=== PATIENT | male | born 1955 | race Caucasian/White ===

== ENCOUNTER 2022-11-01 13:18 | Outpatient (REF) | payer OTHER, SELFPAY ==
[2022-11-01 14:51] LABS: Hematocrit 40.1 % (42.0-52.0); Hemoglobin 13.8 g/dl (14.0-18.0); Mean Corpuscular HGB Conc 34.4 g/dl (31.0-36.0); Mean Corpuscular Hemoglobin 31.9 pg (27.0-33.0); Mean Corpuscular Volume 92.8 fL (80.0-98.0); Mean Platelet Volume 9.9 fL (9.4-12.4); Platelet Count 190 X10*3/uL (160-400); Red Blood Count 4.32 X10*6/uL (4.60-5.80); Red Cell Distribution Width 11.9 % (11.0-16.0); White Blood Count 9.4 X10*3/uL (4.8-10.8)
[2022-11-01 16:13] LABS: Ferritin 467 ng/mL (20-250); Folate 8.1 ng/mL (> or = 4.0); Vitamin B12 235 pg/mL (200-900)
[2022-11-01 16:51] LABS: Alanine Aminotransferase 11 U/L (0-40); Albumin Level 4.2 g/dL (3.5-5.0); Alkaline Phosphatase 76 U/L (39-117); Anion Gap 13 (12-20); Aspartate Amino Transferase 14 U/L (5-37); Bilirubin Total 0.8 mg/dL (0.0-1.0); Blood Urea Nitrogen 7 mg/dL (9-16); Calcium 9.4 mg/dL (8.4-10.2); Carbon Dioxide 25 mmol/L (22-29); Chloride 103 mmol/L (96-108); Estimated Glomerular Filt Rate > 60; Glucose Random 55 mg/dL (60-115); Iron 85 mcg/dL (45-160); Percent Iron Saturation 36 % (15-50); Potassium 4.1 mmol/L (3.3-5.1); Sodium 137 mmol/L (135-145); Total Iron Binding Capacity 236 mcg/dL (228-428); Total Protein 6.9 g/dL (6.5-8.0); Unsaturated Iron Binding 151 ug/dL
[2022-11-03 22:53] LABS: Immunoglobulin A 237 mg/dL (70-320)
[2022-11-04 07:13] LABS: Transglutaminase IgA <1.0 U/mL
== END 2022-11-01 13:19 | disposition home or self-care (01) ==
LOC: HO.LAB 13:18
PROVIDERS: PCP Internal Medicine; Visit Provider Internal Medicine
DX: K92.1 Melena (principal)
CPT/HCPCS: 36415; 80053; 82607; 82728; 82746; 82784; 83540; 85027; 86364; 99202

== ENCOUNTER 2022-12-21 11:02 | Day surgery (SDC) | payer OTHER, SELFPAY ==
--- NOTE | 2022-12-20 10:38 | HO.ANESPROP2 ---
HPI - Anesthesia Eval Consult details Narrative: 67yo M for Upper Endoscopy and Colonoscopy PMFSH Active Problems Active Problems: All Active Problems (Updated 11/01/22 @ 13:43 by Yana Mendoza MD) Melena (Acute) Past Medical History Medical History Hx of blood clots Talar dome fracture Family History Family History Mother Intestinal cancer Surgical History Surgical History History of esophagogastroduodenoscopy (EGD) History of surgery on wrist Hx of cataract surgery Hx of colonoscopy Hx of gastric bypass Hx of neck surgery Hx of shoulder surgery Hx of spinal surgery Hx of total knee replacement Social History Social History Household Members: Spouse Alcohol intake: current Alcohol intake frequency: a few times a week Patient Tobacco Use Status: Former Tobacco user Meds Allergies Allergy/AdvReac Type Severity Reaction Status Date / Time No Known Allergies Allergy Verified 12/21/22 11:51 Home Medications Medication Instructions Recorded Confirmed Last Taken Type alfuzosin 10 mg tablet,extended 10 mg PO DAILY 11/01/22 12/21/22 Unknown History release 24 hr amoxicillin 250 mg capsule 250 mg PO BID PRN 11/01/22 Unknown History diclofenac sodium 1 % topical gel g topical BID 11/01/22 Unknown History gabapentin 600 mg tablet 600 mg PO TID 11/01/22 12/21/22 Unknown History sulindac 150 mg tablet 150 mg PO BID 11/01/22 12/21/22 Unknown History tadalafil 5 mg tablet 5 mg PO DAILY 11/01/22 12/21/22 Unknown History tolterodine 4 mg capsule,extended 4 mg PO DAILY 11/01/22 12/21/22 Unknown History release 24 hr Exam Exam Date and Time: December 20, 2022 1038 Pertinent Lab Results Pertinent Lab Results: Laboratory Tests 11/01/22 11/01/22 14:03 14:03 WBC 9.4 Hgb 13.8 L Hct 40.1 L Plt Count 190 Sodium 137 Potassium 4.1 Chloride 103 Carbon Dioxide 25 BUN 7 L Creatinine 0.84 Assessment and Plan Assessment Anesthesia Assessment: Chart Reviewed
[2022-12-21 11:35] VITALS: BMI 37.2
--- NOTE | 2022-12-21 11:41 | MHC.SHP ---
Pre-Procedural Eval Section A Date of Service: 12/21/22 Section B Chief Complaint: Melena,anemia, Details of Present Illness: PMH: Hx of blood clots Talar dome fracture Surgical History: History of esophagogastroduodenoscopy (EGD) History of surgery on wrist Hx of cataract surgery Hx of colonoscopy Hx of gastric bypass Hx of neck surgery Hx of shoulder surgery Hx of spinal surgery Hx of total knee replacement Relevant Social History: None Present Medications: see Short Stay Collaborative assessment Allergies: Allergies Allergy/AdvReac Type Severity Reaction Status Date / Time No Known Allergies Allergy Verified 11/01/22 13:22 Review of Systems Review of Systems Comment: Ten point ROS negative Exam Exam Comment: Gen appear: No acute distress HEENT: no icterus Chest: No overt resp distress Abd: soft, nontender, nondistended Psych: Stable affect, answering questions appropriately Neuro: A/Ox3 noted to move all extremities spontaneously Ext: no peripheral edema Plan Diagnosis/Plan: Unchanged I have reviewed the history and physical and performed a pertinent physical examination on my patient. No changes have occurred unless specified. Time Spent With Patient Time: Total time managing care of this patient today ____ minutes.
--- NOTE | 2022-12-21 11:51 | P.OP_ITS ---
Operative Note Operative Note Date of Service: 12/21/22 Narrative: Procedure:?Esophagogastroduodenoscopy and colonoscopy Endoscopist:?Yana Mendoza MD Indication:?? Colitis, abd pain, N,V Anesthesia Provider:?Estela Farmer MD Anesthesia Type:?MAC Instrument:?Olympus GIF-H190, PCF-H190L EGD Procedure:?? The procedure, indications, preparation and potential complications were reviewed with the patient, who indicated understanding and gave written informed consent to proceed. A physical exam was performed. The endoscope was introduced through the mouth, and advanced to the jejunum. The mucosa was carefully examined on slow withdrawal of the endoscope.? There were no immediate complications.? Patient tolerated the procedure well. EGD Findings:? * Esophagus:? Normal mucosa noted in the entire esophagus.? The Z-line is at 35 cm. There was a large hiatal hernia with diaphragmatic pinch at 42 cm. * Stomach:? Erythema erosions with oozing were noted in the hiatal hernia. The gastrojejunal anastomosis is at 47 cm. Cold forceps biopsies were taken to r/o H pylori. * Jejunum:? Normal jejunal mucosa was noted in both the limbs. Cold forceps biopsies were taken for histology. Colonoscopy Procedure:? The patient was then turned for the colonoscopy. A digital rectal exam was performed which was abnormal for external hemorrhoids.? A distal attachment cap was affixed to the tip of the scope and the colonoscope was then inserted through the anus and advanced through the colon to the cecum at 75 cm and terminal ileum. Appendiceal orifice and ileocecal valve were identified. Mucosa was carefully examined under high definition white light as the instrument was slowly withdrawn in a retrograde panoramic fashion. Retroflexion was performed in rectum. The procedure was not difficult. There were no immediate obvious complications. The quality of the prep was BBPS: 2+2+2 = adequate Withdrawal time: 13 minutes Limitations: No limitation. Findings: Mucosa: Scant melena was noted in left side of the colon which was flushed and suctioned. Normal mucosa to cecum and terminal ileum.? Protruding lesions: * Medium internal hemorrhoids without stigmata of recent bleeding. Excavated lesions: * Diverticulosis throughout whole colon. Impression: 1. Normal esophageal mucosa 2. Oscar erosions 3. Hiatal hernia 4. Gastrojejunal bypass (biopsy) 5. Normal jejunal mucosa (biopsy) 6. Normal colon and terminal ileum mucosa 7. Diverticulosis 8. Internal and external hemorrhoids Recommendations:?? * Anemia and melena likely 2/2 spontaneously oozing Oscar erosions. * Continue PPI therapy * Avoid NSAIDs * Follow path results * Repeat colonoscopy in 5 years due to fam hx of CRC
--- NOTE | 2022-12-21 11:55 | HO.ANESPROP2 ---
[facility] Active Problems Active Problems: All Active Problems (Updated 11/01/22 @ 13:43 by Yana Mendoza MD) Melena (Acute) Past Medical History Medical History Hx of blood clots Talar dome fracture Functional capacity: independent ambulation Family History Family History Mother Intestinal cancer Surgical History Surgical History History of esophagogastroduodenoscopy (EGD) History of surgery on wrist Hx of cataract surgery Hx of colonoscopy Hx of gastric bypass Hx of neck surgery Hx of shoulder surgery Hx of spinal surgery Hx of total knee replacement Social History Social History Household Members: Spouse Alcohol intake: current Alcohol intake frequency: a few times a week Patient Tobacco Use Status: Former Tobacco user Are you DNR?: No Advance Directives: No Advance Directives Information Provided: Yes Nutrition Risks: No Nutritional Risk Meds Allergies Allergy/AdvReac Type Severity Reaction Status Date / Time No Known Allergies Allergy Verified 12/21/22 11:51 Active Medications: Current Medications Lactated Ringer's (Lr) 1,000 mls @ 100 mls/hr IVCONT .Q10H [facility] Home Medications Medication Instructions Recorded Confirmed Last Taken Type alfuzosin 10 mg tablet,extended 10 mg PO DAILY 11/01/22 Unknown History release 24 hr amoxicillin 250 mg capsule 250 mg PO BID PRN 11/01/22 Unknown History diclofenac sodium 1 % topical gel g topical BID 11/01/22 Unknown History gabapentin 600 mg tablet 600 mg PO TID 11/01/22 Unknown History meloxicam 7.5 mg tablet 7.5 mg PO BID 11/01/22 Unknown History omeprazole 20 mg capsule,delayed 20 mg PO DAILY 11/01/22 Unknown History release sulindac 150 mg tablet 150 mg PO BID 11/01/22 Unknown History tadalafil 5 mg tablet 5 mg PO DAILY 11/01/22 Unknown History tolterodine 4 mg capsule,extended 4 mg PO DAILY 11/01/22 Unknown History release 24 hr Exam Exam Date and Time: December 21, 2022 1155 Height,Weight and Vital Signs: Height 6 ft Weight 124.284 kg Airway Mallampati Class: III TM Dist: >3cm Neck ROM: Full Denture: Upper and Lower Heart: RRR Lungs: CTA Assessment and Plan Final Anesthetic Review ASA Class: III Final Preanesthetic Review: Meds/Allgs Chart Reviewed, Consent Obtained/Reviewed and Anes Risks/Benef Reviewed Patient Risk: Intermediate Procedure Risk: Low Anesthetic Plan Anesthetic Plan: MAC: Disposition: Standard PACU
[2022-12-21] MEDS: Lactated Ringers 1,000 ML 100 ML IVCONT (11:59)
[2022-12-21 12:10] VITALS: BP 124/80; PULSE 78; RESP 18; TEMP 36.6; O2SAT 95
--- NOTE | 2022-12-21 12:36 | PC.NURSE ---
dr. felix aware that patient recently completed a 14 days holter monitor at [facility] and patient stated no findings.
[2022-12-21 13:24] VITALS: BP 121/60; PULSE 96; RESP 16; TEMP 37.2; O2SAT 96
--- NOTE | 2022-12-21 13:33 | HO.POSTANES ---
Post Anesthesia Evaluation Post Anesthesia Evaluation Date of Service: 12/21/22 Vital Signs: Vital Signs Temp Pulse Resp BP Pulse Ox O2 Del Method 12/21/22 12:10 97.9 F 78 18 124/80 95 Room Air Anesthesia: Monitored Mental Status: Awake Pain Control: Satisfactory Nausea/Vomiting: None Hydration: Adequate Anesthesia-Related Issues: No Anes. Related Issues
[2022-12-21 13:39] VITALS: BP 120/67; PULSE 76; RESP 16; TEMP 37.2; O2SAT 97
== END 2022-12-21 14:23 | disposition home or self-care (01) ==
PROVIDERS: PCP Internal Medicine; Visit Provider Internal Medicine
PROC: (CPT 45378; principal; 2022-12-21 13:10)
DX: K92.1 Melena (principal); Z80.0 Family history of malignant neoplasm of digestive organs; K57.30 Diverticulosis of large intestine without perforation or abscess without bleeding; K64.8 Other hemorrhoids; K64.4 Residual hemorrhoidal skin tags; D64.9 Anemia, unspecified; K25.4 Chronic or unspecified gastric ulcer with hemorrhage; K44.9 Diaphragmatic hernia without obstruction or gangrene; Z79.899 Other long term (current) drug therapy; Z98.84 Bariatric surgery status; Z98.0 Intestinal bypass and anastomosis status; Z98.890 Other specified postprocedural states; Z87.891 Personal history of nicotine dependence
CPT/HCPCS: 45378; 43239; 88305; 88342

== ENCOUNTER → 2022-12-21 11:02 | Outpatient (BNV) | payer OTHER, SELFPAY | PROVIDERS: PCP Internal Medicine; Visit Provider Internal Medicine | DX: K25.9 Gastric ulcer, unspecified as acute or chronic, without hemorrhage or perforation (principal); K57.30 Diverticulosis of large intestine without perforation or abscess without bleeding; K64.8 Other hemorrhoids | CPT/HCPCS: 43239; 45378 ==

== ENCOUNTER 2023-01-12 13:22 | Outpatient (AMB) | payer OTHER, SELFPAY ==
--- NOTE | 2023-01-12 13:24 | A.OFFVIS_ITS ---
Intake Vital Signs 01/12/23 13:25 Height 6 ft Weight 250 lb BMI 33.9 BP 94/57 L Blood Pressure Location Rt brachial Position Sitting Pulse 71 Intake Visit Reasons: s/p egd/colon Intake Note: Aris presents in the office today in follow up of EGD/ Colonosocopy. CC: He reports he continues to have black stools and iron taste . Patient decreased Omeprazole from BID to QD due to hives and is now taking Pepcid AC at bedtime. 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 11/01/22: Pt reports he first noticed black stools 1.5y ago and now becoming more frequent. Last black BM was today. Stools are loose. Reports nausea and frequent burping with this. No change in appetite, has been gaining weight in fact. USed to take meloxicam BID but stopped it a few months ago due to black stools. Had blood work done just today at [place], but we do not records for these. Does not recall if he has anemia but likely did have iron deficiency at some point as reports being on iron supplements for 2-3 years now. Last colo was 3 years ago done at [facility], no polyps but was told to return in 5 years due to fam hx of CRC in mother. 12/21/22: Impression: 1. Normal esophageal mucosa 2. Oscar erosions 3. Hiatal hernia 4. Gastrojejunal bypass (biopsy) 5. Normal jejunal mucosa (biopsy) 6. Normal colon and terminal ileum mucosa 7. Diverticulosis 8. Internal and external hemorrhoids Recommendations:?? * Anemia and melena likely 2/2 spontaneously oozing Oscar erosions. * Continue PPI therapy * Avoid NSAIDs * Follow path results * Repeat colonoscopy in 5 years due to fam hx of CRC? Path: A.? Jejunum, biopsy:? Small intestinal mucosa with patchy hemosiderin deposition; otherwise within normal limits. B.? Blind limb, biopsy:? Small intestinal mucosa with patchy hemosiderin depo sition and reactive appearing lymphoid aggregates; otherwise within normal limits. C.? Stomach, biopsy:? Oxyntic mucosa with mild chronic inactive inflammation; no Helicobacter organisms seen. 01/12/23: Had ??hives after increasing omeprazole to BID so has now switched to taking omeprazole 20 in AM and pepcid 20 in PM. Continues to notice black stools occasionally but also remains on iron supplements. Otherwise no abd pain, N,V. PFSH Medical History (Updated 01/12/23 @ 14:05 by Yana Mendoza MD) Hx of blood clots Talar dome fracture Surgical History (Updated 01/12/23 @ 14:05 by Yana Mendoza MD) History of esophagogastroduodenoscopy (EGD) History of surgery on wrist Hx of cataract surgery Hx of colonoscopy Hx of gastric bypass Hx of neck surgery Hx of shoulder surgery Hx of spinal surgery Hx of total knee replacement Family History Mother Intestinal cancer Social History Household Members: Spouse Alcohol intake: current Alcohol intake frequency: a few times a week Patient Tobacco Use Status: Former Tobacco user Review of Systems Const All systems reviewed & are unremarkable except as noted in HPI and below Physical Exam Vital Signs: Last Vital Signs Pulse 71 01/12/23 13:25 BP 94/57 L 01/12/23 13:25 BMI result Body Mass Index 33.9 Gen appear: NAD HEENT: nonicteric, no cervical lymphadenopathy Chest: CTA CVS: Regular S1/S2 Abd: soft, nontender, nondistended, bowel sounds + Ext: no peripheral edema Neuro: A/Ox3, noted to move all extremities spontaneously Psych: interacting appropriately Assessment & Plan Assessment & Plan (1) Anemia: Code(s): D64.9 - Anemia, unspecified (2) Melena: Code(s): K92.1 - Melena (3) Hx of gastric bypass: Code(s): Z98.84 - Bariatric surgery status Plan Reviewed with the pt that LUIS likely a combination of poor absorption with RYGB and oozing from Oscar erosions. Plan: - Check CBC and ferritin - If improving, will discontinue night time pepcid and monitor - If not improving will trial IV iron and review response in 3 months - Surgery referral if has evidence of ongoing losses i.e iron stores drop again after adequate repletion Follow up in 3 months Orders: Orders Complete Blood Count no Diff Today K92.1 - Melena Ferritin Today K92.1 - Melena Medications: New omeprazole 40 mg PO DAILY 90 caps 0RF Discontinued omeprazole Discontinued Reason: Doctor's Order 20 mg PO DAILY Coding Level of Care Code Est Pt Level 4 (43323) Diagnoses Anemia D64.9 Melena K92.1 Hx of gastric bypass Z98.84
[2023-01-12 13:25] VITALS: BP 94/57; PULSE 71; BMI 33.9
== END 2023-01-12 14:01 | disposition home or self-care (01) ==
PROVIDERS: PCP Internal Medicine; Visit Provider Internal Medicine
DX: D64.9 Anemia, unspecified (principal); K92.1 Melena; Z98.84 Bariatric surgery status
CPT/HCPCS: 99214

== ENCOUNTER 2023-01-12 13:22 | Outpatient (REF) | payer OTHER, SELFPAY ==
[2023-01-12 15:24] LABS: Hematocrit 38.4 % (42.0-52.0); Hemoglobin 13.3 g/dl (14.0-18.0); Mean Corpuscular HGB Conc 34.6 g/dl (31.0-36.0); Mean Corpuscular Volume 92.5 fL (80.0-98.0); Mean Platelet Volume 9.7 fL (9.4-12.4); Platelet Count 173 X10*3/uL (160-400); Red Blood Count 4.15 X10*6/uL (4.60-5.80); Red Cell Distribution Width 11.8 % (11.0-16.0); White Blood Count 7.9 X10*3/uL (4.8-10.8)
[2023-01-12 16:47] LABS: Ferritin 493 ng/mL (20-250)
== END 2023-01-12 13:23 | disposition home or self-care (01) ==
LOC: HO.LAB 13:22
PROVIDERS: PCP Internal Medicine; Visit Provider Internal Medicine
DX: K92.1 Melena (principal); D64.9 Anemia, unspecified; Z98.84 Bariatric surgery status
CPT/HCPCS: 36415; 82728; 85027; 99212

== ENCOUNTER 2023-01-31 07:10 | Outpatient (REF) | payer OTHER, SELFPAY ==
--- NOTE | ~2023-01-31 | XR_ITS ---
EXAMINATION: XR SHOULDER, RIGHT CLINICAL INFORMATION: Pain in right shoulder COMPARISON: None available. TECHNIQUE: Two views of the right shoulder. FINDINGS: No evidence for acute fracture or dislocation. Scapula intact. There is slight narrowing in the right glenohumeral joint space. Small spurring of the inferior right glenoid fossa. There is a tiny calcification in the distribution of the rotator cuff above the greater tuberosity, cannot consistent with calcific tendinitis. Degenerative change of the right AC joint with a small cephalic ossicle observed as well. XR/XR shoulder RT min 2V IMPRESSION: 1. No acute process. Degenerative changes as described. 2. Findings suggestive of calcific tendinitis of the rotator cuff. 3. Other incidental findings as noted above.
== END 2023-01-31 07:11 | disposition home or self-care (01) ==
LOC: HO.HOSX 07:10
PROVIDERS: Visit Provider Orthopaedic Surgery
DX: M25.811 Other specified joint disorders, right shoulder (principal)
CPT/HCPCS: 20610; 73030; J3301

== ENCOUNTER 2023-01-31 13:22 | Outpatient (AMB) | payer OTHER, SELFPAY ==
--- NOTE | 2023-01-31 13:47 | MHC.OFFVIS ---
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 De La Cruz with complaints of right shoulder pain. Hx of right shoulder surgery to remove calcium deposit about 15 years ago. Patient reports pain presented about 3-4 weeks, states this morning throbbing pain. Limited ROM due to pain. He has pressure at the top of his shoulder and numbness that travels down his arm. Finds no relief with ibuprofen. He has done physical therapy exercises which aggravated his pain. He wishes to hold off on further surgery if at all possible. Allergies No Known Allergies Allergy (Verified 01/31/23 14:04) Medication List - Last Reconciled 01/31/23 by Victorino De La Cruz MD alfuzosin ER 10 mg PO DAILY amoxicillin 250 mg PO BID PRN diclofenac sodium 1% grams topical BID famotidine (Pepcid AC) 20 mg PO BEDTIME fluocinonide 0.05% 1 appl topical BID gabapentin 600 mg PO TID omeprazole 40 mg PO DAILY oxybutynin chloride ER 10 mg PO DAILY sulindac 150 mg PO BID tadalafil 5 mg PO DAILY tolterodine ER 4 mg PO DAILY PFSH Medical History (Updated 01/31/23 @ 14:21 by Victorino De La Cruz MD) Hx of blood clots Talar dome fracture Surgical History (Updated 01/31/23 @ 13:55 by JOCELYNE Raymundo) History of decompression of ulnar nerve History of esophagogastroduodenoscopy (EGD) History of surgery on wrist Hx of cataract surgery Hx of colonoscopy Hx of gastric bypass Hx of neck surgery Hx of shoulder surgery Hx of spinal surgery Hx of total knee replacement Family History Mother Intestinal cancer Social History (Updated 01/31/23 @ 13:55 by JOCELYNE Raymundo) Household Members: Spouse Alcohol intake: current Alcohol intake frequency: a few times a week Patient Tobacco Use Status: Former Tobacco user Current occupational status: employed 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, 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 Physical Exam Const Other: Well-nourished well-developed very friendly male awake alert and oriented x3 in no acute distress Extrem Other: Bilateral upper extremity examination shows good capillary refill, no skin lesions noted, normal sensation light touch Right shoulder examination shows decreased range of motion when compared to his left shoulder, 4+ out of 5 strength with supraspinatus testing, positive impingement signs, tenderness over his acromioclavicular joint, no instability Office Procedures Joint Injection/Drain Joint Injection/Drain Primary Site: right shoulder Prep: site was prepped using aseptic technique Injected: 40 mg of, Kenalog and 1% plain lidocaine Procedure: The patient tolerated the procedure well Coding - Large joint Procedure code (CPT) selection complete Results Reviewed Results Reviewed: X-rays of the patient's right shoulder show severe acromioclavicular joint narrowing, type 2 acromion, no acute Assessment & Plan Assessment & Plan (1) Impingement of right shoulder: Code(s): M25.811 - Other specified joint disorders, right shoulder Plan: Mr. Hernandez presents with right shoulder pain most likely due to impingement syndrome as well as possible rotator cuff tearing. I had a lengthy discussion with the patient regarding the treatment options. The risks and benefits of a right shoulder cortisone injection were discussed at length with the patient. The patient wished to proceed. He tolerated the injection well. He will continue with his home stretching program to prevent stiffness. The do's and don'ts of lifting were discussed at length with the patient. He will contact me prior to his follow-up appointment in 2-3 months should any questions or concerns arise. If he does not get lasting relief from the cortisone injection therapy I will order an MRI of his right shoulder to further evaluate the status of his rotator cuff tendons. Feel free to call me at any time should questions regarding his orthopedic management arise. I spent 22 minutes in reviewing the patient's records and imaging studies, seeing the patient and documenting in the medical record. Orders: Orders XR shoulder RT min 2V Today M25.511 - Pain in right shoulder AMB Joint Injection/Aspiration Today M25.811 - Other specified joint disorders, right shoulder Coding Level of Care Code Est Pt Level 2 (69037) Diagnoses Impingement of right shoulder M25.811 CPT Codes Coding - 56364 Large joint: 54260 - Large joint ([id number])
[2023-01-31 14:04] VITALS: BMI 33.9
== END 2023-01-31 14:24 | disposition home or self-care (01) ==
PROVIDERS: PCP Internal Medicine; Visit Provider Orthopaedic Surgery
DX: M25.811 Other specified joint disorders, right shoulder (principal)
CPT/HCPCS: 20610; 99204; 99214

== ENCOUNTER 2023-04-04 08:14 | Outpatient (AMB) | payer OTHER, SELFPAY ==
[2023-04-04 08:16] VITALS: BMI 33.9
--- NOTE | 2023-04-04 08:16 | A.OFFVIS_ITS ---
Intake Vital Signs 04/04/23 08:16 Height 6 ft Weight 250 lb BMI 33.9 Intake Visit Reasons: ov- right shoulder pain Intake Note: Mr. Hernandez presents with progressively worsening right shoulder pain and weakness. He describes his pain as sharp and severe in nature. He did undergo right shoulder arthroscopic surgery several years ago. He re-injured his shoulder approximately 2 years ago while lifting a heavy object. Since that time his pain and weakness have gotten worse in spite of continued non operative treatments. He has done physical therapy for 12 weeks over the last 6 months which aggravated his pain. He has also had multiple cortisone injections. The most recent injection gave him minimal relief. Patient has tried Tylenol and anti-inflammatory medicines which gave him only mild relief. The patient reports weakness when lifting his right hand above shoulder height. Allergies No Known Allergies Allergy (Verified 04/04/23 08:22) Medication List - Last Reconciled 04/04/23 by Victorino De La Cruz MD alfuzosin ER 10 mg PO DAILY amoxicillin 250 mg PO BID PRN diclofenac sodium 1% grams topical BID famotidine (Pepcid AC) 20 mg PO BEDTIME fluocinonide 0.05% 1 appl topical BID gabapentin 600 mg PO TID omeprazole 40 mg PO DAILY oxybutynin chloride ER 10 mg PO DAILY sulindac 150 mg PO BID tadalafil 5 mg PO DAILY tolterodine ER 4 mg PO DAILY [facility] Medical History (Updated 01/31/23 @ 14:21 by Victorino De La Cruz MD) Hx of blood clots Talar dome fracture Surgical History (Updated 01/31/23 @ 13:55 by Kathryn Soriano [facility]) History of decompression of ulnar nerve History of surgery on wrist Hx of total knee replacement Hx of spinal surgery Hx of gastric bypass Hx of shoulder surgery Hx of neck surgery Hx of cataract surgery Hx of colonoscopy History of esophagogastroduodenoscopy (EGD) Family History (Reviewed 01/12/23 @ 13:34 by Flora Rodriguez [facility] Mother Intestinal cancer Social History Household Members: Spouse Alcohol intake: current Alcohol intake frequency: a few times a week Patient Tobacco Use Status: Former Tobacco user Current occupational status: employed 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, 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 Physical Exam Vital Signs: BMI result Body Mass Index 33.9 Const Other: Well-nourished well-developed very friendly male awake alert and oriented x3 in no acute distress Extrem Other: Bilateral upper extremity examination shows good capillary refill, no skin lesions noted, normal sensation light touch Right shoulder examination shows decreased range of motion when compared to his left shoulder, 4/5 strength with supraspinatus testing, positive impingement signs, tenderness over his acromioclavicular joint, no instability Results Reviewed Results Reviewed: X-rays of the patient's right shoulder show severe acromioclavicular joint narrowing, a type 2 acromion, no acute bony abnormalities Assessment & Plan Assessment & Plan (1) Right shoulder pain: Code(s): M25.511 - Pain in right shoulder Plan: Mr. Hernandez presents with progressively worsening right shoulder pain and weakness due to impingement syndrome, acromioclavicular joint arthritis and possible rotator cuff tearing. Thus, I will send the patient for an MRI of his right shoulder for further evaluation of his rotator cuff tendons. If he does have a full-thickness tear I will recommend surgical repair to optimize his future functional level. I will see him back once the MRI is completed to discuss findings and treatment options. Feel free to call me at any time should questions regarding his orthopedic management arise. I spent 22 minutes in reviewing the patient's records and imaging studies, seeing the patient and documenting in the medical record. Orders: Orders MR shoulder RT wo con Today M25.511 - Pain in right shoulder Coding Level of Care Code Est Pt Level 2 (92491) Diagnoses Right shoulder pain M25.511
== END 2023-04-04 08:38 | disposition home or self-care (01) ==
PROVIDERS: PCP Internal Medicine; Visit Provider Orthopaedic Surgery
DX: M25.511 Pain in right shoulder (principal)
CPT/HCPCS: 99212

== ENCOUNTER → 2023-04-04 08:14 | Outpatient (BNVA) | payer OTHER, SELFPAY | PROVIDERS: PCP Internal Medicine; Visit Provider Orthopaedic Surgery | DX: M25.511 Pain in right shoulder (principal) | CPT/HCPCS: 99212 ==

== ENCOUNTER 2023-04-09 13:04 | Outpatient (AMB) | payer OTHER, SELFPAY ==
--- NOTE | 2023-04-09 13:11 | A.OFFVIS_ITS ---
Intake Vital Signs 04/09/23 13:13 Height 6 ft Weight 277 lb 12.519 oz BMI 37.7 BP 119/77 Blood Pressure Location Lt brachial Pulse 70 Intake Visit Reasons: 3 month fu anemia Intake Note: Aris presents in the office as a 3 month follow up. CC: He states that he is not having concerns since his last procedure. He is more concerned of his labs and that his pcp is saying he may be prediabetic. Box Blank Machine Feeder Required: No Allergies No Known Allergies Allergy (Verified 04/09/23 13:16) HPI HPI Comments History of Present Illness Details 67 y.o M with PMH of who is here for int ermittent black stools. 11/01/22: Pt reports he first noticed black stools 1.5y ago and now becoming more frequent. Last black BM was today. Stools are loose. Reports nausea and frequent burping with this. No change in appetite, has been gaining weight in fact. USed to take meloxicam BID but stopped it a few months ago due to black stools. Had blood work done just today at [facility], but we do not records for these. Does not recall if he has anemia but likely did have iron deficiency at some point as reports being on iron supplements for 2-3 years now. Last colo was 3 years ago done at [facility], no polyps but was told to return in 5 years due to fam hx of CRC in mother. 12/21/22: Impression: 1. Normal esophageal mucosa 2. Oscar erosions 3. Hiatal hernia 4. Gastrojejunal bypass (biopsy) 5. Normal jejunal mucosa (biopsy) 6. Normal colon and terminal ileum mucos a 7. Diverticulosis 8. Internal and external hemorrhoids Recommendations:?? * Anemia and melena likely 2/2 spontaneously oozing Oscar erosions. * Continue PPI therapy * Avoid NSAIDs * Follow path results * Repeat colonoscopy in 5 years due to fam hx of CRC? Path: A.? Jejunum, biopsy:? Small intestinal mucosa with patchy hemosiderin deposition; otherwise within normal limits. B.? Blind limb, biopsy:? Small intestinal mucosa with patchy hemosiderin deposition and reactive appearing lymphoid aggregates; otherwise within normal limits. C.? Stomach, biopsy:? Oxyntic mucosa with mild chronic inactive inflammation; no Helicobacter organisms seen. 01/12/23: Had ??hives after increasing omeprazole to BID so has now switched to taking omeprazole 20 in AM and pepcid 20 in PM. Continues to notice black stools occasionally but also remains on iron supplements. Otherwise no abd pain, N,V. 04/09/23: Here for follow up - had blood work done through his PCP in Feb which shows H/H stable. No iron studies available. Pt himself reports no abd pain, melena has resolved. Continues to take omeprazole 20mg in AM and famotidine 20mg in PM however did NOT go back on iron supplements as previously discussed. [facility] Medical History Hx of blood clots Talar dome fracture Surgical History History of decompression of ulnar nerve History of surgery on wrist Hx of total knee replacement Hx of spinal surgery Hx of gastric bypass Hx of shoulder surgery Hx of neck surgery Hx of cataract surgery Hx of colonoscopy History of esophagogastroduodenoscopy (EGD) Family History Mother Intestinal cancer Social History Household Members: Spouse Alcohol intake: current Alcohol intake frequency: a few times a week Patient Tobacco Use Status: Former Tobacco user Current occupational status: employed 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, 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 Physical Exam Vital Signs: Last Vital Signs Pulse 70 04/09/23 13:13 BP 119/77 04/09/23 13:13 BMI result Body Mass Index 37.7 Gen appear: NAD HEENT: nonicteric, no cervical lymphadenopathy Chest: CTA CVS: Regular S1/S2 Abd: soft, nontender, nondistended, bowel sounds + Ext: no peripheral edema Neuro: A/Ox3, noted to move all extremities spontaneously Psych: interacting appropriately Assessment & Plan Assessment & Plan (1) Anemia: Code(s): D64.9 - Anemia, unspecified (2) Melena: Code(s): K92.1 - Melena (3) Hx of gastric bypass: Code(s): Z98.84 - Bariatric surgery status Plan Anemia has stabilised and melena resolved with antisecretory therapy. Reviewed with the pt that LUIS likely a combination of poor absorption with RYGB and oozing from Oscar erosions. Pt did not go back on PO iron, so unable to comment if there is indication for IV iron on today's visit. Plan: - Check CBC and ferritin - To resume iron PO if ferritin low again - Otherwise, will discontinue night time pepcid and monitor in 3 months - If inadequate repletion with PO iron, may need IV iron Follow up in 3 months Coding Level of Care Code Est Pt Level 4 (37841) Diagnoses Anemia D64.9 Melena K92.1 Hx of gastric bypass Z98.84
[2023-04-09 13:13] VITALS: BP 119/77; PULSE 70; BMI 37.7
== END 2023-04-09 13:32 | disposition home or self-care (01) ==
PROVIDERS: PCP Internal Medicine; Visit Provider Internal Medicine
DX: D64.9 Anemia, unspecified (principal); K92.1 Melena; Z98.84 Bariatric surgery status
CPT/HCPCS: 99214

== ENCOUNTER 2023-04-09 13:04 | Outpatient (REF) | payer OTHER, SELFPAY ==
[2023-04-09 14:47] LABS: Hematocrit 40.5 % (42.0-52.0); Hemoglobin 13.8 g/dl (14.0-18.0); Mean Corpuscular HGB Conc 34.1 g/dl (31.0-36.0); Mean Corpuscular Hemoglobin 32.2 pg (27.0-33.0); Mean Corpuscular Volume 94.6 fL (80.0-98.0); Mean Platelet Volume 10.2 fL (9.4-12.4); Platelet Count 194 X10*3/uL (160-400); Red Blood Count 4.28 X10*6/uL (4.60-5.80); Red Cell Distribution Width 11.9 % (11.0-16.0)
[2023-04-09 15:21] LABS: Iron 95 mcg/dL (45-160); Percent Iron Saturation 41 % (15-50); Total Iron Binding Capacity 230 mcg/dL (228-428); Unsaturated Iron Binding 135 ug/dL
[2023-04-09 15:38] LABS: Ferritin 488 ng/mL (20-250)
[2023-04-09 15:47] LABS: Folate 4.2 ng/mL (> or = 4.0); Vitamin B12 248 pg/mL (200-900)
== END 2023-04-09 13:05 | disposition home or self-care (01) ==
LOC: HO.LAB 13:04
PROVIDERS: PCP Internal Medicine; Visit Provider Internal Medicine
DX: D64.9 Anemia, unspecified (principal); K92.1 Melena; Z98.84 Bariatric surgery status
CPT/HCPCS: 36415; 82607; 82728; 82746; 83540; 85027; 99212

== ENCOUNTER 2023-05-19 08:36 | Outpatient (REF) | payer OTHER, SELFPAY ==
--- NOTE | ~2023-05-19 | MR_ITS ---
EXAMINATION: MR SHOULDER WITHOUT CONTRAST, RIGHT CLINICAL INFORMATION: Shoulder pain. Patient reports prior surgery, calcium growth 15 years ago. COMPARISON: None available. TECHNIQUE: MRI of the shoulder without contrast was performed on a high-field scanner. FINDINGS: ROTATOR CUFF: Mild supraspinatus tendinosis, with possible small interstitial tearing in the distal anterior fibers. Mild infraspinatus tendinosis. Teres minor is intact. Mild-moderate subscapularis tendinosis, with deep surface fraying/partial tearing. No muscle atrophy or fatty infiltration. BICEPS: Biceps tendinosis and partial tearing. CORACOACROMIAL ARCH: Dysmorphic appearance of the acromion and the distal clavicle, could reflect postsurgical result. Mild acromioclavicular arthritis. Small-moderate fluid in the subacromial-subdeltoid space. LABRUM/CAPSULE: Small caliber posterior labrum. Degenerative signal in the labrum. No displaced labral tear is seen. GLENOHUMERAL JOINT/MARROW: Lesser tuberosity subcortical cysts. Minimal glenohumeral joint arthritis. No acute fracture. Small effusion. Low signal foci and effusion from synovitis/debris. MR/MR shoulder RT wo con IMPRESSION: 1. Mild supraspinatus tendinosis, with possible small interstitial tearing in the distal anterior fibers. 2. Mild infraspinatus tendinosis. Mild-moderate subscapularis tendinosis with deep surface fraying/partial tearing. 3. Biceps tendinosis and partial tearing. 4. Acromion and distal clavicle findings, could reflect postsurgical result. Correlate with surgical history. 5. Mild acromioclavicular arthritis. [id number] subacromial subdeltoid bursitis. 6. Minimal glenohumeral joint arthritis. Small effusion with synovitis/debris.
== END 2023-05-19 08:37 | disposition home or self-care (01) ==
LOC: HO.MRI 08:36
PROVIDERS: PCP Internal Medicine; Visit Provider Orthopaedic Surgery
DX: M25.511 Pain in right shoulder (principal)
CPT/HCPCS: 73221

== ENCOUNTER 2023-05-23 09:49 | Outpatient (AMB) | payer OTHER, SELFPAY ==
--- NOTE | 2023-05-23 09:53 | A.OFFVIS_ITS ---
Intake Intake Visit Reasons: OV-Right shoulder MRI review Intake Note: Aris is a 68 year old male who presents today for a MRI review of his right shoulder. The patient presents with complaints of progressively worsening right shoulder pain and weakness. He describes his pain as sharp and severe in nature. He did undergo right shoulder surgery several years ago. He got fairly good relief from that surgery initially. His symptoms have gotten worse over the last year in spite of continued non operative treatments. He has done physical therapy which aggravated his pain. He has also tried Tylenol and anti- inflammatory medicines which gave him minimal relief. He has had injections in the past which gave him no relief. The patient reports difficulty lifting his right hand above shoulder height. Allergies No Known Allergies Allergy (Verified 05/23/23 09:55) Medication List - Last Reconciled 05/23/23 by Victorino De La Cruz MD alfuzosin ER 10 mg PO DAILY amoxicillin 250 mg PO BID PRN diclofenac sodium 1% grams topical BID famotidine (Pepcid AC) 20 mg PO BEDTIME fluocinonide 0.05% 1 appl topical BID gabapentin 600 mg PO TID omeprazole 40 mg PO DAILY oxybutynin chloride ER 10 mg PO DAILY sulindac 150 mg PO BID tadalafil 5 mg PO DAILY tolterodine ER 4 mg PO DAILY PFSH Medical History Hx of blood clots Talar dome fracture Surgical History History of decompression of ulnar nerve History of surgery on wrist Hx of total knee replacement Hx of spinal surgery Hx of gastric bypass Hx of shoulder surgery Hx of neck surgery Hx of cataract surgery Hx of colonoscopy History of esophagogastroduodenoscopy (EGD) Family History Mother Intestinal cancer Social History Household Members: Spouse Alcohol intake: current Alcohol intake frequency: a few times a week Patient Tobacco Use Status: Former Tobacco user Current occupational status: employed 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, 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 Physical Exam Const Other: Well-nourished well-developed very friendly male awake alert and oriented x3 in no acute distress Extrem Other: Bilateral upper extremity examination shows good capillary refill, no skin lesions noted, normal sensation light touch Right shoulder examination shows decreased active and passive range of motion when compared to his left shoulder, 4+ out of 5 strength with supraspinatus testing, positive impingement signs, tenderness over his acromioclavicular joint, no instability Results Reviewed Results Reviewed: MRI of the patient's right shoulder show severe acromioclavicular joint narrowing, a type 2 acromion, signal change within the supraspinatus tendon due to a partial-thickness tear versus a small full-thickness rotator cuff tear Assessment & Plan Assessment & Plan (1) Impingement of right shoulder: Code(s): M25.811 - Other specified joint disorders, right shoulder Plan Mr. Hernandez presents with progressively worsening right shoulder pain and weakness due to impingement syndrome, acromioclavicular arthritis and partial- thickness rotator cuff tearing versus a small full-thickness tear. I had a lengthy discussion with the patient regarding the treatment options. At this point he has failed continued non operative treatments. The risks and benefits of right shoulder surgery were discussed at length with the patient. The patient wishes to proceed with surgery. Surgery will most likely involve right shoulder diagnostic arthroscopy with distal clavicle excision, acromioplasty and rotator cuff repair should a full-thickness tear be found at the time of his surgery. The patient will contact my office to pick a surgery date. He will follow-up as instructed. Feel free to call me at any time should questions regarding his orthopedic management arise. I spent 22 minutes in reviewing the patient's records and imaging studies, seeing the patient and documenting in the medical record. Coding Level of Care Code Est Pt Level 2 (54557) Diagnoses Impingement of right shoulder M25.811
== END 2023-05-23 10:09 | disposition home or self-care (01) ==
PROVIDERS: PCP Internal Medicine; Visit Provider Orthopaedic Surgery
DX: M75.41 Impingement syndrome of right shoulder (principal); M19.011 Primary osteoarthritis, right shoulder
CPT/HCPCS: 99213

== ENCOUNTER → 2023-05-23 09:49 | Outpatient (BNVA) | payer OTHER, SELFPAY | PROVIDERS: PCP Internal Medicine; Visit Provider Orthopaedic Surgery | DX: M25.811 Other specified joint disorders, right shoulder (principal) | CPT/HCPCS: 99212 ==

== ENCOUNTER 2023-07-13 10:43 | Day surgery (SDC) | payer OTHER, SELFPAY ==
[2023-07-04 14:03] VITALS: BMI 36.6
[2023-07-13] VITALS (7 sets, daily range): BP systolic 127–142; BP diastolic 7–92; PULSE 72–93; RESP 16; TEMP 36.4–36.6; O2SAT 93–98; BMI 37.0
[2023-07-13] MEDS: Lactated Ringers 1,000 ML 100 ML IVCONT (11:55)
--- NOTE | 2023-07-13 12:05 | P.CONAN_ITS ---
Documented by User: Pauline Crespo NP 07/06/23 13:35 HPI - Anesthesia Eval Consult details Narrative: 68yo M for Right Shoulder Arthroscopy, distal clavicle excision, acromioplasty,capsular release manipulation Medically optimized by PCP [facility] Active Problems Active Problems: All Active Problems (Updated 07/04/23 @ 14:06 by Pamela Tyler RN) Impingement of right shoulder (Acute) Right shoulder pain (Acute) Anemia (Acute) Melena (Acute) Hx of gastric bypass (Acute) Past Medical History Medical History (Updated 07/05/23 @ 13:06 by Pamela Tyler RN) Hematoma Pre-diabetes Hearing loss Diverticulosis Lumbar stenosis Syncope Osteoarthritis BPH (benign prostatic hyperplasia) Heart abnormality GERD (gastroesophageal reflux disease) Anemia Family History Family History Mother Intestinal cancer Surgical History Surgical History (Updated 07/04/23 @ 14:06 by Pamela Tyler RN) History of evacuation of hematoma History of ankle surgery Hx of excision of mass History of decompression of ulnar nerve History of surgery on wrist Hx of total knee replacement Hx of spinal surgery Hx of gastric bypass Hx of shoulder surgery Hx of neck surgery Hx of cataract surgery Hx of colonoscopy History of esophagogastroduodenoscopy (EGD) Social History Social History Household Members: Spouse Are you a primary manager medicare marketing to a significant other at home: No Do you presently have visiting nurse or other home services: No Alcohol intake: current Alcohol intake frequency: a few times a week Patient Tobacco Use Status: Former Tobacco user Quit Date: 1978 Years Smoked: 10 Use of substances other than those prescribed or required for medical reasons: No Have you been hit, kicked, punched, or otherwise hurt by someone within the past year? If so, by whom?: No Are you DNR?: Yes Advance Directives: No Advance Directives Information Provided: Yes Advance Directives on File: No Recently lost weight without trying: No Eating poorly because of decreased appetite: No Nutrition Risks: No Nutritional Risk Current occupational status: employed 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, 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 Meds Allergies Allergy/AdvReac Type Severity Reaction Status Date / Time No Known Allergies Allergy Verified 05/23/23 09:55 Home Medications Medication Instructions Recorded Confirmed Last Taken Type alfuzosin 10 mg tablet,extended 10 mg PO BEDTIME 11/01/22 07/05/23 Unknown History release 24 hr diclofenac sodium 1 % topical gel 1 ea topical BID 11/01/22 07/04/23 Unknown History gabapentin 600 mg tablet 600 mg PO TID 11/01/22 07/04/23 07/13/23 History tadalafil 5 mg tablet 5 mg PO QAM 11/01/22 07/04/23 Unknown History tolterodine 4 mg capsule,extended 4 mg PO QAM 11/01/22 07/04/23 Unknown History release 24 hr oxybutynin chloride 10 mg 20 mg PO QAM 01/12/23 07/04/23 07/13/23 History tablet,extended release 24 hr fluocinonide 0.05 % topical cream 1 appl topical BID 01/31/23 07/04/23 Unknown History acetaminophen 650 mg 1,300 mg PO Q8H 07/04/23 07/04/23 Unknown History tablet,extended release meloxicam submicronized 10 mg 10 mg PO QAM 07/04/23 07/04/23 Unknown History capsule omeprazole 40 mg capsule,delayed 40 mg PO QAM 07/05/23 07/05/23 07/13/23 History release amoxicillin 500 mg capsule 2,000 mg PO DAILY 07/13/23 07/13/23 07/13/23 History Exam Height,Weight and Vital Signs: Height 6 ft Weight 122.47 kg Pertinent Lab Results Pertinent Lab Results: CBC and BMP from outside facility 07/04/23 WNL Narrative Narrative: EKG 07/04/23 SR @ 96 LAFB No change from previous Echo 06/2022 Nml LV size and wall thickness. Nml RWM. Low-nml LV systolic function. LVEF 50- 55%. Indeterminate diastolic function. RV not well seen but appears mildly enlarged. Nml RV global sys function. PASP could not be obtained. Mildly dilated LA No hemodynamically significant valve disease. Aortic root dilation @ 4.3cm Assessment and Plan Assessment Anesthesia Assessment: Chart Reviewed Documented by User: Margi Osman DO 07/13/23 12:25 [facility] Past Medical History Medical History (Updated 07/05/23 @ 13:06 by Pamela Tyler, JITENDRA) Hematoma Pre-diabetes Hearing loss Diverticulosis Lumbar stenosis Syncope Osteoarthritis BPH (benign prostatic hyperplasia) Heart abnormality GERD (gastroesophageal reflux disease) Anemia Family History Family History Mother Intestinal cancer Family history of problems with anesthesia: No Surgical History Surgical History (Updated 07/04/23 @ 14:06 by Pamela Tyler, JITENDRA) History of evacuation of hematoma History of ankle surgery Hx of excision of mass History of decompression of ulnar nerve History of surgery on wrist Hx of total knee replacement Hx of spinal surgery Hx of gastric bypass Hx of shoulder surgery Hx of neck surgery Hx of cataract surgery Hx of colonoscopy History of esophagogastroduodenoscopy (EGD) History of Problems with Anesthesia: No Social History Social History Household Members: Spouse Are you a primary manager medicare marketing to a significant other at home: No Do you presently have visiting nurse or other home services: No Alcohol intake: current Alcohol intake frequency: a few times a week Patient Tobacco Use Status: Former Tobacco user Quit Date: 1978 Years Smoked: 10 Use of substances other than those prescribed or required for medical reasons: No Have you been hit, kicked, punched, or otherwise hurt by someone within the past year? If so, by whom?: No Are you DNR?: Yes Advance Directives: No Advance Directives Information Provided: Yes Advance Directives on File: No Recently lost weight without trying: No Eating poorly because of decreased appetite: No Nutrition Risks: No Nutritional Risk Current occupational status: employed 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, 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 Meds Allergies Allergy/AdvReac Type Severity Reaction Status Date / Time No Known Allergies Allergy Verified 05/23/23 09:55 Home Medications Medication Instructions Recorded Confirmed Last Taken Type alfuzosin 10 mg tablet,extended 10 mg PO BEDTIME 11/01/22 07/05/23 Unknown History release 24 hr diclofenac sodium 1 % topical gel 1 ea topical BID 11/01/22 07/04/23 Unknown History gabapentin 600 mg tablet 600 mg PO TID 11/01/22 07/04/23 07/13/23 History tadalafil 5 mg tablet 5 mg PO QAM 11/01/22 07/04/23 Unknown History tolterodine 4 mg capsule,extended 4 mg PO QAM 11/01/22 07/04/23 Unknown History release 24 hr oxybutynin chloride 10 mg 20 mg PO QAM 01/12/23 07/04/23 07/13/23 History tablet,extended release 24 hr fluocinonide 0.05 % topical cream 1 appl topical BID 01/31/23 07/04/23 Unknown History acetaminophen 650 mg 1,300 mg PO Q8H 07/04/23 07/04/23 Unknown History tablet,extended release meloxicam submicronized 10 mg 10 mg PO QAM 07/04/23 07/04/23 Unknown History capsule omeprazole 40 mg capsule,delayed 40 mg PO QAM 07/05/23 07/05/23 07/13/23 History release amoxicillin 500 mg capsule 2,000 mg PO DAILY 07/13/23 07/13/23 07/13/23 History Exam Exam Date and Time: July 13, 2023 1150 Height,Weight and Vital Signs: Height 6 ft Weight 122.47 kg Height 6 ft Weight 123.604 kg Vital Signs Temperature 97.9 F 07/13/23 11:32 Pulse Rate 72 07/13/23 11:32 Respiratory Rate 16 07/13/23 11:32 Blood Pressure 135/77 07/13/23 11:32 Pulse Oximetry 95 07/13/23 11:32 Oxygen Delivery Method Room Air 07/13/23 11:32 Temperature 97.9 F 07/13/23 11:32 Pulse Rate 72 07/13/23 11:32 Respiratory Rate 16 07/13/23 11:32 Blood Pressure 135/77 07/13/23 11:32 Pulse Oximetry 95 07/13/23 11:32 Oxygen Delivery Method Room Air 07/13/23 11:32 Airway Mallampati Class: I TM Dist: >3cm Neck ROM: Full Loose/Missing/Broken Teeth: Yes (edentulous) Heart: S1S2 Lungs: CTAB Assessment and Plan Assessment Anesthesia Assessment: Anesthesia Plan Discussed and Chart Reviewed Final Anesthetic Review Family History of Problems with Anesthesia: No History of Problems with Anesthesia: No NPO: Yes ASA Class: II Final Preanesthetic Review: No Changes in Pt Med Stat, Meds/Allgs Chart Reviewed, Consent Obtained/Reviewed, Anes Risks/Benef Reviewed and DNR Form (If Appl.) (DNR reversed for perioperative period. Will resume upon patient leaving PACU.) Patient Risk: Intermediate Procedure Risk: Intermediate Anesthetic Plan Anesthetic Plan: GA, Regional Block (right brachial plexus block) and Agree w/ Assess. and Plan Disposition: Standard PACU
--- NOTE | 2023-07-13 14:57 | P.BOP_ITS ---
Brief Operative Note Date of Service: 07/13/23 Pre-op diagnosis: Right shoulder impingement syndrome, right shoulder acromioclavicular joint arthritis, right shoulder adhesive capsulitis Post-op diagnosis: same Procedure: Right shoulder diagnostic arthroscopy with right shoulder arthroscopic distal clavicle excision, right shoulder arthroscopic acromioplasty, right shoulder arthroscopic anterior capsular release, right shoulder manipulation under anesthesia Implants: None Surgeon: Victorino De La Cruz MD Anesthesia: GETA and regional Was an Speed Belt Sander used for this Procedure?: No Estimated blood loss (mL): 15 Pathology: none sent Condition: stable Disposition: PACU
--- NOTE | 2023-07-13 14:58 | P.OP_ITS ---
Operative Note Operative Note Date of Service: 07/13/23 Narrative: After the patient was identified as Aris Hernandez and his right shoulder was initialed by myself the patient was brought to the holding area where a right shoulder interscalene regional block was performed by the anesthesiologist in routine fashion. The patient was then brought to the operating room where general anesthesia was induced by the anesthesiologist in routine fashion. The patient was given 2 g of IV Ancef preoperatively for infection prophylaxis. Examination under anesthesia of the patient's right shoulder showed decreased passive range of motion when compared to the left shoulder. The patient's right shoulder had passive forward flexion to 130 degrees compared to 170 degrees, external rotation to 30 degrees compared to 60 degrees, and internal rotation to 40 degrees compared to 50 degrees. The patient was gently positioned in the beach chair position with all bony prominences well padded. The patient's right shoulder region and upper extremity were prepped and draped in sterile fashion. A formal time-out was completed. A #11 scalpel blade was used to make a posterior portal 2 cm inferior and 1 cm medial to the posterolateral corner of the acromion. Blunt trocar technique was used to enter the glenohumeral joint in routine fashion. An anterior portal was made just lateral to the coracoid process after proper positioning was confirmed using a spinal needle. Diagnostic arthroscopy showed minimal degenerative changes of the glenoid and humeral head articular surfaces. There was no evidence of rotator cuff tearing. There was no evidence of injury to the biceps tendon or its insertion onto the glenoid. There was inflammation of the anterior joint capsule consistent with adhesive capsulitis. The ArthroCare Wand was then used to perform an anterior capsular release between the inferior border of the biceps tendon and the superior border of the subscapularis tendon. The arthroscope was then placed from the posterior portal into the subacromial space. A lateral portal was made 2 fingerbreadths lateral to the anterior lateral corner of the acromion. The ArthroCare Wand was used to ablate soft tissues along the undersurface of the acromion as well as to excise the coracoacromial ligament. There was a sharp spur along the undersurface of the acromion which was removed using the hooded bur. The arthroscope was then placed into the lateral portal and the acromi oplasty was completed with the bur in the posterior portal using the posterior aspect of the acromion as a cutting block. The ArthroCare Wand was then brought in through the anterior portal and was used to ablate soft tissues along the acromioclavicular joint and distal clavicle. The posterior and superior ligamentous structures were left intact. A distal clavicle excision of 4 mm was performed using the fluted bur. Any remaining bursal tissue was removed using the arthroscopic shaver. The subacromial space was irrigated and then drained. All arthroscopic instruments were removed. A gentle manipulation under anesthesia was then performed. Full passive range of motion was easily obtained. The 3 portals were closed with 3-0 nylon interrupted suture. The subacromial space was injected with Marcaine. Dry sterile dressing was placed over all incisions. The patient's right upper extremity was placed into a sling. The patient was awoken and extubated in the operating room. The patient was transferred to the recovery room in stable condition.
[2023-07-13] MEDS: cefTRIAXone sodium 1 GM in 0.9 % Sodium Chloride 50 ML IV (15:15)
== END 2023-07-13 15:48 | disposition home or self-care (01) ==
PROVIDERS: PCP Internal Medicine; Visit Provider Orthopaedic Surgery
PROC: (CPT 29805; principal; 2023-07-13 13:00)
DX: M75.41 Impingement syndrome of right shoulder (principal); M75.01 Adhesive capsulitis of right shoulder; M19.011 Primary osteoarthritis, right shoulder; R53.1 Weakness; D64.9 Anemia, unspecified; R73.03 Prediabetes; Z79.899 Other long term (current) drug therapy; Z98.890 Other specified postprocedural states; Z98.84 Bariatric surgery status; Z87.891 Personal history of nicotine dependence
CPT/HCPCS: 29825; 29822; 29826; J0171; J0690; J0696; J1100; J2250; J2405; J2704; J2795; J3010

== ENCOUNTER → 2023-07-13 10:43 | Outpatient (BNV) | payer OTHER, SELFPAY | PROVIDERS: PCP Internal Medicine; Visit Provider Orthopaedic Surgery | DX: M75.41 Impingement syndrome of right shoulder (principal); M19.011 Primary osteoarthritis, right shoulder; M75.01 Adhesive capsulitis of right shoulder | CPT/HCPCS: 29824; 29826 ==

== ENCOUNTER 2023-07-26 07:58 | Outpatient (AMB) | payer OTHER, SELFPAY ==
--- NOTE | 2023-07-26 08:00 | A.OFFVIS_ITS ---
Intake Intake Visit Reasons: PO-Rt Shld 07/13/23 DR Intake Note: Aris is a 68 year old Male who presents for a post operative appointment s/p Right shoulder on 07/13/2023. Patient reports he is having some pain but is getting better. He denies any fevers or chills. He continues his home stretching program. Allergies No Known Allergies Allergy (Verified 07/26/23 08:03) Medication List - Last Reconciled 07/26/23 by Victorino De La Cruz MD acetaminophen ER 1,300 mg PO Q8H alfuzosin ER 10 mg PO BEDTIME amoxicillin 2,000 mg PO DAILY amoxicillin 2,000 mg (4 x 500 mg) PO ONCE diclofenac sodium 1% 1 ea topical BID fluocinonide 0.05% 1 appl topical BID gabapentin 600 mg PO TID meloxicam submicronized 10 mg PO QAM omeprazole 40 mg PO QAM oxybutynin chloride ER 20 mg PO QAM oxycodone-acetaminophen 5-325 mg (Percocet) 2 tabs PO Q4H PRN tadalafil 5 mg PO QAM tolterodine ER 4 mg PO QAM PFSH Medical History Hematoma Pre-diabetes Hearing loss Diverticulosis Lumbar stenosis Syncope Osteoarthritis BPH (benign prostatic hyperplasia) Heart abnormality GERD (gastroesophageal reflux disease) Anemia Surgical History History of evacuation of hematoma History of ankle surgery Hx of excision of mass History of decompression of ulnar nerve History of surgery on wrist Hx of total knee replacement Hx of spinal surgery Hx of gastric bypass Hx of shoulder surgery Hx of neck surgery Hx of cataract surgery Hx of colonoscopy History of esophagogastroduodenoscopy (EGD) Family History Mother Intestinal cancer Social History Household Members: Spouse Are you a primary care coordination manager to a significant other at home: No Do you presently have visiting nurse or other home services: No Alcohol intake: current Alcohol intake frequency: a few times a week Patient Tobacco Use Status: Former Tobacco user Quit Date: 1978 Years Smoked: 10 Current occupational status: employed 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, 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 Physical Exam Extrem Other: Right shoulder examination shows that the surgical incisions are healing well, no erythema, mild discomfort with range of motion Assessment & Plan Assessment & Plan (1) Right shoulder pain: Code(s): M25.511 - Pain in right shoulder Plan: Mr. Hernandez is doing well after undergoing right shoulder arthroscopic surgery on 07/13/2023. His sutures were removed and Steri-Strips placed over his incisi ons. Will continue with his home stretching program. The do's and don'ts of lifting were discussed at length with the patient. I will clear him to return to work once his strength and discomfort have improved. He will contact me prior to his follow-up appointment in 6 weeks should any questions or concerns arise. Feel free to call me at any time should questions regarding his orthopedic management arise. Medications: Changed From oxycodone-acetaminophen 5-325 mg (Percocet) Partial Fill upon patient request. 2 tabs PO Q4H PRN 40 tabs 0RF pain To oxycodone-acetaminophen 5-325 mg (Percocet) Partial Fill upon patient request. 2 tabs PO Q6H PRN 40 tabs 0RF pain Coding Level of Care Code Global (85711) Diagnoses Right shoulder pain M25.511
== END 2023-07-26 08:15 | disposition home or self-care (01) ==
PROVIDERS: PCP Internal Medicine; Visit Provider Orthopaedic Surgery
DX: M25.511 Pain in right shoulder (principal)
CPT/HCPCS: 99024

== ENCOUNTER → 2023-07-26 07:58 | Outpatient (BNVA) | payer OTHER, SELFPAY | PROVIDERS: PCP Internal Medicine; Visit Provider Orthopaedic Surgery | DX: Z47.89 Encounter for other orthopedic aftercare (principal); M25.511 Pain in right shoulder; Z98.890 Other specified postprocedural states | CPT/HCPCS: 99212 ==

== ENCOUNTER 2023-08-13 14:34 | Outpatient (REF) | payer OTHER, SELFPAY ==
[2023-08-13 15:12] LABS: Hematocrit 39.6 % (42.0-52.0); Hemoglobin 13.7 g/dl (14.0-18.0); Mean Corpuscular HGB Conc 34.6 g/dl (31.0-36.0); Mean Corpuscular Hemoglobin 31.6 pg (27.0-33.0); Mean Corpuscular Volume 91.5 fL (80.0-98.0); Mean Platelet Volume 9.9 fL (9.4-12.4); Platelet Count 182 X10*3/uL (160-400); Red Blood Count 4.33 X10*6/uL (4.60-5.80); White Blood Count 10.2 X10*3/uL (4.8-10.8)
[2023-08-13 16:11] LABS: Ferritin 331 ng/mL (20-250)
== END 2023-08-13 14:35 | disposition home or self-care (01) ==
LOC: HO.LAB 14:34
PROVIDERS: PCP Internal Medicine; Visit Provider Internal Medicine
DX: D64.9 Anemia, unspecified (principal)
CPT/HCPCS: 36415; 82728; 85027

== ENCOUNTER 2023-08-15 14:03 | Outpatient (AMB) | payer OTHER, SELFPAY ==
--- NOTE | 2023-08-15 14:16 | MHC.OFFVIS ---
Intake Vital Signs 08/15/23 14:17 Height 6 ft Weight 341 lb 11.464 oz BMI 46.3 BP 127/71 Blood Pressure Location Lt brachial Position Sitting Pulse 85 Intake Visit Reasons: Follow Up Anemia Intake Note: Aris presents in the office as a follow up for anemia. CC: He has been dealing with some purging and he hopes it did not effect his esophagus. 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 11/01/22: Pt reports he first noticed black stools 1.5y ago and now becoming more frequent. Last black BM was today. Stools are loose. Reports nausea and frequent burping with this. No change in appetite, has been gaining weight in fact. USed to take meloxicam BID but stopped it a few months ago due to black stools. Had blood work done just today at [place], but we do not records for these. Does not recall if he has anemia but likely did have iron deficiency at some point as reports being on iron supplements for 2-3 years now. Last colo was 3 years ago done at [facility], no polyps but was told to return in 5 years due to fam hx of CRC in mother. 12/21/22: Impression: 1. Normal esophageal mucosa 2. Oscar erosions 3. Hiatal hernia 4. Gastrojejunal bypass (biopsy) 5. Normal jejunal mucosa (biopsy) 6. Normal colon and terminal ileum mucosa 7. Diverticulosis 8. Internal and external hemorrhoids Recommendations:?? Anemia and melena likely 2/2 spontaneously oozing Oscar erosions. Continue PPI therapy Avoid NSAIDs Follow path results Repeat colonoscopy in 5 years due to fam hx of CRC? Path: A.? Jejunum, biopsy:? Small intestinal mucosa with patchy hemosiderin deposition; otherwise within normal limits. B.? Blind limb, biopsy:? Small intestinal mucosa with patchy hemosiderin deposition and reactive appearing lymphoid aggregates; otherwise within normal limits. C.? Stomach, biopsy:? Oxyntic mucosa with mild chronic inactive inflammation; no Helicobacter organisms seen. 01/12/23: Had ??hives after increasing omeprazole to BID so has now switched to taking omeprazole 20 in AM and pepcid 20 in PM. Continues to notice black stools occasionally but also remains on iron supplements. Otherwise no abd pain, N,V. 04/09/23: Here for follow up - had blood work done through his PCP in Feb which shows H/H stable. No iron studies available. Pt himself reports no abd pain, melena has resolved. Continues to take omeprazole 20mg in AM and famotidine 20mg in PM however did NOT go back on iron supplements as previously discussed. 08/15/23: Here for follow-up. Reports no acute gastrointestinal issues. Pepcid was discontinued after the last visit. Anemia and iron studies were stable last time, and patient did not need to resume p.o. iron supplements. Currently, does not report any abdominal pain, nausea, vomiting, change in appetite or melena. On PPI once daily. [facility] Medical History Hematoma Pre-diabetes Hearing loss Diverticulosis Lumbar stenosis Syncope Osteoarthritis BPH (benign prostatic hyperplasia) Heart abnormality GERD (gastroesophageal reflux disease) Anemia Surgical History History of evacuation of hematoma History of ankle surgery Hx of excision of mass History of decompression of ulnar nerve History of surgery on wrist Hx of total knee replacement Hx of spinal surgery Hx of gastric bypass Hx of shoulder surgery Hx of neck surgery Hx of cataract surgery Hx of colonoscopy History of esophagogastroduodenoscopy (EGD) Family History Mother Intestinal cancer Social History Household Members: Spouse Are you a primary post acute care nurse to a significant other at home: No Do you presently have visiting nurse or other home services: No Alcohol intake: current Alcohol intake frequency: a few times a week Patient Tobacco Use Status: Former Tobacco user Quit Date: 1978 Years Smoked: 10 Current occupational status: employed 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, 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 Review of Systems Const All systems reviewed & are unremarkable except as noted in HPI and below Physical Exam Vital Signs: Last Vital Signs Pulse 85 08/15/23 14:17 BP 127/71 08/15/23 14:17 BMI result Body Mass Index 46.3 NAD Nonicteric No overt respiratory distress Abdomen soft, nontender No peripheral edema Assessment & Plan Assessment & Plan (1) Anemia: Code(s): D64.9 - Anemia, unspecified (2) Melena: Code(s): K92.1 - Melena (3) Hx of gastric bypass: Code(s): Z98.84 - Bariatric surgery status Plan Anemia has stabilised and melena resolved with antisecretory therapy. Reviewed with the pt that hemoglobin is mildly below normal limit but not due to iron deficiency, and can consider hematology referral for further evaluation at time. However, patient would like to hold off at this time, and revisit at next visit after getting another set of labs. Plan: - check CBC, iron studies and B12 and folate in 6 months - if remains with normocytic anemia without any nutritional deficiencies, we will consider hematology referral Follow-up in 6 months Orders: Orders Complete Blood Count no Diff 6 Months D64.9 - Anemia, unspecified Ferritin 6 Months D64.9 - Anemia, unspecified IRON PROFILE 6 Months D64.9 - Anemia, unspecified Vitamin B12 and Folate 6 Months D64.9 - Anemia, unspecified Coding Level of Care Code Est Pt Level 3 (42529) Diagnoses Anemia D64.9 Melena K92.1 Hx of gastric bypass Z98.84
[2023-08-15 14:17] VITALS: BP 127/71; PULSE 85; BMI 46.3
== END 2023-08-15 15:47 | disposition home or self-care (01) ==
PROVIDERS: PCP Internal Medicine; Visit Provider Internal Medicine
DX: D64.9 Anemia, unspecified (principal); K92.1 Melena; Z98.84 Bariatric surgery status
CPT/HCPCS: 99213

== ENCOUNTER → 2023-08-15 14:03 | Outpatient (BNVA) | payer OTHER, SELFPAY | PROVIDERS: PCP Internal Medicine; Visit Provider Internal Medicine | DX: D64.9 Anemia, unspecified (principal); K92.1 Melena; Z98.84 Bariatric surgery status | CPT/HCPCS: 99212 ==

== ENCOUNTER 2023-08-23 10:35 | Outpatient (AMB) | payer OTHER, SELFPAY ==
[2023-08-23 10:37] VITALS: BMI 46.3
--- NOTE | 2023-08-23 10:37 | MHC.OFFVIS ---
Intake Vital Signs 08/23/23 10:37 Height 6 ft Weight 341 lb 11 oz BMI 46.3 Intake Visit Reasons: PO-Rt Shld 07/13/23 DR Intake Note: Aris is a 68 year old Right hand dominate male who presents with complaints of mild discomfort in his right shoulder after undergoing right shoulder arthroscopic surgery on 07/13/2023. Continues with his home stretching program. He does not take any medicines for his discomfort. He would like to return to work. Allergies No Known Allergies Allergy (Verified 08/23/23 10:40) Medication List - Last Reconciled 08/23/23 by Victorino De La Cruz MD acetaminophen ER 1,300 mg PO Q8H alfuzosin ER 10 mg PO BEDTIME amoxicillin 2,000 mg PO DAILY amoxicillin 2,000 mg (4 x 500 mg) PO ONCE aspirin mg PO diclofenac sodium 1% 1 ea topical BID fluocinonide 0.05% 1 appl topical BID gabapentin 600 mg PO TID meloxicam submicronized 10 mg PO QAM omeprazole 40 mg PO QAM oxybutynin chloride ER 20 mg PO QAM oxycodone-acetaminophen 5-325 mg (Percocet) 2 tabs PO Q6H PRN tadalafil 5 mg PO QAM tolterodine ER 4 mg PO QAM PFSH Medical History Hematoma Pre-diabetes Hearing loss Diverticulosis Lumbar stenosis Syncope Osteoarthritis BPH (benign prostatic hyperplasia) Heart abnormality GERD (gastroesophageal reflux disease) Anemia Surgical History History of evacuation of hematoma History of ankle surgery Hx of excision of mass History of decompression of ulnar nerve History of surgery on wrist Hx of total knee replacement Hx of spinal surgery Hx of gastric bypass Hx of shoulder surgery Hx of neck surgery Hx of cataract surgery Hx of colonoscopy History of esophagogastroduodenoscopy (EGD) Family History Mother Intestinal cancer Social History Household Members: Spouse Are you a primary residential care officer to a significant other at home: No Do you presently have visiting nurse or other home services: No Alcohol intake: current Alcohol intake frequency: a few times a week Patient Tobacco Use Status: Former Tobacco user Quit Date: 1978 Years Smoked: 10 Current occupational status: employed 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, 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 Physical Exam Vital Signs: BMI result Body Mass Index 46.3 Extrem Other: Right shoulder examination shows that the surgical incisions are well healed, no erythema, full range of motion when compared to his left shoulder, 4+ out of 5 strength with supraspinatus testing, minimal discomfort with resisted forward flexion, no discomfort with resisted internal or external rotation Assessment & Plan Assessment & Plan (1) Right shoulder pain: Code(s): M25.511 - Pain in right shoulder Plan Mr. Hernandez continues to do well after undergoing right shoulder arthroscopic surgery on 07/13/2023. He will continue with his range of motion exercises to prevent stiffness. The do's and don'ts of lifting were discussed at length with the patient. I did clear him to return to work. He will contact me prior to his follow-up appointment in 2-3 months should any questions or concerns arise. Feel free to call me at any time should questions regarding his orthopedic management arise. Coding Level of Care Code Global (17788) Diagnoses Right shoulder pain M25.511
== END 2023-08-23 10:58 | disposition home or self-care (01) ==
PROVIDERS: PCP Internal Medicine; Visit Provider Orthopaedic Surgery
DX: M25.511 Pain in right shoulder (principal)
CPT/HCPCS: 99024

== ENCOUNTER → 2023-08-23 10:35 | Outpatient (BNVA) | payer OTHER, SELFPAY | PROVIDERS: PCP Internal Medicine; Visit Provider Orthopaedic Surgery | DX: M25.511 Pain in right shoulder (principal) | CPT/HCPCS: 99212 ==

== ENCOUNTER 2023-10-16 10:17 | Outpatient (AMB) | payer OTHER, SELFPAY ==
[2023-10-16 10:19] VITALS: BP 110/70; PULSE 66; TEMP 36.5; O2SAT 95; BMI 37.2
--- NOTE | 2023-10-16 10:19 | MHC.OFFWIV ---
Intake Vital Signs 10/16/23 10:19 Height 6 ft Weight 274 lb BMI 37.2 BP 110/70 Blood Pressure Location Lt brachial Position Sitting Pulse 66 Pulse Source Pulse Oximeter Temp 97.7 F Temp Source Temporal Artery Scan Pulse Oximetry (%) 95 Oxygen Delivery Method Room Air Intake Visit Reasons: EST/fell/ lacerations to face, arms(lobby) Intake Note: pt is her today for fell lacerations to face started sunday Patient Tobacco Use Status: Former Tobacco user Quit Date: 1978 Allergies No Known Allergies Allergy (Verified 10/16/23 10:56) Medication List - Last Reconciled 10/16/23 by Stefan Barber, DEVIN acetaminophen ER 1,300 mg PO Q8H alfuzosin ER 10 mg PO BEDTIME aspirin mg PO diclofenac sodium 1% 1 ea topical BID doxycycline hyclate 100 mg PO BID fluocinonide 0.05% 1 appl topical BID gabapentin 600 mg PO TID meloxicam submicronized 10 mg PO QAM omeprazole 40 mg PO QAM oxybutynin chloride ER 20 mg PO QAM oxycodone-acetaminophen 5-325 mg (Percocet) 2 tabs PO Q6H PRN tadalafil 5 mg PO QAM tolterodine ER 4 mg PO QAM Do you need a note to return to daycare/school/sports/work: Yes HPI HPI Comments History of Present Illness Details Patient is a 68-year-old male in today for sick visit. Patient had fall 5 days prior to the appointment after slipping and falling on the cement. Patient was taken to [facility] emergency room where he was evaluated and discharged. Patient has bilateral broken pinky fingers, and lacerations to the forehead and nose. Patient has already been offered referral from [place] emergency room to plastic surgery for small laceration on forehead he has declined. Today he reports that when he was switching his bandage he noticed that the wound had drainage that was mostly clear however some of it was tented yellow. He denies any fevers or chills. Denies increase in pain. Patient's tetanus status is up-to-date. Patient utilize acetaminophen with [id number] relief. On physical exam patient has abrasion to forehead and nose. Patient has bandage over both the areas. When removed there is scant drainage mostly clear. Scant erythema around abrasion borders. Good granulation tissue. No scabbing. [facility]LY [facility] Medical History Hematoma Pre-diabetes Hearing loss Diverticulosis Lumbar stenosis Syncope Osteoarthritis BPH (benign prostatic hyperplasia) Heart abnormality GERD (gastroesophageal reflux disease) Anemia Surgical History History of evacuation of hematoma History of ankle surgery Hx of excision of mass History of decompression of ulnar nerve History of surgery on wrist Hx of total knee replacement Hx of spinal surgery Hx of gastric bypass Hx of shoulder surgery Hx of neck surgery Hx of cataract surgery Hx of colonoscopy History of esophagogastroduodenoscopy (EGD) Family History Mother Intestinal cancer Social History Household Members: Spouse Are you a primary director long term care to a significant other at home: No Do you presently have visiting nurse or other home services: No Alcohol intake: current Alcohol intake frequency: a few times a week Patient Tobacco Use Status: Former Tobacco user Quit Date: 1978 Smoked: 10 Current occupational status: employed 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, 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 Review of Systems Const All systems reviewed & are unremarkable except as noted in HPI and below Physical Exam Vital Signs: Last Vital Signs Temp 97.7 F 10/16/23 10:19 Pulse 66 10/16/23 10:19 BP 110/70 10/16/23 10:19 Pulse Ox 95 10/16/23 10:19 Oxygen Delivery Method Room Air 10/16/23 10:19 BMI result Body Mass Index 37.2 Const General: cooperative Orientation/consciousness: patient oriented x3 Limitations: no limitations HEENT Head: Yes normal to inspection Eyes General: appearance normal, both eyes and all related structures Pupils: Equal, round and reactive pupils present Resp Effort & Inspection: normal respiratory effort Skin Trauma: abrasion (Forehead and tip of nose. Scant erythema around borders. Clear drainage.) Neuro General: patient oriented x3 and CN's II-XI intact bilaterally Cranial nerves: Yes Equal, round and reactive pupils present Cognition (Neuro): normal cognition Gait exam (Neuro): Normal gait present Comatose Patient: corneal reflex present Assessment & Plan Assessment & Plan (1) Skin infection: Comment: Will give patient doxycycline. Patient has been educated the side effects of these medications. Patient has been educated on signs of worsening symptoms when to report back to the office or when to present to the ED Code(s): L08.9 - Local infection of the skin and subcutaneous tissue, unspecified Plan: Take your medications as prescribed. If you were prescribed antibiotics today, it is important that you take your medication to their entirety, do not skip any doses, do not finish them early. Follow-up with your primary care provider this week. Return to the emergency department with new or worsening symptoms. Such as fevers, chills, chest pain, shortness of breath, nausea, vomiting, dizziness, headache, vision changes, lethargy In case of emergency call 911 Plan follow up with PCP. Medications: New doxycycline hyclate 100 mg PO BID 14 tabs 0RF Coding Level of Care Code Est Pt Level 3 (20038) Diagnoses Skin infection L08.9 Time Spent (min) 28
== END 2023-10-16 11:04 | disposition home or self-care (01) ==
PROVIDERS: PCP Internal Medicine; Visit Provider Nurse Practitioner Primary Care
DX: L08.9 Local infection of the skin and subcutaneous tissue, unspecified (principal)
CPT/HCPCS: 99213

== ENCOUNTER 2023-11-13 11:13 | Outpatient (AMB) | payer OTHER, SELFPAY ==
[2023-11-13 11:16] VITALS: BMI 37.2
--- NOTE | 2023-11-13 11:16 | MHC.OFFVIS ---
Vital Signs 11/13/23 11:16 Height 6 ft Weight 274 lb BMI 37.2 Intake Visit Reasons: ov-Rt Shld 07/13/23 DR Intake Note: Aris is a 68 year old Right hand dominate male who presents with complaints of progressively worsening right shoulder pain and weakness after falling onto his bilateral upper extremities on 10/12/2023. The patient did undergo right shoulder arthroscopic surgery on 07/13/2023. States that he was doing well up until his fall. States that he fell while walking at work when a curb ?crumbled? below him. He subsequently underwent surgery for a left hand fracture. States that he also suffered a fracture to his right wrist which is being treated non operatively. The patient reports weakness when lifting his right hand above shoulder height. He did not have this weakness prior to his fall. He has tried Tylenol and anti-inflammatory medicines which gave him only mild relief. Allergies No Known Allergies Allergy (Verified 11/13/23 11:17) [facility] Medical History Hematoma Pre-diabetes Hearing loss Diverticulosis Lumbar stenosis Syncope Osteoarthritis BPH (benign prostatic hyperplasia) Heart abnormality GERD (gastroesophageal reflux disease) Anemia Surgical History History of evacuation of hematoma History of ankle surgery Hx of excision of mass History of decompression of ulnar nerve History of surgery on wrist Hx of total knee replacement Hx of spinal surgery Hx of gastric bypass Hx of shoulder surgery Hx of neck surgery Hx of cataract surgery Hx of colonoscopy History of esophagogastroduodenoscopy (EGD) Family History Mother Intestinal cancer Social History Household Members: Spouse Are you a primary occasional caregiver to a significant other at home: No Do you presently have visiting nurse or other home services: No Alcohol intake: current Alcohol intake frequency: a few times a week Patient Tobacco Use Status: Former Tobacco user Years Smoked: 10 Current occupational status: employed 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[employer], 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 Physical Exam Vital Signs: BMI result Body Mass Index 37.2 Const Other: Well-nourished well-developed very friendly male awake alert and oriented x3 in no acute distress Extrem Other: Bilateral upper extremity examination shows good capillary refill, no skin lesions noted, normal sensation light touch Right shoulder examination shows that the surgical incisions are well healed, no erythema, decreased active range of motion when compared to his left shoulder, 4/5 strength with supraspinatus testing, positive impingement signs, no instability Assessment & Plan Assessment & Plan (1) Right shoulder pain: Code(s): M25.511 - Pain in right shoulder Category: Medical Plan Mr. Hernandez presents with right shoulder pain and weakness possibly due to a full-thickness rotator cuff tear after falling onto his arms on 10/12/2023. Thus, I will arrange for the patient to have an MRI of his right shoulder for further evaluation once the surgical pins have been removed from his left hand. I will see him back once the MRI is completed to discuss the findings and treatment options. Feel free to call me at any time should questions regarding his orthopedic management arise. I spent 21 minutes in reviewing the patient's records and imaging studies, seeing the patient and documenting in the medical record. Coding Level of Care Code Est Pt Level 3 (75917) Diagnoses Right shoulder pain M25.511
== END 2023-11-13 11:30 | disposition home or self-care (01) ==
PROVIDERS: PCP Internal Medicine; Visit Provider Orthopaedic Surgery
DX: M25.511 Pain in right shoulder (principal)
CPT/HCPCS: 99213

== ENCOUNTER → 2023-11-13 11:13 | Outpatient (BNVA) | payer OTHER, SELFPAY | PROVIDERS: PCP Internal Medicine; Visit Provider Orthopaedic Surgery | DX: M25.511 Pain in right shoulder (principal) | CPT/HCPCS: 99212 ==

== ENCOUNTER 2024-01-16 13:17 | Outpatient (AMB) | payer OTHER, SELFPAY ==
--- NOTE | 2024-01-16 13:33 | MHC.PC.OV ---
Vital Signs 01/16/24 13:52 Height 6 ft Weight 276 lb BMI 37.4 BP 108/66 Blood Pressure Location Rt brachial Position Sitting Pulse 70 Pulse Source Pulse Oximeter Pulse Oximetry (%) 97 Oxygen Delivery Method Room Air Intake Visit Reasons: New pt PE Intake Note: Pt kis here today for New patient visit PE. Allergies No Known Allergies Allergy (Verified 01/16/24 13:56) Medication List - Last Reconciled 01/16/24 by Sandy Lemos MD acetaminophen ER 1,300 mg PO Q8H alfuzosin ER 10 mg PO BEDTIME amoxicillin 2,000 mg (4 x 500 mg) PO ONCE aspirin mg PO buprenorphine 10 mcg/hour 1 patch transdermal QWEEK diclofenac sodium 1% 1 ea topical BID fluocinonide 0.05% 1 appl topical BID meloxicam submicronized 10 mg PO QAM omeprazole 40 mg PO QAM oxybutynin chloride ER 20 mg PO QAM pregabalin 300 mg PO BID tadalafil 5 mg PO QAM tolterodine ER 4 mg PO QAM Tobacco use date assessed: 01/16/24 Fall risk assessment: 1 Fall in past year Last assessed Fall Risk: 01/16/24 Dental Screening Dental Screen Date: 01/16/24 Did you have a dental visit in the last 12 months?: Yes Did you have a dental problem in the last 6 months where you did not have access to dental care?: No Was dental information given to patient?: Patient has dentist HPI New pt PE HPI Details Pt presents for PE. Past medical history includes chronic BPH follows up with urologist, chronic lower back pain due to spinal stenosis being treated by pain management at [facility]. Patient fell at work in September and sustained left hand fracture and underwent surgery in [place] as a workman's comp case. Patient also injured his right shoulder during the fall will have R shoulder MRI and will follow-up with Dr. De La Cruz. [facility] Medical History Hematoma Pre-diabetes Hearing loss Diverticulosis Lumbar stenosis Syncope Osteoarthritis BPH (benign prostatic hyperplasia) Heart abnormality GERD (gastroesophageal reflux disease) Anemia Surgical History History of evacuation of hematoma History of ankle surgery Hx of excision of mass History of decompression of ulnar nerve History of surgery on wrist Hx of total knee replacement Hx of spinal surgery Hx of gastric bypass Hx of shoulder surgery Hx of neck surgery Hx of cataract surgery Hx of colonoscopy History of esophagogastroduodenoscopy (EGD) Family History (Updated 01/16/24 @ 14:02 by JOCELYNE Lora) Mother Intestinal cancer Sister Substance use disorder Social History (Updated 01/16/24 @ 15:11 by Sandy Lemos MD) Household Members: Spouse 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:: , 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 1. Little interest or pleasure in doing things: not at all 2. Feeling down, depressed, or hopeless: not at all 3. Trouble falling or staying asleep, or sleeping too much: not at all 4. Feeling tired or having little energy: not at all 5. Poor appetite or overeating: not at all 6. Feeling bad about yourself - or that you are a failure or have let yourself or your family down: not at all 7. Trouble concentrating on things, such as reading the newspaper or watching television: not at all 8. Moving or speaking so slowly that other people could have noticed. Or the opposite - being so fidgety or restless that you have been moving around a lot more than usual: not at all 9. Thoughts that you would be better off or of hurting yourself in some way: not at all Total score: 0 Depression Screening Interpretation: Negative Depression Screening Done: Yes 29221 - PHQ-9 Billing: Yes Source: Developed by Drs. Andrea Doherty, Opal Jaimes, Edgardo Szymanski and colleagues, with an educational savannah from [employer]. Thrive Questionnaire Date Thrive assessed: 01/16/24 I am a: Patient What is your living situation today?: I have a steady place to live Within the past 12 months, did the food you bought not last and you didn't have the money to get more?: Never true Within the past 12 months, did you worry whether your food would run out before you got money to buy more?: Never true Do you have trouble paying for medicines?: No Do you have trouble getting transportation to medical appointments?: No Do you have trouble paying your heating and electricity bill?: No Do you have trouble taking care of your child, family member or friend?: No Do you have trouble with day-to-day activities such as bathing, preparing meals, shopping, managing finances, etc.?: No Are you currently unemployed and looking for a job?: No Are you interested in more education?: No Please select the resources that you would like help with: None Currently or been in a relationship where the following occur: No concerns reported THRIVE Score: 0 AUDIT C Alcohol Use Questionnaire (AUDIT-C) 1. How often do you have a drink containing alcohol?: 2-3 times a week 2. How many drinks containing alcohol do you have on a typical day when you are drinking?: 3 or 4 3. How often do you have six or more drinks on one occasion?: Less than monthly Total Score: 5 AMINAH-7 AMB Questionnaire AMINAH-7 Date AMINAH - 7 assessed: 01/16/24 Feeling nervous, anxious, or on edge: 0 = Not at all Not being able to stop or control worryin = Not at all Worrying too much about different things: 0 = Not at all Trouble relaxin = Not at all Being so restless that it is hard to sit still: 0 = Not at all Becoming easily annoyed or irritable: 0 = Not at all Feeling afraid as if something awful might happen: 0 = Not at all Total AMINAH-7 score (0-4 normal; 5-9 mild; 10-14 moderate; 15-21 severe): 0 Source: Developed by Drs. Andrea Doherty, Opal Jaimes, Edgardo Szymanski and colleagues, with an educational savannah from [employer] AMINAH-7 Assessment Billing AMINAH-7 Assessment Tool: AMINAH-7 Assessment 15716 Review of Systems Const All systems reviewed & are unremarkable except as noted in HPI and below Reports no additional complaints Eyes Reports no additional complaints ENT Reports no additional complaints Card Reports no additional complaints Resp Reports no additional complaints GI Reports no additional complaints Reports no additional complaints Musc Reports no additional complaints Physical exam (Primary Care) Vital Signs: Last Vital Signs Pulse 70 01/16/24 13:52 BP 108/66 01/16/24 13:52 Pulse Ox 97 01/16/24 13:52 Oxygen Delivery Method Room Air 01/16/24 13:52 BMI result Body Mass Index 37.4 Tobacco/Smoking Status: Tobacco use Status Tobacco use date assessed 01/16/24 01/16/24 14:03 Patient Tobacco Use Status Former Tobacco user 01/16/24 13:36 e-Cigarette/Vaping Use Never Used 01/16/24 14:03 PHQ-9: PHQ-9 Score PHQ-9: Total score 0 01/16/24 13:36 Depression Screening Interpretation: Negative Thrive Assessment: Date of Thrive Assessment Date Thrive assessed 01/16/24 01/16/24 13:36 Currently or been in a relationship where the following occur: No concerns reported Const General: no acute distress HENMT Ears: hearing grossly normal bilaterally Eyes General: appearance normal, both eyes and all related structures Resp Effort & Inspection: normal respiratory effort Auscultation: clear to auscultation bilaterally Cardio Rhythm: abnormal rhythm with ectopic beats Heart sounds: S1 normal heart sound present and S2 normal heart sound present GI Inspection: Yes normal to inspection Palpation (GI): Soft to palpation Percussion: Yes normal to percussion Auscultation: normal bowel sounds Extrem Other: 2+ pitting edema bilaterally Assessment and Plan Assessment & Plan (1) Lumbar stenosis: Comment: s/p 2 surgeries, 2017, Dr. Patel[facility] B[facility] Code(s): M48.061 - Spinal stenosis, lumbar region without neurogenic claudication Plan: [facility] (2) Anemia: Code(s): D64.9 - Anemia, unspecified Plan: Check CBC and iron studies (3) Dysplastic nevi: Code(s): D23.9 - Other benign neoplasm of skin, unspecified Plan: Follow-up with dermatology (4) BPH (benign prostatic hyperplasia): Comment: f/u urology PVU Code(s): N40.0 - Benign prostatic hyperplasia without lower urinary tract symptoms Plan: Follow-up with urology (5) Obesity: Code(s): E66.9 - Obesity, unspecified Plan: Increase physical activity decrease caloric intake and weight loss discussed with the patient. (6) Annual physical exam: Code(s): Z00.00 - Encounter for general adult medical examination without abnormal findings Plan: Patient is up-to-date with colonoscopy. EKG showed sinus rhythm with frequent PACs no ST-T changes. Patient had a Holter and echocardiogram at [facility] about a year ago and results will be obtained Orders: Orders Complete Blood Count Auto Diff Today D64.9 - Anemia, unspecified, Z00.00 - Encounter for general adult medical examination without abnormal findings Lipid Panel Today D64.9 - Anemia, unspecified, Z00.00 - Encounter for general adult medical examination without abnormal findings Comprehensive [place]. Panel Fast Today D64.9 - Anemia, unspecified, Z00.00 - Encounter for general adult medical examination without abnormal findings Hemoglobin A1c Today D64.9 - Anemia, unspecified, Z00.00 - Encounter for general adult medical examination without abnormal findings IRON PROFILE Today D64.9 - Anemia, unspecified, Z00.00 - Encounter for general adult medical examination without abnormal findings UA CC w/rflx Micro + Cult Today D64.9 - Anemia, unspecified, Z00.00 - Encounter for general adult medical examination without abnormal findings Referrals Dermatology Referral D23.9 - Other benign neoplasm of skin, unspecified Urology Referral N40.0 - Benign prostatic hyperplasia without lower urinary tract symptoms Coding Level of Care Code New Pt Prev Care >65yr (94516) Diagnoses Lumbar stenosis M48.061 Anemia D64.9 Dysplastic nevi D23.9 BPH (benign prostatic hyperplasia) N40.0 Obesity E66.9 Annual physical exam Z00.00 Additional Codes AMINAH-7 Assessment Billing - AMINAH-7 Assessment Tool: AMINAH-7 Assessment 20862 ([id number])
[2024-01-16 13:52] VITALS: BP 108/66; PULSE 70; O2SAT 97; BMI 37.4
== END 2024-01-16 15:22 | disposition home or self-care (01) ==
PROVIDERS: PCP Internal Medicine; Visit Provider Internal Medicine
DX: Z00.00 Encounter for general adult medical examination without abnormal findings (principal); M48.061 Spinal stenosis, lumbar region without neurogenic claudication; E66.9 Obesity, unspecified; Z68.37 Body mass index [BMI] 37.0-37.9, adult; D64.9 Anemia, unspecified; D23.9 Other benign neoplasm of skin, unspecified; N40.0 Benign prostatic hyperplasia without lower urinary tract symptoms
CPT/HCPCS: 99397

== ENCOUNTER 2024-02-06 07:02 | Outpatient (REF) | payer OTHER, SELFPAY ==
[2024-02-06 10:00] LABS: Basophils Percent Auto 0.3 % (0-2); Eosinophils Absolute Auto 0.2 X10*3/uL (0.0-0.4); Eosinophils Percent Auto 2.4 % (0-4); Hematocrit 40.5 % (42.0-52.0); Hemoglobin 13.9 g/dl (14.0-18.0); Imm Gran Abs Auto 0.03 X10*3/uL (0.00-0.03); Imm Gran Pct Auto 0.5 % (0.0-0.4); Lymphocytes Absolute Auto 1.1 X10*3/uL (1.2-4.9); Lymphocytes Percent Auto 16.5 % (20-40); MANUAL DIFF FLAG NO; Mean Corpuscular HGB Conc 34.3 g/dl (31.0-36.0); Mean Corpuscular Hemoglobin 30.8 pg (27.0-33.0); Mean Corpuscular Volume 89.6 fL (80.0-98.0); Mean Platelet Volume 10.8 fL (9.4-12.4); Monocytes Absolute Auto 0.6 X10*3/uL (0.1-1.2); Monocytes Percent Auto 9.1 % (2-11); Neutrophils Absolute Auto 4.7 x10*3/uL (2.0-8.3); Neutrophils Percent Auto 71.2 % (45-73); Platelet Count 150 X10*3/uL (160-400); Red Blood Count 4.52 X10*6/uL (4.60-5.80); Red Cell Distribution Width 12.7 % (11.0-16.0); White Blood Count 6.6 X10*3/uL (4.8-10.8)
[2024-02-06 10:25] LABS: Alanine Aminotransferase 13 U/L (0-40); Albumin Level 4.1 g/dL (3.5-5.0); Alkaline Phosphatase 71 U/L (39-117); Aspartate Amino Transferase 16 U/L (5-37); Bilirubin Total 0.7 mg/dL (0.0-1.0); Blood Urea Nitrogen 10 mg/dL (9-16); Calcium 9.4 mg/dL (8.4-10.2); Carbon Dioxide 29 mmol/L (22-29); Chloride 105 mmol/L (96-108); Cholesterol 177 mg/dL (<200); Estimated Glomerular Filt Rate > 60; Glucose Fasting 107 mg/dL (60-99); HDL Cholesterol 59 mg/dL (>40); Iron 101 mcg/dL (45-160); LDL Cholesterol Calculated 100 mg/dL (<100); Percent Iron Saturation 43 % (15-50); Potassium 4.1 mmol/L (3.3-5.1); Sodium 141 mmol/L (135-145); Total Iron Binding Capacity 234 mcg/dL (228-428); Triglycerides 91 mg/dL (<150); Unsaturated Iron Binding 133 ug/dL
[2024-02-06 10:40] LABS: Appearance Urine Clear; Color Urine Yellow; Glucose Urine UA Negative (Negative); Leukocyte Esterase Urine Negative (Negative); Nitrite Urine Negative (Negative); PH 6.5 (5.0-9.0); Urine Blood Negative (Negative); Urine Ketones Negative (Negative); Urine Protein Negative (Neg-Trace)
[2024-02-06 10:42] LABS: Ferritin 343 ng/mL (20-250)
[2024-02-06 10:53] LABS: Folate 7.2 ng/mL (> or = 4.0); Vitamin B12 215 pg/mL (200-900)
[2024-02-06 10:59] LABS: Estimated Average Glucose 117 mg/dL; Hemoglobin A1c % 5.7 % (<6.0)
[2024-02-06 13:07] LABS: Anion Gap 13 (12-20)
== END 2024-02-06 07:03 | disposition home or self-care (01) ==
LOC: HO.HMGCLDS 07:02
PROVIDERS: PCP Internal Medicine; Referring Provider Internal Medicine; Visit Provider Internal Medicine
DX: Z00.00 Encounter for general adult medical examination without abnormal findings (principal); D64.9 Anemia, unspecified; Z13.1 Encounter for screening for diabetes mellitus
CPT/HCPCS: 36415; 80053; 80061; 81003; 82607; 82728; 82746; 83036; 83540; 85025

== ENCOUNTER 2024-02-15 10:25 | Outpatient (REF) | payer OTHER, SELFPAY ==
--- NOTE | ~2024-02-15 | MR_ITS ---
EXAMINATION: MR SHOULDER WITHOUT CONTRAST, RIGHT CLINICAL INFORMATION: Right shoulder pain and stiffness. Multiple prior surgeries. COMPARISON: Right shoulder MRI dated 05/19/2023. TECHNIQUE: MRI of the shoulder without contrast was performed on a high-field scanner. FINDINGS: Evaluation is somewhat limited secondary to patient motion. ROTATOR CUFF: Moderate supraspinatus tendinosis with irregular focal full-thickness partial tearing measuring approximately 0.8 x 1.5 cm (AP x ML), new/increased when compared to the prior examination. Mild infraspinatus tendinosis has slightly increased. Subscapularis tendinosis with distal articular surface fraying/partial tearing measuring up to 2.3 cm, similar when compared to the prior examination. No muscle atrophy or fatty infiltration. BICEPS: Interval absence/attenuation of the proximal long head biceps tendon which could represent increased tearing versus tenodesis. Correlate with surgical history. CORACOACROMIAL ARCH: The undersurface of the acromion is attenuated, consistent with acromioplasty. Distal clavicular resection. LABRUM/CAPSULE: Somewhat linear, intermediate T2 signal within the undersurface of the superior and posterosuperior labrum, new when compared to the prior examination and consistent with a nondisplaced undersurface tear. Intact inferior joint capsule. GLENOHUMERAL JOINT/MARROW: Mild articular cartilage signal heterogeneity with tiny marginal osteophytes. Mild glenohumeral joint fluid with extension into the subacromial-subdeltoid bursa. MR/MR shoulder RT wo con IMPRESSION: 1. Moderate supraspinatus tendinosis with irregular focal full-thickness partial tearing measuring 0.8 x 1.5 cm (AP x ML), new/increased when compared to the prior examination. Mild infraspinatus tendinosis, slightly increased. Subscapularis tendinosis with distal articular surface fraying/partial tearing, similar when compared to the prior examination. 2. Interval absence/attenuation of the proximal long head biceps tendon which could represent increased tearing versus interval tenodesis. Correlate with surgical history. 3. Interval acromioplasty and distal clavicular resection. 4. Nondisplaced undersurface tear of the superior and posterosuperior labrum, new when compared to the prior examination. 5. Mild glenohumeral osteoarthritis. Mild joint fluid extending into the subacromial-subdeltoid bursa. Electronically signed by: Rolando Mckeon MD 02/17/2024 12:11 PM EDT RP
== END 2024-02-15 10:26 | disposition home or self-care (01) ==
LOC: HO.MRI 10:25
PROVIDERS: PCP Internal Medicine; Visit Provider Orthopaedic Surgery
DX: M25.511 Pain in right shoulder (principal); D64.9 Anemia, unspecified; K92.1 Melena; Z98.84 Bariatric surgery status
CPT/HCPCS: 73221; 99212

== ENCOUNTER 2024-02-15 14:10 | Outpatient (AMB) | payer OTHER, SELFPAY ==
[2024-02-15 14:17] VITALS: BP 108/51; PULSE 72; BMI 36.8
--- NOTE | 2024-02-15 14:17 | A.OFFVIS_ITS ---
Vital Signs 02/15/24 14:17 Height 6 ft Weight 271 lb 2.697 oz BMI 36.8 BP 108/51 L Blood Pressure Location Lt brachial Position Sitting Pulse 72 Intake Visit Reasons: 6 months follow up Intake Note: Aris presents in the office as as 6 month follow up. CC: He states that certain things will give him certain symptoms. Other than that he is feeling good. [employer] Worker Required: No Allergies No Known Allergies Allergy (Verified 02/15/24 14:23) HPI Comments Details: 67 y.o M with PMH of who is here for intermittent black stools. 11/01/22: Pt reports he first noticed black stools 1.5y ago and now becoming more frequent. Last black BM was today. Stools are loose. Reports nausea and frequent burping with this. No change in appetite, has been gaining weight in fact. USed to take meloxicam BID but stopped it a few months ago due to black stools. Had blood work done just today at OR, but we do not records for these. Does not recall if he has anemia but likely did have iron deficiency at some point as reports being on iron supplements for 2-3 years now. Last colo was 3 years ago done at [facility], no polyps but was told to return in 5 years due to fam hx of CRC in mother. 12/21/22: Impression: 1. Normal esophageal mucosa 2. Oscar erosions 3. Hiatal hernia 4. Gastrojejunal bypass (biopsy) 5. Normal jejunal mucosa (biopsy) 6. Normal colon and terminal ileum mucosa 7. Diverticulosis 8. Internal and external hemorrhoids Recommendations:?? * Anemia and melena likely 2/2 spontaneously oozing Oscar erosions. * Continue PPI therapy * Avoid NSAIDs * Follow path results * Repeat colonoscopy in 5 years due to fam hx of CRC? Path: A.? Jejunum, biopsy:? Small intestinal mucosa with patchy hemosiderin deposition; otherwise within normal limits. B.? Blind limb, biopsy:? Small intestinal mucosa with patchy hemosiderin deposition and reactive appearing lymphoid aggregates; otherwise within normal limits. C.? Stomach, biopsy:? Oxyntic mucosa with mild chronic inactive inflammation; no Helicobacter organisms seen. 01/12/23: Had ??hives after increasing omeprazole to BID so has now switched to taking omeprazole 20 in AM and pepcid 20 in PM. Continues to notice black stools occasionally but also remains on iron supplements. Otherwise no abd pain, N,V. 04/09/23: Here for follow up - had blood work done through his PCP in Feb which shows H/H stable. No iron studies available. Pt himself reports no abd pain, melena has resolved. Continues to take omeprazole 20mg in AM and famotidine 20mg in PM however did NOT go back on iron supplements as previously discussed. 08/15/23: Here for follow-up. Reports no acute gastrointestinal issues. Pepcid was discontinued after the last visit. Anemia and iron studies were stable last time, and patient did not need to resume p.o. iron supplements. Currently, does not report any abdominal pain, nausea, vomiting, change in appetite or melena. On PPI once daily. 02/15/24: Here for routine 6m follow up. Labs reveiwed. Borderline non-iron deficiency anemia with low RBC count. Also noted to have mildly low lymphocyte count. Irons studies normal despite not taking any iron supplementation x 6 months. [facility] Medical History Hematoma Pre-diabetes Hearing loss Diverticulosis Lumbar stenosis Syncope Osteoarthritis BPH (benign prostatic hyperplasia) Heart abnormality GERD (gastroesophageal reflux disease) Anemia Surgical History History of evacuation of hematoma History of ankle surgery Hx of excision of mass History of decompression of ulnar nerve History of surgery on wrist Hx of total knee replacement Hx of spinal surgery Hx of gastric bypass Hx of shoulder surgery Hx of neck surgery Hx of cataract surgery Hx of colonoscopy History of esophagogastroduodenoscopy (EGD) Family History Mother Intestinal cancer Sister Substance use disorder Social History Household Members: Spouse 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:: , 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 Are you a primary healthcare administrative assistant to a significant other at home: No Do you presently have visiting nurse or other home services: No Alcohol intake: current Alcohol intake frequency: a few times a week Patient Tobacco Use Status: Former Tobacco user Years Smoked: 10 e-Cigarette/Vaping Use: Never Used service: Yes Current occupational status: employed 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, 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 Cognitive needs: No Hearing needs: No Vision needs: Yes Review of Systems Const All systems reviewed & are unremarkable except as noted in HPI and below Physical Exam Vital Signs: Last Vital Signs Pulse 72 02/15/24 14:17 BP 108/51 L 02/15/24 14:17 BMI result Body Mass Index 36.8 No apparent distress Nonicteric Abdomen soft, nondistended Alert and oriented x3, normal gait Assessment & Plan Assessment & Plan (1) Anemia: Code(s): D64.9 - Anemia, unspecified Category: Medical (2) Melena: Code(s): K92.1 - Melena Category: Medical (3) Hx of gastric bypass: Comment: [facility] Code(s): Z98.84 - Bariatric surgery status Category: Surgical Plan Pt now with very MILD non-iron deficiency for which he will be seeing hematology. From GI standpoint, recommend cont'd use of PPI indefinitely given hx of bypass and charli while pt on NSAIDs (takes meloxicam). Plan: - Heme appt for Mar 20 - Next colo in 2027 due to fam hx Follow up with GI PRN in the meantime. Medications: Changed From omeprazole 40 mg PO QAM To omeprazole 20 mg PO QAM 90 days 90 caps 1RF Discontinued amoxicillin Take four caps (2,000 mg) one hour prior to any dental work. Discontinued Reason: Doctor's Order 2,000 mg (4 x 500 mg) PO ONCE 20 caps 0RF Coding Level of Care Code Est Pt Level 3 (67229) Diagnoses Anemia D64.9 Melena K92.1 Hx of gastric bypass Z98.84
== END 2024-02-15 15:26 | disposition home or self-care (01) ==
PROVIDERS: PCP Internal Medicine; Visit Provider Internal Medicine
DX: D64.9 Anemia, unspecified (principal); K92.1 Melena; Z98.84 Bariatric surgery status
CPT/HCPCS: 99213

== ENCOUNTER 2024-03-05 11:20 | Outpatient (AMB) | payer OTHER, SELFPAY ==
--- NOTE | 2024-03-05 11:09 | A.OFFVIS_ITS ---
Intake Visit Reasons: TH-Right Shoulder MRI Review [phone] Intake Note: Aris is a 68 year old Right hand dominate male who presents with complaints of progressively worsening right shoulder pain and weakness after falling onto his bilateral upper extremities on 10/12/2023. The patient did undergo right sh oulder arthroscopic surgery on 07/13/2023. States that he was doing well up until his fall. States that he fell while walking at work when a curb ?crumbled? below him. He subsequently underwent surgery for a left hand fracture caused by the fall. He states that he also suffered a fracture to his right wrist which is being treated non operatively. The patient reports weakness when lifting his right hand above shoulder height. He did not have this weakness prior to his fall. He has tried Tylenol and anti-inflammatory medicines which gave him only mild relief. The patient is currently going to occupational therapy. This visit was via a phone conversation. Allergies No Known Allergies Allergy (Verified 03/05/24 11:09) Medication List - Last Reconciled 03/05/24 by Victorino De La Cruz MD acetaminophen ER 1,300 mg PO Q8H alfuzosin ER 10 mg PO BEDTIME aspirin mg PO buprenorphine HCl 75 mcg buccal Q12H diclofenac sodium 1% 1 ea topical BID fluocinonide 0.05% 1 appl topical BID meloxicam submicronized 10 mg PO QAM omeprazole 20 mg PO QAM 90 days oxybutynin chloride ER 20 mg PO QAM tadalafil 5 mg PO QAM tolterodine ER 4 mg PO QAM PFSH Medical History Hematoma Pre-diabetes Hearing loss Diverticulosis Lumbar stenosis Syncope Osteoarthritis BPH (benign prostatic hyperplasia) Heart abnormality GERD (gastroesophageal reflux disease) Anemia Surgical History History of evacuation of hematoma History of ankle surgery Hx of excision of mass History of decompression of ulnar nerve History of surgery on wrist Hx of total knee replacement Hx of spinal surgery Hx of gastric bypass Hx of shoulder surgery Hx of neck surgery Hx of cataract surgery Hx of colonoscopy History of esophagogastroduodenoscopy (EGD) Family History Mother Intestinal cancer Sister Substance use disorder Social History Household Members: Spouse 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:: , 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 Are you a primary medical care administrator to a significant other at home: No Do you presently have visiting nurse or other home services: No Alcohol intake: current Alcohol intake frequency: a few times a week Patient Tobacco Use Status: Former Tobacco user Years Smoked: 10 e-Cigarette/Vaping Use: Never Used service: Yes Current occupational status: employed 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, 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 Cognitive needs: No Hearing needs: No Vision needs: Yes Physical Exam Const Other: telehealth with no physical examination Telehealth Telehealth Telehealth Platform: Telephone Location of provider rendering services: practice address Location of patient: address on file Patient Identification confirmed using: Name, : Yes Telehealth method: voice only Patient verbally consented to treatment: Yes Patient verbally consented to billing insurance company: Yes Patient informed of any privacy concerns related to visit: Yes Results Reviewed Results Reviewed: MRI of the patient's right shoulder show signal change within the supraspinatus tendon due to partial-thickness tearing versus a small full-thickness rotator cuff tear Assessment & Plan Assessment & Plan (1) Right shoulder pain: Code(s): M25.511 - Pain in right shoulder Category: Medical Plan Mr. Hernandez presents with recurrent right shoulder pain and weakness due to partial-thickness tearing of his rotator cuff tendons versus a small full- thickness tear. The patient states that his symptoms have gotten worse since his visit in October. He continues with his range of motion exercises. The pat ient states that his weakness did not exist prior to his work-related injury in October. The patient has worsening symptoms which are most likely due to that injury although the patient has had two right shoulder surgeries in the past, most recently on 07/13/2023. The treatment options were discussed at length with the patient. The patient is interested in proceeding with a right shoulder cortisone injection. Thus, he will be scheduled for next available opening. He will continue with his range of motion exercises in the meantime. Feel free to call me at any time should questions regarding his orthopedic management arise. I spent 21 minutes in reviewing the patient's records and imaging studies as well as documenting in the medical record. Coding Level of Care Code Tele Est Pt Level 3 (23163) Complex EM visit Add On G2211 Diagnoses Right shoulder pain M25.568
== END 2024-03-05 11:49 | disposition home or self-care (01) ==
LOC: HO.HOS 11:20
PROVIDERS: PCP Internal Medicine; Visit Provider Orthopaedic Surgery
DX: M25.511 Pain in right shoulder (principal); W19.XXXA Unspecified fall, initial encounter; Z04.2 Encounter for examination and observation following work accident
CPT/HCPCS: 99213

== ENCOUNTER → 2024-03-05 11:20 | Outpatient (BNVA) | payer OTHER, SELFPAY | PROVIDERS: PCP Internal Medicine; Visit Provider Orthopaedic Surgery ==

== ENCOUNTER 2024-03-13 13:54 | Outpatient (AMB) | payer OTHER, SELFPAY ==
[2024-03-13 13:57] VITALS: BMI 36.8
--- NOTE | 2024-03-13 13:57 | MHC.OFFVIS ---
Vital Signs 03/13/24 13:57 Height 6 ft Weight 271 lb BMI 36.8 Intake Visit Reasons: Right shoulder pain Intake Note: Aris is a 68 year old Right hand dominate male who presents with complaints of progressively worsening right shoulder pain and weakness after falling onto his bilateral upper extremities on 10/12/2023. The patient did undergo right shoulder arthroscopic surgery on 07/13/2023. States that he was doing well up until his fall. States that he fell while walking at work when a curb ?crumbled? below him. He subsequently underwent surgery for a left hand fracture caused by the fall. He states that he also suffered a fracture to his right wrist which is being treated non operatively. The patient reports weakness when lifting his right hand above shoulder height. He did not have this weakness prior to his fall. He has tried Tylenol and anti-inflammatory medicines which gave him only mild relief. The patient is currently going to occupational therapy. Allergies No Known Allergies Allergy (Verified 03/13/24 14:01) Medication List - Last Reconciled 03/13/24 by Victorino De La Cruz MD acetaminophen ER 1,300 mg PO Q8H alfuzosin ER 10 mg PO BEDTIME aspirin mg PO buprenorphine HCl 75 mcg buccal Q12H diclofenac sodium 1% 1 ea topical BID fluocinonide 0.05% 1 appl topical BID meloxicam submicronized 10 mg PO QAM omeprazole 20 mg PO QAM 90 days oxybutynin chloride ER 20 mg PO QAM tadalafil 5 mg PO QAM tolterodine ER 4 mg PO QAM PFSH Medical History Hematoma Pre-diabetes Hearing loss Diverticulosis Lumbar stenosis Syncope Osteoarthritis BPH (benign prostatic hyperplasia) Heart abnormality GERD (gastroesophageal reflux disease) Anemia Surgical History History of evacuation of hematoma History of ankle surgery Hx of excision of mass History of decompression of ulnar nerve History of surgery on wrist Hx of total knee replacement Hx of spinal surgery Hx of gastric bypass Hx of shoulder surgery Hx of neck surgery Hx of cataract surgery Hx of colonoscopy History of esophagogastroduodenoscopy (EGD) Family History Mother Intestinal cancer Sister Substance use disorder Social History Household Members: Spouse 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8 Const Other: Well-nourished well-developed very friendly male awake alert and oriented x3 in no acute distress Extrem Other: Bilateral upper extremity examination shows good capillary refill, no skin lesions noted, normal sensation light touch Right shoulder examination shows slightly decreased range of motion when compared to his left shoulder, 4/5 strength with supraspinatus testing, positive impingement signs, no instability Office Procedures Joint Injection/Aspiration Joint Injection/Aspiration Primary Site: right shoulder Prep: site was prepped using aseptic technique Injected: 40 mg of, DepoMedrol and 1% plain lidocaine Procedure: The patient tolerated the procedure well Coding 78721 - Large joint Procedure code (CPT) selection complete Results Reviewed Results Reviewed: MRI of the patient's right shoulder shows signal change within the supraspinatus tendon most likely due to partial-thickness rotator cuff tearing versus a small full-thickness tear Assessment & Plan Assessment & Plan (1) Right shoulder pain: Code(s): M25.511 - Pain in right shoulder Category: Medical Plan Mr. Hernandez presents with recurrent right shoulder pain and weakness due to impingement syndrome and partial-thickness rotator cuff tearing versus a possible small full-thickness tear. I had a lengthy discussion with the patient regarding the treatment options. The risks and benefits of a right shoulder cortisone injection were discussed at length with the patient. The patient wished to proceed. He tolerated the injection well. He will continue with his home stretching program to prevent stiffness. He will contact me prior to his follow-up appointment in 3 months should any questions or concerns arise. Feel free to call me at any time should questions regarding his orthopedic management arise. I spent 22 minutes in reviewing the patient's records and imaging studies, seeing the patient and documenting in the medical record. Orders: Orders AMB Joint Injection/Aspiration Today M25.511 - Pain in right shoulder Coding Level of Care Code Est Pt Level 3 (18505) Complex EM visit Add On G2211 Diagnoses Right shoulder pain M25.511 CPT Codes Coding - 34960 Large joint: 97291 - Large joint ([id number])
== END 2024-03-13 14:19 | disposition home or self-care (01) ==
PROVIDERS: PCP Internal Medicine; Visit Provider Orthopaedic Surgery
DX: M75.41 Impingement syndrome of right shoulder (principal); M75.111 Incomplete rotator cuff tear or rupture of right shoulder, not specified as traumatic; W19.XXXA Unspecified fall, initial encounter; Z04.2 Encounter for examination and observation following work accident
CPT/HCPCS: 20610; 99213

== ENCOUNTER → 2024-03-13 13:54 | Outpatient (BNVA) | payer OTHER, SELFPAY | PROVIDERS: PCP Internal Medicine; Visit Provider Orthopaedic Surgery | DX: M25.511 Pain in right shoulder (principal); Z91.81 History of falling | CPT/HCPCS: 20610; 99212; J1010; J2003 ==

== ENCOUNTER 2024-03-18 15:30 | Outpatient (RCR) | payer OTHER, SELFPAY | END 2024-03-19 11:30 | disposition home or self-care (01) | LOC: HO.OT 15:30 | PROVIDERS: PCP Internal Medicine; Visit Provider Orthopaedic Surgery Hand Surgery | DX: S62.617D Displaced fracture of proximal phalanx of left little finger, subsequent encounter for fracture with routine healing (principal) | CPT/HCPCS: 97110; 97140; 97166; 97530; 97760 ==

== ENCOUNTER → 2024-05-01 14:54 | Outpatient (BNV) | payer OTHER, SELFPAY | PROVIDERS: PCP Internal Medicine; Visit Provider Internal Medicine Medical Oncology | DX: D64.9 Anemia, unspecified (principal) | CPT/HCPCS: 99204 ==

== ENCOUNTER 2024-05-20 08:35 | Outpatient (AMB) | payer OTHER, SELFPAY ==
--- OUTSIDE RECORDS SUMMARY | 2024-05-20 08:38 | XMS_ITS ---
Author Name [facility] [place] [facility] [place] Address [address] [place] [address] Care Team Providers Care Receiving Weigher Name Role Phone KRISTOPHER MAXWELL Primary Care Provider [facility] Insurance Providers: All historical and current Section Date Range: From patient's date of to the date document was created. This section includes the names of all active insurance providers for the patient. Insurance Provider Type of Coverage Plan Name Start of Policy Coverage End of Policy Coverage Group Number Member ID Insurance Provider's Telephone Number Policy Lee's Name Patient's Relationship to Policy Lee CAREMARK PRESCRIPT ION [id number] 1 May 28, 2017 [id number] [phone] OBDULIO,Weston ILLIAM PATIENT [employer] PRESCRIPT ION [id number] 1 May 28, 2017 [id number] Weston MAK ILLIAM PATIENT [employer] RX PRESCRIPT ION RX May 28, 2022 [id number] [phone] OBDULIOWeston ILLIAM PATIENT [facility] PLAN ALLEGRA Rincon May 28, 2017 [id number] OBDULIO,W ILLIAM PATIENT [facility] USP May 28, 2017 [facility] [id number] [phone] OBDULIO,W ILLIAM PATIENT [facility] (WNR) TRICA RE(WN R) May 28, 2017 (WNR) [id number] OBDULIO,W ILLIAM [facility]IENT [facility] May 28, 2014 [id number] OBDULIO,W ILLIAM PATIENT Selected Encounter This section includes the information on record at [place] for the Encounter. Date/Time Encounter Type Encounter Description Reason Provider Source Jul 06, 2023 08:00 AM [facility]FORMITY EVALUATION AUDIOLOGY ICD-10-CM Z46.1 Encounter for fitting and adjustment of hearing aid CHRIS ROBERTSON [facility] Encounter Template Text not used by [place] Assessments - Encounter Diagnoses This section includes the primary and secondary diagnoses documented for the Encounter. Date/Time Primary/Secondary Diagnosis Diagnosis Name Provider Source Jul 06, 2023 09:00 AM PRIMARY Encounter for fitting and adjustment of hearing aid [facility] Jul 06, 2023 09:00 AM SECONDARY Sensorineural hearing loss, bilateral [facility] ROBERT[place] [facility] [place] [facility] Plan of Treatment: Future Appointments (+ 6 months) and Future Tests (+/- 45 days) The Plan of Treatment section includes future care activities for the patient from all [place] treatmentfacilities. This section includes future appointments and future orders which are active, pending or scheduled. Future Appointments This section includes appointments that were scheduled to occur 6 months from the date of the Encounter, up to a maximum of 20 appointments. The data comes from all [place] treatment facilities. Appointment Date/Time Appointment Type Appointme nt Facility Name Aug 15, 2023 08:00 AM [facility] [place] [facility] [place] [facility] Aug 17, 2023 01:30 PM [facility] Aug 24, 2023 11:00 AM [facility] [place] [facility] [facility] [place] [facility] Aug 28, 2023 10:00 AM [facility] [place] [facility] [facility] [place] [facility] Aug 31, 2023 09:00 AM [facility] [place] [facility] Aug 31, 2023 10:00 AM AMBULATORY [facility]HAB MEDICIN [facility] [place] [facility] Sep 07, 2023 10:00 AM [facility] [place] [facility] Sep 14, 2023 10:00 AM [facility] [place] [facility] Sep 21, 2023 10:30 AM [facility] [place] [facility] September 28, 2023 08:30 AM AM[facility]ULATORY [facility] [place] [facility] October 01, 2023 09:00 AM AMBULATORY - REHAB MEDICIN [facility] [place] [facility] October 11, 2023 02:30 PM [facility]ATORY [facility]ICINE [facility] October 19, 2023 08:30 AM [facility] [place] [facility] Nov 13, 2023 01:30 PM AM[facility]ULATORY [facility] MEDICINE [facility] [place] [facility] Dec 14, 2023 11:30 AM AM[facility]ORY [facility] [place] [facility] Dec 28, 2023 10:00 AM AM[facility]ULATORY [facility] [place] [facility] Advance Directives: All historical and current Section Date Range: From patient's date of to the date document was created. This section includes ALL of a patient's completed or amended [place] Advance and Rescinded Directives. The entries below indicate that a directive exists for the patient, but an actual copy is not included with this document. The data comes from all [place] facilities. Date Advance Directives Provider Source Dec 02, 2020 ADVANCE DIRECTIVE SOULEYMANEZAIRE RENUKA [facility] Encounter Notes: All associated encounter notes This section contains the clinical notes associated to the Encounter. Date/Time Encounter Note(s) Provider Source Jul 06, 2023 08:54 AM AUDIOLOGY E & M NO TE: [facility] TITLE: AUDIOLOGY CLINIC STANDARD TITLE: AUDIOLOGY E & M NOTE DATE OF NOTE: JUL 06, 2023@08:54 ENTRY DATE: JUL 06, 2023@08:55 AUTHOR: CHRIS ROBERTSON COSIGNER: URGENCY: STATUS: COMPLETED Dx CODE: Z46.1- Encounter for Fitting/Programming Hearing Aid(s); H90.3- Sensorineural Hearing Loss, Bilateral APPOINTMENT TYPE: Hearing Aid Fitting SUBJECTIVE (S): The patient was seen today for hearing aid fitting and issuance, unaccompanied. He had previously been evaluated and found to exhibit significant hearing loss for which amplification was recommended. He is a previous user of hearing aids, and was fit on 03/23/20 with TERRY MENDEZ EDGE AI BTE 13s. How does the patient best learn? Verbal instruction, demonstration Does the patient have any cultural and caodaism beliefs, emotional barriers, physical or cognitive limitations, and communication barriers which may impact his ability to learn? No Desire and motivation to learn? Good OBJECTIVE (O): Physical fit of hearing aids was good. Patient verified comfort. Verification of an appropriate acoustic response was obtained using Real Ear measurements (speech mapping) and NAL-NL2 targets. The patient reported good subjective benefit as well. Feedback ecommerce project manager was run. Hearing aids were found to be meeting targets adequately and MPO was not exceeding estimated UCL. Settings stored in JOSE L. ASSESSMENT (A): The following devices were issued: Make: TERRY Model: EVOLV AI BTE 13 Right Serial Number: [id number] Left Serial Number: [id number] Battery size: 13 Warranty ends: 07/10/26 Trial Period ends: 12/08/23 Earmold Information: Canal lock molds TubinT Program(s): Automatic Button(s): Short press= Synced VC via rocker switches Long press= Accessory start/stop Extra-long press= Power on/off Fitting Formula: NAL-NL2 Remote Programming: HAs are capable Bluetooth: Canova will pair on own Accessories: TERRY STARLINK REMOTE [facility], SN: [id number] Counseling was completed throughout todays appointment using a standardized curriculum that includes but is not limited to; realistic expectations with amplification in adverse listening environments, acclimatization to own voice and environmental sounds (following real-ear measurements), the importance of consistent use of amplification, proper insertion/removal, care and maintenance (including wax guards/domes if applicable), signal and alerts of devices, and charging/batteries. The was provided the opportunity to practice in office and reports confidence/understanding in all items reviewed. Time Spent= 20 minutes The patient was informed of and signed/agreed to [place] policy on hearing aid issuance: Yes Users are responsible for the maintenance and security of their devices. Determination of need to replace a hearing aid is made by the [place] supplier relationship director. Hearing aids will not be replaced in cases of neglect, abuse, or excessive loss. Items issued are for personal use only. Prognosis for successful hearing aid use is good. PLAN (P): 1. Follow-up for programming/adjustments as needed. 2. The International Outcome Inventory-Hearing Aids (IOI-VILLALOBOS) will be mailed to the in four weeks. He was asked to complete and mail back to clinic after completion. Patient Education Education provided on the following topics: Hearing aid use, care, maintenance Education provided to: P Response to Education: GISELA GORE, PI Ramirez Patient P Family F Significant Other SO Verbalizes Understanding VU Returns Demonstration RD Performs Independently PI Lacks Comprehension LC Refused Education RE Not Applicable NA /jac/ ALISA GREGORIO, CCC-A STAFF ENTEROSTOMAL NURSE Signed: 07/06/2023 09:01 [facility]
--- OUTSIDE RECORDS SUMMARY | 2024-05-20 08:38 | XMS_ITS | Encounter Summary ---
Author Name [facility] [place] [facility] [place] Address [address] [place] [address] Care Team Providers Care Ux Developer Designer Name Role Phone KRISTOPHER MAXWELL Primary Care Provider Unavailabl e Insurance Providers: All historical and current [...] PRESCRIPT ION [id number] 1 May 28, 2017 [id number] OBDULIO,W ILLIAM PATIENT CAREMARK PRESCRIPT ION [id number] 1 May 28, 2017 [id number] [phone] OBDULIO,W ILLIAM PATIENT OPTUM RX PRESCRIPT ION RX May 28, 2022 [id number] [phone] OBDULIO,W ILLIAM [facility]IENT [facility] May 28, 2017 [facility] [id number] [phone] OBDULIO,W ILLIAM PATIENT [facility] PL[facility] PATRICIA Rincon May 28, 2017 [id number] [phone] OBDULIO,W ILLIAM PATIENT [facility] (R) TRICA RE(WN R) May 28, 2017 (WNR) [id number] OBDULIO,W ILLIAM PATIENT [facility] (WNR) HMO May 28, 2014 [id number] [phone] OBDULIOWeston GUY PATIENT Selected Encounter This section includes the information on record at [place] for the Encounter. Date/Time Encounter Type Encounter Description Reason Provider Source Aug 15, 2023 08:00 AM Outpatient Encounter AUDIOLOGY ICD-10-CM Z02.89 Encounter for other administrative examinations BUTCH ERAZO Sergey Encounter Template Text not used by [place] Assessments - Encounter Diagnoses This section includes the primary and secondary diagnoses documented for the Encounter. Date/Time Primary/Secondary Diagnosis Diagnosis Name Provider Source Aug 15, 2023 09:08 AM PRIMARY Encounter for other administrative examinations BUTCH ERAZO [place] [facility] [place] [facility] Aug 15, 2023 09:08 AM SECONDARY Sensorineural hearing loss, bilateral BUTCH ERAZO [facility] [place] [facility] Aug 15, 2023 09:08 AM SECONDARY Tinnitus, bilateral BUTCH ERAZO [facility] [place] [facility] Plan of Treatment: Future Appointments (+ 6 months) and Future Tests (+/- 45 days) The Plan of Treatment section includes future care activities for the patient from all [place] treatmentfacilities. This section includes future appointments and future orders which are active, pending or scheduled. Future Appointments This section includes appointments that were scheduled to occur 6 months from the date of the Encounter, up to a maximum of 20 appointments. The data comes from all [place] treatment facilities. Appointment Date/Time Appointment Type Appointme nt Facility Name Aug 17, 2023 01:30 PM AMBULATORY [facility] Aug 24, 2023 11:00 AM AMBULATORY - MEDICINE [place] [facility] [place] [facility] Aug 28, 2023 10:00 AM AMBULATORY - MEDICINE [place] [facility] [place] [facility] Aug 31, 2023 09:00 AM AMBULATORY - MEDICINE [facility] [place] [facility] Aug 31, 2023 10:00 AM AMBULATORY - REHAB MEDICIN E [facility] [place] [facility] Sep 07, 2023 10:00 AM AMBULATORY - MEDICINE [facility] [facility] Sep 14, 2023 10:00 AM AMBULATORY - MEDICINE [facility] [facility] Sep 21, 2023 10:30 AM AMBULATORY - MEDICINE [facility] [place] [facility] September 28, 2023 08:30 AM AMBULATORY - MEDICINE [facility] [place] [facility] October 01, 2023 09:00 AM AMBULATORY - REHAB MEDICIN E [facility] [place] [facility] October 11, 2023 02:30 PM AMBULATORY - MEDICINE [facility] October 19, 2023 08:30 AM AMBULATORY - MEDICINE [facility] [place] [place] [facility] Nov 13, 2023 01:30 PM AMBULATORY - MEDICINE [facility] [place] [facility] Dec 14, 2023 11:30 AM AMBULATORY - MEDICINE [facility] [place] [facility] Dec 28, 2023 10:00 AM AMBULATORY - MEDICINE [facility] [place] [facility] Jan 11, 2024 09:00 AM AMBULATORY - MEDICINE [facility] [facility] Jan 14, 2024 11:00 AM AMBULATORY - REHAB MEDICIN E [facility] [place] [facility] Feb 08, 2024 08:30 AM AMBULATORY - MEDICINE [facility] [place] [facility] Advance Directives: All historical and current Section Date Range: From patient's date of to the date document was created. This section includes ALL of a patient's completed or amended VA Advance and Rescinded Directives. The entries below indicate that a directive exists for the patient, but an actual copy is not included with this document. The data comes from all [place] facilities. Date Advance Directives Provider Source Dec 02, 2020 ADVANCE DIRECTIVE ZAIRE COMER [facility] [place] Encounter Notes: All associated encounter notes This section contains the clinical notes associated to the Encounter. Date/Time Encounter Note(s) Provider Source Aug 15, 2023 09:16 AM ADDENDUM: LOCAL TITLE: Addendum STANDARD TITLE: ADDENDUM DATE OF NOTE: AUG 15, 2023@09:16:03 ENTRY DATE: AUG 15, 2023@09:16:04 AUTHOR: JUNAID ERAZO COSIGNER: URGENCY: STATUS: COMPLETED [place] is currently wearing bilateral Melanie Evolv AI BTE-13 hearing aids he was issued on 07/06/23. [place] requested scheduling a maintenance appointment 3 months from date of issue. He is scheduled for a [employer] appointment on 10/01/23 at 9am. [facility] placed. /es/ Rose Doyle [facility]A Take Off Man Signed: 08/15/2023 09:17 Receipt Acknowledged By: 08/15/2023 11:42 /es/ JACOBO CRUZ ADVANCED TECHNICAL ARCHITECT === --- Original Document --- 08/15/23 COMPENSATION AND PENSION EXAM : Hearing Loss and Tinnitus Disability Benefits Questionnaire Name of patient/: TEODORA MAK Is this DBQ being completed in conjunction with a VA [id number], C&P Examination Request? [X] Yes [ ] No How was the examination completed? (check all that apply) [X] In-person examination [X] Records reviewed [ ] Examination via approved video telehealth [ ] Other, please specify in comments box Comments: JACKSON and Evidence Review Indicate method used to obtain medical information to complete this document: [ ] Review of available records (without in-person or video telehealth examination) using the Acceptable Clinical Evidence (JACKSON) process because the existing medical evidence provided sufficient information on which to prepare the questionnaire and such an examination will likely provide no additional relevant evidence. [ ] Review of available records in conjunction with an interview with the [place] (without in-person or telehealth examination) using the JACKSON process because the existing medical evidence supplemented with an interview provided sufficient information on which to prepare the questionnaire and such an examination would likely provide no additional relevant evidence. Evidence Review Evidence reviewed (check all that apply): [X] [place] electronic health record [X] [place] e-folder This exam is for: Tinnitus only (instrument room technician or non-instrument room technician clinician) SECTION 2: TINNITUS 1. 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 2. Etiology of tinnitus At least as likely as not (likelihood is at least approximately balanced or nearly equal, if not higher) caused by or a result of noise exposure. 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 Enlistment audiogram dated 06/13/74 shows normal hearing in both ears from 500-2000 Hz and at 4000 Hz (3000 and 6000 Hz were not tested). Shelter audiogram dated 03/20/94 shows normal hearing in both ears from 500-6000 Hz. Given that 3000 and 6000 Hz were not tested at time of enlistment, significant threshold shifts cannot be ruled out at those test frequencies at time of separation. Given 's reports of exposure to hazardous noise while he was in the service, and unknown hearing levels at 3000 and 6000 Hz at time of enlistment, 's tinnitus is at least as likely as not a result of noise exposure. 3. Functional impact of tinnitus ------- Does the 's tinnitus impact ordinary conditions of daily life, including ability to work: No 4. Remarks, if any, pertaining to tinnitus:: No response provided NOTE: [place] may request additional medical information, including additional examinations if necessary to complete VA's review of the 's application. /jac/ Rose Doyle CCC-A Take Off Man Signed: 08/15/2023 09:15 JUNAID ERAZO [facility] [place] [facility] Aug 15, 2023 08:00 AM C & P EXAMINATION NOTE: LOCAL TITLE: COMPENSATION AND PENSION EXAM STANDARD TITLE: C & P EXAMINATION NOTE DATE OF NOTE: AUG 15, 2023@08:00 ENTRY DATE: AUG 15, 2023@09:15:37 AUTHOR: JUNAID ERAZO EXP COSIGNER: URGENCY: STATUS: COMPLETED COMPENSATION AND PENSION EXAM Has ADDENDA Hearing Loss and Tinnitus Disability Benefits Questionnaire Name of patient/: TEODORA MAK Is this DBQ being completed in conjunction with a [place] [id number], C&P Examination Request? [X] Yes [ ] No How was the examination completed? (check all that apply) [X] In-person examination [X] Records reviewed [ ] Examination via approved video telehealth [ ] Other, please specify in comments box Comments: JACKSON and Evidence Review Indicate method used to obtain medical information to complete this document: [ ] Review of available records (without in-person or video telehealth examination) using the Acceptable Clinical Evidence (JACKSON) process because the existing medical evidence provided sufficient information on which to prepare the questionnaire and such an examination will likely provide no additional relevant evidence. [ ] Review of available records in conjunction with an interview with the [place] (without in-person or telehealth examination) using the JACKSON process because the existing medical evidence supplemented with an interview provided sufficient information on which to prepare the questionnaire and such an examination would likely provide no additional relevant evidence. Evidence Review Evidence reviewed (check all that apply): [X] [place] electronic health record [X] [place] e-folder This exam is for: Tinnitus only (instrument room technician or non-instrument room technician clinician) SECTION 2: TINNITUS 1. 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 2. Etiology of tinnitus At least as likely as not (likelihood is at least approximately balanced or nearly equal, if not higher) caused by or a result of noise exposure. 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 Enlistment audiogram dated 06/13/74 shows normal hearing in both ears from 500-2000 Hz and at 4000 Hz (3000 and 6000 Hz were not tested). Shelter audiogram dated 03/20/94 shows normal hearing in both ears from 500-6000 Hz. Given that 3000 and 6000 Hz were not tested at time of enlistment, significant threshold shifts cannot be ruled out at those test frequencies at time of separation. Given 's reports of exposure to hazardous noise while he was in the service, and unknown hearing levels at 3000 and 6000 Hz at time of enlistment, 's tinnitus is at least as likely as not a result of noise exposure. 3. Functional impact of tinnitus ------- Does the 's tinnitus impact ordinary conditions of daily life, including ability to work: No 4. Remarks, if any, pertaining to tinnitus:: No response provided NOTE: VA may request additional medical information, including additional examinations if necessary to complete VA's review of the 's application. /jac/ Rose Doyle, [facility]A Take Off Man Signed: 08/15/2023 09:15 08/15/2023 ADDENDUM STATUS: COMPLETED is currently wearing bilateral Melanie Evolv AI BTE-13 hearing aids he was issued on 07/06/23. requested scheduling a maintenance appointment 3 months from date of issue. He is scheduled for a [facility] appointment on 10/01/23 at 9am. RTC placed. /jac/ Rose Doyle, [facility])-A Take Off Man Signed: 08/15/2023 09:17 Receipt Acknowledged By: * AWAITING SIGNATURE * JACOBO CRUZ [facility]
--- OUTSIDE RECORDS SUMMARY | 2024-05-20 08:38 | XMS_ITS ---
Author Name [facility] [place] Organization [place] Address [address] [place] [address] Care Team Providers Care Wire Straightener Name Role Phone KRISTOPHER MAXWELL Primary Care Provider Unavailroberth lamar Insurance Providers: All historical and current Section [...] PRESCRIPT ION RX730 1 May 28, 2017 [id number] [phone] [place] MAK MANSOORKaren PATIENT CAREMARK PRESCRIPT ION [id number] 1 May 28, 2017 [id number] [place] MAK PATIENT OPTUM RX PRESCRIPT ION RX May 28, 2022 [id number] [phone] [place] MAK PATIENT [facility] ALLEGRA Lamar May 28, 2017 [id number] OBDULIO,W ILLIAM PATIENT [facility] USP May 28, 2017 [facility] [id number] OBDULIO,W ILLIAM PATIENT [facility] TRICA RE(WN R) May 28, 2017 (WN) [id number] OBDULIO,W ILLIAM PATIENT [facility] (WNR[facility] HMO May 28, 2014 [id number] OBDULIO,W ILLIAM PATIENT Selected Encounter This section includes the information on record at [place] for the Encounter. Date/Time Encounter Type Encounter Description Reason Provider Source Jun 07, 2023 08:00 AM HEARING AID REPAIR/MODIFYIN G AUDIOLOGY ICD-10-CM H90.3 Sensorineural hearing loss, bilateral FRANKY BRUCE Sergey Encounter Template Text not used by [place] Assessments - Encounter Diagnoses This section includes the primary and secondary diagnoses documented for the Encounter. Date/Time Primary/Secondary Diagnosis Diagnosis Name Provider Source Jun 07, 2023 10:52 AM PRIMARY Sensorineural hearing loss, bilateral [facility] [place] [facility] Jun 07, 2023 10:52 AM SECONDARY Encounter for fitting and adjustment of hearing aid FRANKY BRUCE [facility] [place] [facility] Plan of Treatment: Future Appointments (+ 6 months) and Future Tests (+/- 45 days) The Plan of Treatment section includes future care activities for the patient from all [place] treatmentfacilities. This section includes future appointments and future orders which are active, pending or scheduled. Future Appointments This section includes appointments that were scheduled to occur 6 months from the date of the Encounter, up to a maximum of 20 appointments. The data comes from all [place] treatment facilities. Appointment Date/Time Appointment Type Appointme nt Facility Name Jul 06, 2023 08:00 AM AMBULATORY - REHAB MEDICIN E [facility] [place] [facility] Aug 15, 2023 08:00 AM AMBULATORY - MEDICINE [place] [facility] [place] [facility] Aug 17, 2023 01:30 PM [facility] Aug 24, 2023 11:00 AM AMBULATORY - MEDICINE [place] [facility] [place] [facility] Aug 28, 2023 10:00 AM AMBULATORY - MEDICINE [place] [facility] [place] [facility] Aug 31, 2023 09:00 AM AMBULATORY - MEDICINE [place] [facility] [place] [facility] Aug 31, 2023 10:00 AM AMBULATORY - REHAB MEDICIN E [facility] [place] [facility] Sep 07, 2023 10:00 AM AMBULATORY - MEDICINE [facility] [place] [facility] Sep 14, 2023 10:00 AM AMBULATORY - MEDICINE [place] [facility] [place] [facility] Sep 21, 2023 10:30 AM AMBULATORY - MEDICINE [facility] [place] [facility] September 28, 2023 08:30 AM AMBULATORY - MEDICINE [facility] [place] [facility] October 01, 2023 09:00 AM AMBULATORY - REHAB MEDICIN E [facility] [place] [facility] October 11, 2023 02:30 PM AMBULATORY - MEDICINE [facility] October 19, 2023 08:30 AM AMBULATORY - MEDICINE [place] [facility] [place] [facility] Nov 13, 2023 01:30 PM AMBULATORY - MEDICINE [facility] [place] [facility] Advance Directives: All historical and current Section Date Range: From patient's date of to the date document was created. This section includes ALL of a patient's completed or amended VA Advance and Rescinded Directives. The entries below indicate that a directive exists for the patient, but an actual copy is not included with this document. The data comes from all [place] facilities. Date Advance Directives Provider Source Dec 02, 2020 ADVANCE DIRECTIVE ZAIRE COMER [facility] Encounter Notes: All associated encounter notes This section contains the clinical notes associated to the Encounter. Date/Time Encounter Note(s) Provider Source Jun 07, 2023 07:26 AM AUDIOLOGY E & M NOTE: LOCAL TITLE: AUDIOLOGY CLINIC STANDARD TITLE: AUDIOLOGY E & M NOTE DATE OF NOTE: JUN 07, 2023@07:26 ENTRY DATE: JUN 07, 2023@07:26:52 AUTHOR: FRANKY BRUCE COSIGNER: URGENCY: STATUS: COMPLETED AUDIOLOGY CLINIC Has ADDENDA Dx CODE: H90.3-Sensorineural Hearing Loss, Bilateral APPOINTMENT TYPE: Hearing Re-Evaluation and Hearing Aid Selection BACKGROUND/HISTORY: was seen 06/07/23 for a hearing re-evaluation and hearing aid selection appointment, unaccompanied. He was fit with Melanie Rosado Edge AI BTEs on 03/23/2020. He reports his SHT remote madison plus stopped working with one of his hearing aids and he would like a user manual to try to fix it. One was printed out for him. He is eligible for new hearing aids through the [facility] due to the age of the current devices. His last hearing evaluation was on 07/26/21 and he believes his hearing has declined somewhat since then. He also has noticed a worsening in his bilateral tinnitus. [place] has a longstanding history of vertigo, PCP aware. ASSESMENT: Results of today's testing are as follows: Otoscopy was WNL bilaterally. Normal tympanograms obtained bilaterally. Pure tone audiometric testing under headphones in the right ear revealed hearing WNL through 2 kHz sloping to a severe SNHL. Testing in the left ear revealed a mild sloping to profound SNHL. Stable asymmetry, left ear poorer. SRT WORD RECOGNITION (Recorded [place] CNC 1/2 Word List) Right 15dBHL 92% @ 75dBHL/40dBm Left 55dBHL 56% @ 90dBHL/55dBm No significant changes were found when compared to the 07/26/21 audiological evaluation. HEARING AID CHECK: Both hearing aids were cleaned and checked, and found to be in good working order. Microphone covers, tone hooks, and tubes were replaced. HEARING AID SELECTION: Different hearing aid options were discussed. He is interested in technology similar to his previous hearing aids. Melanie Evolv AI BTEs were selected and ordered in [facility]. Recent impressions on file were used for canal lock earmolds. Additionally, per request a starlink remote madison plus was ordered. EDUCATION/COUNSELING: The patient was counseled re: today's hearing test results. He demonstrated satisfactory understanding of the education and plan, and was given the opportunity to ask questions throughout today's visit. PLAN: 1. RTC on 07/06/23 at 8AM for 60 minute hearing aid fitting appointment. 2. Hearing re-evaluation in 3-5 years, or sooner if change in hearing occurs. * Patient Education Education provided on the following topics: Hearing test results Education provided to: P Response to Education: VU Ramirez Patient P Family F Significant Other SO Verbalizes Understanding VU Returns Demonstration RD Performs Independently PI Lacks Comprehension LC Refused Education RE Not Applicable NA * /jac/ ALISA C[place] STAFF ADMINISTRATIVE ASST Signed: 06/07/2023 10:52 Receipt Acknowledged By: 06/08/2023 09:18 /jac/ ROCHELLE KERR Advanced Able Seaman 06/18/2023 ADDENDUM STATUS: COMPLETED Hearing aids received and certified, upcoming appointment scheduled on 07/06/2023. /jac/ JOSÉ CASTELLANO [facility]iology [facility] Washroom Cleaner Signed: 06/18/2023 08:03 [facility]
--- OUTSIDE RECORDS SUMMARY | 2024-05-20 08:38 | XMS_ITS ---
Author Name [facility] [place] [facility] [place] Address [address] [place] [address] Care Team Providers Care Sales Representative Supervisor Name Role Phone KRISTOPHER MAXWELL Primary Care [...] PRESCRIPT ION [id number] May 28, 2017 [id number] PATIENT [place] PRESCRIPT ION [id number] May 28, 2017 [id number] [phone] [facility] PATIENT [facility] RX PRESCRIPT ION RX May 28, 2022 [id number] [facility]IENT [facility] May 28, 2017 [facility] [id number] OBDULIO,W ILLIAM PATIENT [facility] PLAN ALLEGRA [place] May 28, 2017 [id number] OBDULIO,W ILLIAM PATIENT [facility] TRICA RE(WN R) May 28, 2017 (WN) [id number] OBDULIOW ILLIAM PATIENT [facility] (W[facility]) HMO May 28, 2014 [id number] [phone] OBDULIO,W ILLIAM PATIENT Selected Encounter This section includes the information on record at [place] for the Encounter. Date/Time Encounter Type Encounter Description Reason Provider Source May 24, 2023 09:30 AM HEARING AID REPAIR/MODIFYIN G AUDIOLOGY ICD-10-CM Z46.1 Encounter for fitting and adjustment of hearing aid FRANKY BRUCE Sergey Encounter Template Text not used by [place] Assessments - Encounter Diagnoses This section includes the primary and secondary diagnoses documented for the Encounter. Date/Time Primary/Secondary Diagnosis Diagnosis Name Provider Source May 24, 2023 09:52 AM PRIMARY Encounter for fitting and adjustment of hearing aid [facility] May 24, 2023 09:52 AM SECONDARY Sensorineural hearing loss, bilateral [facility] Plan of Treatment: Future Appointments (+ 6 months) and Future Tests (+/- 45 days) The Plan of Treatment section includes future care activities for the patient from all [place] treatmentfacilities. This section includes future appointments and future orders which are active, pending or scheduled. Future Appointments This section includes appointments that were scheduled to occur 6 months from the date of the Encounter, up to a maximum of 20 appointments. The data comes from all [place] treatment facilities. Appointment Date/Time Appointment Type Appointme nt Facility Name Jun 07, 2023 08:00 AM [facility] [place] [facility] Jul 06, 2023 08:00 AM AMBULAT[facility] [place] [facility] Aug 15, 2023 08:00 AM [facility] [place] [facility] Aug 17, 2023 01:30 PM [facility] [place] [place] Aug 24, 2023 11:00 AM [facility] [place] [facility] Aug 28, 2023 10:00 AM [facility] [place] [facility] Aug 31, 2023 09:00 AM [facility] [place] [facility] Aug 31, 2023 10:00 AM AMBULATORY [facility] [place] [facility] Sep 07, 2023 10:00 AM [facility]AT[facility] [place] [facility] Sep 14, 2023 10:00 AM [facility] [place] [facility] Sep 21, 2023 10:30 AM [facility] [place] [facility] September 28, 2023 08:30 AM [facility] [place] [facility] October 01, 2023 09:00 AM AMBULATORY [facility] [place] [facility] October 11, 2023 02:30 PM AM[facility]ULATORY - MEDICINE [facility] October 19, 2023 08:30 AM [facility] [place] [facility] Nov 13, 2023 01:30 PM [facility] [place] [facility] Advance Directives: All historical and current Section Date Range: From patient's date of to the date document was created. This section includes ALL of a patient's completed or amended [place] Advance and Rescinded Directives. The entries below indicate that a directive exists for the patient, but an actual copy is not included with this document. The data comes from all [place] facilities. Date Advance Directives Provider Source Dec 02, 2020 ADVANCE DIRECTIVE SOULEYMANEZAIRE RENUKA [facility] Encounter Notes: All associated encounter notes This section contains the clinical notes associated to the Encounter. Date/Time Encounter Note(s) Provider Source May 24, 2023 07:26 AM AUDIOLOGY E & M NOTE: LOCAL TITLE: AUDIOLOGY CLINIC STANDARD TITLE: AUDIOLOGY E & M NOTE DATE OF NOTE: MAY 24, 2023@07:26 ENTRY DATE: MAY 24, 2023@07:26:49 AUTHOR: FRANKY BRUCE EXP COSIGNER: URGENCY: STATUS: COMPLETED Dx CODE: Z46.1-Encounter for Fitting/Adjusting Hearing Aid(s); H90.3- Sensorineural Hearing Loss, Bilateral APPOINTMENT TYPE: Hearing Aid Maintenance Check HISTORY/BACKGROUND: The patient was seen for a hearing aid maintenance check appointment, unaccompanied. He was fit with Melanie Ayala AI BTEs on 03/23/2020. He was scheduled today to picker/puller his one-time L&D right replacement aid. He provides two spare earmolds to be retubed. HEARING AID CHECK: Right hearing aid measured to size on 's ear. Left hearing aid cleaned and checked. 2 spare earmolds retubed. Listening inspection revealed both devices were working well. User settings restored. PLAN/RECOMMENDATION(S): 1. RTC on 06/07/23 at 8AM for an updated hearing test. * Patient Education Education provided on the following topics: Hearing aids Education provided to: P Response to Education: VU Ramirez Patient P Family F Significant Other SO Verbalizes Understanding VU Returns Demonstration RD Performs Independently PI Lacks Comprehension LC Refused Education RE Not Applicable NA * /jac/ ALISA [place] STAFF CHILD CARE DEVELOPMENT SPECIALIST Signed: 05/24/2023 09:52 Receipt Acknowledged By: 05/24/2023 11:02 /jac/ ROCHELLE KERR Advanced Breakfast Hostess FRANKY BRUCE [facility]
--- OUTSIDE RECORDS SUMMARY | 2024-05-20 08:38 | XMS_ITS | Encounter Summary ---
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 Helper Name Role Phone KRISTOPHER MAXWELL Primary Care [...] PRESCRIPT ION [id number] 1 May 28, 2017 [id number] Weston MAK PATIENT [place] PRESCRIPT ION [id number] 1 May 28, 2017 [id number] Weston MAK PATIENT OPTUM RX PRESCRIPT ION RX May 28, 2022 THPRX [id number] [phone] Weston MAKM PATIENT [facility] May 28, 2017 [facility] [id number] 07 Weston MAKM PATIENT [facility] PL[facility] ALLEGRA [place] May 28, 2017 [facility] [id number] Weston MAK PATIENT [facility] VERÓNICA RE(WN R) May 28, 2017 (WNR) [id number] Weston MAK PATIENT [facility] (WNR) HMO May 28, 2014 [id number] Weston MAK PATIENT Selected Encounter This section includes the information on record at NH for the Encounter. Date/Time Encounter Type Encounter Description Reason Provider Source Aug 17, 2023 01:30 PM OFFICE O/P EST HI 40 MIN PRIMARY CARE/MEDICINE ICD-10-CM E78.5 Hyperlipidemia, unspecified SMALL,LOKESH Bailon Sergey Encounter Template Text not used by NH Assessments - Encounter Diagnoses This section includes the primary and secondary diagnoses documented for the Encounter. Date/Time Primary/Secondary Diagnosis Diagnosis Name Provider Source Aug 17, 2023 04:36 PM PRIMARY Hyperlipidemia, unspecified SMALLLOKESH [place] Aug 17, 2023 04:36 PM SECONDARY Benign prostatic hyperplasia with lower urinary tract symp SMALLLOKESH [place] Aug 17, 2023 04:36 PM SECONDARY Impaired fasting glucose LOKESH SMALL [place] Aug 17, 2023 04:36 PM SECONDARY Low back pain, unspecified SMALLLOKESH [place] Aug 17, 2023 04:36 PM SECONDARY Male erectile dysfunction, unspecified SMALLLOKESH [place] Aug 17, 2023 04:36 PM SECONDARY Morbid (severe) obesity due to excess calories LOKESH SMALL [place] Aug 17, 2023 04:36 PM SECONDARY Tinnitus, unspecified ear SMALLLOKESH [place] Aug 17, 2023 04:36 PM SECONDARY Unspecified hearing loss, left ear SMALL,LOKESH Bailon [place] Aug 17, 2023 04:36 PM SECONDARY Unspecified hearing loss, unspecified ear SMALL,LOKESH Bailon [place] Plan of Treatment: Future Appointments (+ 6 months) and Future Tests (+/- 45 days) The Plan of Treatment section includes future care activities for the patient from all VA treatmentfacilities. This section includes future appointments and future orders which are active, pending or scheduled. Future Appointments This section includes appointments that were scheduled to occur 6 months from the date of the Encounter, up to a maximum of 20 appointments. The data comes from all [place] treatment facilities. Appointment Date/Time Appointment Type Appointme nt Facility Name Aug 24, 2023 11:00 AM [facility]ULATORY [facility] Aug 28, 2023 10:00 AM [facility]ULATORY [facility] Aug 31, 2023 09:00 AM AMBULATORY - MEDIC[facility] Aug 31, 2023 10:00 AM AMBULATORY - REHAB MEDICIN E [facility] Sep 07, 2023 10:00 AM AMBULATORY - MEDIC[facility] Sep 14, 2023 10:00 AM AMBULATORY [facility] MEDIC[facility] Sep 21, 2023 10:30 AM AMBULATORY [facility] MEDIC[facility] [place] September 28, 2023 08:30 AM AMBULATORY - MEDIC[facility] [place] October 01, 2023 09:00 AM AMBULATORY - REHAB MEDICIN E [facility] [place] October 11, 2023 02:30 PM [facility] October 19, 2023 08:30 AM AMBULATORY - MEDICINE [facility] [place] Nov 13, 2023 01:30 PM AMBULATORY - MEDICINE [facility] [place] Dec 14, 2023 11:30 AM AMBULATORY - MEDIC[facility] Dec 28, 2023 10:00 AM AMBULATORY [facility] MEDIC[facility] Jan 11, 2024 09:00 AM AMBULATORY - MEDICINE [facility] Jan 14, 2024 11:00 AM AMBULATORY - REHAB MEDICIN E [facility] [place] Feb 08, 2024 08:30 AM AMBULATORY - MEDICINE [facility] Social History: Smoking Status (Most current) and Tobacco Use (All prior to encounter date) This section includes the most current, and the historical, smoking and tobacco- related health factors from the VA facility where the Encounter took place. Current Smoking Status This section includes the most current smoking, or tobacco-related health factor, from the NH facility where the Encounter took place. Date/Time Current Smoking Status Comment Kaycee ity Nov 01, 2022 09:00 AM VA-TOBACCO FORMER USER [place] Tobacco Use History This section includes a history of the smoking, or tobacco-related health factors, that were collected on or before the date of the Encounter. The data comes from the NH facility where the Encounter took place. Date/Time Smoking Status/Tobacco Use Comment F acility Nov 01, 2022 09:00 AM VA-TOBACCO QUIT 15 YRS OR MORE [facility] Nov 03, 2021 02:00 PM VA-TOBACCO NEVER USED [place] October 19, 2020 09:00 AM VA-TOBACCO FORMER USER [place] October 19, 2020 09:00 AM VA-TOBACCO QUIT 15 YRS OR MORE [place] Aug 16, 2018 12:32 PM VA-TOBACCO NEVER USED [place] Aug 16, 2017 02:32 PM QUIT TOBACCO USE > 7 YEARS AGO stopped smoking over 25 years ago [place] Aug 15, 2016 09:59 AM QUIT TOBACCO USE > 7 YEARS AGO quit 25 years ago [place] Aug 13, 2015 02:47 PM QUIT TOBACCO USE > 7 YEARS AGO smoked cig, ~20/day, quit 20 yrs ago [place] Aug 10, 2014 01:28 PM QUIT TOBACCO USE > 7 YEARS AGO quit 20+ yrs ago [facility] Advance Directives: All historical and current Section Date Range: From patient's date of to the date document was created. This section includes ALL of a patient's completed or amended NH Advance and Rescinded Directives. The entries below indicate that a directive exists for the patient, but an actual copy is not included with this document. The data comes from all [facility]. Date Advance Directives Provider Source Dec 02, 2020 ADVANCE DIRECTIVE ZAIRE COMER [facility] [place] Encounter Notes: All associated encounter notes This section contains the clinical notes associated to the Encounter. Date/Time Encounter Note(s) Provider Source Aug 21, 2023 03:13 PM ACCOUNTING OF DISC LOSURES NOTE: LOCAL TITLE: STATE PRESCRIPTION DRUG MONITORING PROGRAM STANDARD TITLE: ACCOUNTING OF DISCLOSURES NOTE DATE OF NOTE: AUG 21, 2023@15:13:41 ENTRY DATE: AUG 21, 2023@15:13:41 AUTHOR: IHSAN MOSES EXP COSIGNER: URGENCY: STATUS: COMPLETED STATE PRESCRIPTION DRUG MONITORING PROGRAM Has ADDENDA This PDMP query was submitted by Ihsan Moses MD. The clinical justification for this PDMP query is to review controlled substances prescribed outside of the VA, and any additional information that may become available, as an important component of standard clinical care, and in accordance with [facility] policy. Patient information was shared with the PDMP Appriss Weed. Prescription(s) filled outside the VA in the last 90 days are noted. However, they do not raise significant safety concerns and do not influence the treatment plan at this time. 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 07/26/2023 2 07/26/2023 Oxycodone-Acetaminophen 5-325 40.00 5 Da Kaylen [id number] [facility] ([id number]) 0/0 60.00 [place] 07/13/2023 2 07/13/2023 Oxycodone-Acetaminophen 5-325 40.00 3 Da Kaylen [id number] [facility] ([id number]) 0/0 100.00 [place] 06/13/2023 2 06/12/2023 Gabapentin 600 Mg Tablet 270.00 [address] [place] [id number] [facility] (8260) 0/0 [place] 03/08/2023 1 03/06/2023 Gabapentin 600 Mg Tablet 270.00 [place] [id number] [facility] (8260) 0/0 [place] 11/01/2022 1 07/12/2022 Gabapentin 600 Mg Tablet 270.00 90 [facility] [id number] Bishnu ([id number]) / [place] 07/25/2022 2 07/12/2022 Gabapentin 600 Mg Tablet 270.00 90 [facility] [id number] Bishnu (8272) 0/1 [place] 05/04/2022 2 05/01/2022 Gabapentin 600 Mg Tablet 270.00 [address] [place] [id number] [facility] (8272) 0/0 [place] 02/06/2022 1 02/02/2022 Gabapentin 600 Mg Tablet 270.00 [address] [place] [id number] [facility] ([id number]) 0/0 [place] /jac/ IHSAN MOSES MD PHYSICIAN Signed: 08/21/2023 15:13 IHSAN MOSES [place] Aug 17, 2023 02:19 PM PHYSICIAN NOTE: LOCAL TITLE: MD NOTE STANDARD TITLE: PHYSICIAN NOTE DATE OF NOTE: AUG 17, 2023@14:19 ENTRY DATE: AUG 17, 2023@14:19:04 AUTHOR: LOKESH SMALL EXP COSIGNER: URGENCY: STATUS: COMPLETED PRIMARY CARE VISIT TEODORA MAK, is a 68 yo WHITE MALE who [facility] the [facility]. TYPE OF VISIT: Face to face CHART REVIEWED, PATIENT EXAMINED. HPI: LBP s/p surgery x 2, last done 5-6 years ago s/p right shoulder surgery x 1 month right rotator repair wants to have his back pain treated here at the [facility] reviewed labs has elev choles 10 year risk is approx 10% patient wants to work on diet and exercise prostate is stable denies cardiopulm symptoms Most Recent labs reviewed and all medications were reconciled during this visit. Service Connection/Rated Disabilities: Service Connected Disabilities with % Eligibility: SERVICE CONNECTED 50% to 100% VERIFIED Total S/C %: 70 PARALYSIS OF MEDIAN NERVE 10% S/C NEUROSIS, DYSTHYMIC DISORD 10% S/C NEURALGIA OF SCIATIC NERVE 20% S/C LIMITED MOTION OF ANKLE 10% S/C PARALYSIS OF MEDIAN NERVE 10% S/C DIVERTICULITIS, A BOWEL CONDITION 0% S/C BACK STRAIN 0% S/C 2ND DEGREE SCHROEDER 0% S/C PARALYSIS OF SCIATIC NERVE 20% S/C SPINAL STENOSIS 20% S/C HEALTHCARE PROVIDERS: Switch PCP to [facility] Urology: Dr Ruiz Cardiology: Dr. David GI: Dr. Mendoza Ortho: Dr. De La Cruz SOCIAL HISTORY: MARITAL STATUS - Tobacco use/history -nonsmoker Alcohol use/history -moderate - 2 beers 2x per week Drug use/history - none HISTORY: PERIOD OF SERVICE - [facility] [employer] FROM Jun TO Jun COMBAT SERVICE INDICATED: No VITAL SIGNS: Temperature 97.7 F [36.5 C] (11/01/2022 09:14) Blood Pressure 109/64 (11/01/2022 09:14) Pulse 87 (11/01/2022 09:14) Respiration 18 (11/01/2022 09:14) Pain 7 (11/01/2022 09:14) BMI BMI: 37.2 Weight 274 lb [124.28 kg] (11/01/2022 09:14) Pulse Oximetry 98% (11/01/2022 09:14) ASSISTIVE DEVICES: REVIEW OF SYSTEMS: All systems are reviewed and are otherwise negative, unless specified in the HPI. PHYSICAL EXAMINATION: General: Well-appearing, in no obvious distress. Mental Status: Alert and oriented x 3. Head: Normocephalic, atraumatic. Eyes: PERRL. EOMI. Anicteric sclerae. ENT: Moist oral mucosa. dentition Neck: Supple. FROM. No JVD. No LAD. No bruit. Thyroid unremarkable. Lungs: CTAB. Normal chest excursion. Eupneic respirations. CV: Heart tones S1, S2. RRR. No M/G/R. No peripheral edema GI: Abdomen is soft and nontender. No palpable mass or organomegaly. Ext: No cyanosis or clubbing. No gross deformities. Neuro: CN II through XII grossly intact. Normal speech. Normal gait. Integument: Skin warm and dry. No rashes or lesions on visible areas. Psych: Normal mood and affect. Normal judgment. Cooperative with exam, follows commands. ALLERGIES: DIPHENHYDRAMINE HEALTH MAINTENANCE PREVENTIVE MEDICINE GOALS Follow Up Colonoscopy Nov 16 Medication Reconciliation DUE NOW COVID-19 Immunization DUE NOW Eye Care At-Risk Eval (Provider) DUE NOW ASSESSMENT/PLAN: Active problems - Computerized Problem List is the source for the followin. Hyperlipidemia ([facility] [id number])- mildly increased risk 10 year CVD risk is approx 10% start baby asa EC in am 2. Impaired Fasting Glucose ([facility] [id number])- mild encouraged to decrease carbs in diet 3. Erectile Dysfunction ([facility] [id number])- stable, followed by Urology 4. Low back pain-chronic long discussion regarding options at NH He's requesting ref to Pain Managment 7. TINNITUS AND HEARING LOSS- daily issue hearing aids don't help with the tinnitus 17. BPH-f/u Urology 18. Morbid obesity- hard to exercise due to back pain focus on healthy diet Total time I spent on this visit was 40 minutes and included a review of chart, labs, notes, physical exam and discussion/education of patient. LAB ORDERS FOR NEXT VISIT: NURSING: PLEASE ORDER APPROPRIATE CHRONIC DISEASE LAB ORDERS FOLLOW UP: Return to clinic as noted below and/or sooner PRN UPCOMING APPOINTMENTS: 10/01/2023 09:00 CWM NO AUDIO MAINT All medications were reconciled during this visit. No barriers noted; patient understands and agrees to current treatment plan. If patient has any questions, concerns or changes in current health status he/she will call or come in to the VA. PACT TEAM INSTRUCTIONS: Follow Up Colonoscopy: Colonoscopy is due based on information available to this reminder. Patient has arranged or is choosing to arrange a Colonoscopy independent of and w/out assistance from this VA. done last November 2022 A colonoscopy has been completed elsewhere and we are waiting for results. Dr. Mendoza at [facility], done November 2022 Medication Reconciliation: Outpatient: Has the patient been taking medications as documented in the EMLR? No: Discrepencies were identified. See below. Essential Medication List for Review used to complete this medication reconciliation. INCLUDED IN THIS LIST: Alphabetical list of active outpatient prescriptions dispensed from this VA (local) and dispensed from another VA or [facility] facility (remote) as well as inpatient orders (local, pending and active), local clinic medications, locally documented non-VA medications, and local prescriptions that have or been discontinued in the past 90 days. - Discrepancies were identified, addressed, and discussed with the patient/caregiver at this encounter. Discrepancies: I'll have to call you with the new meds per patient - All changes in medications, including all non-VA/Herbal/OTC medications were entered into CPRS. - If there were any medications the patient should no longer take, they were discontinued. - The patient/caregiver was instructed to update this list, discard old lists, and take this list to the next appointment, whether with a VA or non-VA provider. Eye Care At-Risk Eval (Provider) : Patient identified to be at risk for the following eye condition(s): MACULAR DEGENERATION: Macular Degeneration Risk Factors Information: Reminder Term: VA-AMD RISK FACTORS Encounter Diagnosis: 11/03/2021@14:00 E66.01 (ICD-10-CM) Morbid (Severe) Obesity due to Excess Calories rank: SECONDARY Prov. Narr. - Morbid obesity ([facility] [id number]) Provider educated patient on potential risk of permanent vision loss and recommendation to obtain eye care assessment. Patient verbalized understanding and No Referral Ordered: Eye exam completed elsewhere by an Clay Dry Press Helper or Joinery Setter Out Exam Information: Date: May 29, 2023 Findings/Comment Shayne Wise Clay Dry Press Helper Location: Outside Healthcare Provider // LOKESH SMALL MD PHYSICIAN Signed: 08/17/2023 16:36 LOKESH SMALL Aug 17, 2023 01:51 PM PREVENTIVE MEDICIN E NURSING NOTE: LOCAL TITLE: CLINICAL REMINDERS/NURSING STANDARD TITLE: PREVENTIVE MEDICINE NURSING NOTE DATE OF NOTE: AUG 17, 2023@13:51 ENTRY DATE: AUG 17, 2023@13:51:28 AUTHOR: SALVATORE GILMORE EXP COSIGNER: URGENCY: STATUS: COMPLETED BMI>30/>24.99 High Risk: At this visit, the health risks of obesity were reviewed and discussed with the , and the benefits of a weight management treatment program, such as MOVE! was discussed and offered to the . After discussing the health risks of being overweight or obese and providing information about available weight management treatment, and offering a referral to [facility]OVE or another weight management treatment program outside the NH, the patient DECLINES REFERRAL to MOVE or any other weight management treatment program at this time. Homelessness/Food Insecurity Screen: In the past 2 months, have you been living in stable housing that you own, rent, or stay in as part of a household? Yes - Living in stable housing. Are you worried or concerned that in the next 2 months you may NOT have stable housing that you own, rent, or stay in as part of a household? No - Not worried about housing near future The reports the following: Within the past 12 months, you worried whether your food would run out before you got money to buy more. Never true Within the past 12 months, the food you bought just didn't last and you didn't have money to get more. Never true Follow Up Colonoscopy: Colonoscopy is due based on information available to this reminder. A colonoscopy has been completed elsewhere and we are waiting for results. Depression Screening: Perform PHQ-2 A PHQ-2 screen was performed. The score was 0 which is a negative screen for depression. Over the past two weeks, how often have you been bothered by the following problems? 1. Little interest or pleasure in doing things Not at all 2. Feeling down, depressed, or hopeless Not at all PTSD Screening: PC-PTSD-5 A PTSD screening test (PC-PTSD-5) was negative (score=0). IN THE PAST MONTH, have you ever had any experience that was so frightening, horrible or traumatic. For example: A serious accident or fire a physical or sexual assault or abuse An earthquake or flood A war Seeing someone be killed or seriously injured Having a loved one through homicide or suicide 1. Have you ever experienced this kind of event? NO 2. Had nightmares about the event(s) or thought about the event(s) when you did not want to? Response not required due to responses to other questions. 3. Tried hard not to think about the event(s) or went out of your way to avoid situations that reminded you of the event(s)? Response not required due to responses to other questions. 4. Been constantly on guard, watchful, or easily startled? Response not required due to responses to other questions. 5. [place] numb or detached from people, activities, or your surroundings? Response not required due to responses to other questions. 6. [place] guilty or unable to stop blaming yourself or others for the event(s) or any problems the event(s) may have caused? Response not required due to responses to other questions. The Med Rec will be completed by the PCP. Eye Care At-Risk Screen : Patient identified to be at risk for the following eye condition(s): MACULAR DEGENERATION: Macular Degeneration Risk Factors Information: Reminder Term: VA-AMD RISK FACTORS Encounter Diagnosis: 11/03/2021@14:00 E66.01 (ICD-10-CM) Morbid (Severe) Obesity due to Excess Calories rank: SECONDARY Prov. Narr. - Morbid obesity ([facility] [id number]) Action: No Referral Ordered: The patient declined/refused referral for Tele-Eye screening and Eye Clinic appointment. Comment: He is looking for a provider. RHS Screen: RHS Screen Environmental Check Upon inquiry, the individual reports that the environment is safe to proceed. Informed Consent to Screen and Document The individual consents to proceed with screening. The individual consents to documentation of responses. PRIMARY SCREEN: In the past 12 months, how often did a current or former intimate partner (e.g., boyfriend, girlfriend, , , sexual partner): 1. Scream or curse at you Never 2. Insult or talk down to you Never 3. Threaten you with harm Never 4. Physically hurt you Never 5. Force or pressure you to have sexual contact against your will, or when you were unable to say no Never ?? The HITS tool (items 1-4 above) is US copyright protected by Clarence Daly MD, and the user has full rights to use it throughout the VA system. PRIMARY SCREEN RESULT: The Primary Screen is NEGATIVE. The individual answered never to all forms of IPV above (i.e., answered never to all 5 items) The individual accepts education and/or resources: Yes - Offered verbal universal education about IPV EDUCATION: The individual indicated readiness to learn. Education offered during this session as noted above. The individual indicated understanding by asking relevant questions and making appropriate comments. No barriers to learning were observed or identified. /jac/ SALVATORE GILMORE LPN LICENSED PRACTICAL NURSE Signed: 08/17/2023 13:59 SALVATORE GILMORE [facility] Aug 10, 2023 09:42 AM ADMINISTRATIVE NOT E: LOCAL TITLE: ADMINISTRATIVE NOTE STANDARD TITLE: ADMINISTRATIVE NOTE DATE OF NOTE: AUG 10, 2023@09:42 ENTRY DATE: AUG 10, 2023@09:42:15 AUTHOR: DEAN ARBOLEDA EXP COSIGNER: URGENCY: STATUS: COMPLETED ADMINISTRATIVE NOTE Has ADDENDA [facility] [address] [place] [id number] [phone] * TEODORA MAK [address] [place] [id number] Date: AUG 10, 2023 re: This is a reminder of your upcoming PCP appt with LOKESH SMALL. Appointment Date: Jul@13:30 Appointment Type: In-person visit Fasting blood work NON fasting blood work LEFT MESSAGE ON VOICEMAIL TO CONFIRM. NEED OUTSIDE PROVIDERS IF ANY HE HAS SEEN FOR PAIN Sincerely, Office Staff for: LOKESH SMALL Primary Care Provider [facility] [address] [place] [id number] T [phone] F [phone] Upcoming Appointments: 08/17/2023 13:30 CWM/SO/PACT 2 APPOINTMENT ABBREVIATION ALMEIDA (SPOPC OR SO = [facility], [facility]) (GOPC OR GO = [place], [facility]) (NHM or NO = [facility]) (VVC - Video Call) (Tel-X Telephone Visit) (TH - Telehealth) /jac/ DEAN TRACY Signed: 08/10/2023 09:43 08/13/2023 ADDENDUM STATUS: COMPLETED left message that he see's Jeff Otero MD for pain Records requested from Provider SAUL /jac/ DEAN TRACY Signed: 08/13/2023 13:28 DEAN ARBOLEDA
--- OUTSIDE RECORDS SUMMARY | 2024-05-20 08:38 | XMS_ITS | Continuity of Care Document ---
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 and 20 is very dilute. Urine with SG of 1.001 or less is diluted or substituted . SG of 1.003 or less is very dilute. Urine with a pH <3 or >11 has been adulterated and is unsuitable for testing by our current method. Urine with pH between 3 and 4 OR 10 and 11 may have been adulterated . Ordering Provider: RACH MCNAMARA S Report Released Date/Time: Dec 14, 2023 11:59 AM Reporting Lab: [facility]PITALRMARY [facility] CENTERTRN [facility]PITALUSETS [address] [address] Performing Lab: [facility] [address] [facility] [address] [facility] BUPRENORP ZULEYMA SCREEN PANEL CREATININE [MASS/VOLUM E] IN URINE 84.74 mg/dL 12/13 Specimen Type: URINE Comment: Urine with Cr <5 is diluted or substituted . Cr between 5 and 20 is very dilute. Urine with SG of 1.001 or less is diluted or substituted . SG of 1.003 or less is very dilute. Urine with a pH <3 or >11 has been adulterated and is unsuitable for testing by our current method. Urine with pH between 3 and 4 OR 10 and 11 may have been adulterated . Ordering Provider: RACH MCNAMARA Report Released Date/Time: Dec 14, 2023 11:59 AM Reporting Lab: [address] [address] Performing Lab: [address] [address] [facility] BUPRENORP ZULEYMA SCREEN PANEL SPECIFIC GRAVITY OF URINE 1.011 1.003 - 1.020 12/13 Specimen Type: URINE Comment: Urine with Cr <5 is diluted or substituted . Cr between 5 and 20 is very dilute. Urine with SG of 1.001 or less is diluted or substituted . SG of 1.003 or less is very dilute. Urine with a pH <3 or >11 has been adulterated and is unsuitable for testing by our current method. Urine with pH between 3 and 4 OR 10 and 11 may have been adulterated . Ordering Provider: RACH MCNAMARA Report Released Date/Time: Dec 14, 2023 11:59 AM Reporting Lab: [address] [address] Performing Lab: [address] [address] [facility] CANNABINO IDS SCREEN PANEL CANNABINOID S [PRESENCE] IN URINE BY SCREEN METHOD NONE-D ETECTE D - 50 12/13 Specimen Type: URINE Comment: Urine with Cr <5 is diluted or substituted . Cr between 5 and 20 is very dilute. Urine with SG of 1.001 or less is diluted or substituted . SG of 1.003 or less is very dilute. Urine with a pH <3 or >11 has been adulterated and is unsuitable for testing by our current method. Urine with pH between 3 and 4 OR 10 and 11 may have been adulterated . Ordering Provider: RACH MCNAMARA Report Released Date/Time: Dec 14, 2023 11:59 AM Reporting Lab: [facility]OSPITALRMARY [facility] CENTERTRN [place] [address] [address] Performing Lab: [facility]ITALN [address] [address] [facility] CANNABINO IDS SCREEN PANEL PH OF URINE 5.8 [pH] 4 - 10 12/13 Specimen Type: URINE Comment: Urine with Cr <5 is diluted or substituted . Cr between 5 and 20 is very dilute. Urine with SG of 1.001 or less is diluted or substituted . SG of 1.003 or less is very dilute. Urine with a pH <3 or >11 has been adulterated and is unsuitable for testing by our current method. Urine with pH between 3 and 4 OR 10 and 11 may have been adulterated . Ordering Provider: RACH MCNAMARA Report Released Date/Time: Dec 14, 2023 11:59 AM Reporting Lab: [facility]OSPITALRMARY [facility] CENTERTRN [facility]PITALUSE[address] [address] Performing Lab: [facility]ITALN [address] [address] [facility] CANNABINO IDS SCREEN PANEL CREATININE [MASS/VOLUM E] IN URINE 84.74 mg/dL 12/13 Specimen Type: URINE Comment: Urine with Cr <5 is diluted or substituted . Cr between 5 and 20 is very dilute. Urine with SG of 1.001 or less is diluted or substituted . SG of 1.003 or less is very dilute. Urine with a pH <3 or >11 has been adulterated and is unsuitable for testing by our current method. Urine with pH between 3 and 4 OR 10 and 11 may have been adulterated . Ordering Provider: RACH MCNAMARA Report Released Date/Time: Dec 14, 2023 11:59 AM Reporting Lab: [place] [facility] [place] [facility] [address] [facility] [address] Performing Lab: [place] [facility] [place] [facility] [address] [facility] [address] [facility] HOSPITALRL WSTRN [place] [facility] CANNABINO IDS SCREEN PANEL SPECIFIC GRAVITY OF URINE 1.011 1.003 - 1.020 12/13 Specimen Type: URINE Comment: Urine with Cr <5 is diluted or substituted . Cr between 5 and 20 is very dilute. Urine with SG of 1.001 or less is diluted or substituted . SG of 1.003 or less is very dilute. Urine with a pH <3 or >11 has been adulterated and is unsuitable for testing by our current method. Urine with pH between 3 and 4 OR 10 and 11 may have been adulterated . Ordering Provider: RACH MCNAMARA Report Released Date/Time: Dec 14, 2023 11:59 AM Reporting Lab: [place] [facility] [place] [address] [address] Performing Lab: [place] [facility] [place] [address] [address] [facility]OSPITALRLAMAR REGIONAL HOSPITALN [facility]OSPITALUSE [facility] COCAINE SCREEN PANEL COCAINE [PRESENCE] IN URINE BY SCREEN METHOD NONE-D ETECTE D - 300 12/13 Specimen Type: URINE Comment: Urine with Cr <5 is diluted or substituted . Cr between 5 and 20 is very dilute. Urine with SG of 1.001 or less is diluted or substituted . SG of 1.003 or less is very dilute. Urine with a pH <3 or >11 has been adulterated and is unsuitable for testing by our current method. Urine with pH between 3 and 4 OR 10 and 11 may have been adulterated . Ordering Provider: RACH MCNAMARA Report Released Date/Time: Dec 14, 2023 11:59 AM Reporting Lab: [facility] [place] [facility] [address] [facility] [address] Performing Lab: [place] [facility]ITALCH[facility] [address] [address] [facility]OSPITALRL TRN [facility] COCAINE SCREEN PANEL PH OF URINE 5.8 [pH] 4 - 10 12/13 Specimen Type: URINE Comment: Urine with Cr <5 is diluted or substituted . Cr between 5 and 20 is very dilute. Urine with SG of 1.001 or less is diluted or substituted . SG of 1.003 or less is very dilute. Urine with a pH <3 or >11 has been adulterated and is unsuitable for testing by our current method. Urine with pH between 3 and 4 OR 10 and 11 may have been adulterated . Ordering Provider: RACH MCNAMARA S Report Released Date/Time: Dec 14, 2023 11:59 AM Reporting Lab: [facility] [employer] [address] Performing Lab: [facility] [employer] [address] [facility] COCAINE SCREEN PANEL CREATININE [MASS/VOLUM E] IN URINE 84.74 mg/dL 12/13 Specimen Type: URINE Comment: Urine with Cr <5 is diluted or substituted . Cr between 5 and 20 is very dilute. Urine with SG of 1.001 or less is diluted or substituted . SG of 1.003 or less is very dilute. Urine with a pH <3 or >11 has been adulterated and is unsuitable for testing by our current method. Urine with pH between 3 and 4 OR 10 and 11 may have been adulterated . Ordering Provider: RACH MCNAMARA Report Released Date/Time: Dec 14, 2023 11:59 AM Reporting Lab: [facility] [employer]-Mutuel ServicesUSE[address] [address] Performing Lab: [facility] [employer] [address] [facility] COCAINE SCREEN PANEL SPECIFIC GRAVITY OF URINE 1.011 1.003 - 1.020 12/13 Specimen Type: URINE Comment: Urine with Cr <5 is diluted or substituted . Cr between 5 and 20 is very dilute. Urine with SG of 1.001 or less is diluted or substituted . SG of 1.003 or less is very dilute. Urine with a pH <3 or >11 has been adulterated and is unsuitable for testing by our current method. Urine with pH between 3 and 4 OR 10 and 11 may have been adulterated . Ordering Provider: RACH MCNAMARA Report Released Date/Time: Dec 14, 2023 11:59 AM Reporting Lab: [place] [facility] [place] [facility] [address] [facility] [address] Performing Lab: [facility] HOSPITALRL TRN [facility]OSPITALUSETS [address] [address] [facility]N [facility] OPIATES SCREEN PANEL OPIATES [PRESENCE] IN URINE BY SCREEN METHOD NONE-D ETECTE D - 300 12/13 Specimen Type: URINE Comment: Urine with Cr <5 is diluted or substituted . Cr between 5 and 20 is very dilute. Urine with SG of 1.001 or less is diluted or substituted . SG of 1.003 or less is very dilute. Urine with a pH <3 or >11 has been adulterated and is unsuitable for testing by our current method. Urine with pH between 3 and 4 OR 10 and 11 may have been adulterated . Ordering Provider: RACH MCNAMARA Report Released Date/Time: Dec 14, 2023 11:59 AM Reporting Lab: [facility]ITALRL TRN [place] [address] [address] Performing Lab: [facility]OSPITALRMARY [facility] CENTERTRN [facility]PITALUSETS [address] [address] [facility] OPIATES SCREEN PANEL PH OF URINE 5.8 [pH] 4 - 10 12/13 Specimen Type: URINE Comment: Urine with Cr <5 is diluted or substituted . Cr between 5 and 20 is very dilute. Urine with SG of 1.001 or less is diluted or substituted . SG of 1.003 or less is very dilute. Urine with a pH <3 or >11 has been adulterated and is unsuitable for testing by our current method. Urine with pH between 3 and 4 OR 10 and 11 may have been adulterated . Ordering Provider: RACH MCNAMARA Report Released Date/Time: Dec 14, 2023 11:59 AM Reporting Lab: [facility]ITALRL TRN [place] [facility] [address] [facility] [address] Performing Lab: [facility] HOSPITALRL TRN [address] [address] [facility] OPIATES SCREEN PANEL CREATININE [MASS/VOLUM E] IN URINE 84.74 mg/dL 12/13 Specimen Type: URINE Comment: Urine with Cr <5 is diluted or substituted . Cr between 5 and 20 is very dilute. Urine with SG of 1.001 or less is diluted or substituted . SG of 1.003 or less is very dilute. Urine with a pH <3 or >11 has been adulterated and is unsuitable for testing by our current method. Urine with pH between 3 and 4 OR 10 and 11 may have been adulterated . Ordering Provider: RACH MCNAMARA Report Released Date/Time: Dec 14, 2023 11:59 AM Reporting Lab: [address] [address] Performing Lab: [address] [address] [facility] OPIATES SCREEN PANEL SPECIFIC GRAVITY OF URINE 1.011 1.003 - 1.020 12/13 Specimen Type: URINE Comment: Urine with Cr <5 is diluted or substituted . Cr between 5 and 20 is very dilute. Urine with SG of 1.001 or less is diluted or substituted . SG of 1.003 or less is very dilute. Urine with a pH <3 or >11 has been adulterated and is unsuitable for testing by our current method. Urine with pH between 3 and 4 OR 10 and 11 may have been adulterated . Ordering Provider: RACH MCNAMARA Report Released Date/Time: Dec 14, 2023 11:59 AM Reporting Lab: [address] [address] Performing Lab: [address] [address] [facility] OXYCODONE SCREEN PANEL OXYCODONE [PRESENCE] IN URINE BY SCREEN METHOD NONE-D ETECTE D - 100 12/13 Specimen Type: URINE Comment: Urine with Cr <5 is diluted or substituted . Cr between 5 and 20 is very dilute. Urine with SG of 1.001 or less is diluted or substituted . SG of 1.003 or less is very dilute. Urine with a pH <3 or >11 has been adulterated and is unsuitable for testing by our current method. Urine with pH between 3 and 4 OR 10 and 11 may have been adulterated . Ordering Provider: RACH MCNAMARA Report Released Date/Time: Dec 14, 2023 11:59 AM Reporting Lab: [facility]ITALRMARY [facility] CENTERTRN [place] [address] [address] Performing Lab: [facility]ITALRMARY [facility] CENTERTRN [facility]ITALUSE[address] [address] [facility]PITALUSE [facility] OXYCODONE SCREEN PANEL PH OF URINE 5.8 [pH] 4 - 10 12/13 Specimen Type: URINE Comment: Urine with Cr <5 is diluted or substituted . Cr between 5 and 20 is very dilute. Urine with SG of 1.001 or less is diluted or substituted . SG of 1.003 or less is very dilute. Urine with a pH <3 or >11 has been adulterated and is unsuitable for testing by our current method. Urine with pH between 3 and 4 OR 10 and 11 may have been adulterated . Ordering Provider: RACH MCNAMARA Report Released Date/Time: Dec 14, 2023 11:59 AM Reporting Lab: [facility]ITALRMARY [facility] CENTERTRN [facility]ITALUSE[address] [address] Performing Lab: [facility]ITALRMARY [facility] PS[facility]IATRY CENTERTRN [address] [address] [facility] OXYCODONE SCREEN PANEL CREATININE [MASS/VOLUM E] IN URINE 84.74 mg/dL 12/13 Specimen Type: URINE Comment: Urine with Cr <5 is diluted or substituted . Cr between 5 and 20 is very dilute. Urine with SG of 1.001 or less is diluted or substituted . SG of 1.003 or less is very dilute. Urine with a pH <3 or >11 has been adulterated and is unsuitable for testing by our current method. Urine with pH between 3 and 4 OR 10 and 11 may have been adulterated . Ordering Provider: RACH MCNAMARA Report Released Date/Time: Dec 14, 2023 11:59 AM Reporting Lab: [facility]ITALRL [facility]N [place] [facility] [address] [facility] [address] Performing Lab: [facility]ITALRMARY [facility] PS[facility] CENTERTRN [facility]OSPITALCHUSETS [facility] [address] [facility] [address] [facility]ITALRMARY [facility] PS[facility]CHIATRY CENTERTRN [place] [facility] OXYCODONE SCREEN PANEL SPECIFIC GRAVITY OF URINE 1.011 1.003 - 1.020 12/13 Specimen Type: URINE Comment: Urine with Cr <5 is diluted or substituted . Cr between 5 and 20 is very dilute. Urine with SG of 1.001 or less is diluted or substituted . SG of 1.003 or less is very dilute. Urine with a pH <3 or >11 has been adulterated and is unsuitable for testing by our current method. Urine with pH between 3 and 4 OR 10 and 11 may have been adulterated . Ordering Provider: RACH MCNAMARA Report Released Date/Time: Dec 14, 2023 11:59 AM Reporting Lab: [facility]OSPITALRLAMAR REGIONAL HOSPITALN [facility]ITALUSE[address] [address] Performing Lab: [facility]OSPITALRLAMAR REGIONAL HOSPITALN [facility]ITALUSE[address] [address] [facility]ITALRLAMAR REGIONAL HOSPITALN [facility]PITALUSE [facility] Encounters Combined list of: 1) Encounters from Department of Veterans Affairs facilities going back up to thelast 18 months. 2) Encounters from the Department of Defense facilities going back up to 280 months. Location Location Details Encounter Type Encounter Number Reason For Visit Attending Provider ADM Date DC Date Status Disposition Source [facility] [place] [facility] HEARING AID REPAIR/MOD IFYING [id number] Diagnos is: ICD-10- CM Z46.1 Encount er for fitting and adjustm ent of hearing aid<br/ > MICALEA ERAZO 11[facility]27 [facility] [place] [facility] [place] [facility] [place] AD[place] [id number] MICKY NEFF 02/09 [facility] [place] [facility] [place] [facility] BATTERY FOR HEARING DEVICE [id number] Diagnos is: ICD-10- CM Z46.1 Encount er for fitting and adjustm ent of hearing aid<br/ > Cinda GRANADOS 02[facility]13 [facility] En[facility] [id number] LEV SAMUEL DARRIAN 02/13 [facility] [place] [place] En[facility] [id number] 04/03 [facility] [place] [facility] [place] En[facility] [id number] 05/16 [facility] [place] [facility] [place] Encounter [id number] 05/17 [facility] [place] [place] HEARING AID REPAIR/MOD IFYING [id number] Diagnos is: ICD-10- CM Z46.1 Encount er for fitting and adjustm ent of hearing aid<br/ > ERIC BRUCE 05/24 [facility] [place] En[facility] [id number] 05/29 [facility] [place] [facility] [place] HEARING AID REPAIR/MOD IFYING [id number] Diagnos is: ICD-10- CM H90.3 Sensori neural hearing loss, bilater al
ERIC BRUCE 06/07 [facility] [place] CONFORMITY EVALUATION [id number] Diagnos is: ICD-10- CM Z46.1 Encount er for fitting and adjustm ent of hearing aid<br/ > ALBERT ROBERTSON L 07/06 [facility] [place] Out[facility] Encounter [id number] Diagnos is: ICD-10- CM Z02.89 Encount er for other adminis trative examina tions<b r/> AMANDABOBBYMICAELA HEBERT L 08/14 [facility] Encounter [id number] 08/16 [facility] [place] Encounter [id number] 08/16 [facility] [place] [place] OFFICE O/P EST HI 40 MIN [id number] Diagnos is: ICD-10- CM E78.5 Hyperli pidemia , unspeci fied
TAYLOR SMALL J 08/16 [place] [facility] En[facility] [id number] 08/21 [facility] [place] Encounter [id number] 08/22 [facility] [place] [place] MTMS BY PHARM ADDL 15 MIN [id number] Diagnos is: ICD-10- CM M54.50 Low back pain, unspeci fied
RICKY MCNAMARA 08/23 [facility] En[facility] [id number] 08/26 [facility] [place] [place] OFF[place]/P EST HI 40 MIN [id number] Diagnos is: ICD-10- CM G89.29 Other chronic pain
KUPFERSCHM ID,HUNG B 08/27 [facility] En[facility] [id number] 08/29 [facility] [place] MTMS BY PHARM ADDL 15 MIN [id number] Diagnos is: ICD-10- CM M54.50 Low back pain, unspeci fied
RICKY MCNAMARA 08/30 [facility] HEARING AID FITTING/CH ECKING [id number] Diagnos is: ICD-10- CM Z46.1 Encount er for fitting and adjustm ent of hearing aid<br/ > Cinda GRANADOS 08/30 [facility] [place] En[facility] [id number] 09/05 [facility] [place] MTMS BY PHARM ADDL 15 MIN [id number] Diagnos is: ICD-10- CM M54.50 Low back pain, unspeci fied
RICKY MCNAMARA S 09/06 [facility] En[facility] [id number] 09/06 [facility] [place] Encounter [id number] 09/12 [facility] [place] [place] MTMS BY PHARM ADDL 15 MIN [id number] Diagnos is: ICD-10- CM M54.50 Low back pain, unspeci fied
RICKY MCNAMARA S 09/13 [facility] En[facility] [id number] 09/19 [facility] [place] [place] MTMS BY PHARM ADDL 15 [place] [id number] Diagnos is: ICD-10- CM M54.50 Low back pain, unspeci fied
RICKY MCNAMARA S 09/20 [facility] En[facility] [id number] 09/24 [facility] Out[facility] Encounter [id number] 09/26 [facility] MTMS BY PHARM ADDL 15 MIN [id number] Diagnos is: ICD-10- CM M54.50 Low back pain, unspeci fied
RICKY MCNAMARA ROBEL S 09/27 [facility] Out[facility] Encounter [id number] 09/27 [facility] HEARING AID REPAIR/MOD IFYING [id number] Diagnos is: ICD-10- CM Z46.1 Encount er for fitting and adjustm ent of hearing aid<br/ > SENIOR,ALBERT OLE L 09/30 [facility] LD OFFICE O/P EST LOW 20 MIN [id number] Diagnos is: ICD-10- CM L84 Corns and callosi ties
DAWSON LEBRON F 10/10 [facility] Outpatient Encounter [id number] 10/17 [facility] MTMS BY PHARM ADDL 15 MIN [id number] Diagnos is: ICD-10- CM M54.50 Low back pain, unspeci fied
RICKY MCNAMARA S 10/18 [facility] OL DIG ASSMT&MGMT 5-10 [id number] Diagnos is: ICD-10- CM M54.50 Low back pain, unspeci fied
PRANAV VIRAMONTES 10/18 [facility] Out[facility] Encounter [id number] 11/11 [facility] MTMS BY PHARM ADDL 15 MIN [id number] Diagnos is: ICD-10- CM M54.50 Low back pain, unspeci fied
RICKY MCNAMARA S 11/12 [facility] Out[facility] Encounter [id number] 11/27 [facility] Out[facility] Encounter [id number] 12/03 [facility] Q[facility] OL DIG ASSMT&MGMT 5-10 [id number] Diagnos is: ICD-10- CM M54.50 Low back pain, unspeci fied
RICKY MCNAMARA S 12/03 [facility] Out[facility] Encounter [id number] 12/12 [facility] MTMS BY PHARM ADDL 15 MIN [id number] Diagnos is: ICD-10- CM M54.50 Low back pain, unspeci fied
RICKY MCNAMARA S 12/13 [facility] Out[facility] Encounter [id number] 12/13 [facility] Out[facility] Encounter [id number] 12/13 [facility] Out[facility] Encounter [id number] 12/25 [facility] MTMS BY PHARM ADDL 15 MIN [id number] Diagnos is: ICD-10- CM M54.50 Low back pain, unspeci fied
RICKY MCNAMARA S 12/27 [facility] Out[facility] Encounter [id number] 01/09 [facility] MTMS BY PHARM ADDL 15 MIN [id number] Diagnos is: ICD-10- CM M54.50 Low back pain, unspeci fied
RICKY MCNAMARA S 01/10 [facility] HEARING AID REPAIR/MOD IFYING [id number] 1. Diagnos is: ICD-10- CM Z46.1 Encount er for fitting and adjustm ent of hearing aid<br/ > ALBERT ROBERTSON 01/13 [facility] Out[facility] Encounter [id number] [facility] MTMS BY PHARM ADDL 15 MIN [id number] 1. Diagnos is: ICD-10- CM M54.50 Low back pain, unspeci fied
ANDERSRICKY MAHONEY S 02/07 [facility] [place] ADMIN [id number] Diagnos is: ICD-10- CM Z23 Encount er for immuniz ation<b r/> ASHU RIGGS 02/07 [facility] Outpatient Encounter [id number] 02/07 [facility] HC PRO PHONE CALL 5-10 MIN [id number] Diagnos is: ICD-10- CM G89.29 Other chronic pain
EMET,URSULA EEN 02/17 [facility] Outpatient Encounter [id number] [facility] MTMS BY PHARM ADDL 15 MIN [id number] Diagnos is: ICD-10- CM M54.50 Low back pain, unspeci fied
RICKY MCNAMARA S 02/25 [facility] Outpatient Encounter [id number] 03/20 [facility] MTMS BY PHARM ADDL 15 MIN [id number] 1. Diagnos is: ICD-10- CM M54.50 Low back pain, unspeci fied
RICKY MCNAMARA S 03/21 [facility] Outpatient Encounter [id number] 04/18 [facility] Outpatient Encounter [id number] 04/21 [facility] MTMS BY PHARM ADDL 15 MIN [id number] Diagnos is: ICD-10- CM M54.50 Low back pain, unspeci fied
RICKY MCNAMARA S 04/22 [facility] Outpatient Encounter [id number] 04/22 [facility] Social History Combined list of available smoking, tobacco, and other social history from Department of Defense and Veterans Affairs facilities. Social History Type Response Date Comment [facility] e Tobacco smoking status [facility] VA-TOBACCO QUIT 15 YRS OR MORE 11/01/2022 [place] History of tobacco use VA-TOBACCO FORMER USER 11/01/2022 [place] History of tobacco use [place] NEVER USED 11/[facility] History of tobacco use VA-TOBACCO FORMER USER 10/19/2020 [place] History of tobacco use [place]-TOBACCO NEVER USED 08/16/2018 [facility] History of tobacco use QUIT TOBACCO USE > 7 YEARS AGO 08/16/2017 stopped smoking over 25 years ago [place] History of tobacco use QUIT TOBACCO USE > 7 YEARS AGO 08/15/2016 quit 25 years ago [place] History of tobacco use QUIT TOBACCO USE > 7 YEARS AGO 08/13/2015 smoked cig, ~20/day, quit 20 yrs ago [place] History of tobacco use QUIT TOBACCO USE > 7 YEARS AGO 08/10/2014 quit 20+ yrs ago [place] This section is an empty social history section. [facility] Plan of Care List of future care activities from Department [facility] facilities. Additional future care activities may be listed in the Assessment and Plan section. Date/Time Care Activity Care Activity Detail Facili ty 05/23/2024 AMBULATORY - MEDICINE AM[facility]ULATORY - MEDICI [facility] 06/05/2024 AMBULATORY - MEDICINE AM[facility]ULATORY - MEDICI [facility] 06/05/2024 AMBULATORY - REHAB MEDICINE AMB[facility]ATORY - REH[facility] MEDICINE [facility] 08/21/2024 AMBULATORY - MEDICINE AMBULATORY - MEDICI [facility] Advance Directives List of completed, amended, or rescinded Advance Directives on record at [facility] facilities. An actual copy of the Directive is not included. Date Advance Directive Provider Source 12/02/2020 ADVANCE DIRECTIVE ZAIRE COMER
--- OUTSIDE RECORDS SUMMARY | 2024-05-20 08:39 | XMS_ITS | Encounter Summary ---
Author Name [facility] [place] [facility] [facility] [place] Address [address] [place] [address] Care Team Providers Care Mathematics Instructor Name Role Phone KRISTOPHER MAXWELL Primary Care Provider [facility] Insurance Providers: All historical and current Section [...] PRESCRIPT ION [id number] 1 May 28, 2017 [id number] [place] SNOWIAM PATIENT [place] PRESCRIPT ION RX730 1 May 28, 2017 [id number] [place] MAK ILLTAINAM PATIENT [employer] RX PRESCRIPT ION RX May 28, 2022 [id number] [phone] OBDULIO,[place] ILLIAM PATIENT [facility] PLAN ALLEGRA [place]in[place] May 28, 2017 [id number] [place] MAK ILLBIJAL PATIENT [facility] USP May 28, 2017 [facility] [id number] [phone] OBDULIO,W ILLIAM PATIENT [facility] (WNR) TRICA RE(WN R) May 28, 2017 (WNR) [id number] [phone] OBDULIO,W ILLIAKaren PATIENT [facility] (WNR) HMO May 28, 2014 [id number] [place] MAK PATIENT Selected Encounter This section includes the information on record at [place] for the Encounter. Date/Time Encounter Type Encounter Description Reason Pro vider Source Aug 17, 2023 12:00 AM Outpatient Encounter EVENT (HISTORICAL) IHE Encounter Template Text not used by [place] Plan of Treatment: Future Appointments (+ 6 months) and Future Tests (+/- 45 days) The Plan of Treatment section includes future care activities for the patient from all [place] treatmentfacilities. This section includes future appointments and future orders which are active, pending or scheduled. Future Appointments This section includes appointments that were scheduled to occur 6 months from the date of the Encounter, up to a maximum of 20 appointments. The data comes from all [place] treatment facilities. Appointment Date/Time Appointment Type Appointme nt Facility Name Aug 24, 2023 11:00 AM [facility] Aug 28, 2023 10:00 AM [facility] Aug 31, 2023 09:00 AM [facility] Aug 31, 2023 10:00 AM AMBULATORY - REHAB MEDICIN E [facility] Sep 07, 2023 10:00 AM [facility] Sep 14, 2023 10[facility]00 AM [facility] Sep 21, 2023 10:30 AM [facility] September 28, 2023 08:30 AM [facility] October 01, 2023 09:00 AM AMBULATORY - REHAB MEDICIN E [facility] October 11, 2023 02:30 PM [facility] October 19, 2023 08:30 AM [facility] [place] [facility] [facility] Nov 13, 2023 01:30 PM AM[facility]ULATORY [facility]IC[facility] Dec 14, 2023 11:30 AM [facility] Dec 28, 2023 10[facility]00 AM [facility] Jan 11[facility] 2024 09:00 AM [facility] [place] [facility] [facility] [place] [facility] Jan 14[facility] 2024 11:00 AM AMBULATORY - [facility]AB MEDICIN E [facility] Feb 08, 2024 08:30 AM [facility] [place] [facility] [place] Advance Directives: All historical and current Section Date Range: From patient's date of to the date document was created. This section includes ALL of a patient's completed or amended [place] Advance and Rescinded Directives. The entries below indicate that a directive exists for the patient, but an actual copy is not included with this document. The data comes from all [place] facilities. Date Advance Directives Provider Source Dec 02, 2020 ADVANCE DIRECTIVE ZAIRE COMER
--- OUTSIDE RECORDS SUMMARY | 2024-05-20 08:39 | XMS_ITS | Encounter Summary ---
Author Name [facility] [place] [facility] [place] Address [address] [place] [address] Care Team Providers Care Field Services Director Name Role Phone KRISTOPHER MAXWELL [facility] Insurance Providers: All historical and current [...] PRESCRIPT ION [id number] 1 May 28, 2017 [id number] [phone] Weston MAK PATIENT CAREMARK PRESCRIPT ION [id number] 1 May 28, 2017 [id number] OBDULIO,Weston MANSOORM PATIENT OPTUM RX PRESCRIPT ION RX May 28, 2022 THPRX [id number] OBDULIO,W ILLIAM PATIENT [facility] PLAN ALLEGRA Rincon May 28, 2017 [id number] OBDULIO,W ILLIAM PATIENT [facility] USP May 28, 2017 [facility] [id number] OBDULIO,W ILLIAM PATIENT [facility] (WNR) TRICA RE(WN R) May 28, 2017 (WNR) [id number] OBDULIO,W ILLIAM [facility]) HMO May 28, 2014 [id number] OBDULIO,W ILLIAM PATIENT Selected Encounter This section includes the information on record at [place] for the Encounter. Date/Time Encounter Type Encounter Description Reason Provider Source Aug 24, 2023 11:00 AM MTMS BY [facility] 15 MIN PAIN CLINIC ICD-10-CM M54.50 Low back pain, unspecified HEMAL MCNAMARA E Encounter Template Text not used by [place] Assessments - Encounter Diagnoses This section includes the primary and secondary diagnoses documented for the Encounter. Date/Time Primary/Secondary Diagnosis Diagnosis Name Provider Source Aug 24, 2023 11:51 AM PRIMARY Low back pain, unspecified HEMAL MCNAMARA [place] [facility] [place] [facility] Plan of Treatment: Future Appointments (+ 6 months) and Future Tests (+/- 45 days) The Plan of Treatment section includes future care activities for the patient from all [place] treatmentfacilities. This section includes future appointments and future orders which are active, pending or scheduled. Future Appointments This section includes appointments that were scheduled to occur 6 months from the date of the Encounter, up to a maximum of 20 appointments. The data comes from all [place] treatment facilities. Appointment Date/Time Appointment Type Appointme nt Facility Name Aug 28, 2023 10:00 AM AMBULATORY - MEDICINE [place] [facility] [place] [facility] Aug 31, 2023 09:00 AM AM[place]ULATORY [place]IC[place] [facility] [place] [facility] Aug 31, 2023 10:00 AM AMBULATORY - [place]ICIN [place] [facility] [place] [facility] Sep 07, 2023 10:00 AM AMBULATORY - [place]ICINE [place] [facility] [place] [facility] Sep 14, 2023 10:00 AM AMBULATORY - [place]ICINE [place] [facility] [place] [facility] Sep 21, 2023 10:30 AM AMBULATORY - MEDICINE [place] [facility] [place] [facility] September 28, 2023 08:30 AM AMBULATORY - MEDICINE [facility] [place] [facility] October 01, 2023 09:00 AM AMBULATORY - REHAB MEDICIN E [facility] [place] [facility] October 11, 2023 02:30 PM [facility] October 19, 2023 08:30 AM AMBULATORY - MEDICINE [facility] [place] [facility] Nov 13, 2023 01:30 PM AMBULATORY - MEDICINE [facility] [place] [facility] Dec 14, 2023 11:30 AM AMBULATORY - MEDICINE [facility] [place] [facility] Dec 28, 2023 10:00 AM AMBULATORY - MEDICINE [facility] [place] [facility] Jan 11, 2024 09:00 AM AMBULATORY - MEDICINE [facility] [place] [facility] Jan 14, 2024 11:00 AM AMBULATORY - REHAB MEDICIN E [facility] [place] [facility] Feb 08, 2024 08:30 AM AMBULATORY - MEDICINE [facility] [place] [facility] Advance Directives: All historical and current Section Date Range: From patient's date of to the date document was created. This section includes ALL of a patient's completed or amended VA Advance and Rescinded Directives. The entries below indicate that a directive exists for the patient, but an actual copy is not included with this document. The data comes from all [place] facilities. Date Advance Directives Provider Source Dec 02, 2020 ADVANCE DIRECTIVE ZAIRE COMER [facility] Encounter Notes: All associated encounter notes This section contains the clinical notes associated to the Encounter. Date/Time Encounter Note(s) Provider Source Aug 24, 2023 11:51 AM ACCOUNTING OF DISCLOSURES NOTE: LOCAL TITLE: STATE PRESCRIPTION DRUG MONITORING PROGRAM STANDARD TITLE: ACCOUNTING OF DISCLOSURES NOTE DATE OF NOTE: AUG 24, 2023@11:51:48 ENTRY DATE: AUG 24, 2023@11:51:48 AUTHOR: HEMAL MCNAMARA EXP COSIGNER: URGENCY: STATUS: COMPLETED This PDMP query was submitted by Hemal Mcnamara The clinical justification for this PDMP query is to review controlled substances prescribed outside of the [facility], and any additional information that may become available, as an important component of standard clinical care, and in accordance with [facility] policy. Patient information was shared with the [facility] [facility]iss [place]. Prescription(s) filled outside the VA in the last 90 days are noted. However, they do not raise significant safety concerns and do not influence the treatment plan at this time. 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 07/26/2023 2 07/26/2023 Oxycodone-Acetaminophen 5-325 40.00 5 Da Kaylen [facility] ([id number]) 0/0 60.00 M[place] 07/13/2023 2 07/13/2023 Oxycodone-Acetaminophen 5-325 40.00 3 Da Kaylen [id number] [facility] (9935) 0/0 100.00 [place]ME [place] Ins [place] 06/13/2023 2 06/12/2023 Gabapentin 600 Mg Tablet 270.00 [place] [id number] (8260) 0/0 [place] 03/08/2023 1 03/06/2023 Gabapentin 600 Mg Tablet 270.00 [place] [id number] B[place]nu (8260) 0/0 [place] 11/01/2022 1 07/12/2022 Gabapentin 600 Mg Tablet 270.00 90 An [facility] [id number] Bishnu (8272) 05/28 [place] 07/25/2022 2 07/12/2022 Gabapentin 600 Mg Tablet 270.00 90 An [facility] [id number] Bishnu (8272) / [place] Ins [place] 05/04/2022 2 05/01/2022 Gabapentin 600 Mg Tablet 270.00 90 [place] [id number] Bishnu (8272) 0/0 [place] 02/06/2022 1 02/02/2022 Gabapentin 600 Mg Tablet 270.00 [place] [id number] Bishnu ([id number]) 0/0 [place] Ins [place] /jac/ HEMAL MCNAMARA CLINICAL PHARMACIST PRACTITIONER, PAIN Signed: 08/24/2023 11:52 HMEAL MCNAMARA [place] [facility] [place] [facility] Aug 24, 2023 08:26 AM PAIN MEDICINE CONSULT: LOCAL TITLE: CONSULT REPORT/PAIN CLINIC STANDARD TITLE: PAIN MEDICINE CONSULT DATE OF NOTE: AUG 24, 2023@08:26 ENTRY DATE: AUG 24, 2023@08:26:50 AUTHOR: HEMAL MCNAMARA COSIGNER: URGENCY: STATUS: COMPLETED TEODORA Da Silva is 68 year old WHITE MALE with a history of chronic low back pain, who presents to pharmacy pain management clinic today for initial appointment based on referral from PCP, Dr. Tolbert. SUBJECTIVE/OBJECTIVE: TEODORA Da Silva presents to clinic in no apparent distress. Berta reports history of chronic low back with radiating symptoms down b/l lower extremities. Berta has seen a number of providers in the community including ortho providers Dr. De La Cruz ([place]) and Dr. Barros ([place]). Berta reports extensive pain history starting from his time in the [employer]. Berta has had numerous interventional and surgerical procedures previously including lumbar fusion x 2, cervical disc repair, aron and cage placement, and most recently right rotator cuff repair (~1 month ago). Berta reports he was undergoing evaluation for spinal cord stimulator at [facility] but approval for the wires for trial stimulator were denied. [place] reports Dr. De La Cruz has suggested Berta be seen by Neurosurgery, but [facility] PCP, Dr. Tolbert, suggested Berta speak with pain clinic to explore additional options that may be available to him. Berta reports a high level of pain, ~9 out of 10, with 10 being the most severe. But reports he has trained himself to work around it. Currently, Berta lives in a house with one of his step-daughters and 2 grandaughters (23 and 19). 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 Has second step- daughter and four additional grandchildren living in [place]. Recently drove down for a visit after his rotator cuff repair. 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 PAIN SCREENING: PEG PAIN SCREENING TOOL Q1. What number best describes your pain ON AVERAGE in the past week? NOTE: 0 is no pain; 10 is pain as bad as you can imagine Q2. What number best describes how, during the past week, pain has interfered with your enjoyment of life? NOTE: 0 means it does not interfere; 10 means it completely interferes Q3. What number best describes how, during the past week, pain has interfered with your general activity? NOTE: 0 means it does not interfere; 10 means it completely interferes PEG Scores: Date Q1 Q2 Q3 Score (Average of Q1-Q3) 08/24/23 9 4 4 5.6 EVALUATION OF PAIN RELATED MEDICATIONS: ---- A focused pain related medication reconciliation was performed. 1. Non-VA Acetaminophen 325mg - [place] reports he takes 2 tabs TID and has 2 PRN doses 2. Non-VA Gabapentin 600mg TID - [place] takes as prescribed - Uses medication organizer and reminder to help keep track of dosing - [place] endorses some beneft stating the pain is still there but that the gabapentin dulls the severity Previous Pain Related Medications: Opioids: Oxycodone/Acetaminophen (last filled for 5-day supply on 07/26/23 per PDMP post-surgical; used sparingly and plans on disposing of the rest) Topicals: Lidocaine Patches (did not work on back but did for shoulder post- surgery) EVALUATION OF NON-PHARM (COMPLIMENTARY AND INTEGRATIIVE MEDICINE) MOADLITIES: HEAT: Yes; Helps while applied TENS: Has one available but has not found it benefical PAIN INTERVENTIONS/INJECTIONS: See above. PHYSICAL THERAPY: Post-surgical PT previously ACUPUNCTURE: Denied. States he never thought about it before CHIROPRACTOR: Limited abiltiy to perform manipulations d/t hardware placement EVALUATION OF SOCIAL HISTORY: -- MOOD: Good - has a good support system. [place] shares previous MH struggles while he in the service and lost important figures in his life (mother, stepfather, in-law). [place] herrera to have someone looking out for him. SLEEP: Not assessed today. LEVEL OF ACTIVITY: No purposeful exercise but remains moderately active through work and social events TOBACCO USE: Quit smoking ~30 yrs ago. ALCOHOL USE: Socially at [employer]; 1-2 beers, 1-2x/week CANNABIS USE: Denied. Scent makes me him sick OTHER ILLICIT SUBSTANCES: Denied. RISK MITIGATION: PDMP: Completed 08/19/23 as part of consult disposition; see separate note C-SSRS: Completed today; [place] screened negative DIPHENHYDRAMINE Active and Recently Outpatient Medications (excluding Supplies): Active Outpatient Medications Status 1) ASPIRIN 81MG EC TAB TAKE ONE TABLET BY MOUTH ONCE ACTIVE DAILY TO PREVENT STROKE/HEART ATTACK Active Non-VA Medications Status 1) Non-VA ACETAMINOPHEN 325MG TAB 1300MG BY MOUTH THREE ACTIVE TIMES DAILY NEEDED 2) Non-VA ALFUZOSIN HCL 10MG SA TAB 10MG BY MOUTH DAILY ACTIVE 3) Non-VA GABAPENTIN 300MG CAP 600MG BY MOUTH THREE ACTIVE TIMES A DAY 4) Non-VA TADALAFIL 5MG TAB 5MG BY MOUTH DAILY ACTIVE 5 Total Medications Active problems - Computerized Problem List is the source for the followin. Hyperlipidemia ([facility] [id number]) 2. Impaired Fasting Glucose ([facility] [id number]) 3. Erectile Dysfunction ([facility] [id number]) 4. Tinnitus 5. Hearing loss 6. Exposure to Potentially Hazardous Substance ([facility] [id number]) 7. Syncope and collapse 8. Low back pain 9. Tinea 10. Retinitis pigmentosa 11. Ulnar neuritis 12. Hx of abnormal EKG w left axis deviation 03/10/11 13. Deep venous thrombosis of lower extremity 14. 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 History of bypass of stomach 17. arthritis bilateral shoulders 18. multiple surgeries 19. BPH 20. Morbid obesity 21. History of tobacco use Renal Function: Scr: 0.75 mg/dL (based on labs drawn 11/01/22) eGFR: >90 mL/min (based on labs drawn 11/01/22) Calculated CrCl: 130.2 mL/min (based on Scr: 0.75mg/dL; HT: 182.88cm; WT: 124.3kg ASSESSMENT: Mr. Mak is a 68-year-old male with a history of chronic low back pain s/p multiple surgeries to cervical and lumbar spine. Berta has been followed by providers in the community for his chronic pain issues for a number of years. [facility] after failed attempt to receive a spinal cord stimulator trial. As this was initial appointment with much time was spent introducing Berta to interdiscplinary pain services and building rapport. Additionally, initial risk assessment including PDMP query (results as expected) and completion of C-SSRS (negative screen) were performed today. Despite reported pain level, Berta remains relatively active between work, family, and socializing events with [employer]. Pain education provided during today's appointment included reviewing stepped-care model for pain management and the need to utilize a multi-modal treatment approach. Berta appears to practicing his own form of mind over matter for coping with his chronic pain but may benefit from referral to [facility] to allow him to explore gain additional skills for pain relief. Provided Berta with education flyer for [facility]. Berta was interested in attending and consult was entered. In regard, to medication therapy discussed with [place] alternative to current gabapentin. From review of medication profile and intake with , it does not appear pregabalin was ever trialed. Unlike gabapentin, pregabalin exhibits linear pharmacokinetics and tighter binding to the [id number] receptors voltage gated calcium channels which can provide improved efficacy for dose reponse and potentially improved pain control. stated he was willing to trial use. Recommended to a conservative intitial dose (with respect to current dose of gabapentin) of pregabalin 100mg BID to allow for assessment of tolerability. [place] counseled on potential side effects including increase in sedation, fatigue, and in rare cases changes in mood. is aware to contact clinic with any questions or concerns prior to next encounter. was instructed to take last dose of gabapentin this evening and start pregabalin tomorrow morning. Berta demonstrates a good understanding of education provided. In the future, may benefit from referral to PM&R for additional evaluation by Dr. Champion given extensive surgical history, however, will first better establish 's goals of care. A shared decision-making approach was used in the development of this plan, involving the [place] and clinician present. The [place] was provided the opportunity express questions or concerns, and the plan was adjusted as needed to address these concerns. [place] verbalized understanding of the plan, including possible known risks and benefits, and had no additional questions. PLAN: 1. Start Pregabalin 100mg BID - counseled on potential side effects associated with use - PDMP queried; results returned as expected - Prescription entered for outpatient pharmacy window pick-up 2. Stop Gabapentin 600mg TID 3. Consult to [facility] entered 4. [place] counseled to be mindful of pain presentation 5. C-SSRS completed today; screened negative F/U via F2F in 1 weeks to assess transition to pregabalin; Pt instructed to contact clinic with any questions or concerns prior to next encounter. Encounter Time: 60 minutes Suicide Screen: C-SSRS Screening [place]-Suicide Severity Rating Scale (C-SSRS Screener) 1. Over the past month, have you wished you were or wished you could go to sleep and not wake up? No 2. Over the past month, have you had any actual thoughts of killing yourself? No 3. Over the past month, have you been thinking about how you might do this? Response not required due to responses to other questions. 4. Over the past month, have you had these thoughts and had some intention of acting on them? Response not required due to responses to other questions. 5. Over the past month, have you started to work out or worked out the details of how to kill yourself? Response not required due to responses to other questions. 6. If yes, at any time in the past month did you intend to carry out this plan? Response not required due to responses to other questions. 7. In your lifetime, have you ever done anything, started to do anything, or prepared to do anything to end your life (for example, collected pills, obtained a gun, gave away valuables, went to the roof but didn't jump)? No 8. If YES, was this within the past 3 months? Response not required due to responses to other questions. /es/ HEMAL S ANDERS CLINICAL PHARMACIST PRACTITIONER, PAIN Signed: 08/24/2023 16:11 HEMAL MCNAMARA [place] [facility]
--- OUTSIDE RECORDS SUMMARY | 2024-05-20 08:39 | XMS_ITS | Encounter Summary ---
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 Name Role Phone KRISTOPHER MAXWELL Primary [facility] Provider [facility] Insurance Providers: All historical and current [...] PRESCRIPT ION RX730 1 May 28, 2017 [id number] Weston MAK PATIENT CAREMARK PRESCRIPT ION RX730 1 May 28, 2017 [id number] [phone] Weston MAKM PATIENT OPTUM RX PRESCRIPT ION RX May 28, 2022 [id number] [phone] Weston MAKIAM PATIENT [facility] PLAN ALLEGRA Rincon May 28, 2017 [id number] Weston MAK PATIENT [facility] PLAN USP May 28, 2017 [facility] [id number] Weston MAK PATIENT [facility] (R) TRICA RE(WN R) May 28, 2017 (WNR) [id number] Weston MAK PATIENT [facility] (WNR) HMO May 28, 2014 [id number] Weston MAK PATIENT Selected Encounter This section includes the information on record at [place] for the Encounter. Date/Time Encounter Type Encounter Description Reason Pro vider Source Aug 27, 2023 01:49 PM Outpatient Encounter PAIN CLINIC IHE Encounter Template Text not used by [place] Plan of Treatment: Future Appointments (+ 6 months) and Future Tests (+/- 45 days) The Plan of Treatment section includes future care activities for the patient from all [place] treatmentfacilities. This section includes future appointments and future orders which are active, pending or scheduled. Future Appointments This section includes appointments that were scheduled to occur 6 months from the date of the Encounter, up to a maximum of 20 appointments. The data comes from all [place] treatment facilities. Appointment Date/Time Appointment Type Appointme nt Facility Name Aug 28, 2023 10:00 AM AMBULATORY - MEDICINE [facility] [place] [facility] Aug 31, 2023 09:00 AM AMBULATORY - MEDICINE [facility] [place] [facility] Aug 31, 2023 10:00 AM AMBULATORY - REHAB MEDICIN E [facility] [place] [facility] Sep 07, 2023 10:00 AM AMBULATORY - MEDICINE [facility] [place] [facility] Sep 14, 2023 10:00 AM AMBULATORY - MEDICINE [facility] [place] [facility] Sep 21, 2023 10:30 AM AMBULATORY - MEDICINE [place] [facility] [place] [facility] September 28, 2023 08:30 AM AMBULATORY - MEDICINE [facility] [place] [facility] October 01, 2023 09:00 AM AMBULATORY - REHAB MEDICIN E [facility] [place] [facility] October 11, 2023 02:30 PM AMBULATORY - MEDICINE [facility] October 19, 2023 08:30 AM AMBULATORY - MEDICINE [facility] [place] [facility] Nov 13, 2023 01:30 PM AMBULATORY - MEDICINE [facility] [place] [facility] Dec 14, 2023 11:30 AM AMBULATORY - MEDICINE [facility] [place] [facility] Dec 28, 2023 10:00 AM AMBULATORY - MEDICINE [facility] [place] [facility] Jan 11, 2024 09:00 AM AMBULATORY - MEDICINE [facility] [place] [facility] Jan 14, 2024 11:00 AM AMBULATORY - REHAB MEDICIN E [facility] [place] [facility] Feb 08, 2024 08:30 AM AMBULATORY - MEDICINE [facility] [place] [facility] Feb 26, 2024 08:30 AM AMBULATORY - MEDICINE [facility] [place] [facility] Advance Directives: All historical and current Section Date Range: From patient's date of to the date document was created. This section includes ALL of a patient's completed or amended VA Advance and Rescinded Directives. The entries below indicate that a directive exists for the patient, but an actual copy is not included with this document. The data comes from all [place] facilities. Date Advance Directives Provider Source Dec 02, 2020 ADVANCE DIRECTIVE ZAIRE COMER [facility] Encounter Notes: All associated encounter notes This section contains the clinical notes associated to the Encounter. Date/Time Encounter Note(s) Provider Source Aug 27, 2023 01:49 PM TELEPHONE ENCOUNTE R NOTE: LOCAL TITLE: TELEPHONE NOTE/SPECIALTY CLINIC STANDARD TITLE: TELEPHONE ENCOUNTER NOTE DATE OF NOTE: AUG 27, 2023@13:49 ENTRY DATE: AUG 27, 2023@13:49:41 AUTHOR: YESSI STONE COSIGNER: URGENCY: STATUS: COMPLETED Called and spoke with pt to reminded them that they have a FTF appt with the Pain clinic on 08/28/2023 at 1000. Location was confirmed. /jac/ YESSI STONE Signed: 08/27/2023 13:49 YESSI STONE [place] [facility] [place] [facility]
--- OUTSIDE RECORDS SUMMARY | 2024-05-20 08:39 | XMS_ITS | Encounter Summary ---
Author Name Department of Veter[facility] ([place]) Organization [facility] [place] Address [address] [place] [address] Care Team Providers Care All Around Presser Name Role Phone KRISTOPHER MAXWELL Primary Care Provider [facility] Insurance Providers: All historical and [...] PRESCRIPT ION RX730 1 May 28, 2017 [id number] [phone] OBDULIOWeston SNOWIAM PATIENT CAREMARK PRESCRIPT ION RX730 1 May 28, 2017 [id number] Weston MAK ILLTAINAM PATIENT OPTUM RX PRESCRIPT ION RX May 28, 2022 THPRX [id number] OBDULIO,Weston ILLIAM PATIENT [facility] PLAN ALLEGRA Rincon May 28, 2017 [id number] Weston MAK PATIENT [facility] HEALTH PLAN USP May 28, 2017 [facility] [id number] OBDULIO,W ILLIAM PATIENT [facility] (WNR) TRICA RE(WN R) May 28, 2017 (WNR) [id number] [phone] Weston MAK PATIENT [facility] (WNR) HMO May 28, 2014 [id number] [phone] Weston MAK PATIENT Selected Encounter This section includes the information on record at [place] for the Encounter. Date/Time Encounter Type Encounter Description Reason Pro vider Source May 29, 2023 12:00 AM Outpatient Encounter EVENT (HISTORICAL) IHE Encounter Template Text not used by [place] Plan of Treatment: Future Appointments (+ 6 months) and Future Tests (+/- 45 days) The Plan of Treatment section includes future care activities for the patient from all [place] treatmentfacilities. This section includes future appointments and future orders which are active, pending or scheduled. Future Appointments This section includes appointments that were scheduled to occur 6 months from the date of the Encounter, up to a maximum of 20 appointments. The data comes from all [place] treatment facilities. Appointment Date/Time Appointment Type Appointme nt Facility Name Jun 07, 2023 08:00 AM AMBULATORY - [facility]IC[facility] [place] [facility] Jul 06, 2023 08:00 AM AMBULATORY - [facility] MEDICIN [facility] [place] [facility] Aug 15, 2023 08:00 AM AMBULATORY - MEDICINE [facility] [place] [facility] Aug 17, 2023 01:30 PM AMBULATORY [facility] Aug 24, 2023 11:00 AM AMBULATORY - MEDICINE [facility] [place] [facility] Aug 28, 2023 10:00 AM AMBULATORY - MEDICINE [facility] [place] [facility] Aug 31, 2023 09:00 AM AMBULATORY - MEDICINE [facility] [place] [facility] Aug 31, 2023 10:00 AM AMBULATORY - REHAB MEDICIN E [facility] [place] [facility] Sep 07, 2023 10:00 AM AMBULATORY - MEDICINE [facility] [place] [facility] Sep 14, 2023 10:00 AM AMBULATORY - MEDICINE [facility] [place] [facility] Sep 21, 2023 10:30 AM AMBULATORY - MEDICINE [facility] [place] [facility] September 28, 2023 08:30 AM AMBULATORY - MEDICINE [facility] [place] [facility] October 01, 2023 09:00 AM AMBULATORY - REHAB MEDICIN E [facility] [place] [facility] October 11, 2023 02:30 PM AMBULATORY - MEDICINE [place] [place] October 19, 2023 08:30 AM AMBULATORY - MEDICINE [facility] [place] [facility] Nov 13, 2023 01:30 PM AMBULATORY - MEDICINE [place] [facility] [place] [facility] Advance Directives: All historical and current Section Date Range: From patient's date of to the date document was created. This section includes ALL of a patient's completed or amended VA Advance and Rescinded Directives. The entries below indicate that a directive exists for the patient, but an actual copy is not included with this document. The data comes from all [place] facilities. Date Advance Directives Provider Source Dec 02, 2020 ADVANCE DIRECTIVE ZAIRE COMER
--- OUTSIDE RECORDS SUMMARY | 2024-05-20 08:39 | XMS_ITS | Encounter Summary ---
Author Name Department of Veter[facility] [place] [facility] [place] Address [address] [place] [address] Care Team Providers Care Destination Sign Repairer Name Role Phone KRISTOPHER MAXWELL Primary Care Provider [facility] Insurance Providers: All historical and [...] PRESCRIPT ION RX730 1 May 28, 2017 [id number] [phone] Weston MAK PATIENT [facility] PRESCRIPT ION RX730 1 May 28, 2017 [id number] Weston MAK PATIENT OPTUM RX PRESCRIPT ION RX May 28, 2022 THPRX [id number] Weston MAKM PATIENT [facility] PLAN CHRISTINA Rincon May 28, 2017 [id number] [phone] Weston MAK PATIENT [facility] PLAN USFHP May 28, 2017 [facility] [id number] OBDULIO,W ILLIAM PATIENT [facility] (WNR) TRICA RE(WN R) May 28, 2017 (WNR) [id number] OBDULIO,W ILLIAM PATIENT [facility] HEALTH[facility] (WNR) HMO May 28, 2014 [id number] OBDULIO,W ILLIAM PATIENT Selected Encounter This section includes the information on record at [place] for the Encounter. Date/Time Encounter Type Encounter Description Reason Pro vider Source IHE Encounter Template Text not used by [place] Advance Directives: All historical and current Section Date Range: From patient's date of to the date document was created. This section includes ALL of a patient's completed or amended VA Advance and Rescinded Directives. The entries below indicate that a directive exists for the patient, but an actual copy is not included with this document. The data comes from all [place] facilities. Date Advance Directives Provider Source Dec 02, 2020 ADVANCE DIRECTIVE [facility]
--- OUTSIDE RECORDS SUMMARY | 2024-05-20 08:39 | XMS_ITS ---
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 [id number] Weston MAK PATIENT [facility] (R) TRICA RE(WN R) May 28, 2017 (WNR) [id number] [phone] Weston MAK PATIENT [facility] (WNR) HMO May 28, 2014 [id number] [phone] Weston MAK PATIENT Selected Encounter This section includes the information on record at [place] for the Encounter. Date/Time Encounter Type Encounter Description Reason Pro vider Source Aug 22, 2023 09:10 AM Outpatient Encounter PAIN CLINIC IHE Encounter Template Text not used by [place] Plan of Treatment: Future Appointments (+ 6 months) and Future Tests (+/- 45 days) The Plan of Treatment section includes future care activities for the patient from all [place] treatmentfacilities. This section includes future appointments and [...] - MEDICINE [facility] [place] [facility] Aug 28, 2023 10:00 AM AMBULATORY - MEDICINE [facility] [place] [facility] Aug 31, 2023 09:00 AM AMBULATORY - MEDICINE [facility] [place] [facility] Aug 31, 2023 10:00 AM AMBULATORY - REHAB MEDICIN [facility] [place] [facility] Sep 07, 2023 10:00 AM AMBULATORY - MEDICINE [facility] [place] [facility] Sep 14, 2023 10:00 AM AMBULATORY - MEDICINE [facility] [place] [facility] Sep 21, 2023 10:30 AM AMBULATORY - MEDICINE [facility] [place] [facility] September 28, 2023 08:30 AM AMBULATORY - MEDICINE [facility] [place] [facility] October 01, 2023 09:00 AM AMBULATORY - REHAB MEDICIN E [facility] [place] [facility] October 11, 2023 02:30 PM AMBULATORY - [place]ICINE [place] October 19, 2023 08:30 AM AMBULATORY - MEDICINE [facility] [place] [facility] Nov 13, 2023 01:30 PM AMBULATORY - MEDICINE [facility] [place] [facility] Dec 14, 2023 11:30 AM AMBULATORY - MEDICINE [facility] [place] [facility] Dec 28, 2023 10:00 AM AMBULATORY - MEDICINE [facility] [place] [facility] Jan 11, 2024 09:00 AM AMBULATORY - MEDICINE [facility] [place] [facility] Jan 14, 2024 11:00 AM AMBULATORY - REHAB MEDICIN E [facility] [place] [facility] Feb 08, 2024 08:30 AM AMBULATORY - MEDICINE [facility] [place] [facility] Advance Directives: All historical and current Section Date Range: From patient's date of to the date document was created. This section includes ALL of a patient's completed or amended [place] Advance and Rescinded Directives. The entries below indicate that a directive exists for the patient, but an actual copy is not included with this document. The data comes from all [place] facilities. Date Advance Directives Provider Source Dec 02, 2020 ADVANCE DIRECTIVE ZAIRE COMER [place] Encounter Notes: All associated encounter notes This section contains the clinical notes associated to the Encounter. Date/Time Encounter Note(s) Provider Source Aug 22, 2023 09:10 AM LETTERS: LOCAL TITLE: PATIENT LETTER (B) STANDARD TITLE: LETTERS DATE OF NOTE: AUG 22, 2023@09:10 ENTRY DATE: AUG 22, 2023@09:11:01 AUTHOR: LAURA BOOKER EXP COSIGNER: URGENCY: STATUS: COMPLETED [facility] Toll Free Number ext [phone] [facility] scheduling can be reached at ext. [phone] [facility]- ext. [phone] [facility]- ext. [phone] [facility]- ext. [phone] AUG 22, 2023 TEODORA MAK [address] [place] [address] [id number] Dear TEODORA MAK Thank you for choosing the [facility] of [facility] as your primary choice for health care. As a partner in your health care, we are contacting you in writing since we have been unsuccessful in our attempts to reach you to date. We want to assure you we are doing everything possible to schedule Veterans for their VA medical care appointments. Our records indicate you are due for an appointment in pain clinic. If you would like to be seen, please contact [place] Call Center at ext. [phone] to schedule an appointment. Thank you for your service to our nation, and we look forward to hearing from you soon. Sincerely, [facility] [address] [facility] [address] [place] [address] [place] [address] ext [phone] [facility] [address] [facility] [address] [place] [address] [place] [address] ext. [phone] [facility] [address] [address] [place] [address] ext. [phone] LAURA BOOKER [place] [facility] [place] [facility]
--- OUTSIDE RECORDS SUMMARY | 2024-05-20 08:39 | XMS_ITS | Encounter Summary ---
Author Name [place] Address [address] [place] [address] Care Team Providers Care Tetryl Dissolver Operator Name Role Phone KRISTOPHER MAXWELL Primary Care Provider [facility] Insurance Providers: All historical and [...] PRESCRIPT ION RX730 1 May 28, 2017 [id number] [phone] OBDULIOWeston SNOWM PATIENT CAREMARK PRESCRIPT ION RX730 1 May 28, 2017 [id number] Weston MAKM PATIENT OPTUM RX PRESCRIPT ION RX May 28, 2022 THPRX [id number] [phone] OBDULIO,W ILLIAM PATIENT [facility] PLAN ALLEGRA Rincon May 28, 2017 [id number] [phone] Weston MAK PATIENT [facility] HEALTH PLAN USP May 28, 2017 [facility] [id number] Weston MAK PATIENT [facility] (R) TRICA RE(WN R) May 28, 2017 (WNR) [id number] Weston MAK PATIENT [facility] (WNR) HMO May 28, 2014 [id number] Weston MAK PATIENT Selected Encounter This section includes the information on record at [place] for the Encounter. Date/Time Encounter Type Encounter Description Reason Pro vider Source Aug 23, 2023 08:54 AM Outpatient Encounter PAIN CLINIC IHE Encounter Template Text not used by [place] Plan of Treatment: Future Appointments (+ 6 months) and Future Tests (+/- 45 days) The Plan of Treatment section includes future care activities for the patient from all [place] treatmentfacilities. This section includes future appointments and future orders which are active, pending or scheduled. Future Appointments This section includes appointments that were scheduled to occur 6 months from the date of the Encounter, up to a maximum of 20 appointments. The data comes from all [place] treatment facilities. Appointment Date/Time Appointment Type Appointme nt Facility Name Aug 24, 2023 11:00 AM AMBULATORY [facility]IC[facility] [place] [facility] Aug 28, 2023 10:00 AM AMBULATORY - MEDICINE [facility] [place] [facility] Aug 31, 2023 09:00 AM AMBULATORY - MEDICINE [facility] [place] [facility] Aug 31, 2023 10:00 AM AMBULATORY - REHAB MEDICIN E [facility] [place] [facility] Sep 07, 2023 10:00 AM AMBULATORY - MEDICINE [facility] [place] [facility] Sep 14, 2023 10:00 AM AMBULATORY - MEDICINE [facility] [place] [facility] Sep 21, 2023 10:30 AM AMBULATORY - MEDICINE [facility] [place] [facility] September 28, 2023 08:30 AM AMBULATORY - MEDICINE [facility] [place] [facility] October 01, 2023 09:00 AM AMBULATORY - REHAB MEDICIN E [facility] [place] [facility] October 11, 2023 02:30 PM AM[facility]ORY - [place]ICINE [place] October 19, 2023 08:30 AM AMBULATORY - MEDICINE [facility] [place] [facility] Nov 13, 2023 01:30 PM AMBULATORY - MEDICINE [facility] [place] [facility] Dec 14, 2023 11:30 AM AMBULATORY - MEDICINE [facility] [place] [facility] Dec 28, 2023 10:00 AM AMBULATORY - MEDICINE [facility] [place] [facility] Jan 11, 2024 09:00 AM AMBULATORY - MEDICINE [facility] [place] [facility] Jan 14, 2024 11:00 AM AMBULATORY - REHAB MEDICIN E [facility] [place] [facility] Feb 08, 2024 08:30 AM AMBULATORY - [place]ICINE [place] [facility] [place] [facility] Advance Directives: All historical and current Section Date Range: From patient's date of to the date document was created. This section includes ALL of a patient's completed or amended [place] Advance and Rescinded Directives. The entries below indicate that a directive exists for the patient, but an actual copy is not included with this document. The data comes from all [place] facilities. Date Advance Directives Provider Source Dec 02, 2020 ADVANCE DIRECTIVE ZAIRE COMER [facility] Encounter Notes: All associated encounter notes This section contains the clinical notes associated to the Encounter. Date/Time Encounter Note(s) Provider Source Aug 23, 2023 08:54 AM TELEPHONE ENCOUNTE R NOTE: LOCAL TITLE: TELEPHONE NOTE/SPECIALTY CLINIC STANDARD TITLE: TELEPHONE ENCOUNTER NOTE DATE OF NOTE: AUG 23, 2023@08:54 ENTRY DATE: AUG 23, 2023@08:54:32 AUTHOR: YESSI STONE COSIGNER: URGENCY: STATUS: COMPLETED Call attempt was made to remind vet that they have a FTF appt with the Pain clinic on 08/24/2023 at 1100. No answer, lvm. Location was confirmed. /jac/ YESSI STONE Signed: 08/23/2023 08:54 YESSI STONE [place] [facility]
--- OUTSIDE RECORDS SUMMARY | 2024-05-20 08:40 | XMS_ITS ---
Author Name [facility] [place] Address [address] [place] [address] Care Team Providers Care Underwriting Consultant Name Role Phone KRISTOPHER MAXWELL Primary Care Provider [facility] Insurance Providers: All historical and current [...] PRESCRIPT ION [id number] 1 May 28, 2017 [id number] [place] MAK PATIENT CAREMARK PRESCRIPT ION RX730 1 May 28, 2017 [id number] [phone] OBDULIO,Weston MANSOORM PATIENT [facility] RX PRESCRIPT ION RX May 28, 2022 THPRX [id number] OBDULIO,W ILLIAM PATIENT [facility] ALLEGRA Rincon May 28, 2017 [id number] OBDULIO,W ILLIAM PATIENT [facility] May 28, 2017 [facility] [id number] [phone] OBDULIO,W ILLIAM PATIENT [facility] (WNR) TRICA RE(WN R) May 28, 2017 (WNR) [id number] OBDULIO,W ILLIAM PATIENT [facility] (WNR) HMO May 28, 2014 [id number] OBDULIO,W ILLIAM PATIENT Selected Encounter This section includes the information on record at [place] for the Encounter. Date/Time Encounter Type Encounter Description Reason Provider Source Sep 14, 2023 10:00 AM MTMS BY TRAY MONET 15 MIN TELEPHONE/STEPHY MICHAEL ICD-10-CM M54.50 Low back pain, unspecified HEMAL MCNAMARA E Encounter Template Text not used by [place] Assessments - Encounter Diagnoses This section includes the primary and secondary diagnoses documented for the Encounter. Date/Time Primary/Secondary Diagnosis Diagnosis Name Provider Source Sep 14, 2023 10:00 AM PRIMARY Low back pain, unspecified HEMAL [facility]NAM[facility] [place] [facility] Plan of Treatment: Future Appointments (+ 6 months) and Future Tests (+/- 45 days) The Plan of Treatment section includes future care activities for the patient from all [place] treatmentfacilities. This section includes future appointments and future orders which are active, pending or scheduled. Future Appointments This section includes appointments that were scheduled to occur 6 months from the date of the Encounter, up to a maximum of 20 appointments. The data comes from all [place] treatment facilities. Appointment Date/Time Appointment Type Appointme nt Facility Name Sep 21, 2023 10:30 AM AMBULATORY - MEDICINE [place] [facility] [facility] September 28, 2023 08:30 AM AMBULATORY - MEDICINE [place] [facility] [place] [facility] October 01, 2023 09:00 AM AMBULATORY - REHAB MEDICIN E [place] [facility] [place] [facility] October 11, 2023 02:30 PM AMBULATORY - MEDICINE [facility] October 19, 2023 08:30 AM AMBULATORY - MEDICINE [place] [facility] [place] [facility] Nov 13, 2023 01:30 PM AMBULATORY - MEDICINE [place] [facility] [place] [facility] Dec 14, 2023 11:30 AM AMBULATORY - MEDICINE [place] [facility] [place] [facility] Dec 28, 2023 10:00 AM AMBULATORY - MEDICINE [place] [facility] [place] [facility] Jan 11, 2024 09:00 AM AMBULATORY - MEDICINE [place] [facility] [place] [facility] Jan 14, 2024 11:00 AM AMBULATORY - REHAB MEDICIN E [facility] [place] [place] [facility] Feb 08, 2024 08:30 AM AMBULATORY - MEDICINE [place] [facility] [place] [facility] Feb 26, 2024 08:30 AM [facility] Advance Directives: All historical and current Section Date Range: From patient's date of to the date document was created. This section includes ALL of a patient's completed or amended VA Advance and Rescinded Directives. The entries below indicate that a directive exists for the patient, but an actual copy is not included with this document. The data comes from all [place] facilities. Date Advance Directives Provider Source Dec 02, 2020 ADVANCE DIRECTIVE ZAIRE COMER RENUKA [facility] Encounter Notes: All associated encounter notes This section contains the clinical notes associated to the Encounter. Date/Time Encounter Note(s) Provider Source Sep 14, 2023 10:16 AM ACCOUNTING OF DISC LOSURES NOTE: LOCAL TITLE: STATE PRESCRIPTION DRUG MONITORING PROGRAM STANDARD TITLE: ACCOUNTING OF DISCLOSURES NOTE DATE OF NOTE: SEP 14, 2023@10:16:56 ENTRY DATE: SEP 14, 2023@10:16:56 AUTHOR: HEMAL MCNAMARA EXP COSIGNER: URGENCY: STATUS: COMPLETED This PDMP query was submitted by Hemal Mcnamara. The clinical justification for this PDMP query is to review controlled substances prescribed outside of the VA, and any additional information that may become available, as an important component of standard clinical care, and in accordance with [facility] policy. Patient information was shared with the PDMP [place]. No prescription(s) for controlled substances outside the VA were found in the last 90 days. /jac/ HEMAL MCNAMARA CLINICAL PHARMACIST PRACTITIONER, PAIN Signed: 09/14/2023 10:18 HEMAL MCNAMARA [place] [facility] [place] [facility] Sep 14, 2023 08:32 AM PAIN [facility]IC[facility] NOTE: LOCAL TITLE: PAIN CLINIC NOTE STANDARD TITLE: PAIN MEDICINE OUTPATIENT NOTE DATE OF NOTE: SEP 14, 2023@08:32 ENTRY DATE: SEP 14, 2023@08:32:06 AUTHOR: HEMAL MCNAMARA EXP COSIGNER: URGENCY: STATUS: COMPLETED TEODORA Da Silva is 68 year old WHITE MALE with a history of chronic low back pain, who presents to pharmacy pain management clinic today for focused follow-up appointment regarding pregabalin titration. [place] was last seen in clinic on 09/07/23. Prior to initiating encounter 's identity and location were confirmed. SUBJECTIVE/OBJECTIVE: TEODORA Da Silva reports today he feels pain level has increased over the last week since returning to work on Sunday. Although a numerical pain score was not obtained today described the pain as 65% improved last week and 45% this week . Although, Berta is only allowed to life a maximum of 6lbs d/t restrictions from shoulder surgery, he has been walking ~16,000 steps per day. He describes the pain quality as being unchanged from previous and is constant throughout the day. He does have heated chair seat that he uses at work along with continuing meditative practices. ----- PAIN SCREENING: PEG PAIN SCREENING TOOL Q1. [...] of Q1-Q3) 08/24/23 9 4 4 5.6 ----- EVALUATION OF PAIN RELATED MEDICATIONS: ------ A focused pain related medication reconciliation was performed. #1. Non-VA Acetaminophen 325mg - Use not assessed today #2. Pregabalin 100mg TID (titrated 09/07/23) - [place] denies side effects related to use; does indicate some fatigue this week but attribute that to returning to work - Denies missed doses EVALUATION OF SOCIAL HISTORY: ---- TOBACCO USE: Denied. Quit ~ 30 ys ago ALCOHOL USE: Socially when at [employer]; 1-2 beers, 1-2x per week CANNABIS USE: Denied. OTHER ILLICIT SUBSTANCES: Denied. RISK MITIGATION: PDMP: Completed 09/07/23; results returned as expected C-SSRS: Completed 08/24/23; screened negative * DIPHENHYDRAMINE Active and Recently Outpatient Medications (excluding Supplies): Active Outpatient Medications Status 1) ASPIRIN 81MG EC TAB TAKE ONE TABLET BY MOUTH ONCE ACTIVE DAILY TO PREVENT STROKE/HEART ATTACK 2) PREGABALIN 100MG ORAL CAP TAKE ONE CAPSULE BY MOUTH ACTIVE THREE TIMES A DAY FOR PAIN ; THIS REPLACES GABAPENTIN Active Non-VA Medications Status 1) Non-VA ACETAMINOPHEN 325MG TAB 1300MG BY MOUTH THREE ACTIVE TIMES DAILY NEEDED 2) Non-VA ALFUZOSIN HCL 10MG SA TAB 10MG BY MOUTH DAILY ACTIVE 3) Non-VA TADALAFIL 5MG TAB 5MG BY MOUTH DAILY ACTIVE 5 Total Medications * Active problems - Computerized Problem List is the source for the followin. Hyperlipidemia ([facility] [id number]) 2. Impaired Fasting Glucose ([facility] [id number]) 3. Erectile Dysfunction ([facility] [id number]) 4. Tinnitus 5. Hearing loss 6. Exposure to Potentially Hazardous Substance ([facility] [id number]) 7. Syncope and collapse 8. Low back [...] Morbid obesity 21. History of tobacco use ASSESSMENT: Mr. Mak is a 68-year-old male with a history of chronic low back pain s/p multiple surgeries to cervical and lumbar spine. also followed by Non-VA providers for chronic pain related interventions. likely experiencing an increase in pain level related to increased activity level now that he has returned to work. [place] continues to tolerate use of pregabalin and tolerate use. Discussed with [place] titrating dose further for potential additional benefit. agreed to plan. Will increase pregabalin to 200mg BID (total daily dose 400mg). can start this change using supply of 100mg capsules (2 caps in the AM and 2 in PM) from previous prescription until new prescription arrives. Reviewed potential side effects related to use. [place] demonstrates a good understanding from previous education. PDMP queried; result returned as expected. Prescription entered for mail delivery per 's request. A shared decision-making approach was used in the development of this plan, involving the [place] and clinician present. The [place] was provided the opportunity express questions or concerns, and the plan was adjusted as needed to address these concerns. [place] verbalized understanding of the plan, including possible known risks and benefits, and had no additional questions. PLAN: 1. Increase to Pregabalin 200mg BID - PDMP queried; results returned as expected 2. Continue to monitor for changes in pain presentation F/U via telephone in 1 week; Pt instructed to contact clinic with any questions or concerns prior to next encounter. - Encounter Time: 30 minutes /jac/ HEMAL MCNAMARA CLINICAL PHARMACIST PRACTITIONER, PAIN Signed: 09/14/2023 16:08 HEMAL MCNAMARA [facility]
--- OUTSIDE RECORDS SUMMARY | 2024-05-20 08:40 | XMS_ITS ---
Author Name [facility] [place] Organization [place] Address [address] [place] [address] Care Team Providers Care Air Value Tester Name Role Phone KRISTOPHER MAXWELL Primary Care [...] PRESCRIPT ION RX730 1 May 28, 2017 [id number] OBDULIO,Weston DARION PATIENT CAREMARK PRESCRIPT ION [id number] 1 May 28, 2017 [id number] [phone] [place] MAK DANIELLETAINAKaren PATIENT [facility] RX PRESCRIPT ION RX May 28, 2022 THPRX [id number] [phone] OBDULIO,Weston MANSOORM PATIENT [facility] May 28, 2017 [facility] [id number] OBDULIOW ILLIAM PATIENT [facility] ALLEGRA Rincon May 28, 2017 [id number] OBDULIO,W ILLIAM PATIENT [facility] (R) TRICA RE(WN R) May 28, 2017 (WNR) [id number] OBDULIO,W ILLIAM PATIENT [facility] (W[facility]) HMO May 28, 2014 [id number] OBDULIO,W ILLIAM PATIENT Selected Encounter This section includes the information on record at [place] for the Encounter. Date/Time Encounter Type Encounter Description Reason Provider Source Sep 21, 2023 10:30 AM MTMS BY TRAY MONET 15 MIN TELEPHONE/STEPHY MICHAEL ICD-10-CM M54.50 Low back pain, unspecified HEMAL MCNAMARA E Encounter Template Text not used by [place] Assessments - Encounter Diagnoses This section includes the primary and secondary diagnoses documented for the Encounter. Date/Time Primary/Secondary Diagnosis Diagnosis Name Provider Source Sep 21, 2023 10:30 AM PRIMARY Low back pain, unspecified HEMAL MCNAMARA [facility] [place] [facility] Plan of Treatment: Future Appointments (+ 6 [...] Date/Time Appointment Type Appointme nt Facility Name September 28, 2023 08:30 AM AMBULATORY - MEDICINE [place] [facility] [place] [facility] October 01, 2023 09:00 AM AMBULATORY - REHAB MEDICIN E [place] [facility] [place] [facility] October 11, 2023 02:30 PM AMBULATORY - MEDICINE [facility] October 19, 2023 08:30 AM AMBULATORY - MEDICINE DE [facility] [place] [facility] Nov 13, 2023 01:30 PM AMBULATORY - MEDICINE DE [facility] [place] [facility] Dec 14, 2023 11:30 AM AMBULATORY - MEDICINE [place] [facility] [place] [facility] Dec 28, 2023 10:00 AM AMBULATORY - MEDICINE [place] [facility] [place] [facility] Jan 11, 2024 09:00 AM AMBULATORY - MEDICINE [place] C [facility] [place] [facility] Jan 14, 2024 11:00 AM AMBULATORY - REHAB MEDICIN E [place] [facility] [place] [facility] Feb 08, 2024 08:30 AM AMBULATORY - MEDICINE [place] C [facility] [place] [facility] Feb 26, 2024 08:30 AM AMBULATORY - MEDICINE [place] C [facility] [place] [facility] Mar 21, 2024 08:30 AM [facility] Advance Directives: All historical and current Section [...] 02, 2020 ADVANCE DIRECTIVE ZAIRE COMER RENUKA [facility] Encounter Notes: All associated encounter notes This section contains the clinical notes associated to the Encounter. Date/Time Encounter Note(s) Provider Source Sep 21, 2023 08:22 AM [facility]: LOCAL TITLE: PAIN CLINIC NOTE STANDARD TITLE: PAIN MEDICINE OUTPATIENT NOTE DATE OF NOTE: SEP 21, 2023@08:22 ENTRY DATE: SEP 21, 2023@08:22:04 AUTHOR: HEMAL MCNAMARA COSIGNER: URGENCY: STATUS: COMPLETED TEODORA Da Silva is 68 year old WHITE MALE with a history of chronic low back pain, who presents to pharmacy pain management clinic today for focused follow-up appointment regard pregabalin titration. Prior to initiating encounter Renfrew's identity and location were confirmed. SUBJECTIVE/OBJECTIVE: TEODORA Da Silva reports today no significant change in pain presentation since last encounter on 09/14/23. Again describes pain level as 45% improved . Reports more throbbing in back by the end of the work day. Much more active now that he has returned to work. 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 He describes this as the real test of the new dose . -- PAIN SCREENING: PEG PAIN SCREENING TOOL Q1. [...] of Q1-Q3) 08/24/23 9 4 4 5.6 -- EVALUATION OF PAIN RELATED MEDICATIONS: ------ A focused pain related medication reconciliation was performed. #1. Non-VA Acetaminophen 335mg - Use not assessed today #2. Pregabalin 200mg BID (titrated 09/21/23) - Renfrew reports he made initial titration using supply of 100mg caps. D/t mailing issues he was not able to citrus picker- prescription for several days. Has only taken 3 caps from new rx. - No side effects reported from use EVALUATION OF SOCIAL HISTORY: ---- TOBACCO USE: Denied. Quit ~ 30 ys ago ALCOHOL USE: Socially when at [employer]; 1-2 beers, 1-2x per week CANNABIS USE: Denied. OTHER ILLICIT SUBSTANCES: Denied. RISK MITIGATION: PDMP: Completed 09/14/23; results returned as expected C-SSRS: Completed 08/24/23; [place] screened negative * DIPHENHYDRAMINE Active and Recently Outpatient Medications (excluding Supplies): Active Outpatient Medications Status 1) ASPIRIN 81MG EC TAB TAKE ONE TABLET BY MOUTH ONCE ACTIVE DAILY TO PREVENT STROKE/HEART ATTACK 2) PREGABALIN 200MG ORAL CAP TAKE ONE CAPSULE BY MOUTH ACTIVE TWICE DAILY ; THIS REPLACES GABAPENTIN Active Non-VA Medications Status 1) Non-VA ACETAMINOPHEN 325MG TAB 1300MG BY MOUTH THREE ACTIVE TIMES DAILY NEEDED 2) Non-VA ALFUZOSIN HCL 10MG SA TAB 10MG BY MOUTH DAILY ACTIVE 3) Non-VA TADALAFIL 5MG TAB 5MG BY MOUTH DAILY ACTIVE 5 Total Medications * Active problems - Computerized Problem List is the source for the followin. Hyperlipidemia ([facility] [id number]) 2. Impaired Fasting Glucose ([facility] [id number]) 3. Erectile Dysfunction ([facility] [id number]) 4. Tinnitus 5. Hearing loss 6. Exposure to Potentially Hazardous Substance ([facility] [id number]) 7. Syncope and collapse 8. Low back [...] Morbid obesity 21. History of tobacco use Scr: 0.75 mg/dL (based on labs drawn 11/01/22) eGFR: >90 mL/min (based on labs drawn 11/01/22) Calculated CrCl: 130.2 mL/min (based on Scr: 0.75mg/dL; HT: 182.88cm; WT: 124.3kg ASSESSMENT: Mr. Mak is a 68-year-old male [place] with a history of chronic low back pain s/p multiple surgeries to cervical and lumbar spine. [place] also followed by Non-VA providers for chronic pain related interventions. 's pain presentation remains stable compared to prior encounter. This is likely new baseline now that he is more active after returning work. [place] continues to tolerate use of pregabalin. Used shared decision making with [place] to continue for another week at current dose to further assess benefit. reports having enough pregabalin on hand to last until next encounter. At follow-up Renfrew may benefit from return to TID dosing or use of adjuvant therapy such as diclofenac gel for inflammatory related pain. A shared decision-making approach was used in the development of this plan, involving the [place] and clinician present. The [place] was provided the opportunity express questions or concerns, and the plan was adjusted as needed to address these concerns. verbalized understanding of the plan, including possible known risks and benefits, and had no additional questions. PLAN: 1. No changes made today - Continue pregabalin 200mg BID 2. Continue to monitor for changes in pain presentation F/U via telephone in 1 week; Pt instructed to contact clinic with any questions or concerns prior to next encounter. - Encounter Time: 30 minutes /jac/ HEMAL MCNAMARA CLINICAL PHARMACIST PRACTITIONER, PAIN Signed: 09/21/2023 14:30 HEMAL MCNAMARA [facility]
--- OUTSIDE RECORDS SUMMARY | 2024-05-20 08:40 | XMS_ITS | Encounter Summary ---
Author Name [facility] [place] [facility] [place] Address [address] [place] [address] Care Team Providers Care Steel Layout Worker Name Role Phone KRISTOPHER MAXWELL Primary Care [...] PRESCRIPT ION RX730 1 May 28, 2017 [id number] Weston MAK ILLIAM PATIENT CAREMARK PRESCRIPT ION RX730 1 May 28, 2017 [id number] [phone] Weston MAK ILLIAM PATIENT OPTUM RX PRESCRIPT ION RX May 28, 2022 THPRX [id number] [phone] Weston MAK ILLIAM PATIENT [facility] May 28, 2017 [facility] [id number] Weston MAK PATIENT [facility] PATRICIA Rincon May 28, 2017 [id number] Weston MAK PATIENT [facility] (WNR) TRICA RE(WN R) May 28, 2017 (WNR) [id number] [facility] (WNR) HMO May 28, 2014 [id number] Weston MAK PATIENT Selected Encounter This section includes the information on record at [place] for the Encounter. Date/Time Encounter Type Encounter Description Reason Pro vider Source Sep 07, 2023 11:52 AM Outpatient Encounter TELEPHONE/ANCILLARY IHE Encounter Template Text not used by [place] Plan of Treatment: Future Appointments (+ 6 months) and Future Tests (+/- 45 days) The Plan of Treatment section includes future care activities for the patient from all [place] treatmentfacilities. This section includes future appointments and future orders which are active, pending or scheduled. Future Appointments This section includes appointments that were scheduled to occur 6 months from the date of the Encounter, up to a maximum of 20 appointments. The data comes from all [place] treatment facilities. Appointment Date/Time Appointment Type Appointme nt Facility Name Sep 14, 2023 10:00 AM AMBULATORY [facility] MEDICINE [facility] [place] [facility] Sep 21, 2023 10:30 AM AMBULATORY - MEDICINE [facility] [place] [facility] September 28, 2023 08:30 AM AMBULATORY - MEDICINE [facility] [place] [facility] October 01, 2023 09:00 AM AMBULATORY - REHAB MEDICIN E [facility] [place] [facility] October 11, 2023 02:30 PM [facility] October 19, 2023 08:30 AM AMBULATORY - MEDICINE [facility] [place] [facility] Nov 13, 2023 01:30 PM AMBULATORY - MEDICINE [facility] [place] [facility] Dec 14, 2023 11:30 AM AMBULATORY - MEDICINE [facility] [place] [facility] Dec 28, 2023 10:00 AM AMBULATORY - MEDICINE [facility] [place] [facility] Jan 11, 2024 09:00 AM AMBULATORY - MEDICINE [facility] [place] [facility] Jan 14, 2024 11:00 AM AMBULATORY - REHAB MEDICIN E [facility] [place] [facility] Feb 08, 2024 08:30 AM AMBULATORY - MEDICINE [facility] [place] [facility] Feb 26, 2024 08:30 AM AMBULATORY - MEDICINE [place] [facility] [place] [facility] Advance Directives: All historical and current Section Date Range: From patient's date of to the date document was created. This section includes ALL of a patient's completed or amended VA Advance and Rescinded Directives. The entries below indicate that a directive exists for the patient, but an actual copy is not included with this document. The data comes from all [place] facilities. Date Advance Directives Provider Source Dec 02, 2020 ADVANCE DIRECTIVE ZAIRE COMER IE Encounter Notes: All associated encounter notes This section contains the clinical notes associated to the Encounter. Date/Time Encounter Note(s) Provider Source Sep 07, 2023 11:53 AM ADMINISTRATIVE NOTE: LOCAL TITLE: ADMINISTRATIVE RECALL NOTE STANDARD TITLE: ADMINISTRATIVE NOTE DATE OF NOTE: SEP 07, 2023@11:53 ENTRY DATE: SEP 07, 2023@11:53:27 AUTHOR: YESSI STONE EXP COSIGNER: URGENCY: STATUS: COMPLETED RTC orders: Unable to contact patient: Attempts to contact: 1st attempt: Left voicemail 2nd attempt: Letter mailed Disposition on Aug 3rd attempt: 4th attempt: PID 09/14/2023 DUE TO CONFLICT ON PROVIDER'S SCHEDULE LVM REQUESTING TO RENEGOTIATE TIME OF CALL TO 10AM- OK TO OB PER PROVIDER'S TEAMS MESSAGE. /jac/ YESSI STONE Signed: 09/07/2023 11:54 YESSI STONE [place] [facility] [place] [facility] Sep 07, 2023 11:52 AM LETTERS: LOCAL TITLE: PATIENT LETTER (B) STANDARD TITLE: LETTERS DATE OF NOTE: SEP 07, 2023@11:52 ENTRY DATE: SEP 07, 2023@11:53:02 AUTHOR: YESSI STONE COSIGNER: URGENCY: STATUS: COMPLETED [facility] Toll Free Number [facility] scheduling can be reached at ext. [phone] OR [phone] [facility]- ext. [phone] [facility]- ext. [phone] [facility]- ext. [phone] SEP 07, 2023 TEODORA MAK [address] [place] [address] [id number] Dear TEODORA MAK Thank you for choosing the Department of [facility] ([place]) [facility] as your primary choice for health care. As a partner in your health care, we are contacting you in writing since we have been unsuccessful in our attempts to reach you to date. We want to assure you we are doing everything possible to schedule Veterans for their VA medical care appointments. Our records indicate you are due for an appointment in PAIN CLINIC. If you would like to be seen, please contact [facility] at ext. [phone] to schedule an appointment. Thank you for your service to our nation, and we look forward to hearing from you soon. Sincerely, [facility] [address] [facility] [address] [place] [address] [place] [address] [facility] 25 [facility] [address] [place] [address] [place] [address] ext. [phone] [facility] 403 [facility] [address] [place] [address] [place] [address] ext. [phone] [facility] [address] [place] [address] ext. [phone] YESSI STONE [place] [facility] [place] [facility]
--- OUTSIDE RECORDS SUMMARY | 2024-05-20 08:40 | XMS_ITS | Encounter Summary ---
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 Role Phone KRISTOPHER MAXWELL Primary [...] PRESCRIPT ION RX730 1 May 28, 2017 [id number] OBDULIO,Weston DARION PATIENT [facility]EMARK PRESCRIPT ION RX730 1 May 28, 2017 [id number] Weston MAK DANIELLETAINAKaren PATIENT OPTUM RX PRESCRIPT ION RX May 28, 2022 [id number] OBDULIO,Weston MANSOORM PATIENT [facility] May 28, 2017 [facility] [id number] OBDULIOW ILLIAM PATIENT [facility] PLAN ALLEGRA Rincon May 28, 2017 [id number] OBDULIO,W ILLIAM PATIENT [facility] (R) TRICA RE(WN R) May 28, 2017 (WNR) [id number] [phone] OBDULIOW ILLIAM PATIENT [facility] (WNR) HMO May 28, 2014 [id number] OBDULIO,W ILLIAM PATIENT Selected Encounter This section includes the information on record at [place] for the Encounter. Date/Time Encounter Type Encounter Description Reason Provider Source Aug 31, 2023 09:00 AM MTMS BY [facility] 15 MIN PAIN CLINIC ICD-10-CM M54.50 Low back pain, unspecified HEMAL MCNAMARA [facility] Encounter Template Text not used by [place] Assessments - Encounter Diagnoses This section includes the primary and secondary diagnoses documented for the Encounter. Date/Time Primary/Secondary Diagnosis Diagnosis Name Provider Source Aug 31, 2023 09:10 AM PRIMARY Low back pain, unspecified HEMAL MCNAMARA [place] [facility] [place] [facility] Plan of Treatment: Future Appointments (+ [...] Appointment Type Appointme nt Facility Name Sep 07, 2023 10:00 AM AMBULATORY - MEDICINE [place] [facility] [place] [facility] Sep 14, 2023 10:00 AM AMBULATORY - MEDICINE [place] [facility] [place] [facility] Sep 21, 2023 10:30 AM AMBULATORY - MEDICINE [place] [facility] [place] [facility] September 28, 2023 08:30 AM AMBULATORY - MEDICINE [place] [facility] [facility] October 01, 2023 09:00 AM AMBULATORY - REHAB MEDICIN E [facility] [place] [facility] October 11, 2023 02:30 PM AMBULATORY - MEDICINE [place] [place] October 19, 2023 08:30 AM AMBULATORY - MEDICINE [facility] [place] [facility] Nov 13, 2023 01:30 PM AMBULATORY - MEDICINE [facility] [place] [facility] Dec 14, 2023 11:30 AM AMBULATORY - MEDICINE [facility] [facility] Dec 28, 2023 10:00 AM AMBULATORY - MEDICINE [facility] [facility] Jan 11, 2024 09:00 AM AMBULATORY - MEDICINE [facility] [place] [facility] Jan 14, 2024 11:00 AM AMBULATORY - REHAB MEDICIN E [facility] [place] [facility] Feb 08, 2024 08:30 AM AMBULATORY - MEDICINE [facility] [place] [facility] Feb 26, 2024 08:30 AM AMBULATORY - MEDICINE [facility] [place] [facility] Advance Directives: All historical and current [...] Dec 02, 2020 ADVANCE DIRECTIVE ZAIRE COMER [facility] Encounter Notes: All associated encounter notes This section contains the clinical notes associated to the Encounter. Date/Time Encounter Note(s) Provider Source Aug 31, 2023 09:11 AM ACCOUNTING OF DISC LOSURES NOTE: LOCAL TITLE: STATE PRESCRIPTION DRUG MONITORING PROGRAM STANDARD TITLE: ACCOUNTING OF DISCLOSURES NOTE DATE OF NOTE: AUG 31, 2023@09:11:02 ENTRY DATE: AUG 31, 2023@09:11:02 AUTHOR: HEMAL MCNAMARA EXP COSIGNER: URGENCY: STATUS: COMPLETED This PDMP query was submitted by Hemal Mcnamara. The clinical justification for this PDMP query is to review controlled substances prescribed outside of the [facility], and any additional information that may become available, as an important component of standard clinical care, and in accordance with [facility] policy. Patient information was shared with the PDMP [place]. No prescription(s) for controlled substances outside the [place] were found in the last 90 days. 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 08/24/2023 3 08/24/2023 Pregabalin 100 Mg Capsule 28.00 14 Be [facility] [id number] Fl (4904) 0/0 /[place] 07/26/2023 2 07/26/2023 Oxycodone-Acetaminophen 5-325 40.00 5 Da Kay[place] [id number] [facility] (9935) 0/0 60.00 [place] 07/13/2023 2 07/13/2023 Oxycodone-Acetaminophen 5-325 40.00 3 Da Kaylen [id number] [facility] (9935) 0/0 100.00 [place] 06/13/2023 2 06/12/2023 Gabapentin 600 Mg Tablet 270.00 [address] [place] [id number] [place] (8260) 0/0 [place] 03/08/2023 1 03/06/2023 Gabapentin 600 Mg Tablet 270.00 90 [place] [id number] B[place] (8260) 0/0 [place] 11/01/2022 1 07/12/2022 Gabapentin 600 Mg Tablet 270.00 90 An [facility] [id number] Bishnu (8272) 1/ [place] 07/25/2022 2 07/12/2022 Gabapentin 600 Mg Tablet 270.00 90 An [facility] [id number] Bishnu (8272) 0/1 [place] 05/04/2022 2 05/01/2022 Gabapentin 600 Mg Tablet 270.00 90 [place] [id number] Bishnu (8272) 0/0 [place] 02/06/2022 1 02/02/2022 Gabapentin 600 Mg Tablet 270.00 90 [place] [id number] [place] (8272) 0/0 [place] // HEMAL MCNAMARA CLINICAL PHARMACIST PRACTITIONER, PAIN Signed: 08/31/2023 09:34 HEMAL MCNAMARA [place] [facility] [place] [facility] Aug 31, 2023 08:06 AM [facility]: LOCAL TITLE: PAIN CLINIC NOTE STANDARD TITLE: PAIN MEDICINE OUTPATIENT NOTE DATE OF NOTE: AUG 31, 2023@08:06 ENTRY DATE: AUG 31, 2023@08:06:52 AUTHOR: HEMAL MCNAMARA COSIGNER: URGENCY: STATUS: COMPLETED TEODORA Da Sivla is 68 year old WHITE MALE with a history of chronic low back pain, who presents to pharmacy pain management clinic today for routine follow-up appointment. Berta was seen for initial consult on 08/24/23 at which time gabapentin was converted to pregabalin. Today's encounter represents a focused follow-up of this transition. Please see consult note dated 08/24/23 for further details including pain history. SUBJECTIVE/OBJECTIVE: TEODORA Da Silva presents to clinic today in no apparent distress. [place] states he took last dose of gabapentin on Sunday night and started pregabalin on Sunday morning. He has been taking BID as prescribed. No issues with missed doses; uses a medication organizer. He states on the first day of use he felt a little dizzy around lunch time but that subsided with food. He is unsure if the related to the medication. No side effects noticed since then. In regards to pain, the pain quality remains unchanged but feels it a bit more present. This particularly noticeable first thing in the morning as it takes him a little longer to get going. Berta also completed [facility] [employer] since last encounter. He reports he found it to be similar to what he previously did with his Non-VA therapist. He enjoyed the course overall and has dug-out the meditation recordings from his therapist to continue mindfulness practices. Berta reports an interest in the Active Management of Pain program but cannot commit to it at this time d/t returning to work on 09/09. ----- PAIN SCREENING: PEG PAIN SCREENING TOOL [...] was performed. 1. Non-VA Acetaminophen 325mg - Use not assessed today 2. Pregabalin 100mg BID - Last filled 08/24/23 for 14-day supply - See above regarding use EVALUATION OF SOCIAL HISTORY: ---- TOBACCO USE: Denied. Quit ~30 yrs ago. ALCOHOL USE: Socially when at [employer]; 1-2 beers, 1-2x per week CANNABIS USE: Denied. OTHER ILLICIT SUBSTANCES: Denied. RISK MITIGATION: PDMP: Completed 08/24/23 with issuance of pregabalin C-SSRS: Completed 08/24/23 at initial consult; [place] screened negative * DIPHENHYDRAMINE Active and Recently [...] is the source for the followin. Hyperlipidemia ([facility] [id number]) 2. Impaired Fasting Glucose ([facility] [id number]) 3. Erectile Dysfunction ([facility] [id number]) 4. Tinnitus 5. Hearing loss 6. Exposure to Potentially Hazardous Substance ([facility] [id number]) 7. Syncope and collapse 8. Low back [...] (based on Scr: 0.75mg/dL; HT: 182.88cm; WT: 124.3kg) ASSESSMENT: Mr. Mak is a 68-year-old male with a history of chronic low back pain s/p multiple surgeries to cervical and lumbar spine. [place] also followed by Non-VA providers for chronic pain related interventions. Based on report and assessment today, appears to be tolerating use of pregabalin. No side effects reported. At this time [place] could benefit from titration of dose, will increase to pregabalin 75mg BID as part of cautious titration with respect to age and concern for potential development of ROSALVA. Reviewed previous education with regarding monitoring for changes in pain presentation and side effects. will contact clinic with any concerns. [place] is agreeable to plan. PDMP queried; results returned as expected. Prescription entered for window pick-up. Will issues short 14-day supply with anticipation of continued need to titrate dose. Encouraged to continue his mindfulness exercises at home. Referral to Active Management of Pain (AMP) remains an available in the future if [place] requests. A shared decision-making approach was used in the development of this plan, involving the [place] and clinician present. The [place] was provided the opportunity express questions or concerns, and the plan was adjusted as needed to address these concerns. [place] verbalized understanding of the plan, including possible known risks and benefits, and had no additional questions. PLAN: 1. Increase to Pregabalin 75mg TID (Total Daily Dose 225mg) - PDMP queried; results as returned as expected - Prescription ordered for window pick-up 2. encouraged to continue his mindfulness exercises F/U via F2F in 1 week per [place] preference; Pt instructed to contact clinic with any questions or concerns prior to next encounter. - Encounter Time: 30 minutes /jac/ HEMAL MCNAMARA CLINICAL PHARMACIST PRACTITIONER, PAIN Signed: 08/31/2023 09:55 HEMAL MCNAMARA [place] [facility]
--- OUTSIDE RECORDS SUMMARY | 2024-05-20 08:40 | XMS_ITS | Encounter Summary ---
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 Role Phone KRISTOPHER MAXWELL Primary Care [...] PRESCRIPT ION RX730 1 May 28, 2017 [id number] OBDULIOWeston DANIELLETAINAM PATIENT [facility] PRESCRIPT ION RX730 1 May 28, 2017 [id number] [phone] Weston MAKM PATIENT OPTUM RX PRESCRIPT ION RX May 28, 2022 [id number] Weston MAK ILLIAM PATIENT [facility] PLAN ALLEGRA Rincon May 28, 2017 [id number] Weston MAK PATIENT [facility] May 28, 2017 [facility] [id number] Weston MAK PATIENT [facility] (WNR) TRICA RE(WN R) May 28, 2017 (WNR) [id number] Weston MAK PATIENT [facility] (WNR) HMO May 28, 2014 [id number] Weston MAK PATIENT Selected Encounter This section includes the information on record at [place] for the Encounter. Date/Time Encounter Type Encounter Description Reason Pro vider Source Sep 25, 2023 11:54 AM Outpatient Encounter TELEPHONE/ANCILLARY IHE Encounter Template Text not used by [place] Plan of Treatment: Future Appointments (+ 6 months) and Future Tests (+/- 45 days) The Plan of Treatment section includes future care activities for the patient from all [place] treatmentfacilities. This section includes future appointments and future orders which are active, pending or scheduled. Future Appointments This section includes appointments that were scheduled to occur 6 months from the date of the Encounter, up to a maximum of 20 appointments. The data comes from all [place] treatment facilities. Appointment Date/Time Appointment Type Appointme nt Facility Name September 28, 2023 08:30 AM AMBULATORY - MEDICINE [facility] [place] [facility] October 01, 2023 09:00 AM AMBULATORY - REHAB MEDICIN E [facility] [place] [facility] October 11, 2023 02:30 PM AMBULATORY - MEDICINE [facility] October 19, 2023 08:30 AM AMBULATORY - MEDICINE [facility] [place] [facility] Nov 13, 2023 01:30 PM AMBULATORY - MEDICINE [facility] [place] [facility] Dec 14, 2023 11:30 AM AMBULATORY - MEDICINE [facility] [place] [facility] Dec 28, 2023 10:00 AM AMBULATORY - MEDICINE [facility] [place] [facility] Jan 11, 2024 09:00 AM AMBULATORY - MEDICINE [facility] [place] [facility] Jan 14, 2024 11:00 AM AMBULATORY - REHAB MEDICIN E [facility] [place] [facility] Feb 08, 2024 08:30 AM AMBULATORY - MEDICINE [place] [facility] [place] [facility] Feb 26, 2024 08:30 AM AMBULATORY - MEDICINE [facility] [facility] Mar 21, 2024 08:30 AM AMBULATORY - [facility] Advance Directives: All historical and current Section Date Range: From patient's date of to the date document was created. This section includes ALL of a patient's completed or amended [place] Advance and Rescinded Directives. The entries below indicate that a directive exists for the patient, but an actual copy is not included with this document. The data comes from all [place] facilities. Date Advance Directives Provider Source Dec 02, 2020 ADVANCE DIRECTIVE ANANDA COMERCY RENUKA REDDING IE Encounter Notes: All associated encounter notes This section contains the clinical notes associated to the Encounter. Date/Time Encounter Note(s) Provider Source Sep 25, 2023 11:55 AM ADMINISTRATIVE NOTE: LOCAL TITLE: ADMINISTRATIVE RECALL NOTE STANDARD TITLE: ADMINISTRATIVE NOTE DATE OF NOTE: SEP 25, 2023@11:55 ENTRY DATE: SEP 25, 2023@11:55:14 AUTHOR: YESSI STONE EXP COSIGNER: URGENCY: STATUS: COMPLETED RTC orders: Unable to contact patient: Attempts to contact: 1st attempt: Left voicemail 2nd attempt: Letter mailed Disposition on September 3rd attempt: 4th attempt: PID 09/28/2023 /jac/ YESSI STONE Signed: 09/25/2023 11:55 YESSI STONE [place] [facility] [place] [facility] Sep 25, 2023 11:54 AM LETTERS: LOCAL TITLE: PATIENT LETTER (B) STANDARD TITLE: LETTERS DATE OF NOTE: SEP 25, 2023@11:54 ENTRY DATE: SEP 25, 2023@11:54:50 AUTHOR: YESSI STONE EXP COSIGNER: URGENCY: STATUS: COMPLETED [facility] Toll Free Number [facility] scheduling can be reached at ext. [phone] [facility]- ext. [phone] [facility]- ext. [phone] [facility]- ext. [phone] SEP 25, 2023 TEODORA MAK [address] [place] [address] [phone] Dear TEODORA MAK Thank you for choosing the Department of [facility] ([place]) Medical [place] as your primary choice for health care. [...] would like to be seen, please contact [facility] at ext. [phone] to schedule an appointment. Thank you for your service to our nation, and we look forward to hearing from you soon. Sincerely, [facility] [address] [facility] [address] [place] [address] [place] [address] [facility] [address] [facility] [address] [place] [address] [place] [address] ext. [phone] [facility] [address] [address] [place] [address] ext. [phone] [facility] [address] [place] [address] ext. [phone] YESSI STONE [facility]
--- OUTSIDE RECORDS SUMMARY | 2024-05-20 08:40 | XMS_ITS ---
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 Name Role Phone KRISTOPHER MAXWELL Primary Care Provider [facility] brianda Insurance Providers: All historical and current [...] PRESCRIPT ION RX730 1 May 28, 2017 [id number] O[place] GUYM PATIENT CAREMARK PRESCRIPT ION [id number] 1 May 28, 2017 [id number] Weston MAK MANSOORM PATIENT OPTUM RX PRESCRIPT ION RX May 28, 2022 THPRX [id number] [phone] OBDULI[place] ILLIAM PATIENT [facility] PLAN ALLEGRA Rincon May 28, 2017 [id number] OBDULIOW ILLIAM PATIENT [facility] HEALTH PLAN USP May 28, 2017 [facility] [id number] OBDULIO,W ILLIAM PATIENT [facility] (WNR) TRICA RE(WN R) May 28, 2017 (WNR) [id number] OBDULIO,W [facility]LLIAM [facility]) H[facility] May 28, 2014 [id number] OBDULIO,W ILLIAM PATIENT Selected Encounter This section includes the information on record at [place] for the Encounter. Date/Time Encounter Type Encounter Description Reason Provider Source Aug 28, 2023 10:00 AM OFFICE O/P EST HI 40 MIN PAIN CLINIC ICD-10-CM G89.29 Other chronic pain Anupama PEÑALOZA IHE Encounter Template Text not used by [place] Assessments - Encounter Diagnoses This section includes the primary and secondary diagnoses documented for the Encounter. Date/Time Primary/Secondary Diagnosis Diagnosis Name Provider Source Aug 28, 2023 08:35 PM PRIMARY Other chronic pain JACQUI SCOTT [place] [facility] [place] [facility] Plan of Treatment: Future Appointments (+ 6 months) and Future Tests (+/- 45 days) The Plan of Treatment section includes future care activities for the patient from all [place] treatmentfacilities. This section includes future appointments and future orders which are active, pending or scheduled. Future Appointments This section includes appointments that were scheduled to occur 6 months from the date of the Encounter, up to a maximum of 20 appointments. The data comes from all [place] treatment facilities. Appointment Date/Time Appointment Type Appointme nt Facility Name Aug 31, 2023 09:00 AM AMBULATORY - MEDICINE [place] [facility] [place] [facility] Aug 31, 2023 10:00 AM AMBULATORY - REHAB MEDICIN E [place] [facility] [place] [facility] Sep 07, 2023 10:00 AM AMBULATORY - MEDICINE [place] [facility] [facility] Sep 14, 2023 10:00 AM AMBULATORY - MEDICINE [facility] [place] [facility] Sep 21, 2023 10:30 AM AMBULATORY - MEDICINE [place] [facility] [facility] September 28, 2023 08:30 AM AMBULATORY - MEDICINE [place] [facility] [place] [place] [facility] October 01, 2023 09:00 AM AMBULATORY - REHAB MEDICIN E [place] [facility] [place] [facility] October 11, 2023 02:30 PM AMBULATORY - MEDICINE [facility] October 19, 2023 08:30 AM AMBULATORY - MEDICINE [place] [facility] [place] [facility] Nov 13, 2023 01:30 PM AMBULATORY - MEDICINE [place] [facility] [place] [place] [facility] Dec 14, 2023 11:30 AM AMBULATORY - MEDICINE [place] [facility] [place] [place] [facility] Dec 28, 2023 10:00 AM AMBULATORY - MEDICINE [place] [facility] [place] [facility] Jan 11, 2024 09:00 AM AMBULATORY - MEDICINE [place] [facility] [place] [place] [facility] Jan 14, 2024 11:00 AM AMBULATORY - REHAB MEDICIN E [place] [facility] [place] [facility] Feb 08, 2024 08:30 AM AMBULATORY - MEDICINE [place] [facility] [place] [facility] Feb 26, 2024 08:30 AM AMBULATORY - MEDICINE [place] [facility] [place] [facility] Advance Directives: All historical and current Section Date Range: From patient's date of to the date document was created. This section includes ALL of a patient's completed or amended VA Advance and Rescinded Directives. The entries below indicate that a directive exists for the patient, but an actual copy is not included with this document. The data comes from all [place] facilities. Date Advance Directives Provider Source Dec 02, 2020 ADVANCE DIRECTIVE ZAIRE COMER [facility] Encounter Notes: All associated encounter notes This section contains the clinical notes associated to the Encounter. Date/Time Encounter Note(s) Provider Source Aug 28, 2023 08:38 PM PAIN CONSULT: LOCAL TITLE: CONSULT REPORT/EMPOWERED RELIEF NOTE STANDARD TITLE: PAIN CONSULT DATE OF NOTE: AUG 28, 2023@20:38 ENTRY DATE: AUG 28, 2023@20:39:08 AUTHOR: JACQUI SCOTT EXP COSIGNER: URGENCY: STATUS: COMPLETED [place] attended class this date, please see Empowered Relief Session Note for full details. /jac/ JACQUI SCOTT DPT PHYSICAL THERAPIST Signed: 08/28/2023 20:39 JACQUI SCOTT [place] [facility] [place] [facility] Aug 28, 2023 07:58 PM PAIN NOTE: LOCAL TITLE: EMPOWERED RELIEF SESSION NOTE STANDARD TITLE: PAIN NOTE DATE OF NOTE: AUG 28, 2023@19:58 ENTRY DATE: AUG 28, 2023@19:58:44 AUTHOR: JACQUI SCOTT EXP COSIGNER: URGENCY: STATUS: COMPLETED EMPOWERED RELIEF SESSION NOTE Has ADDENDA Empowered Relief Pain Education Class Provider/s facilitating todays session: MD Jacqui Etienne, PT, DPT Number of Veterans in attendance for todays session: 7 Length of session: 120 minutes = [place] participated in Empowered Relief Pain Education Class via [facility]. The [place] was provided with information on [facility] and has given verbal consent to use group [facility] services for their healthcare. The copy of the Group Telehealth Agreement was mailed to the . The 's location/emergency contact number were confirmed. The Emergency Call Relay Center (E911) was available. The visit was locked for security and privacy. identified with 2 identifiers: [x] Full Name [x] Address = [place] confirmed their willingness and interest in attending this Empowered Relief group class. [place] has acknowledged awareness and acceptance of: 1. The privacy restraints regarding participation in group sessions. 2. The need for respectful behavior toward other participants and providers. 3. The need to focus discussion to specific topics discussed during the session. = Summary of Empowered Relief: [place] attended Empowered Relief - Train Your Brain Away From Pain - a single session evidence- and skill-based class. During the class, learned the following skills: 1. How pain is processed in the brain and how to best manage it. 2. How to use a guided relaxation exercise to reduce the pain and stress response. [place] provided with a binaural audiofile with a guided relaxation exercise. was encouraged to practice this relaxation exercise daily for at least 2 months (can taper to less frequently afterwards). 3. How to counteract their unhelpful pain thoughts, which can worsen pain, by practicing positive or neutral thought reframing. 4. How to develop and utilize a list of self-soothing actions which can be used to interrupt negative pain thoughts and the pain response. At the end of the class, created their own Personalized Plan for pain relief which included the following items: 1) how often they will use the guided relaxation exercise, 2) a list of their most significant unhelpful pain thoughts and then a reframe of these unhelpful pain thoughts using the best friend talk technique and 3) a list of positive self-soothing actions which are used to interrupt the pain response. Additional comments: Mr. Mak actively engaged throughout today' class. 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 He offered comments throughout class and was observed completing his personalized plan for pain relief. /jac/ JACQUI SCOTT DPT PHYSICAL THERAPIST Signed: 08/28/2023 20:36 08/28/2023 ADDENDUM STATUS: COMPLETED Assessments were sent to the via text/email. These assessments were completed by TEODORA MAK on their own device on 08/28/2023 12:52:55 PM. PAIN, ENJOYMENT OF LIFE AND GENERAL ACTIVITY (PEG) Patient rated the following on a scale from 0 to 10, over the past week: 1. Average pain (0=No pain - 10=Pain as bad as you can imagine): 6 2. Pain interference with enjoyment of life (0=Does not interfere - 10=Completely Interferes): 3 3. Pain interference with general activity (0=Does not interfere - 10=Completely Interferes): 3 PEG Average Score: 4 Scores are an average of the 3 items and range from 0 to 10. Higher scores represent worse pain. /tisha SCOTT DPT PHYSICAL THERAPIST Signed: 08/28/2023 20:38 08/29/2023 ADDENDUM STATUS: COMPLETED Correction: attended class in-person. /tisha SCOTT DPT PHYSICAL THERAPIST Signed: 08/29/2023 17:01 09/30/2023 ADDENDUM STATUS: COMPLETED Assessments were sent to the [place] via text/email. These assessments were completed by TEODORA MAK on their own device on 09/27/2023 12:43:07 PM. PAIN, ENJOYMENT OF LIFE AND GENERAL ACTIVITY (PEG) Patient rated the following on a scale from 0 to 10, over the past week: 1. Average pain (0=No pain - 10=Pain as bad as you can imagine): 7 2. Pain interference with enjoyment of life (0=Does not interfere - 10=Completely Interferes): 4 3. Pain interference with general activity (0=Does not interfere - 10=Completely Interferes): 4 PEG Average Score: 5 Scores are an average of the 3 items and range from 0 to 10. Higher scores represent worse pain. PEG Avg. Pain Score (past 180 days): 09/27/2023 5 08/28/2023 4 /tisha SCOTT DPT PHYSICAL THERAPIST Signed: 09/30/2023 13:21 11/27/2023 ADDENDUM STATUS: COMPLETED Assessments were sent to the [place] via text/email. These assessments were completed by TEODORA MAK on their own device on 11/27/2023 1:14:46 PM. PAIN, ENJOYMENT OF LIFE AND GENERAL ACTIVITY (PEG) Patient rated the following on a scale from 0 to 10, over the past week: 1. Average pain (0=No pain - 10=Pain as bad as you can imagine): 8 2. Pain interference with enjoyment of life (0=Does not interfere - 10=Completely Interferes): 5 3. Pain interference with general activity (0=Does not interfere - 10=Completely Interferes): 7 PEG Average Score: 7 Scores are an average of the 3 items and range from 0 to 10. Higher scores represent worse pain. PEG Avg. Pain Score (past 180 days): 11/27/2023 7 09/27/2023 5 08/28/2023 4 /tisha SCOTT DPT PHYSICAL THERAPIST Signed: 11/27/2023 17:06 JACQIU SCOTT [place] [facility] [place] [facility]
--- OUTSIDE RECORDS SUMMARY | 2024-05-20 08:40 | XMS_ITS ---
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 Name Role Phone KRISTOPHER MAXWELL Primary Care [...] PRESCRIPT ION RX730 1 May 28, 2017 [id number] Weston MAK PATIENT CAREMARK PRESCRIPT ION RX730 1 May 28, 2017 [id number] OBDULIO,Weston MANSOORM PATIENT OPTUM RX PRESCRIPT ION RX May 28, 2022 [id number] [phone] OBDULIO,W ILLIAM PATIENT [facility] PLAN ALLEGRA Rincon May 28, 2017 [id number] [phone] OBDULIO,W ILLIAM PATIENT [facility] HEALTH PLAN USP May 28, 2017 [facility] [id number] [phone] OBDULIO,W ILLIAM PATIENT [facility] (WNR) TRICA RE(WN R) May 28, 2017 (WNR) [id number] OBDULIO,W ILLIAM [facility] HMO May 28, 2014 [id number] OBDULIO,W ILLIAM PATIENT Selected Encounter This section includes the information on record at [place] for the Encounter. Date/Time Encounter Type Encounter Description Reason Provider Source Sep 07, 2023 10:00 AM MTMS BY [place] 15 MIN PAIN CLINIC ICD-10-CM M54.50 Low back pain, unspecified HEMAL MCNAMARA E Encounter Template Text not used by MD Assessments - Encounter Diagnoses This section includes the primary and secondary diagnoses documented for the Encounter. Date/Time Primary/Secondary Diagnosis Diagnosis Name Provider Source Sep 07, 2023 10:08 AM PRIMARY Low back pain, unspecified HEMAL MCNAMARA [place] [facility] [place] [facility] Plan of Treatment: Future Appointments (+ 6 months) and Future Tests (+/- 45 days) The Plan of Treatment section includes future care activities for the patient from all [place] treatmentfacilities. This section includes future appointments and future orders which are active, pending or scheduled. Future Appointments This section includes appointments that were scheduled to occur 6 months from the date of the Encounter, up to a maximum of 20 appointments. The data comes from all [place] treatment facilities. Appointment Date/Time Appointment Type Appointme nt Facility Name Sep 14, 2023 10:00 AM AMBULATORY - MEDICINE [place] C [facility] [place] [facility] Sep 21, 2023 10:30 AM AMBULATORY - MEDICINE [place] C [facility] [place] [facility] September 28, 2023 08:30 AM AMBULATORY - MEDICINE [place] C [facility] [place] [facility] October 01, 2023 09:00 AM AMBULATORY - REHAB MEDICIN E [facility] [place] [facility] October 11, 2023 02:30 PM [facility] October 19, 2023 08:30 AM [...] 26, 2024 08:30 AM AMBULATORY - MEDICINE [place] C [facility] [place] [facility] Advance Directives: All historical and current Section Date Range: From patient's date of to the date document was created. This section includes ALL of a patient's completed or amended VA Advance and Rescinded Directives. The entries below indicate that a directive exists for the patient, but an actual copy is not included with this document. The data comes from all [place] facilities. Date Advance Directives Provider Source Dec 02, 2020 ADVANCE DIRECTIVE ZAIRE COMER [facility] Encounter Notes: All associated encounter notes This section contains the clinical notes associated to the Encounter. Date/Time Encounter Note(s) Provider Source Sep 07, 2023 10:08 AM ACCOUNTING OF DISC LOSURES NOTE: LOCAL TITLE: STATE PRESCRIPTION DRUG MONITORING PROGRAM STANDARD TITLE: ACCOUNTING OF DISCLOSURES NOTE DATE OF NOTE: SEP 07, 2023@10:08:53 ENTRY DATE: SEP 07, 2023@10:08:53 AUTHOR: HEMAL MCNAMARA EXP COSIGNER: URGENCY: STATUS: COMPLETED This PDMP query was submitted by Hemal Mcnamara. The clinical justification for this PDMP query is to review controlled substances prescribed outside of the [facility], and any additional information that may become available, as an important component of standard clinical care, and in accordance with [facility] policy. Patient information was shared with the PDMP Appriss [place]. Prescription(s) filled outside the [facility] in the last 90 days are noted. However, they do not raise significant safety concerns and do not influence the treatment plan at this time. Fill Date ID Written Drug Qty Days Prescriber Rx # Pharmacy Refill Daily Dose * Pymt Type DOG BEAUTICIAN 08/31/2023 3 08/31/2023 Pregabalin 75 Mg Capsule 42.00 14 Be Zana [id number] Md ([id number]) 0/0 /[facility] 08/24/2023 3 08/24/2023 Pregabalin 100 Mg Capsule 28.00 14 Be Zana [id number] Md ([id number]) 0/0 /[facility] 07/26/2023 2 07/26/2023 Oxycodone-Acetaminophen 5-325 40.[id number] [facility] ([id number]) 0/0 60.00 [facility] [place] 07/13/2023 2 07/13/2023 Oxycodone-Acetaminophen 5-325 40.[id number] [facility] (9935) 0/0 100.00 [facility] [place] 06/13/2023 2 06/12/2023 Gabapentin 600 Mg Tablet 270.00 90 [place] [id number] Bishnu (8260) 0/0 [facility] [place] 03/08/2023 1 03/06/2023 Gabapentin 600 Mg Tablet 270.00 90 [place] [id number] Bishnu (8260) 0/0 [facility] [place] 11/01/2022 1 07/12/2022 Gabapentin 600 Mg Tablet 270.00 90 An [facility] [id number] Ibshnu (8272) / [facility] [place] 07/25/2022 2 07/12/2022 Gabapentin 600 Mg Tablet 270.00 90 An [facility] [id number] Bsihnu (8272) 0/ [facility] [place] 05/04/2022 2 05/01/2022 Gabapentin 600 Mg Tablet 270.00 90 [place] [id number] Bishnu (8272) 0/0 [facility] [place] 02/06/2022 1 02/02/2022 Gabapentin 600 Mg Tablet 270.00 90 [place] [id number] Bishnu (8272) 0/0 [place] [facility] [place] /jac/ HEMAL MCNAMARA CLINICAL PHARMACIST PRACTITIONER, PAIN Signed: 09/07/2023 16:02 HEMAL MCNAMARA MD [facility] [place] [facility] Sep 07, 2023 08:22 AM PAIN MEDICINE OUTP ATIENT NOTE: LOCAL TITLE: PAIN CLINIC NOTE STANDARD TITLE: PAIN MEDICINE OUTPATIENT NOTE DATE OF NOTE: SEP 07, 2023@08:22 ENTRY DATE: SEP 07, 2023@08:22:24 AUTHOR: HEMAL MCNAMARA COSIGNER: URGENCY: STATUS: COMPLETED TEODORA Da Silva is 68 year old WHITE MALE with a history of chronic low back pain, who presents to pharmacy pain management clinic today for routine follow-up appointment. was last seen in clinic on 08/24/23 at which time pregabalin was titrated to 75mg TID. Please see previous pain clinic notes for further details. SUBJECTIVE/OBJECTIVE: TEODORA Da Silva presents to clinic today in no apparent distress. He is excited to start bringing supplies [place] to [place] where is spends most of the summer months. He is also returning to work this Sunday (09/09) after leave for shoulder surgery. Mcbee reports he has been taking pregabalin 75mg TID as instructed. He reports right now he has some difficulty with mid-day dose as he is out of the house often during this time. He denies missed dose but reports he may take it later in the afternoon. He expects this to improve once he returns to work as he keeps a medication organizer on his desk as a reminder. denies side effects from use. He report some improved benefit from last appointment; states he thinks it is on the level of gabapentin now . He describes the pain being deadened but present. He provides a pain score today of 7 out of 10, with 10 being the most severe. Damp weather increases the pain level. Over the last week, he feels average has been around 5-7/10. Mcbee reports he continues to use his mind mantras after being reminded of them at [facility]. -- PAIN SCREENING: PEG PAIN SCREENING TOOL [...] reconciliation was performed. #1. Non-VA Acetaminophen 325mg #2. Pregabalin 75mg TID - Last filled 08/31/23 for 14-day supply - See above regarding use EVALUATION OF SOCIAL HISTORY: ---- TOBACCO USE: Denied. Quit ~ 30 ys ago ALCOHOL USE: Socially when at [employer]; 1-2 beers, 1-2x per week CANNABIS USE: Denied. OTHER ILLICIT SUBSTANCES: Denied. RISK MITIGATION: PDMP: Completed 08/31/23 with issuance of pregabalin C-SSRS: Completed 08/24/23 at initial consult; Mcbee screened negative * DIPHENHYDRAMINE Active and Recently Outpatient Medications (excluding Supplies): Active Outpatient Medications Status 1) ASPIRIN 81MG EC TAB TAKE ONE TABLET BY MOUTH ONCE ACTIVE DAILY TO PREVENT STROKE/HEART ATTACK 2) PREGABALIN 75MG ORAL CAP TAKE ONE CAPSULE BY MOUTH ACTIVE THREE TIMES A DAY ; THIS REPLACES GABAPENTIN Active Non-VA Medications Status 1) Non-VA ACETAMINOPHEN 325MG TAB 1300MG BY MOUTH THREE ACTIVE TIMES DAILY NEEDED 2) Non-VA ALFUZOSIN HCL 10MG SA TAB 10MG BY MOUTH DAILY ACTIVE 3) Non-VA TADALAFIL 5MG TAB 5MG BY MOUTH DAILY ACTIVE 5 Total Medications * Active problems - Computerized Problem List is the source for the followin. Hyperlipidemia ([facility] [id number]) 2. Impaired Fasting Glucose ([facility] [id number]) 3. Erectile Dysfunction ([facility] [id number]) 4. Tinnitus 5. Hearing loss 6. Exposure to Potentially Hazardous Substance ([facility] [id number]) 7. Syncope and collapse 8. Low back [...] ASSESSMENT: Mr. Mak is a 68-year-old male Mcbee with a history of chronic low back pain s/p multiple surgeries to cervical and lumbar spine. also followed by Non-VA providers for chronic pain related interventions. Based on report and assessment today, Mcbee appears to finding benefit from increase in pregabalin dose performed 08/31/23. denies side effects related to use. At this time reasonable to consider further titration of dose. agreed with this recommendation. Discussed options for titration (150mg BID vs. 100mg TID). Mcbee reports he would prefer to keep TID dosing as this is what he has been used to. PDMP queried; results returned as expected. Prescription was electronically for outpatient pharmacy window pick-up. will continue to monitor for ROSALVA and changes in pain presentation. A shared decision-making approach was used in the development of this plan, involving the Mcbee and clinician present. The was provided the opportunity express questions or concerns, and the plan was adjusted as needed to address these concerns. verbalized understanding of the plan, including possible known risks and benefits, and had no additional questions. PLAN: 1. Increase to pregabalin 100mg TID (total daily dose 300mg) - PDMP queried; results returned as expected 2. Mcbee will continue to monitor for changes in pain presentation F/U via telephone in 1 week; Pt instructed to contact clinic with any questions or concerns prior to next encounter. - Encounter Time: 30 minutes /jac/ HEMAL MCNAMARA CLINICAL PHARMACIST PRACTITIONER, PAIN Signed: 09/07/2023 16:02 HEMAL MCNAMARA [place] [facility] [place] [facility]
--- OUTSIDE RECORDS SUMMARY | 2024-05-20 08:40 | XMS_ITS | Encounter Summary ---
Author Name [place] Address [address] [place] [address] Care Team Providers Care Quenching Machine Operator Name Role Phone KRISTOPHER MAXWELL Primary Care Provider [facility] Insurance Providers: All historical and current [...] PRESCRIPT ION [id number] 1 May 28, 2017 [id number] OBDULIOWeston DANIELLETAINAM PATIENT CAREMARK PRESCRIPT ION [id number] 1 May 28, 2017 [id number] Weston MAKM PATIENT OPTUM RX PRESCRIPT ION RX May 28, 2022 THPRX [id number] Weston MAK ILLIAM PATIENT [facility] PLAN ALLEGRA Rincon May 28, 2017 [id number] Weston MAK PATIENT [facility] HEALTH PLAN USP May 28, 2017 [facility] [id number] [phone] Weston MAK PATIENT [facility] (WNR) TRICA RE(WN R) May 28, 2017 (WNR) [id number] Weston MAK PATIENT [facility] (WNR) HMO May 28, 2014 [id number] Weston MAK PATIENT Selected Encounter This section includes the information on record at [place] for the Encounter. Date/Time Encounter Type Encounter Description Reason Pro vider Source Sep 20, 2023 10:36 AM Outpatient Encounter TELEPHONE/ANCILLARY IHE Encounter Template Text not used by CT Plan of Treatment: Future Appointments (+ 6 months) and Future Tests (+/- 45 days) The Plan of Treatment section includes future care activities for the patient from all CT treatmentfacilities. This section includes future appointments and future orders which are active, pending or scheduled. Future Appointments This section includes appointments that were scheduled to occur 6 months from the date of the Encounter, up to a maximum of 20 appointments. The data comes from all [place] treatment facilities. Appointment Date/Time Appointment Type Appointme nt Facility Name Sep 21, 2023 10:30 AM AMBULATORY - MEDICINE [place] [facility] [facility] September 28, 2023 08:30 AM AMBULATORY - MEDICINE [place] [facility] [place] [facility] October 01, 2023 09:00 AM AMBULATORY - REHAB MEDICIN E [place] [facility] [place] [facility] October 11, 2023 02:30 PM AMBULATORY - MEDICINE [facility] October 19, 2023 08:30 AM AMBULATORY - MEDICINE [place] [facility] [place] [facility] Nov 13, 2023 01:30 PM AMBULATORY - MEDICINE [place] [facility] [place] [facility] Dec 14, 2023 11:30 AM AMBULATORY - MEDICINE [place] [facility] [place] [facility] Dec 28, 2023 10:00 AM AMBULATORY - MEDICINE [place] [facility] [place] [facility] Jan 11, 2024 09:00 AM AMBULATORY - MEDICINE [place] [facility] [place] [facility] Jan 14, 2024 11:00 AM AMBULATORY - REHAB MEDICIN E [place] [facility] [place] [facility] Feb 08, 2024 08:30 AM AMBULATORY - MEDICINE [facility] C [facility] [place] [facility] Feb 26, 2024 08:30 AM AMBULATORY - MEDICINE [facility] C [facility]L [place] [facility] Mar 21, 2024 08:30 AM AMBULATORY - MEDICINE [facility] Advance Directives: All historical and current Section Date Range: From patient's date of to the date document was created. This section includes ALL of a patient's completed or amended CT Advance and Rescinded Directives. The entries below indicate that a directive exists for the patient, but an actual copy is not included with this document. The data comes from all CT facilities. Date Advance Directives Provider Source Dec 02, 2020 ADVANCE DIRECTIVE SOULEYMANEZAIRE RENUKA MÉNDEZ IE Encounter Notes: All associated encounter notes This section contains the clinical notes associated to the Encounter. Date/Time Encounter Note(s) Provider Source Sep 20, 2023 10:36 AM TELEPHONE ENCOUNTE R NOTE: LOCAL TITLE: TELEPHONE NOTE/SPECIALTY CLINIC STANDARD TITLE: TELEPHONE ENCOUNTER NOTE DATE OF NOTE: SEP 20, 2023@10:36 ENTRY DATE: SEP 20, 2023@10:36:47 AUTHOR: LAURA BOOKER EXP COSIGNER: URGENCY: STATUS: COMPLETED Called and spoke with pt to remind them that they have a telephone appt with the Pain clinic on 09/21/2023 at 1030am. /jac/ LAURA BOOKER ADVANCED HAND DRY CLEANER Signed: 09/20/2023 10:[address] [facility]
--- OUTSIDE RECORDS SUMMARY | 2024-05-20 08:40 | XMS_ITS ---
Author Name Department [place] Address [address] [place] [address] Care Team Providers Care Director Business Integration Name Role Phone KRISTOPHER MAXWELL Primary Care [...] PRESCRIPT ION RX730 1 May 28, 2017 [id number] Weston MAK MANSOORKaren PATIENT [facility] PRESCRIPT ION RX730 1 May 28, 2017 [id number] Weston MAK PATIENT OPTUM RX PRESCRIPT ION RX May 28, 2022 THPRX [id number] [phone] Weston MAK PATIENT [facility] HEALTH PLAN ALLEGRA Lamar May 28, 2017 [id number] OBDULIO,W ILLIAM PATIENT [facility] HEALTH PLAN USP May 28, 2017 [facility] [id number] OBDULIO,W ILLIAM PATIENT [facility] (WNR) TRICA RE(WN R) May 28, 2017 (WNR) [id number] OBDULIO,W ILLIAM PATIENT [facility] (WNR) HMO May 28, 2014 [id number] OBDULIO,W ILLIAM PATIENT Selected Encounter This section includes the information on record at [place] for the Encounter. Date/Time Encounter Type Encounter Description Reason Provider Source Aug 31, 2023 10:00 AM HEARING AID FITTING/CHECKIN G AUDIOLOGY ICD-10-CM Z46.1 Encounter for fitting and adjustment of hearing aid GRETCHEN GRANADOS IHE Encounter Template Text not used by [place] Assessments - Encounter Diagnoses This section includes the primary and secondary diagnoses documented for the Encounter. Date/Time Primary/Secondary Diagnosis Diagnosis Name Provider Source Aug 31, 2023 10:11 AM PRIMARY Encounter for fitting and adjustment of hearing aid GRETCHEN GRANADOS [place] [facility] [facility] Aug 31, 2023 10:11 AM SECONDARY Sensorineural hearing loss, bilateral ROBERTAGRETCHEN E [place] [facility] [facility] Plan of Treatment: Future Appointments (+ [...] 07, 2023 10:00 AM AMBULATORY - MEDICINE [place] [facility] Sep 14, 2023 10:00 AM AMBULATORY - MEDICINE [place] [facility] Sep 21, 2023 10:30 AM AMBULATORY - MEDICINE [place] [facility] September 28, 2023 08:30 AM AMBULATORY - MEDICINE [place] [facility] [place] [facility] October 01, 2023 09:00 AM AMBULATORY - REHAB MEDICIN E [place] [facility] [place] [facility] October 11, 2023 02:30 PM AMBULATORY - MEDICINE [facility] October 19, 2023 08:30 AM AMBULATORY - MEDICINE [place] [facility] [place] [facility] Nov 13, 2023 01:30 PM AMBULATORY - MEDICINE [place] [facility] [place] [facility] Dec 14, 2023 11:30 AM AMBULATORY - MEDICINE [place] [facility] [place] [facility] Dec 28, 2023 10:00 AM AMBULATORY - MEDICINE [place] [facility] [place] [facility] Jan 11, 2024 09:00 AM AMBULATORY - MEDICINE [place] [facility] [place] [facility] Jan 14, 2024 11:00 AM AMBULATORY - REHAB MEDICIN E [place] [facility] [place] [facility] Feb 08, 2024 08:30 AM AMBULATORY - MEDICINE [place] [facility] [place] [facility] Feb 26, 2024 08:30 AM AMBULATORY - MEDICINE [place] [facility] [place] [facility] Advance Directives: All historical and current [...] Dec 02, 2020 ADVANCE DIRECTIVE ZAIRE COMER [facility] Encounter Notes: All associated encounter notes This section contains the clinical notes associated to the Encounter. Date/Time Encounter Note(s) Provider Source Aug 31, 2023 09:54 AM AUDIOLOGY E & M NO TE: LOCAL TITLE: AUDIOLOGY CLINIC STANDARD TITLE: AUDIOLOGY E & M NOTE DATE OF NOTE: AUG 31, 2023@09:54 ENTRY DATE: AUG 31, 2023@09:54:06 AUTHOR: GRETCHEN GRANADOS COSIGNER: URGENCY: STATUS: COMPLETED AUDIOLOGY CLINIC Has ADDENDA has a history of bilateral sensorineural hearing loss. He was seen on 4-5-24 for hearing aid follow up regarding his Melanie BTEs. He requests no adjustments and states he has no problems. He requests a duplicate set of earmolds today so he can be seen for hearing aid maintenance every three months instead of every month. Aids were connected to [facility] and no updates were needed. Data log was read out, he uses the aids an estimated 5 hours per day. A duplicate set of earmolds were ordered today with impressions on file. will pick these up at his hearing aid maintenance appointment scheduled for September. /jac/ Eun DA SILVA, [facility]-A STAFF LADDER OPERATOR Signed: 08/31/2023 10:15 09/10/2023 ADDENDUM STATUS: COMPLETED L&R earmolds received and certified, placed in black cabinet for upcoming HT appoinment in September. /tisha CASTELLANO Audiology Health Social Worker Masters Signed: 09/10/2023 15:16 GRETCHEN GRANADOS CNTRL [facility]
--- OUTSIDE RECORDS SUMMARY | 2024-05-20 08:40 | XMS_ITS | Encounter Summary ---
Author Name [place] Address [address] [place] [address] Care Team Providers Care Street Superintendent Name Role Phone KRISTOPHER MAXWELL Primary Care Provider [facility] Insurance Providers: All historical [...] PRESCRIPT ION RX730 1 May 28, 2017 [id number] OBDULIOWeston SNOWM PATIENT CAREMARK PRESCRIPT ION RX730 1 May 28, 2017 [id number] Weston MAKM PATIENT OPTUM RX PRESCRIPT ION RX May 28, 2022 THPRX [id number] OBDULIO,W ILLIAM PATIENT [facility] PLAN ALLEGRA Rincon May 28, 2017 [id number] [phone] Weston MAK PATIENT [facility] HEALTH PLAN USP May 28, 2017 [facility] [id number] [phone] Weston MAK PATIENT [facility] (R) TRICA RE(WN R) May 28, 2017 (WNR) [id number] Weston MAK PATIENT [facility] (WNR) HMO May 28, 2014 [id number] Weston MAK PATIENT Selected Encounter This section includes the information on record at [place] for the Encounter. Date/Time Encounter Type Encounter Description Reason Pro vider Source Sep 06, 2023 09:13 AM Outpatient Encounter PAIN CLINIC IHE Encounter Template Text not used by [place] Plan of Treatment: Future Appointments (+ 6 [...] - MEDICINE [place] [facility] [place] [facility] Sep 14, 2023 10:00 AM AMBULATORY - MEDICINE [place] [facility] [place] [facility] Sep 21, 2023 10:30 AM AMBULATORY - MEDICINE [place] [facility] [facility] September 28, 2023 08:30 AM AMBULATORY - MEDICINE [place] [facility] [facility] October 01, 2023 09:00 AM AMBULATORY - REHAB MEDICIN E [place] [facility] [place] [facility] October 11, 2023 02:30 PM AMBULATORY - MEDICINE [facility] October 19, 2023 08:30 AM AMBULATORY - MEDICINE [place] [facility] [place] [facility] Nov 13, 2023 01:30 PM AMBULATORY - MEDICINE [place] [facility] [facility] Dec 14, 2023 11:30 AM AMBULATORY - MEDICINE [place] [facility] [place] [facility] Dec 28, 2023 10:00 AM AMBULATORY - MEDICINE [place] [facility] [place] [facility] Jan 11, 2024 09:00 AM AMBULATORY - MEDICINE [place] [facility] [place] [facility] Jan 14, 2024 11:00 AM AMBULATORY - REHAB MEDICIN E [place] [facility] [place] [facility] Feb 08, 2024 08:30 AM AMBULATORY - MEDICINE [place] [facility] [place] [facility] Feb 26, 2024 08:30 AM AMBULATORY - [facility]IC[facility] [place] [facility] Advance Directives: All historical and current [...] Dec 02, 2020 ADVANCE DIRECTIVE ZAIRE COMER [facility] IE Encounter Notes: All associated encounter notes This section contains the clinical notes associated to the Encounter. Date/Time Encounter Note(s) Provider Source Sep 06, 2023 09:13 AM TELEPHONE ENCOUNTE R NOTE: LOCAL TITLE: TELEPHONE NOTE/SPECIALTY CLINIC STANDARD TITLE: TELEPHONE ENCOUNTER NOTE DATE OF NOTE: SEP 06, 2023@09:13 ENTRY DATE: SEP 06, 2023@09:13:53 AUTHOR: YESSI STONE COSIGNER: URGENCY: STATUS: COMPLETED Called and spoke with pt to reminded them that they have a FTF appt with the Pain clinic on 09/07/2023 at 1000. Location was confirmed. /jac/ YESSI STONE Signed: 09/06/2023 09:14 YESSI STONE [place] [facility] [facility]
--- OUTSIDE RECORDS SUMMARY | 2024-05-20 08:40 | XMS_ITS | Encounter Summary ---
Author Name Department [place] Address [address] [place] [address] Care Team Providers Care Weigher Alloy Name Role Phone KRISTPOHER MAXWELL Primary Care Provider [facility] Insurance Providers: All historical [...] PRESCRIPT ION RX730 1 May 28, 2017 [id number] [phone] OBDULIOWeston DANIELLETAINAM PATIENT [facility] PRESCRIPT ION RX730 1 May 28, 2017 [id number] [phone] Weston MAKM PATIENT OPTUM RX PRESCRIPT ION RX May 28, 2022 THPRX [id number] [phone] Weston MAK ILLIAM PATIENT [facility] PLAN ALLEGRA Rincon May 28, 2017 [id number] Weston MAK PATIENT [facility] HEALTH PLAN USP May 28, 2017 [facility] [id number] [phone] Weston MAK PATIENT [facility] (WNR) TRICA RE(WN R) May 28, 2017 (WNR) [id number] Weston MAK PATIENT [facility] (WNR) HMO May 28, 2014 [id number] Weston MAK PATIENT Selected Encounter This section includes the information on record at [place] for the Encounter. Date/Time Encounter Type Encounter Description Reason Pro vider Source Sep 13, 2023 10:52 AM Outpatient Encounter TELEPHONE/ANCILLARY IHE Encounter Template Text not used by [place] Plan of Treatment: Future Appointments (+ 6 months) and Future Tests (+/- 45 days) The Plan of Treatment section includes future care activities for the patient from all [place] treatmentfacilities. This section includes future appointments and future orders which are active, pending or scheduled. Future Appointments This section includes appointments that were scheduled to occur 6 months from the date of the Encounter, up to a maximum of 20 appointments. The data comes from all [place] treatment facilities. Appointment Date/Time Appointment Type Appointme nt Facility Name Sep 14, 2023 10:00 AM AMBULATORY - MEDICINE [place] [facility] [place] [facility] Sep 21, 2023 10:30 AM AMBULATORY - MEDICINE [place] [facility] [place] [facility] September 28, 2023 08:30 AM AMBULATORY - MEDICINE [place] [facility] [place] [facility] October 01, 2023 09:00 AM AMBULATORY - REHAB MEDICIN E [place] [facility] [place] [facility] October 11, 2023 02:30 PM [facility] October 19, 2023 08:30 AM AMBULATORY - MEDICINE [place] [facility] [place] [facility] Nov 13, 2023 01:30 PM AMBULATORY - MEDICINE [place] [facility] [place] [facility] Dec 14, 2023 11:30 AM AMBULATORY - MEDICINE [place] [facility] [place] [facility] Dec 28, 2023 10:00 AM AMBULATORY - MEDICINE [place] [facility] [place] [facility] Jan 11, 2024 09:00 AM AMBULATORY - MEDICINE [place] [facility] Jan 14, 2024 11:00 AM AMBULATORY - REHAB MEDICIN E [place] [facility] [place] [facility] Feb 08, 2024 08:30 AM AMBULATORY - MEDICINE [place] [facility] Feb 26, 2024 08:30 AM [facility] Advance Directives: All historical and current Section Date Range: From patient's date of to the date document was created. This section includes ALL of a patient's completed or amended [place] Advance and Rescinded Directives. The entries below indicate that a directive exists for the patient, but an actual copy is not included with this document. The data comes from all [place] facilities. Date Advance Directives Provider Source Dec 02, 2020 ADVANCE DIRECTIVE SOULEYMANEZAIRE RENUKA MÉNDEZ IE Encounter Notes: All associated encounter notes This section contains the clinical notes associated to the Encounter. Date/Time Encounter Note(s) Provider Source Sep 13, 2023 10:52 AM TELEPHONE ENCOUNTE R NOTE: LOCAL TITLE: TELEPHONE NOTE/SPECIALTY CLINIC STANDARD TITLE: TELEPHONE ENCOUNTER NOTE DATE OF NOTE: SEP 13, 2023@10:52 ENTRY DATE: SEP 13, 2023@10:52:58 AUTHOR: YESSI STONE COSIGNER: URGENCY: STATUS: COMPLETED Call attempt was made to remind vet they have a tele appt with the Pain clinic on 09/14/2023 at 1000. No answer, lvm. /jac/ YESSI STONE Signed: 09/13/2023 10:53 [facility]I STONE [facility]
--- OUTSIDE RECORDS SUMMARY | 2024-05-20 08:40 | XMS_ITS | Encounter Summary ---
Author Name [place] Address [address] [place] [address] Care Team Providers Care Tyre Builder Name Role Phone KRISTOPHER MAXWELL Primary Care [...] PRESCRIPT ION RX730 1 May 28, 2017 [id number] [phone] Weston MAK ILLIAM PATIENT [facility] PRESCRIPT ION RX730 1 May 28, 2017 [id number] Wesotn MAK ILLIAM PATIENT OPTUM RX PRESCRIPT ION RX May 28, 2022 THPRX [id number] OBDULIO,W ILLIAM PATIENT [facility] May 28, 2017 [facility] [id number] Weston MAK PATIENT [facility] PLAN PATRICIA Rincon May 28, 2017 [id number] [phone] Weston MAK PATIENT [facility] (R) TRICA RE(WN R) May 28, 2017 (WNR) [id number] Wesotn MAK PATIENT [facility] (WNR) HMO May 28, 2014 [id number] Weston MAK PATIENT Selected Encounter This section includes the information on record at [place] for the Encounter. Date/Time Encounter Type Encounter Description Reason Pro vider Source Aug 30, 2023 11:18 AM Outpatient Encounter PAIN CLINIC IHE Encounter Template Text not used by [place] Plan of Treatment: Future Appointments (+ 6 months) and Future Tests (+/- 45 days) The Plan of Treatment section includes future care activities for the patient from all [place] treatmentfacilities. This section includes future appointments and future orders which are active, pending or scheduled. Future Appointments This section includes appointments that were scheduled to occur 6 months from the date of the Encounter, up to a maximum of 20 appointments. The data comes from all [place] treatment facilities. Appointment Date/Time Appointment Type Appointme nt Facility Name Aug 31, 2023 09:00 AM AMBULATORY - MEDICINE [place] [facility] Aug 31, 2023 10:00 AM AMBULATORY - REHAB MEDICIN E [place] [facility] Sep 07, 2023 10:00 AM AMBULATORY - MEDICINE [place] [facility] Sep 14, 2023 10:00 AM AMBULATORY - MEDICINE [place] [facility] Sep 21, 2023 10:30 AM AMBULATORY - MEDICINE [place] [facility] September 28, 2023 08:30 AM AMBULATORY - MEDICINE [place] [facility] October 01, 2023 09:00 AM AMBULATORY - REHAB MEDICIN E [place] [facility] [place] [facility] October 11, 2023 02:30 PM AMBULATORY - MEDICINE [facility] October 19, 2023 08:30 AM AMBULATORY - MEDICINE [place] [facility] Nov 13, 2023 01:30 PM AMBULATORY - MEDICINE [place] [facility] Dec 14, 2023 11:30 AM AMBULATORY - MEDICINE [place] [facility] Dec 28, 2023 10:00 AM AMBULATORY - MEDICINE [place] [facility] Jan 11, 2024 09:00 AM AMBULATORY - MEDICINE [place] [facility] Jan 14, 2024 11:00 AM AMBULATORY - REHAB MEDICIN E [place] [facility] [facility] Feb 08, 2024 08:30 AM AMBULATORY - MEDICINE [place] C [place] [facility] Feb 26, 2024 08:30 AM AMBULATORY - MEDICINE [place] [facility] Advance Directives: All historical and current Section Date Range: From patient's date of to the date document was created. This section includes ALL of a patient's completed or amended [place] Advance and Rescinded Directives. The entries below indicate that a directive exists for the patient, but an actual copy is not included with this document. The data comes from all [place] facilities. Date Advance Directives Provider Source Dec 02, 2020 ADVANCE DIRECTIVE ZAIRE COMER [facility] IE Encounter Notes: All associated encounter notes This section contains the clinical notes associated to the Encounter. Date/Time Encounter Note(s) Provider Source Aug 30, 2023 11:18 AM TELEPHONE ENCOUNTE R NOTE: LOCAL TITLE: TELEPHONE NOTE/SPECIALTY CLINIC STANDARD TITLE: TELEPHONE ENCOUNTER NOTE DATE OF NOTE: AUG 30, 2023@11:18 ENTRY DATE: AUG 30, 2023@11:18:14 AUTHOR: LAURA BOOKER EXP COSIGNER: URGENCY: STATUS: COMPLETED Called and spoke with pt to remind them that they have a FTF appt with the Pain clinic on 08/31/2023 at 900. Location was confirmed /jac/ LAURA BOOKER [employer] Signed: 08/30/2023 11:18 [facility]OOKER [facility]
--- OUTSIDE RECORDS SUMMARY | 2024-05-20 08:41 | XMS_ITS | Encounter Summary ---
Author Name [place] Address [address] [place] [address] Care Team Providers Care Lumber Sorter Name Role Phone KRISTOPHER MAXWELL Primary Care Provider [facility] Insurance Providers: All historical [...] PRESCRIPT ION RX730 1 May 28, 2017 [id number] [phone] Weston MAK PATIENT [facility] PRESCRIPT ION RX730 1 May 28, 2017 [id number] Weston MAK PATIENT OPTUM RX PRESCRIPT ION RX May 28, 2022 THPRX [id number] [phone] Weston MAKM PATIENT [facility] PLAN CHRISTINA Rincon May 28, 2017 [id number] [phone] Weston MAK PATIENT [facility] PLAN [facility] May 28, 2017 [facility] [id number] OBDULIO,W ILLIAM PATIENT [facility] (WNR) TRICA RE(WN R) May 28, 2017 (WNR) [id number] OBDULIO,W ILLIAM PATIENT [facility] (WNR) HMO May 28, 2014 [id number] OBDULIO,W ILLIAM PATIENT Selected Encounter This section includes the information on record at [place] for the Encounter. Date/Time Encounter Type Encounter Description Reason Pro vider Source IHE Encounter Template Text not used by CT Advance Directives: All historical and current Section [...] Dec 02, 2020 ADVANCE DIRECTIVE [facility]
--- OUTSIDE RECORDS SUMMARY | 2024-05-20 08:41 | XMS_ITS | Encounter Summary ---
Author Name [place] Address [address] [place] [address] Care Team Providers Care Jewel Bearing Broacher Name Role Phone KRISTOPHER MAXWELL Primary [facility] Insurance Providers: All historical and [...] PRESCRIPT ION RX730 1 May 28, 2017 [id number] [phone] OBDULIO,W ILLIAM PATIENT CAREMARK PRESCRIPT ION RX730 1 May 28, 2017 [id number] Weston MAK ILLIAM PATIENT OPTUM RX PRESCRIPT ION RX May 28, 2022 THPRX [id number] [phone] OBDULIOWeston ILLIAM PATIENT [facility] PLAN ALLEGRA Rincon May 28, 2017 [id number] Weston MAK PATIENT [facility] HEALTH PLAN USP May 28, 2017 [facility] [id number] [phone] OBDULIO,W ILLIAM PATIENT [facility] (WNR) TRICA RE(WN R) May 28, 2017 (WNR) [id number] [phone] Weston MAKIAKaren PATIENT [facility] (WNR) HMO May 28, 2014 [id number] Weston MAK PATIENT Selected Encounter This section includes the information on record at [place] for the Encounter. Date/Time Encounter Type Encounter Description Reason Pro vider Source Aug 17, 2023 01:30 PM Outpatient Encounter PODIATRY IHE Encounter Template Text not used by [place] Plan of Treatment: Future Appointments (+ 6 months) and Future Tests (+/- 45 days) The Plan of Treatment section includes future care activities for the patient from all [place] treatmentfacilities. This section includes future appointments and future orders which are active, pending or scheduled. Future Appointments This section includes appointments that were scheduled to occur 6 months from the date of the Encounter, up to a maximum of 20 appointments. The data comes from all [place] treatment facilities. Appointment Date/Time Appointment Type Appointme nt Facility Name Aug 24, 2023 11:00 AM AMBULATORY - MEDICINE [place] [facility] [place] [facility] Aug 28, 2023 10:00 AM AMBULATORY - MEDICINE [place] [facility] [place] [facility] Aug 31, 2023 09:00 AM AMBULATORY - MEDICINE [place] [facility] [place] [place] [facility] Aug 31, 2023 10:00 AM AMBULATORY - REHAB MEDICIN E [place] [facility] [place] [place] [facility] Sep 07, 2023 10:00 AM AMBULATORY - MEDICINE [place] [facility] [place] [facility] Sep 14, 2023 10:00 AM AMBULATORY - MEDICINE [place] [facility] [place] [facility] Sep 21, 2023 10:30 AM AMBULATORY - MEDICINE [place] [facility] [place] [facility] September 28, 2023 08:30 AM AMBULATORY - MEDICINE [place] [facility] [place] [facility] October 01, 2023 09:00 AM AMBULATORY - REHAB MEDICIN E [place] [facility] [place] [facility] October 11, 2023 02:30 PM AMBULATORY - MEDICINE [facility] October 19, 2023 08:30 AM AMBULATORY - MEDICINE [place] [facility] [place] [facility] Nov 13, 2023 01:30 PM AMBULATORY - MEDICINE [place] [facility] [place] [facility] Dec 14, 2023 11:30 AM AMBULATORY - MEDICINE [place] [facility] [place] [facility] Dec 28, 2023 10:00 AM AMBULATORY - MEDICINE [place] [facility] [place] [facility] Jan 11, 2024 09:00 AM AMBULATORY - MEDICINE [place] [facility] [place] [facility] Jan 14, 2024 11:00 AM AMBULATORY - REHAB MEDICIN E [place] [facility] [place] [facility] Feb 08, 2024 08:30 AM AMBULATORY - MEDICINE [place] [facility] [place] [facility] Advance Directives: All historical and current Section Date Range: From patient's date of to the date document was created. This section includes ALL of a patient's completed or amended [place] Advance and Rescinded Directives. The entries below indicate that a directive exists for the patient, but an actual copy is not included with this document. The data comes from all [place] facilities. Date Advance Directives Provider Source Dec 02, 2020 ADVANCE DIRECTIVE ANANDA COMERCY RENUKA REDDIGN IE Encounter Notes: All associated encounter notes This section contains the clinical notes associated to the Encounter. Date/Time Encounter Note(s) Provider Source October 08, 2023 02:53 PM ADDENDUM: LOCAL TITLE: Addendum STANDARD TITLE: ADDENDUM DATE OF NOTE: OCTOBER 08, 2023@14:53:40 ENTRY DATE: OCTOBER 08, 2023@14:53:41 AUTHOR: CHELE JOSE EXP COSIGNER: URGENCY: STATUS: COMPLETED [place] is calling again. States he was told by Podiatry Nurse to call and schedule an appopintment with Podiatry for f/u on foot issues. He left a earlier for Podiatry and has not been contacted. /jac/ CHELE DOUGLAS CCC RN Signed: 10/08/2023 14:55 Receipt Acknowledged By: 10/10/2023 13:30 /jac/ JOSÉ TRACY 10/08/2023 15:20 /es/ VELVET QUARLES RN REGISTERED NURSE 10/08/2023 15:13 /es/ SALVATORE GILMORE LPN LICENSED PRACTICAL NURSE --- Original Document --- 10/08/23 TELEPHONE NOTE/SPECIALTY CLINIC: Msg left on the Specialty Care at 0926 requesting a call back to schedule a POD appt. Please call [phone] /es/ EVA HORTON HAS DOWELER Signed: 10/08/2023 11:13 Receipt Acknowledged By: 10/10/2023 13:30 /jac/ CHELE PITTMAN October 08, 2023 11:12 AM TELEPHONE ENCOUNTE R NOTE: LOCAL TITLE: TELEPHONE NOTE/SPECIALTY CLINIC STANDARD TITLE: TELEPHONE ENCOUNTER NOTE DATE OF NOTE: OCTOBER 08, 2023@11:12 ENTRY DATE: OCTOBER 08, 2023@11:12:56 AUTHOR: EVA HORTON COSIGNER: URGENCY: STATUS: COMPLETED TELEPHONE NOTE/SPECIALTY CLINIC Has ADDENDA Msg left on the Specialty Care at 0926 requesting a call back to schedule a POD appt. Please call [phone] /es/ EVA HORTON HAS DOWELER Signed: 10/08/2023 11:13 Receipt Acknowledged By: 10/10/2023 13:30 /es/ JOSÉ TRACY 10/08/2023 ADDENDUM STATUS: COMPLETED is calling again. States he was told by Podiatry Nurse to call and schedule an appopintment with Podiatry for f/u on foot issues. He left a VM earlier for Podiatry and has not been contacted. /jac/ CHELE DOUGLAS CCC RN Signed: 10/08/2023 14:55 Receipt Acknowledged By: 10/10/2023 13:30 /jac/ JOSÉ TRACY 10/08/2023 15:20 /es/ VELVET QUARLES RN REGISTERED NURSE 10/08/2023 15:13 /es/ SALVATORE GILMORE LPN LICENSED PRACTICAL NURSE EVA HORTON
--- OUTSIDE RECORDS SUMMARY | 2024-05-20 08:41 | XMS_ITS ---
Author Name [place] Address [address] [place] [address] Care Team Providers Care Fruit Receiver Name Role Phone KRISTOPHER MAXWELL Primary Care Provider [facility] Insurance Providers: All historical and [...] PRESCRIPT ION RX730 1 May 28, 2017 [id number] Weston MAKM PATIENT CAR[facility]ARK PRESCRIPT ION RX730 1 May 28, 2017 [id number] OBDULIO,Weston ILLIAM PATIENT OPTUM RX PRESCRIPT ION RX May 28, 2022 THPRX [id number] [phone] OBDULIO,Weston ILLIAM PATIENT [facility] PLAN ALLEGRA Rincon May 28, 2017 [id number] [phone] Weston MAK PATIENT [facility] HEALTH PLAN USP May 28, 2017 [facility] [id number] [phone] Weston MAK PATIENT [facility] (WNR) TRICA RE(WN R) May 28, 2017 (WNR) [id number] Weston MAK PATIENT [facility] (WNR) HMO May 28, 2014 [id number] Weston MAK PATIENT Selected Encounter This section includes the information on record at [place] for the Encounter. Date/Time Encounter Type Encounter Description Reason Pro vider Source September 28, 2023 12:33 PM Outpatient Encounter TELEPHONE/ANCILLARY IHE Encounter Template Text not used by [place] Plan of Treatment: Future Appointments (+ 6 months) and Future Tests (+/- 45 days) The Plan of Treatment section includes future care activities for the patient from all [place] treatmentfacilities. This section includes future appointments and future orders which are active, pending or scheduled. Future Appointments This section includes appointments that were scheduled to occur 6 months from the date of the Encounter, up to a maximum of 20 appointments. The data comes from all [place] treatment facilities. Appointment Date/Time Appointment Type Appointme nt Facility Name October 01, 2023 09:00 AM AMBULATORY - REHAB MEDICIN E [place] [facility] [place] [facility] October 11, 2023 02:30 PM AMBULATORY - MEDICINE [facility] October 19, 2023 08:30 AM [...] 26, 2024 08:30 AM [facility] Mar 21, 2024 08:30 AM AMBULATORY - MEDICINE [facility] Advance Directives: All historical and current Section Date Range: From patient's date of to the date document was created. This section includes ALL of a patient's completed or amended [place] Advance and Rescinded Directives. The entries below indicate that a directive exists for the patient, but an actual copy is not included with this document. The data comes from all [place] facilities. Date Advance Directives Provider Source Dec 02, 2020 ADVANCE DIRECTIVE ZAIRE COMER [facility] IE Encounter Notes: All associated encounter notes This section contains the clinical notes associated to the Encounter. Date/Time Encounter Note(s) Provider Source September 28, 2023 12:36 PM LETTERS: LOCAL TITLE: PATIENT LETTER (B) STANDARD TITLE: LETTERS DATE OF NOTE: SEPTEMBER 28, 2023@12:36 ENTRY DATE: SEPTEMBER 28, 2023@12:36:27 AUTHOR: LAURA BOOKER EXP COSIGNER: URGENCY: STATUS: COMPLETED [facility] Toll Free Number ext [phone] [facility] scheduling can be reached at ext. [phone] [facility]- ext. [phone] [facility]- ext. [phone] [facility]- ext. [phone] SEPTEMBER 28, 2023 TEODORA MAK [address] [place] [id number] Dear TEODORA MAK Thank you for choosing the [facility] as your primary choice for health care. [...] would like to be seen, please contact [facility] at ext. [phone] to schedule an appointment. Thank you for your service to our nation, and we look forward to hearing from you soon. Sincerely, [facility] [address] [facility] [address] [place] [address] [place] [address] ext [phone] [facility] Out[facility] Clinic [address] [facility] [address] [place] [address] [place] [address] ext. [phone] [facility] [address] [facility] [address] [place] [address] [place] [address] ext. [phone] LAURA BOOKER [facility] September 28, 2023 12:33 PM ADMINISTRATIVE NOT E: LOCAL TITLE: ADMINISTRATIVE RECALL NOTE STANDARD TITLE: ADMINISTRATIVE NOTE DATE OF NOTE: SEPTEMBER 28, 2023@12:33 ENTRY DATE: SEPTEMBER 28, 2023@12:34:26 AUTHOR: LAURA BOOKER EXP COSIGNER: URGENCY: STATUS: COMPLETED RTC orders: Unable to contact patient: Attempts to contact: 1st attempt: Left voicemail 2nd attempt: Letter mailedDisposition onMa 3rd attempt: 4th attempt: /jac/ LAURA BOOKER ADVANCED HAND PICKER Signed: 09/28/2023 12:36 LAURA BOOKER [facility]
--- OUTSIDE RECORDS SUMMARY | 2024-05-20 08:41 | XMS_ITS ---
Author Name Department of [place] Organization [place] Address [address] [place] [address] Care Team Providers Care Escrow Secretary Name Role Phone KRISTOPHER MAXWELL Primary Care [...] PRESCRIPT ION RX730 1 May 28, 2017 [id number] Weston MAK ILLIAM PATIENT CAR[facility] PRESCRIPT ION RX730 1 May 28, 2017 [id number] Weston MAK ILLIAM PATIENT OPTUM RX PRESCRIPT ION RX May 28, 2022 THPRX [id number] [phone] Weston MAK ILLIAM PATIENT [facility] May 28, 2017 [facility] [id number] [phone] Weston MAK PATIENT [facility] HEALTH PLAN PATRICIA Rincon May 28, 2017 [id number] Weston MAK PATIENT [facility] (R) TRICA RE(WN R) May 28, 2017 (WNR) [id number] Weston MAK PATIENT [facility] (WNR) HMO May 28, 2014 [id number] Weston MAK PATIENT Selected Encounter This section includes the information on record at [place] for the Encounter. Date/Time Encounter Type Encounter Description Reason Pro vider Source September 27, 2023 08:41 AM Outpatient Encounter TELEPHONE/ANCILLARY IHE Encounter Template Text not used by [place] Plan of Treatment: Future Appointments (+ 6 [...] [place] [facility] [place] [place] [facility] October 01, 2023 09:00 AM AMBULATORY - REHAB MEDICIN E [place] [facility] [place] [facility] October 11, 2023 02:30 PM AMBULATORY - MEDICINE [facility] October 19, 2023 08:30 AM AMBULATORY - MEDICINE [place] [facility] [place] [place] [facility] Nov 13, 2023 01:30 PM AMBULATORY - MEDICINE [place] [facility] [place] [facility] Dec 14, 2023 11:30 AM AMBULATORY - MEDICINE [place] [facility] [place] [facility] Dec 28, 2023 10:00 AM AMBULATORY - MEDICINE [place] [facility] [place] [facility] Jan 11, 2024 09:00 AM AMBULATORY - MEDICINE [place] [facility] [place] [place] [facility] Jan 14, 2024 11:00 AM AMBULATORY - REHAB MEDICIN E [place] [facility] [place] [facility] Feb 08, 2024 08:30 AM AMBULATORY - MEDICINE [place] [place] [facility] Feb 26, 2024 08:30 AM AMBULATORY - MEDICINE [place] [facility] [place] [facility] Mar 21, 2024 08:30 AM AMBULATORY - MEDICINE [facility] Advance Directives: All historical and current Section [...] Encounter. Date/Time Encounter Note(s) Provider Source September 27, 2023 08:41 AM TELEPHONE ENCOUNTE R NOTE: LOCAL TITLE: TELEPHONE NOTE/SPECIALTY CLINIC STANDARD TITLE: TELEPHONE ENCOUNTER NOTE DATE OF NOTE: SEPTEMBER 27, 2023@08:41 ENTRY DATE: SEPTEMBER 27, 2023@08:41:31 AUTHOR: YESSI STONE COSIGNER: URGENCY: STATUS: COMPLETED Called and spoke with pt to remind them that they have a VVC appt with the Pain clinic on 09/28/2023 at 0830. /jac/ YESSI STONE Signed: 09/27/2023 08:41 YESSI STONE [place] [facility]
--- OUTSIDE RECORDS SUMMARY | 2024-05-20 08:41 | XMS_ITS ---
Author Name [place] Address [address] [place] [address] Care Team Providers Care Funds Transfer Clerk Name Role Phone KRISTOPHER MAXWELL Primary Care [...] PRESCRIPT ION RX730 1 May 28, 2017 [id number] Weston MAK MANSOORKaren PATIENT [facility] PRESCRIPT ION RX730 1 May 28, 2017 [id number] Weston MAK PATIENT OPTUM RX PRESCRIPT ION RX May 28, 2022 THPRX [id number] [phone] Weston MAK PATIENT [facility] HEALTH PLAN ALLEGRA Lamar May 28, 2017 [id number] OBDULIO,W ILLIAM PATIENT [facility] HEALTH PLAN USP May 28, 2017 [facility] [id number] [phone] OBDULIO,W ILLIAM PATIENT [facility] (R) TRICA RE(WN R) May 28, 2017 (WNR) [id number] OBDULIO,W ILLIAM [facility] H[facility] May 28, 2014 [id number] OBDULIO,W ILLIAM PATIENT Selected Encounter This section includes the information on record at [place] for the Encounter. Date/Time Encounter Type Encounter Description Reason Provider Source October 01, 2023 09:00 AM HEARING AID REPAIR/MODIFYIN G AUDIOLOGY ICD-10-CM Z46.1 Encounter for fitting and adjustment of hearing aid CHRIS ROBERTSON Encounter Template Text not used by [place] Assessments - Encounter Diagnoses This section includes the primary and secondary diagnoses documented for the Encounter. Date/Time Primary/Secondary Diagnosis Diagnosis Name Provider Source October 01, 2023 03:17 PM PRIMARY Encounter for fitting and adjustment of hearing aid LEANDRO CASTELLANO [place] [facility] [place] [facility] October 01, 2023 03:17 PM SECONDARY Sensorineural hearing loss, bilateral LEANDRO CASTELLANO [place] [facility] [place] [facility] Plan of Treatment: Future Appointments (+ 6 [...] Appointment Type Appointme nt Facility Name October 11, 2023 02:30 PM AMBULATORY - MEDICINE [facility] October 19, 2023 08:30 AM AMBULATORY - MEDICINE [place] [facility] Nov 13, 2023 01:30 PM AMBULATORY - MEDICINE [place] [facility] Dec 14, 2023 11:30 AM AMBULATORY - MEDICINE [place] [facility] Dec 28, 2023 10:00 AM AMBULATORY - MEDICINE [place] [facility] Jan 11, 2024 09:00 AM AMBULATORY - MEDICINE [place] [place] [facility] Jan 14, 2024 11:00 AM AMBULATORY - REHAB MEDICIN E [place] [facility] [place] [facility] Feb 08, 2024 08:30 AM AMBULATORY - MEDICINE [place] [facility] Feb 26, 2024 08:30 AM AMBULATORY - MEDICINE [place] [facility] Mar 21, 2024 08:30 AM AMBULATORY - [facility]ICINE [place] [facility] Advance Directives: All historical and current Section Date Range: From patient's date of to the date document was created. This section includes ALL of a patient's completed or amended [place] Advance and Rescinded Directives. The entries below indicate that a directive exists for the patient, but an actual copy is not included with this document. The data comes from all [place] facilities. Date Advance Directives Provider Source Dec 02, 2020 ADVANCE DIRECTIVE ZAIRE COMER [facility] IE Encounter Notes: All associated encounter notes This section contains the clinical notes associated to the Encounter. Date/Time Encounter Note(s) Provider Source October 01, 2023 08:50 AM AUDIOLOGY NOTE: [facility] TITLE: AUDIOLOGY [facility] TITLE: AUDIOLOGY NOTE DATE OF NOTE: OCTOBER 01, 2023@08:50 ENTRY DATE: OCTOBER 01, 2023@08:50:26 AUTHOR: JOSÉ CASTELLANO COSIGNER: CHRIS ROBERTSON URGENCY: STATUS: COMPLETED October 01, 2023 History/Background: was seen for a hearing aid follow up, unaccompanied. showed up 45 mins late for his scheduled appointment. was scheduled today for hearing aid maintenance and to bean picker machine operator his back up set of earmolds. [place] brought in his hearing aids as well as a backup pair of earmolds. Hearing aids: Melanie EVOLV AI BTE 13s Serial Numbers: [id number] Date Issued: 07/06/2023 Hearing aid check: Both hearing aids were cleaned and checked. Replaced tubes, tonehooks and madison covers. And replaced tubes and tonehook on back up set of earmolds, cut tubes to length and attached tonehooks to new set of earmolds. Biologic check was good. international marketing manager ordered today per Veterans request. Plan: [place] requested routine maintenance be scheduled for 3 months. 60 min HT appointment was scheduled for 01/14/2024 @ 1100. RTC entered. Note: All future appointments should be 60 mins as [place] has 6 earmolds he would like tubed. /jac/ JOSÉ CASTELLANO Audiology Health Control Systems Engineer Signed: 10/01/2023 15:26 /jac/ ALISA GREGORIO, CCC-A STAFF COMMERCIAL LEASING MANAGER Cosigned: 10/01/2023 17:02 JOSÉ CASTELLANO CN[facility]L [facility] [[email or web address]N [facility]
--- OUTSIDE RECORDS SUMMARY | 2024-05-20 08:41 | XMS_ITS ---
Author Name [facility] [place] Organization [facility] [place] Address [address] [place] [address] Care Team Providers Care Coordinator Of Library Services Name Role Phone KRISTOPHER MAXWELL Primary Care [...] PRESCRIPT ION RX730 1 May 28, 2017 [id number] OBDULIO,Weston DARION PATIENT CAREMARK PRESCRIPT ION RX730 1 May 28, 2017 [id number] [phone] Weston MAK DANIELLETAINAKaren PATIENT OPTUM RX PRESCRIPT ION RX May 28, 2022 THPRX [id number] OBDULIO,Weston MANSOORM PATIENT [facility] May 28, 2017 [facility] [id number] OBDULIOW ILLIAM PATIENT [facility] PLAN ALLEGRA Rincon May 28, 2017 [id number] OBDULIO,W ILLIAM PATIENT [facility] ([facility] TRICA RE(WN R) May 28, 2017 (WNR) [id number] OBDULIO,W ILLIAM [facility] H[facility] May 28, 2014 [id number] [phone] OBDULIO,W ILLIAM PATIENT Selected Encounter This section includes the information on record at [place] for the Encounter. Date/Time Encounter Type Encounter Description Reason Provider Source September 28, 2023 08:30 AM MTMS BY TRAY MONET 15 MIN TELEPHONE/STEPHY MICHAEL ICD-10-CM M54.50 Low back pain, unspecified HEMAL MCNAMARA E Encounter Template Text not used by [place] Assessments - Encounter Diagnoses This section includes the primary and secondary diagnoses documented for the Encounter. Date/Time Primary/Secondary Diagnosis Diagnosis Name Provider Source September 28, 2023 08:30 AM PRIMARY Low back pain, unspecified HEMAL MCNAMARA [place] [facility] [place] [facility] Plan of Treatment: Future Appointments [...] REHAB MEDICIN E [place] [facility] [place] [facility] October 11, 2023 02:30 PM AMBULATORY - [facility]INE [facility] October 19, 2023 08:30 AM AMBULATORY - MEDICINE [place] [facility] [facility] Nov 13, 2023 01:30 PM AMBULATORY - MEDICINE [place] [facility] [facility] Dec 14, 2023 11:30 AM AMBULATORY - MEDICINE [place] [facility] [place] [facility] Dec 28, 2023 10:00 AM AMBULATORY - MEDICINE [place] [facility] [facility] Jan 11, 2024 09:00 AM AMBULATORY - MEDICINE [place] [facility] Jan 14, 2024 11:00 AM AMBULATORY - REHAB MEDICIN E [place] [facility] [place] [facility] Feb 08, 2024 08:30 AM AMBULATORY - MEDICINE [place] [facility] Feb 26, 2024 08:30 AM AMBULATORY - MEDICINE [place] [facility] Mar 21, 2024 08:30 AM AMBULATORY - MEDICINE [facility] Advance Directives: All historical and [...] Dec 02, 2020 ADVANCE DIRECTIVE ZAIRE COMER [facility] Encounter Notes: All associated encounter notes This section contains the clinical notes associated to the Encounter. Date/Time Encounter Note(s) Provider Source September 28, 2023 09:14 AM ACCOUNTING OF DISC LOSURES NOTE: LOCAL TITLE: STATE PRESCRIPTION DRUG MONITORING PROGRAM STANDARD TITLE: ACCOUNTING OF DISCLOSURES NOTE DATE OF NOTE: SEPTEMBER 28, 2023@09:14:49 ENTRY DATE: SEPTEMBER 28, 2023@09:14:49 AUTHOR: HEMAL MCNAMARA EXP COSIGNER: URGENCY: STATUS: COMPLETED This PDMP query was submitted by Hemal Mcnamara. The clinical justification for this PDMP query is to review controlled substances prescribed outside of the [facility], and any additional information that may become available, as an important component of standard clinical care, and in accordance with [facility] policy. Patient information was shared with the PDMP Appriss [place]. Prescription(s) filled outside the VA in the last 90 days are noted. However, they do not raise significant safety concerns and do not influence the treatment plan at this time. Fill Date ID Written Drug Qty Days Prescriber Rx # Pharmacy Refill Daily Dose * Pymt Type CRYOGENICS REPAIRER 09/14/2023 3 09/14/2023 Pregabalin 200 Mg Capsule 28.00 14 Be Zana [id number] [facility] (4904) 0/0 /[place] 09/07/2023 3 09/07/2023 Pregabalin 100 Mg Capsule 42.00 14 Be Zana [id number] Va (4904) 0/0 /[place] 08/31/2023 3 08/31/2023 Pregabalin 75 Mg Capsule 42.00 14 Be Zana [id number] [facility] (4904) 0/0 /VA [place] 08/24/2023 3 08/24/2023 Pregabalin 100 Mg Capsule 28.00 14 Be Zana [id number] [facility] (4904) 0/0 /[place] 07/26/2023 2 07/26/2023 Oxycodone-Acetaminophen 5-325 40.00 5 Da Kaylen [id number] [facility] (9935) 0/0 60.00 MME Comm Ins [place] 07/13/2023 2 07/13/2023 Oxycodone-Acetaminophen 5-325 40.00 3 Da Kaylen [id number] [facility] (9935) 0/0 100.00 MME Comm [place] 06/13/2023 2 06/12/2023 Gabapentin 600 Mg Tablet 270.00 90 [place] [id number] Bishnu (8260) 0/0 Comm Ins [place] 03/08/2023 1 03/06/2023 Gabapentin 600 Mg Tablet 270.00 90 [place] [id number] Bishnu (8260) 0/0 Comm Ins [place] 11/01/2022 1 07/12/2022 Gabapentin 600 Mg Tablet 270.00 90 [place] [id number] Bishnu (8272) 05/28 Comm Ins [place] 07/25/2022 2 07/12/2022 Gabapentin 600 Mg Tablet 270.00 90 An Sha [id number] Bishnu (8272) 0/1 Comm Ins [place] 05/04/2022 2 05/01/2022 Gabapentin 600 Mg Tablet 270.00 90 [place] [id number] Bishnu (8272) 0/0 Comm Ins [place] 02/06/2022 1 02/02/2022 Gabapentin 600 Mg Tablet 270.00 90 [place] [id number] Bishnu (8272) 0/0 Comm Ins [place] // HEMAL MCNAMARA CLINICAL PHARMACIST PRACTITIONER, PAIN Signed: 09/28/2023 09:18 HEMAL MCNAMARA [place] [facility] [place] [facility] September 28, 2023 08:08 AM [facility] NOTE: LOCAL TITLE: PAIN CLINIC NOTE STANDARD TITLE: PAIN MEDICINE OUTPATIENT NOTE DATE OF NOTE: SEPTEMBER 28, 2023@08:08 ENTRY DATE: SEPTEMBER 28, 2023@08:08:08 AUTHOR: HEMAL MCNAMARA COSIGNER: URGENCY: STATUS: COMPLETED TEODORA Da Silva is 68 year old WHITE MALE with a history of chronic low back pain, who presents to pharmacy pain management clinic today for focused follow-up appointment regarding pregabalin titration. [place] was last seen in clinic via telephone on 09/21/23; no changes were made at that encounter. Prior to initiating encounter 's identity and location were confirmed. SUBJECTIVE/OBJECTIVE: TEODORA Da Silva reports today a pain score of 5 out of 10, with 10 being the most severe pain. The pain level averages around 6-7/10 throughout the day. He describes the quality as a nagging discomfort in the hips with radiating pain down the legs. Pain may be more bothersome in one leg vs. another at times which causes the to alter his gait. He also reports he has started to experience pain again in his right shoulder, which is worrisome to the as he had surgery to repair the rotator cuff in that shoulder on 07/13/23. He has reached out to his Non-VA orthopedic provider (Dr. Philip at [facility]) regarding this. Berta has returned to [place] for the summer and will be living there for the season. 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 He did take today off before an expected busy weekend. ----- PAIN SCREENING: PEG PAIN SCREENING TOOL [...] performed. #1. Non-VA Acetaminophen 325mg #2. Pregabalin 200mg BID (titrated 09/21/23) - [place] reports benefit from use but feels there is more it could do it - denies side effects related to use EVALUATION OF SOCIAL HISTORY: ---- TOBACCO USE: Denied. Quit ~30 yrs ago ALCOHOL USE: Socially when at [employer]; 1-2 beers, 1-2x per week CANNABIS USE: Denied. OTHER ILLICIT SUBSTANCES: Denied. RISK MITIGATION: PDMP: Completed 09/14/23; results returned as expected C-SSRS: Completed 08/24/23; [place] screened negative * DIPHENHYDRAMINE Active and Recently [...] is the source for the followin. Hyperlipidemia ([facility] [id number]) 2. Impaired Fasting Glucose ([facility] [id number]) 3. Erectile Dysfunction ([facility] [id number]) 4. Tinnitus 5. Hearing loss 6. Exposure to Potentially Hazardous Substance ([facility] [id number]) 7. Syncope and collapse 8. Low back [...] chronic pain related interventions. 's pain presentation is consistent with that described at prior encounter and appears to be mostly neuropathic in nature. Based on assessment today it does appear is finding some benefit with current dose of pregabalin as indicated by reduction in average pain score as well as continued level of function needed to perform his jobs. However, pain continues to effect [place]'s quality of life. At this time will increase pregabalin to 225mg BID. [place] counseled on potential side effects of use. Will also provide [place] with a prescription for lidocaine 4% cream to apply BID PRN to hip area as an alternative to previous use of lidocaine patches as cream formulation offer improved absorption. agreeable to plan. Also had discussion on the importance of incorporating non-pharmacologic modalities into care to help optimize regimen and improve overall outcomes. previously completed [facility] and was offered referral to AMP program but was unable to commit to program d/t work. Discussed with today referral to PT or chair yoga given reports of altered gait and potential impact that has on muscle groups and pain. was understanding of the education provided but again is unable to commit to the referrals d/t busy work schedule. A shared decision-making approach was used in the development of this plan, involving the [place] and clinician caregivers present. The was provided the opportunity express questions or concerns, and the plan was adjusted as needed to address these concerns. [place] verbalized understanding of the plan, including possible known risks and benefits, and had no additional questions. PLAN: 1. Increase to Pregabalin 225mg BID - counseled on potential side effects of use - PDMP queried; results returned as expected - requests prescription be held at pharmacy for pick-up on 09/30 2. Start Lidocaine 4% Cream BID PRN to hips 3. Reviewed pain education - Referral to PT and chair flannery declined today F/U via telephone in 3 weeks; Pt instructed to contact clinic with any questions or concerns prior to next encounter. - Encounter Time: 30 minutes /jac/ HEMAL MCNAMARA CLINICAL PHARMACIST PRACTITIONER, PAIN Signed: 09/28/2023 09:18 HEMAL MCNAMARA [place] [facility] [place] [facility]
--- OUTSIDE RECORDS SUMMARY | 2024-05-20 08:42 | XMS_ITS | Encounter Summary ---
Author Name [facility] [place] [facility] [place] Organization [facility] [place] Address [address] [place] [address] Care Team Providers Care Bankruptcy Manager Name Role Phone KRISTOPHER MAXWELL [facility] Insurance Providers: All historical and [...] PRESCRIPT ION RX730 1 May 28, 2017 [id number] Weston MAK PATIENT CAREMARK PRESCRIPT ION RX730 1 May 28, 2017 [id number] OBDULIO,Weston MANSOORM PATIENT OPTUM RX PRESCRIPT ION RX May 28, 2022 [id number] [phone] OBDULIO,W ILLIAM PATIENT [facility] PLAN ALLEGRA Rincon May 28, 2017 [id number] OBDULIO,W ILLIAM PATIENT [facility] May 28, 2017 [facility] [id number] OBDULIO,W ILLIAM PATIENT [facility] (WNR) TRICA RE(WN R) May 28, 2017 (WNR) [id number] OBDULIO,W ILLIAM [facility]IENT [facility]) HMO May 28, 2014 [id number] [id number] OBDULIO,W ILLIAM PATIENT Selected Encounter This section includes the information on record at [place] for the Encounter. Date/Time Encounter Type Encounter Description Reason Provider Source Nov 13, 2023 01:30 PM MTMS BY TRAY MONET 15 MIN PAIN CLINIC ICD-10-CM M54.50 Low back pain, unspecified HEMAL MCNAMARA [facility] Encounter Template Text not used by [place] Assessments - Encounter Diagnoses This section includes the primary and secondary diagnoses documented for the Encounter. Date/Time Primary/Secondary Diagnosis Diagnosis Name Provider Source Nov 13, 2023 01:52 PM PRIMARY Low back pain, unspecified HEMAL MCNAM[facility] [place] [facility] Plan of Treatment: Future Appointments [...] Date/Time Appointment Type Appointme nt Facility Name Dec 14, 2023 11:30 AM AMBULATORY - MEDICINE [place] [facility] [facility] Dec 28, 2023 10:00 AM AMBULATORY - MEDICINE [place] [facility] Jan 11, 2024 09:00 AM AMBULATORY - MEDICINE [place] C [place] [facility] Jan 14, 2024 11:00 AM AMBULATORY - REHAB MEDICIN E [facility] [place] [facility] Feb 08, 2024 08:30 AM AMBULATORY - MEDICINE [place] C [place] [facility] Feb 26, 2024 08:30 AM AMBULATORY - MEDICINE [facility] Mar 21, 2024 08:30 AM AMBULATORY - MEDICINE [facility] NTRL [facility] Apr 22, 2024 08:30 AM [facility] Advance Directives: All historical and current [...] 02, 2020 ADVANCE DIRECTIVE ZAIRE COMER [facility] [place] Encounter Notes: All associated encounter notes This section contains the clinical notes associated to the Encounter. Date/Time Encounter Note(s) Provider Source Nov 13, 2023 11:02 AM ACCOUNTING OF DISC LOSURES NOTE: LOCAL TITLE: STATE PRESCRIPTION DRUG MONITORING PROGRAM STANDARD TITLE: ACCOUNTING OF DISCLOSURES NOTE DATE OF NOTE: NOV 13, 2023@11:02:24 ENTRY DATE: NOV 13, 2023@11:02:24 AUTHOR: HEMAL MCNAMARA EXP COSIGNER: URGENCY: STATUS: COMPLETED This PDMP query was submitted by Hemal Mcnamara. The clinical justification for this PDMP query is to review controlled substances prescribed outside of the VA, and any additional information that may become available, as an important component of standard clinical care, and in accordance with [facility] policy. Patient information was shared with the PDMP Appriss [place]. Prescription(s) filled outside the VA in the last 90 days are noted. However, they do not raise significant safety concerns and do not influence the treatment plan at this time. Fill Date ID Written Drug Qty Days Prescriber Rx # Pharmacy Refill Daily Dose * Pymt Type WOOL PULLER 10/25/2023 2 10/25/2023 Tramadol Hcl 50 Mg Tablet 15.00 3 Pe [facility] [id number] [facility] (1604) 0/0 50.00 MME Comm Ins [place] 10/24/2023 4 10/19/2023 Pregabalin 225 Mg Capsule 60.00 30 Be Zana [id number] [facility] (6474) 0/0 /VA [place] 10/13/2023 2 10/13/2023 Oxycodone Hcl (Ir) 5 Mg Tablet 5.00 2 Rm Art [id number] [facility] (1604) 0/0 18.75 MME Comm Ins [place] 10/01/2023 4 09/28/2023 Pregabalin 225 Mg Capsule 60.00 30 Be Zana [id number] [place] (4904) 0/0 /[place] 09/14/2023 3 09/14/2023 Pregabalin 200 Mg Capsule 28.00 14 Be Zana [id number] [facility] (4904) 0/0 /[place] 09/07/2023 3 09/07/2023 Pregabalin 100 Mg Capsule 42.00 14 Be Zana [id number] [facility] (4904) 0/0 /[place] 08/31/2023 3 08/31/2023 Pregabalin 75 Mg Capsule 42.00 14 Be Zana [id number] [facility] (4904) 0/0 /[place] 08/24/2023 3 08/24/2023 Pregabalin 100 Mg Capsule 28.00 14 Be Zana [id number] [facility] (4904) 0/0 /[place] 07/26/2023 2 07/26/2023 Oxycodone-Acetaminophen 5-325 40.00 5 Da Kaylen [id number] [facility] (9935) 0/0 60.00 MME Comm Ins [place] 07/13/2023 2 07/13/2023 Oxycodone-Acetaminophen 5-325 40.00 3 Da Kaylen [id number] [facility] (9935) 0/0 100.00 MME Comm Ins [place] 06/13/2023 2 06/12/2023 Gabapentin 600 Mg Tablet 270.00 90 [place] [id number] [facility] (8260) 0/0 Comm Ins [place] 03/08/2023 1 03/06/2023 Gabapentin 600 Mg Tablet 270.00 90 [place] [id number] Bishnu (8260) 0/0 Comm Ins [place] 11/01/2022 1 07/12/2022 Gabapentin 600 Mg Tablet 270.00 90 An [facility] [id number] Bishnu (8272) 1 Comm Ins [place] 07/25/2022 2 07/12/2022 Gabapentin 600 Mg Tablet 270.00 90 An [facility] [id number] Bishnu (8272) 0 Comm Ins [place] 05/04/2022 2 05/01/2022 Gabapentin 600 Mg Tablet 270.00 90 [place] [id number] Bishnu (8272) 0/0 Comm Ins [place] 02/06/2022 1 02/02/2022 Gabapentin 600 Mg Tablet 270.00 90 [place] [id number] Bishnu (8272) 0/0 Comm Ins KENN /jac/ HEMAL MCNAMARA CLINICAL PHARMACIST PRACTITIONER, PAIN Signed: 11/13/2023 14:23 HEMAL MCNAMARA [place] [facility] [place] [facility] Nov 13, 2023 10:55 AM [facility] NOTE: LOCAL TITLE: PAIN CLINIC NOTE STANDARD TITLE: PAIN MEDICINE OUTPATIENT NOTE DATE OF NOTE: NOV 13, 2023@10:55 ENTRY DATE: NOV 13, 2023@10:55:53 AUTHOR: HEMAL MCNAMARA EXP COSIGNER: URGENCY: STATUS: COMPLETED TEODORA Da Silva is 68 year old WHITE MALE with a history of chronic low back pain, who presents to pharmacy pain management clinic today for routine follow-up appointment. [place] was last seen in clinic on 10/18; no changes made at that appointment. SUBJECTIVE/OBJECTIVE: TEODORA Da Silva presents to clinic today in no apparent distress. He visualized to be wearing immobilizers on b/l wrist/hands following surgical procedure on 10/24 to correct displaced fracture sustained earlier in the month of September at work. At the time of appointment, Berta endorsed surgical areas feeling numb but not painful. He has been provided short-supply of tramadol from Non-VA surgeon which he has been using sparingly. Berta remains out of work for the next several weeks and is in the process of filing a Worker's Compensation claim as injury occurred on work property. This process has been stressful for . Adding to the stress, Non-VA Ortho provider is concerned for damage to right shoulder which underwent rotator cuff repair in June. Non-VA Ortho provider plan on obtaining MRI per [place] but is waiting for pins to be removed from recent surgery (anticipated the end of this month). During discussion today, [place] reiterated his preference to reduce the number of medication he takes. He states he is aware there will be some level of pain regardless of intervention but he would like to get opinion on neurosurgery for his back pain. -- PAIN SCREENING: PEG PAIN SCREENING TOOL [...] 325mg - Use not assessed today #2. Diclofenac Epolamine 1.3% patches BID PRN - Did not provide benefit per [place] #3. Pregabalin 225mg BID (last filled: 10/21/23 for 30-days) - [place] reports use helps but it doesn't . He elaborated on this by stating he feels it helps first thing in the morning and at night but middle of the day is hard #4. Non-VA Tramadol 50mg (filled 10/25/23 for #15 tabs) - Using sparingly; reports use makes him drowsy - Takes for severe pain in the fingers - Unclear if benefit for other pains EVALUATION OF SOCIAL HISTORY: ---- TOBACCO USE: Denied. Quit ~30 yrs ago ALCOHOL USE: Socially when at [employer]; 1-2 beers, 1-2x per week CANNABIS USE: Denied. OTHER ILLICIT SUBSTANCES: Denied. RISK MITIGATION: PDMP: Completed today as part of appointment preparation C-SSRS: Completed on 08/24/23 at initial consult * DIPHENHYDRAMINE Active and Recently Outpatient Medications (excluding Supplies): Active Outpatient Medications Status 1) ASPIRIN 81MG EC TAB TAKE ONE TABLET BY MOUTH ONCE ACTIVE DAILY TO PREVENT STROKE/HEART ATTACK 2) DICLOFENAC EPOLAMINE 1.3% PATCH APPLY 1 PATCH TO SKIN ACTIVE TWICE DAILY NEEDED FOR PAIN 3) PREGABALIN 225MG ORAL CAP TAKE ONE CAPSULE BY MOUTH ACTIVE TWICE DAILY FOR PAIN Inactive Outpatient Medications Status 1) LIDOCAINE 4% TOP CREAM APPLY A SMALL AMOUNT TOPICALLY TWICE DAILY FOR PAIN Active Non-VA Medications Status 1) Non-VA ACETAMINOPHEN 325MG TAB 1300MG BY MOUTH THREE ACTIVE TIMES DAILY NEEDED 2) Non-VA ALFUZOSIN HCL 10MG SA TAB 10MG BY MOUTH DAILY ACTIVE 3) Non-VA TADALAFIL 5MG TAB 5MG BY MOUTH DAILY ACTIVE 7 Total Medications * Active problems - Computerized Problem List is the source for the followin. Hyperlipidemia ([facility] [id number]) 2. Impaired Fasting Glucose ([facility] [id number]) 3. Erectile Dysfunction ([facility] [id number]) 4. Tinnitus 5. Hearing loss 6. Exposure to Potentially Hazardous Substance ([facility] [id number]) 7. Syncope and collapse 8. Low back [...] ASSESSMENT: Mr. Mak is a 68-year-old male [place] with a history of chronic low back pain s/p multiple surgeries to cervical and lumbar spine. [place] also followed by Non-VA providers for chronic pain related interventions. Presentation again today likely mix of acute and chronic pain. [place] will continue to follow with Non-VA providers for management post-op care. Will defer medication changes at this time to allow for better assessment of benefit once acute pain has subsided. Most of today's encounter was spent providing education regarding expectations for pain management. Acknowledged [place]'s desire to minimize medication use but did spend time discussing potential use of buprenorphine (Butrans) for pain management. Education provided on different qualities of pain and as 's report is consistent with both nociceptive and neuropathic features it may require the use of an agent that can better target the nociceptive features. [place] remained open minded to trialing use of Butrans and this will be revisited at follow-up. At the end of encounter, again voiced interest in neurosurgery assessment, which was previously discussed with prior PCP, Dr. Tolbert. Given this author's scope of practice, informed [place] that provider would bring his case to Pain Team for discussion on his desire for additional discussion on neurosurgery. A shared decision-making approach was used in the development of this plan, involving the and clinician present. The [place] was provided the opportunity express questions or concerns, and the plan was adjusted as needed to address these concerns. [place] verbalized understanding of the plan, including possible known risks and benefits, and had no additional questions. PLAN: 1. Continue pregabalin 225mg BID - will call when renewal is needed 2. Diclofenac Epolamine 1.3% patches remain available for [place] to use PRN 3. Will review case with Pain Team in regard to [place]'s questions on neurosurgery 4. Education provided on potential use of Butrans for pain management 5. will continue to follow with Non-VA provider for post-op management F/U via F2F in 2 weeks; Pt instructed to contact clinic with any questions or concerns prior to next encounter. - Encounter Time: 30 minutes /jac/ HEMAL MCNAMARA CLINICAL PHARMACIST PRACTITIONER, PAIN Signed: 11/13/2023 16:05 [facility]
--- OUTSIDE RECORDS SUMMARY | 2024-05-20 08:42 | XMS_ITS | Encounter Summary ---
Author Name [facility] [place] [facility] [place] Address [address] [place] [address] Care Team Providers Care Medical Cash Poster Name Role Phone KRISTOPHER MAXWELL Primary Care Provider [facility] Insurance Providers: All historical and current [...] PRESCRIPT ION RX730 1 May 28, 2017 [id number] [phone] OBDULIOWeston SNOWM PATIENT [place]ARK PRESCRIPT ION [id number] 1 May 28, 2017 [id number] Weston MAKM PATIENT OPTUM RX PRESCRIPT ION RX May 28, 2022 THPRX [id number] OBDULIO,W ILLIAM PATIENT [facility] PLAN ALLEGRA Rincon May 28, 2017 [id number] [phone] Weston MAK PATIENT [facility] HEALTH PLAN USP May 28, [address] [facility] [id number] [phone] [facility] (R) TRICA RE(WN R) May 28, 2017 (WNR) [id number] Weston MAK PATIENT [facility] (WNR) HMO May 28, 2014 [id number] [phone] Weston MAK PATIENT Selected Encounter This section includes the information on record at [place] for the Encounter. Date/Time Encounter Type Encounter Description Reason Pro vider Source Nov 12, 2023 09:12 AM Outpatient Encounter PAIN CLINIC IHE Encounter Template Text not used by [place] Plan of Treatment: Future Appointments (+ 6 months) and Future Tests (+/- 45 days) The Plan of Treatment section includes future care activities for the patient from all [place] treatmentfacilities. This section includes future appointments and future orders which are active, pending or scheduled. Future Appointments This section includes appointments that were scheduled to occur 6 months from the date of the Encounter, up to a maximum of 20 appointments. The data comes from all [place] treatment facilities. Appointment Date/Time Appointment Type Appointme nt Facility Name Nov 13, 2023 01:30 PM [facility] Dec 14, 2023 11:30 AM [place] [facility] Dec 28, 2023 10:00 AM [facility] Jan 11, 2024 09:00 AM [facility] Jan 14, 2024 11:00 AM AMBULATORY - REHAB MEDICIN [facility] Feb 08, 2024 08:30 AM [facility] Feb 26, 2024 08:30 AM [facility] Mar 21, 2024 08:30 AM [facility] Apr 22, 2024 08:30 AM [place] [facility] Advance Directives: All historical and current Section Date Range: From patient's date of to the date document was created. This section includes ALL of a patient's completed or amended [place] Advance and Rescinded Directives. The entries below indicate that a directive exists for the patient, but an actual copy is not included with this document. The data comes from all [place] facilities. Date Advance Directives Provider Source Dec 02, 2020 ADVANCE DIRECTIVE SOULEYMANEZAIRE RENUKA MÉNDEZ IELD Encounter Notes: All associated encounter notes This section contains the clinical notes associated to the Encounter. Date/Time Encounter Note(s) Provider Source Nov 12, 2023 09:12 AM TELEPHONE ENCOUNTE R NOTE: LOCAL TITLE: TELEPHONE NOTE/SPECIALTY CLINIC STANDARD TITLE: TELEPHONE ENCOUNTER NOTE DATE OF NOTE: NOV 12, 2023@09:12 ENTRY DATE: NOV 12, 2023@09:12:36 AUTHOR: YESSI STONE COSIGNER: URGENCY: STATUS: COMPLETED Called and spoke with pt to reminded them that they have a FTF appt with the Pain clinic on 11/13/2023 at 1330. Location was confirmed. /jac/ YESSI STONE [facility] [employer] ADMIN Signed: 11/12/2023 09:12 [facility]ESSI STONE [facility]
--- OUTSIDE RECORDS SUMMARY | 2024-05-20 08:42 | XMS_ITS ---
Author Name [facility] [place] Address [address] [place] [address] Care Team Providers Care Cold Press Loader Name Role Phone KRISTOPHER MAXWELL Primary Care [...] PRESCRIPT ION RX730 1 May 28, 2017 [id number] [id number] OBDULIO,Weston DARION PATIENT [place] PRESCRIPT ION RX730 1 May 28, 2017 [id number] Weston MAK DANIELLETAINAKaren PATIENT OPTUM RX PRESCRIPT ION RX May 28, 2022 THPRX [id number] OBDULIO,Weston MANSOORM PATIENT [facility] May 28, 2017 [facility] [id number] OBDULIOW ILLIAM PATIENT [facility] HEALTH PLAN ALLEGRA Rincon May 28, 2017 [id number] OBDULIO,W ILLIAM PATIENT [facility] (R) TRICA RE(WN R) May 28, 2017 (WNR) [id number] OBDULIOWeston ILLIAM [facility] H[facility] May 28, 2014 [id number] [phone] OBDULIO,W ILLIAM PATIENT Selected Encounter This section includes the information on record at [place] for the Encounter. Date/Time Encounter Type Encounter Description Reason Provider Source October 19, 2023 08:30 AM MTMS BY TRAY MONET 15 MIN TELEPHONE/STEPHY MICHAEL ICD-10-CM M54.50 Low back pain, unspecified HEMAL MCNAMARA E Encounter Template Text not used by [place] Assessments - Encounter Diagnoses This section includes the primary and secondary diagnoses documented for the Encounter. Date/Time Primary/Secondary Diagnosis Diagnosis Name Provider Source October 19, 2023 08:30 AM PRIMARY Low back pain, unspecified HEMAL MCNAMARA [place] [facility] [place] [facility] Plan of Treatment: Future Appointments (+ 6 months) and Future Tests (+/- 45 days) The Plan of Treatment section includes future care activities for the patient from all [place] treatmentfacilities. This section includes future appointments and future orders which are active, pending or scheduled. Future Appointments This section includes appointments that were scheduled to occur 6 months from the date of the Encounter, up to a maximum of 20 appointments. The data comes from all [place] treatment facilities. Appointment Date/Time Appointment Type Appointme nt Facility Name Nov 13, 2023 01:30 PM [place] [facility] [place] [facility] Dec 14, 2023 11:30 AM [place] [facility] [place] [facility] Dec 28, 2023 10:00 AM [place] [facility] [place] [facility] Jan 11, 2024 09:00 AM [place]ORY [place] [facility] [place] [facility] Jan 14, 2024 11:00 AM AMBULATORY - [facility]ICIN [facility] [place] [facility] Feb 08, 2024 08:30 AM AMBULATORY - MEDICINE [facility] Feb 26, 2024 08:30 AM AMBULATORY - MEDICINE [facility]L [place] [facility] Mar 21, 2024 08:30 AM [facility] Advance Directives: All historical and current Section Date Range: From patient's date of to the date document was created. This section includes ALL of a patient's completed or amended [place] Advance and Rescinded Directives. The entries below indicate that a directive exists for the patient, but an actual copy is not included with this document. The data comes from all [place] facilities. Date Advance Directives Provider Source Dec 02, 2020 ADVANCE DIRECTIVE SOULEYMANEZAIRE RENUKA REDD[place] IEMARLENY Encounter Notes: All associated encounter notes This section contains the clinical notes associated to the Encounter. Date/Time Encounter Note(s) Provider Source October 19, 2023 08:55 AM ACCOUNTING OF DISC LOSURES NOTE: LOCAL TITLE: STATE PRESCRIPTION DRUG MONITORING PROGRAM STANDARD TITLE: ACCOUNTING OF DISCLOSURES NOTE DATE OF NOTE: OCTOBER 19, 2023@08:55:37 ENTRY DATE: OCTOBER 19, 2023@08:55:37 AUTHOR: HEMAL MCNAMARA EXP COSIGNER: URGENCY: STATUS: COMPLETED This PDMP query was submitted by Hemal Mcnamara. The clinical justification for this PDMP query is to review controlled substances prescribed outside of the [facility], and any additional information that may become available, as an important component of standard clinical care, and in accordance with [facility] policy. Patient information was shared with the PDMP [place]. Prescription(s) filled outside the [facility] in the last 90 days are noted. However, they do not raise significant safety concerns and do not influence the treatment plan at this time. Fill Date ID Written Drug Qty Days Prescriber Rx # Pharmacy Refill Daily Dose * Pymt Type SEO SPECIALIST 10/13/2023 2 10/13/2023 Oxycodone Hcl (Ir) 5 Mg Tablet 5.00 2 Rm Art [id number] [facility] (1604) 0/0 18.75 MME Comm Ins [place] 10/01/2023 4 09/28/2023 Pregabalin 225 Mg Capsule 60.00 30 Be Zana [id number] [facility] (4904) 0/0 /[place] 09/14/2023 3 09/14/2023 Pregabalin 200 Mg Capsule 28.00 14 Be Zana [id number] [facility] (4904) 0/0 /[place] 09/07/2023 3 09/07/2023 Pregabalin 100 Mg Capsule 42.00 14 Be Zana [id number] [facility] (4904) 0/0 /[place] 08/31/2023 3 08/31/2023 Pregabalin 75 Mg Capsule 42.00 14 Be Zana [id number] [facility] (4904) 0/0 /[place] 08/24/2023 3 08/24/2023 Pregabalin 100 Mg Capsule 28.00 14 Be Zana [id number] [facility] (4904) 0/0 /[place] 07/26/2023 2 07/26/2023 Oxycodone-Acetaminophen 5-325 40.00 5 Da Kaylen [id number] [facility] (9935) 0/0 60.00 MME Comm Ins [place] 07/13/2023 2 07/13/2023 Oxycodone-Acetaminophen 5-325 40.00 3 Da Kalyen [id number] [facility] (9935) 0/0 100.00 [place] 06/13/2023 2 06/12/2023 Gabapentin 600 Mg Tablet 270.00 90 [place] [id number] Bishnu (8260) 0/0 Comm Ins [place] 03/08/2023 1 03/06/2023 Gabapentin 600 Mg Tablet 270.00 90 [place] [id number] Bishnu (8260) 0/0 [place] Ins [place] 11/01/2022 1 07/12/2022 Gabapentin 600 Mg Tablet 270.00 90 [place] [id number] Bishnu (8272) 1/ Comm Ins [place] 07/25/2022 2 07/12/2022 Gabapentin 600 Mg Tablet 270.00 90 An Sha [id number] Bishnu (8272) 0/1 [place] 05/04/2022 2 05/01/2022 Gabapentin 600 Mg Tablet 270.00 90 [place] [id number] Bishnu (8272) 0/0 [place] Ins [place] 02/06/2022 1 02/02/2022 Gabapentin 600 Mg Tablet 270.00 90 [place] [id number] Bishnu (8272) 0/0 Comm Ins [place] /jac/ HEMAL MCNAMARA CLINICAL PHARMACIST PRACTITIONER, PAIN Signed: 10/19/2023 08:55 HEMAL MCNAMARA [place] [facility] October 19, 2023 08:02 AM [facility] NOTE: LOCAL TITLE: PAIN CLINIC NOTE STANDARD TITLE: PAIN MEDICINE OUTPATIENT NOTE DATE OF NOTE: OCTOBER 19, 2023@08:02 ENTRY DATE: OCTOBER 19, 2023@08:02:34 AUTHOR: HEMAL MCNAMARA EXP COSIGNER: URGENCY: STATUS: COMPLETED TEODORA Da Silva is 68 year old WHITE MALE with a history of chronic low back pain, who presents to pharmacy pain management clinic via telephone today for routine follow-up appointment. Adair was last seen in clinic on 09/28/23 at which time pregabalin was titrated to 225mg BID. SUBJECTIVE/OBJECTIVE: TEODORA Da Silva was reached via telephone by Pain Management CPP for follow-up. Adair reports he had an accident last week at work which resulted in fall. Adair experienced a fracture in right wrist and broke pinky finger with displaced fracture on left hand (per Adair's report as records at available for review). Adair currently in b/l casts, not sure how long he will be in casts but is planned for surgery next (10/24) to correct displaced fracture. Currently out of work at least through 11/05. Adair also Non-VA Ortho appt scheduled for re-evaluation of shoulder after fall given recent surgery. In regard to his chronic back pain, Adair reports it has ramped up . Endorses pregabalin providing more benefit than gabapentin but still significant pain, particularly at end of day when back is throbbing . ----- PAIN SCREENING: PEG PAIN SCREENING TOOL [...] - Use not assessed today #2. Pregabalin 225mg BID (last filled: 09/30/22 for 30-days) - confirms taking as prescribed - Denies side effects to use #3. Non-VA Oxycodone IR 5mg - Filled 10/13/23 per PDMP for #5 tabs - For acute wrist pain EVALUATION OF SOCIAL HISTORY: ---- TOBACCO USE: Denied. Quit ~30 yrs ago ALCOHOL USE: Socially when at [employer]; 1-2 beers, 1-2x per week CANNABIS USE: Denied. OTHER ILLICIT SUBSTANCES: Denied. RISK MITIGATION: PDMP: Completed 09/28/23; results returned as expected C-SSRS: Completed 08/24/23; Adair screened negative * DIPHENHYDRAMINE Active and Recently Outpatient Medications (excluding Supplies): Active Outpatient Medications Status 1) ASPIRIN 81MG EC TAB TAKE ONE TABLET BY MOUTH ONCE ACTIVE DAILY TO PREVENT STROKE/HEART ATTACK 2) LIDOCAINE 4% TOP CREAM APPLY A SMALL AMOUNT TOPICALLY ACTIVE TWICE DAILY FOR PAIN 3) PREGABALIN 225MG ORAL CAP TAKE ONE CAPSULE BY MOUTH ACTIVE TWICE DAILY ; THIS REPLACES GABAPENTIN Active Non-VA Medications Status 1) Non-VA ACETAMINOPHEN 325MG TAB 1300MG BY MOUTH THREE ACTIVE TIMES DAILY NEEDED 2) Non-VA ALFUZOSIN HCL 10MG SA TAB 10MG BY MOUTH DAILY ACTIVE 3) Non-VA TADALAFIL 5MG TAB 5MG BY MOUTH DAILY ACTIVE 6 Total Medications * Active problems - Computerized Problem List is the source for the followin. Hyperlipidemia ([facility] [id number]) 2. Impaired Fasting Glucose ([facility] [id number]) 3. Erectile Dysfunction ([facility] [id number]) 4. Tinnitus 5. Hearing loss 6. Exposure to Potentially Hazardous Substance ([facility] [id number]) 7. Syncope and collapse 8. Low back [...] multiple surgeries to cervical and lumbar spine. Adair also followed by Non-VA providers for chronic pain related interventions. Presentation today likely a representation of acute and chronic pain. Chronic pain conditions also likely aggravated by recent accident. Adair is planned for surgical procedure on 10/24. Will defer making any large changes to medications until after his surgery. However, a significant portion of time was spent providing education to . Discussed there is likely limited benefit from further titration of pregabalin. Thus far focus has been on managing neuropathic pain. 's presentation is consistent with mixed neuropathic and nociceptive pain symptoms. Nociceptive symptoms may respond to use of anti- inflammatory, discussed use of topical diclofenac. was agreeable to trial. Given current castings, gel formulation would be difficult and burdensome for Adair to apply. Provided counseling on use of diclofenac 1.3% patches. NDR for use approval entered. At follow-up may consider the use of Butrans patches, however, this discussion was deferred today as to not interfere with acute management plan. Also discussed the need to incorporate more non-pharmacologic modalities as to create a comprehensive pain management regimen. Adair agrees to come in for F appt for next follow-up to continue this discussion. A shared decision-making approach was used in the development of this plan, involving the Adair and clinician present. The Adair was provided the opportunity express questions or concerns, and the plan was adjusted as needed to address these concerns. Adair verbalized understanding of the plan, including possible known risks and benefits, and had no additional questions. PLAN: 1. Continue Pregabalin 225mg BID - Renewed today. PDMP queried; results returned as expected 2. Start Diclofenac 1.3% Patch BID PRN - NDR entered for pharmacy review/approval 3. Pain disease state education provided F/U via in F2F on 11/08 ; Pt instructed to contact clinic with any questions or concerns prior to next encounter. - Encounter Time: 30 minutes /jac/ HEMAL MCNAMARA CLINICAL PHARMACIST PRACTITIONER, PAIN Signed: 10/19/2023 09:42 HEMAL MCNAMARA [facility] [place] [facility]
--- OUTSIDE RECORDS SUMMARY | 2024-05-20 08:42 | XMS_ITS | Encounter Summary ---
Author Name [facility] [facility] [place] [facility] [place] Address [address] [place] [address] Care Team Providers Care Cabinet And Trim Installer Name Role Phone KRISTOPHER MAXWELL Primary Care [...] PRESCRIPT ION RX730 1 May 28, 2017 [id number] [phone] Weston MAK ILLIAM PATIENT CAREMARK PRESCRIPT ION [id number] 1 May 28, 2017 [id number] [phone] [place] MAK ILLIAM PATIENT OPTUM RX PRESCRIPT ION RX May 28, 2022 THPRX [id number] OBDULIO,W ILLIAM PATIENT [facility] May 28, 2017 [facility] [id number] Weston MAK PATIENT [facility] PLAN PATRICIA Rincon May 28, 2017 [id number] [phone] Weston MAK PATIENT [facility] (R) TRICA RE(WN R) May 28, 2017 (WNR) [id number] Weston MAK PATIENT [facility] (WNR) HMO May 28, 2014 [id number] [phone] Weston MAK PATIENT Selected Encounter This section includes the information on record at [place] for the Encounter. Date/Time Encounter Type Encounter Description Reason Pro vider Source Nov 28, 2023 11:02 AM Outpatient Encounter PAIN CLINIC [facility] Encounter Template Text not used by [place] Plan of Treatment: Future Appointments (+ 6 months) and Future Tests (+/- 45 days) The Plan of Treatment section includes future care activities for the patient from all [place] treatmentfacilities. This section includes future appointments and future orders which are active, pending or scheduled. Future Appointments This section includes appointments that were scheduled to occur 6 months from the date of the Encounter, up to a maximum of 20 appointments. The data comes from all [place] treatment facilities. Appointment Date/Time Appointment Type Appointme nt Facility Name Dec 14, 2023 11:30 AM [facility] [place] [facility] Dec 28, 2023 10:00 AM [facility] [place] [facility] Jan 11, 2024 09:00 AM [facility]ORY [facility] [place] [facility] Jan 14, 2024 11:00 AM AMBULATORY - [facility]AB MEDICIN [facility] [place] [facility] Feb 08, 2024 08:30 AM [facility] [place] [facility] Feb 26, 2024 08:30 AM [facility] [place] [facility] Mar 21, 2024 08:30 AM [facility] [place] [facility] Apr 22, 2024 08:30 AM [facility] [place] [facility] May 23, 2024 08:30 AM [facility]ORY [facility] [place] [facility] Lab Results: +/- 30 days of the encounter This section includes the Chemistry and Hematology Lab Results on record with [facility] for the patient. Radiology Reports and Pathology Reports are provided separately, in subsequent sections. Lab Results This section contains the Chemistry/Hematology Results that were resulted 30 days before or 30 daysafter the date of the Encounter. Date/Time Source Result Type Result - Unit Interpretation Reference Range Comment Dec 14, 2023 12:27 PM [facility] METHADONE SCREEN Specimen Type: URINE Comment: DERECK test are qualitative, any L or H flags only indicate a [place] alert was sent. Ordering Provider: LACEY MCNAMARA Report Released Date/Time: Dec 14, 2023 11:59 AM Reporting Lab: [address] [address] Performing Lab: [facility] [address] [facility] [address] METHADONE SCREEN None detected(Nega tive) L Negative Dec 14, 2023 12:27 PM [facility] ALCOHOL, ETHYL URINE PANEL Specimen Type: URINE Comment: Urine with Cr <5 is diluted or substituted. Cr between 5 and 20 is very dilute. Urine with SG of 1.001 or less is diluted or substituted. SG of 1.003 or less is very dilute. Urine with a pH <3 or >11 has been adulterated and is unsuitable for testing by our current method. Urine with pH between 3 and 4 OR 10 and 11 may have been adulterated. Ordering Provider: LACEY MCNAMARA Report Released Date/Time: Dec 14, 2023 11:59 AM Reporting Lab: [facility] [address] [facility] [address] Performing Lab: [address] [address] ALCOHOL, ETHYL URINE NONE-DETECTED mg/dL NONE-DETEC PENNY, cutoff = 10 mg/dL PH, DERECK 5.8 [pH] 4-10 CREATININE, DERECK 84.74 mg/dL >20 SP.GRAVITY, DERECK 1.011 1.00 3-1.02 0 Dec 14, 2023 12:27 PM [facility] AMPHETAMINES SCREEN PANEL Specimen Type: URINE Comment: Urine with Cr <5 is diluted or substituted. Cr between 5 and 20 is very dilute. Urine with SG of 1.001 or less is diluted or substituted. SG of 1.003 or less is very dilute. Urine with a pH <3 or >11 has been adulterated and is unsuitable for testing by our current method. Urine with pH between 3 and 4 OR 10 and 11 may have been adulterated. Ordering Provider: LACEY MCNAMARA Report Released Date/Time: Dec 14, 2023 11:59 AM Reporting Lab: [address] [address] Performing Lab: [address] [address] AMPHETAMINES SCREEN NONE-DETECTED None-Detec penny, Cutoff = 1000 ng/mL PH, DERECK 5.8 [pH] 4-10 CREATININE, DERECK 84.74 mg/dL >20 SP.GRAVITY, DERECK 1.011 1.00 3-1.02 0 Dec 14, 2023 12:27 PM [facility] FENTANYL SCREEN PANEL Specimen Type: URINE Comment: Urine with Cr <5 is diluted or substituted. Cr between 5 and 20 is very dilute. Urine with SG of 1.001 or less is diluted or substituted. SG of 1.003 or less is very dilute. Urine with a pH <3 or >11 has been adulterated and is unsuitable for testing by our current method. Urine with pH between 3 and 4 OR 10 and 11 may have been adulterated. FENTANYL CONFIRMATION NOT SENT BY LAB. Ordering Provider: LACEY MCNAMARA Report Released Date/Time: Dec 14, 2023 11:59 AM Reporting Lab: [address] [address] Performing Lab: [address] [address] FENTANYL SCREEN NONE-DETECTE D ng/mL Negative: Cutoff = 1.00 ng/mL PH, DERECK 5.8 [pH] 4-10 CREATININE, DERECK 85.39 mg/dL >20 SP.GRAVITY, DERECK 1.011 1.00 3-1.02 0 Dec 14, 2023 12:27 PM [facility] BENZODIAZEPINES SCREEN PANEL Specimen Type: URINE Comment: Urine with Cr <5 is diluted or substituted. Cr between 5 and 20 is very dilute. Urine with SG of 1.001 or less is diluted or substituted. SG of 1.003 or less is very dilute. Urine with a pH <3 or >11 has been adulterated and is unsuitable for testing by our current method. Urine with pH between 3 and 4 OR 10 and 11 may have been adulterated. Ordering Provider: LACEY MCNAMARA Report Released Date/Time: Dec 14, 2023 11:59 AM Reporting Lab: [address] [address] Performing Lab: [address] [address] BENZODIAZEPINES SCREEN NONE-DETECTED None-Detec penny, Cutoff = 200 ng/mL PH, DERECK 5.8 [pH] 4-10 CREATININE, DERECK 84.74 mg/dL >20 SP.GRAVITY, DERECK 1.011 1.00 3-1.02 0 Dec 14, 2023 12:27 PM [facility] BUPRENORPHINE SCREEN PANEL Specimen Type: URINE Comment: Urine with Cr <5 is diluted or substituted. Cr between 5 and 20 is very dilute. Urine with SG of 1.001 or less is diluted or substituted. SG of 1.003 or less is very dilute. Urine with a pH <3 or >11 has been adulterated and is unsuitable for testing by our current method. Urine with pH between 3 and 4 OR 10 and 11 may have been adulterated. Ordering Provider: LACEY MCNAMARA Report Released Date/Time: Dec 14, 2023 11:59 AM Reporting Lab: [address] [address] Performing Lab: [address] [address] BUPRENORPHINE (URINE) NONE-DETECTED None Detected, Cutoff = 10.0 ng/mL PH, DERECK 5.8 [pH] 4-10 CREATININE, DERECK 84.74 mg/dL >20 SP.GRAVITY, DERECK 1.011 1.00 3-1.02 0 Dec 14, 2023 12:27 PM [facility] CANNABINOIDS SCREEN PANEL Specimen Type: URINE Comment: Urine with Cr <5 is diluted or substituted. Cr between 5 and 20 is very dilute. Urine with SG of 1.001 or less is diluted or substituted. SG of 1.003 or less is very dilute. Urine with a pH <3 or >11 has been adulterated and is unsuitable for testing by our current method. Urine with pH between 3 and 4 OR 10 and 11 may have been adulterated. Ordering Provider: LACEY MCNAMARA Report Released Date/Time: Dec 14, 2023 11:59 AM Reporting Lab: [address] [address] Performing Lab: [address] [address] CANNABINOIDS SCREEN NONE-DETECTED None-Detec penny,Cutoff = 50 ng/mL PH, DERECK 5.8 [pH] 4-10 CREATININE, DERECK 84.74 mg/dL >20 SP.GRAVITY, DERECK 1.011 1.00 3-1.02 0 Dec 14, 2023 12:27 PM [facility] COCAINE SCREEN PANEL Specimen Type: URINE Comment: Urine with Cr <5 is diluted or substituted. Cr between 5 and 20 is very dilute. Urine with SG of 1.001 or less is diluted or substituted. SG of 1.003 or less is very dilute. Urine with a pH <3 or >11 has been adulterated and is unsuitable for testing by our current method. Urine with pH between 3 and 4 OR 10 and 11 may have been adulterated. Ordering Provider: LACEY MCNAMARA Report Released Date/Time: Dec 14, 2023 11:59 AM Reporting Lab: [address] [address] Performing Lab: [address] [address] COCAINE SCREEN NONE-DETECTED N one-Detec penny,Cutoff = 300 ng/mL PH, DERECK 5.8 [pH] 4-10 CREATININE, DERECK 84.74 mg/dL >20 SP.GRAVITY, DERECK 1.011 1.00 3-1.02 0 Dec 14, 2023 12:27 PM [facility] OPIATES SCREEN PANEL Specimen Type: URINE Comment: Urine with Cr <5 is diluted or substituted. Cr between 5 and 20 is very dilute. Urine with SG of 1.001 or less is diluted or substituted. SG of 1.003 or less is very dilute. Urine with a pH <3 or >11 has been adulterated and is unsuitable for testing by our current method. Urine with pH between 3 and 4 OR 10 and 11 may have been adulterated. Ordering Provider: LACEY MCNAMARA Report Released Date/Time: Dec 14, 2023 11:59 AM Reporting Lab: [address] [address] Performing Lab: [address] [address] OPIATES SCREEN NONE-DETECTED N one-Detec penny, Cutoff = 300 ng/mL PH, DERECK 5.8 [pH] 4-10 CREATININE, DERECK 84.74 mg/dL >20 SP.GRAVITY, DERECK 1.011 1.00 3-1.02 0 Dec 14, 2023 12:27 PM [facility] OXYCODONE SCREEN PANEL Specimen Type: URINE Comment: Urine with Cr <5 is diluted or substituted. Cr between 5 and 20 is very dilute. Urine with SG of 1.001 or less is diluted or substituted. SG of 1.003 or less is very dilute. Urine with a pH <3 or >11 has been adulterated and is unsuitable for testing by our current method. Urine with pH between 3 and 4 OR 10 and 11 may have been adulterated. Ordering Provider: LACEY MCNAMARA Report Released Date/Time: Dec 14, 2023 11:59 AM Reporting Lab: [address] [address] Performing Lab: [address] [address] OXYCODONE SCREEN NONE-DETECTED None-Detec penny, Cutoff = 100 ng/mL PH, DERECK 5.8 [pH] 4-10 CREATININE, DERECK 84.74 mg/dL >20 SP.GRAVITY, DERECK 1.011 1.00 3-1.02 0 Advance Directives: All historical and current Section Date Range: From patient's date of to the date document was created. This section includes ALL of a patient's completed or amended [place] Advance and Rescinded Directives. The entries below indicate that a directive exists for the patient, but an actual copy is not included with this document. The data comes from all [place] facilities. Date Advance Directives Provider Source Dec 02, 2020 ADVANCE DIRECTIVE SOULEYMANEZAIRE RENUK[facility] [place] Encounter Notes: All associated encounter notes This section contains the clinical notes associated to the Encounter. Date/Time Encounter Note(s) Provider Source Nov 28, 2023 11:02 AM TELEPHONE ENCOUNTE R NOTE: LOCAL TITLE: TELEPHONE NOTE/SPECIALTY CLINIC STANDARD TITLE: TELEPHONE ENCOUNTER NOTE DATE OF NOTE: NOV 28, 2023@11:02 ENTRY DATE: NOV 28, 2023@11:02:24 AUTHOR: YESSI STONE COSIGNER: URGENCY: STATUS: COMPLETED Call attempt was made to remind vet that they have a FTF appt with the Pain clinic on 11/30/2023 at 1130. No answer, lvm. Location was confirmed. /jac/ YESSI STONE ADVANCED DOCUMENT ADVISOR Signed: 11/28/2023 11:02 YESSI STONE [facility]
--- OUTSIDE RECORDS SUMMARY | 2024-05-20 08:42 | XMS_ITS | Encounter Summary ---
Author Name [facility] [place] [facility] [place] [facility] [place] Address [address] [place] [address] Care Team Providers Care Multimedia Coordinator Name Role Phone KRISTOPHER MAXWELL Primary Care Provider [facility] Insurance Providers: All historical and [...] PRESCRIPT ION RX730 1 May 28, 2017 [id number] [phone] O[place] SNOWM PATIENT CAREMARK PRESCRIPT ION [id number] 1 May 28, 2017 [id number] [phone] [place] MAKM PATIENT OPTUM RX PRESCRIPT ION RX May 28, 2022 [id number] [phone] OBDULIO,W ILLIAM PATIENT [facility] PLAN ALLEGRA Rincon May 28, 2017 [id number] [place]on MAK PATIENT [facility] May 28, 2017 [facility] [id number] [phone] [place]on MAK PATIENT [facility] (R) TRICA RE(WN R) May 28, 2017 (WNR) [id number] [phone] [place]on MAK PATIENT [facility] (WNR) HMO May 28, 2014 [id number] [phone] Weston MAK PATIENT Selected Encounter This section includes the information on record at [place] for the Encounter. Date/Time Encounter Type Encounter Description Reason Pro vider Source October 18, 2023 09:37 AM Outpatient Encounter PAIN CLINIC IHE Encounter [...] Appointment Type Appointme nt Facility Name October 19, 2023 08:30 AM [facility] [place] [facility] Nov 13, 2023 01:30 PM AMBULATORY [facility] [place] [facility] Dec 14, 2023 11:30 AM [facility]BULATORY [facility] [place] [facility] Dec 28, 2023 10:00 AM [facility]BULAT[facility] [place] [facility] Jan 11, 2024 09:00 AM AMBULATORY [facility] [place] [facility] Jan 14, 2024 11:00 AM AMBULATORY - RE[facility]AB MEDICIN E [facility] [place] [facility] Feb 08, 2024 08:30 AM AMBULATORY [facility] MEDIC[facility] [place] [facility] Feb 26, 2024 08:30 AM AMBULATORY - MEDICINE [facility] [place] [facility] Mar 21, 2024 08:30 AM AMBULATORY - MEDICINE [facility] [place] [facility] Advance Directives: All historical and current Section [...] Source Dec 02, 2020 ADVANCE DIRECTIVE SOULEYMANEZAIRE [place] Encounter Notes: All associated encounter notes This section contains the clinical notes associated to the Encounter. Date/Time Encounter Note(s) Provider Source October 18, 2023 09:37 AM TELEPHONE ENCOUNTE R NOTE: LOCAL TITLE: TELEPHONE NOTE/SPECIALTY CLINIC STANDARD TITLE: TELEPHONE ENCOUNTER NOTE DATE OF NOTE: OCTOBER 18, 2023@09:37 ENTRY DATE: OCTOBER 18, 2023@09:37:44 AUTHOR: LAURA BOOKER EXP COSIGNER: URGENCY: STATUS: COMPLETED Called and spoke with pt to remind them that they have a telephone appt with the Pain clinic on 10/19/2023 at 830am. /jac/ LAURA BOOKER ADVANCED FLUME RIDE OPERATOR Signed: 10/18/2023 09:39 LAURA BOOKER [facility]
--- OUTSIDE RECORDS SUMMARY | 2024-05-20 08:42 | XMS_ITS | Encounter Summary ---
Author Name [facility] [place] [facility] [place] Address [address] [place] [address] Care Team Providers Care Title Curator Name Role Phone KRISTOPHER MAXWELL Primary Care [...] PRESCRIPT ION [id number] 1 May 28, 2017 [id number] Weston MAK PATIENT CAREMARK PRESCRIPT ION [id number] 1 May 28, 2017 [id number] Weston MAKM PATIENT OPTUM RX PRESCRIPT ION RX May 28, 2022 [id number] [phone] Weston MAK ILLIAM PATIENT [facility] HEALTH PLAN ALLEGRA Lamar May 28, 2017 [id number] OBDULIO,W ILLIAM PATIENT [facility] HEALTH PLAN USP May 28, 2017 [facility] [id number] [phone] Weston MAK PATIENT [facility] TRICA RE(WN R) May 28, 2017 (WNR) [id number] Weston MAK PATIENT [facility] (WNR) HMO May 28, 2014 [id number] Weston MAK PATIENT Selected Encounter This section includes the information on record at [place] for the Encounter. Date/Time Encounter Type Encounter Description Reason Provider Source October 11, 2023 02:30 PM OFFICE O/P EST LOW 20 MIN PODIATRY ICD-10-CM L84 Corns and callosities SANTOS LEBRON Sergey Encounter Template Text not used by [place] Assessments - Encounter Diagnoses This section includes the primary and secondary diagnoses documented for the Encounter. Date/Time Primary/Secondary Diagnosis Diagnosis Name Provider Source October 11, 2023 03:08 PM PRIMARY Corns and callosities SANTOS LEBRON October 11, 2023 03:08 PM SECONDARY Pain in left foot SANTOS LEBRON October 11, 2023 03:08 PM SECONDARY Plantar fascial fibromatosis SANTOS LEBRON Plan of Treatment: Future Appointments (+ 6 [...] 19, 2023 08:30 AM AM[place]ATORY [place] [facility] Nov 13, 2023 01:30 PM AM[place]ORY [place]INE [place] [facility] Dec 14, 2023 11:30 AM AM[place]ULATORY [place]ICINE [place] [facility] Dec 28, 2023 10:00 AM AM[place]ULATORY [place]ICINE [place] [facility] Jan 11, 2024 09:00 AM AMBULATORY - MEDICINE [place] [facility] Jan 14, 2024 11:00 AM AMBULATORY - REHAB MEDICIN [place] [facility] [place] [facility] Feb 08, 2024 08:30 AM AMBULATORY [place] MEDICINE [place] [facility] Feb 26, 2024 08:30 AM AM[place]ULATORY [place]ICINE [place] [facility] Mar 21, 2024 08:30 AM AMBULATORY - MEDICINE [facility] N[facility] Social History: Smoking Status (Most current) and Tobacco Use (All prior to encounter date) This section includes the most current, and the historical, smoking and tobacco- related health factors from the [place] facility where the Encounter took place. Current Smoking Status This section includes the most current smoking, or tobacco-related health factor, from the [place] facility where the Encounter took place. Date/Time Current Smoking Status Comment Facil ity Nov 01, 2022 09:00 AM VA-TOBACCO FORMER USER [place] Tobacco Use History This section includes a history of the smoking, or tobacco-related health factors, that were collected on or before the date of the Encounter. The data comes from the [place] facility where the Encounter took place. Date/Time Smoking Status/Tobacco Use Comment F acility Nov 01, 2022 09:00 AM VA-TOBACCO QUIT 15 YRS OR MORE [place] Nov 03, 2021 02:00 PM VA-TOBACCO NEVER USED [place] October 19, 2020 09:00 AM VA-TOBACCO FORMER USER [place] October 19, 2020 09:00 AM VA-TOBACCO QUIT 15 YRS OR MORE [place] Aug 16, 2018 12:32 PM VA-TOBACCO NEVER USED [place] Aug 16, 2017 02:32 PM QUIT TOBACCO USE > 7 YEARS AGO stopped smoking over 25 years ago [facility] Aug 15, 2016 09:59 AM QUIT TOBACCO USE > 7 YEARS AGO quit 25 years ago [facility] Aug 13, 2015 02:47 PM QUIT TOBACCO USE > 7 YEARS AGO smoked cig, ~20/day, quit 20 yrs ago [facility] Aug 10, 2014 01:28 PM QUIT TOBACCO USE > 7 YEARS AGO quit 20+ yrs ago [facility] Advance Directives: All historical and current Section Date Range: From patient's date of to the date document was created. This section includes ALL of a patient's completed or amended [place] Advance and Rescinded Directives. The entries below indicate that a directive exists for the patient, but an actual copy is not included with this document. The data comes from all [place] facilities. Date Advance Directives Provider Source Dec 02, 2020 ADVANCE DIRECTIVE ZAIRE COMER IELD Encounter Notes: All associated encounter notes This section contains the clinical notes associated to the Encounter. Date/Time Encounter Note(s) Provider Source October 11, 2023 02:56 PM PODIATRY NOTE: LOCAL TITLE: PODIATRY NOTE STANDARD TITLE: PODIATRY NOTE DATE OF NOTE: OCTOBER 11, 2023@14:56 ENTRY DATE: OCTOBER 11, 2023@14:56:25 AUTHOR: SANTOS LEBRON EXP COSIGNER: URGENCY: STATUS: COMPLETED LAST SEEN: INITIAL CONSULT VISIT 09/14/2022 NOTE: HAS RECEIVED BOTH COVID VACCINE DOSES AT [facility] S: Pt. is a 68 yo alert [facility] MALE who is seen for CONTINUED podiatric examination AND CARE for treatment of a presenting complaint of A painful GROWTH AND INDICATES A SMALL CIRULAR LESION PLANTAR 5TH LEFT MET HAED THAT IS OF RECENT ONSET (SEVERAL MONTHS) AND ACUTELY PAINFUL AT THIS TIME. HE HAS BEEN SEEN BY AN OUTSIDE FUDGE CANDY MAKER(DR. ROJAS FOR [facility]) AND PREFERS ORTHOSES FROM [place] HIS INSURANCE WILL NOT REIMBURSE FOR THEM Patient has been referred by: DR. GARRETT Location of symptoms are: LATERAL PLANTAR 5TH LEFT MET HEAD Onset of symptoms has been 3 MONTHS due to this being a recent condition that has been exacerbating over the past few weeks. Duration of symptoms is intermittently with periods of exacerbation and remission. Description of symptoms is of an aching-burning nature WITH PAIN LEVEL AT 4/10 AND HAS HAD NO TREATMENT. Contributing factors are: shoes and increased activity-BIOMECHANICAL IMBALANCE AND WEIGHT. Previous treatment: HAS CUSTOM ORTHOSES BUT NO PREVIOUS TREATMENT FOR THIS LESION PMH: Active problems - Computerized Problem List is the source for the followin. Low back pain 2. Tinea 3. Retinitis pigmentosa 4. Ulnar neuritis 5. Hx of abnormal EKG w left axis deviation 03/10/11 6. Deep venous thrombosis of lower extremity 7. 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 arthritis bilateral shoulders 11. multiple surgeries 12. BPH 13. Morbid obesity 14. History of tobacco use *NOTE: REVIEWED ABOVE, NOTING NON-CONTRIBUTORY TO THE CC OTHER THAN THE PRESENCE OF MORBID OBESITY AND LOW BACK ISSUE UNDER TREATMENT WELL Active problems - Computerized Problem List is the source for the followin. Hyperlipidemia ([facility] [id number]) 2. Impaired Fasting Glucose ([facility] [id number]) 3. Erectile Dysfunction ([facility] [id number]) 4. Tinnitus 5. Hearing loss 6. Exposure to Potentially Hazardous Substance ([facility] [id number]) 7. Syncope and collapse 8. Low back [...] Morbid obesity 21. History of tobacco use LAST SEEN: INITIAL CONSULT VISIT TODAY Coronavirus Disease 2019 (COVID-19) Screen The patient reports no COVID-19 diagnosis. The patient reports not waiting for the results of a COVID-19 lab test. The patient reports no fever. The patient reports no new or worsening cough or shortness of breath. The patient reports no cold or flu-like symptoms. The patient reports no new onset of diarrhea, nausea or vomiting. The patient reports no new onset of headache, loss of taste or loss of smell. The patient reports no exposure to someone with COVID-19 within the past 2 weeks. Result: Screen is negative. NOTE: HAS RECEIVED BOTH COVID VACCINE DOSES AT [facility] *PERFORMED AT CHECK-IN AND REVIEWED BY DR. LEBRON PRIOR TO TREATMENT* HPI: Pt. is a 67 [facility] alert [facility] MALE who presents for initial podiatric examination with Dr. Lebron for treatment of a presenting complaint of painful PLANTAR FASCIITIS PER PCP AND BEING IN NEED OF ORTHOSES. Patient has BEEN SEEN BY AN OUTSIDE FUDGE CANDY MAKER(DR. ROJAS FOR NAIL CARWE WELL) AND PREFERS ORTHOSES FROM [place] HIS INSURANCE WILL NOT REIMBURSE FO RTHEM Patient has been referred by: DR. GARRETT Location of symptoms are: MEDIAL PLANTAR CALCANEAL TUBEROSITY ANAD POSTERIOR INSERTION OF ACHILLES TENDON MEDIALLY Onset of symptoms has been 1 YEAR due to this being a recurrent condition that has been exacerbating over the past few weeks. Duration of symptoms is intermittently with periods of exacerbation and remission. Description of symptoms is of an aching-burning nature WITH PAIN LEVEL AT 8/10 FOR WHICH HE RESTS AND TAKES ACETOMINOPHEN AND WILL TRY BIOFREEZE PER OUR DISCUSSION TODAY THAT HE HAS AT HOME.. Contributing factors are: shoes and increased activity-BIOMECHANICAL IMBALANCE AND WEIGHT. Previous treatment: HAS CUSTOM ORTHOSES FROM DR. ROJAS PMH: Active problems - Computerized Problem List is the source for the followin. Hyperlipidemia ([facility] [id number]) 2. Impaired Fasting Glucose ([facility] [id number]) 3. Erectile Dysfunction ([facility] [id number]) 4. Tinnitus 5. Hearing loss 6. Exposure to Potentially Hazardous Substance ([facility] [id number]) 7. Syncope and collapse 8. Low back [...] Morbid obesity 21. History of tobacco use *NOTE: REVIEWED ABOVE, NOTING NON-CONTRIBUTORY TO THE CC OTHER THAN THE PRESENCE OF MORBID OBESITY AND LOW BACK ISSUE UNDER TREATMENT WELL *NOTE: REVIEWED ABOVE NOTING NEW CONCERNS- CHANGES SINCE PREVIOUS VISIT *SEE # [id number] ABOVE Family History: Non-contributory Social History: N/A *NOTE: DENIES ANY RECENT CHANGES IN MEDS UPON QUESTIONING TODAY-SEE RECONCILIATION PERFOMED THIS DATE BELOW TOBACCO USE = NONE Allergies:DIPHENHYDRAMINE Previous Surgery/Hospitalization: N/A TO THE CC HEIGHT:291 lb [132.00 kg] (11/03/2021 14:01) WEIGHT:72 in [182.9 cm] (11/03/2021 14:01) REVIEW OF SYSTEMS: DEFERRED BEING NON-CONTRIBUTORY TO THE CC & I HAVE REVIEWED THE PCP NOTES & PMH WELL. O: DERMATOLOGICAL: Exam reveals skin color, TEMP & text to be WNL. There is absence of hair noted. Nails are thickened yellow-brown discolored and displaying flakiness, crumbling, sub-ungual debris and rubor in the affected nail grooves. The affected nails are 1-2-3-4-5 bilat BUT UNDER CARE OF DR. ROJAS PER PATIENTS DESIRE. There IS A superficial painful hyperkeratotic lesion noted at this time THAT IS .2CM IN DIAMETER WITH A CENTRAL CORE. There are no rashes, ulcers, indurations or nodules noted. VASCULAR: Exam reveals PT pulses to be absent non-palpable bilateral & DP PULSES ARE +1 equal & symmetrical bilateral. CFT is < 3 sec x 10. There are no superficial varices noted and there is +2 edema noted. MUSCULOSKELETAL: Exam reveals muscle strength and tone to be equal & symmetrical bilaterally & WNL for an individual of this age and present physical-medical condition. There is pain free ROM at all joints distal to and including the ankle. NORMAL ARCH AND *THERE ARE NO APPARENT BONY ABNORMALITIES NOTED AT THIS TIME BUT HE IS CONCERNED ABOUT A CONTRACTED 2ND RT DIGIT AND MILD DEVIATION OF THE DISTAL PHALANX HALLUX BILATERAL THAT I DISPENSED TUBEFOAM FOR AND MAY BE INTERESTED IN SURGICAL INTERVENTION. NEUROLOGICAL: Exam reveals S/D, vibratory, light touch & proprioception sensations to be equal & symmetrical bilaterally & WNL for an individual of this age and present physical-medical status. Protective sensation utilizing a Wendover-Zena lOg monofilament is 10/10 bilateral. BIOMECHANICAL: Exam is deferred at this time BEING NON-CONTRIBUTORY TO THE CC .. A: Clinical Impression is IPK PLANTAR 5TH LEFT MET HEAD & PLANTAR FASCIITIS PT HAS REQUESTED NEW CUSTOM ORTHOSES WHICH WILL BE ORDERED AND SENT TO HIS HOME- SAME PREVIOUS PAIR. P: Treatment consists of PARING-DEBRIDEMENT OF THE LESION WITH THE APPLICATION OF AGNOS, A FOAM APERTURE ANAD MOLESKIN TO BE REMOVED IN 2-3 DAYS AND POSSIBLE PUNCH BIOPSY FOR EXCISION THAT I DO NOT PERFORM AT OUR FACILITY. I DISCUSSED THE FINDINGS & PLAN WITH PATIENT (UNCHANGED SINCE PREVIOUS VISIT) & PATIENT AGREES AND UNDERSTANDS PLAN Medication Reconciliation: PERFORMED TODAY - SEE BELOW. Outpatient: Has the patient been taking medications as documented in the EMLR? YES: The patient has been taking medications as documented in the EMLR. Essential Medication List for Review used to complete this medication reconciliation. INCLUDED IN THIS LIST: Alphabetical list of active outpatient prescriptions dispensed from this VA (local) and dispensed from another [place] or [facility] facility (remote) as well as inpatient orders (local, pending and active), local clinic medications, locally documented non-VA medications, and local prescriptions that have or been discontinued in the past 90 days. - All changes in medications, including all non-VA/Herbal/OTC medications were entered into CPRS. - If there were any medications the patient should no longer take, they were discontinued. - The patient/caregiver was instructed to update this list, discard old lists, and take this list to the next appointment, whether with a VA or non-VA provider. /jac/ SANTOS LEBRON DPM FUDGE CANDY MAKER Signed: 09/14/2022 10:37 Family History: Non-contributory Social History: N/A Current medications: Active Outpatient Medications (including Supplies): *NOTE: DENIES ANY RECENT CHANGES IN MEDS UPON QUESTIONING TODAY-SEE RECONCILIATION PERFOMED THIS DATE BELOW TOBACCO USE = NONE Active Non-VA Medications Status = 1) Non-VA ACETAMINOPHEN 325MG TAB 1300MG BY MOUTH THREE ACTIVE TIMES DAILY NEEDED 2) Non-VA ALFUZOSIN HCL 10MG SA TAB 10MG BY MOUTH DAILY ACTIVE 3) Non-VA GABAPENTIN 300MG CAP 600MG BY MOUTH THREE ACTIVE TIMES A DAY 4) Non-VA TADALAFIL 5MG TAB 5MG BY MOUTH DAILY ACTIVE Allergies:DIPHENHYDRAMINE Previous Surgery/Hospitalization: N/A TO THE CC HEIGHT:291 lb [132.00 kg] (11/03/2021 14:01) WEIGHT:72 in [182.9 cm] (11/03/2021 14:01) REVIEW OF SYSTEMS: DEFERRED BEING NON-CONTRIBUTORY TO THE CC & I HAVE REVIEWED THE PCP NOTES & PMH WELL. O: DERMATOLOGICAL: Exam reveals skin color, TEMP & text to be WNL. There is absence of hair noted. Nails are thickened yellow-brown discolored and displaying flakiness, crumbling, sub-ungual debris and rubor in the affected nail grooves. The affected nails are 1-2-3-4-5 bilat BUT UNDER CARE OF DR. ROJAS PER PATIENTS DESIRE. There are no superficial painful hyperkeratotic lesions noted at this time. There are no rashes, ulcers, indurations or nodules noted. VASCULAR: Exam reveals PT pulses to be absent non-palpable bilateral & DP PULSES ARE +1 equal & symmetrical bilateral. CFT is < 3 sec x 10. There are no superficial varices noted and there is +2 edema noted. MUSCULOSKELETAL: Exam reveals muscle strength and tone to be equal & symmetrical bilaterally & WNL for an individual of this age and present physical-medical condition. There is pain free ROM at all joints distal to and including the ankle. NORMAL ARCH AND *THERE ARE NO APPARENT BONY ABNORMALITIES NOTED AT THIS TIME. NEUROLOGICAL: Exam reveals S/D, vibratory, light touch & proprioception sensations to be equal & symmetrical bilaterally & WNL for an individual of this age and present physical-medical status. Protective sensation utilizing a Wendover-Zena lOg monofilament is 10/10 bilateral. BIOMECHANICAL: Exam is deferred at this time due to the presence of pain. A: Clinical Impression is painful ACUTE PLANTAR FASCIITIS AND ASSOCIATED ACHILLES TENDONITIS BILATERAL. P: Treatment consists of STS CASTING FOR NEW CUSTOM ORTHOSES. All care rendered without complications & the patient is progressing well after podiatric care this date and will be sCONTACTE WHEN THE ORTHOSES ARRIVE. HE HAS REQUESTED 3 PAIR AND WAS ADVSED THAT HE COULD OBTAIN THEM OVER 3 YEARS WE ARE ONLY PERMITTED TO ORDER 1 PAIR PER YEAR.* I DISCUSSED THE FINDINGS & PLAN WITH PATIENT (UNCHANGED SINCE PREVIOUS VISIT) & PATIENT AGREES AND UNDERSTANDS PLAN Medication Reconciliation: PERFORMED TODAY - SEE BELOW. Outpatient: Has the patient been taking medications as documented in the EMLR? YES: The patient has been taking medications as documented in the EMLR. Essential Medication List for Review used to complete this medication reconciliation. INCLUDED IN THIS LIST: Alphabetical list of active outpatient prescriptions dispensed from this VA (local) and dispensed from another VA or [facility] facility (remote) as well as inpatient orders (local, pending and active), local clinic medications, locally documented non-VA medications, and local prescriptions that have or been discontinued in the past 90 days. - All changes in medications, including all non-VA/Herbal/OTC medications were entered into CPRS. - If there were any medications the patient should no longer take, they were discontinued. - The patient/caregiver was instructed to update this list, discard old lists, and take this list to the next appointment, whether with a VA or non-VA provider. /jac/ SANTOS LEBRON DPM FUDGE CANDY MAKER Signed: 09/14/2022 10:37 /tisha LEBRON DPM FUDGE CANDY MAKER Signed: 10/11/2023 15:09 SANTOS LEBRON
--- OUTSIDE RECORDS SUMMARY | 2024-05-20 08:42 | XMS_ITS | Encounter Summary ---
Author Name [facility] [place] Address [address] [place] [address] Care Team Providers Care Diagnostic Cardiac Sonographer Name Role Phone KRISTOPHER MAXWELL Primary Care Provider [facility] Insurance Providers: All historical and [...] PRESCRIPT ION [id number] 1 May 28, 2017 [id number] [place] MAK PATIENT [place]EM[place] PRESCRIPT ION [id number] 1 May 28, 2017 [id number] [phone] Weston MAKM PATIENT OPTUM RX PRESCRIPT ION RX May 28, 2022 [id number] Weston MAKIAM PATIENT [facility] PLAN ALLEGRA Rin[place] May 28, 2017 [id number] Weston MAK PATIENT [facility] HEALTH PLAN [facility] May 28, 2017 [facility] [id number] OBDULIO,W ILLIAM PATIENT [facility] (R) TRICA RE(WN R) May 28, 2017 (WN) [id number] OBDULIO,W ILLIAM PATIENT [facility] May 28, 2014 [id number] Weston MAK PATIENT Selected Encounter This section includes the information on record at [place] for the Encounter. Date/Time Encounter Type Encounter Description Reason Provider Source October 19, 2023 09:27 AM QNHP OL DIG ASSMT&MGMT 5-10 CLINICAL PHARMACY ICD-10-CM M54.50 Low back pain, unspecified ARIS VIRAMONTES [facility] Encounter Template Text not used by [place] Assessments - Encounter Diagnoses This section includes the primary and secondary diagnoses documented for the Encounter. Date/Time Primary/Secondary Diagnosis Diagnosis Name Provider Source October 19, 2023 09:29 AM PRIMARY Low back pain, unspecified ARIS VIRAMONTES [place] Plan of Treatment: Future Appointments (+ 6 months) and Future Tests (+/- 45 days) The Plan of Treatment section includes future care activities for the patient from all [place] treatmentfacilities. This section includes future appointments and future orders which are active, pending or scheduled. Future Appointments This section includes appointments that were scheduled to occur 6 months from the date of the Encounter, up to a maximum of 20 appointments. The data comes from all [place] treatment facilities. Appointment Date/Time Appointment Type Appointme nt Facility Name Nov 13, 2023 01:30 PM AMBULATORY - MEDICINE [place] [facility] Dec 14, 2023 11:30 AM AMBULATORY - MEDICINE [place] [facility] Dec 28, 2023 10:00 AM AMBULATORY - MEDICINE [place] [facility] Jan 11, 2024 09:00 AM AMBULATORY - MEDICINE [place] [facility] Jan 14, 2024 11:00 AM AMBULATORY - REHAB MEDICIN E [place] [facility] [place] [facility] Feb 08, 2024 08:30 AM AMBULATORY - MEDICINE [place] [facility] Feb 26, 2024 08:30 AM AMBULATORY - MEDICINE [facility] [place] [place] [facility] Mar 21, 2024 08:30 AM AMBULATORY - MEDICINE [facility] N[facility]L [facility] Social History: Smoking Status (Most current) and Tobacco Use (All prior to encounter date) This section includes the most current, and the historical, smoking and tobacco- related health factors from the [place] facility where the Encounter took place. Current Smoking Status This section includes the most current smoking, or tobacco-related health factor, from the [place] facility where the Encounter took place. Date/Time Current Smoking Status Comment Facil ity Nov 01, 2022 09:00 AM VA-TOBACCO FORMER USER [place] Tobacco Use History This section includes a history of the smoking, or tobacco-related health factors, that were collected on or before the date of the Encounter. The data comes from the [place] facility where the Encounter took place. Date/Time Smoking Status/Tobacco Use Comment F acility Nov 01, 2022 09:00 AM VA-TOBACCO QUIT 15 YRS OR MORE [place] Nov 03, 2021 02:00 PM VA-TOBACCO NEVER USED [place] October 19, 2020 09:00 AM VA-TOBACCO FORMER USER [place] October 19, 2020 09:00 AM VA-TOBACCO QUIT 15 YRS OR MORE [place] Aug 16, 2018 12:32 PM VA-TOBACCO NEVER USED [place] Aug 16, 2017 02:32 PM QUIT TOBACCO USE > 7 YEARS AGO stopped smoking over 25 years ago [facility] Aug 15, 2016 09:59 AM QUIT TOBACCO USE > 7 YEARS AGO quit 25 years ago [facility] Aug 13, 2015 02:47 PM QUIT TOBACCO USE > 7 YEARS AGO smoked cig, ~20/day, quit 20 yrs ago [facility] Aug 10, 2014 01:28 PM QUIT TOBACCO USE > 7 YEARS AGO quit 20+ yrs ago [facility] Advance Directives: All historical and current Section Date Range: From patient's date of to the date document was created. This section includes ALL of a patient's completed or amended [place] Advance and Rescinded Directives. The entries below indicate that a directive exists for the patient, but an actual copy is not included with this document. The data comes from all [facility]. Date Advance Directives Provider Source Dec 02, 2020 ADVANCE DIRECTIVE ZAIRE COMER IE Encounter Notes: All associated encounter notes This section contains the clinical notes associated to the Encounter. Date/Time Encounter Note(s) Provider Source October 19, 2023 09:27 AM MEDICATION MGT CON SULT: LOCAL TITLE: CONSULT REPORT/NON FORMULARY PADR STANDARD TITLE: MEDICATION MGT CONSULT DATE OF NOTE: OCTOBER 19, 2023@09:27 ENTRY DATE: OCTOBER 19, 2023@09:27:54 AUTHOR: ARIS VIRAMONTES EXP COSIGNER: URGENCY: STATUS: COMPLETED The medical record has been reviewed with regard to this restricted drug request. Medication requested: DICLOFENAC EPOLAMINE 1.3% PATCH Medication indication: Low Back Pain Medical history relevant to this request: -Due to bilateral wrist casts, administration of topical diclofenac gel is impractical/burdensome. The request is approved - A documented contraindication exists to the preferred formulary alternative(s) Please consider transition to topical gel once wrist function is fully restored. /es/ Aris Viramontes, PharmD Clinical Pharmacist Practitioner Signed: 10/19/2023 09:29 ARIS VIRAMONTES [place]
--- OUTSIDE RECORDS SUMMARY | 2024-05-20 08:43 | XMS_ITS | Encounter Summary ---
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 Insurance Providers: All historical and [...] PRESCRIPT ION RX730 1 May 28, 2017 [id number] Weston MAKM PATIENT CAREMARK PRESCRIPT ION RX730 1 May 28, 2017 [id number] OBDULIO,Weston ILLIAM PATIENT OPTUM RX PRESCRIPT ION RX May 28, 2022 [id number] OBDULIO,Weston ILLIAM PATIENT [facility] PLAN ALLEGRA Rincon May 28, 2017 [id number] [phone] Weston MAK PATIENT [facility] PLAN USP May 28, 2017 [facility] [id number] Weston MAK PATIENT [facility] (WNR) TRICA RE(WN R) May 28, 2017 (WNR) [id number] [phone] Weston MAK PATIENT [facility] (WNR) HMO May 28, 2014 [id number] Weston MAK PATIENT Selected Encounter This section includes the information on record at [place] for the Encounter. Date/Time Encounter Type Encounter Description Reason Pro vider Source Dec 14, 2023 12:38 PM Outpatient Encounter TELEPHONE/ANCILLARY IHE Encounter Template Text not used by [place] Plan of Treatment: Future Appointments (+ 6 months) and Future Tests (+/- 45 days) The Plan of Treatment section includes future care activities for the patient from all [place] treatmentfacilities. This section includes future appointments and future orders which are active, pending or scheduled. Future Appointments This section includes appointments that were scheduled to occur 6 months from the date of the Encounter, up to a maximum of 20 appointments. The data comes from all [place] treatment facilities. Appointment Date/Time Appointment Type Appointme nt Facility Name Dec 28, 2023 10:00 AM [facility] [place] [facility] Jan 11, 2024 09:00 AM [facility] [place] [facility] Jan 14, 2024 11:00 AM AMBULAT[facility] - [facility]ICIN [facility] [place] [facility] Feb 08, 2024 08:30 AM [facility] [place] [facility] Feb 26, 2024 08:30 AM [facility] [place] [facility] Mar 21, 2024 08:30 AM [facility] [place] [facility] Apr 22, 2024 08:30 AM [facility] [place] [facility] May 23, 2024 08:30 AM [facility] [place] [facility] Jun 05, 2024 10:00 AM [facility] [place] [facility] Jun 05, 2024 11:00 AM AMBULATORY - REHAB MEDICIN E [facility] Lab Results: +/- 30 days of [...] Range Comment Dec 14, 2023 12:27 PM [facility] METHADONE SCREEN Specimen Type: URINE Comment: DERECK test are qualitative, any L or H flags only indicate a VA alert was sent. Ordering Provider: LACEY MCNAMARA Report Released Date/Time: Dec 14, 2023 11:59 AM Reporting Lab: [address] [address] Performing Lab: [facility] [address] [facility] [address] METHADONE SCREEN None detected(Nega tive) L Negative Dec 14, 2023 12:27 PM [facility] ALCOHOL, ETHYL URINE PANEL Specimen Type: URINE [...] Dec 14, 2023 11:59 AM Reporting Lab: [address] [address] Performing Lab: [address] [address] ALCOHOL, ETHYL URINE NONE-DETECTED mg/dL NONE-DETEC PENNY, cutoff = 10 mg/dL PH, DERECK 5.8 [pH] 4-10 CREATININE, DERECK 84.74 mg/dL >20 SP.GRAVITY, DERECK 1.011 1.00 3-1.02 0 Dec 14, 2023 12:27 PM [facility] AMPHETAMINES SCREEN PANEL Specimen Type: URINE Comment: [...] Dec 14, 2023 11:59 AM Reporting Lab: [address] [address] Performing Lab: [address] [address] AMPHETAMINES SCREEN NONE-DETECTED None-Detec penny, Cutoff = 1000 ng/mL PH, DERECK 5.8 [pH] 4-10 CREATININE, DERECK 84.74 mg/dL >20 SP.GRAVITY, DERECK 1.011 1.00 3-1.02 0 Dec 14, 2023 12:27 PM [facility] FENTANYL SCREEN PANEL Specimen Type: URINE Comment: [...] Dec 14, 2023 11:59 AM Reporting Lab: [address] [address] Performing Lab: [address] [address] FENTANYL SCREEN NONE-DETECTE D ng/mL Negative: Cutoff = 1.00 ng/mL PH, DERECK 5.8 [pH] 4-10 CREATININE, DERECK 85.39 mg/dL >20 SP.GRAVITY, DERECK 1.011 1.00 3-1.02 0 Dec 14, 2023 12:27 PM [facility] BENZODIAZEPINES SCREEN PANEL Specimen Type: URINE Comment: [...] Dec 14, 2023 11:59 AM Reporting Lab: [address] [address] Performing Lab: [address] [address] BENZODIAZEPINES SCREEN NONE-DETECTED None-Detec penny, Cutoff = 200 ng/mL PH, DERECK 5.8 [pH] 4-10 CREATININE, DERECK 84.74 mg/dL >20 SP.GRAVITY, DERECK 1.011 1.00 3-1.02 0 Dec 14, 2023 12:27 PM [facility] BUPRENORPHINE SCREEN PANEL Specimen Type: URINE Comment: [...] Dec 14, 2023 11:59 AM Reporting Lab: [address] [address] Performing Lab: [address] [address] BUPRENORPHINE (URINE) NONE-DETECTED None Detected, Cutoff = 10.0 ng/mL PH, DERECK 5.8 [pH] 4-10 CREATININE, DERECK 84.74 mg/dL >20 SP.GRAVITY, DERECK 1.011 1.00 3-1.02 0 Dec 14, 2023 12:27 PM [facility] CANNABINOIDS SCREEN PANEL Specimen Type: URINE Comment: [...] Dec 14, 2023 11:59 AM Reporting Lab: [address] [address] Performing Lab: [address] [address] CANNABINOIDS SCREEN NONE-DETECTED None-Detec penny,Cutoff = 50 ng/mL PH, DERECK 5.8 [pH] 4-10 CREATININE, DERECK 84.74 mg/dL >20 SP.GRAVITY, DERECK 1.011 1.00 3-1.02 0 Dec 14, 2023 12:27 PM [facility] COCAINE SCREEN PANEL Specimen Type: URINE Comment: [...] Dec 14, 2023 11:59 AM Reporting Lab: [address] [address] Performing Lab: [address] [address] COCAINE SCREEN NONE-DETECTED N one-Detec penny,Cutoff = 300 ng/mL PH, DERECK 5.8 [pH] 4-10 CREATININE, DERECK 84.74 mg/dL >20 SP.GRAVITY, DERECK 1.011 1.00 3-1.02 0 Dec 14, 2023 12:27 PM [facility] OPIATES SCREEN PANEL Specimen Type: URINE Comment: [...] Dec 14, 2023 11:59 AM Reporting Lab: [address] [address] Performing Lab: [address] [address] OPIATES SCREEN NONE-DETECTED N one-Detec penny, Cutoff = 300 ng/mL PH, DERECK 5.8 [pH] 4-10 CREATININE, DERECK 84.74 mg/dL >20 SP.GRAVITY, DERECK 1.011 1.00 3-1.02 0 Dec 14, 2023 12:27 PM [facility] OXYCODONE SCREEN PANEL Specimen Type: URINE Comment: [...] Dec 14, 2023 11:59 AM Reporting Lab: [address] [address] Performing Lab: [address] [address] OXYCODONE SCREEN NONE-DETECTED None-Detec penny, Cutoff = [...] this document. The data comes from all [place] facilities. Date Advance Directives Provider Source Dec 02, 2020 ADVANCE DIRECTIVE ANANDA COMERCY RENUKA MÉNDEZ IE Encounter Notes: All associated encounter notes This section contains the clinical notes associated to the Encounter. Date/Time Encounter Note(s) Provider Source Dec 14, 2023 12:39 PM LETTERS: LOCAL TITLE: PATIENT LETTER (B) STANDARD TITLE: LETTERS DATE OF NOTE: DEC 14, 2023@12:39 ENTRY DATE: DEC 14, 2023@12:39:05 AUTHOR: LAURA BOOKER EXP COSIGNER: URGENCY: STATUS: COMPLETED [facility] Toll Free Number ext [phone] [facility] scheduling can be reached at ext. [phone] [facility]- ext. [phone] [facility]- ext. [phone] [facility]- ext. [phone] DEC 14, 2023 TEODORA MAK [address] [place] [id number] Dear TEODORA MAK Thank you for choosing the [facility] Affairs ([place]) Medical [place] as your primary choice for health care. [...] would like to be seen, please contact [place] Call Center at ext. [phone] to schedule an appointment. Thank you for your service to our nation, and we look forward to hearing from you soon. Sincerely, [facility] [address] [facility] [address] [place] [address] [place] [address] ext [phone] [facility] [address] [place] [address] [place] [address] ext. [phone] [facility] [address] [facility] [address] [place] [address] [place] [address] ext. [phone] [facility] BOOKER [facility] Dec 14, 2023 12:39 PM TELEPHONE ENCOUNTE R NOTE: LOCAL TITLE: TELEPHONE NOTE/SPECIALTY CLINIC STANDARD TITLE: TELEPHONE ENCOUNTER NOTE DATE OF NOTE: DEC 14, 2023@12:39 ENTRY DATE: DEC 14, 2023@12:39:47 AUTHOR: LAURA BOOKER EXP COSIGNER: URGENCY: STATUS: COMPLETED LVM asking vet if could schedule 12/28/2023 Tele @ 10 am instead of 930 due to scheduling conflict. /tisha BOOKER [facility] Signed: 12/14/2023 12:41 Receipt Acknowledged By: 12/14/2023 12:51 /jac/ YESSI STONE [facility] Dec 14, 2023 12:38 PM ADMINISTRATIVE NOT E: LOCAL TITLE: ADMINISTRATIVE RECALL NOTE STANDARD TITLE: ADMINISTRATIVE NOTE DATE OF NOTE: DEC 14, 2023@12:38 ENTRY DATE: DEC 14, 2023@12:38:36 AUTHOR: LAURA BOOKER EXP COSIGNER: URGENCY: STATUS: COMPLETED RTC orders: Unable to contact patient: Attempts to contact: 1st attempt: Left voicemail 2nd attempt: Letter mailedDisposition onAu 3rd attempt: 4th attempt: /tisha BOOKER [employer] Signed: 12/14/2023 12:38 LAURA BOOKER [facility]
--- OUTSIDE RECORDS SUMMARY | 2024-05-20 08:43 | XMS_ITS ---
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 Phone KRISTOPHER MAXWELL Primary Care Provider [facility] brianda Insurance Providers: All historical and current [...] PRESCRIPT ION RX730 1 May 28, 2017 [id number] Weston MAK DARION PATIENT CAREMARK PRESCRIPT ION RX730 1 May 28, 2017 [id number] [phone] Weston MAK DANIELLEIAM PATIENT OPTUM RX PRESCRIPT ION RX May 28, 2022 [id number] Weston MAK ILLBIJAL PATIENT [facility] PLAN ALLEGRA Rincon May 28, 2017 [id number] OBDULIO,W ILLIAM PATIENT [facility] HEALTH PLAN USP May 28, 2017 [facility] [id number] OBDULIO,W ILLIAM PATIENT [facility] (WNR) TRICA RE(WN R) May 28, 2017 (WNR) [id number] OBDULIO,W ILLIAM PATIENT [facility] ([facility] HMO May 28, 2014 [id number] [phone] OBDULIO,W ILLIAM PATIENT Selected Encounter This section includes the information on record at [place] for the Encounter. Date/Time Encounter Type Encounter Description Reason Provider Source Dec 04, 2023 02:47 PM QNHP OL DIG ASSMT&MGMT 5-10 PAIN CLINIC ICD-10-CM M54.50 Low back pain, unspecified HEMAL MCNAMARA Brianda Encounter Template Text not used by [place] Assessments - Encounter Diagnoses This section includes the primary and secondary diagnoses documented for the Encounter. Date/Time Primary/Secondary Diagnosis Diagnosis Name Provider Source Dec 04, 2023 02:50 PM PRIMARY Low back pain, unspecified [facility] [place] [facility] Plan of Treatment: Future Appointments (+ 6 [...] 14, 2023 11:30 AM AMBULATORY - MEDICINE [place] [facility] [place] [facility] Dec 28, 2023 10:00 AM AMBULATORY - MEDICINE [place] [facility] [place] [facility] Jan 11, 2024 09:00 AM AMBULATORY - MEDICINE [place] [facility] [place] [facility] Jan 14, 2024 11:00 AM AMBULATORY - [facility]AB MEDICIN E [facility] [place] [facility] Feb 08, 2024 08:30 AM AMBULATORY [facility] MEDIC[facility] [place] [facility] Feb 26, 2024 08:30 AM AMBULATORY - MEDICINE [facility] [place] [facility] Mar 21, 2024 08:30 AM AMBULATORY - MEDICINE [facility] [place] [facility] Apr 22, 2024 08:30 AM AMBULATORY - MEDICINE [facility] [place] [facility] May 23, 2024 08:30 AM AMBULATORY - MEDICINE [place] [facility] [place] [facility] Jun 05, 2024 10:00 AM AMBULATORY - MEDICINE [facility] [place] [facility] Jun 05, 2024 11:00 AM [facility] Lab Results: +/- 30 days of the encounter This section includes the Chemistry and Hematology Lab Results on record with [place] for the patient. Radiology Reports and Pathology Reports are provided separately, in subsequent sections. Lab Results This section contains the Chemistry/Hematology Results that were resulted 30 days before or 30 daysafter the date of the Encounter. Date/Time Source Result Type Result - Unit Interpretation Reference Range Comment Dec 14, 2023 12:27 PM [facility] METHADONE SCREEN Specimen Type: URINE Comment: DERECK test are qualitative, any L or H flags only indicate a VA alert was sent. Ordering Provider: LACEY MCNAMARA Report Released Date/Time: Dec 14, 2023 11:59 AM Reporting Lab: [facility] [address] [facility] [address] Performing Lab: [facility] [address] [facility] [address] METHADONE SCREEN None detected(Nega tive) L Negative Dec 14, 2023 12:27 PM [facility] ALCOHOL, ETHYL URINE PANEL Specimen Type: URINE [...] Dec 14, 2023 11:59 AM Reporting Lab: [address] [address] Performing Lab: [address] [address] ALCOHOL, ETHYL URINE NONE-DETECTED mg/dL NONE-DETEC PENNY, cutoff = 10 mg/dL PH, DERECK 5.8 [pH] 4-10 CREATININE, DERECK 84.74 mg/dL >20 SP.GRAVITY, DERECK 1.011 1.00 3-1.02 0 Dec 14, 2023 12:27 PM [facility] AMPHETAMINES SCREEN PANEL Specimen Type: URINE Comment: [...] Dec 14, 2023 11:59 AM Reporting Lab: [address] [address] Performing Lab: [address] [address] AMPHETAMINES SCREEN NONE-DETECTED None-Detec penny, Cutoff = 1000 ng/mL PH, DERECK 5.8 [pH] 4-10 CREATININE, DERECK 84.74 mg/dL >20 SP.GRAVITY, DERECK 1.011 1.00 3-1.02 0 Dec 14, 2023 12:27 PM [facility] FENTANYL SCREEN PANEL Specimen Type: URINE Comment: [...] Dec 14, 2023 11:59 AM Reporting Lab: [address] [address] Performing Lab: [address] [address] FENTANYL SCREEN NONE-DETECTE D ng/mL Negative: Cutoff = 1.00 ng/mL PH, DERECK 5.8 [pH] 4-10 CREATININE, DERECK 85.39 mg/dL >20 SP.GRAVITY, DERECK 1.011 1.00 3-1.02 0 Dec 14, 2023 12:27 PM [facility] BENZODIAZEPINES SCREEN PANEL Specimen Type: URINE Comment: [...] Dec 14, 2023 11:59 AM Reporting Lab: [address] [address] Performing Lab: [address] [address] BENZODIAZEPINES SCREEN NONE-DETECTED None-Detec penny, Cutoff = 200 ng/mL PH, DERECK 5.8 [pH] 4-10 CREATININE, DERECK 84.74 mg/dL >20 SP.GRAVITY, DERECK 1.011 1.00 3-1.02 0 Dec 14, 2023 12:27 PM [facility] BUPRENORPHINE SCREEN PANEL Specimen Type: URINE Comment: [...] Dec 14, 2023 11:59 AM Reporting Lab: [address] [address] Performing Lab: [address] [address] BUPRENORPHINE (URINE) NONE-DETECTED None Detected, Cutoff = 10.0 ng/mL PH, DERECK 5.8 [pH] 4-10 CREATININE, DERECK 84.74 mg/dL >20 SP.GRAVITY, DERECK 1.011 1.00 3-1.02 0 Dec 14, 2023 12:27 PM [facility] COCAINE SCREEN PANEL Specimen Type: URINE Comment: [...] Dec 14, 2023 11:59 AM Reporting Lab: [address] [address] Performing Lab: [address] [address] COCAINE SCREEN NONE-DETECTED N one-Detec penny,Cutoff = 300 ng/mL PH, DERECK 5.8 [pH] 4-10 CREATININE, DERECK 84.74 mg/dL >20 SP.GRAVITY, DERECK 1.011 1.00 3-1.02 0 Dec 14, 2023 12:27 PM [facility] CANNABINOIDS SCREEN PANEL Specimen Type: URINE Comment: [...] Dec 14, 2023 11:59 AM Reporting Lab: [address] [address] Performing Lab: [address] [address] CANNABINOIDS SCREEN NONE-DETECTED None-Detec penny,Cutoff = 50 ng/mL PH, DERECK 5.8 [pH] 4-10 CREATININE, DERECK 84.74 mg/dL >20 SP.GRAVITY, DERECK 1.011 1.00 3-1.02 0 Dec 14, 2023 12:27 PM [facility] OPIATES SCREEN PANEL Specimen Type: URINE Comment: [...] Dec 14, 2023 11:59 AM Reporting Lab: [address] [address] Performing Lab: [address] [address] OPIATES SCREEN NONE-DETECTED N one-Detec penny, Cutoff = 300 ng/mL PH, DERECK 5.8 [pH] 4-10 CREATININE, DERECK 84.74 mg/dL >20 SP.GRAVITY, DERECK 1.011 1.00 3-1.02 0 Dec 14, 2023 12:27 PM [facility] OXYCODONE SCREEN PANEL Specimen Type: URINE Comment: [...] Dec 14, 2023 11:59 AM Reporting Lab: [facility] [address] [facility] [address] Performing Lab: [facility] [address] [facility] [address] OXYCODONE SCREEN NONE-DETECTED None-Detec penny, Cutoff = [...] Dec 02, 2020 ADVANCE DIRECT[address] ZAIRE COMER [facility] IE Encounter Notes: All associated encounter notes This section contains the clinical notes associated to the Encounter. Date/Time Encounter Note(s) Provider Source Dec 04, 2023 02:47 PM ACCOUNTING OF DISC LOSURES NOTE: LOCAL TITLE: STATE PRESCRIPTION DRUG MONITORING PROGRAM STANDARD TITLE: ACCOUNTING OF DISCLOSURES NOTE DATE OF NOTE: DEC 04, 2023@14:47:54 ENTRY DATE: DEC 04, 2023@14:47:54 AUTHOR: HEMAL MCNAMARA EXP COSIGNER: URGENCY: STATUS: COMPLETED This PDMP query was submitted by Hemal Mcnamara. The clinical justification for this PDMP query is to review controlled substances prescribed outside of the [facility], and any additional information that may become available, as an important component of standard clinical care, and in accordance with [facility] policy. Patient information was shared with the PDMP [employer] [place]. Prescription(s) filled outside the [facility] in the last 90 days are noted. However, they do not raise significant safety concerns and do not influence the treatment plan at this time. Fill Date ID Written Drug Qty Days Prescriber Rx # Pharmacy Refill Daily Dose * Pymt Type GREASE MAKER HEAD 10/25/2023 2 10/25/2023 Tramadol Hcl 50 Mg Tablet 15.00 3 Pe Sha [id number] [facility] 0/0 50.00 [facility]ME Comm Ins [place] 10/24/2023 4 10/19/2023 Pregabalin 225 Mg Capsule 60.00 30 Be Zaan [id number] [facility] (4904[place] 0/0 /[facility] [place] 10/13/2023 2 10/13/2023 Oxycodone Hcl (Ir) 5 Mg Tablet 5.00 2 Rm Art [id number] [facility] (1604) 0/0 18.75 MME Comm Ins [place] 10/01/2023 4 09/28/2023 Pregabalin 225 Mg Capsule 60.00 30 Be Zana [id number] [facility] (4904) 0/0 /[facility] 09/14/2023 3 09/14/2023 Pregabalin 200 Mg Capsule 28.00 14 Be Zana [id number] [facility] (4904) 0/0 /[facility] [place] 09/07/2023 3 09/07/2023 Pregabalin 100 Mg Capsule 42.00 14 Be Zana [id number] [facility] (4904) 0/0 /[facility] [place] 08/31/2023 3 08/31/2023 Pregabalin 75 Mg Capsule 42.00 14 Be Zana [id number] [facility] (4904) 0/0 /[facility] [place] 08/24/2023 3 08/24/2023 Pregabalin 100 Mg Capsule 28.00 14 Be Zana [id number] [facility] (4904) 0/0 /[facility] [place] 07/26/2023 2 07/26/2023 Oxycodone-Acetaminophen 5-325 40.00 5 Da Kaylen [id number] [facility] (9935) 0/0 60.00 MME Comm Ins [place] 07/13/2023 2 07/13/2023 Oxycodone-Acetaminophen 5-325 40.00 3 Da Kaylen [id number] [facility] (9935) 0/0 100.00 MME Comm Ins [place] 06/13/2023 2 06/12/2023 Gabapentin 600 Mg Tablet 270.00 90 [place] [id number] Bishnu (8260) 0/0 Comm Ins [place] 03/08/2023 1 03/06/2023 Gabapentin 600 Mg Tablet 270.00 90 [place] [id number] Bishnu (8260) 0/0 [place] Ins [place] 11/01/2022 1 07/12/2022 Gabapentin 600 Mg Tablet 270.00 90 An [place] [id number] Bishnu (8272) 1/ Comm Ins [place] 07/25/2022 2 07/12/2022 Gabapentin 600 Mg Tablet 270.00 90 An Sha [id number] Bishnu (8272) 0/ Comm Ins [place] 05/04/2022 2 05/01/2022 Gabapentin 600 Mg Tablet 270.00 90 [place] [id number] Bishnu (8272) 0/0 [place] Ins [place] 02/06/2022 1 02/02/2022 Gabapentin 600 Mg Tablet 270.00 90 [place] [id number] Bishnu (8272) 0/0 Comm Ins [place] /jac/ HEMAL MCNAMARA CLINICAL PHARMACIST PRACTITIONER, PAIN Signed: 12/04/2023 14:48 HEMAL MCNAMARA [facility]
--- OUTSIDE RECORDS SUMMARY | 2024-05-20 08:43 | XMS_ITS ---
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 Role Phone KRISTOPHER MAXWELL [facility] Insurance Providers: All historical and [...] PRESCRIPT ION RX730 1 May 28, 2017 [id number] [phone] Weston MAKM PATIENT CAREMARK PRESCRIPT ION RX730 1 May 28, 2017 [id number] OBDULIO,Weston ILLIAM PATIENT OPTUM RX PRESCRIPT ION RX May 28, 2022 [id number] OBDULIO,Weston ILLIAM PATIENT [facility] PLAN ALLEGRA Rincon May 28, 2017 [id number] Weston MAK PATIENT [facility] HEALTH PLAN USP May 28, 2017 [facility] [id number] Weston MAK PATIENT [facility] (WNR) TRICA RE(WN R) May 28, 2017 (WNR) [id number] Weston MAK PATIENT [facility] (WNR) HMO May 28, 2014 [id number] Weston MAK PATIENT Selected Encounter This section includes the information on record at [place] for the Encounter. Date/Time Encounter Type Encounter Description Reason Pro vider Source Jan 10, 2024 08:54 AM Outpatient Encounter TELEPHONE/ANCILLARY IHE Encounter Template Text not used by [place] Plan of Treatment: Future Appointments (+ 6 months) and Future Tests (+/- 45 days) The Plan of Treatment section includes future care activities for the patient from all [place] treatmentfacilities. This section includes future appointments and future orders which are active, pending or scheduled. Future Appointments This section includes appointments that were scheduled to occur 6 months from the date of the Encounter, up to a maximum of 20 appointments. The data comes from all [place] treatment facilities. Appointment Date/Time Appointment Type Appointme nt Facility Name Jan 11, 2024 09:00 AM [facility]ULATORY [facility] [place] [facility] Jan 14, 2024 11:00 AM AMBULATORY - [facility] MEDICIN [facility] [place] [facility] Feb 08, 2024 08:30 AM AM[facility]ULATORY [facility] MEDIC[facility] [place] [facility] Feb 26, 2024 08:30 AM AM[facility]ULATORY [facility] MEDIC[facility] [place] [facility] Mar 21, 2024 08:30 AM AM[facility]ULATORY [facility] MEDIC[facility] [place] [facility] Apr 22, 2024 08:30 AM AM[facility]ULATORY [facility] MEDIC[facility] [place] [facility] May 23, 2024 08:30 AM AMBULATORY - MEDICINE [facility] [place] [facility] Jun 05, 2024 10:00 AM AMBULATORY [facility] MEDIC[facility] [place] [facility] Jun 05, 2024 11:00 AM AMBULATORY - [facility] MEDIC[facility] [place] [facility] Lab Results: +/- 30 days of the encounter This section includes the Chemistry and Hematology Lab Results on record with [place] for the patient. Radiology Reports and Pathology Reports are provided separately, in subsequent sections. Lab Results This section contains the Chemistry/Hematology Results that were resulted 30 days before or 30 daysafter the date of the Encounter. Date/Time Source Result Type Result - Unit Interpretation Reference Range Comment Dec 14, 2023 12:27 PM [facility] METHADONE SCREEN Specimen Type: URINE Comment: DERECK test are qualitative, any L or H flags only indicate a [place] alert was sent. Ordering Provider: LACEY MCNAMARA Report Released Date/Time: Dec 14, 2023 11:59 AM Reporting Lab: [address] [address] Performing Lab: [facility] [address] [facility] [address] METHADONE SCREEN None detected(Nega tive) L Negative Dec 14, 2023 12:27 PM [facility] ALCOHOL, ETHYL URINE PANEL [...] Dec 14, 2023 11:59 AM Reporting Lab: [address] [address] Performing Lab: [address] [address] ALCOHOL, ETHYL URINE NONE-DETECTED mg/dL NONE-DETEC PENNY, cutoff = 10 mg/dL PH, DERECK 5.8 [pH] 4-10 CREATININE, DERECK 84.74 mg/dL >20 SP.GRAVITY, DERECK 1.011 1.00 3-1.02 0 Dec 14, 2023 12:27 PM [facility] AMPHETAMINES SCREEN PANEL Specimen [...] may have been adulterated. Ordering Provider: LACEY MCANMARA Report Released Date/Time: Dec 14, 2023 11:59 AM Reporting Lab: [address] [address] Performing Lab: [address] [address] AMPHETAMINES SCREEN NONE-DETECTED None-Detec penyn, Cutoff = 1000 ng/mL PH, DERECK 5.8 [pH] 4-10 CREATININE, DERECK 84.74 mg/dL >20 SP.GRAVITY, DERECK 1.011 1.00 3-1.02 0 Dec 14, 2023 12:27 PM [facility] FENTANYL SCREEN PANEL Specimen [...] Dec 14, 2023 11:59 AM Reporting Lab: [address] [address] Performing Lab: [address] [address] FENTANYL SCREEN NONE-DETECTE D ng/mL Negative: Cutoff = 1.00 ng/mL PH, DERECK 5.8 [pH] 4-10 CREATININE, DERECK 85.39 mg/dL >20 SP.GRAVITY, DERECK 1.011 1.00 3-1.02 0 Dec 14, 2023 12:27 PM [facility] BENZODIAZEPINES SCREEN PANEL Specimen [...] Dec 14, 2023 11:59 AM Reporting Lab: [address] [address] Performing Lab: [address] [address] BENZODIAZEPINES SCREEN NONE-DETECTED None-Detec penny, Cutoff = 200 ng/mL PH, DERECK 5.8 [pH] 4-10 CREATININE, DERECK 84.74 mg/dL >20 SP.GRAVITY, DERECK 1.011 1.00 3-1.02 0 Dec 14, 2023 12:27 PM [facility] BUPRENORPHINE SCREEN PANEL Specimen [...] Dec 14, 2023 11:59 AM Reporting Lab: [address] [address] Performing Lab: [address] [address] BUPRENORPHINE (URINE) NONE-DETECTED None Detected, Cutoff = 10.0 ng/mL PH, DERECK 5.8 [pH] 4-10 CREATININE, DERECK 84.74 mg/dL >20 SP.GRAVITY, DERECK 1.011 1.00 3-1.02 0 Dec 14, 2023 12:27 PM [facility] CANNABINOIDS SCREEN PANEL Specimen [...] Dec 14, 2023 11:59 AM Reporting Lab: [address] [address] Performing Lab: [address] [address] CANNABINOIDS SCREEN NONE-DETECTED None-Detec penny,Cutoff = 50 ng/mL PH, DERECK 5.8 [pH] 4-10 CREATININE, DERECK 84.74 mg/dL >20 SP.GRAVITY, DERECK 1.011 1.00 3-1.02 0 Dec 14, 2023 12:27 PM [facility] COCAINE SCREEN PANEL Specimen [...] Dec 14, 2023 11:59 AM Reporting Lab: [address] [address] Performing Lab: [address] [address] COCAINE SCREEN NONE-DETECTED N one-Detec penny,Cutoff = 300 ng/mL PH, DERECK 5.8 [pH] 4-10 CREATININE, DERECK 84.74 mg/dL >20 SP.GRAVITY, DERECK 1.011 1.00 3-1.02 0 Dec 14, 2023 12:27 PM [facility] OPIATES SCREEN PANEL Specimen [...] Dec 14, 2023 11:59 AM Reporting Lab: [address] [address] Performing Lab: [address] [address] OPIATES SCREEN NONE-DETECTED N one-Detec penny, Cutoff = 300 ng/mL PH, DERECK 5.8 [pH] 4-10 CREATININE, DERECK 84.74 mg/dL >20 SP.GRAVITY, DERECK 1.011 1.00 3-1.02 0 Dec 14, 2023 12:27 PM [facility] OXYCODONE SCREEN PANEL Specimen [...] Dec 14, 2023 11:59 AM Reporting Lab: [address] [address] Performing Lab: [address] [address] OXYCODONE SCREEN NONE-DETECTED None-Detec penny, Cutoff = [...] this document. The data comes from all [place] facilities. Date Advance Directives Provider Source Dec 02, 2020 ADVANCE DIRECTIVE ZAIRE COMER [facility] IE Encounter Notes: All associated encounter notes This section contains the clinical notes associated to the Encounter. Date/Time Encounter Note(s) Provider Source Jan 10, 2024 08:54 AM TELEPHONE ENCOUNTE R NOTE: LOCAL TITLE: TELEPHONE NOTE/SPECIALTY CLINIC STANDARD TITLE: TELEPHONE ENCOUNTER NOTE DATE OF NOTE: JAN 10, 2024@08:54 ENTRY DATE: JAN 10, 2024@08:54:03 AUTHOR: YESSI STONE COSIGNER: URGENCY: STATUS: COMPLETED Called and spoke with pt to remind them that they have a TELE appt with the Pain clinic on 01/11/2024 at 0900. 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
--- OUTSIDE RECORDS SUMMARY | 2024-05-20 08:43 | XMS_ITS | Encounter Summary ---
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 Role Phone KRISTOPHER MAXWELL Primary Care Provider [facility] Insurance Providers: All historical and current [...] PRESCRIPT ION RX730 1 May 28, 2017 [id number] [phone] OBDULIOWeston SNOWM PATIENT CAREMARK PRESCRIPT ION RX730 1 May 28, 2017 [id number] [phone] Weston MAKM PATIENT OPTUM RX PRESCRIPT ION RX May 28, 2022 [id number] [phone] OBDULIO,W ILLIAM PATIENT [facility] PLAN ALLEGRA Rincon May 28, 2017 [id number] Weston MAK PATIENT [facility] HEALTH PLAN [facility]FHP May 28, 2017 [facility] [id number] Weston MAK PATIENT [facility] (R) TRICA RE(WN R) May 28, 2017 (WNR) [id number] Weston MAK PATIENT [facility] (WNR) HMO May 28, 2014 [id number] Weston MAK PATIENT Selected Encounter This section includes the information on record at [place] for the Encounter. Date/Time Encounter Type Encounter Description Reason Pro vider Source Dec 13, 2023 11:43 AM Outpatient Encounter PAIN CLINIC IHE Encounter Template Text not used by [place] Plan of Treatment: Future Appointments (+ 6 months) and Future Tests (+/- 45 days) The Plan of Treatment section includes future care activities for the patient from all [place] treatmentfacilities. This section includes future appointments and future orders which are active, pending or scheduled. Future Appointments This section includes appointments that were scheduled to occur 6 months from the date of the Encounter, up to a maximum of 20 appointments. The data comes from all [place] treatment facilities. Appointment Date/Time Appointment Type Appointme nt Facility Name Dec 14, 2023 11:30 AM [facility]ORY [facility] [place] [facility] Dec 28, 2023 10:00 AM AMBULATORY [facility] MEDICINE [facility] [place] [facility] Jan 11, 2024 09:00 AM AMBULATORY - MEDICINE [facility] [place] [facility] Jan 14, 2024 11:00 AM AMBULATORY - REHAB MEDICIN E [facility] [place] [facility] Feb 08, 2024 08:30 AM AMBULATORY - MEDICINE [facility] [place] [facility] Feb 26, 2024 08:30 AM AMBULATORY - MEDICINE [facility] [place] [facility] Mar 21, 2024 08:30 AM AMBULATORY - MEDICINE [facility] [place] [facility] Apr 22, 2024 08:30 AM AMBULATORY - MEDICINE [facility] [place] [facility] May 23, 2024 08:30 AM AMBULATORY - MEDICINE [facility] [place] [facility] Jun 05, 2024 10:00 AM [facility] Jun 05, 2024 11:00 AM AMBULATORY - REHAB MEDICIN E [facility] Lab Results: +/- 30 days of the [...] Range Comment Dec 14, 2023 12:27 PM [facility] METHADONE SCREEN Specimen Type: URINE Comment: DERECK test are qualitative, any L or H flags only indicate a [facility] alert was sent. Ordering Provider: LACEY MCNAMARA Report Released Date/Time: Dec 14, 2023 11:59 AM Reporting Lab: [address] [address] Performing Lab: [facility] [address] [facility] [address] METHADONE SCREEN None detected(Nega tive) L Negative Dec 14, 2023 12:27 PM [facility] ALCOHOL, ETHYL URINE PANEL Specimen Type: [...] 14, 2023 11:59 AM Reporting Lab: [address] [address] Performing Lab: [address] [address] ALCOHOL, ETHYL URINE NONE-DETECTED mg/dL NONE-DETEC PENNY, cutoff = 10 mg/dL PH, DERECK 5.8 [pH] 4-10 CREATININE, DERECK 84.74 mg/dL >20 SP.GRAVITY, DERECK 1.011 1.00 3-1.02 0 Dec 14, 2023 12:27 PM [facility] AMPHETAMINES SCREEN PANEL Specimen Type: URINE Comment: [...] 14, 2023 11:59 AM Reporting Lab: [address] [address] Performing Lab: [address] [address] AMPHETAMINES SCREEN NONE-DETECTED None-Detec penny, Cutoff = 1000 ng/mL PH, DERECK 5.8 [pH] 4-10 CREATININE, DERECK 84.74 mg/dL >20 SP.GRAVITY, DERECK 1.011 1.00 3-1.02 0 Dec 14, 2023 12:27 PM [facility] FENTANYL SCREEN PANEL Specimen Type: URINE Comment: [...] 14, 2023 11:59 AM Reporting Lab: [address] [address] Performing Lab: [address] [address] FENTANYL SCREEN NONE-DETECTE D ng/mL Negative: Cutoff = 1.00 ng/mL PH, DERECK 5.8 [pH] 4-10 CREATININE, DERECK 85.39 mg/dL >20 SP.GRAVITY, DERECK 1.011 1.00 3-1.02 0 Dec 14, 2023 12:27 PM [facility] BUPRENORPHINE SCREEN PANEL Specimen Type: URINE Comment: [...] 14, 2023 11:59 AM Reporting Lab: [address] [address] Performing Lab: [address] [address] BUPRENORPHINE (URINE) NONE-DETECTED None Detected, Cutoff = 10.0 ng/mL PH, DERECK 5.8 [pH] 4-10 CREATININE, DERECK 84.74 mg/dL >20 SP.GRAVITY, DERECK 1.011 1.00 3-1.02 0 Dec 14, 2023 12:27 PM [facility] BENZODIAZEPINES SCREEN PANEL Specimen Type: URINE Comment: [...] 14, 2023 11:59 AM Reporting Lab: [address] [address] Performing Lab: [address] [address] BENZODIAZEPINES SCREEN NONE-DETECTED None-Detec penny, Cutoff = 200 ng/mL PH, DERECK 5.8 [pH] 4-10 CREATININE, DERECK 84.74 mg/dL >20 SP.GRAVITY, DERECK 1.011 1.00 3-1.02 0 Dec 14, 2023 12:27 PM [facility] CANNABINOIDS SCREEN PANEL Specimen Type: URINE Comment: [...] 14, 2023 11:59 AM Reporting Lab: [address] [address] Performing Lab: [place] [id number] CANNABINOIDS SCREEN NONE-DETECTED None-Detec penny,Cutoff = 50 ng/mL PH, DERECK 5.8 [pH] 4-10 CREATININE, DERECK 84.74 mg/dL >20 SP.GRAVITY, DERECK 1.011 1.00 3-1.02 0 Dec 14, 2023 12:27 PM [facility] COCAINE SCREEN PANEL Specimen Type: URINE Comment: [...] 14, 2023 11:59 AM Reporting Lab: [facility] [address] [address] Performing Lab: [address] [place] [address] COCAINE SCREEN NONE-DETECTED N one-Detec penny,Cutoff = 300 ng/mL PH, DERECK 5.8 [pH] 4-10 CREATININE, DERECK 84.74 mg/dL >20 SP.GRAVITY, DERECK 1.011 1.00 3-1.02 0 Dec 14, 2023 12:27 PM [facility] OPIATES SCREEN PANEL Specimen Type: URINE Comment: [...] 14, 2023 11:59 AM Reporting Lab: [address] [address] Performing Lab: [address] [address] OPIATES SCREEN NONE-DETECTED N one-Detec penny, Cutoff = 300 ng/mL PH, DERECK 5.8 [pH] 4-10 CREATININE, DERECK 84.74 mg/dL >20 SP.GRAVITY, DERECK 1.011 1.00 3-1.02 0 Dec 14, 2023 12:27 PM [facility] OXYCODONE SCREEN PANEL Specimen Type: URINE Comment: [...] 14, 2023 11:59 AM Reporting Lab: [address] [address] [facility] [address] [facility] [address] OXYCODONE SCREEN NONE-DETECTED None-Detec penny, Cutoff = 100 ng/mL PH, DERECK 5.8 [pH] 4-10 CREATININE, DERECK 84.74 mg/dL >20 SP.GRAVITY, DERECK 1.011 1.00 3-1.02 0 Advance Directives: All historical and current Section Date Range: From patient's date of to the date document was created. This section includes ALL of a patient's completed or amended [place] Advance and Rescinded Directives. The entries below indicate that a directive exists for the patient, but an actual copy is not included with this document. The data comes from all [place] facilities. Date Advance Directives Provider Source Dec 02, 2020 ADVANCE DIRECTIVE ZAIRE COMER [facility] IE Encounter Notes: All associated encounter notes This section contains the clinical notes associated to the Encounter. Date/Time Encounter Note(s) Provider Source Dec 13, 2023 11:43 AM TELEPHONE ENCOUNTE R NOTE: LOCAL TITLE: TELEPHONE NOTE/SPECIALTY CLINIC STANDARD TITLE: TELEPHONE ENCOUNTER NOTE DATE OF NOTE: DEC 13, 2023@11:43 ENTRY DATE: DEC 13, 2023@11:43:35 AUTHOR: YESSI STONE COSIGNER: URGENCY: STATUS: COMPLETED Called and spoke with pt to reminded them that they have a FTF appt with the Pain clinic on 12/14/2023 at 1130. Location was confirmed. 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
--- OUTSIDE RECORDS SUMMARY | 2024-05-20 08:43 | XMS_ITS | Encounter Summary ---
Author Name [facility] [facility] [place] [facility] [place] Address [address] [place] [address] Care Team Providers Care Library Director Name Role Phone KRISTOPHER MAXWELL Primary [facility] Insurance Providers: All historical and current [...] PRESCRIPT ION [id number] 1 May 28, 2017 [id number] [place] MAK PATIENT CAREMARK PRESCRIPT ION [id number] 1 May 28, 2017 [id number] OBDULIO,Weston MANSOORM PATIENT OPTUM RX PRESCRIPT ION RX May 28, 2022 [id number] OBDULIO,W ILLIAM PATIENT [facility] PLAN ALLEGRA Rincon May 28, 2017 [id number] [phone] OBDULIO,W ILLIAM PATIENT [facility] PL[facility] USP May 28, 2017 [facility] [id number] OBDULIO,W ILLIAM PATIENT [facility] (WNR) TRICA RE(WN R) May 28, 2017 (WNR) [id number] OBDULIO,W ILLIAM [facility]) HMO May 28, 2014 [id number] [id number] OBDULIO,W ILLIAM PATIENT Selected Encounter This section includes the information on record at [place] for the Encounter. Date/Time Encounter Type Encounter Description Reason Provider Source Dec 14, 2023 11:30 AM MTMS BY TRAY MONET 15 MIN PAIN CLINIC ICD-10-CM M54.50 Low back pain, unspecified HEMAL MCNAMARA E Encounter Template Text not used by [place] Assessments - Encounter Diagnoses This section includes the primary and secondary diagnoses documented for the Encounter. Date/Time Primary/Secondary Diagnosis Diagnosis Name Provider Source Dec 14, 2023 01:33 PM PRIMARY Low back pain, unspecified HEMAL MCNAMARA [facility] [place] [facility] Plan of Treatment: Future Appointments [...] 28, 2023 10:00 AM AMBULATORY - MEDICINE [place] [facility] [place] [place] [facility] Jan 11, 2024 09:00 AM AMBULATORY - MEDICINE [place] [facility] [place] [facility] Jan 14, 2024 11:00 AM AMBULATORY - [facility] [facility]ICIN [place] [facility] [place] [facility] Feb 08, 2024 08:30 AM AMBULATORY - MEDICINE [place] [facility] [facility] Feb 26, 2024 08:30 AM AMBULATORY - MEDICINE [place] [facility] [place] [facility] Mar 21, 2024 08:30 AM AMBULATORY - MEDICINE [place] [facility] Apr 22, 2024 08:30 AM AMBULATORY - MEDICINE [place] [facility] [facility] May 23, 2024 08:30 AM [facility] [place] [facility] Jun 05, 2024 10:00 AM AMBULATORY - MEDICINE [facility] Jun 05, 2024 11:00 AM AMBULAT[facility] Lab Results: +/- 30 days of the encounter This section includes the Chemistry and Hematology Lab Results on record with [place] for the patient. Radiology Reports and Pathology Reports are provided separately, in subsequent sections. Lab Results This section contains the Chemistry/Hematology Results that were resulted 30 days before or 30 daysafter the date of the Encounter. Date/Time Source Result Type Result - Unit Interpretation Reference Range Comment Dec 14, 2023 12:27 PM [facility] METHADONE SCREEN Specimen Type: URINE Comment: DERECK test are qualitative, any L or H flags only indicate a [place] alert was sent. Ordering Provider: LACEY MCNAMARA Report Released Date/Time: Dec 14, 2023 11:59 AM Reporting Lab: [facility] [address] [address] Performing Lab: [facility] [address] [address] METHADONE SCREEN None detected(Nega tive) L Negative Dec 14, 2023 12:27 PM [facility] ALCOHOL, ETHYL URINE PANEL Specimen [...] 14, 2023 11:59 AM Reporting Lab: [facility] [address] [address] Performing Lab: [address] [address] ALCOHOL, ETHYL URINE NONE-DETECTED mg/dL NONE-DETEC PENNY, cutoff = 10 mg/dL PH, DERECK 5.8 [pH] 4-10 CREATININE, DERECK 84.74 mg/dL >20 SP.GRAVITY, DERECK 1.011 1.00 3-1.02 0 Dec 14, 2023 12:27 PM [facility] AMPHETAMINES SCREEN PANEL Specimen Type: [...] Dec 14, 2023 11:59 AM Reporting Lab: [address] [address] Performing Lab: [address] [address] AMPHETAMINES SCREEN NONE-DETECTED None-Detec penny, Cutoff = 1000 ng/mL PH, DERECK 5.8 [pH] 4-10 CREATININE, DERECK 84.74 mg/dL >20 SP.GRAVITY, DERECK 1.011 1.00 3-1.02 0 Dec 14, 2023 12:27 PM [facility] FENTANYL SCREEN PANEL Specimen Type: [...] Dec 14, 2023 11:59 AM Reporting Lab: [address] [address] Performing Lab: [address] [address] FENTANYL SCREEN NONE-DETECTE D ng/mL Negative: Cutoff = 1.00 ng/mL PH, DERECK 5.8 [pH] 4-10 CREATININE, DERECK 85.39 mg/dL >20 SP.GRAVITY, DERECK 1.011 1.00 3-1.02 0 Dec 14, 2023 12:27 PM [facility] BUPRENORPHINE SCREEN PANEL Specimen Type: [...] Dec 14, 2023 11:59 AM Reporting Lab: [address] [address] Performing Lab: [address] [address] BUPRENORPHINE (URINE) NONE-DETECTED None Detected, Cutoff = 10.0 ng/mL PH, DERECK 5.8 [pH] 4-10 CREATININE, DERECK 84.74 mg/dL >20 SP.GRAVITY, DERECK 1.011 1.00 3-1.02 0 Dec 14, 2023 12:27 PM [facility] BENZODIAZEPINES SCREEN PANEL Specimen Type: [...] Dec 14, 2023 11:59 AM Reporting Lab: [address] [address] Performing Lab: [address] [address] BENZODIAZEPINES SCREEN NONE-DETECTED None-Detec penny, Cutoff = 200 ng/mL PH, DERECK 5.8 [pH] 4-10 CREATININE, DERECK 84.74 mg/dL >20 SP.GRAVITY, DERECK 1.011 1.00 3-1.02 0 Dec 14, 2023 12:27 PM [facility] CANNABINOIDS SCREEN PANEL Specimen Type: URINE Comment: [...] Dec 14, 2023 11:59 AM Reporting Lab: [address] [address] Performing Lab: [address] [address] CANNABINOIDS SCREEN NONE-DETECTED None-Detec penny,Cutoff = 50 ng/mL PH, DERECK 5.8 [pH] 4-10 CREATININE, DERECK 84.74 mg/dL >20 SP.GRAVITY, DERECK 1.011 1.00 3-1.02 0 Dec 14, 2023 12:27 PM [facility] COCAINE SCREEN PANEL Specimen Type: [...] Dec 14, 2023 11:59 AM Reporting Lab: [address] [address] Performing Lab: [address] [address] COCAINE SCREEN NONE-DETECTED N one-Detec penny,Cutoff = 300 ng/mL PH, DERECK 5.8 [pH] 4-10 CREATININE, DERECK 84.74 mg/dL >20 SP.GRAVITY, DERECK 1.011 1.00 3-1.02 0 Dec 14, 2023 12:27 PM [facility] OPIATES SCREEN PANEL Specimen Type: [...] Dec 14, 2023 11:59 AM Reporting Lab: [address] [address] Performing Lab: [address] [address] OPIATES SCREEN NONE-DETECTED N one-Detec penny, Cutoff = 300 ng/mL PH, DERECK 5.8 [pH] 4-10 CREATININE, DERECK 84.74 mg/dL >20 SP.GRAVITY, DERECK 1.011 1.00 3-1.02 0 Dec 14, 2023 12:27 PM [facility] OXYCODONE SCREEN PANEL Specimen Type: [...] 2023 11:59 AM Reporting Lab: [facility] [address] [address] Performing Lab: [facility] [address] [address] OXYCODONE SCREEN NONE-DETECTED None-Detec penny, Cutoff = [...] 02, 2020 ADVANCE DIRECTIVE ANANDA COMERCY [facility] Encounter Notes: All associated encounter notes This section contains the clinical notes associated to the Encounter. Date/Time Encounter Note(s) Provider Source Dec 14, 2023 01:36 PM PAIN MEDICATION MG T NOTE: LOCAL TITLE: OPIOID/CONTROLLED SUBSTANCE NOTE STANDARD TITLE: PAIN MEDICATION MGT NOTE DATE OF NOTE: DEC 14, 2023@13:36 ENTRY DATE: DEC 14, 2023@13:36:46 AUTHOR: HEMAL MCNAMARA EXP COSIGNER: URGENCY: STATUS: COMPLETED OPIOID/CONTROLLED SUBSTANCE NOTE Initial Opioid Prescription Indication for therapy: Opioid trial for chronic pain Risk of Opioid therapy was assessed using: STORM database Chart Review Risk Assessment: - Using the STORM tool and your own clinical judgment, please select your risk assessment. Low risk Prescription Drug Monitoring Program (PDMP): A PDMP note is required at every new prescription for a controlled substance. PDMP HISTORY 1 YEAR Info Disclosed: Patient Demographics Purpose: Accessing Prescription Drug Monitoring Program (PDMP) databases for review of controlled substances prescribed outside of the [place], and any additional information that may become available, as an important component of standard clinical care and in accordance with [facility] policy. 08/21/23 15:12 Ihsan Moses MD PDMP [place] 08/24/23 11:51 Hemal Mcnamara S PDMP [place] 08/31/23 09:10 Lacey Mcnamaray S PDMP [place] 09/07/23 10:08 Lacey Mcnamaray S PDMP [place] 09/14/23 10:16 Lacey Mcnamaray S PDMP [place] 09/28/23 09:12 Lacey Mcnamaray S PDMP [place] 10/19/23 08:55 Lacey Mcnamaray S PDMP [place] 11/13/23 11:01 Lacey Mcnamaray S PDMP [place] 12/04/23 14:47 Lacey Mcnamaray S PDMP [place] 12/14/23 10:48 Lacey Mcnamaray S PDMP [place] Urine Drug Screen: A urine drug screen is required prior to reaching 90 days of opioid therapy and at least annually thereafter. Collection DT Specimen Test Name Result Units Ref Range 12/14/2023 12:27 URINE !! OPIATES SCREEN NONE-DETECTED Ref: None-Detected, Cutoff = 300 ng/mL 12/14/2023 12:27 URINE !! OXYCODONE SCREEN NONE-DETECTED Ref: None-Detected, Cutoff = 100 ng/mL 12/14/2023 12:27 URINE !! BenzoSc NONE-DETECTED Ref: None-Detected, Cutoff = 200 ng/mL 12/14/2023 12:27 URINE !! COCAINE SCREEN NONE-DETECTED Ref: None-Detected,Cutoff = 300 ng/mL 12/14/2023 12:27 URINE !! CANNABINOIDS SCRENONE-DETECTED Ref: None-Detected,Cutoff = 50 ng/mL 12/14/2023 12:27 URINE !! ALCOHOL, ETHYL URNONE-DETECTED mg/dL Ref: NONE-DETECTED, cutoff = 10 mg/dL 12/14/2023 12:27 URINE !! AMPHETAMINES SCRENONE-DETECTED Ref: None-Detected, Cutoff = 1000 ng/mL 12/14/2023 12:27 URINE !! BupreUr NONE-DETECTED Ref: None Detected, Cutoff = 10.0 ng/mL !! Indicates COMMENTS AVAILABLE...Refer to Interim Lab Report. Most Recent Naloxone Prescription Information: No prior Naloxone prescription was found. - Completed today /tisha MCNAMARA CLINICAL PHARMACIST PRACTITIONER, PAIN Signed: 12/14/2023 13:38 HEMAL MCNAMARA [facility] Dec 14, 2023 12:09 PM MEDICATION MGT NOT E: LOCAL TITLE: OVERDOSE EDUCATION AND NALOXONE STANDARD TITLE: MEDICATION MGT NOTE DATE OF NOTE: DEC 14, 2023@12:09 ENTRY DATE: DEC 14, 2023@12:10:03 AUTHOR: HEMAL MCNAMARA EXP COSIGNER: URGENCY: STATUS: COMPLETED Opioid Overdose Education and Naloxone Distribution (OEND) Patient has an indication for OEND due to following: Opioid prescription Education provided This section supports standardized OEND. Because patient has risk factors for overdose, a naloxone prescription is recommended. Naloxone prescribing should include critical education on opioid overdose prevention, recognition, and response. Education provided to: Patient The following resources were shared: Used teach back to ensure information provided was clearly understood. Naloxone An order was placed for naloxone. /tisha MCNAMARA CLINICAL PHARMACIST PRACTITIONER, PAIN Signed: 12/14/2023 13:38 HEMAL MCNAMARA [facility] Dec 14, 2023 10:50 AM ACCOUNTING OF DISC LOSURES NOTE: LOCAL TITLE: STATE PRESCRIPTION DRUG MONITORING PROGRAM STANDARD TITLE: ACCOUNTING OF DISCLOSURES NOTE DATE OF NOTE: DEC 14, 2023@10:50:36 ENTRY DATE: DEC 14, 2023@10:50:36 AUTHOR: HEMAL MCNAMARA EXP COSIGNER: URGENCY: STATUS: COMPLETED This PDMP query was submitted by Hemal Mcnamara. The clinical justification for this PDMP query is to review controlled substances prescribed outside of the [facility], and any additional information that may become available, as an important component of standard clinical care, and in accordance with [facility] policy. Patient information was shared with the PDMP [place]. Prescription(s) filled outside the [facility] in the last 90 days are noted. However, they do not raise significant safety concerns and do not influence the treatment plan at this time. Fill Date ID Written Drug Qty Days Prescriber Rx # Pharmacy Refill Daily Dose * Pymt Type AURICULAR THERAPIST 12/04/2023 4 12/04/2023 Pregabalin 225 Mg Capsule 60.00 30 [facility] Zana [id number] [facility] [place] [facility] 10/25/2023 2 10/25/2023 Tramadol Hcl 50 Mg Tablet 15.00 3 Pe Sha [id number] [facility] 0/0 50.00 [facility] [place] 10/24/2023 4 10/19/2023 Pregabalin 225 Mg Capsule 60.00 30 Be Zana [id number] [facility] [place]04[place] 10/13/2023 2 10/13/2023 Oxycodone Hcl (Ir) 5 Mg Tablet 5.00 2 Rm Art [id number] [facility] (1604[facility] 0/0 18.75 [facility] [place] 10/01/2023 4 09/28/2023 Pregabalin 225 Mg Capsule 60.00 30 Be Zana [id number] [facility] ([facility]04[place] 09/14/2023 3 09/14/2023 Pregabalin 200 Mg Capsule 28.00 14 Be Zana [id number] [facility]04[facility] [place] 09/07/2023 3 09/07/2023 Pregabalin 100 Mg Capsule 42.00 14 Be Zana [id number] [facility]04[place] 08/31/2023 3 08/31/2023 Pregabalin 75 Mg Capsule 42.00 14 Be Zana [id number] [facility] ([facility]04[place] 08/24/2023 3 08/24/2023 Pregabalin 100 Mg Capsule 28.00 14 Be Zana [id number] [facility] ([facility]04[place] 07/26/2023 2 07/26/2023 Oxycodone-Acetaminophen 5-325 40.00 5 Da Kaylen [id number] [facility] (9935) 0/0 60.00 [facility] [place] 07/13/2023 2 07/13/2023 Oxycodone-Acetaminophen 5-325 40.00 3 Da Kaylen [id number] [facility] (9935) 0/0 100.00 [facility] [place] 06/13/2023 2 06/12/2023 Gabapentin 600 Mg Tablet 270.00 90 [place] [id number] [facility] (8260) 0/0 [place] 03/08/2023 1 03/06/2023 Gabapentin 600 Mg Tablet 270.00 90 [place] [id number] [facility] (8260) 0/0 [place] [facility] [place] 11/01/2022 1 07/12/2022 Gabapentin 600 Mg Tablet 270.00 90 An Sha [id number] [facility] (8272) 1/ [facility] [place] 07/25/2022 2 07/12/2022 Gabapentin 600 Mg Tablet 270.00 90 An Sha [id number] [facility] (8272) 0/ [place] 05/04/2022 2 05/01/2022 Gabapentin 600 Mg Tablet 270.00 90 [place] [id number] [facility] (8272) 0/0 [place] 02/06/2022 1 02/02/2022 Gabapentin 600 Mg Tablet 270.00 90 [place] [id number] [facility] (8272) 0/0 [place] // HEMAL MCNAMARA CLINICAL PHARMACIST PRACTITIONER, PAIN Signed: 12/14/2023 13:38 HEMAL MCNAMARA [place] [facility] [place] [facility] Dec 14, 2023 10:47 AM [facility]: LOCAL TITLE: PAIN CLINIC NOTE STANDARD TITLE: PAIN MEDICINE OUTPATIENT NOTE DATE OF NOTE: DEC 14, 2023@10:47 ENTRY DATE: DEC 14, 2023@10:47:41 AUTHOR: HEMAL MCNAMARA EXP COSIGNER: URGENCY: STATUS: COMPLETED TEODORA Da Silva is 68 year old WHITE MALE with a history of chronic low back pain, who presents to pharmacy pain management clinic today for routine follow-up appointment. Berta was last seen in clinic on 11/13/23; no changes made at that appointment. SUBJECTIVE/OBJECTIVE: TEODORA Da Silva presents to clinic today in no apparent distress. Berta's wrist/hand casts are now off. Does continue to use stabilization tape on last two fingers of left hand. Unsure if any other surgical procedures will be warranted until he follows up with Non-VA Ortho provider. 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 He plans on working on growing membership and engagement during his term and running for 1st Vice Commander next year. In regard to Pain, Berta reports pregabalin works for a while . He notes pain is worsened in the afternoon and he notices he becomes more bent in guarding from the pain. He was able complete the [place] [employer] route through with his fellow [employer] members. -- PAIN SCREENING: PEG PAIN SCREENING TOOL [...] performed. #1. Non-VA Acetaminophen 325mg #2. Pregabalin 225mg BID (last filled: 12/04/23 for 30-days) - confirms taking as prescribed #3. Non-VA Tramadol 50mg (filled 10/25/23 for #15 tabs) - Previous prescription after hand fracture; no longer using EVALUATION OF SOCIAL HISTORY: ---- TOBACCO USE: Denied. Quit ~30 yrs ago ALCOHOL USE: Socially when at [employer]; 1-2 beers, 1-2x per week CANNABIS USE: Denied. OTHER ILLICIT SUBSTANCES: Denied. RISK MITIGATION: LONG-TERM CONSENT: Not previously completed. NALOXONE: No prior dispensing. UDS MONITORING: Not previously completed. PDMP: Completed today as part of appointment [...] FOR PAIN Inactive Outpatient Medications Status 1) PREGABALIN 225MG ORAL CAP TAKE ONE CAPSULE BY MOUTH TWICE DAILY FOR PAIN Active Non-VA Medications Status 1) Non-VA ACETAMINOPHEN 325MG TAB 1300MG BY MOUTH THREE ACTIVE TIMES DAILY NEEDED 2) Non-VA ALFUZOSIN HCL 10MG SA TAB 10MG BY MOUTH DAILY ACTIVE 3) Non-VA TADALAFIL 5MG TAB 5MG BY MOUTH DAILY ACTIVE 7 Total Medications * Active problems - Computerized Problem List is the source for the followin. Hyperlipidemia ([facility] [id number]) 2. Impaired Fasting Glucose ([facility] [id number]) 3. Erectile Dysfunction ([facility] [id number]) 4. Tinnitus 5. Hearing loss 6. Exposure to Potentially Hazardous Substance ([facility] [id number]) 7. Syncope and collapse 8. Low back [...] ASSESSMENT: Mr. Mak is a 68-year-old male [place] with a history of chronic low back pain s/p multiple surgeries to cervical and lumbar spine. also followed by Non-VA providers for chronic pain related interventions. A significant portion of today's appointment was spent reviewing previous discussion on buprenorphine (see 11/13/23 Pain Clinic note). [place] reports he had time to think about buprenorphine and would like to trial use to potential help with some of the nociceptive pain components. Counseling providing on the proper application, rotation, and disposal of Butrans patches. As is currently opioid naive will start at Butrans 5mcg/hr Q7days. The long-term consent for opioid therapy was reviewed and completed with today. Discussed potential risks vs. benefits of therapy and expectations for monitoring. agreed to complete UDS today which returned salgado negative as expected. Provided education on naloxone and s/sx of OIRD and efficacy of naloxone in reversal of buprenorphine only overdose. While initially declined prescribing he later asked for a prescription to be mailed. Point of Care note for initial opioid prescribing completed. No other changes made at appointment today. PDMP queried; results returned as expected. Prescription for Butrans will be mailed locally from facility per 's request. Will renew pregabalin prescription. A shared decision-making approach was used in the development of this plan, involving the [place] and clinician caregivers present. The was provided the opportunity express questions or concerns, and the plan was adjusted as needed to address these concerns. verbalized understanding of the plan, including possible known risks and benefits, and had no additional questions. PLAN: 1. Start Butrans 5mcg/hr Q7days - Counseling on appropriate application, rotation, and disposal provider - Prescription entered for mail delivery per request 2. Continue Pregabalin 225mg BID - Will renew today 3. PDMP queried; results returned as expected 4. Baseline Risk Mitigation Completed: - Long-Term Consent for Opioid Therapy reviewed and completed - Education on naloxone kit and s/sx of OIRD provided to today. Prescription entered for mail delivery - Baseline UDS completed today; results as expected - Point of Care Data-Based Risk Review for initial opioid prescription completed F/U via telephone on 12/27; Pt instructed to contact clinic with any questions or concerns prior to next encounter. - Encounter Time: 30 minutes /jac/ HEMAL MCNAMARA CLINICAL PHARMACIST PRACTITIONER, PAIN Signed: 12/14/2023 14:37 HEMAL MCNAMARA [place] [facility]
--- OUTSIDE RECORDS SUMMARY | 2024-05-20 08:43 | XMS_ITS | Encounter Summary ---
Author Name [place] Address [address] [place] [address] Care Team Providers Care Quality Control Auditor Name Role Phone KRISTOPHER MAXWELL Primary Care Provider [facility] Insurance Providers: All historical and [...] PRESCRIPT ION RX730 1 May 28, 2017 [id number] OBDULI[place]eston SNOWM PATIENT CAREMARK PRESCRIPT ION RX730 1 May 28, 2017 [id number] Weston MAKM PATIENT OPTUM RX PRESCRIPT ION RX May 28, 2022 THPRX [id number] [phone] OBDULIO,W ILLIAM PATIENT [facility] PLAN ALLEGRA Rincon May 28, 2017 [id number] Weston MAK PATIENT [facility] USP May 28, 2017 [facility] [id number] Weston MAK PATIENT [facility] (R) TRICA RE(WN R) May 28, 2017 (WNR) [id number] Weston MAK PATIENT [facility] (WNR) HMO May 28, 2014 [id number] Weston MAK PATIENT Selected Encounter This section includes the information on record at [place] for the Encounter. Date/Time Encounter Type Encounter Description Reason Pro vider Source Dec 04, 2023 02:11 PM Outpatient Encounter PAIN CLINIC IHE Encounter Template Text not used by [place] Plan of Treatment: Future Appointments (+ 6 months) and Future Tests (+/- 45 days) The Plan of Treatment section includes future care activities for the patient from all [place] treatmentfacilities. This section includes future appointments and future orders which are active, pending or scheduled. Future Appointments This section includes appointments that were scheduled to occur 6 months from the date of the Encounter, up to a maximum of 20 appointments. The data comes from all [place] treatment facilities. Appointment Date/Time Appointment Type Appointme nt Facility Name Dec 14, 2023 11:30 AM [facility] [place] [facility] Dec 28, 2023 10:00 AM [facility] [place] [facility] Jan 11, 2024 09:00 AM [facility]UL[facility]ORY [facility]IC[facility] [place] [facility] Jan 14, 2024 11:00 AM AMBULATORY - [facility] MEDICIN [facility] [place] [facility] Feb 08, 2024 08:30 AM [facility]ORY [facility]IC[facility] [place] [facility] Feb 26, 2024 08:30 AM [facility] [place] [facility] Mar 21, 2024 08:30 AM [facility]ORY [facility] [place] [facility] Apr 22, 2024 08:30 AM [facility]ORY [facility] [place] [facility] May 23, 2024 08:30 AM [facility]ORY [facility]IC[facility] [place] [facility] Jun 05, 2024 10:00 [facility], [facility]24 11:00 AM AMBULATORY - REHAB MEDICIN E [facility] Lab Results: +/- 30 days of [...] Range Comment Dec 14, 2023 12:27 PM [facility] METHADONE SCREEN Specimen Type: URINE Comment: DERECK test are qualitative, any L or H flags only indicate a VA alert was sent. Ordering Provider: LACEY MCNAMARA Report Released Date/Time: Dec 14, 2023 11:59 AM Reporting Lab: [address] [address] Performing Lab: [facility] [address] [address] METHADONE SCREEN None detected(Nega tive) L Negative Dec 14, 2023 12:27 PM [facility] ALCOHOL, ETHYL URINE PANEL Specimen Type: [...] Dec 14, 2023 11:59 AM Reporting Lab: [address] [address] Performing Lab: [address] [address] ALCOHOL, ETHYL URINE NONE-DETECTED mg/dL NONE-DETEC PENNY, cutoff = 10 mg/dL PH, DERECK 5.8 [pH] 4-10 CREATININE, DERECK 84.74 mg/dL >20 SP.GRAVITY, DERECK 1.011 1.00 3-1.02 0 Dec 14, 2023 12:27 PM [facility] AMPHETAMINES SCREEN PANEL Specimen Type: URINE [...] Dec 14, 2023 11:59 AM Reporting Lab: [address] [address] Performing Lab: [address] [address] AMPHETAMINES SCREEN NONE-DETECTED None-Detec penny, Cutoff = 1000 ng/mL PH, DERECK 5.8 [pH] 4-10 CREATININE, DERECK 84.74 mg/dL >20 SP.GRAVITY, DERCEK 1.011 1.00 3-1.02 0 Dec 14, 2023 12:27 PM [facility] FENTANYL SCREEN PANEL Specimen Type: URINE [...] Dec 14, 2023 11:59 AM Reporting Lab: [address] [address] Performing Lab: [address] [address] FENTANYL SCREEN NONE-DETECTE D ng/mL Negative: Cutoff = 1.00 ng/mL PH, DERECK 5.8 [pH] 4-10 CREATININE, DERECK 85.39 mg/dL >20 SP.GRAVITY, DERECK 1.011 1.00 3-1.02 0 Dec 14, 2023 12:27 PM [facility] BENZODIAZEPINES SCREEN PANEL Specimen Type: URINE [...] Dec 14, 2023 11:59 AM Reporting Lab: [address] [address] Performing Lab: [address] [address] BENZODIAZEPINES SCREEN NONE-DETECTED None-Detec penny, Cutoff = 200 ng/mL PH, DERECK 5.8 [pH] 4-10 CREATININE, DERECK 84.74 mg/dL >20 SP.GRAVITY, DERECK 1.011 1.00 3-1.02 0 Dec 14, 2023 12:27 PM [facility] BUPRENORPHINE SCREEN PANEL Specimen Type: URINE [...] Dec 14, 2023 11:59 AM Reporting Lab: [address] [address] Performing Lab: [address] [address] BUPRENORPHINE (URINE) NONE-DETECTED None Detected, Cutoff = 10.0 ng/mL PH, DERECK 5.8 [pH] 4-10 CREATININE, DERECK 84.74 mg/dL >20 SP.GRAVITY, DERECK 1.011 1.00 3-1.02 0 Dec 14, 2023 12:27 PM [facility] CANNABINOIDS SCREEN PANEL Specimen Type: URINE [...] Dec 14, 2023 11:59 AM Reporting Lab: [address] [address] Performing Lab: [address] [address] CANNABINOIDS SCREEN NONE-DETECTED None-Detec penny,Cutoff = 50 ng/mL PH, DERECK 5.8 [pH] 4-10 CREATININE, DERECK 84.74 mg/dL >20 SP.GRAVITY, DERECK 1.011 1.00 3-1.02 0 Dec 14, 2023 12:27 PM [facility] COCAINE SCREEN PANEL Specimen Type: URINE [...] Dec 14, 2023 11:59 AM Reporting Lab: [address] [address] Performing Lab: [address] [place] [address] COCAINE SCREEN NONE-DETECTED N one-Detec penny,Cutoff = 300 ng/mL PH, DERECK 5.8 [pH] 4-10 CREATININE, DERECK 84.74 mg/dL >20 SP.GRAVITY, DERECK 1.011 1.00 3-1.02 0 Dec 14, 2023 12:27 PM [facility] OPIATES SCREEN PANEL Specimen Type: URINE [...] Dec 14, 2023 11:59 AM Reporting Lab: [address] [address] Performing Lab: [address] [address] OPIATES SCREEN NONE-DETECTED N one-Detec penny, Cutoff = 300 ng/mL PH, DERECK 5.8 [pH] 4-10 CREATININE, DERECK 84.74 mg/dL >20 SP.GRAVITY, DEREKC 1.011 1.00 3-1.02 0 Dec 14, 2023 12:27 PM [facility] OXYCODONE SCREEN PANEL Specimen Type: URINE [...] Dec 14, 2023 11:59 AM Reporting Lab: [address] [address] Performing [facility]: [facility] [place] [facility] [address] [facility] [address] OXYCODONE SCREEN NONE-DETECTED None-Detec penny, Cutoff = 100 ng/mL PH, DERECK 5.8 [pH] 4-10 CREATININE, DERECK 84.74 mg/dL >20 SP.GRAVITY, DERECK 1.011 1.00 3-1.02 0 Advance Directives: All historical and current Section Date Range: From patient's date of to the date document was created. This section includes ALL of a patient's completed or amended [place] Advance and Rescinded Directives. The entries below indicate that a directive exists for the patient, but an actual copy is not included with this document. The data comes from all [place] facilities. Date Advance Directives Provider Source Dec 02, 2020 ADVANCE DIRECTIVE ZAIRE COMER [facility] IE Encounter Notes: All associated encounter notes This section contains the clinical notes associated to the Encounter. Date/Time Encounter Note(s) Provider Source Dec 04, 2023 02:11 PM TELEPHONE ENCOUNTER NOTE: LOCAL TITLE: TELEPHONE NOTE/SPECIALTY CLINIC STANDARD TITLE: TELEPHONE ENCOUNTER NOTE DATE OF NOTE: DEC 04, 2023@14:11 ENTRY DATE: DEC 04, 2023@14:12:02 AUTHOR: YESSI STONE COSIGNER: URGENCY: STATUS: COMPLETED TELEPHONE NOTE/SPECIALTY CLINIC Has ADDENDA Vet lvm requesting cb from provider as soon as possible. Phone number on file confirmed. /tisha STONE ADVANCED CHIMNEY SWEEPER Signed: 12/04/2023 14:12 Receipt Acknowledged By: 12/04/2023 14:45 /jac/ HEMAL MCNAMARA CLINICAL PHARMACIST PRACTITIONER, PAIN 12/04/2023 ADDENDUM STATUS: COMPLETED Returned call to [place]. Requesting renewal of pregabalin to be sent overnight mail as appointment for 11/29 had to be rescheduled. Also confirmed date/time of next appointment on 12/13. /jac/ HEMAL MCNAMARA CLINICAL PHARMACIST PRACTITIONER, PAIN Signed: 12/04/2023 14:47 YESSI STONE [facility]
--- OUTSIDE RECORDS SUMMARY | 2024-05-20 08:43 | XMS_ITS ---
Author Name [facility] [place] Address [address] [place] [address] Care Team Providers Care Quartz Cutter Name Role Phone KRISTOPHER MAXWELL Primary Care Provider [facility] Insurance Providers: All historical and [...] PRESCRIPT ION RX730 1 May 28, 2017 [id number] OBDULIOWeston SNOWIAM PATIENT CAREMARK PRESCRIPT ION RX730 1 May 28, 2017 [id number] [phone] Weston MAK ILLTAINAM PATIENT OPTUM RX PRESCRIPT ION RX May 28, 2022 THPRX [id number] OBDULIO,Weston ILLIAM PATIENT [facility] PLAN ALLEGRA [place] May 28, 2017 [id number] Weston MAK PATIENT [facility] USP May 28, 2017 [email or web address] [id number] Weston MAKIAM PATIENT [facility] (WNR) TRICA RE(WN R) May 28, 2017 (WNR) [id number] [phone] Weston MAK PATIENT [facility] (WNR) HMO May 28, 2014 [id number] Weston MAK PATIENT Selected Encounter This section includes the information on record at [place] for the Encounter. Date/Time Encounter Type Encounter Description Reason Pro vider Source Dec 14, 2023 11:57 AM Outpatient Encounter EVENT (HISTORICAL) IHE Encounter Template Text not used by [place] Plan of Treatment: Future Appointments (+ 6 months) and Future Tests (+/- 45 days) The Plan of Treatment section includes future care activities for the patient from all [place] treatmentfacilities. This section includes future appointments and future orders which are active, pending or scheduled. Future Appointments This section includes appointments that were scheduled to occur 6 months from the date of the Encounter, up to a maximum of 20 appointments. The data comes from all [place] treatment facilities. Appointment Date/Time Appointment Type Appointme nt Facility Name Dec 28, 2023 10:00 AM AMBULATORY - MEDICINE [facility] [place] [facility] Jan 11, 2024 09:00 AM AMBULATORY - MEDICINE [facility] [place] [facility] Jan 14, 2024 11:00 AM AMBULATORY - REHAB MEDICIN E [facility] [place] [facility] Feb 08, 2024 08:30 AM AMBULATORY - MEDICINE [facility] [place] [facility] Feb 26, 2024 08:30 AM AMBULATORY - MEDICINE [facility] [place] [facility] Mar 21, 2024 08:30 AM AMBULATORY - MEDICINE [facility] [place] [facility] Apr 22, 2024 08:30 AM AMBULATORY - MEDICINE [facility] [place] [facility] May 23, 2024 08:30 AM AMBULATORY - MEDICINE [facility] [place] [facility] Jun 05, 2024 10:00 AM [facility] [place] [facility] Jun 05, 2024 11:00 AM AMBULATORY - REHAB MEDICIN E [facility] Lab Results: +/- 30 days of the encounter This section includes the Chemistry and Hematology Lab Results on record with [place] for the patient. Radiology Reports and Pathology Reports are provided separately, in subsequent sections. Lab Results This section contains the Chemistry/Hematology Results that were resulted 30 days before or 30 daysafter the date of the Encounter. Date/Time Source Result Type Result - Unit Interpretation Reference Range Comment Dec 14, 2023 12:27 PM [facility] METHADONE SCREEN Specimen Type: URINE Comment: DERECK test are qualitative, any L or H flags only indicate a [place] alert was sent. Ordering Provider: LACEY MCNAMARA Report Released Date/Time: Dec 14, 2023 11:59 AM Reporting Lab: [address] [address] Performing Lab: [facility] [address] [address] METHADONE SCREEN None detected(Nega tive) L Negative Dec 14, 2023 12:27 PM [facility] ALCOHOL, ETHYL URINE PANEL Specimen Type: [...] Dec 14, 2023 11:59 AM Reporting Lab: [address] [address] Performing Lab: [address] [address] ALCOHOL, ETHYL URINE NONE-DETECTED mg/dL NONE-DETEC PENNY, cutoff = 10 mg/dL PH, DERECK 5.8 [pH] 4-10 CREATININE, DERECK 84.74 mg/dL >20 SP.GRAVITY, DERECK 1.011 1.00 3-1.02 0 Dec 14, 2023 12:27 PM [facility] AMPHETAMINES SCREEN PANEL Specimen Type: URINE [...] Dec 14, 2023 11:59 AM Reporting Lab: [address] [address] Performing Lab: [address] [address] AMPHETAMINES SCREEN NONE-DETECTED None-Detec penny, Cutoff = 1000 ng/mL PH, DERECK 5.8 [pH] 4-10 CREATININE, DERECK 84.74 mg/dL >20 SP.GRAVITY, DERECK 1.011 1.00 3-1.02 0 Dec 14, 2023 12:27 PM [facility] FENTANYL SCREEN PANEL Specimen Type: URINE [...] Dec 14, 2023 11:59 AM Reporting Lab: [address] [address] Performing Lab: [address] [address] FENTANYL SCREEN NONE-DETECTE D ng/mL Negative: Cutoff = 1.00 ng/mL PH, DERECK 5.8 [pH] 4-10 CREATININE, DERECK 85.39 mg/dL >20 SP.GRAVITY, DERECK 1.011 1.00 3-1.02 0 Dec 14, 2023 12:27 PM [facility] BENZODIAZEPINES SCREEN PANEL Specimen Type: URINE [...] Dec 14, 2023 11:59 AM Reporting Lab: [address] [address] Performing Lab: [address] [address] BENZODIAZEPINES SCREEN NONE-DETECTED None-Detec penny, Cutoff = 200 ng/mL PH, DERECK 5.8 [pH] 4-10 CREATININE, DERECK 84.74 mg/dL >20 SP.GRAVITY, DERECK 1.011 1.00 3-1.02 0 Dec 14, 2023 12:27 PM [facility] BUPRENORPHINE SCREEN PANEL Specimen Type: URINE [...] Dec 14, 2023 11:59 AM Reporting Lab: [address] [address] Performing Lab: [address] [address] BUPRENORPHINE (URINE) NONE-DETECTED None Detected, Cutoff = 10.0 ng/mL PH, DERECK 5.8 [pH] 4-10 CREATININE, DERECK 84.74 mg/dL >20 SP.GRAVITY, DERECK 1.011 1.00 3-1.02 0 Dec 14, 2023 12:27 PM [facility] COCAINE SCREEN PANEL Specimen Type: URINE [...] Dec 14, 2023 11:59 AM Reporting Lab: [address] [address] Performing Lab: [address] [address] COCAINE SCREEN NONE-DETECTED N one-Detec penny,Cutoff = 300 ng/mL PH, DERECK 5.8 [pH] 4-10 CREATININE, DERECK 84.74 mg/dL >20 SP.GRAVITY, DREECK 1.011 1.00 3-1.02 0 Dec 14, 2023 12:27 PM [facility] CANNABINOIDS SCREEN PANEL Specimen Type: URINE [...] Dec 14, 2023 11:59 AM Reporting Lab: [address] [address] Performing Lab: [address] [address] CANNABINOIDS SCREEN NONE-DETECTED None-Detec penny,Cutoff = 50 ng/mL PH, DERECK 5.8 [pH] 4-10 CREATININE, DERECK 84.74 mg/dL >20 SP.GRAVITY, DERECK 1.011 1.00 3-1.02 0 Dec 14, 2023 12:27 PM [facility] OPIATES SCREEN PANEL Specimen Type: URINE [...] Dec 14, 2023 11:59 AM Reporting Lab: [address] [address] Performing Lab: [address] [address] OPIATES SCREEN NONE-DETECTED N one-Detec penny, Cutoff = 300 ng/mL PH, DERECK 5.8 [pH] 4-10 CREATININE, DERECK 84.74 mg/dL >20 SP.GRAVITY, DERECK 1.011 1.00 3-1.02 0 Dec 14, 2023 12:27 PM [facility] OXYCODONE SCREEN PANEL Specimen Type: URINE [...] Dec 14, 2023 11:59 AM Reporting Lab: [address] [address] Performing Lab: [address] [address] OXYCODONE SCREEN NONE-DETECTED None-Detec penny, Cutoff = [...] this document. The data comes from all [place] facilities. Date Advance Directives Provider Source Dec 02, 2020 ADVANCE DIRECTIVE ZAIRE COMERLD
--- OUTSIDE RECORDS SUMMARY | 2024-05-20 08:43 | XMS_ITS | Encounter Summary ---
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 (WNR) TRICA RE(WN R) May 28, 2017 (WNR) [id number] [phone] Weston MAK PATIENT [facility] (WNR) HMO May 28, 2014 [id number] Weston MAK PATIENT Selected Encounter This section includes the information on record at [place] for the Encounter. Date/Time Encounter Type Encounter Description Reason Pro vider Source Dec 26, 2023 09:30 AM Outpatient Encounter TELEPHONE/ANCILLARY IHE Encounter Template Text not used by [place] Plan of Treatment: Future Appointments (+ 6 months) and Future Tests (+/- 45 days) The Plan of Treatment section includes future care activities for the patient from all [place] treatmentfacilities. This section includes future appointments and future orders which are active, pending or scheduled. Future Appointments This section includes appointments that were scheduled to occur 6 months from the date of the Encounter, up to a maximum of 20 appointments. The data comes from all [place] treatment facilities. Appointment Date/Time Appointment Type Appointme nt Facility Name Dec 28, 2023 10:00 AM AMBULATORY - [facility]IC[place] [facility] [place] [facility] Jan 11, 2024 09:00 AM AMBULATORY - MEDIC[facility] [place] [facility] Jan 14, 2024 11:00 AM AMBULATORY - RE[facility]AB MEDICIN [facility] [place] [facility] Feb 08, 2024 08:30 AM AMBULATORY - MEDIC[facility] [place] [facility] Feb 26, 2024 08:30 AM AMBULATORY - MEDIC[facility] [place] [facility] Mar 21, 2024 08:30 AM AMBULATORY - MEDIC[facility] [place] [facility] Apr 22, 2024 08:30 AM AMBULATORY - MEDIC[facility] [place] [facility] May 23, 2024 08:30 AM AMBULATORY - MEDIC[facility] [place] [facility] Jun 05, 2024 10:00 AM AMBULATORY [facility] [place] [facility] Jun 05, 2024 11:00 AM AMBULATORY - REHAB MEDICIN E [facility] Lab Results: +/- 30 days [...] Range Comment Dec 14, 2023 12:27 PM [facility] METHADONE SCREEN Specimen Type: URINE Comment: DERECK test are qualitative, any L or H flags only indicate a [place] alert was sent. Ordering Provider: LACEY MCNAMARA Report Released Date/Time: Dec 14, 2023 11:59 AM Reporting Lab: [address] [address] Performing Lab: [facility] [address] [facility] [address] METHADONE SCREEN None detected(Nega tive) L Negative Dec 14, 2023 12:27 PM [facility] ALCOHOL, ETHYL URINE PANEL Specimen Type: [...] 14, 2023 11:59 AM Reporting Lab: [address] [address] Performing Lab: [address] [address] ALCOHOL, ETHYL URINE NONE-DETECTED mg/dL NONE-DETEC PENNY, cutoff = 10 mg/dL PH, DERECK 5.8 [pH] 4-10 CREATININE, DERECK 84.74 mg/dL >20 SP.GRAVITY, DERECK 1.011 1.00 3-1.02 0 Dec 14, 2023 12:27 PM [facility] AMPHETAMINES SCREEN PANEL Specimen Type: URINE [...] 14, 2023 11:59 AM Reporting Lab: [address] [address] Performing Lab: [address] [address] AMPHETAMINES SCREEN NONE-DETECTED None-Detec penny, Cutoff = 1000 ng/mL PH, DERECK 5.8 [pH] 4-10 CREATININE, DERECK 84.74 mg/dL >20 SP.GRAVITY, DERECK 1.011 1.00 3-1.02 0 Dec 14, 2023 12:27 PM [facility] FENTANYL SCREEN PANEL Specimen Type: URINE [...] 14, 2023 11:59 AM Reporting Lab: [address] [address] Performing Lab: [address] [address] FENTANYL SCREEN NONE-DETECTE D ng/mL Negative: Cutoff = 1.00 ng/mL PH, DERECK 5.8 [pH] 4-10 CREATININE, DERECK 85.39 mg/dL >20 SP.GRAVITY, DERECK 1.011 1.00 3-1.02 0 Dec 14, 2023 12:27 PM [facility] BUPRENORPHINE SCREEN PANEL Specimen Type: URINE [...] 14, 2023 11:59 AM Reporting Lab: [address] [address] Performing Lab: [address] [address] BUPRENORPHINE (URINE) NONE-DETECTED None Detected, Cutoff = 10.0 ng/mL PH, DERECK 5.8 [pH] 4-10 CREATININE, DERECK 84.74 mg/dL >20 SP.GRAVITY, DERECK 1.011 1.00 3-1.02 0 Dec 14, 2023 12:27 PM [facility] BENZODIAZEPINES SCREEN PANEL Specimen Type: URINE [...] 14, 2023 11:59 AM Reporting Lab: [address] [address] Performing Lab: [address] [address] BENZODIAZEPINES SCREEN NONE-DETECTED None-Detec penny, Cutoff = 200 ng/mL PH, DERECK 5.8 [pH] 4-10 CREATININE, DERECK 84.74 mg/dL >20 SP.GRAVITY, DERECK 1.011 1.00 3-1.02 0 Dec 14, 2023 12:27 PM [facility] CANNABINOIDS SCREEN PANEL Specimen Type: URINE [...] 14, 2023 11:59 AM Reporting Lab: [address] [address] Performing Lab: [address] [address] CANNABINOIDS SCREEN NONE-DETECTED None-Detec penny,Cutoff = 50 ng/mL PH, DERECK 5.8 [pH] 4-10 CREATININE, DERECK 84.74 mg/dL >20 SP.GRAVITY, DERECK 1.011 1.00 3-1.02 0 Dec 14, 2023 12:27 PM [facility] COCAINE SCREEN PANEL Specimen Type: URINE [...] 14, 2023 11:59 AM Reporting Lab: [address] [address] Performing Lab: [address] [address] COCAINE SCREEN NONE-DETECTED N one-Detec penny,Cutoff = 300 ng/mL PH, DERECK 5.8 [pH] 4-10 CREATININE, DERECK 84.74 mg/dL >20 SP.GRAVITY, DERECK 1.011 1.00 3-1.02 0 Dec 14, 2023 12:27 PM [facility] OPIATES SCREEN PANEL Specimen Type: URINE [...] 14, 2023 11:59 AM Reporting Lab: [address] [id number] Performing Lab: [address] [address] OPIATES SCREEN NONE-DETECTED N one-Detec penny, Cutoff = 300 ng/mL PH, DERECK 5.8 [pH] 4-10 CREATININE, DERECK 84.74 mg/dL >20 SP.GRAVITY, DERECK 1.011 1.00 3-1.02 0 Dec 14, 2023 12:27 PM [facility] OXYCODONE SCREEN PANEL Specimen Type: URINE [...] 14, 2023 11:59 AM Reporting Lab: [address] [address] Performing Lab: [address] [address] OXYCODONE SCREEN NONE-DETECTED None-Detec penny, Cutoff = [...] this document. The data comes from all [place] facilities. Date Advance Directives Provider Source Dec 02, 2020 ADVANCE DIRECTIVE ZAIRE COMER IE Encounter Notes: All associated encounter notes This section contains the clinical notes associated to the Encounter. Date/Time Encounter Note(s) Provider Source Dec 26, 2023 09:30 AM TELEPHONE ENCOUNTE R NOTE: LOCAL TITLE: TELEPHONE NOTE/SPECIALTY CLINIC STANDARD TITLE: TELEPHONE ENCOUNTER NOTE DATE OF NOTE: DEC 26, 2023@09:30 ENTRY DATE: DEC 26, 2023@09:30:39 AUTHOR: YESSI STONE COSIGNER: URGENCY: STATUS: COMPLETED Call attempt was made to remind vet they have a tele appt with the Pain clinic on 12/28/2023 at 1000. No answer, lvm. /jac/ YESSI STONE ADVANCED [employer]ICAL [employer] WORKER Signed: 12/26/2023 09:31 YESSI STONE [place] [facility]
--- OUTSIDE RECORDS SUMMARY | 2024-05-20 08:43 | XMS_ITS ---
Author Name [facility] [place] Address [address] [place] [address] Care Team Providers Care Issuer Name Role Phone KRISTOPHER MAXWELL Primary Care [...] PRESCRIPT ION RX730 1 May 28, 2017 [id number] [phone] OBDULIO,Weston DARION PATIENT CAREMARK PRESCRIPT ION RX730 1 May 28, 2017 [id number] Weston MAK DANIELLETAINAKaren PATIENT OPTUM RX PRESCRIPT ION RX May 28, 2022 [id number] OBDULIO,Weston MANSOORM PATIENT [facility] May 28, 2017 [facility] [id number] OBDULIOW ILLIAM PATIENT [facility] HE[facility] PLAN ALLEGRA Rincon May 28, 2017 [id number] OBDULIO,W ILLIAM PATIENT [facility] (R) TRICA RE(WN R) May 28, 2017 (WNR) [id number] OBDULIO,W ILLIAM [facility]IENT [facility] H[facility] May 28, 2014 [id number] OBDULIO,W ILLIAM PATIENT Selected Encounter This section includes the information on record at [place] for the Encounter. Date/Time Encounter Type Encounter Description Reason Provider Source Dec 28, 2023 10:00 AM MTMS BY TRAY MONET 15 MIN TELEPHONE/STEPHY MICHAEL ICD-10-CM M54.50 Low back pain, unspecified HEMAL MCNAMARA E Encounter Template Text not used by [place] Assessments - Encounter Diagnoses This section includes the primary and secondary diagnoses documented for the Encounter. Date/Time Primary/Secondary Diagnosis Diagnosis Name Provider Source Dec 28, 2023 10:00 AM PRIMARY Low back pain, unspecified HEMAL MCNAMARA [facility] [place] [facility] Plan of Treatment: Future Appointments (+ 6 months) and Future Tests (+/- 45 days) The Plan of Treatment section includes future care activities for the patient from all [place] treatmentfacilities. This section includes future appointments and future orders which are active, pending or scheduled. Future Appointments This section includes appointments that were scheduled to occur 6 months from the date of the Encounter, up to a maximum of 20 appointments. The data comes from all [place] treatment facilities. Appointment Date/Time Appointment Type Appointme nt Facility Name Jan 11, 2024 09:00 AM AMBULATORY - MEDICINE [facility] [facility] [place] [facility] Jan 14, 2024 11:00 AM AMBULATORY - REHAB MEDICIN E [facility] [place] [facility] Feb 08, 2024 08:30 AM AMBULATORY - MEDICINE [facility] [place] [facility] Feb 26, 2024 08:30 AM AMBULATORY - MEDICINE [facility] [place] [facility] Mar 21, 2024 08:30 AM AMBULATORY - MEDICINE [facility] [place] [facility] Apr 22, 2024 08:30 AM AMBULATORY - MEDICINE [facility] [place] [facility] May 23, 2024 08:30 AM AMBULATORY - MEDICINE [facility] [place] [facility] Jun 05, 2024 10:00 AM AMBULATORY - MEDICINE [facility] [place] [facility] Jun 05, 2024 11:00 AM [facility] Lab Results: +/- 30 days of the encounter This section includes the Chemistry and Hematology Lab Results on record with [place] for the patient. Radiology Reports and Pathology Reports are provided separately, in subsequent sections. Lab Results This section contains the Chemistry/Hematology Results that were resulted 30 days before or 30 daysafter the date of the Encounter. Date/Time Source Result Type Result - Unit Interpretation Reference Range Comment Dec 14, 2023 12:27 PM [facility] METHADONE SCREEN Specimen Type: URINE Comment: DERECK test are qualitative, any L or H flags only indicate a [place] alert was sent. Ordering Provider: LACEY MCNAMARA Report Released Date/Time: Dec 14, 2023 11:59 AM Reporting Lab: [facility] [address] [facility] [address] Performing Lab: [facility] [address] [facility] [address] METHADONE SCREEN None detected(Nega tive) L Negative Dec 14, 2023 12:27 PM [facility] ALCOHOL, ETHYL URINE PANEL Specimen Type: [...] Dec 14, 2023 11:59 AM Reporting Lab: [address] [address] Performing Lab: [address] [address] ALCOHOL, ETHYL URINE NONE-DETECTED mg/dL NONE-DETEC PENNY, cutoff = 10 mg/dL PH, DERECK 5.8 [pH] 4-10 CREATININE, DERECK 84.74 mg/dL >20 SP.GRAVITY, DERECK 1.011 1.00 3-1.02 0 Dec 14, 2023 12:27 PM [facility] AMPHETAMINES SCREEN PANEL Specimen Type: URINE [...] Dec 14, 2023 11:59 AM Reporting Lab: [address] [address] Performing Lab: [address] [address] AMPHETAMINES SCREEN NONE-DETECTED None-Detec penny, Cutoff = 1000 ng/mL PH, DERECK 5.8 [pH] 4-10 CREATININE, DERECK 84.74 mg/dL >20 SP.GRAVITY, DERECK 1.011 1.00 3-1.02 0 Dec 14, 2023 12:27 PM [facility] FENTANYL SCREEN PANEL Specimen Type: URINE [...] 14, 2023 11:59 AM Reporting Lab: [facility] [address] [address] Performing Lab: [address] [address] FENTANYL SCREEN NONE-DETECTE D ng/mL Negative: Cutoff = 1.00 ng/mL PH, DERECK 5.8 [pH] 4-10 CREATININE, DERECK 85.39 mg/dL >20 SP.GRAVITY, DERECK 1.011 1.00 3-1.02 0 Dec 14, 2023 12:27 PM [facility] BENZODIAZEPINES SCREEN PANEL Specimen Type: URINE [...] Dec 14, 2023 11:59 AM Reporting Lab: [address] [address] Performing Lab: [address] [address] BENZODIAZEPINES SCREEN NONE-DETECTED None-Detec penny, Cutoff = 200 ng/mL PH, DERECK 5.8 [pH] 4-10 CREATININE, DERECK 84.74 mg/dL >20 SP.GRAVITY, DERECK 1.011 1.00 3-1.02 0 Dec 14, 2023 12:27 PM [facility] BUPRENORPHINE SCREEN PANEL Specimen Type: URINE [...] Dec 14, 2023 11:59 AM Reporting Lab: [address] [address] Performing Lab: [address] [address] BUPRENORPHINE (URINE) NONE-DETECTED None Detected, Cutoff = 10.0 ng/mL PH, DERECK 5.8 [pH] 4-10 CREATININE, DERECK 84.74 mg/dL >20 SP.GRAVITY, DERECK 1.011 1.00 3-1.02 0 Dec 14, 2023 12:27 PM [facility] CANNABINOIDS SCREEN PANEL Specimen Type: URINE [...] Dec 14, 2023 11:59 AM Reporting Lab: [address] [address] Performing Lab: [address] [address] CANNABINOIDS SCREEN NONE-DETECTED None-Detec penny,Cutoff = 50 ng/mL PH, DERECK 5.8 [pH] 4-10 CREATININE, DERECK 84.74 mg/dL >20 SP.GRAVITY, DERECK 1.011 1.00 3-1.02 0 Dec 14, 2023 12:27 PM [facility] COCAINE SCREEN PANEL Specimen Type: URINE [...] Dec 14, 2023 11:59 AM Reporting Lab: [address] [address] Performing Lab: [address] [address] COCAINE SCREEN NONE-DETECTED N one-Detec penny,Cutoff = 300 ng/mL PH, DERECK 5.8 [pH] 4-10 CREATININE, DERECK 84.74 mg/dL >20 SP.GRAVITY, DERECK 1.011 1.00 3-1.02 0 Dec 14, 2023 12:27 PM [facility] OPIATES SCREEN PANEL Specimen Type: URINE [...] Dec 14, 2023 11:59 AM Reporting Lab: [address] [address] Performing Lab: [address] [address] OPIATES SCREEN NONE-DETECTED N one-Detec penny, Cutoff = 300 ng/mL PH, DERECK 5.8 [pH] 4-10 CREATININE, DERECK 84.74 mg/dL >20 SP.GRAVITY, DERECK 1.011 1.00 3-1.02 0 Dec 14, 2023 12:27 PM [facility] OXYCODONE SCREEN PANEL Specimen Type: URINE [...] Dec 14, 2023 11:59 AM Reporting [facility]: [facility] [address] [facility] [address] Performing [facility]: [facility] [address] [facility] [address] OXYCODONE SCREEN NONE-DETECTED None-Detec penny, Cutoff = [...] this document. The data comes from all [place] facilities. Date Advance Directives Provider Source Dec 02, 2020 ADVANCE DIRECTIVE ZAIRE COMER IE Encounter Notes: All associated encounter notes This section contains the clinical notes associated to the Encounter. Date/Time Encounter Note(s) Provider Source Dec 28, 2023 10:32 AM ACCOUNTING OF DISC LOSURES NOTE: LOCAL TITLE: STATE PRESCRIPTION DRUG MONITORING PROGRAM STANDARD TITLE: ACCOUNTING OF DISCLOSURES NOTE DATE OF NOTE: DEC 28, 2023@10:32:33 ENTRY DATE: DEC 28, 2023@10:32:33 AUTHOR: HEMAL MCNAMARA EXP COSIGNER: URGENCY: STATUS: COMPLETED This PDMP query was submitted by Hemal Mcnamara The clinical justification for this PDMP query is to review controlled substances prescribed outside of the [facility], and any additional information that may become available, as an important component of standard clinical care, and in accordance with [facility] policy. Patient information was shared with the PDMP [place]. Prescription(s) filled outside the [facility] in the last 90 days are noted. However, they do not raise significant safety concerns and do not influence the treatment plan at this time. Fill Date ID Written Drug Qty Days Prescriber Rx # Pharmacy Refill Daily Dose * Pymt Type FOOD PROCESSOR 12/21/2023 4 12/14/2023 Pregabalin 225 Mg Capsule 60.00 30 Be Zana [id number] [facility] (4904) 0/1 /[facility] [place] 12/14/2023 4 12/14/2023 Buprenorphine 5 Mcg/hr Patch 4.00 28 Be Zana [id number] [facility] (4904) 0/0 0.12 mg /VA [place] 12/04/2023 4 12/04/2023 Pregabalin 225 Mg Capsule 60.00 30 Be Zana [id number] [facility] (4904) 0/0 /[facility] [place] 10/25/2023 2 10/25/2023 Tramadol Hcl 50 Mg Tablet 15.00 3 Pe Sha [id number] [facility] (1604) 0/0 50.00 MME Comm Ins [place] 10/24/2023 4 10/19/2023 Pregabalin 225 Mg Capsule 60.00 30 Be Zana [id number] [facility] (4904) 0/0 /[facility] [place] 10/13/2023 2 10/13/2023 Oxycodone Hcl (Ir) 5 Mg Tablet 5.00 2 Rm Art [id number] [facility] (1604) 0/0 18.75 [place] 10/01/2023 4 09/28/2023 Pregabalin 225 Mg Capsule 60.00 30 Be Zana [id number] [facility] (4904) 0/0 /[facility] [place] 09/14/2023 3 09/14/2023 Pregabalin 200 Mg Capsule 28.00 14 Be Zana [id number] [facility] (4904) 0/0 /[facility] [place] 09/07/2023 3 09/07/2023 Pregabalin 100 Mg Capsule 42.00 14 Be Zana [id number] [facility] (4904) 0/0 /[place] 08/31/2023 3 08/31/2023 Pregabalin 75 Mg Capsule 42.00 14 Be Zana [id number] [facility] (4904) 0/0 /VA [place] 08/24/2023 3 08/24/2023 Pregabalin 100 Mg Capsule 28.00 14 Be Zana [id number] [facility] (4904) 0/0 /VA [place] 07/26/2023 2 07/26/2023 Oxycodone-Acetaminophen 5-325 40.00 5 Da Kaylen [id number] [facility] (9935) 0/0 60.00 [place] [place] 07/13/2023 2 07/13/2023 Oxycodone-Acetaminophen 5-325 40.00 3 Da Kaylen [id number] [facility] [place] [place] (9935) 0/0 100.00 MME Comm Ins [place] 06/13/2023 2 06/12/2023 Gabapentin 600 Mg Tablet 270.00 90 [place] [id number] Bish[facility] (8260) 0/0 Comm Ins [place] 03/08/2023 1 03/06/2023 Gabapentin 600 Mg Tablet 270.00 90 [place] [id number] Bishnu (8260) 0/0 Comm Ins [place] 11/01/2022 1 07/12/2022 Gabapentin 600 Mg Tablet 270.00 90 [place] [id number] Bishnu (8272) / Comm Ins [place] 07/25/2022 2 07/12/2022 Gabapentin 600 Mg Tablet 270.00 90 An Sha [id number] Bishnu (8272) 0/ Comm Ins [place] 05/04/2022 2 05/01/2022 Gabapentin 600 Mg Tablet 270.00 90 [place] [id number] Bishnu (8272) 0/0 Comm Ins [place] 02/06/2022 1 02/02/2022 Gabapentin 600 Mg Tablet 270.00 90 [place] [id number] Bishnu (8272) 0/0 Comm Ins [place] // HEMAL MCNAMARA CLINICAL PHARMACIST PRACTITIONER, PAIN Signed: 12/28/2023 10:32 HEMAL MCNAMARA [facility] [place] [facility] Dec 28, 2023 08:24 AM [facility] NOTE: LOCAL TITLE: PAIN CLINIC NOTE STANDARD TITLE: PAIN MEDICINE OUTPATIENT NOTE DATE OF NOTE: DEC 28, 2023@08:24 ENTRY DATE: DEC 28, 2023@08:25 AUTHOR: HEMAL MCNAMARA EXP COSIGNER: URGENCY: STATUS: COMPLETED TEODORA Da Silva is 68 year old WHITE MALE with a history of chronic back pain, who presents via telephone to pharmacy pain management clinic today for focused follow-up appointment re: initiation of Burtans 5mcg/hr patch. Hinton was last seen in clinic on 12/14/23; please see previous Pain Clinic notes for additional details. SUBJECTIVE/OBJECTIVE: TEODORA Da Silva reports today he is on the second week of use of Butrans 5mcg/hr. He has not noticed much effect. He denies any significant change to pain presentation or quality. He does not report any side effects related to use and denies difficulties with application or rotation. -- EVALUATION OF PAIN RELATED MEDICATIONS: ------ A focused pain related medication reconciliation was performed. #1. Butrans 5mcg/hr Q7days - See above #2. Pregabalin 225mg BID - comes taking as prescribed; received renewal #3. Non-VA Acetaminophen 325mg EVALUATION OF SOCIAL HISTORY: ---- TOBACCO USE: Denied. Quit ~30 yrs ago ALCOHOL USE: Socially when at [employer]; 1-2 beers, 1-2x per week CANNABIS USE: Denied. OTHER ILLICIT SUBSTANCES: Denied. RISK MITIGATION: LONG-TERM CONSENT: Reviewed and completed 12/14/23 NALOXONE: Education and dispensing completed 12/14/23 UDS MONITORING: Completed 12/14/23; results salgado negative PDMP: Completed 12/14/23 with issuance of Butrans C-SSRS: Completed on 08/24/23 at initial consult * DIPHENHYDRAMINE Active and Recently Outpatient Medications (excluding Supplies): Active Outpatient Medications Status 1) ASPIRIN 81MG EC TAB TAKE ONE TABLET BY MOUTH ONCE ACTIVE DAILY TO PREVENT STROKE/HEART ATTACK 2) BUPRENORPHINE 5MCG/HR PATCH APPLY 1 PATCH TO SKIN ACTIVE EVERY 7 DAYS FOR PAIN (REMOVE PATCH BEFORE APPLYING A NEW PATCH) 3) DICLOFENAC EPOLAMINE 1.3% PATCH APPLY 1 PATCH TO SKIN ACTIVE TWICE DAILY NEEDED FOR PAIN 4) NALOXONE HCL 4MG/SPRAY SOLN NASAL SPRAY INSTILL 1 ACTIVE SPRAY ONE NOSTRIL ONE TIME NEEDED FOR OPIOID OVERDOSE CALL 911 WITH ADMINISTRATION. REPEAT WITH SECOND DEVICE IF SYMPTOMS RETURN 5) PREGABALIN 225MG ORAL CAP TAKE ONE CAPSULE BY MOUTH ACTIVE TWICE DAILY FOR PAIN Active Non-VA Medications Status 1) Non-VA ACETAMINOPHEN 325MG TAB 1300MG BY MOUTH THREE ACTIVE TIMES DAILY NEEDED 2) Non-VA ALFUZOSIN HCL 10MG SA TAB 10MG BY MOUTH DAILY ACTIVE 3) Non-VA TADALAFIL 5MG TAB 5MG BY MOUTH DAILY ACTIVE 8 Total Medications * Active problems - Computerized Problem List is the source for the followin. Hyperlipidemia ([facility] [id number]) 2. Impaired Fasting Glucose ([facility] [id number]) 3. Erectile Dysfunction ([facility] [id number]) 4. Tinnitus 5. Hearing loss 6. Exposure to Potentially Hazardous Substance ([facility] [id number]) 7. Syncope and collapse 8. Low back [...] Non-VA providers for chronic pain related interventions. appears to be tolerating use of Butrans patch, although little benefit noted at this time. Provided reassurance to there was the ability to titrate dose now that tolerability had been established. Will increase to Butrans 7.5mcg/hr Q7days. Reviewed potential risk vs. benefits of use. provided the opportunity to ask any questions which were then answered accordingly. Will continue to provide close monitoring as Butrans dose is optimized. A shared decision-making approach was used in the development of this plan, involving the and clinician caregivers present. The was provided the opportunity express questions or concerns, and the plan was adjusted as needed to address these concerns. Hinton verbalized understanding of the plan, including possible known risks and benefits, and had no additional questions. PLAN: 1. Start Butrans 7.5mcg/hr Q7days 2. Continue Pregabalin 225mg BID F/U via telephone in 2 weeks; Pt instructed to contact clinic with any questions or concerns prior to next encounter. - Encounter Time: 30 minutes /jac/ HEMAL MCNAMARA CLINICAL PHARMACIST PRACTITIONER, PAIN Signed: 12/28/2023 14:16 HEMAL MCNAMARA [facility]
--- OUTSIDE RECORDS SUMMARY | 2024-05-20 08:44 | XMS_ITS ---
Author Name [facility] [place] Address [address] [place] [address] Care Team Providers Care Occupational Health Nursing Director Name Role Phone KRISTOPHER MAXWELL Primary [...] PRESCRIPT ION RX730 1 May 28, 2017 [id number] [phone] Weston MAK MANSOORKaren PATIENT CAREMARK PRESCRIPT ION RX730 1 May 28, 2017 [id number] [phone] Weston MAK PATIENT OPTUM RX PRESCRIPT ION RX May 28, 2022 [id number] [phone] Weston MAK PATIENT [facility] HEALTH PLAN ALLEGRA Lamar May 28, 2017 [id number] OBDULIO,W ILLIAM PATIENT [facility] HEALTH PLAN USP May 28, 2017 [facility] [id number] [phone] OBDULIO,W ILLIAM PATIENT [facility] (WNR) TRICA RE(WN R) May 28, 2017 (WNR) [id number] OBDULIO,W ILLIAM [facility] HMO May 28, 2014 [id number] OBDULIO,W ILLIAM PATIENT Selected Encounter This section includes the information on record at [place] for the Encounter. Date/Time Encounter Type Encounter Description Reason Provider Source Jan 14, 2024 11:00 AM HEARING AID REPAIR/MODIFYIN G AUDIOLOGY ICD-10-CM Z46.1 Encounter for fitting and adjustment of hearing aid CHRIS ROBERTSON Encounter Template Text not used by [place] Assessments - Encounter Diagnoses This section includes the primary and secondary diagnoses documented for the Encounter. Date/Time Primary/Secondary Diagnosis Diagnosis Name Provider Source Jan 14, 2024 11:41 AM PRIMARY Encounter for fitting and adjustment of hearing aid LEANDRO CASTELLANO [facility] Jan 14, 2024 11:41 AM SECONDARY Sensorineural hearing loss, bilateral LEANDRO CASTELLANO [facility] Plan of Treatment: Future Appointments (+ 6 months) and Future Tests (+/- 45 days) The Plan of Treatment section includes future care activities for the patient from all [place] treatmentfacilities. This section includes future appointments and future orders which are active, pending or scheduled. Future Appointments This section includes appointments that were scheduled to occur 6 months from the date of the Encounter, up to a maximum of 20 appointments. The data comes from all [place] treatment facilities. Appointment Date/Time Appointment Type Appointme nt Facility Name Feb 08, 2024 08:30 AM AMBULATORY - MEDICINE [facility] [place] [facility] Feb 26, 2024 08:30 AM AMBULATORY - MEDICINE [place] [facility] [place] [facility] Mar 21, 2024 08:30 AM AMBULATORY - MEDICINE [place] [facility] [place] [facility] Apr 22, 2024 08:30 AM AMBULATORY - MEDICINE [place] [facility] [place] [facility] May 23, 2024 08:30 AM AMBULATORY - MEDICINE [place] [facility] [place] [facility] Jun 05, 2024 10:00 AM AMBULATORY - MEDICINE [place] [facility] [place] [facility] Jun 05, 2024 11:00 AM AMBULATORY - [facility] MEDICIN E [facility] Advance Directives: All historical and current Section Date Range: From patient's date of to the date document was created. This section includes ALL of a patient's completed or amended [place] Advance and Rescinded Directives. The entries below indicate that a directive exists for the patient, but an actual copy is not included with this document. The data comes from all [place] facilities. Date Advance Directives Provider Source Dec 02, 2020 ADVANCE DIRECTIVE ZAIRE COMER [facility] IE Encounter Notes: All associated encounter notes This section contains the clinical notes associated to the Encounter. Date/Time Encounter Note(s) Provider Source Jan 14, 2024 07:55 AM AUDIOLOGY NOTE: LOCAL TITLE: AUDIOLOGY HEALTH REAL ESTATE PROFESSIONAL STANDARD TITLE: AUDIOLOGY NOTE DATE OF NOTE: JAN 14, 2024@07:55 ENTRY DATE: JAN 14, 2024@07:55:19 AUTHOR: JOSÉ CASTELLANO COSIGNER: CHRIS ROBERTSON URGENCY: STATUS: COMPLETED January 14, 2024 History/Background: was seen for a hearing aid follow up, unaccompanied. was scheduled today for maintenance on his hearing aids. Hearing aids: Melanie EVOLV [facility] Serial Numbers: [id number] Battery Size: 13 Date Issued: 07/06/2023 Hearing aid check: Both hearing aids were cleaned and checked. Replaced tubes and tonehooks on ALL 6 earmolds, and madison covers. Biologic check was good. Plan: [facility] will call to schedule. Note: All future appointments should be 60 mins as has 6 earmolds he would like tubed. /jac/ JOSÉ CASTELLANO Audiology Health Archivist Economic History Signed: 01/14/2024 11:42 /jac/ ALISA GREGORIO, [facility]-A STAFF [employer] AR[employer] Cosigned: 01/14/2024 12:47 JOSÉ CASTELLANO [facility]
--- OUTSIDE RECORDS SUMMARY | 2024-05-20 08:44 | XMS_ITS | Encounter Summary ---
Author Name [facility] [place] Organization [place] Address [address] [place] [address] Care Team Providers Care Marketing Production Manager Name Role Phone KRISTOPHER MAXWELL Primary [...] PRESCRIPT ION RX730 1 May 28, 2017 [id number] OBDULIOWeston DANIELLETAINAM PATIENT CAREMARK PRESCRIPT ION RX730 1 May 28, 2017 [id number] Weston MAKM PATIENT OPTUM RX PRESCRIPT ION RX May 28, 2022 [id number] [id number] [phone] Weston MAK ILLIAM PATIENT [facility] PL[facility] ALLEGRA Rincon May 28, 2017 [id number] Weston MAK PATIENT [facility] HEALTH PLAN USP May 28, 2017 [facility] [id number] [phone] Weston MAK PATIENT [facility] (WNR) TRIC RE(WN R) May 28, 2017 (WNR) [id number] Weston MAK PATIENT [facility] HEALTH[facility] (WNR) HMO May 28, 2014 [id number] Weston MAK PATIENT Selected Encounter This section includes the information on record at [place] for the Encounter. Date/Time Encounter Type Encounter Description Reason Pro vider Source Feb 07, 2024 08:21 AM Outpatient Encounter TELEPHONE/ANCILLARY IHE Encounter Template Text not used by [place] Plan of Treatment: Future Appointments (+ 6 months) and Future Tests (+/- 45 days) The Plan of Treatment section includes future care activities for the patient from all [place] treatmentfacilities. This section includes future appointments and future orders which are active, pending or scheduled. Future Appointments This section includes appointments that were scheduled to occur 6 months from the date of the Encounter, up to a maximum of 20 appointments. The data comes from all [place] treatment facilities. Appointment Date/Time Appointment Type Appointme nt Facility Name Feb 08, 2024 08:30 AM AMBULATORY - MEDICINE [place] [facility] [place] [facility] Feb 26, 2024 08:30 AM AMBULATORY - MEDICINE [place] [facility] [place] [facility] Mar 21, 2024 08:30 AM AMBULATORY - MEDICINE [place] [facility] [place] [facility] Apr 22, 2024 08:30 AM AMBULATORY - MEDICINE [place] [facility] [place] [facility] May 23, 2024 08:30 AM AMBULATORY - MEDICINE [place] [facility] [place] [facility] Jun 05, 2024 10:00 AM AMBULATORY - MEDICINE [place] [facility] [place] [facility] Jun 05, 2024 11:00 AM AMBULATORY - [facility]ICIN [facility] Advance Directives: All historical and current Section Date Range: From patient's date of to the date document was created. This section includes ALL of a patient's completed or amended [place] Advance and Rescinded Directives. The entries below indicate that a directive exists for the patient, but an actual copy is not included with this document. The data comes from all [place] facilities. Date Advance Directives Provider Source Dec 02, 2020 ADVANCE DIRECTIVE ZAIRE COMER DEV IELD Encounter Notes: All associated encounter notes This section contains the clinical notes associated to the Encounter. Date/Time Encounter Note(s) Provider Source Feb 07, 2024 08:21 AM TELEPHONE ENCOUNTE R NOTE: LOCAL TITLE: TELEPHONE NOTE/SPECIALTY CLINIC STANDARD TITLE: TELEPHONE ENCOUNTER NOTE DATE OF NOTE: FEB 07, 2024@08:21 ENTRY DATE: FEB 07, 2024@08:21:57 AUTHOR: YESSI STONE COSIGNER: URGENCY: STATUS: COMPLETED Call attempt was made to remind vet they have a tele appt with the Pain clinic on 02/08/2024 at 830. No answer, lvm. /jac/ YESSI STONE ADVANCED [employer] PRESS OPERATOR Signed: 02/07/2024 08:22 YESSI STONE [place] [facility]
--- OUTSIDE RECORDS SUMMARY | 2024-05-20 08:44 | XMS_ITS ---
Author Name [facility] [place] Address [address] [place] [address] Care Team Providers Care Flare Maker Name Role Phone KRISTOPHER MAXWELL Primary [facility] Provider [facility] Insurance Providers: All historical and [...] PRESCRIPT ION [id number] 1 May 28, 2017 [id number] [phone] OBD[place] SNOWM PATIENT CAREMARK PRESCRIPT ION [id number] 1 May 28, 2017 [id number] Weston MAKM PATIENT OPTUM RX PRESCRIPT ION RX May 28, 2022 [id number] OBDULIO,W ILLIAM PATIENT [facility] PLAN ALLEGRA Rincon May 28, 2017 [id number] Weston MAK PATIENT [facility] HEALTH PLAN USP May 28, 2017 [facility] [id number] OBDULIO,W ILLIAM PATIENT [facility] (WNR) TRICA RE(WN R) May 28, 2017 (WNR) [id number] OBDULIO,W ILLIAM PATIENT [facility] HMO May 28, 2014 [id number] Weston MAK PATIENT Selected Encounter This section includes the information on record at [place] for the Encounter. Date/Time Encounter Type Encounter Description Reason Provider Source Feb 08, 2024 10:31 AM IMMUNIZATION ADMIN PRIMARY CARE/MEDICINE ICD-10-CM Z23 Encounter for immunization ONEILBAKARI [facility] Encounter Template Text not used by [place] Assessments - Encounter Diagnoses This section includes the primary and secondary diagnoses documented for the Encounter. Date/Time Primary/Secondary Diagnosis Diagnosis Name Provider Source Feb 08, 2024 10:36 AM PRIMARY Encounter for immunization [facility]LL [place] [facility] Plan of Treatment: Future Appointments (+ [...] Appointment Type Appointme nt Facility Name Feb 26, 2024 08:30 AM AMBULATORY - MEDICINE [place] [facility] [place] [place] [facility] Mar 21, 2024 08:30 AM AMBULATORY - MEDICINE [place] [facility] [place] [facility] Apr 22, 2024 08:30 AM AMBULATORY - MEDICINE [place] [facility] [facility] May 23, 2024 08:30 AM AMBULATORY - MEDICINE [place] [facility] [place] [facility] Jun 05, 2024 10:00 AM AMBULATORY - MEDICINE [place] [facility] [place] [facility] Jun 05, 2024 11:00 AM [facility] Immunizations: All administered on the encounter date This section contains immunizations associated to the Encounter. Immunization Series Date Issued Reaction Comments INFLUENZA, HIGH-DOSE, TRIVALENT, PF Feb 07 Advance Directives: All historical and current Section Date Range: From patient's date of to the date document was created. This section includes ALL of a patient's completed or amended [place] Advance and Rescinded Directives. The entries below indicate that a directive exists for the patient, but an actual copy is not included with this document. The data comes from all [place] facilities. Date Advance Directives Provider Source Dec 02, 2020 ADVANCE DIRECTIVE ZAIRE COMER [facility] IELD Encounter Notes: All associated encounter notes This section contains the clinical notes associated to the Encounter. Date/Time Encounter Note(s) Provider Source Feb 08, 2024 10:31 AM PREVENTIVE MEDICIN E NURSING NOTE: LOCAL TITLE: CLINICAL REMINDERS/NURSING STANDARD TITLE: PREVENTIVE MEDICINE NURSING NOTE DATE OF NOTE: FEB 08, 2024@10:31 ENTRY DATE: FEB 08, 2024@10:31:39 AUTHOR: KENDELL RIGGS EXP COSIGNER: URGENCY: STATUS: COMPLETED Influenza Immunization: Influenza, High-Dose, Trivalent, Preservative Free (Fluzone-Syringe) Administered: INFLUENZA, HIGH-DOSE, TRIVALENT, PF Date Administered: Feb 08, 2024 10:31 Outreach Educator: SANOFI PASTEUR Lot: [id number] Exp Date: Nov 24, 2024 NDC: [id number] Admin Route/Site: INTRAMUSCULAR/LEFT DELTOID Dosage: 0.5mL Vaccine Information Statement(s): INFLUENZA(FLU) VACC(INACTIVATED OR RECOMBINANT)VIS Dec 31, 2020 (GUINEAN) Order By: Policy Administered By: Mery Peter The Influenza Vaccine Information Statement (VIS) was reviewed with the patient/caregiver which lists the benefits and risks of the vaccine and the risks of not receiving the Influenza vaccine. The patient/caregiver denied any prior severe reaction to this vaccine or its components or a severe allergic reaction, such as anaphylaxis, to any vaccine or any injectable therapy. The patient/caregiver gave verbal consent to receive the vaccine. /jac/ KENDELL HOWARD, RN METAL SPRAYER [employer]ACHIN[employer] NURSE COLLECTION SPECIALIST W9 PTSD RRTP Signed: 02/08/2024 10:36 [facility]LL [facility]IGGS [facility]
--- OUTSIDE RECORDS SUMMARY | 2024-05-20 08:44 | XMS_ITS | Encounter Summary ---
Author Name [place] Address [address] [place] [address] Care Team Providers Care Auditor Supervisor Name Role Phone KRISTOPHER MAXWELL Primary [facility] Insurance Providers: All historical and [...] PRESCRIPT ION RX730 1 May 28, 2017 [id number] Weston MAK PATIENT CAREMARK PRESCRIPT ION RX730 1 May 28, 2017 [id number] [phone] OBDULIO,Weston MANSOORM PATIENT OPTUM RX PRESCRIPT ION RX May 28, 2022 [id number] [phone] OBDULIO,W ILLIAM PATIENT [facility] PLAN ALLEGRA Rincon May 28, 2017 [id number] OBDULIO,W ILLIAM PATIENT [facility] HEALTH PLAN USP May 28, 2017 [facility] [id number] OBDULIO,W ILLIAM PATIENT [facility] (WNR) TRICA RE(WN R) May 28, 2017 (WNR) [id number] OBDULIO,W ILLIAM [facility] H[facility] May 28, 2014 [id number] [phone] OBDULIO,W ILLIAM PATIENT Selected Encounter This section includes the information on record at [place] for the Encounter. Date/Time Encounter Type Encounter Description Reason Provider Source Feb 26, 2024 08:30 AM MTMS BY TRAY MONET 15 MIN TELEPHONE/STEPHY MICHAEL ICD-10-CM M54.50 Low back pain, unspecified TERI MCNAMARA E Encounter Template Text not used by [place] Assessments - Encounter Diagnoses This section includes the primary and secondary diagnoses documented for the Encounter. Date/Time Primary/Secondary Diagnosis Diagnosis Name Provider Source Feb 26, 2024 08:30 AM PRIMARY Low back pain, unspecified TEIR MCNAMARA [place] [facility] [place] [facility] Plan of Treatment: Future Appointments (+ 6 months) and Future Tests (+/- 45 days) The Plan of Treatment section includes future care activities for the patient from all [place] treatmentfacilities. This section includes future appointments and future orders which are active, pending or scheduled. Future Appointments This section includes appointments that were scheduled to occur 6 months from the date of the Encounter, up to a maximum of 20 appointments. The data comes from all [place] treatment facilities. Appointment Date/Time Appointment Type Appointme nt Facility Name Mar 21, 2024 08:30 AM AMBULATORY - MEDICINE [place] [facility] [place] [facility] Apr 22, 2024 08:30 AM AMBULATORY - MEDICINE [place] [facility] [place] [facility] May 23, 2024 08:30 AM AMBULATORY - MEDICINE [place] [facility] [place] [facility] Jun 05, 2024 10:00 AM AMBULATORY - MEDICINE [place] [facility] [place] [facility] Jun 05, 2024 11:00 AM AMBULATORY - REHAB MEDICIN E [facility] [place] [facility] Aug 21, 2024 01:00 PM AMBULATORY - MEDICINE [facility] Advance Directives: All historical and current Section Date Range: From patient's date of to the date document was created. This section includes ALL of a patient's completed or amended [place] Advance and Rescinded Directives. The entries below indicate that a directive exists for the patient, but an actual copy is not included with this document. The data comes from all [place] facilities. Date Advance Directives Provider Source Dec 02, 2020 ADVANCE DIRECTIVE ZAIRE COMER [facility] IELD Encounter Notes: All associated encounter notes This section contains the clinical notes associated to the Encounter. Date/Time Encounter Note(s) Provider Source Feb 26, 2024 08:55 AM ACCOUNTING OF DISC LOSURES NOTE: LOCAL TITLE: STATE PRESCRIPTION DRUG MONITORING PROGRAM STANDARD TITLE: ACCOUNTING OF DISCLOSURES NOTE DATE OF NOTE: FEB 26, 2024@08:55:33 ENTRY DATE: FEB 26, 2024@08:55:33 AUTHOR: TERI MCNAMARA EXP COSIGNER: URGENCY: STATUS: COMPLETED This PDMP query was submitted by Teri Mcnamara. The clinical justification for this PDMP query is to review controlled substances prescribed outside of the [facility], and any additional information that may become available, as an important component of standard clinical care, and in accordance with [facility] policy. Patient information was shared with the PDMP Appriss Dow. No prescription(s) for controlled substances outside the [facility] were found in the last 90 days. /jac/ TERI MCNAMARA CLINICAL PHARMACIST PRACTITIONER, PAIN Signed: 02/26/2024 08:56 TER[facility] MCNAMARA [place] [facility] Feb 26, 2024 08:55 AM MEDICATION MGT NOT E: LOCAL TITLE: OVERDOSE EDUCATION AND NALOXONE STANDARD TITLE: MEDICATION MGT NOTE DATE OF NOTE: FEB 26, 2024@08:55 ENTRY DATE: FEB 26, 2024@08:55:40 AUTHOR: TERI MCNAMARA EXP COSIGNER: URGENCY: STATUS: COMPLETED Opioid [...] Naloxone An order was placed for naloxone. /jac/ TERI MCNAMARA CLINICAL PHARMACIST PRACTITIONER, PAIN Signed: 02/26/2024 08:56 TERI MCNAMARA [place] [facility] [place] [facility] Feb 26, 2024 08:12 AM [facility] NOTE: LOCAL TITLE: PAIN CLINIC NOTE STANDARD TITLE: PAIN MEDICINE OUTPATIENT NOTE DATE OF NOTE: FEB 26, 2024@08:12 ENTRY DATE: FEB 26, 2024@08:12:56 AUTHOR: TERI MCNAMARA EXP COSIGNER: URGENCY: STATUS: COMPLETED TEODORA Da Silva is 68 year old WHITE MALE with a history of chronic back pain, who presents via telephone to pharmacy pain management clinic today for routine follow-up appointment. [place] was last seen in clinic on 02/08/24; transitioned from Butrans to Belbuca at that appointment. SUBJECTIVE/OBJECTIVE: TEODORA Da Silva reports today he has been using prescription of Belbuca 75mcg BID for about two weeks now. He has not noticed a significant difference in pain compared to previous dose of Butrans 10mcg/hr. He reports sometimes having difficulty with getting films to stay adhered to cheek but is improving his technique. He denies any side effect related to use including sedation, fatigue, constipation, or irritation of oral mucosa. Unfortunately, [place] has learned he will need to have another surgery on right shoulder d/t new bicep tear following fall at work back in September. He is meeting with his Non-VA Orthopedic surgeon next week on 03/05. ----- EVALUATION OF PAIN RELATED MEDICATIONS: ------ A focused pain related medication reconciliation was performed. #1. Belbuca 75mcg BID - See above #2. Pregabalin 225mg BID - confirms taking as prescribed - No side effects reported today including sedation or fatigue #3. Non-VA Acetaminophen 325mg EVALUATION OF SOCIAL HISTORY: ---- TOBACCO USE: Denied. Quit ~30 yrs ago ALCOHOL USE: Socially when at [employer]; 1-2 beers, 1-2x per week CANNABIS USE: Denied. OTHER ILLICIT SUBSTANCES: Denied. RISK MITIGATION: LONG-TERM CONSENT: Reviewed and completed 12/14/23 NALOXONE: Education and dispensing completed 12/14/23. asks today to have second kit [place] ( splits time between home/camp). UDS MONITORING: Completed 12/14/23; results slagado negative PDMP: Completed 02/08/24 with issuance of Belbuca C-SSRS: Completed on 08/24/23 at initial consult * DIPHENHYDRAMINE Active and Recently Outpatient Medications (excluding Supplies): Active Outpatient Medications Status 1) ASPIRIN 81MG EC TAB TAKE ONE TABLET BY MOUTH ONCE ACTIVE DAILY TO PREVENT STROKE/HEART ATTACK 2) BUPRENORPHINE 75MCG BUCCAL FILM PLACE ONE FILM ACTIVE BETWEEN CHEEK AND GUM UNTIL DISSOLVED EVERY 12 HOURS FOR PAIN 3) DICLOFENAC EPOLAMINE 1.3% PATCH APPLY 1 PATCH TO SKIN ACTIVE TWICE DAILY NEEDED FOR PAIN 4) PREGABALIN 225MG ORAL CAP TAKE ONE CAPSULE [...] is the source for the followin. Hyperlipidemia ([facility] [id number]) 2. Impaired Fasting Glucose ([facility] [id number]) 3. Erectile Dysfunction ([facility] [id number]) 4. Tinnitus 5. Hearing loss 6. Exposure to Potentially Hazardous Substance ([facility] [id number]) 7. Syncope and collapse 8. Low back [...] ASSESSMENT: Mr. Mak is a 68-year-old male [place] with a history of chronic low back pain s/p multiple surgeries to cervical and lumbar spine. also followed by Non-VA providers for chronic pain related interventions. continues to tolerate regimen based on report, however, only minimal benefit from addition of buprenorphine has been observed. Discussed with [place] continuing with Belbuca titration today as current dose is likely still subtherapeutic. [place] in agreement will increase to 150mcg BID. Reviewed potential risks vs. benefits of therapy with . No other medication changes made today. Will continue to assess regimen with consideration for potential post-op care needs pending further discussion with surgeon. Request for second naloxone kit to keep on hand at camp residence is appropriate. Reviewed education on proper use; [place] demonstrates a good understanding. A shared decision-making approach was used in the development of this plan, involving the [place] and clinician present. The was provided the opportunity express questions or concerns, and the plan was adjusted as needed to address these concerns. [place] verbalized understanding of the plan, including possible known risks and benefits, and had no additional questions. PLAN: 1. Start Belbuca 150mcg BID 2. Continue Pregabalin 225mg BID 3. PDMP queried; results returned as expected 4. Naloxone kit education reviewed; new kit ordered F/U via telephone in 4 weeks; Pt instructed to contact clinic with any questions or concerns prior to next encounter. Risk mitigation tools: 1. Long-Term Consent for Opioid Therapy completed 12/14/23 2. Naloxone kit prescribing and education on its use and s/sx of OIRD reviewed and updated today 3. UDS monitoring completed 12/14/23 4. PDMP and a State Prescription Drug Monitoring Note completed today - Encounter Time: 30 minutes /jac/ TERI MCNAMARA CLINICAL PHARMACIST PRACTITIONER, PAIN Signed: 02/26/2024 08:56 TERI MCNAMARA [place] [facility]
--- OUTSIDE RECORDS SUMMARY | 2024-05-20 08:44 | XMS_ITS ---
Author Name [facility] [facility] [place] Address [address] [place] [address] Care Team Providers Care Elastic Yarn Twister Helper Name Role Phone KRISTOPHER MAXWELL Primary Care Provider [facility] Insurance Providers: All historical and [...] PRESCRIPT ION [id number] 1 May 28, 2017 [id number] [phone] [place]on MAK PATIENT CAREMARK PRESCRIPT ION [id number] 1 May 28, 2017 [id number] [phone] OBDULIO,Weston MANSOORM PATIENT [employer] RX PRESCRIPT ION RX May 28, 2022 [id number] OBDULIO,W ILLIAM PATIENT [facility] PL[facility] ALLEGRA Rin[place] May 28, 2017 [id number] OBDULIO,W ILLIAM PATIENT [facility] USP May 28, 2017 [facility] [id number] OBDULIO,W ILLIAM PATIENT [facility] (WNR) TRICA RE(WN R) May 28, 2017 (WNR) [id number] OBDULIO,W ILLIAM [facility] H[facility] May 28, 2014 [id number] [phone] OBDULIO,W ILLIAM PATIENT Selected Encounter This section includes the information on record at [place] for the Encounter. Date/Time Encounter Type Encounter Description Reason Provider Source Feb 08, 2024 08:30 AM MTMS BY TRAY MONET 15 MIN TELEPHONE/STEPHY MICHAEL ICD-10-CM M54.50 Low back pain, unspecified TERI MCNAMARA E Encounter Template Text not used by [place] Assessments - Encounter Diagnoses This section includes the primary and secondary diagnoses documented for the Encounter. Date/Time Primary/Secondary Diagnosis Diagnosis Name Provider Source Feb 08, 2024 08:30 AM PRIMARY Low back pain, unspecified TERI MCNAMARA PA [facility] [place] [facility] Plan of Treatment: Future Appointments (+ 6 months) and Future Tests (+/- 45 days) The Plan of Treatment section includes future care activities for the patient from all [place] treatmentfacilities. This section includes future appointments and future orders which are active, pending or scheduled. Future Appointments This section includes appointments that were scheduled to occur 6 months from the date of the Encounter, up to a maximum of 20 appointments. The data comes from all [place] treatment facilities. Appointment Date/Time Appointment Type Appointme nt Facility Name Feb 26, 2024 08:30 AM AMBULATORY - MEDICINE PA C [facility] [place] [facility] Mar 21, 2024 08:30 AM AMBULATORY - MEDICINE PA C [facility] [place] [facility] Apr 22, 2024 08:30 AM AMBULATORY - MEDICINE PA C [facility] [place] [facility] May 23, 2024 08:30 AM AMBULATORY - MEDICINE PA [facility] [place] [facility] Jun 05, 2024 10:00 AM AMBULATORY - MEDICINE PA C [facility] [place] [facility] Jun 05, 2024 11:00 AM AMBULATORY - REHAB MEDICIN E [facility] Advance Directives: All historical and current Section Date Range: From patient's date of to the date document was created. This section includes ALL of a patient's completed or amended [place] Advance and Rescinded Directives. The entries below indicate that a directive exists for the patient, but an actual copy is not included with this document. The data comes from all [place] facilities. Date Advance Directives Provider Source Dec 02, 2020 ADVANCE DIRECTIVE ZAIRE COMER [facility] IE Encounter Notes: All associated encounter notes This section contains the clinical notes associated to the Encounter. Date/Time Encounter Note(s) Provider Source Feb 08, 2024 08:14 AM ACCOUNTING OF DISCLOSURES NOTE: LOCAL TITLE: STATE PRESCRIPTION DRUG MONITORING PROGRAM STANDARD TITLE: ACCOUNTING OF DISCLOSURES NOTE DATE OF NOTE: FEB 08, 2024@08:14:12 ENTRY DATE: FEB 08, 2024@08:14:12 AUTHOR: TERI MCNAMARA EXP COSIGNER: URGENCY: STATUS: COMPLETED This PDMP query was submitted by Teri Mcnamara. The clinical justification for this PDMP query is to review controlled substances prescribed outside of the [place], and any additional information that may become available, as an important component of standard clinical care, and in accordance with [facility] policy. Patient information was shared with the PDMP [place]. No prescription(s) for controlled substances outside the [facility] were found in the last 90 days. /jac/ TERI MCNAMARA CLINICAL PHARMACIST PRACTITIONER, PAIN Signed: 02/08/2024 08:53 [facility]ARA [facility] Feb 08, 2024 08:09 AM PAIN MEDICINE OUTPATIENT NOTE: LOCAL TITLE: PAIN CLINIC NOTE STANDARD TITLE: PAIN MEDICINE OUTPATIENT NOTE DATE OF NOTE: FEB 08, 2024@08:09 ENTRY DATE: FEB 08, 2024@08:09:47 AUTHOR: TERI MCNAMARA EXP COSIGNER: URGENCY: STATUS: COMPLETED TEODORA Da Silva is 68 year old WHITE MALE with a history of chronic back pain, who presents via telephone to pharmacy pain management clinic today for routine follow-up appointment. was last seen in clinic on 01/11/24; Butrans titrated to 10mcg/hr Q7days. SUBJECTIVE/OBJECTIVE: TEODORA Da Silva reports today he is on his fourth week of Butrans 10mcg/hr. He still has not noticed a significant difference in pain level. He rate his pain today as 5 out of 10 on the NRS. Continues to find that he bends over d/t the pain. -- PAIN SCREENING: PEG PAIN SCREENING [...] 5.6 -- EVALUATION OF PAIN RELATED MEDICATIONS: ----- A focused pain related medication reconciliation was performed. #1. Butrans 10mcg/hr Q7days - Denies side effects related to use including constipation, sedation, fatigue, or localized skin irritation #2. Pregabalin 225mg BID - reports taking as prescribed; Denies side effects #3. Non-VA Acetaminophen 325mg EVALUATION OF SOCIAL HISTORY: --- TOBACCO USE: Denied. Quit ~30 yrs ago ALCOHOL USE: Socially when at [employer]; 1-2 beers, 1-2x per week CANNABIS USE: Denied. OTHER ILLICIT SUBSTANCES: Denied. RISK MITIGATION: LONG-TERM CONSENT: Reviewed and completed 12/14/23 NALOXONE: Education and dispensing completed 12/14/23 UDS MONITORING: Completed 12/14/23; results salgado negative PDMP: Completed 01/11/24 with issuance of [place] C-SSRS: Completed on 08/24/23 at initial consult DIPHENHYDRAMINE Active and Recently Outpatient Medications (excluding Supplies): Active Outpatient Medications Status 1) ASPIRIN 81MG EC TAB TAKE ONE TABLET BY MOUTH ONCE ACTIVE DAILY TO PREVENT STROKE/HEART ATTACK 2) BUPRENORPHINE 10MCG/HR PATCH APPLY 1 PATCH TO SKIN ACTIVE EVERY 7 DAYS FOR PAIN (REMOVE PATCH BEFORE APPLYING A NEW PATCH) 3) DICLOFENAC EPOLAMINE 1.3% PATCH APPLY 1 PATCH TO SKIN ACTIVE TWICE DAILY NEEDED FOR PAIN 4) PREGABALIN 225MG ORAL CAP TAKE ONE CAPSULE BY MOUTH ACTIVE TWICE DAILY FOR PAIN Inactive Outpatient Medications Status 1) NALOXONE HCL 4MG/SPRAY SOLN NASAL SPRAY INSTILL 1 SPRAY ONE NOSTRIL ONE TIME NEEDED FOR OPIOID OVERDOSE CALL 911 WITH ADMINISTRATION. REPEAT WITH SECOND DEVICE IF SYMPTOMS RETURN Active Non-VA Medications Status 1) Non-VA ACETAMINOPHEN 325MG TAB 1300MG BY MOUTH THREE ACTIVE TIMES DAILY NEEDED 2) Non-VA ALFUZOSIN HCL 10MG SA TAB 10MG BY MOUTH DAILY ACTIVE 3) Non-VA TADALAFIL 5MG TAB 5MG BY MOUTH DAILY ACTIVE 8 Total Medications Active problems - Computerized Problem List is the source for the followin. Hyperlipidemia ([facility] [id number]) 2. Impaired Fasting Glucose ([facility] [id number]) 3. Erectile Dysfunction ([facility] [id number]) 4. Tinnitus 5. Hearing loss 6. Exposure to Potentially Hazardous Substance ([facility] [id number]) 7. Syncope and collapse 8. Low back [...] multiple surgeries to cervical and lumbar spine. [place] also followed by Non-VA providers for chronic pain related interventions. tolerating use of Butrans although without noticeable benefit. Discussed options today including further titration of patch or trialing use of buccal film (Belbuca) for possible improved bioavailability and pain management benefit. [place] was interested in trialing use of Belbuca films. Provided education on proper administration of films. Counseling provided to rinse mouth 60 minutes after film administration and to continue with regular dental care to reduce risk of film residue. [place] demonstrated an understanding of education provided. Will start Belbuca 75mcg BID (total dose 150mcg/day). asks to have prescription sent via mail. His last day of current patch cycle is Sunday; will coordinate with outpatient pharmacy to have prescription mailed overnight from [facility] pharmacy. No other medication changes made today. Will continue pregabalin 225mg BID. asks what are the options if this doesn't work . Reviewed previous education that a multimodal approach to care can help improve outcomes in addition to medication management. may be a candidate for interdisciplinary pain team evaluation. A shared decision-making approach was used in the development of this plan, involving the [place] and clinician present. The was provided the opportunity express questions or concerns, and the plan was adjusted as needed to address these concerns. verbalized understanding of the plan, including possible known risks and benefits, and had no additional questions. PLAN: 1. Start Belbuca 75mcg BID 2. Stop Butrans 10mcg/hr Q7days when Belbuca prescription arrives 3. Continue Pregabalin 225mg BID 4. PDMP queried; result returned as expected F/U via telephone 2 weeks; Pt instructed to contact clinic with any questions or concerns prior to next encounter. Risk mitigation tools: 1. Long-Term Consent for Opioid Therapy completed 12/14/23 2. Naloxone kit prescribing and education on its use and s/sx of OIRD completed 12/14/23 3. UDS monitoring completed 12/14/23 4. PDMP and a State Prescription Drug Monitoring Note completed today Encounter Time: 30 minutes /jac/ TERI MCNAMARA CLINICAL PHARMACIST PRACTITIONER, PAIN Signed: 02/08/2024 13:51 TERI MCNAMARA [facility]
--- OUTSIDE RECORDS SUMMARY | 2024-05-20 08:44 | XMS_ITS ---
Author Name [facility] [place] Organization [facility] [place] Address [address] [place] [address] Care Team Providers Care Exercise Rider Name Role Phone KRISTOPHER MAXWELL Primary Care Provider [facility] Insurance Providers: All historical and [...] PRESCRIPT ION RX730 1 May 28, 2017 [id number] Weston MAK PATIENT CAREMARK PRESCRIPT ION RX730 1 May 28, 2017 [id number] [phone] OBDULIO,Weston MANSOORM PATIENT OPTUM RX PRESCRIPT ION RX May 28, 2022 [id number] [phone] OBDULIO,W ILLIAM PATIENT [facility] PLAN ALLEGRA Rincon May 28, 2017 [id number] [phone] OBDULIO,W ILLIAM PATIENT [facility] HE[facility] PLAN USP May 28, 2017 [facility] [id number] OBDULIO,W ILLIAM PATIENT [facility] (WNR) TRICA RE(WN R) May 28, 2017 (WNR) [id number] OBDULIO,W ILLIAM [facility]) HMO May 28, 2014 [id number] OBDULIO,W ILLIAM PATIENT Selected Encounter This section includes the information on record at [place] for the Encounter. Date/Time Encounter Type Encounter Description Reason Provider Source Jan 11, 2024 09:00 AM MTMS BY TRAY MONET 15 MIN TELEPHONE/STEPHY MICHAEL ICD-10-CM M54.50 Low back pain, unspecified HEMAL MCNAMARA E Encounter Template Text not used by [place] Assessments - Encounter Diagnoses This section includes the primary and secondary diagnoses documented for the Encounter. Date/Time Primary/Secondary Diagnosis Diagnosis Name Provider Source Jan 11, 2024 09:00 AM PRIMARY Low back pain, unspecified HEMAL MCNAMARA [place] [facility] [place] [facility] Plan of Treatment: Future Appointments (+ [...] Appointment Type Appointme nt Facility Name Jan 14, 2024 11:00 AM AMBULATORY - REHAB MEDICIN E [facility] [place] [facility] Feb 08, 2024 08:30 AM AMBULATORY - MEDICINE DE [facility] [place] [place] [facility] Feb 26, 2024 08:30 AM AMBULATORY - MEDICINE DE [facility] [place] [facility] Mar 21, 2024 08:30 AM AMBULATORY - MEDICINE DE [facility] [place] [place] [facility] Apr 22, 2024 08:30 AM AMBULATORY - MEDICINE DE [facility] [place] [place] [facility] May 23, 2024 08:30 AM AMBULATORY - MEDICINE DE [facility] [place] [place] [facility] Jun 05, 2024 10:00 AM AMBULATORY - MEDICINE [place] [facility] [place] [facility] Jun 05, 2024 11:00 AM [facility] Lab Results: +/- 30 days of the encounter This section includes the Chemistry and Hematology Lab Results on record with [place] for the patient. Radiology Reports and Pathology Reports are provided separately, in subsequent sections. Lab Results This section contains the Chemistry/Hematology Results that were resulted 30 days before or 30 daysafter the date of the Encounter. Date/Time Source Result Type Result - Unit Interpretation Reference Range Comment Dec 14, 2023 12:27 PM [facility] METHADONE SCREEN Specimen Type: URINE Comment: DERECK test are qualitative, any L or H flags only indicate a VA alert was sent. Ordering Provider: LACEY MCNAMARA Report Released Date/Time: Dec 14, 2023 11:59 AM Reporting Lab: [facility] [address] [facility] [address] Performing Lab: [facility] [address] [facility] [address] METHADONE SCREEN None detected(Nega tive) L Negative Dec 14, 2023 12:27 PM [facility] ALCOHOL, ETHYL URINE PANEL Specimen [...] Dec 14, 2023 11:59 AM Reporting Lab: [facility] [address] [facility] [address] Performing Lab: [address] [address] ALCOHOL, ETHYL URINE NONE-DETECTED mg/dL NONE-DETEC PENNY, cutoff = 10 mg/dL PH, DERECK 5.8 [pH] 4-10 CREATININE, DERECK 84.74 mg/dL >20 SP.GRAVITY, DERECK 1.011 1.00 3-1.02 0 Dec 14, 2023 12:27 PM [facility] AMPHETAMINES SCREEN PANEL Specimen Type: [...] Dec 14, 2023 11:59 AM Reporting Lab: [address] [address] Performing Lab: [address] [address] AMPHETAMINES SCREEN NONE-DETECTED None-Detec penny, Cutoff = 1000 ng/mL PH, DERECK 5.8 [pH] 4-10 CREATININE, DERECK 84.74 mg/dL >20 SP.GRAVITY, DERECK 1.011 1.00 3-1.02 0 Dec 14, 2023 12:27 PM [facility] FENTANYL SCREEN PANEL Specimen Type: [...] Dec 14, 2023 11:59 AM Reporting Lab: [address] [address] Performing Lab: [address] [address] FENTANYL SCREEN NONE-DETECTE D ng/mL Negative: Cutoff = 1.00 ng/mL PH, DERECK 5.8 [pH] 4-10 CREATININE, DERECK 85.39 mg/dL >20 SP.GRAVITY, DERECK 1.011 1.00 3-1.02 0 Dec 14, 2023 12:27 PM [facility] BUPRENORPHINE SCREEN PANEL Specimen Type: [...] Dec 14, 2023 11:59 AM Reporting Lab: [address] [address] Performing Lab: [address] [address] BUPRENORPHINE (URINE) NONE-DETECTED None Detected, Cutoff = 10.0 ng/mL PH, DERECK 5.8 [pH] 4-10 CREATININE, DERECK 84.74 mg/dL >20 SP.GRAVITY, DERECK 1.011 1.00 3-1.02 0 Dec 14, 2023 12:27 PM [facility] BENZODIAZEPINES SCREEN PANEL Specimen Type: [...] Dec 14, 2023 11:59 AM Reporting Lab: [address] [address] Performing Lab: [address] [address] BENZODIAZEPINES SCREEN NONE-DETECTED None-Detec penny, Cutoff = 200 ng/mL PH, DERECK 5.8 [pH] 4-10 CREATININE, DERECK 84.74 mg/dL >20 SP.GRAVITY, DERECK 1.011 1.00 3-1.02 0 Dec 14, 2023 12:27 PM [facility] CANNABINOIDS SCREEN PANEL Specimen Type: [...] Dec 14, 2023 11:59 AM Reporting Lab: [address] [address] Performing Lab: [address] [address] CANNABINOIDS SCREEN NONE-DETECTED None-Detec penyn,Cutoff = 50 ng/mL PH, DERECK 5.8 [pH] 4-10 CREATININE, DERECK 84.74 mg/dL >20 SP.GRAVITY, DERECK 1.011 1.00 3-1.02 0 Dec 14, 2023 12:27 PM [facility] COCAINE SCREEN PANEL Specimen Type: [...] Dec 14, 2023 11:59 AM Reporting Lab: [address] [address] Performing Lab: [address] [address] COCAINE SCREEN NONE-DETECTED N one-Detec penny,Cutoff = 300 ng/mL PH, DERECK 5.8 [pH] 4-10 CREATININE, DERECK 84.74 mg/dL >20 SP.GRAVITY, DERECK 1.011 1.00 3-1.02 0 Dec 14, 2023 12:27 PM [facility] OPIATES SCREEN PANEL Specimen Type: [...] Dec 14, 2023 11:59 AM Reporting Lab: [address] [address] Performing Lab: [address] [address] OPIATES SCREEN NONE-DETECTED N one-Detec penny, Cutoff = 300 ng/mL PH, DERECK 5.8 [pH] 4-10 CREATININE, DERECK 84.74 mg/dL >20 SP.GRAVITY, DERECK 1.011 1.00 3-1.02 0 Dec 14, 2023 12:27 PM [facility] OXYCODONE SCREEN PANEL Specimen Type: [...] Dec 14, 2023 11:59 AM Reporting Lab: [facility] [address] [facility] [address] Performing Lab: [facility] [address] [facility] [address] OXYCODONE SCREEN NONE-DETECTED None-Detec penny, Cutoff = [...] 02, 2020 ADVANCE DIRECTIVE ZAIRE COMER [place]EN[place]A [place] Encounter Notes: All associated encounter notes This section contains the clinical notes associated to the Encounter. Date/Time Encounter Note(s) Provider Source Jan 11, 2024 09:28 AM ACCOUNTING OF DISC LOSURES NOTE: LOCAL TITLE: STATE PRESCRIPTION DRUG MONITORING PROGRAM STANDARD TITLE: ACCOUNTING OF DISCLOSURES NOTE DATE OF NOTE: JAN 11, 2024@09:28:52 ENTRY DATE: JAN 11, 2024@09:28:52 AUTHOR: HEMAL MCNAMARA EXP COSIGNER: URGENCY: STATUS: COMPLETED This PDMP query was submitted by Hemal Mcnamara. The clinical justification for this PDMP query is to review controlled substances prescribed outside of the [place], and any additional information that may become available, as an important component of standard clinical care, and in accordance with [facility] policy. Patient information was shared with the PDMP Appriss Valera. Prescription(s) filled outside the VA in the last 90 days are noted. However, they do not raise significant safety concerns and do not influence the treatment plan at this time. Fill Date ID Written Drug Qty Days Prescriber Rx # Pharmacy Refill Daily Dose * Pymt Type SURFACE GRINDING MACHINE HAND 12/28/2023 4 12/28/2023 Buprenorphine 7.5 Mcg/hr Patch 2.00 14 Be Zana [id number] [place] (4904) 0/0 0.18 mg /VA [place] 12/21/2023 4 12/14/2023 Pregabalin 225 Mg Capsule 60.00 30 Be Zana [id number] [place] (4904) 0/1 /[place] 12/14/2023 4 12/14/2023 Buprenorphine 5 Mcg/hr Patch 4.00 28 Be Zana [id number] [place] (4904) 0/0 0.12 mg /[place] 12/04/2023 4 12/04/2023 Pregabalin 225 Mg Capsule 60.00 30 Be Zana [id number] [facility] (4904) 0/0 /[place] 10/25/2023 2 10/25/2023 Tramadol Hcl 50 Mg Tablet 15.00 3 Pe Sha [id number] [facility] (1604) 0/0 50.00 MME Comm Ins [place] 10/24/2023 4 10/19/2023 Pregabalin 225 Mg Capsule 60.00 30 Be Zana [id number] [place] (4904) 0/0 /[place] 10/13/2023 2 10/13/2023 Oxycodone Hcl (Ir) 5 Mg Tablet 5.00 2 Rm Art [id number] [facility] (1604) 0/0 18.75 [facility] Comm Ins [place] 10/01/2023 4 09/28/2023 Pregabalin 225 Mg Capsule 60.00 30 Be Zana [id number] [facility] (4904) 0/0 /[place] 09/14/2023 3 09/14/2023 Pregabalin 200 Mg Capsule 28.00 14 Be Zana [id number] [facility] (4904) 0/0 /[place] 09/07/2023 3 09/07/2023 Pregabalin 100 Mg Capsule 42.00 14 Be Zana [id number] [facility] (4904) 0/0 /[place] 08/31/2023 3 08/31/2023 Pregabalin 75 Mg Capsule 42.00 14 Be Zana [id number] [place] (4904) 0/0 /[place] 08/24/2023 3 08/24/2023 Pregabalin 100 Mg Capsule 28.00 14 Be Zana [id number] [place] (4904) 0/0 /[place] 07/26/2023 2 07/26/2023 Oxycodone-Acetaminophen 5-325 40.00 5 Da Kaylen [id number] [facility] (9935) 0/0 60.00 MME Comm Ins [place] 07/13/2023 2 07/13/2023 Oxycodone-Acetaminophen 5-325 40.00 3 Da Kaylen [id number] [facility] (9935) 0/0 100.00 MME [place] Ins [place] 06/13/2023 2 06/12/2023 Gabapentin 600 Mg Tablet 270.00 90 [place] [id number] Bishnu (8260) 0/0 [place] Ins [place] 03/08/2023 1 03/06/2023 Gabapentin 600 Mg Tablet 270.00 90 [place] [id number] Bishnu (8260) 0/0 [place] Ins [place] 11/01/2022 1 07/12/2022 Gabapentin 600 Mg Tablet 270.00 90 [place] [id number] Bishnu (8272) 05/28 [place] 07/25/2022 2 07/12/2022 Gabapentin 600 Mg Tablet 270.00 90 An Sha [id number] Bishnu (8272) 0/1 [place] 05/04/2022 2 05/01/2022 Gabapentin 600 Mg Tablet 270.00 90 [place] [id number] Bishnu (8272) 0/0 [place] 02/06/2022 1 02/02/2022 Gabapentin 600 Mg Tablet 270.00 90 [place] [id number] Bishnu (8272) 0/0 [place] // HEMAL MCNAMARA CLINICAL PHARMACIST PRACTITIONER, PAIN Signed: 01/11/2024 09:29 HEMAL MCNAMARA [facility] [place] [facility] Jan 11, 2024 08:12 AM [facility] NOTE: LOCAL TITLE: PAIN CLINIC NOTE STANDARD TITLE: PAIN MEDICINE OUTPATIENT NOTE DATE OF NOTE: JAN 11, 2024@08:12 ENTRY DATE: JAN 11, 2024@08:12:49 AUTHOR: HEMAL MCNAMARA EXP COSIGNER: URGENCY: STATUS: COMPLETED TEODORA Da Silva is 68 year old WHITE MALE with a history of chronic back pain, who presents via telephone to pharmacy pain management clinic today for focused follow-up appointment. [place] was last seen in clinic on 12/28/23 at which time Butrans was titrated to 7.5mcg/hr. SUBJECTIVE/OBJECTIVE: TEODORA Da Silva reports today he applied first patch of 7.5mcg/hr dose last Sunday (12/31). He has not noticed any changes significant changes in pain presentation since starting the patch. He stills finds he is hunching from back pain around the middle day, this is worsened if he walking around more. He continues to work at both the [employer] and the [employer]. Today is a day off so he plans to visit [facility]. He reports Non-VA Ortho provider found another break on the second knuckle of pinky finger with most recent imaging of left hand. They do not plan to operate again as another surgery would likely cause more damage than benefit. He continue to use plastic cast. ----- PAIN SCREENING: PEG PAIN SCREENING TOOL [...] pain related medication reconciliation was performed. #1. Kostarans 7.5mcg/hr Q7days - denies side effects today including sedation, fatigue, constipation, or localized skin irritation #2. Pregabalin 225mg BID - [place] taking as prescribed #3. Non-VA Acetaminophen 325mg EVALUATION OF SOCIAL HISTORY: ---- TOBACCO USE: Denied. Quit ~30 yrs ago ALCOHOL USE: Socially when at [employer]; 1-2 beers, 1-2x per week CANNABIS USE: Denied. OTHER ILLICIT SUBSTANCES: Denied. RISK MITIGATION: LONG-TERM CONSENT: Reviewed and completed 12/14/23 NALOXONE: Education and dispensing completed 12/14/23 UDS MONITORING: Completed 12/14/23; results salgado negative PDMP: Completed 12/28/23 with issuance of Neeta C-SSRS: Completed on 08/24/23 at initial consult * DIPHENHYDRAMINE Active and Recently Outpatient Medications (excluding Supplies): Active Outpatient Medications Status 1) ASPIRIN 81MG EC TAB TAKE ONE TABLET BY MOUTH ONCE ACTIVE DAILY TO PREVENT STROKE/HEART ATTACK 2) BUPRENORPHINE 7.5MCG/HR PATCH APPLY 1 PATCH TO SKIN ACTIVE [...] is the source for the followin. Hyperlipidemia ([facility] [id number]) 2. Impaired Fasting Glucose ([facility] [id number]) 3. Erectile Dysfunction ([facility] [id number]) 4. Tinnitus 5. Hearing loss 6. Exposure to Potentially Hazardous Substance ([facility] [id number]) 7. Syncope and collapse 8. Low back [...] ASSESSMENT: Mr. Mak is a 68-year-old male [place] with a history of chronic low back pain s/p multiple surgeries to cervical and lumbar spine. also followed by Non-VA providers for chronic pain related interventions. continues to tolerate regimen although likely still at a subtherapeutic dose of Butrans. Noted, in published studies most clinically significant benefits were recorded with use of at least Butrans 10mcg/hr. [place] is in agreement of further titration of patch. Counseled on potential risk vs. benefit of therapy. Will increase to Butrans 10mcg/hr Q7days. Will ask pharmacy to mail overnight from [facility] to help ensure prescription reaches for Sunday. Will continue with close follow-up. Suspect [place] would benefit from referral to PT to address core strength d/t reports guarding from the pain. While [place] agrees, he is unable to dedicate the time to attending sessions d/t busy work schedule. A shared decision-making approach was used in the development of this plan, involving the and clinician present. The [place] was provided the opportunity express questions or concerns, and the plan was adjusted as needed to address these concerns. verbalized understanding of the plan, including possible known risks and benefits, and had no additional questions. PLAN: 1. Start Butrans 10mcg/hr Q7days - PDMP queried; results returned as expected 2. Continue Pregabalin 225mg BID F/U via telephone in 3 weeks; Pt [...] today - Encounter Time: 30 minutes /jac/ HEMAL MCNAMARA CLINICAL PHARMACIST PRACTITIONER, PAIN Signed: 01/11/2024 09:29 HEMAL MCNAMARA DE [facility]
--- OUTSIDE RECORDS SUMMARY | 2024-05-20 08:44 | XMS_ITS | Encounter Summary ---
Author Name [facility] [place] [facility] [place] Address [address] [place] [address] Care Team Providers Care Sheet Sorter Name Role Phone KRISTOPHER MAXWELL Primary [...] PRESCRIPT ION RX730 1 May 28, 2017 [id number] [address] MAK ILLIAM PATIENT CAREMARK PRESCRIPT ION RX730 1 May 28, 2017 [id number] [phone] Weston MAK ILLIAM PATIENT OPTUM RX PRESCRIPT ION RX May 28, 2022 [id number] [id number] [place] MAK ILLIAM PATIENT [facility] May 28, 2017 [facility] [id number] [phone] Weston MAK PATIENT [facility] HEALTH PLAN PATRICIA Rincon May 28, 2017 [id number] [phone] Weston MAK PATIENT [facility] (WNR) TRICA RE(WN R) May 28, 2017 (WNR) [id number] Weston MAK PATIENT [facility] (WNR) HMO May 28, 2014 [id number] Weston MAK PATIENT Selected Encounter This section includes the information on record at [place] for the Encounter. Date/Time Encounter Type Encounter Description Reason Pro vider Source Feb 08, 2024 11:27 AM Outpatient Encounter TELEPHONE/ANCILLARY IHE Encounter Template Text not used by [place] Plan of Treatment: Future Appointments (+ 6 months) and Future Tests (+/- 45 days) The Plan of Treatment section includes future care activities for the patient from all [place] treatmentfacilities. This section includes future appointments and future orders which are active, pending or scheduled. Future Appointments This section includes appointments that were scheduled to occur 6 months from the date of the Encounter, up to a maximum of 20 appointments. The data comes from all [place] treatment facilities. Appointment Date/Time Appointment Type Appointme nt Facility Name Feb 26, 2024 08:30 AM AMBULATORY - MEDICINE [place] [facility] [place] [facility] Mar 21, 2024 08:30 AM AMBULATORY - MEDICINE [place] [facility] [place] [facility] Apr 22, 2024 08:30 AM AMBULATORY - MEDICINE [facility] [place] [facility] May 23, 2024 08:30 AM AMBULATORY - MEDICINE [place] [facility] [place] [facility] Jun 05, 2024 10:00 AM AMBULATORY - MEDICINE [place] [facility] [place] [facility] Jun 05, 2024 11:00 AM [facility] Advance Directives: All historical and current Section Date Range: From patient's date of to the date document was created. This section includes ALL of a patient's completed or amended VA Advance and Rescinded Directives. The entries below indicate that a directive exists for the patient, but an actual copy is not included with this document. The data comes from all [place] facilities. Date Advance Directives Provider Source Dec 02, 2020 ADVANCE DIRECTIVE ZAIRE COMER [facility] IELD Encounter Notes: All associated encounter notes This section contains the clinical notes associated to the Encounter. Date/Time Encounter Note(s) Provider Source Feb 08, 2024 11:28 AM LETTERS: LOCAL TITLE: PATIENT LETTER (B) STANDARD TITLE: LETTERS DATE OF NOTE: FEB 08, 2024@11:28 ENTRY DATE: FEB 08, 2024@11:28:20 AUTHOR: YESSI STONE EXP COSIGNER: URGENCY: STATUS: COMPLETED [facility] Toll Free Number [facility] scheduling can be reached at ext. [phone] [facility]- ext. [phone] [facility]- ext. [phone] [facility]- ext. [phone] FEB 08, 2024 TEODORA MAK [address] [place] [address] Dear TEODORA MAK Thank you for choosing the Department of [facility] Affairs ([place]) Medical [place] as your primary choice for health care. [...] would like to be seen, please contact [place] Call Center at ext. [phone] to schedule an appointment. Thank you for your service to our nation, and we look forward to hearing from you soon. Sincerely, [facility] [address] [facility] [address] [place] [address] [place] [address] [facility] [address] [facility] [address] [place] [address] [place] [address] ext. [phone] [facility] [address] [address] [place] [address] ext. [phone] [facility] [address] [place] [address] ext. [phone] YESSI STONE [facility]TR [facility] [place] [facility] Feb 08, 2024 11:27 AM ADMINISTRATIVE NOTE: LOCAL TITLE: ADMINISTRATIVE RECALL NOTE STANDARD TITLE: ADMINISTRATIVE NOTE DATE OF NOTE: FEB 08, 2024@11:27 ENTRY DATE: FEB 08, 2024@11:27:43 AUTHOR: YESSI STONE COSIGNER: URGENCY: STATUS: COMPLETED RTC orders: Unable to contact patient: Attempts to contact: 1st attempt: Left voicemail 2nd attempt: Letter mailed Disposition on Jan 3rd attempt: 4th attempt: PID 02/22/2024 /jac/ YESSI STONE ADVANCED OPERATIONS DIRECTOR Signed: 02/08/2024 11:28 YESSI STONE [facility]
--- OUTSIDE RECORDS SUMMARY | 2024-05-20 08:44 | XMS_ITS | Encounter Summary ---
Author Name [place] Address [address] [place] [address] Care Team Providers Care Paper Cup Machine Tender Name Role Phone KRISTOPHER MAXWELL Primary Care Provider [facility] Insurance Providers: All historical and current [...] PRESCRIPT ION RX730 1 May 28, 2017 [id number] [phone] OBDULIOWeston DANIELLETAINAM PATIENT CAREMARK PRESCRIPT ION RX730 1 May 28, 2017 [id number] [phone] Weston MAKM PATIENT OPTUM RX PRESCRIPT ION RX May 28, 2022 [id number] [id number] [address] MAK ILLIAM PATIENT [facility] ALLEGRA Rincon May 28, 2017 [id number] Weston MAK PATIENT [facility] HEALTH PLAN USP May 28, 2017 [facility] [id number] Weston MAK PATIENT [facility]) TRICA RE(WN R) May 28, 2017 (WNR) [id number] [address] MAK PATIENT [facility] HEALTHPLAN (WNR) HMO May 28, 2014 [id number] Weston MAK PATIENT Selected Encounter This section includes the information on record at [place] for the Encounter. Date/Time Encounter Type Encounter Description Reason Pro vider Source Feb 25, 2024 10:31 AM Outpatient Encounter TELEPHONE/ANCILLARY IHE Encounter Template Text not used by [place] Plan of Treatment: Future Appointments (+ 6 months) and Future Tests (+/- 45 days) The Plan of Treatment section includes future care activities for the patient from all [place] treatmentfacilities. This section includes future appointments and future orders which are active, pending or scheduled. Future Appointments This section includes appointments that were scheduled to occur 6 months from the date of the Encounter, up to a maximum of 20 appointments. The data comes from all [place] treatment facilities. Appointment Date/Time Appointment Type Appointme nt Facility Name Feb 26, 2024 08:30 AM AMBULATORY - MEDICINE [place] [facility] [place] [facility] Mar 21, 2024 08:30 AM AMBULATORY - MEDICINE [facility] [place] [facility] Apr 22, 2024 08:30 AM AMBULATORY - MEDICINE [facility] [place] [facility] May 23, 2024 08:30 AM AMBULATORY - MEDICINE [facility] [place] [place] [facility] Jun 05, 2024 10:00 AM AMBULATORY - MEDICINE [facility] [place] [facility] Jun 05, 2024 11:00 AM AMBULATORY - REHAB MEDICIN E [facility] [place] [facility] Aug 21, 2024 01:00 PM AMBULATORY - MEDICINE [facility] Advance Directives: All historical and current [...] Dec 02, 2020 ADVANCE DIRECTIVE ZAIRE COMER [place] IELD Encounter Notes: All associated encounter notes This section contains the clinical notes associated to the Encounter. Date/Time Encounter Note(s) Provider Source Feb 25, 2024 10:31 AM TELEPHONE ENCOUNTE R NOTE: LOCAL TITLE: TELEPHONE NOTE/SPECIALTY CLINIC STANDARD TITLE: TELEPHONE ENCOUNTER NOTE DATE OF NOTE: FEB 25, 2024@10:31 ENTRY DATE: FEB 25, 2024@10:31:45 AUTHOR: YESSI STONE COSIGNER: URGENCY: STATUS: COMPLETED Called and spoke with pt to remind them that they have a tele appt with the Pain clinic on 02/26/2024 at 0830. /jac/ YESSI STONE ADVANCED BOX OFFICE AGENT Signed: 02/25/2024 10:32 YESSI STONE [facility]
--- OUTSIDE RECORDS SUMMARY | 2024-05-20 08:44 | XMS_ITS | Encounter Summary ---
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 Labourer Name Role Phone KRISTOPHER MAXWELL Primary Care Provider [facility] brianda Insurance Providers: All historical and current [...] PRESCRIPT ION RX730 1 May 28, 2017 [id number] OBDULI[place] GUYM PATIENT CAREMARK PRESCRIPT ION RX730 1 May 28, 2017 [id number] [phone] [place] MAK DANIELLEIAM PATIENT OPTUM RX PRESCRIPT ION RX May 28, 2022 THPRX [id number] OBDULIOW[place] ILLIAM PATIENT [facility] PLAN ALLEGRA Rincon May 28, 2017 [id number] OBDULIO,W ILLIAM PATIENT [facility] USP May 28, 2017 [facility] [id number] [phone] OBDULIO,W ILLIAM PATIENT [facility] (WNR) TRICA RE(WN R) May 28, 2017 (WNR) [id number] OBDULIO,W ILLIAM PATIENT [facility] (WNR) HMO May 28, 2014 [id number] OBDULIO,W ILLIAM PATIENT Selected Encounter This section includes the information on record at [place] for the Encounter. Date/Time Encounter Type Encounter Description Reason Provider Source Feb 18, 2024 04:47 PM HC PRO PHONE CALL 5-10 MIN TELEPHONE/REHAB AND SUPPORT ICD-10-CM G89.29 Other chronic pain EMET,JACQUI [facility] Encounter Template Text not used by [place] Assessments - Encounter Diagnoses This section includes the primary and secondary diagnoses documented for the Encounter. Date/Time Primary/Secondary Diagnosis Diagnosis Name Provider Source Feb 18, 2024 04:47 PM PRIMARY Other chronic pain EMET,JACQUI [place] [facility] [facility] Plan of Treatment: Future Appointments (+ [...] 26, 2024 08:30 AM AMBULATORY - MEDICINE [place] C [facility] [facility] Mar 21, 2024 08:30 AM AMBULATORY - MEDICINE [place] C [place] [facility] Apr 22, 2024 08:30 AM AMBULATORY - MEDICINE [place] C [place] [facility] May 23, 2024 08:30 AM AMBULATORY - MEDICINE [place] C [place] [facility] Jun 05, 2024 10:00 AM AMBULATORY - MEDICINE [place] C [place] [facility] Jun 05, 2024 11:00 AM AMBULATORY - REHAB MEDICIN E [facility] Advance Directives: All historical and current [...] Encounter. 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 He updated this sql report writer that he may be having shoulder surgery for a rotator cuff injury from a fall at work (10/12/2023). He is involved with Worker's Comp and reports the process has been lengthy. He's hopeful that he will be undergoing shoulder RTC repair with his preferred surgeon soon. He shared that he's interested in additional pain education offerings after his surgery and shared his preference to join in-person when ready. All questions about AMP answered this date. Mr. Mak will contact this sql report writer or alert Dr. Rosenbaum if interested in proceeding with an AMP intake. /jac/ JACQUI SCOTT DPT PHYSICAL THERAPIST Signed: 02/18/2024 16:56 JACQUI SCOTT [facility]
--- OUTSIDE RECORDS SUMMARY | 2024-05-20 08:45 | XMS_ITS ---
Author Name [facility] [place] [facility] [place] Address [address] [place] [address] Care Team Providers Care Dragline Operator Helper Name Role Phone KRISTOPHER MAXWELL Primary [...] PRESCRIPT ION RX730 1 May 28, 2017 [id number] [phone] Weston MAK ILLIAM PATIENT [place] PRESCRIPT ION RX730 1 May 28, 2017 [id number] Weston MAK ILLIAM PATIENT OPTUM RX PRESCRIPT ION RX May 28, 2022 THPRX [id number] [phone] Weston MAK ILLIAM PATIENT [facility] May 28, 2017 [facility] [id number] Weston MAK PATIENT [facility] PATRICIA Rincon May 28, 2017 [id number] [phone] Weston MAK PATIENT [facility] (WNR) TRICA RE(WN R) May 28, 2017 (WNR) [id number] Weston MAK PATIENT [facility] (WNR) HMO May 28, 2014 [id number] Weston AMK PATIENT Selected Encounter This section includes the information on record at [place] for the Encounter. Date/Time Encounter Type Encounter Description Reason Pro vider Source Apr 21, 2024 11:34 AM Outpatient Encounter TELEPHONE/ANCILLARY IHE Encounter Template [...] Date/Time Appointment Type Appointme nt Facility Name Apr 22, 2024 08:30 AM AMBULATORY - MEDICINE [facility] May 23, 2024 08:30 AM [facility] Jun 05, 2024 10:00 AM AMBULAT[facility] Jun 05, 2024 11:00 AM [facility] Aug 21, 2024 01:00 PM AMBULATORY - MEDICINE [facility] 2[facility] Advance Directives: All historical [...] Dec 02, 2020 ADVANCE DIRECTIVE ZAIRE COMER [facility] Encounter Notes: All associated encounter notes This section contains the clinical notes associated to the Encounter. Date/Time Encounter Note(s) Provider Source Apr 21, 2024 11:34 AM TELEPHONE ENCOUNTE R NOTE: LOCAL TITLE: TELEPHONE NOTE/SPECIALTY CLINIC STANDARD TITLE: TELEPHONE ENCOUNTER NOTE DATE OF NOTE: APR 21, 2024@11:34 ENTRY DATE: APR 21, 2024@11:34:32 AUTHOR: LAURA BOOKER EXP COSIGNER: URGENCY: STATUS: COMPLETED Call attempt was made to remind vet they have a tele appt with the Pain clinic on 04/22/2024 at 830. No answer, lvm. /jac/ LAURA BOOKER ADVANCED DIESEL TRAILER MECHANIC Signed: 04/21/2024 11:35 LAURA BOOKER [place] CNTRL W[facility]N [facility]
--- OUTSIDE RECORDS SUMMARY | 2024-05-20 08:45 | XMS_ITS | Encounter Summary ---
Author Name [facility] [place] [facility] [place] Address [address] [place] [address] Care Team Providers Care Zipper Cutter Name Role Phone KRISTOPHER MAXWELL Primary [facility] Insurance Providers: All historical and [...] PRESCRIPT ION RX730 1 May 28, 2017 [id number] OBDULI[place] DANIELLETAINAM PATIENT CAREMARK PRESCRIPT ION RX730 1 May 28, 2017 [id number] [phone] Weston MAKM PATIENT OPTUM RX PRESCRIPT ION RX May 28, 2022 THPRX [id number] [phone] Weston MAK ILLIAM PATIENT [facility] PLAN ALLEGRA Rincon May 28, 2017 [id number] Weston MAK PATIENT [facility] USP May 28, 2017 [facility] [id number] [phone] OBDULIO,W ILLIAKaren PATIENT [facility] (WNR) TRICA RE(WN R) May 28, 2017 (WNR) [id number] [phone] OBDULIOWeston GUYIAKaren PATIENT [facility] (WNR) HMO May 28, 2014 [id number] Weston MAK PATIENT Selected Encounter This section includes the information on record at [place] for the Encounter. Date/Time Encounter Type Encounter Description Reason Pro vider Source Apr 22, 2024 10:37 AM Outpatient Encounter TELEPHONE/ANCILLARY IHE Encounter Template Text not used by [place] Plan of Treatment: Future Appointments (+ 6 [...] Date/Time Appointment Type Appointme nt Facility Name May 23, 2024 08:30 AM AMBULATORY - MEDICINE [facility] Jun 05, 2024 10:00 AM AMBULATORY - MEDICINE [facility] Jun 05, 2024 11:00 AM AMBULATORY - REHAB MEDICIN E [facility] Aug 21, 2024 01:00 PM AMBULATORY - MEDICINE [facility] Advance Directives: All historical and current Section Date Range: From patient's date of to the date document was created. This section includes ALL of a patient's completed or amended [place] Advance and Rescinded Directives. The entries below [...] Encounter. Date/Time Encounter Note(s) Provider Source Apr 22, 2024 10:38 AM LETTERS: LOCAL TITLE: PATIENT LETTER (B) STANDARD TITLE: LETTERS DATE OF NOTE: APR 22, 2024@10:38 ENTRY DATE: APR 22, 2024@10:38:24 AUTHOR: LAURA BOOKER COSIGNER: URGENCY: STATUS: COMPLETED [facility] Toll Free Number ext [phone] [facility] scheduling can be reached at ext. [phone] [facility]- ext. [phone] [facility]- ext. [phone] [facility]- ext. [phone] APR 22, 2024 TEODORA MAK [address] [place] [id number] Dear TEODORA MAK Thank you for choosing the Department of [facility] ([place]) [facility] as your primary choice for health care. [...] would like to be seen, please contact [place] Call Center at ext. [phone] to schedule an appointment. Thank you for your service to our nation, and we look forward to hearing from you soon. Sincerely, [facility] [address] [facility] [address] [place] [address] [place] [address] ext [phone] [facility] [address] [place] [address] [place] [address] ext. [phone] [facility] [address] [facility] [address] [place] [address] [place] [address] ext. [phone] LAURA BOOKER [place] [facility] Apr 22, 2024 10:37 AM ADMINISTRATIVE NOT E: LOCAL TITLE: ADMINISTRATIVE RECALL NOTE STANDARD TITLE: ADMINISTRATIVE NOTE DATE OF NOTE: APR 22, 2024@10:37 ENTRY DATE: APR 22, 2024@10:37:53 AUTHOR: LAURA BOOKER EXP COSIGNER: URGENCY: STATUS: COMPLETED RTC orders: Unable to contact patient: Attempts to contact: 1st attempt: Left voicemail 2nd attempt: Letter mailedDisposition onDec 3rd attempt: 4th attempt: /jac/ LAURA BOOKER ADVANCED PEDIATRIC ONCOLOGIST Signed: 04/22/2024 10:38 LA[facility]A BOOKER [facility]
--- OUTSIDE RECORDS SUMMARY | 2024-05-20 08:45 | XMS_ITS ---
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 Test Engine Mechanic Name Role Phone KRISTOPHER MAXWELL Primary [facility] Provider [facility] Insurance Providers: All historical and current [...] PRESCRIPT ION RX730 1 May 28, 2017 [id number] Weston MAK PATIENT CAREMARK PRESCRIPT ION RX730 1 May 28, 2017 [id number] [phone] OBDULIO,Weston MANSOORM PATIENT OPTUM RX PRESCRIPT ION RX May 28, 2022 THPRX [id number] OBDULIO,W ILLIAM PATIENT [facility] PLAN ALLEGRA Rincon May 28, 2017 [id number] OBDULIO,W ILLIAM PATIENT [facility] USP May 28, 2017 [facility] [id number] OBDULIO,W ILLIAM PATIENT [facility] (WNR) TRICA RE(WN R) May 28, 2017 (WNR) [id number] OBDULIO,W ILLIAM PATIENT [facility] (WNR) HMO May 28, 2014 [id number] OBDULIO,W ILLIAM PATIENT Selected Encounter This section includes the information on record at [place] for the Encounter. Date/Time Encounter Type Encounter Description Reason Provider Source Apr 22, 2024 08:30 AM MTMS BY TRAY MONET 15 MIN TELEPHONE/STEPHY MICHAEL ICD-10-CM M54.50 Low back pain, unspecified TERI MCNAMARA E Encounter Template Text not used by [place] Assessments - Encounter Diagnoses This section includes the primary and secondary diagnoses documented for the Encounter. Date/Time Primary/Secondary Diagnosis Diagnosis Name Provider Source Apr 22, 2024 08:30 AM PRIMARY Low back pain, unspecified TERI MCNAMARA [facility] Plan of Treatment: Future Appointments (+ 6 [...] 23, 2024 08:30 AM AM[facility]ULATORY [facility]IC[facility] Jun 05, 2024 10:00 AM AMBULATORY - MEDICINE [facility] [place] [facility] Jun 05, 2024 11:00 AM AMBULATORY - REHAB MEDICIN E [place] [facility]TR [place] [facility] Aug 21, 2024 01:00 PM [facility] Advance Directives: All historical [...] Encounter Note(s) Provider Source Apr 22, 2024 08:08 AM ACCOUNTING OF DISC LOSURES NOTE: LOCAL TITLE: STATE PRESCRIPTION DRUG MONITORING PROGRAM STANDARD TITLE: ACCOUNTING OF DISCLOSURES NOTE DATE OF NOTE: APR 22, 2024@08:08:35 ENTRY DATE: APR 22, 2024@08:08:35 AUTHOR: TERI MCNAMARA EXP COSIGNER: URGENCY: STATUS: COMPLETED This PDMP query was submitted by Teri Mcnamara. The clinical justification for this PDMP query is to review controlled substances prescribed outside of the [facility], and any additional information that may become available, as an important component of standard clinical care, and in accordance with [facility] policy. Patient information was shared with the PDMP Appriss [place]. No prescription(s) for controlled substances outside the [facility] were found in the last 90 days. /jac/ TERI MCNAMARA CLINICAL PHARMACIST PRACTITIONER, PAIN Signed: 04/22/2024 10:08 TERI MCNAMARA [place] [facility] [place] [facility] Apr 22, 2024 08:02 AM [facility]: LOCAL TITLE: PAIN CLINIC NOTE STANDARD TITLE: PAIN MEDICINE OUTPATIENT NOTE DATE OF NOTE: APR 22, 2024@08:02 ENTRY DATE: APR 22, 2024@08:02:56 AUTHOR: TERI MCNAMARA EXP COSIGNER: URGENCY: STATUS: COMPLETED TEODORA Da Silva is 68 year old WHITE MALE with a history of chronic low back pain, who presents via telephone to pharmacy pain management clinic today for routine follow-up appointment. was last seen in clinic on 03/21/24; no changes made at that appointment. SUBJECTIVE/OBJECTIVE: TEODORA Da Silva reports to do he has been doing fine since last encounter. He states the pain is still there but denies any changes to the quality. He notes the severity of pain is more prevalent now that the weather is getting colder. Most bothersome in lower back. He continues to experience residual pain and tenderness in right wrist and pinky finger as result of fall at work in early Summer. He has been following with Non-VA Orthro providers to monitor the healing progression. ----- EVALUATION OF PAIN RELATED MEDICATIONS: ------ A focused pain related medication reconciliation was performed. 1. 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 Pregabalin 225mg BID - report he has been taking a prescribed. He states he did waited too late to request refill. Only had 1.5 days remaining 3. Non-VA Acetaminophen 325mg PRN - Use not assessed today EVALUATION OF SOCIAL HISTORY: ---- TOBACCO USE: Denied. Quit ~30 yrs ago ALCOHOL USE: Socially when at [employer]; 1-2 beers, 1-2x per week CANNABIS USE: Denied. OTHER ILLICIT SUBSTANCES: Denied. RISK MITIGATION: LONG-TERM CONSENT: Reviewed and completed 12/14/23 NALOXONE: Education and dispensing completed 02/26/24. Somers asks to have second kit [place] ( splits time between home/camp). UDS MONITORING: Completed 12/14/23; results salgado negative PDMP: Completed 03/21/24 with issuance of Belbuca C-SSRS: Completed on 08/24/23 at initial consult PMOP PAIN MEASURES: Pain Intensity, Interference with Enjoyment and General Activity (PEG-3) Date Score 08/24/23 5.6 * DIPHENHYDRAMINE Active and Recently Outpatient Medications (excluding Supplies): Active Outpatient Medications Status 1) ASPIRIN 81MG EC TAB TAKE ONE TABLET BY MOUTH ONCE ACTIVE DAILY TO PREVENT STROKE/HEART ATTACK 2) BUPRENORPHINE 150MCG BUCCAL FILM PLACE ONE FILM ACTIVE BETWEEN [...] is the source for the followin. Hyperlipidemia ([facility] [id number]) 2. Impaired Fasting Glucose ([facility] [id number]) 3. Erectile Dysfunction ([facility] [id number]) 4. Tinnitus 5. Hearing loss 6. Exposure to Potentially Hazardous Substance ([facility] [id number]) 7. Syncope and collapse 8. Low back [...] ASSESSMENT: Mr. Mak is a 68-year-old male Somers with a history of chronic low back pain s/p multiple surgeries to cervical and lumbar spine. Somers also followed by Non-VA providers for chronic pain related interventions. continues to tolerate regimen based on his report. As stated in prior note, is likely on subtherapeutic dose of Belbuca and could benefit from optimization. Discussed this with Somers again today but he would like to defer until after meeting with Pain Management MD on 06/05/24 as he feels he will have more direction after that encounter. Did discuss retrialing use of diclofenac epolamine 1.3% patches as an adjuvant to current regimen for lower back pain. previously trialed use after fall in September but did not find significant benefit with use alone. He was willing to follow this recommendation. He reports having partial supply at home. One refill remaining on original prescription which is still active. No other changes made today. Reminded to be mindful when requesting renewals to allow time for processing and delivery. Contacted outpatient pharmacy who was able to pull prescription from [facility] and fill locally for overnight delivery. A shared decision-making approach was used in the development of this plan, involving the and clinician present. The Somers was provided the opportunity express questions or concerns, and the plan was adjusted as needed to address these concerns. Somers verbalized understanding of the plan, including possible known risks and benefits, and had no additional questions. PLAN: 1. Continue Belbuca 150mcg BID - Refilled for mail today 2. Continue Pregabalin 225mg BID - Outpatient pharmacy will have prescription mailed overnight 3. Somers will retrial use of diclofenac epolamine 1.3% patches BID PRN on low back 4. to be seen by Pain Management MD on 06/05/24 F/U via telephone in 4-6 weeks; Pt instructed to contact clinic with any questions or concerns prior to next encounter. Risk mitigation: 1. Long-Term Consent for Opioid Therapy completed 12/14/23 2. Naloxone kit prescribing and education on its use and s/sx of OIRD completed 02/26/24 3. UDS monitoring completed 12/14/23 4. PDMP and a State Prescription Drug Monitoring Note completed today - Encounter Time: 30 minutes /jac/ TERI MCNAMARA CLINICAL PHARMACIST PRACTITIONER, PAIN Signed: 04/22/2024 10:24 TERI MCNAMARA CN[facility]L [place] [facility]
--- OUTSIDE RECORDS SUMMARY | 2024-05-20 08:45 | XMS_ITS | Encounter Summary ---
Author Name [place] Address [address] [place] [address] Care Team Providers Care Carpet Cleaner Name Role Phone KRISTOPHER MAXWELL Primary Care [...] PRESCRIPT ION RX730 1 May 28, 2017 [id number] [phone] OBDULIO,Weston DARION PATIENT CAR[facility] PRESCRIPT ION RX730 1 May 28, 2017 [id number] [phone] Weston MAK DANIELLETAINAKaren PATIENT OPTUM RX PRESCRIPT ION RX May 28, 2022 THPRX [id number] OBDULIO,Weston MANSOORM PATIENT [facility] May 28, 2017 [facility] [id number] OBDULIOW ILLIAM PATIENT [facility] HEALTH PLAN ALLEGRA Rincon May 28, 2017 [id number] OBDULIO,W ILLIAM PATIENT [facility] (R) TRICA RE(WN R) May 28, 2017 (WNR) [id number] [phone] OBDULIOW ILLIAM [facility] May 28, 2014 [id number] OBDULIO,W ILLIAM PATIENT Selected Encounter This section includes the information on record at [place] for the Encounter. Date/Time Encounter Type Encounter Description Reason Provider Source Mar 21, 2024 08:30 AM MTMS BY TRAY MONET 15 MIN TELEPHONE/STEPHY MICHAEL ICD-10-CM M54.50 Low back pain, unspecified HEMAL MCNAMARA E Encounter Template Text not used by [place] Assessments - Encounter Diagnoses This section includes the primary and secondary diagnoses documented for the Encounter. Date/Time Primary/Secondary Diagnosis Diagnosis Name Provider Source Mar 21, 2024 08:30 AM PRIMARY Low back pain, unspecified HEMAL MCNAMARA [facility] [place] [facility] Plan of Treatment: Future Appointments (+ [...] 22, 2024 08:30 AM AMBULATORY - MEDICINE [place] [facility] May 23, 2024 08:30 AM AMBULATORY - [place]ICINE [place] [facility] Jun 05, 2024 10:00 AM AMBULATORY - MEDICINE [place] [facility] Jun 05, 2024 11:00 AM AMBULATORY - REHAB MEDICIN [place] [facility] Aug 21, 2024 01:00 PM AMBULATORY - MEDICINE [facility] Advance Directives: All historical and current [...] Source Dec 02, 2020 ADVANCE DIRECTIVE ZAIRE COMERKarthikeyan IELD Encounter Notes: All associated encounter notes This section contains the clinical notes associated to the Encounter. Date/Time Encounter Note(s) Provider Source Mar 21, 2024 08:44 AM ACCOUNTING OF DISC LOSURES NOTE: LOCAL TITLE: STATE PRESCRIPTION DRUG MONITORING PROGRAM STANDARD TITLE: ACCOUNTING OF DISCLOSURES NOTE DATE OF NOTE: MAR 21, 2024@08:44:01 ENTRY DATE: MAR 21, 2024@08:44:01 AUTHOR: HEMAL MCNAMARA EXP COSIGNER: URGENCY: STATUS: COMPLETED This PDMP query was submitted by Hemal Mcnamara. The clinical justification for this PDMP query is to review controlled substances prescribed outside of the [facility], and any additional information that may become available, as an important component of standard clinical care, and in accordance with [facility] policy. Patient information was shared with the PDMP Appriss Combs. No prescription(s) for controlled substances outside the [facility] were found in the last 90 days. /jac/ HEMAL MCNAMARA CLINICAL PHARMACIST PRACTITIONER, PAIN Signed: 03/21/2024 08:45 HEMAL MCNAMARA [place] [facility] [facility] Mar 21, 2024 08:06 AM PAIN MEDICINE [facility] NOTE: LOCAL TITLE: PAIN CLINIC NOTE STANDARD TITLE: PAIN MEDICINE OUTPATIENT NOTE DATE OF NOTE: MAR 21, 2024@08:06 ENTRY DATE: MAR 21, 2024@08:07:03 AUTHOR: HEMAL MCNAMARA EXP COSIGNER: URGENCY: STATUS: COMPLETED TEODORA Da Silva is 68 year old WHITE MALE with a history of chronic low back pain, who presents via telephone to pharmacy pain management clinic today for routine follow-up appointment. was last seen in clinic on 02/26/24; Belbuca titrated to 150mcg BID. SUBJECTIVE/OBJECTIVE: TEODORA Da Silva reports today he's surviving . He closed up camp for the winter and has returned home. He saw Non-VA provider in relation to worker's comp claim and reviewed current pain conditions. Per [place]'s report, provider had suggested getting updated imaging after evaluation. However, do to the nature of claim records were not provided to [place]. Back pain remains most bothersome pain; becomes hunched when standing for periods of time. He often shifts around when sitting. ----- EVALUATION OF PAIN RELATED MEDICATIONS: ------ A focused pain related medication reconciliation was performed. 1. Belbuca 150mcg BID - reports feeling 10% relief when not moving - He denies any issues with the films including difficulty with administering or side effects related to use (constipation, fatigue, sedation, irritation of oral mucosa) 2. Pregabalin 225mg BID - confirmed taking as prescribed 3. Non-VA Acetaminophen 325mg EVALUATION OF SOCIAL HISTORY: ---- TOBACCO USE: Denied. Quit ~30 yrs ago ALCOHOL USE: Socially when at [employer]; 1-2 beers, 1-2x per week CANNABIS USE: Denied. OTHER ILLICIT SUBSTANCES: Denied. RISK MITIGATION: LONG-TERM CONSENT: Reviewed and completed 12/14/23 NALOXONE: Education and dispensing completed 02/26/24. [place] asks today to have second kit to keep on hand at his camp site ([place] splits time between home/camp). UDS MONITORING: Completed 12/14/23; results salgado negative PDMP: Completed 02/26/24 with issuance of Belbuca C-SSRS: Completed on [...] is the source for the followin. Hyperlipidemia ([facility] [id number]) 2. Impaired Fasting Glucose ([facility] [id number]) 3. Erectile Dysfunction ([facility] [id number]) 4. Tinnitus 5. Hearing loss 6. Exposure to Potentially Hazardous Substance ([facility] [id number]) 7. Syncope and collapse 8. Low back [...] multiple surgeries to cervical and lumbar spine. [place] also followed by Non-VA providers for chronic pain related interventions. Based on presentation today, [place] appears to be finding more benefit with current use of Belbuca 150mcg vs previous dose or use of Butrans patch. However, benefit still minimal. Per report he is tolerating current regimen. Given the reported recommendation to obtain updated imagining it would be appropriate to refer to physician provider for additional evaluation and consideration of this recommendation. states he would be willing to meet with physician from Pain Clinic. Will discuss 's case at upcoming pain team meeting prior to entering RTC. In the meantime, discussed pharmacologic options for pain management including continued titration of Belbuca. Used shared- decision making to agree to defer medication adjustments at this time to allow for further evaluation of the pain generator. A shared decision-making approach was used in the development of this plan, involving the [place] and clinician present. The [place] was provided the opportunity express questions or concerns, and the plan was adjusted as needed to address these concerns. [place] verbalized understanding of the plan, including possible known risks and benefits, and had no additional questions. PLAN: 1. Continue Belbuca 150mcg BID - Prescription renewed today 2. Continue Pregabalin 225mg BID - [place] is aware he has one refill remaining on prescription 3. PDMP queried; results returned as expected 4. Will plan to discuss [place]'s case at upcoming pain team meeting F/U via TC in 4 weeks; Pt instructed to contact [...] completed today - Encounter Time: 30 minutes /ajc/ HEMAL MCNAMARA CLINICAL PHARMACIST PRACTITIONER, PAIN Signed: 03/21/2024 14:24 HEMAL MCNAMARA [place] [facility] [place] [facility]
--- OUTSIDE RECORDS SUMMARY | 2024-05-20 08:45 | XMS_ITS | Encounter Summary ---
Author Name [facility] [place] Address [address] [place] [address] Care Team Providers Care Paving Stone Installer Name Role Phone KRISTOPHER MAXWELL Primary [...] PRESCRIPT ION RX730 1 May 28, 2017 [id number] OBDULIOWeston DANIELLETAINAM PATIENT [facility] PRESCRIPT ION RX730 1 May 28, 2017 [id number] [phone] Weston MAKM PATIENT OPTUM RX PRESCRIPT ION RX May 28, 2022 THPRX [id number] Weston MAK ILLIAM PATIENT [facility] PLAN ALLEGRA Rincon May 28, 2017 [id number] Weston MAK PATIENT [facility] HEALTH PLAN USP May 28, 2017 [facility] [id number] Weston MAK PATIENT [facility] (WNR) TRICA RE(WN R) May 28, 2017 (WNR) [id number] [phone] Weston MAK PATIENT [facility] HEALTHPLAN (WNR) HMO May 28, 2014 [id number] Weston MAK PATIENT Selected Encounter This section includes the information on record at [place] for the Encounter. Date/Time Encounter Type Encounter Description Reason Pro vider Source Mar 20, 2024 08:23 AM Outpatient Encounter TELEPHONE/ANCILLARY IHE Encounter Template [...] 21, 2024 08:30 AM AMBULATORY - MEDICINE [place] [facility] Apr 22, 2024 08:30 AM AMBULATORY - MEDICINE [facility] [place] [facility] May 23, 2024 08:30 AM AMBULATORY - MEDICINE [place] [facility] Jun 05, 2024 10:00 AM AMBULATORY - MEDICINE [place] [facility] Jun 05, 2024 11:00 AM [facility] [place] [facility] Aug 21, 2024 01:00 PM AMBULATORY - MEDICINE [facility] Advance Directives: All historical and current [...] Dec 02, 2020 ADVANCE DIRECTIVE ZAIRE COMER [facility] IELD Encounter Notes: All associated encounter notes This section contains the clinical notes associated to the Encounter. Date/Time Encounter Note(s) Provider Source Mar 20, 2024 08:23 AM TELEPHONE ENCOUNTE R NOTE: LOCAL TITLE: TELEPHONE NOTE/SPECIALTY CLINIC STANDARD TITLE: TELEPHONE ENCOUNTER NOTE DATE OF NOTE: MAR 20, 2024@08:23 ENTRY DATE: MAR 20, 2024@08:23:57 AUTHOR: YESSI STONE COSIGNER: URGENCY: STATUS: COMPLETED Call attempt was made to remind vet they have a tele appt with the Pain clinic on 03/21/2024 at 0830. No answer, lvm. /jac/ YESSI STONE ADVANCED CO SUPERVISOR GROUNDS AND LANDSCAPE Signed: 03/20/2024 08:24 YESSI STONE CNTRL [facility]
--- OUTSIDE RECORDS SUMMARY | 2024-05-20 08:45 | XMS_ITS ---
Author Name [facility] [place] [facility] [place] Address [address] [place] [address] Care Team Providers Care Vegetable Buncher Name Role Phone KRISTOPHER MAXWELL Primary Care Provider Eileen lamar Insurance Providers: All historical and current [...] PRESCRIPT ION RX730 1 May 28, 2017 [id number] [phone] OBDULIO,Weston DARION PATIENT [facility] PRESCRIPT ION RX730 1 May 28, 2017 [id number] Weston MAK DANIELLETAINAM PATIENT OPTUM RX PRESCRIPT ION RX May 28, 2022 THPRX [id number] [phone] Weston MAK ILLIAM PATIENT [facility] HEALTH PLAN ALLEGRA Lamar May 28, 2017 [id number] OBDULIOW ILLIAKaren PATIENT [facility] USP May 28, 2017 [facility] [id number] [phone] OBDULIO,W ILLIAM PATIENT [facility] (WNR) TRICA RE(WN R) May 28, 2017 (WNR) [id number] OBDULIO,W ILLIAKaren PATIENT [facility] HEALTHPLAN (WNR) HMO May 28, 2014 [id number] [phone] OBDULIOWeston GUY PATIENT Selected Encounter This section includes the information on record at [place] for the Encounter. Date/Time Encounter Type Encounter Description Reason Pro vider Source Apr 18, 2024 11:51 AM Outpatient Encounter TELEPHONE/REHAB AND SUPPORT IHE Encounter Template Text not used by [...] 22, 2024 08:30 AM AMBULATORY - MEDICINE [facility] May 23, 2024 08:30 AM AMBULATORY - MEDICINE [place] [facility] Jun 05, 2024 10:00 AM AMBULATORY - MEDICINE [place] [facility] Jun 05, 2024 11:00 AM AMBULATORY - REHAB MEDICIN [place] [facility] [place] [facility] Aug 21, 2024 01:00 PM [facility]ULAT[facility]ICINE [facility] Advance Directives: All historical and current [...] DIRECTIVE ZAIRE COMER [facility] IELD Encounter Notes: All associated encounter notes This section contains the clinical notes associated to the Encounter. Date/Time Encounter Note(s) Provider Source Apr 18, 2024 11:52 AM AUDIOLOGY ADMINIST RATIVE NOTE: LOCAL TITLE: AUDIOLOGY DEVICE DAMAGED LOSS NOTE STANDARD TITLE: AUDIOLOGY ADMINISTRATIVE NOTE DATE OF NOTE: APR 18, 2024@11:52 ENTRY DATE: APR 18, 2024@11:52:07 AUTHOR: JACOBO CRUZ EXP COSIGNER: URGENCY: STATUS: COMPLETED AUDIOLOGY DEVICE DAMAGED LOSS NOTE Has ADDENDA called stating he lost his RIGHT hearing aid about a month ago. unable to find it anywhere. discussed the 1 time replacement policy. would like it replaced. warranty expires 07/10/26 has an appt in audio on 06/05/24 at 11am and states he can pick it up then. /jac/ JACOBO CRUZ LEAD DIRECTOR OF LEADERSHIP DEVELOPMENT Signed: 04/18/2024 11:53 Receipt Acknowledged By: 04/18/2024 16:57 /ALISA Cotto, CCC-A STAFF MEDICINE WORKER 04/18/2024 ADDENDUM STATUS: COMPLETED A L+D replacement right aid and new right earmold were ordered in [facility] today. They will be issued to the at his upcoming audiology appt on 06/05/24. /ALISA Cotto, CCC-A STAFF MEDICINE WORKER Signed: 04/18/2024 16:58 04/28/2024 ADDENDUM STATUS: COMPLETED Replacement right hearing aid and earmold received and certified, placed in garcias cabinet for upcoming appointment. /jac/ JOSÉ CASTELLANO Audiology Health Income Tax Consultant Signed: 04/28/2024 11:36 JACOBO CRUZ [place] [facility] [facility]
--- OUTSIDE RECORDS SUMMARY | 2024-05-20 08:46 | XMS_ITS | Data Portability ---
Author Organization [place] [facility] [place] Address [address] [place] [address] Care Team Providers Care Substance Addiction Coordinator Name Role Phone TRA FAJARDO Primary Care Provider Assessment Encounter Date Assessment Date Assessment LastModified by Organization Details LastModified Time 09/05/2022 09/05/2022 Mr. Hernandez continues to do very well after undergoing right total knee replacement surgery on September 20, 2015. He will continue with his home exercise program. He does know to take antibiotics before any dental work. He will contact me prior to his annual follow-up appointment should any questions or concerns arise. tamara Not available 09/05/2022 10:03:05 Plan of Treatment Reminders Order Date Submit Date Provider Last Modified By Organization Details Last Modified Time Details Appointments None record ed. Lab None record ed. Referral None record ed. Procedures None record ed. Surgeries None record ed. Imaging XR, knee, 1 or 2 view 023 09/06/19 23 tamara [facility], [address], [address], [place], [address], 3 11:57:26 Medication Orders None record ed. Patient TargetsNo targets recorded. Patient InstructionsNo instructions recorded. Reason for Referral None Reported. Procedures Surgical History Date Name Laterality Status Provider Name and Address Organization Details Recorded Time Total knee arthroplasty completed Ela Ocampo [facility], 09/05/2022 09:24:29 surgical procedure on cervical spine completed Ela Ocampo [facility] 09/05/2022 09:24:41 operation on lumbar spine completed Ela Ocampo [facility] 09/05/2022 09:24:52 Imaging Results None recorded. Procedure Notes None recorded. Medical Equipment None Reported. Allergies No known drug allergies Medications Name Sig Start Date Stop Date Status Note LastModified by Organization Details LastModified Time amoxicillin 500 mg capsule TAKE 4 CAPSULES BY MOUTH 1 HOUR PRIOR TO DENTAL WORK active Not Available Not Available No t Available oxybutynin chloride ER 15 mg tablet,extende d release 24 hr active Not Available Not Available Not Available gabapentin 600 mg tablet active Not Available Not Available No t Available tolterodine ER 4 mg capsule,extend ed release 24 hr active Not Available Not Available Not Available betamethasone, augmented 0.05 % topical cream active Not Available Not Available Not Available sulindac 150 mg tablet TAKE 1 TABLET BY MOUTH TWICE A DAY WITH FOOD active Not Available Not Available No t Available meloxicam 7.5 mg tablet active Not Available Not Available No t Available betamethasone dipropionate 0.05 % topical cream active Not Available Not Available Not Available omeprazole 20 mg capsule,delaye d release active Not Available Not Available No t Available ketoconazole 2 % topical cream active Not Available Not Available Not Available alfuzosin ER 10 mg tablet,extende d release 24 hr active Not Available Not Available Not Available tadalafil 5 mg tablet active Not Available Not Available Not Available diclofenac 1 % topical gel active Not Available Not Available Not Available Vitals Date Recorded Body height Body mass index (BMI) Body weight Provider Name and Address Organization Details Last Updated DateTime 09/05/2022 182.88 cm 33.9 kg/m2 157515.[address] [facility] 09/05/2022 09:24:01 Social History None recorded. Functional Status None recorded. Mental Status None recorded. Family History Relationship Description Onset Age of this Age Resolved Age Notes LastModified by Organization Details LastModified Time Mother Family history of malignant neoplasm [email or web address] Not available 2022 09:25:07 Medical History Condition Response Bleeding Disorder Y Past Encounters Encounter ID Performer Location Encounter Start Date Encounter Closed Date Diagnosis/Indication Diagnosis SNOMED-CT Code Diagnosis ICD10 Code 4704 MD [place] [facility] [address] [facility] [place] [address] 09/05/2022 09:07:56 09/05/2022 10:09:21 Pain of right knee joint 4289192718 84153 M25.561 Health Concerns Section Related Observation LastModified by Organization Detai ls LastModified Time None Recorded Concern Status LastModified by Organization Details LastModified Time None Recorded Advance Directives Directive None Recorded Payers Encounter Date Sequence Insurance Name Policy Number Policy Lee Covered Member ID Lee Member ID Guarantor Name 09/05/2022 1 [facility] [employer] (POS) [id number] Aris Hernandez [id number] Aris Hernandez Notes Date Note Type Note Provider Name and Address Organization Details Recorded Time 09/05/2022 text/html The patient presents with complaints of mild intermittent discomfort in his right knee after undergoing right total knee replacement surgery on September 20, 2015. He denies any fevers or chills. He does not take any medicines for his discomfort. He continues with his home exercise program. Victorino De La Cruz MD [address] [place] [address], [id number], [place] [facility], 09/05/2022 10:03:18
[2024-05-20 09:23] VITALS: BP 120/80; PULSE 54; O2SAT 97
--- NOTE | 2024-05-20 09:23 | AM.OFFWIN_ITS ---
Intake Vital Signs 05/20/24 09:23 Weight 274 lb BP 120/80 Blood Pressure Location Rt brachial Position Sitting Pulse 54 Pulse Source Pulse Oximeter Pulse Oximetry (%) 97 Oxygen Delivery Method Room Air Intake Visit Reasons: EP-lt hand mid finger cyst/pain Intake Note: Patient here for bump on middle finger on left hand that has been present for since thanksgi. Patient Tobacco Use Status: Former Tobacco user Allergies No Known Allergies Allergy (Verified 05/20/24 09:37) Medication List - Last Reconciled 05/20/24 by Fadi Steele MD acetaminophen ER 1,300 mg PO Q8H alfuzosin ER 10 mg PO BEDTIME aspirin 81 mg PO DAILY buprenorphine HCl 75 mcg buccal Q12H oikgmhntnzsl-ungdtdcqhqw-iireq 1,000-200 mcg 1 tab PO DAILY diclofenac sodium 1% 1 ea topical BID fluocinonide 0.05% 1 appl topical BID meloxicam submicronized 10 mg PO QAM omeprazole 20 mg PO QAM 90 days oxybutynin chloride ER 20 mg PO QAM sulfamethoxazole-trimethoprim 800-160 mg (Bactrim DS) 1 tab PO BID 7 days tadalafil 5 mg PO QAM tolterodine ER 4 mg PO QAM Do you need a note to return to daycare/school/sports/work: No HPI EP-lt hand mid finger cyst/pain HPI Details 69 yr old male presents to the office fo r a sick visit. Pain in the left hand, middle finger. Sx started a month ago, after trauma. Fluid discharge [facility] Medical History Hematoma Pre-diabetes Hearing loss Diverticulosis Lumbar stenosis Syncope Osteoarthritis BPH (benign prostatic hyperplasia) Heart abnormality GERD (gastroesophageal reflux disease) Anemia Surgical History History of evacuation of hematoma History of ankle surgery Hx of excision of mass History of decompression of ulnar nerve History of surgery on wrist Hx of total knee replacement Hx of spinal surgery Hx of gastric bypass Hx of shoulder surgery Hx of neck surgery Hx of cataract surgery Hx of colonoscopy History of esophagogastroduodenoscopy (EGD) Family History Mother Intestinal cancer Sister Substance use disorder Social History (Updated 12/05/24 @ 15:03 by Jackie Conner) Household Members: Spouse 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:: , 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 Are you a primary pulmonary care nurse to a significant other at home: No Do you presently have visiting nurse or other home services: No Alcohol intake: current Alcohol intake frequency: a few times a week Patient Tobacco Use Status: Former Tobacco user Years Smoked: 10 e-Cigarette/Vaping Use: Never Used service: Yes Current occupational status: employed 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, 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 Cognitive needs: No Hearing needs: No Vision needs: Yes Physical Exam Vital Signs: Last Vital Signs Pulse 54 05/20/24 09:23 BP 120/80 05/20/24 09:23 Pulse Ox 97 05/20/24 09:23 Oxygen Delivery Method Room Air 05/20/24 09:23 Extrem Other: Left hand: Middle finger: cyst on the base of the nail, erythematous, mildly fluctuant Assessment & Plan Assessment & Plan (1) Cellulitis, finger: Code(s): L03.019 - Cellulitis of unspecified finger Plan: Antibiotic and antiinflammatory called in. If sx not better, to follow up here. Medications: New meloxicam submicronized 10 mg PO QAM 7 caps 0RF sulfamethoxazole-trimethoprim 800-160 mg (Bactrim DS) 1 tab PO BID 14 tabs 0RF 7 days Coding Level of Care Code Est Pt Level 3 (60012) Diagnoses Cellulitis, finger L03.019
== END 2024-05-20 09:56 | disposition home or self-care (01) ==
PROVIDERS: PCP Internal Medicine; Visit Provider Internal Medicine
DX: L03.019 Cellulitis of unspecified finger (principal)

== ENCOUNTER → 2024-05-20 08:35 | Outpatient (BNVA) | payer OTHER, SELFPAY | PROVIDERS: PCP Internal Medicine; Visit Provider Internal Medicine | DX: L03.012 Cellulitis of left finger (principal) | CPT/HCPCS: 99212 ==

== ENCOUNTER 2024-06-18 13:40 | Outpatient (AMB) | payer OTHER, SELFPAY ==
[2024-06-18 13:49] VITALS: BMI 37.2
--- NOTE | 2024-06-18 13:49 | MHC.OFFVIS ---
Vital Signs 06/18/24 13:49 Height 6 ft Weight 274 lb BMI 37.2 Intake Visit Reasons: OV- Right shoulder, Last inj Intake Note: Aris is a 69 year old male who presents with complaints of mild intermittent discomfort in his right shoulder. The patient was given a cortisone injection into his right shoulder at his last visit. He states that he got temporary relief from that injection. He continues with his home stretching program. Allergies No Known Allergies Allergy (Verified 06/18/24 13:50) Medication List - Last Reconciled 06/18/24 by Victorino De La Cruz MD acetaminophen ER 1,300 mg PO Q8H alfuzosin ER 10 mg PO BEDTIME aspirin 81 mg PO DAILY buprenorphine HCl 75 mcg buccal Q12H [id number] 1,000-200 mcg 1 tab PO DAILY diclofenac sodium 1% 1 ea topical BID fluocinonide 0.05% 1 appl topical BID meloxicam submicronized 10 mg PO QAM omeprazole 20 mg PO QAM 90 days oxybutynin chloride ER 20 mg PO QAM tadalafil 5 mg PO QAM tolterodine ER 4 mg PO QAM PFSH Medical History Hematoma Pre-diabetes Hearing loss Diverticulosis Lumbar stenosis Syncope Osteoarthritis BPH (benign prostatic hyperplasia) Heart abnormality GERD (gastroesophageal reflux disease) Anemia Surgical History History of evacuation of hematoma History of ankle surgery Hx of excision of mass History of decompression of ulnar nerve History of surgery on wrist Hx of total knee replacement Hx of spinal surgery Hx of gastric bypass Hx of shoulder surgery Hx of neck surgery Hx of cataract surgery Hx of colonoscopy History of esophagogastroduodenoscopy (EGD) Family History Mother Intestinal cancer Sister Substance use disorder Social History (Updated 05/01/24 @ 15:03 by Jackie Conner) Household Members: Spouse 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:: , 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 Are you a primary career development director to a significant other at home: No Do you presently have visiting nurse or other home services: No Alcohol intake: current Alcohol intake frequency: a few times a week Patient Tobacco Use Status: Former Tobacco user Years Smoked: 10 e-Cigarette/Vaping Use: Never Used service: Yes Current occupational status: employed 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, 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 Cognitive needs: No Hearing needs: No Vision needs: Yes Physical Exam Vital Signs: BMI result Body Mass Index 37.2 Const Other: Well-nourished well-developed very friendly male awake alert and oriented x3 in no acute distress Extrem Other: Bilateral upper extremity examination shows good capillary refill, no skin lesions noted, normal sensation light touch Right shoulder examination shows slightly decreased range of motion when compared to his left shoulder, 4+ out of 5 strength with supraspinatus testing, positive impingement signs, no instability Assessment & Plan Assessment & Plan (1) Right shoulder pain: Code(s): M25.511 - Pain in right shoulder Category: Medical Plan Aris presents with right shoulder pain due to impingement syndrome. I had a lengthy discussion with the patient regarding the treatment options. We will hold off on another cortisone injection at this time. He will continue with his range of motion exercises. He will contact me prior to his follow-up appointment in 3 months should his symptoms worsen in any way. Feel free to call me at any time should questions regarding his orthopedic management arise. I spent 20 minutes in reviewing the patient's records and imaging studies, seeing the patient and documenting in the medical record. Orders: Orders XR knee RT 3V 09/17/24 M25.561 - Pain in right knee Coding Level of Care Code Est Pt Level 3 (02043) Complex EM visit Add On G2211 Diagnoses Right shoulder pain M25.511
--- OUTSIDE RECORDS SUMMARY | 2024-06-18 15:49 | XMS_ITS | Continuity of Care Document ---
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 Name Role Phone [facility] Unavailable Unavailable Problems Combined list of problems [...] [facility] [place] [facility] Erectile Dysfunction (SCT [id number]) Active Condition [place] Exposure to Potentially Hazardous Substance (SCT [id number]) Active Condition Jul 11 Entered By: VIANEY SAMUEL Comment: ARSENIO screen 02/13/2023 Asbestos and noise [facility] Hearing loss Active Condition [place] History of bypass of stomach Active [...] [facility] Hyperlipidemia (SCT 29832268) Active Condition [place] 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 [place] Impingement syndrome of right shoulder region Active Condition [facility] Low back pain Active Condition [facility] Syncope and collapse Active Condition [facility] Tinea Active Condition [facility] Tinnitus Active Condition [place] Ulnar neuritis Active Condition [facility] Diagnosis: ICD-10-CM Z46.1 Encounter for fitting and adjustment of hearing aid Active Diagnosis [facility] Diagnosis: ICD-10-CM M54.50 Low back pain, unspecified Active Diagnosis [facility] Diagnosis: ICD-10-CM G89.29 Other chronic pain Active Diagnosis [facility] Diagnosis: ICD-10-CM Z23 Encounter for immunization Active Diagnosis [facility] Diagnosis: ICD-10-CM L84 Corns and callosities Active Diagnosis [place] Diagnosis: ICD-10-CM E78.5 Hyperlipidemia, unspecified Active Diagnosis [place] Diagnosis: ICD-10-CM Z02.89 Encounter for other administrative examinations Active Diagnosis [facility] [place] Diagnosis: ICD-10-CM H90.3 Sensorineural hearing loss, bilateral Active Diagnosis [facility] Medications Combined list of [...] DAY NEEDED ORAL ACTIVE [place]O [place] 2021 [facility] IELD ALFUZOSIN HCL 10MG TAB,SA TAKE ONE TABLET BY MOUTH DAILY ORAL ACTIVE [place]O [place] IELD ASPIRIN 81MG TAB,EC TAKE ONE TABLET BY MOUTH ONCE DAILY TO PREVENT STROKE/H EART ATTACK ORAL ACTIVE 08/17/2024 [id number] MARYAM SMALL 2023 120 [facility] IELD ASPIRIN EC (U/D) 81 MG ORAL TBEC TAKE ONE TABLET BY MOUTH ONCE DAILY TO PREVENT STROKE/H EART ATTACK Active 08/17/2024 [id number] LOKESH SMALL 2023 120 [facility] [place] 10MCG/HR PATCH APPLY 1 PATCH TO SKIN EVERY 7 DAYS FOR PAIN (REMOVE PATCH BEFORE APPLYING A NEW PATCH) TRANSD ERMAL DISCONT INUED BY PROVIDE R 02/10/2024 [id number] 4 ANDERS,BE THANY S 2023 4 [facility] [place] 150MCG FILM,BUCCAL PLACE ONE FILM BETWEEN CHEEK AND GUM UNTIL DISSOLVE D EVERY 12 HOURS FOR PAIN BUCCAL DISCONT INUED (EDIT) 11/23/2024 [id number] 4 ANDERS,BE THANY S 2023 60 [facility] [place] 150MCG FILM,BUCCAL PLACE ONE FILM BETWEEN CHEEK AND GUM UNTIL DISSOLVE D EVERY 12 HOURS FOR PAIN BUCCAL DISCONT INUED 09/21/2024 [id number] 4 ANDERS,BE THANY S 2023 60 [facility] [place] 150MCG FILM,BUCCAL PLACE ONE FILM BETWEEN CHEEK AND GUM UNTIL DISSOLVE D EVERY 12 HOURS FOR PAIN BUCCAL DISCONT INUED 03/27/2024 [id number] 4 ANDERS,BE THANY S 2023 60 [facility] [place] 300MCG FILM,BUCCAL PLACE ONE FILM BETWEEN CHEEK AND GUM UNTIL DISSOLVE D EVERY 12 HOURS FOR PAIN BUCCAL ACTIVE 12/06/2024 [id number] SURAJ CURTIS S 2024 60 [facility] [place] 5MCG/HR PATCH APPLY 1 PATCH TO SKIN EVERY 7 DAYS FOR PAIN (REMOVE PATCH BEFORE APPLYING A NEW PATCH) TRANSD ERMAL DISCONT INUED (EDIT) 01/13/2024 [id number] 4 ANDERS,BE THANY S 2023 4 [facility] [place] 7.5MCG/HR PATCH APPLY 1 PATCH TO SKIN EVERY 7 DAYS FOR PAIN (REMOVE PATCH BEFORE APPLYING A NEW PATCH) TRANSD ERMAL DISCONT INUED (EDIT) 01/27/2024 [id number] 4 ANDERS,BE THANY S 2023 2 [facility] [place] 75MCG FILM,BUCCAL PLACE ONE FILM BETWEEN CHEEK AND GUM UNTIL DISSOLVE D EVERY 12 HOURS FOR PAIN BUCCAL DISCONT INUED (EDIT) 03/09/2024 [id number] 4 ANDERS,BE THANY S 2023 60 [facility] DICLOFENAC EPOLAMINE (EQV-FLECTO R) 1.3% PATCH APPLY 1 PATCH TO SKIN TWICE DAILY NEEDED FOR PAIN TRANSD ERMAL ACTIVE 10/19/2024 [id number] 4 ANDERS,BE THANY S 2023 60 [facility] Diclofenac Epolamine (Flector Eq.) Transdermal System 1.3%/Patch Transdermal APPLY 1 PATCH TO SKIN TWICE DAILY NEEDED FOR PAIN Active 10/19/2024 [id number] 4 HEMAL MCNAMARA 2023 60 [facility] Lidocaine (Madyson-Max Eq.) Cream 4% Topical APPLY A SMALL AMOUNT TOPICALL Y TWICE DAILY FOR PAIN 10/28/2023 [id number] HEMAL MCNAMARA 2023 90 [facility] LIDOCAINE 4% CREAM,TOP APPLY A SMALL AMOUNT TOPICALL Y TWICE DAILY FOR PAIN TOPICA L 10/28/2023 [id number] 4 MARILYN MCNAMARA S 2023 90 [facility] NALOXONE HCL 4MG/SPRAY SOLN,SPRAY, NASAL INSTILL 1 SPRAY ONE NOSTRIL ONE TIME NEEDED FOR OPIOID OVERDOSE CALL 911 WITH ADMINIST RATION. REPEAT WITH SECOND DEVICE IF SYMPTOMS RETURN NASAL ACTIVE 07/05/2024 [id number] SURAJ CURTIS S 2024 2 [facility] NALOXONE HCL 4MG/SPRAY SOLN,SPRAY, NASAL INSTILL 1 SPRAY ONE NOSTRIL ONE TIME NEEDED FOR OPIOID OVERDOSE CALL 911 WITH ADMINIST RATION. REPEAT WITH SECOND DEVICE IF SYMPTOMS RETURN NASAL DISCONT INUED 03/27/2024 [id number] 4 MARILYN MCNAMARA S 2023 2 [facility] NALOXONE HCL 4MG/SPRAY SOLN,SPRAY, NASAL INSTILL 1 SPRAY ONE NOSTRIL ONE TIME NEEDED FOR OPIOID OVERDOSE CALL 911 WITH ADMINIST RATION. REPEAT WITH SECOND DEVICE IF SYMPTOMS RETURN NASAL 01/13/2024 [id number] 4 MARILYN MCNAMARA S 2023 2 [facility] Pregabalin (Lyrica) Capsule Conventiona l 100 mg Oral TAKE ONE CAPSULE BY MOUTH THREE TIMES A DAY FOR PAIN ; THIS REPLACES GABAPENT IN Discont inued 10/07/2023 [id number] 4 HEMAL MCNAMARA S 2023 42 [facility] Pregabalin (Lyrica) Capsule Conventiona l 100 mg Oral TAKE ONE CAPSULE BY MOUTH TWICE DAILY ; THIS REPLACES GABAPENT IN Discont inued 09/23/2023 [id number] 4 HEMAL MCNAMARA S 2023 28 [facility] PREGABALIN (U/D) 75 MG ORAL CAP TAKE ONE CAPSULE BY MOUTH THREE TIMES A DAY ; THIS REPLACES GABAPENT IN Discont inued 09/30/2023 [id number] 4 HEMAL MCNAMARA S 2023 42 [place] [facility] PREGABALIN 100MG CAP,ORAL TAKE ONE CAPSULE BY MOUTH THREE TIMES A DAY FOR PAIN ; THIS REPLACES GABAPENT IN ORAL DISCONT INUED (EDIT) 10/07/2023 [id number] 4 MARILYN MCNAMARA S 2023 42 [facility] PREGABAL[facility] 100MG CAP,ORAL TAKE ONE CAPSULE BY MOUTH TWICE DAILY ; THIS REPLACES GABAPENT IN ORAL DISCONT INUED (EDIT) 09/23/2023 [id number] 4 MARILYN MCNAMARA S 2023 28 [facility] [place] PREGABALIN 200 MG ORAL CAP TAKE ONE CAPSULE BY MOUTH TWICE DAILY ; THIS REPLACES GABAPENT IN Discont inued 10/14/2023 [id number] 4 HEMAL MCNAMARA S 2023 28 [facility] [place] [facility] PREGABALIN 200 MG ORAL CAP TAKE ONE CAPSULE BY MOUTH TWICE DAILY ; THIS REPLACES GABAPENT IN 10/14/2023 [id number] 4 HEMAL MCNAMARA S 2023 28 [facility] [place] [facility] PREGABALIN 200MG CAP,ORAL TAKE ONE CAPSULE BY MOUTH TWICE DAILY ; THIS REPLACES GABAPENT IN ORAL DISCONT INUED (EDIT) 10/14/2023 [id number] 4 MARILYN MCNAMARA S 2023 28 [facility] PREGABALIN 225 MG ORAL CAP TAKE ONE CAPSULE BY MOUTH TWICE DAILY FOR PAIN 11/18/2023 [id number] 4 HEMAL MCNAMARA S 2023 60 [place] [facility] PREGABALIN 225 MG ORAL CAP TAKE ONE CAPSULE BY MOUTH TWICE DAILY ; THIS REPLACES GABAPENT IN 11/18/2023 [id number] 4 HEMAL MCNAMARA S 2023 60 [place] [facility] PREGABALIN 225 MG ORAL CAP TAKE ONE CAPSULE BY MOUTH TWICE DAILY ; THIS REPLACES GABAPENT IN Discont inued 10/28/2023 [id number] 4 HEMAL MCNAMARA S 2023 60 [facility] PREGABALIN 225MG CAP,ORAL TAKE ONE CAPSULE BY MOUTH TWICE DAILY FOR PAIN ORAL ACTIVE 11/23/2024 [id number] 4 ANDERS,BE THANY S 2023 60 [facility] PREGABALIN 225MG CAP,ORAL TAKE ONE CAPSULE BY MOUTH TWICE DAILY FOR PAIN ORAL DISCONT INUED 08/10/2024 [id number] 4 ANDERS,BE THANY S 2023 60 [facility] PREGABALIN 225MG CAP,ORAL TAKE ONE CAPSULE BY MOUTH TWICE DAILY FOR PAIN ORAL DISCONT INUED 06/15/2024 [id number] 4 ANDERS,MARILYN THANY S 2023 60 [facility] PREGABALIN 225MG CAP,ORAL TAKE ONE CAPSULE BY MOUTH TWICE DAILY FOR PAIN ORAL DISCONT INUED 01/03/2024 [id number] 4 ANDERS,MARILYN THANY S 2023 60 [facility] PREGABALIN 225MG CAP,ORAL TAKE ONE CAPSULE BY MOUTH TWICE DAILY ; THIS REPLACES GABAPENT IN ORAL DISCONT INUED 10/28/2023 [id number] 4 ANDERS,BE THANY S 2023 60 [facility] PREGABALIN 225MG CAP,ORAL TAKE ONE CAPSULE BY MOUTH TWICE DAILY FOR PAIN ORAL 11/18/2023 [id number] 4 ANDERS,MARILYN THANY S 2023 60 [facility] PREGABALIN 75MG CAP,ORAL TAKE ONE CAPSULE BY MOUTH THREE TIMES A DAY ; THIS REPLACES GABAPENT IN ORAL DISCONT INUED (EDIT) 09/30/2023 [id number] 4 ANDERS,BE THANY S 04/05/ 2024 42 [facility] TADALAFIL 5MG TAB TAKE ONE TABLET BY MOUTH DAILY ORAL ACTIVE JAIROUshaAYE PANCHITO [place] 2014 [facility] IELD Allergies, Adverse Reactions, Alerts Combined list of allergies from Department of Defense and Veterans Affairs facilities. It does not include entries that were removed or entered in error. Substance Category Reaction Severity Reaction type Status Date Reported Comments Source Diphenhydrami ne Drug allergy (disorder) active [place] [facility] DIPHENHYDRAMI NE Propensity to adverse reactions to drug (finding) active 5 [facility] Immunizations Combined list of available immunizations from the Department of Defense and Veterans Affairs facilities. 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 Administe red by: [facility] Clinician (NPI=Not Provided) . Partner 2 Lot#: [id number] Mfr: SEQIRUS [facility] [place] [...] FLU,3 YRS (HISTORICAL) 2014 88 complet ed [facility] FLU,3 YRS (HISTORICAL) 2014 88 complet ed [facility] DTAP, UNSPECIFIED FORMULATION 2006 107 complet ed [facility] DTAP, UNSPECIFIED FORMULATION 2004 107 complet ed [facility] PNEUMOCOCCAL POLYSACCHARID E PPV23 2000 33 complet ed n/a [facility] Results Combined list [...] alert was sent. Ordering Provider: RACH MCNAMARA S Report Released Date/Time: Dec 14, 2023 11:59 AM Reporting Lab: [place] [facility] [place] [facility] [address] [facility] [address] Performing Lab: [place] [facility] [place] [facility] [address] [facility] [address] [facility] [place] [facility] ALCOHOL, ETHYL URINE PANEL ETHANOL [MASS/VOLUM [...] Dec 14, 2023 11:59 AM Reporting Lab: [facility] [place] [facility] [address] [facility] [address] Performing Lab: [facility] [address] [facility] [address] [facility] [facility] ALCOHOL, ETHYL URINE PANEL PH OF URINE [...] Dec 14, 2023 11:59 AM Reporting Lab: [facility] [place] [facility] [address] [facility] [address] Performing Lab: [facility] [address] [address] [facility] ALCOHOL, ETHYL URINE PANEL CREATININE [MASS/VOLUM E] [...] Dec 14, 2023 11:59 AM Reporting Lab: [address] [address] Performing Lab: [address] [address] [facility] ALCOHOL, ETHYL URINE PANEL SPECIFIC GRAVITY OF [...] Dec 14, 2023 11:59 AM Reporting Lab: [address] [address] Performing Lab: [address] [address] [facility] AMPHETAMI GARCIA SCREEN PANEL AMPHETAMINE S [PRESENCE] [...] Dec 14, 2023 11:59 AM Reporting Lab: [facility] [place] [facility] [address] [facility] [address] Performing Lab: [facility] [place] [facility] [address] [facility] [address] [facility] [place] [facility] AMPHETAMI GARCIA SCREEN PANEL PH OF URINE [...] Dec 14, 2023 11:59 AM Reporting Lab: [facility] [place] [address] [address] Performing Lab: [facility] [place] [address] [address] [facility] TS [facility] AMPHETAMI GARCIA SCREEN PANEL CREATININE [MASS/VOLUM E] [...] Dec 14, 2023 11:59 AM Reporting Lab: [facility] [place] [address] [address] Performing Lab: [facility] [address] [facility] [address] [facility] AMPHETAMI GARCIA SCREEN PANEL SPECIFIC GRAVITY OF [...] Dec 14, 2023 11:59 AM Reporting Lab: [address] [address] Performing Lab: [address] [address] [facility] FENTANYL SCREEN PANEL FENTANYL [PRESENCE] IN URINE [...] Dec 14, 2023 11:59 AM Reporting Lab: [address] [address] Performing Lab: [address] [address] [facility] FENTANYL SCREEN PANEL PH OF URINE 5.8 [...] Dec 14, 2023 11:59 AM Reporting Lab: [facility] [address] [facility] [address] Performing Lab: [address] [address] [facility] FENTANYL SCREEN PANEL CREATININE [MASS/VOLUM E] IN [...] Dec 14, 2023 11:59 AM Reporting Lab: [facility] [address] Performing Lab: [address] [address] [facility] FENTANYL SCREEN PANEL SPECIFIC GRAVITY OF URINE [...] Dec 14, 2023 11:59 AM Reporting Lab: [facility] [address] [address] Performing Lab: [facility] [address] [address] [facility] BENZODIAZ EPINES SCREEN PANEL BENZODIAZEP JOVANY [PRESENCE] [...] Dec 14, 2023 11:59 AM Reporting Lab: [facility] [address] Performing Lab: [facility] [address] [facility] BENZODIAZ EPINES SCREEN PANEL PH OF URINE [...] Dec 14, 2023 11:59 AM Reporting Lab: [facility] [address] Performing Lab: [address] [address] [facility] BENZODIAZ EPINES SCREEN PANEL CREATININE [MASS/VOLUM E] [...] Dec 14, 2023 11:59 AM Reporting Lab: [address] [address] Performing Lab: [address] [address] [facility] BENZODIAZ EPINES SCREEN PANEL SPECIFIC GRAVITY OF [...] Dec 14, 2023 11:59 AM Reporting Lab: [address] [address] Performing Lab: [address] [address] [facility] BUPRENORP ZULEYMA SCREEN PANEL BUPRENORPHI NE [PRESENCE] [...] Dec 14, 2023 11:59 AM Reporting Lab: [facility] [place] [address] [address] Performing Lab: [facility] [address] [facility] [place] [facility] BUPRENORP ZULEYMA SCREEN PANEL PH OF URINE [...] Dec 14, 2023 11:59 AM Reporting Lab: [facility] [place] [address] [address] Performing Lab: [facility] [address] [facility] MASSUSE [facility] BUPRENORP ZULEYMA SCREEN PANEL CREATININE [MASS/VOLUM [...] Dec 14, 2023 11:59 AM Reporting Lab: [facility] [place] [facility] [address] [facility] [address] Performing Lab: [facility] [place] [facility] [address] [facility] [address] [facility] [place] [facility] BUPRENORP ZULEYMA SCREEN PANEL SPECIFIC GRAVITY [...] Dec 14, 2023 11:59 AM Reporting Lab: [facility] [place] [facility] [address] [facility] [address] Performing Lab: [facility] [address] [address] [facility] COCAINE SCREEN PANEL COCAINE [PRESENCE] IN URINE [...] Dec 14, 2023 11:59 AM Reporting Lab: [facility] [place] [facility] [address] [facility] [address] Performing Lab: [facility] [address] [facility] COCAINE SCREEN PANEL PH OF URINE [...] Dec 14, 2023 11:59 AM Reporting Lab: [facility] [employer] [address] Performing Lab: [address] [address] [facility] COCAINE SCREEN PANEL CREATININE [MASS/VOLUM E] IN [...] Dec 14, 2023 11:59 AM Reporting Lab: [facility] [employer] [facility] [address] Performing Lab: [facility] [employer] [facility] [address] [facility] [employer] [facility] COCAINE SCREEN PANEL SPECIFIC GRAVITY OF [...] Dec 14, 2023 11:59 AM Reporting Lab: [facility] [place] [facility] [address] [facility] [address] Performing Lab: [facility] [address] [facility] [address] [facility]ITAL[facility] CANNABINO IDS SCREEN PANEL CANNABINOID S [...] Dec 14, 2023 11:59 AM Reporting Lab: [facility] [place] [address] [address] Performing Lab: [facility] [address] [address] [facility] B[facility]N [facility] CANNABINO IDS SCREEN PANEL PH OF [...] Dec 14, 2023 11:59 AM Reporting Lab: [facility] [place] [address] [address] Performing Lab: [facility] TRN [facility] [address] [facility] CANNABINO IDS SCREEN PANEL CREATININE [MASS/VOLUM E] [...] Dec 14, 2023 11:59 AM Reporting Lab: [address] [address] Performing Lab: [address] [address] [facility] CANNABINO IDS SCREEN PANEL SPECIFIC GRAVITY OF [...] Dec 14, 2023 11:59 AM Reporting Lab: [address] [address] Performing Lab: [address] [address] [facility] OPIATES SCREEN PANEL OPIATES [PRESENCE] IN URINE [...] Dec 14, 2023 11:59 AM Reporting Lab: [facility] [address] Performing Lab: [facility] [address] [facility] OPIATES SCREEN PANEL PH OF URINE 5.8 [...] Dec 14, 2023 11:59 AM Reporting Lab: [facility] [address] Performing Lab: [facility] BIRM[facility]N [facility] [address] [facility] OPIATES SCREEN PANEL CREATININE [MASS/VOLUM E] IN [...] 14, 2023 11:59 AM Reporting Lab: [place] [facility] [address] Performing Lab: [facility] [address] [facility] OPIATES SCREEN PANEL SPECIFIC GRAVITY OF URINE [...] Dec 14, 2023 11:59 AM Reporting Lab: [address] [address] Performing Lab: [address] [address] [facility] OXYCODONE SCREEN PANEL OXYCODONE [PRESENCE] IN URINE [...] Dec 14, 2023 11:59 AM Reporting Lab: [facility] [address] Performing Lab: [address] [address] [facility] OXYCODONE SCREEN PANEL PH OF URINE 5.8 [...] Dec 14, 2023 11:59 AM Reporting Lab: [facility] [place] [facility] [address] [facility] [address] Performing Lab: [facility] MASSUSE[address] [address] [facility] [employer] [facility] OXYCODONE SCREEN PANEL CREATININE [MASS/VOLUM E] [...] Dec 14, 2023 11:59 AM Reporting Lab: [facility] [employer] [facility] [address] Performing Lab: [facility] [employer] [facility] [address] [facility] [employer] [employer] SCREEN PANEL SPECIFIC GRAVITY OF URINE [...] AM Reporting Lab: [facility] [address] [facility] [address] Performing Lab: [facility] [address] [facility] [address] [facility] Encounters Combined list of: 1) Encounters from [facility] facilities going back up to thelast 18 months. 2) Encounters from the Department of Defense facilities going back up to 280 months. Location Location Details Encounter Type Encounter Number Reason For Visit Attending Provider ADM Date DC Date Status Disposition Source [facility] [place] AD[place] [id number] MICKY NEFF 02/09 [facility] [employer]ING DEVICE [id number] Diagnos is: ICD-10- CM Z46.1 Encount er for fitting and adjustm ent of hearing aid<br/ > Cinda GRANADOS 02/13 [facility] Outpatient Encounter [id number] LEV SAMUEL 02/13 [facility] Out[facility]counter [id number] 04/03 [facility] Out[facility]counter [id number] 05/16 [facility] Out[facility]counter [id number] 05/17 [facility] HEARING AID REPAIR/MOD IFYING [id number] Diagnos is: ICD-10- CM Z46.1 Encount er for fitting and adjustm ent of hearing aid<br/ > ERIC BRUCE CHRISTINE JONY 05/24 [facility] Out[facility] Encounter [id number] 05/29 [facility] HEARING AID REPAIR/MOD IFYING [id number] Diagnos is: ICD-10- CM H90.3 Sensori neural hearing loss, bilater al
ERIC BRUCE CHRISTINE JONY 06/07 [facility] [facility] CONFORMITY EVALUATION [id number] Diagnos is: ICD-10- CM Z46.1 Encount er for fitting and adjustm ent of hearing aid<br/ > SENIOR,ALBERT OLE L 07/06 [facility] Outpatient Encounter [id number] Diagnos is: ICD-10- CM Z02.89 Encount er for other adminis trative examina tions<b r/> MICAELA ERAZO L 08/14 [facility] Out[facility] Encounter [id number] 08/16 [facility] Outpatient Encounter [id number] 08/16 [facility] [place] O/P EST HI 40 MIN [id number] Diagnos is: ICD-10- CM E78.5 Hyperli pidemia , unspeci fied
TAYLOR SMALL 08/16 [place] [facility] Outpatient Encounter [id number] 08/21 [facility] Out[facility] Encounter [id number] 08/22 [facility] MTMS BY PHARM ADDL 15 MIN [id number] Diagnos is: ICD-10- CM M54.50 Low back pain, unspeci fied
RICKY MCNAMARA 08/23 [facility] Out[facility] Encounter [id number] 08/26 [facility] OFFICE O/P EST HI 40 MIN [id number] Diagnos is: ICD-10- CM G89.29 Other chronic pain
KUPFERSCHM ID,HUNG B 08/27 [facility] Outpatient Encounter [id number] 08/29 [facility] MTMS BY PHARM ADDL 15 MIN [id number] Diagnos is: ICD-10- CM M54.50 Low back pain, unspeci fied
RICKY MCNAMARA 08/30 [facility] HEARING AID FITTING/CH ECKING [id number] Diagnos is: ICD-10- CM Z46.1 Encount er for fitting and adjustm ent of hearing aid<br/ > Cinda GRANADOS 08/30 [facility] Outpatient Encounter [id number] 09/05 [facility] MTMS BY PHARM ADDL 15 MIN [id number] Diagnos is: ICD-10- CM M54.50 Low back pain, unspeci fied
RICKY MCNAMARA S 09/06 [facility] Out[facility] Encounter [id number] 09/06 [facility] Outpatient Encounter [id number] 09/12 [facility] MTMS BY PHARM ADDL 15 MIN [id number] Diagnos is: ICD-10- CM M54.50 Low back pain, unspeci fied
RICKY MCNAMARA S 09/13 [facility] Out[facility] Encounter [id number] 09/19 [facility] MTMS BY PHARM ADDL 15 MIN [id number] Diagnos is: ICD-10- CM M54.50 Low back pain, unspeci fied
RICKY MCNAMARA S 09/20 [facility] Out[facility] Encounter [id number] 09/24 [facility] Out[facility] Encounter [id number] 09/26 [facility] MTMS BY PHARM ADDL 15 MIN [id number] Diagnos is: ICD-10- CM M54.50 Low back pain, unspeci fied
RICKY MCNAMARA S 09/27 [facility] Out[facility] Encounter [id number] 09/27 [facility] HEARING AID REPAIR/MOD IFYING [id number] Diagnos is: ICD-10- CM Z46.1 Encount er for fitting and adjustm ent of hearing aid<br/ > SENIOR,ALBERT OLE L 09/30 [facility] [place] OFF[place] O/P EST LOW 20 MIN [id number] Diagnos is: ICD-10- CM L84 Corns and callosi ties
DAWSON LEBRON ES F 10/10 [place] [facility] Outpatient Encounter [id number] 10/17 [facility] MTMS BY PHARM ADDL 15 MIN [id number] Diagnos is: ICD-10- CM M54.50 Low back pain, unspeci fied
ANDERSRICKY S 10/18 [facility] ASS[facility]&MGMT 5-10 [id number] Diagnos is: ICD-10- CM M54.50 Low back pain, unspeci fied
PRANAV VIRAMONTES 10/18 [place] [facility] Out[facility] Encounter [id number] 11/11 [facility] MTMS BY PHARM ADDL 15 MIN [id number] Diagnos is: ICD-10- CM M54.50 Low back pain, unspeci fied
RICKY MCNAMARA S 11/12 [facility] Out[facility] Encounter [id number] 11/27 [facility] Out[facility] Encounter [id number] 12/03 [facility] QNHP OL DIG ASSMT&MGMT 5-10 [id number] Diagnos is: ICD-10- CM M54.50 Low back pain, unspeci fied
RICKY MCNAMARA S 12/03 [facility] Out[facility] Encounter [id number] 12/12 [facility] MTMS BY PHARM ADDL 15 MIN [id number] Diagnos is: ICD-10- CM M54.50 Low back pain, unspeci fied
RICKY MCNAMARA S 12/13 [facility] Out[facility] Encounter [id number] 12/13 [facility] Outpatient Encounter [id number] 12/13 [facility] Outpatient Encounter [id number] [facility] MTMS BY PHARM ADDL 15 MIN [id number] 1. Diagnos is: ICD-10- CM M54.50 Low back pain, unspeci fied
RICKY MCNAMARA S 12/27 [facility] Out[facility] Encounter [id number] 1.01/09 [facility] MTMS BY PHARM ADDL 15 MIN [id number] 1. Diagnos is: ICD-10- CM M54.50 Low back pain, unspeci fied
RICKY MCNAMARA S 01/10 [facility] HEARING AID REPAIR/MOD IFYING [id number] 1. Diagnos is: ICD-10- CM Z46.1 Encount er for fitting and adjustm ent of hearing aid<br/ > SENIOR,ALBERT GRANT L 01/13 [facility] Outpatient Encounter [id number] 02/06 [facility] MTMS BY PHARM ADDL 15 MIN [id number] 1. Diagnos is: ICD-10- CM M54.50 Low back pain, unspeci fied
RICKY MCNAMARA S 02/07 [facility] IMMUNIZATI ON ADMIN [id number] Diagnos is: ICD-10- CM Z23 Encount er for immuniz ation<b r/> ASHU RIGGS 02/07 [facility] Out[facility] Encounter [id number] 02/07 [facility] HC PRO PHONE CALL 5-10 MIN [id number] Diagnos is: ICD-10- CM G89.29 Other chronic pain
EMET,GRAHAMEN EEN 02/17 [facility] Out[facility] Encounter [id number] [facility] MTMS BY PHARM ADDL 15 MIN [id number] 1. Diagnos is: ICD-10- CM M54.50 Low back pain, unspeci fied
RICKY MCNAMARA S 02/25 [facility] Out[facility] Encounter [id number] 1.03/20 [facility] MTMS BY PHARM ADDL 15 MIN [id number] 1. Diagnos is: ICD-10- CM M54.50 Low back pain, unspeci fied
ANDERSBET ROBEL S 03/21 [facility] Out[facility] Encounter [id number] [facility] Outpatient Encounter [id number] 1.04/21 [facility] MTMS BY PHARM ADDL 15 MIN [id number] 1. Diagnos is: ICD-10- CM M54.50 Low back pain, unspeci fied
ANDERSRICKY ROBEL S 04/22 [facility] Out[facility] Encounter [id number] 04/22 [facility] Outpatient Encounter [id number]/22 [facility] MTMS BY PHARM ADDL 15 MIN [id number] Diagnos is: ICD-10- CM M54.50 Low back pain, unspeci fied
RICKY MCNAMARA ROBEL S 05/23 [facility] Out[facility] Encounter [id number] 05/29 [facility] Outpatient Encounter [id number] 06/04 [facility] OFFICE O/P EST HI 40 MIN [id number] Diagnos is: ICD-10- CM M54.50 Low back pain, unspeci fied
NATHANIEL CURTIS S 06/05 [facility] HEARING AID FITTING/CH ECKING [id number] Diagnos is: ICD-10- CM Z46.1 Encount er for fitting and adjustm ent of hearing aid<br/ > Cinda GRANADOS 06/05 [facility] Outpatient Encounter [id number] 06/05 [facility] Social History Combined list of available smoking, tobacco, and other social history from Department of Defense and Veterans Affairs facilities. Social History Type Response Date Comment Sourc e Tobacco smoking status [facility] [place]-[facility]ACCO FORMER USER 11/01/2022 [place] [facility] 11/01/2022 [place] History of tobacco use [facility]-TOBACCO NEVER USED [facility] of tobacco use CA-TOBACCO FORMER USER 10/19/2020 [place] [facility] of [facility] 08/16[facility] History of tobacco use QUIT TOBACCO USE > 7 YEARS AGO 08/16/2017 stopped smoking over 25 years ago [place] History of tobacco use QUIT TOBACCO USE > 7 YEARS AGO 08/15/2016 quit 25 years ago [place] History of tobacco use QUIT TOBACCO USE > 7 YEARS AGO 08/13/2015 smoked cig, ~20/day, quit 20 yrs ago [place] History of tobacco use QUIT TOBACCO USE > 7 YEARS AGO 08/10/2014 quit 20+ yrs ago [place] This section is an empty social history section. [facility] Plan of Care List of future care activities from Department of Veterans Affairs facilities. Additional future care activities may be listed in the Assessment and Plan section. Date/Time Care Activity Care Activity Detail Facili ty 06/27/2024 AMBULATORY - MEDICINE AMBULATORY [facility] [place] [facility] [place] [facility] 06/30/2024 AMBULATORY - MEDICINE AMBULATORY - MEDICI [facility] [place] [facility] 06/30/2024 AMBULATORY - MEDICINE AMBULATORY - MEDICI [place] [facility] [place] [facility] 06/30/2024 AMBULATORY - MEDICINE AMBULATORY - MEDICI [place] [facility] [place] [facility] 08/21/2024 AMBULATORY - MEDICINE AMBULATORY - MEDICI [place] 09/02/2024 AMBULATORY - REHAB MEDICINE AMBULATORY - REHAB MEDICINE [facility] [place] [facility] 06/05/2024 Consult Order INTERDISCIPLINAR Y PAIN TEAM (OUTPT) Cons Routing Clerk's Choice [facility] Advance Directives List of completed, amended, or rescinded Advance Directives on record at Department of Veterans [facility] facilities. An actual copy of the Directive is not included. Date Advance Directive Provider Source 12/02/2020 ADVANCE DIRECTIVE ZAIRE COMER
--- OUTSIDE RECORDS SUMMARY | 2024-06-18 15:51 | XMS_ITS ---
Author Name [facility] [facility] [facility] [place] Address [address] [place] [address] Care Team Providers Care Nursing Informatics Specialist Name Role Phone KRISTOPHER MAXWELL Primary Care Provider [facility] Insurance Providers: All historical and current [...] PRESCRIPT ION [id number] 1 May 28, 2017 [id number] [phone] [place] MAK PATIENT [place] PRESCRIPT ION [id number] 1 May 28, 2017 [id number] OBDULIO,Weston MANSOORM PATIENT [employer] RX PRESCRIPT ION RX May 28, 2022 [id number] OBDULIO,W ILLIAM PATIENT [facility] PLAN ALLEGRA Rin[place] May 28, 2017 [id number] OBDULIO,W ILLIAM PATIENT [facility] USP May 28, 2017 [facility] [id number] [phone] OBDULIO,W ILLIAM PATIENT [facility] (WNR) TRICA RE(WN R) May 28, 2017 (WNR) [id number] OBDULIO,W ILLIAM PATIENT [facility] (WNR) HMO May 28, 2014 [id number] [phone] OBDULIO,W ILLIAM PATIENT Selected Encounter This section includes the information on record at [place] for the Encounter. Date/Time Encounter Type Encounter Description Reason Provider Source May 23, 2024 08:30 AM MTMS BY TRAY [place]ET 15 MIN TELEPHONE/STEPHY MICHAEL ICD-10-CM M54.50 Low back pain, unspecified HEMAL MCNAMARA E Encounter Template Text not used by [place] Assessments - Encounter Diagnoses This section includes the primary and secondary diagnoses documented for the Encounter. Date/Time Primary/Secondary Diagnosis Diagnosis Name Provider Source May 23, 2024 08:30 AM PRIMARY Low back pain, unspecified HEMAL MCNAMARA [place] [facility] [place] [facility] [...] Appointment Type Appointme nt Facility Name Jun 05, 2024 10:00 AM AMBULATORY [place]ICINE [place] [facility] [place] [facility] Jun 05, 2024 11:00 AM AMBULATORY - REHAB MEDICIN E [facility] [place] [facility] Jun 27, 2024 08:30 AM AM[place]ORY [place] [facility] [place] [facility] Jun 30, 2024 08:30 AM AM[place]ORY [place] [facility] [place] [facility] Jun 30, 2024 09:30 AM [facility] Jun 30, 2024 10:30 [facility] Aug 21, 2024 01:00 PM [facility] Sep 02, 2024 10:00 AM AMBULATORY - REHAB MEDICIN E [facility] Active, Pending, and Scheduled Orders This section includes a listing of several types of active, pending, and scheduled orders, including clinic medications orders, diagnostic test orders, procedure orders and consult orders; where the start date of the order is 45 days before the date of the Encounter or 45 days after the date of theEncounter. The data comes from all [place] treatment facilities. Test Date/Time Test Type Test Details Facility Name Jun 05, 2024 01:27 PM Consult Order INTERDISCI PLINARY PAIN TEAM (OUTPT) Cons Insurance Policy Issue Clerk's Choice [facility] Advance Directives: All historical and current [...] Dec 02, 2020 ADVANCE DIRECTIVE ZAIRE COMER [facility] Encounter Notes: All associated encounter notes This section contains the clinical notes associated to the Encounter. Date/Time Encounter Note(s) Provider Source May 23, 2024 08:22 AM ACCOUNTING OF DISCLOSURES NOTE: LOCAL TITLE: STATE PRESCRIPTION DRUG MONITORING PROGRAM STANDARD TITLE: ACCOUNTING OF DISCLOSURES NOTE DATE OF NOTE: MAY 23, 2024@08:22:07 ENTRY DATE: MAY 23, 2024@08:22:07 AUTHOR: HEMAL MCNAMARA EXP COSIGNER: URGENCY: STATUS: COMPLETED This PDMP query was submitted by Hemal Mcnamara. The clinical justification for this PDMP query is to review controlled substances prescribed outside of the [facility], and any additional information that may become available, as an important component of standard clinical care, and in accordance with [facility] policy. Patient information was shared with the PDMP [place]. No prescription(s) for controlled substances outside the [facility] were found in the last 90 days. /es/ HEMAL MCNAMARA CLINICAL PHARMACIST PRACTITIONER, PAIN Signed: 05/23/2024 08:46 HEMAL MCNAMARA [facility] May 23, 2024 08:18 AM PAIN MEDICINE OUTPATIENT NOTE: LOCAL TITLE: PAIN CLINIC NOTE STANDARD TITLE: PAIN MEDICINE OUTPATIENT NOTE DATE OF NOTE: MAY 23, 2024@08:18 ENTRY DATE: MAY 23, 2024@08:18:12 AUTHOR: HEMAL MCNAMARA EXP COSIGNER: URGENCY: STATUS: COMPLETED TEODORA Da Silva is 69 year old WHITE MALE with a history of chronic low back pain, who presents via telephone to pharmacy pain management clinic today for routine follow-up appointment. Berta was last seen in clinic on 04/22/24; recommended retrialing use of diclofenac epolamine patches on low back. Please see previous pain clinic notes for additional details. Berta was contacted at 8:30AM for TC follow-up, unfortunately there was no answer. Second attempt made at 8:37AM, again no answer. [place] returned call to clinic at 8:40AM and was able to transferred to provider to complete appointment. SUBJECTIVE/OBJECTIVE: TEODORA Da Silva reports things have been going steady since last encounter. He states the [back] pains there and perhaps a little more sharp than this time last year. reports he is able to lay in bed for 2-3hrs and then goes to lay in recliner which is more comfortable but he does not want to make that a habit. He has been using a CBD oil on his back which he states provides little benefit. EVALUATION OF PAIN RELATED MEDICATIONS: ---- A focused pain related medication reconciliation was performed. 1. Belbuca 150mcg BID - [place] confirmed taking as prescribed - Denies any increase in sedation, fatigue, constipation, or irritation to oral mucosa 2. Diclofenac Epolamine 1.3% patches BID PRN - Use provides little benefit; doesn't reach deep enough 3. Pregabalin 225mg BID - [place] confirms taking as prescribed 4. Non-VA Acetaminophen 325mg PRN - Use not assessed today d/t time limitations EVALUATION OF SOCIAL HISTORY: -- TOBACCO USE: Denied. Quit ~30 yrs ago ALCOHOL USE: Socially when at [place]; 1-2 beers, 1-2x per week CANNABIS USE: topical CBD oil for back pain OTHER ILLICIT SUBSTANCES: Denied. RISK MITIGATION: LONG-TERM CONSENT: Reviewed and completed 12/14/23 NALOXONE: Education and dispensing completed 02/26/24. asks to have second kit [place] ( splits time between home/camp). UDS MONITORING: Completed 12/14/23; results salgado negative PDMP: Completed 04/22/24 with renewal of pregabalin C-SSRS: Completed on 08/24/23 at initial consult PMOP PAIN MEASURES: Pain Intensity, Interference with Enjoyment and General Activity (PEG-3) Date Score 08/24/23 5.6 DIPHENHYDRAMINE Active and Recently Outpatient Medications (excluding Supplies): Active Outpatient Medications Status 1) ASPIRIN 81MG EC TAB TAKE ONE TABLET BY MOUTH ONCE DAILY TO ACTIVE PREVENT STROKE/HEART ATTACK Indication: CARDIOPROTECTION 2) BUPRENORPHINE 150MCG BUCCAL FILM PLACE ONE FILM BETWEEN ACTIVE CHEEK AND GUM UNTIL DISSOLVED EVERY 12 HOURS Indication: FOR PAIN 3) DICLOFENAC EPOLAMINE 1.3% PATCH APPLY 1 PATCH TO SKIN TWICE ACTIVE DAILY NEEDED FOR PAIN Indication: FOR PAIN 4) PREGABALIN 225MG ORAL CAP TAKE ONE CAPSULE BY MOUTH TWICE ACTIVE DAILY FOR PAIN Active Non-VA Medications Status 1) Non-VA ACETAMINOPHEN 325MG TAB 1300MG BY MOUTH THREE TIMES ACTIVE DAILY NEEDED 2) Non-VA ALFUZOSIN HCL 10MG SA TAB 10MG BY MOUTH DAILY ACTIVE 3) Non-VA TADALAFIL 5MG TAB 5MG BY MOUTH DAILY ACTIVE 7 Total Medications Active problems - Computerized Problem List is the source for the followin. Hyperlipidemia ([facility] [id number]) 2. Impaired Fasting Glucose ([facility] [id number]) 3. Erectile Dysfunction ([facility] [id number]) 4. Tinnitus 5. Hearing loss 6. Exposure to Potentially Hazardous Substance ([facility] [id number]) 7. Syncope and collapse 8. Low back [...] tobacco use ASSESSMENT: Mr. Mak is a 69-year-old male [place] with a history of chronic low back pain s/p multiple surgeries to cervical and lumbar spine. [place] also followed by Non-VA providers for chronic pain related interventions. continues to tolerate regimen. As mentioned in previous notes, [place] would likely benefit from optimization of Belbuca regimen, however, he states desire to defer this until appointment with Dr. Chu in early May. At this time will renew prescriptions to allow for continuation of therapy. Will plan to follow-up with in May post-appointment with Pain Management MD. A shared decision-making approach was used in the development of this plan, involving the and clinician present. The was provided the opportunity express questions or concerns, and the plan was adjusted as needed to address these concerns. [place] verbalized understanding of the plan, including possible known risks and benefits, and had no additional questions. PLAN: 1. No changes made today - Continue Belbuca 150mcg BID - Continue Pregabalin 225mg BID 2. PDMP queried; prescriptions requested for overnight delivery 3. may continue to use diclofenac epolamine patches and acetaminophen PRN 4. [place] will be seen by Dr. Chu on 06/05/24 F/U via telephone in 4-6 [...] completed today Encounter Time: 30 minutes /jac/ HEMAL MCNAMARA CLINICAL PHARMACIST PRACTITIONER, PAIN Signed: 05/23/2024 13:34 HEMAL MCNAMARA [place] [facility] [place] [facility]
--- OUTSIDE RECORDS SUMMARY | 2024-06-18 15:51 | XMS_ITS | Encounter Summary ---
Author Name [facility] [place] Address [address] [place] [address] Care Team Providers Care Gaming Host Name Role Phone KRISTOPHER MAXWELL Primary Care Provider [facility] Insurance Providers: All historical and [...] PRESCRIPT ION RX730 1 May 28, 2017 [id number] [phone] OBDULIO,Weston MANSOORM PATIENT CAREMARK PRESCRIPT ION [id number] 1 May 28, 2017 [id number] [phone] Weston MAK ILLTAINAM PATIENT OPTUM RX PRESCRIPT ION RX May 28, 2022 THPRX [id number] Weston MAK ILLIAM PATIENT [facility] PLAN ALLEGRA Rincon May 28, 2017 [id number] Weston MAK PATIENT [facility] HE[facility] PLAN USP May 28, 2017 [facility] [id number] Weston MAK PATIENT [facility] (WNR) TRICA RE(WN R) May 28, 2017 (WNR) [id number] Weston MAK PATIENT [facility] (WNR) HMO May 28, 2014 [id number] Weston MAK PATIENT Selected Encounter This section includes the information on record at [place] for the Encounter. Date/Time Encounter Type Encounter Description Reason Pro vider Source May 22, 2024 09:29 AM Outpatient Encounter TELEPHONE/ANCILLARY IHE Encounter Template Text not used by [place] Plan of Treatment: Future Appointments (+ 6 months) and Future Tests (+/- 45 days) The Plan of Treatment section includes future care activities for the patient from all [place] treatmentfacilities. This section includes future appointments and future orders which are active, pending or scheduled. Future Appointments This section includes appointments that were scheduled to occur 6 months from the date of the Encounter, up to a maximum of 20 appointments. The data comes from all [place] treatment facilities. Appointment Date/Time Appointment Type Appointme nt Facility Name May 23, 2024 08:30 AM AMBULATORY [facility] MEDICINE [facility] [place] [facility] Jun 05, 2024 10:00 AM AMBULATORY - MEDICINE [facility] [place] [facility] Jun 05, 2024 11:00 AM AMBULATORY - REHAB MEDICIN E [facility] [place] [facility] Jun 27, 2024 08:30 AM AMBULATORY - MEDICINE [facility] [place] [facility] Jun 30, 2024 08:30 AM AMBULATORY - MEDICINE [facility] [place] [facility] Jun 30, 2024 09:30 AM AMBULATORY - MEDICINE [facility] [place] [facility] Jun 30, 2024 10:30 AM AMBULATORY - MEDICINE [facility] [place] [facility] Aug 21, 2024 01:00 PM AMBULATORY - MEDICINE [facility] Sep 02, 2024 10:00 AM AMBULATORY - REHAB MEDICIN E [facility] [place] [facility] Active, Pending, and Scheduled Orders This section includes a listing of several types of active, pending, and scheduled orders, including clinic medications orders, diagnostic test orders, procedure orders and consult orders; where the start date of the order is 45 days before the date of the Encounter or 45 days after the date of theEncounter. The data comes from all [place] treatment facilities. Test Date/Time Test Type Test Details Facility Name Jun 05, 2024 01:27 PM Consult Order INTERDISCI PLINARY PAIN TEAM (OUTPT) Cons Note Keeper's Choice [facility] Advance Directives: All historical and current Section Date Range: From patient's date of to the date document was created. This section includes ALL of a patient's completed or amended [place] Advance and Rescinded Directives. The entries below indicate that a directive exists for the patient, but an actual copy is not included with this document. The data comes from all [place] facilities. Date Advance Directives Provider Source Dec 02, 2020 ADVANCE DIRECTIVE ZAIRE COMER IE Encounter Notes: All associated encounter notes This section contains the clinical notes associated to the Encounter. Date/Time Encounter Note(s) Provider Source May 22, 2024 09:29 AM TELEPHONE ENCOUNTE R NOTE: LOCAL TITLE: TELEPHONE NOTE/SPECIALTY CLINIC STANDARD TITLE: TELEPHONE ENCOUNTER NOTE DATE OF NOTE: MAY 22, 2024@09:29 ENTRY DATE: MAY 22, 2024@09:29:26 AUTHOR: LAURA BOOKER EXP COSIGNER: URGENCY: STATUS: COMPLETED Called and spoke with pt to remind them that they have a tele appt with the Pain clinic on 05/23/2024 at 830. /jac/ LAURA BOOKER ADVANCED BLEACH MAKER Signed: 05/22/2024 09:30 LAURA BOOKER [facility]
--- OUTSIDE RECORDS SUMMARY | 2024-06-18 15:51 | XMS_ITS | Clinical Summary ---
Author Organization [facility] Address [address] [place] [address] Care Team Providers Care Energy And Sustainability Manager Name Role Phone Gudelia Lynne MD Primary Care Provider [phone] Allergies Active Allergy Reactions Criticality Noted Date Comments Diphenhydramine 2005 c/o being hyper Medications Medication Sig Dispensed Refills Start Date End Date Status alfuzosin (UROXATRAL) 10 MG 24 hr tablet 0 07/09/2017 Active baclofen (LIORESAL) 10 MG tablet TAKE 1/2 TABLET (5 MG) BY MOUTH EVERY 8 HOURS NEEDED 0 07/20/2017 Active diclofenac (VOLTAREN) 75 MG EC tablet 0 08/10/2017 Active gabapentin (NEURONTIN) 600 MG tablet 0 08/13/2017 Active oxybutynin (DITROPAN-XL) 10 MG 24 hr tablet 0 08/28/2017 Active CIALIS 5 MG tablet 0 08/14/2017 Active alfuzosin (UROXATRAL) 10 MG 24 hr tablet Take 10 mg by mouth. 0 10/08/2012 Active tadalafil (CIALIS) 5 MG tablet Take 5 mg by mouth. 0 Active naproxen (NAPROSYN) 500 MG tablet TAKE 1 TABLET BY MOUTH TWICE A DAY WITH FOOD 5 08/24/2018 Active ondansetron (ZOFRAN) 4 MG tablet Take 4 mg by mouth. 0 02/01/2018 Active hydrOXYzine (VISTARIL) 25 MG capsule TAKE 1 CAPSULE BY MOUTH EVERY 6 HOURS NEEDED FOR PAIN/INSOMNIA 0 06/17/2020 Active omeprazole (PriLOSEC) 20 MG capsule 0 08/09/2020 Active oxyCODONE (ROXICODONE) 5 MG immediate release tablet TAKE 1 TO 2 TABLETS BY MOUTH EVERY 2 TO 3 HOURS NEEDED FOR SEVERE PAIN 0 06/17/2020 Active traMADol (ULTRAM) 50 MG tablet TAKE 1 TO 2 TABLETS BY MOUTH EVERY 6 HOURS NEEDED FOR PAIN NOT TO EXCEED 6 TABS A DAY 0 07/06/2020 Active meloxicam (MOBIC) 7.5 MG tablet 0 07/08/2021 Active traMADol (ULTRAM) 50 MG tablet Take 1 tab every 12 hours as needed for pain 50 tablet 0 03/17/2022 Active amoxicillin (AMOXIL) 500 MG capsule Take four tabs (2,000 mg) one hour before any dental work 20 capsule 4 06/26/2022 Active Active Problems Problem Noted Date Diagnosed Date Knee stiffness, right 09/10/2018 Immunizations Name Administration Dates Next Due Covid-19 (Pfizer) Dilution Required 03/15/2021,0 07/30/2020,07/09/2020 Family History Medical History Relation Name Comments Cancer Maternal Grandmother Hypertension Maternal Grandmother Cancer Mother Relation Name Status Comments Maternal Grandmother Mother Social History Tobacco Use Types Packs/Day Years Used Date Smoking Tobacco: Never Assessed Sex and Gender Information Value Date Recorded Sex Assigned at Not on file Gender Identity Not on file Sexual Orientation Not on file Job Start Date Occupation Industry Not on file Not on file Not on file Last Filed Vital Signs Vital Sign Reading Time Taken Comments Blood Pressure - - Pulse - - Temperature - - Respiratory Rate - - Oxygen Saturation - - Inhaled Oxygen Concentration - - Weight 111.1 kg (245 lb) 09/09/2020 2:06 PM EDT Height 182.9 cm (6') 09/11/2017 2:23 PM EDT Body Mass Index 33.23 09/11/2017 2:23 PM EDT Plan of Treatment Health Maintenance Due Date Last Done Comments Hepatitis C Screening 1956 Depression Screening 1968 BMI Counseling 1974 Preventative Health Evaluation 1974 Colon Cancer Screening (Colonoscopy) 2001 Fall Risk Assessment 2021 COVID-19 Vaccine () 01/27/2024 03/15/2021, 07/30/2020, 07/09/2020 Influenza Vaccine (#1) 2024 , 06/15/2019, 07/11/2018, Additional history exists DTap / Tdap / Td (4 - Td or Tdap) 01/02/2031 01/02/2021, 11/27/2016, 10/27/2006 RSV Adult > 60+ Yrs or (1 - 1-dose 75+ series) 2031 Shingrix-Zoster Vaccine Completed 11/16/2019, 07/15 Pneumococcal Vaccine Completed 08/05/2022 Hepatitis B Vaccines Aged Out No long er eligible based on patient's age to complete this topic RSV Ped < 20 months Aged Out No longe r eligible based on patient's age to complete this topic Care Teams Energy And Sustainability Manager Relationship Specialty Start Date End Date Gudelia Lynne MD PCP - General Internal Medicine 09/09/20
--- OUTSIDE RECORDS SUMMARY | 2024-06-18 15:51 | XMS_ITS ---
Author Name [facility] [place] Address [address] [place] [address] Care Team Providers Care Roll Scale Worker Name Role Phone KRISTOPHER MAXWELL Primary [...] PRESCRIPT ION RX730 1 May 28, 2017 [id number] [phone] Weston MAK MANSOORKaren PATIENT CAREMARK PRESCRIPT ION [id number] 1 May 28, 2017 [id number] [phone] Weston MAK PATIENT OPTUM RX PRESCRIPT ION RX May 28, 2022 THPRX [id number] Weston MAK PATIENT [facility] PL[facility] ALLEGRA Lamar May 28, 2017 [id number] OBDULIO,W ILLIAM PATIENT [facility] USP May 28, 2017 [facility] [id number] OBDULIO,W ILLIAM PATIENT [facility] (WNR) TRICA RE(WN R) May 28, 2017 (WNR) [id number] [phone] OBDULIO,W ILLIAM PATIENT [facility] (WNR) HMO May 28, 2014 [id number] OBDULIO,W ILLIAM PATIENT Selected Encounter This section includes the information on record at [place] for the Encounter. Date/Time Encounter Type Encounter Description Reason Provider Source Jun 05, 2024 11:00 AM HEARING AID FITTING/CHECKIN G AUDIOLOGY ICD-10-CM Z46.1 Encounter for fitting and adjustment of hearing aid GRETCHEN GRANADOS Sergey Encounter Template Text not used by [place] Assessments - Encounter Diagnoses This section includes the primary and secondary diagnoses documented for the Encounter. Date/Time Primary/Secondary Diagnosis Diagnosis Name Provider Source Jun 05, 2024 11:28 AM PRIMARY Encounter for fitting and adjustment of hearing aid GRETCHEN GRANADOS [place] [facility] [place] [place] [facility] Jun 05, 2024 11:28 AM SECONDARY Sensorineural hearing loss, bilateral GRETCHEN GRANADOS [place] [facility] [place] [facility] Plan of Treatment: Future Appointments [...] Appointment Type Appointme nt Facility Name Jun 27, 2024 08:30 AM AMBULATORY - MEDICINE [facility] [place] [facility] Jun 30, 2024 08:30 AM AMBULATORY - MEDICINE [facility] [place] [facility] Jun 30, 2024 09:30 AM AMBULATORY - MEDICINE [place] [place] [facility] Jun 30, 2024 10:30 AM [facility] Aug 21, 2024 01:00 PM [facility] Sep 02, 2024 10:00 AM AMBULATORY - REHAB MEDICIN E [facility] Active, Pending, and Scheduled Orders This section includes a listing of several types of active, pending, and scheduled orders, including clinic medications orders, diagnostic test orders, procedure orders and consult orders; where the start date of the order is 45 days before the date of the Encounter or 45 days after the date of theEncounter. The data comes from all [place] treatment facilities. Test Date/Time Test Type Test Details Facility Name Jun 05, 2024 01:27 PM Consult Order INTERDISCI PLINARY PAIN TEAM (OUTPT) Cons Bankman's Choice [facility] Advance Directives: All historical and current Section Date Range: From patient's date of to the date document was created. This section includes ALL of a patient's completed or amended [place] Advance and Rescinded Directives. The entries below [...] Encounter. Date/Time Encounter Note(s) Provider Source Jun 05, 2024 08:58 AM AUDIOLOGY E & M NO TE: LOCAL TITLE: AUDIOLOGY CLINIC STANDARD TITLE: AUDIOLOGY E & M NOTE DATE OF NOTE: JUN 05, 2024@08:58 ENTRY DATE: JUN 05, 2024@08:58:37 AUTHOR: GRETCHEN GRANADOS COSIGNER: URGENCY: STATUS: COMPLETED [place] has a history of bilateral sensorineural hearing loss. 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 Both hearing aids were connected to [employer] and settings were restored. A new feedback test was performed on the right aid with good gain margins noted. Tubing was replaced on the left hearing aid and two spare left earmolds. notes that the remote [place] is not working. It is not charged today- despite being on the literacy education professor for several minutes it turned off almost immediately after being turned on. [place] reports it has been doing this even after it charges overnight. Sent in for repair, will ship to [facility]. He was advised to use the instructions to pair it to the hearing aids. HAC scheduled for 09-02-24 at 10am. /jac/ Eun DA SILVA, [facility]-A STAFF [place]ET[place] TECHNICIAN Signed: 06/05/2024 12:00 GRETCHEN GRANADOS [facility]
--- OUTSIDE RECORDS SUMMARY | 2024-06-18 15:51 | XMS_ITS | Encounter Summary ---
Author Name [place] Address [address] [place] [address] Care Team Providers Care Rum Processing Operator Name Role Phone KRISTOPHER MAXWELL Primary [facility] Insurance Providers: All historical [...] PRESCRIPT ION RX730 1 May 28, 2017 [id number] [phone] OBDULIOWeston SNOWM PATIENT CAREMARK PRESCRIPT ION RX730 1 May 28, 2017 [id number] Weston MAKM PATIENT OPTUM RX PRESCRIPT ION RX May 28, 2022 THPRX [id number] OBDULIO,W ILLIAM PATIENT [facility] PLAN ALLEGRA Rincon May 28, 2017 [id number] [phone] Weston MAK PATIENT [facility] HE[facility] PLAN USP May 28, 2017 [facility] [id number] Weston MAK PATIENT [facility] (WNR) TRICA RE(WN R) May 28, 2017 (WNR) [id number] Weston MAK PATIENT [facility] HEALTH[facility] (WNR) HMO May 28, 2014 [id number] Weston MAK PATIENT Selected Encounter This section includes the information on record at [place] for the Encounter. Date/Time Encounter Type Encounter Description Reason Pro vider Source Jun 05, 2024 02:55 PM Outpatient Encounter PAIN CLINIC IHE Encounter [...] 27, 2024 08:30 AM AMBULATORY - MEDICINE [place] [place] [facility] Jun 30, 2024 08:30 AM AMBULATORY - MEDICINE [place] [facility] [place] [place] [facility] Jun 30, 2024 09:30 AM AMBULATORY - MEDICINE [place] [facility] Jun 30, 2024 10:30 AM AMBULATORY - MEDICINE [place] [facility] Aug 21, 2024 01:00 PM AMBULATORY - MEDICINE [facility] Sep 02, 2024 10:00 AM [facility]UL[facility] Active, Pending, and Scheduled Orders This section includes a listing of several types of active, pending, and scheduled orders, including clinic medications orders, diagnostic test orders, procedure orders and consult orders; where the start date of the order is 45 days before the date of the Encounter or 45 days after the date of theEncounter. The data comes from all [place] treatment facilities. Test Date/Time Test Type Test Details Facility Name Jun 05, 2024 01:27 PM Consult Order INTERDISCI PLINARY PAIN TEAM (OUTPT) Cons Plate Washer's Choice [place] [facility] [facility] Advance Directives: All historical and [...] Dec 02, 2020 ADVANCE DIRECTIVE ZAIRE COMER [facility] IELD Encounter Notes: All associated encounter notes This section contains the clinical notes associated to the Encounter. Date/Time Encounter Note(s) Provider Source Jun 05, 2024 02:55 PM LETTERS: LOCAL TITLE: PATIENT LETTER (B) STANDARD TITLE: LETTERS DATE OF NOTE: JUN 05, 2024@14:55 ENTRY DATE: JUN 05, 2024@14:55:57 AUTHOR: LAURA BOOKER EXP COSIGNER: URGENCY: STATUS: COMPLETED [facility] Toll Free Number ext [phone] [facility] scheduling can be reached at ext. [phone] [facility]- ext. [phone] [facility]- ext. [phone] [facility]- ext. [phone] JUN 05, 2024 TEODORA MAK [address] [place] [id number] Dear TEODORA MAK Thank you for choosing the Department of [facility] ([place]) [facility] as your primary choice for health care. As a partner in your health care, we are contacting you in writing since we have been unsuccessful in our attempts to reach you to date. We want to assure you we are doing everything possible to schedule Veterans for their VA medical care appointments. Our records indicate you are due for an appointment in interdisciplinary clinic. If you would like to be seen, please contact [facility] at ext. [phone] to schedule an appointment. Thank you for your service to our nation, and we look forward to hearing from you soon. Sincerely, [facility] [address] [facility] [address] [place] [address] [place] [address] ext [phone] [facility] Outpatient [facility] [address] [facility] [address] [place] [address] [place] [address] ext. [phone] [address] [facility] [address] [facility] [address] [place] [address] [place] [address] ext. [phone] LAURA BOOKER [place] CNTR[facility] [place]ATRN[place] [facility]
--- OUTSIDE RECORDS SUMMARY | 2024-06-18 15:51 | XMS_ITS | Encounter Summary ---
Author Name [facility] [place] Address [address] [place] [address] Care Team Providers Care Scenery Builder Name Role Phone KRISTOPHER MAXWELL Primary Care Provider [facility] Insurance Providers: All historical and current [...] PRESCRIPT ION RX730 1 May 28, 2017 [id number] OBDULIOWeston SNOWM PATIENT CAREMARK PRESCRIPT ION RX730 1 May 28, 2017 [id number] Weston MAKM PATIENT OPTUM RX PRESCRIPT ION RX May 28, 2022 THPRX [id number] [phone] OBDULIO,W ILLIAM PATIENT [facility] ALLEGRA Rincon May 28, 2017 [id number] Weston MAK PATIENT [facility] HEALTH PLAN [facility] May 28, 2017 [facility] [id number] [phone] Weston MAK PATIENT [facility] (R) TRICA RE(WN R) May 28, 2017 (WNR) [id number] Weston MAK PATIENT [facility] (WNR) HMO May 28, 2014 [id number] Weston MAK PATIENT Selected Encounter This section includes the information on record at [place] for the Encounter. Date/Time Encounter Type Encounter Description Reason Pro vider Source Jun 04, 2024 08:46 AM Outpatient Encounter PAIN CLINIC IHE Encounter Template Text not used by [place] Plan of Treatment: Future Appointments (+ 6 months) and Future Tests (+/- 45 days) The Plan of Treatment section includes future care activities for the patient from all [place] treatmentfacilities. This section includes future appointments and future orders which are active, pending or scheduled. Future Appointments This section includes appointments that were scheduled to occur 6 months from the date of the Encounter, up to a maximum of 20 appointments. The data comes from all [place] treatment facilities. Appointment Date/Time Appointment Type Appointme nt Facility Name Jun 05, 2024 10:00 AM AMBULATORY - MEDICINE [place] [facility] [place] [facility] Jun 05, 2024 11:00 AM AMBULATORY - REHAB MEDICIN E [place] [facility] [place] [facility] Jun 27, 2024 08:30 AM AMBULATORY - MEDICINE [place] [place] [facility] Jun 30, 2024 08:30 AM AMBULATORY - MEDICINE [facility] [place] [facility] Jun 30, 2024 09:30 AM AMBULATORY - MEDICINE [place] [facility] [place] [facility] Jun 30, 2024 10:30 AM AMBULATORY - MEDICINE [place] [facility] [place] [facility] Aug 21, 2024 01:00 PM AMBULATORY - MEDICINE [facility] Sep 02, 2024 10:00 AM AMBULATORY - REHAB MEDICIN E [place] [facility] [place] [facility] Active, Pending, and Scheduled Orders This section includes a listing of several types of active, pending, and scheduled orders, including clinic medications orders, diagnostic test orders, procedure orders and consult orders; where thestart date of the order is 45 days before the date of the Encounter or 45 days after the date of the Encounter. The data comes from all [place] treatment facilities. Test Date/Time Test Type Test Details Facility Name Jun 05, 2024 01:27 PM Consult Order INTERDISCI PLINARY PAIN TEAM (OUTPT) Cons Living Specialist's Choice [facility] Advance Directives: All historical and current Section Date Range: From patient's date of to the date document was created. This section includes ALL of a patient's completed or amended [place] Advance and Rescinded Directives. The entries below indicate that a directive exists for the patient, but an actual copy is not included with this document. The data comes from all [place] facilities. Date Advance Directives Provider Source Dec 02, 2020 ADVANCE DIRECTIVE ZAIRE COMER [facility] Encounter Notes: All associated encounter notes This section contains the clinical notes associated to the Encounter. Date/Time Encounter Note(s) Provider Source Jun 04, 2024 08:46 AM TELEPHONE ENCOUNTE R NOTE: LOCAL TITLE: TELEPHONE NOTE/SPECIALTY CLINIC STANDARD TITLE: TELEPHONE ENCOUNTER NOTE DATE OF NOTE: JUN 04, 2024@08:46 ENTRY DATE: JUN 04, 2024@08:46:22 AUTHOR: LAURA BOOKER EXP COSIGNER: URGENCY: STATUS: COMPLETED Call attempt was made to remind vet that they have a FTF appt with the Pain clinic on 06/05/2024 at 10AM. No answer, lvm. location was confirmed. 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
--- OUTSIDE RECORDS SUMMARY | 2024-06-18 15:51 | XMS_ITS ---
Author Name [facility] Organization Unknown History of Medication Use Medication Directions Dispensed Refills Start Date End Date [facility] traMADol HCl 50 MG Oral Tablet traMADol HCl 50 MG Oral Tablet QTY: 15 tablet Days: 3 Refills: 0 Written: 10/25/23 Patient Instructions: 1 every 4 - 6 hours as needed for pain 10/25/2023 10/28/2023 completed Problems Problem Status Onset Date Problem Type Date of Resoluti on Source Closed fracture of middle phalanx of little finger of left hand (disorder) active 2023-12-31 ProblemAct [facility] Closed fracture of triquetral bone of wrist (disorder) active 2023-10-15 ProblemAct [facility]
--- OUTSIDE RECORDS SUMMARY | 2024-06-18 15:51 | XMS_ITS | Encounter Summary ---
Author Name [facility] [place] [facility] [place] [facility] [place] [facility] [place] Address [address] [place] [address] Care Team Providers Care National Account Representative Name Role Phone KRISTOPHER MAXWELL Primary Care [...] PRESCRIPT ION [id number] 1 May 28, 2017 [id number] OBDULI[place] SNOWM PATIENT CAREMARK PRESCRIPT ION [id number] 1 May 28, 2017 [id number] [phone] [place] MAKM PATIENT OPTUM RX PRESCRIPT ION RX May 28, 2022 [id number] [phone] OBDULIO,W ILLIAM PATIENT [facility] PLAN ALLEGRA Rincon May 28, 2017 [id number] [place] MAK PATIENT [facility] USP May 28, 2017 [facility] [id number] [place] MAK PATIENT [facility] (R) TRICA RE(WN R) May 28, 2017 (WNR) [id number] [place] MAK PATIENT FORMERLY [facility], [facility]–1983 (WNR) HMO May 28, 2014 [id number] [place] MAK PATIENT Selected Encounter This section includes the information on record at [place] for the Encounter. Date/Time Encounter Type Encounter Description Reason Pro vider Source May 29, 2024 11:33 AM Outpatient Encounter PAIN CLINIC IHE Encounter Template Text not used by [place] Plan of Treatment: Future Appointments (+ 6 months) and Future Tests (+/- 45 days) The Plan of Treatment section includes future care activities for the patient from all [place] treatmentfacilities. This section includes future appointments and future orders which are active, pending or scheduled. Future Appointments This section includes appointments that were scheduled to occur 6 months from the date of the Encounter, up to a maximum of 20 appointments. The data comes from all [place] treatment facilities. Appointment Date/Time Appointment Type Appointme nt Facility Name Jun 05, 2024 10:00 AM AMBULATORY [facility] MEDICINE [facility] [place] [facility] Jun 05, 2024 11:00 AM AMBULATORY - REHAB MEDICIN [place] [facility] [place] [facility] Jun 27, 2024 08:30 AM AMBULATORY - MEDICINE [place] [facility] [place] [facility] Jun 30, 2024 08:30 AM AMBULATORY - MEDICINE [facility] [place] [facility] Jun 30, 2024 09:30 AM AMBULATORY - MEDICINE [facility] [place] [facility] Jun 30, 2024 10:30 AM AMBULATORY - MEDICINE [place] [facility] [place] [facility] Aug 21, 2024 01:00 PM AMBULATORY - MEDICINE [facility] Sep 02, 2024 10:00 AM AMBULATORY - REHAB MEDICIN E [facility] [place] [facility] Active, Pending, and Scheduled Orders This section includes a listing of several types of active, pending, and scheduled orders, including clinic medications orders, diagnostic test orders, procedure orders and consult orders; where thestart date of the order is 45 days before the date of the Encounter or 45 days after the date of the Encounter. The data comes from all [place] treatment facilities. Test Date/Time Test Type Test Details Facility Name Jun 05, 2024 01:27 PM Consult Order [facility] PAIN TEAM (OUTPT) Cons Elementary Vocal Music Teacher's Choice [facility] Advance Directives: All historical and current Section Date Range: From patient's date of to the date document was created. This section includes ALL of a patient's completed or amended [place] Advance and Rescinded Directives. The entries below indicate that a directive exists for the patient, but an actual copy is not included with this document. The data comes from all [place] facilities. Date Advance Directives Provider Source Dec 02, 2020 ADVANCE DIRECTIVE COMERZAIRE [facility] Encounter Notes: All associated encounter notes This section contains the clinical notes associated to the Encounter. Date/Time Encounter Note(s) Provider Source May 29, 2024 11:34 AM TELEPHONE ENCOUNTE R NOTE: LOCAL TITLE: TELEPHONE NOTE/SPECIALTY CLINIC STANDARD TITLE: TELEPHONE ENCOUNTER NOTE DATE OF NOTE: MAY 29, 2024@11:34 ENTRY DATE: MAY 29, 2024@11:39:49 AUTHOR: BEN CHRISTINA EXP COSIGNER: URGENCY: STATUS: COMPLETED Called pt and offering appt sooner than 06/05/2024. 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
--- OUTSIDE RECORDS SUMMARY | 2024-06-18 15:51 | XMS_ITS | Data Portability ---
Author Organization [place] [facility] [place] [place] Address [address] [facility] [address] [place] [address] Care Team Providers Care Elementary Art Teacher Name Role Phone TRA FAJARDO Primary Care [...] view 023 09/06/19 23 tamara [facility] [place] [facility], [address], [place], [address], 3 11:57:26 Medication Orders None record ed. Patient TargetsNo targets recorded. Patient InstructionsNo instructions recorded. Reason for Referral None Reported. Procedures Surgical History Date Name Laterality Status Provider Name and Address Organization Details Recorded Time Total knee arthroplasty completed Ela Ocampo [facility] [place], 09/05/2022 09:24:29 surgical procedure on cervical spine completed Ela Ocampo [facility] [place], P 09/05/2022 09:24:41 operation on lumbar spine completed Ela Ocampo [facility] [place] 09/05/2022 09:24:52 Imaging Results None recorded. [...] Updated DateTime 09/05/2022 182.88 cm 33.9 kg/m2 021711.[address] [facility] [place] 09/05/2022 09:24:01 Social History None recorded. [...] Diagnosis/Indication Diagnosis SNOMED-CT Code Diagnosis ICD10 Code Diagnosis Note 4704 MD LV Bolanosbrianda salgado [address] [facility] [address] [facility] [place] [address] 09/05/2022 09:07:56 09/05/2022 10:09:21 Pain of right knee joint [id number] M25.561 Health Concerns Section Related Observation LastModified by Organization Detai ls LastModified Time None Recorded Concern Status LastModified by Organization Details LastModified Time None Recorded Advance Directives Directive None Recorded Payers Encounter Date Sequence Insurance Name Policy Number Policy Lee Covered Member ID Lee Member ID Guarantor Name 09/05/2022 1 [facility] (POS) [id number] Aris Hernandez [id number] Aris Hernandez Notes Date Note Type Note [...] exercise program. Victorino De La Cruz MD [address] [place] [address], [phone], [place] [facility] [place], 09/05/2022 10:03:18
--- OUTSIDE RECORDS SUMMARY | 2024-06-18 15:51 | XMS_ITS | Clinical Summary ---
Author Organization [facility] Address [address] [place] [address] Care Team Providers Care Food Service Aide Name Role Phone Pcp, No Primary Care Provider Unavailabl e Allergies No known active allergies Medications Medication Sig Dispensed Refills Start Date End Date Status oxyCODONE (ROXICODONE) 5 MG immediate release tablet Take 1 tablet (5 mg total) by mouth 3 times daily (every 8 hours) as needed for severe pain. Max Daily Amount: 15 mg 5 tablet 10/13/2023 Active Immunizations Name Administration Dates Next Due Tdap 10/12/2023 Social History Tobacco Use Types Packs/Day Years Used Date Smoking Tobacco: Never Assessed Sex and Gender Information Value Date Recorded Sex Assigned at Male 10/12/2023 6:26 PM EDT Gender Identity Male 10/12/2023 6:26 PM EDT Sexual Orientation Heterosexual (straight) 10/11 6:26 PM EDT Last Filed Vital Signs Vital Sign Reading Time Taken Comments Blood Pressure 120/56 10/12/2023 11:36 PM EDT Pulse 62 10/12/2023 11:36 PM EDT Temperature 36.2 ??C (97.1 ??F) 10/12/2023 11:36 PM E DT Respiratory Rate 18 10/12/2023 11:36 PM EDT Oxygen Saturation 93% 10/12/2023 11:36 PM EDT Inhaled Oxygen Concentration - - Weight - - Height - - Body Mass Index - - Plan of Treatment Health Maintenance Due Date Last Done Comments Hepatitis C Virus Screening 1956 Colonoscopy 2001 Pneumococcal Vaccines 50+ (1 of 1 - PCV) 2006 Zoster (Shingles) Vaccine (1 of 2) 2006 Influenza Vaccine 12/27/2023 03/08/2023, , 02/10/2022, Additional history exists COVID-19 Vaccine ( season) 2024 03/15/2021, 07/30/2020, 07/09/2020 RSV Vaccine 60 years and older and Patients (1 - 1-dose 75+ series) 2031 DTaP/Tdap/Td Vaccines (2 - Td or Tdap) 10/11/2033 10/12/2023 Hepatitis B Vaccines Aged Out No long er eligible based on patient's age to complete this topic Care Teams Food Service Aide Relationship Specialty Start Date End Date Pcp, No PCP - General General Medicine 10/12/23
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
== END 2024-06-18 14:05 | disposition home or self-care (01) ==
PROVIDERS: PCP Internal Medicine; Visit Provider Orthopaedic Surgery
DX: M25.511 Pain in right shoulder (principal)
CPT/HCPCS: 99213

== ENCOUNTER → 2024-06-18 13:40 | Outpatient (BNVA) | payer OTHER, SELFPAY | PROVIDERS: PCP Internal Medicine; Visit Provider Orthopaedic Surgery | DX: M25.511 Pain in right shoulder (principal); M25.561 Pain in right knee | CPT/HCPCS: 99212 ==

== ENCOUNTER 2024-06-19 12:51 | Outpatient (AMB) | payer OTHER, SELFPAY ==
--- NOTE | 2024-06-19 13:39 | MHC.OFFWIV ---
Intake Vital Signs 06/19/24 13:41 Weight 285 lb BP 120/80 Blood Pressure Location Lt brachial Position Sitting Pulse 70 Pulse Source Pulse Oximeter Pulse Oximetry (%) 96 Oxygen Delivery Method Room Air Intake Visit Reasons: EP Cyst on middle lt finger Intake Note: Patient here for cyst on middle finger on left hand that has been present for about 1 month. Patient Tobacco Use Status: Former Tobacco user Allergies No Known Allergies Allergy (Verified 06/19/24 13:41) Do you need a note to return to daycare/school/sports/work: No HPI HPI Comments History of Present Illness Details 69 y/o male patient who presents to the walk in clinic with c/o small cyst left hand middle finger since Summer 2023. Reports that cyst is tender to touch, filled with sticky clear fluid. Pt is an established Patient of Dr. moe Dermatology. [facility] Medical History (Updated 06/19/24 @ 14:31 by Lisa Jamil NP) Digital mucous cyst of left hand Hematoma Pre-diabetes Hearing loss Diverticulosis Lumbar stenosis Syncope Osteoarthritis BPH (benign prostatic hyperplasia) Heart abnormality GERD (gastroesophageal reflux disease) Anemia Surgical History (Updated 05/01/24 @ 15:16 by Alex Askew MD) History of evacuation of hematoma History of ankle surgery Hx of excision of mass History of decompression of ulnar nerve History of surgery on wrist Hx of total knee replacement Hx of spinal surgery Hx of gastric bypass Hx of shoulder surgery Hx of neck surgery Hx of cataract surgery Hx of colonoscopy History of esophagogastroduodenoscopy (EGD) Family History Mother Intestinal cancer Sister Substance use disorder Social History (Updated 05/01/24 @ 15:03 by Jackie Conner) Household Members: Spouse 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:: , 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 Are you a primary health care coach to a significant other at home: No Do you presently have visiting nurse or other home services: No Alcohol intake: current Alcohol intake frequency: a few times a week Patient Tobacco Use Status: Former Tobacco user Years Smoked: 10 e-Cigarette/Vaping Use: Never Used service: Yes Current occupational status: employed 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, 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 Cognitive needs: No Hearing needs: No Vision needs: Yes Review of Systems Const All systems reviewed & are unremarkable except as noted in HPI and below Physical Exam Vital Signs: Last Vital Signs Pulse 70 06/19/24 13:41 BP 120/80 06/19/24 13:41 Pulse Ox 96 06/19/24 13:41 Oxygen Delivery Method Room Air 06/19/24 13:41 Const General: cooperative and no acute distress Nutritional Appearance: obese Orientation/consciousness: patient oriented x3 Neuro General: patient oriented x3, gait normal and moves all extremities Extrem Hand/finger images: 1. Small translucent cyst filled with clear fluid, round at the tip of middle finger. Psych Speech and movement: Normal speech and movement present Assessment & Plan Assessment & Plan (1) Digital mucous cyst of left hand: Code(s): M67.442 - Ganglion, left hand Plan: Advised to call Dr. Moe's office for an appointment. Ordered a topical Steroid cream Medications: New triamcinolone acetonide 0.025% 1 appl topical BID 15 grams 0RF M67.442 - Ganglion, left hand Coding Level of Care Code Est Pt Level 3 (38966) Diagnoses Digital mucous cyst of left hand M67.442 Time Spent (min) 15
[2024-06-19 13:41] VITALS: BP 120/80; PULSE 70; O2SAT 96
--- OUTSIDE RECORDS SUMMARY | 2024-06-19 15:11 | XMS_ITS | Continuity of Care Document ---
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 [place] Impingement syndrome of right shoulder region Active [...] [facility] [place] [facility] Tinnitus Active Condition [place] Ulnar neuritis Active Condition [facility] L [...] ICD-10-CM L84 Corns and callosities Active Diagnosis [place] Diagnosis: ICD-10-CM E78.5 Hyperlipidemia, unspecified Active Diagnosis [place] Diagnosis: ICD-10-CM Z02.89 Encounter for other administrative [...] NEEDED ORAL ACTIVE PANCHITO [place]AMARRIPA [place] 2021 [facility] IELD ALFUZOSIN HCL 10MG TAB,SA TAKE ONE TABLET BY MOUTH DAILY ORAL ACTIVE PANCHITO [place] spring IELD ASPIRIN 81MG TAB,EC TAKE ONE TABLET BY MOUTH ONCE DAILY TO PREVENT STROKE/H EART ATTACK ORAL ACTIVE 08/17/2024 [id number] 4 MARYAM SMALL 2023 120 [facility] I[facility] ASPIRIN EC (U/D) 81 MG ORAL TBEC TAKE ONE TABLET BY MOUTH ONCE DAILY TO PREVENT STROKE/H EART ATTACK Active 08/17/2024 [id number] 4 LOKESH SMALL 2023 120 [facility] [place] 10MCG/HR PATCH APPLY 1 PATCH TO SKIN EVERY 7 DAYS FOR PAIN (REMOVE PATCH BEFORE APPLYING A NEW PATCH) TRANSD ERMAL DISCONT INUED BY PROVIDE R 02/10/2024 [id number] 4 ANDERS,BE THANY S 2023 4 [facility] [place] 150MCG FILM,BUCCAL PLACE ONE FILM BETWEEN CHEEK AND GUM UNTIL DISSOLVE D EVERY 12 HOURS FOR PAIN BUCCAL DISCONT INUED (EDIT) 11/23/2024 [id number] 4 ANDERS,BE THANY S 2023 60 [facility] [place] [place] 150MCG FILM,BUCCAL PLACE ONE FILM BETWEEN CHEEK AND GUM UNTIL DISSOLVE D EVERY 12 HOURS FOR PAIN BUCCAL DISCONT INUED 09/21/2024 [id number] 4 ANDERS,BE THANY S 2023 60 [facility] [place] [place] 150MCG FILM,BUCCAL PLACE ONE FILM BETWEEN CHEEK AND GUM UNTIL DISSOLVE D EVERY 12 HOURS FOR PAIN BUCCAL DISCONT INUED 03/27/2024 [id number] 4 ANDERS,BE THANY S 2023 60 [place] [facility] [place] [place] 300MCG FILM,BUCCAL PLACE ONE FILM BETWEEN CHEEK AND GUM UNTIL DISSOLVE D EVERY 12 HOURS FOR PAIN BUCCAL ACTIVE 12/06/2024 [id number] SURAJ CURTIS S 2024 60 [facility] [place] [place] 5MCG/HR PATCH APPLY 1 PATCH TO SKIN EVERY 7 DAYS FOR PAIN (REMOVE PATCH BEFORE APPLYING A NEW PATCH) TRANSD ERMAL DISCONT INUED (EDIT) 01/13/2024 [id number] 4 ANDERS,BE THANY S 2023 4 [place] [facility] [place] [place] 7.5MCG/HR PATCH APPLY 1 PATCH TO SKIN EVERY 7 DAYS FOR PAIN (REMOVE PATCH BEFORE APPLYING A NEW PATCH) TRANSD ERMAL DISCONT INUED (EDIT) 01/27/2024 [id number] 4 ANDERS,BE THANY S 2023 2 [place] [facility] [place] [place] 75MCG FILM,BUCCAL PLACE ONE FILM BETWEEN CHEEK AND GUM UNTIL DISSOLVE D EVERY 12 HOURS FOR PAIN BUCCAL DISCONT INUED (EDIT) 03/09/2024 [id number] 4 ANDERS,BE THANY S 2023 60 [facility] [place] DICLOFENAC EPOLAMINE (EQV-FLECTO R) 1.3% PATCH APPLY 1 PATCH TO SKIN TWICE DAILY NEEDED FOR PAIN TRANSD ERMAL ACTIVE 10/19/2024 [id number] 4 ANDERS,BE THANY S 2023 60 [facility] Diclofenac Epolamine (Flector Eq.) Transdermal System 1.3%/Patch Transdermal APPLY 1 PATCH TO SKIN TWICE DAILY NEEDED FOR PAIN Active 10/19/2024 [id number] 4 HEMAL MCNAMARA 2023 60 [facility] Lidocaine (Madyson-Max Eq.) Cream 4% Topical APPLY A SMALL AMOUNT TOPICALL Y TWICE DAILY FOR PAIN 10/28/2023 [id number] 4 HEMAL MCNAMARA 2023 90 [facility] LIDOCAINE 4% CREAM,TOP APPLY A SMALL AMOUNT TOPICALL Y TWICE DAILY FOR PAIN TOPICA L 10/28/2023 [id number] 4 MARILYN MCNAMARA S 2023 90 [facility] [place] NALOXONE HCL 4MG/SPRAY SOLN,SPRAY, NASAL INSTILL 1 SPRAY ONE NOSTRIL ONE TIME NEEDED FOR OPIOID OVERDOSE CALL 911 WITH ADMINIST RATION. REPEAT WITH SECOND DEVICE IF SYMPTOMS RETURN NASAL ACTIVE 07/05/2024 [id number] SURAJ CURTIS S 2024 2 [facility] [place] NALOXONE HCL 4MG/SPRAY SOLN,SPRAY, NASAL INSTILL 1 SPRAY ONE NOSTRIL ONE TIME NEEDED FOR OPIOID OVERDOSE CALL 911 WITH ADMINIST RATION. REPEAT WITH SECOND DEVICE IF SYMPTOMS RETURN NASAL DISCONT INUED 03/27/2024 [id number] 4 MARILYN MCNAMARA S 2023 2 [facility] [place] NALOXONE HCL 4MG/SPRAY SOLN,SPRAY, NASAL INSTILL 1 SPRAY ONE NOSTRIL ONE TIME NEEDED FOR OPIOID OVERDOSE CALL 911 WITH ADMINIST RATION. REPEAT WITH SECOND DEVICE IF SYMPTOMS RETURN NASAL 01/13/2024 [id number] 4 MARILYN MCNAMARA S 2023 2 [facility] [place] Pregabalin (Lyrica) Capsule Conventiona l 100 mg Oral TAKE ONE CAPSULE BY MOUTH THREE TIMES A DAY FOR PAIN ; THIS REPLACES GABAPENT IN Discont inued 10/07/2023 [id number] 4 HEMAL MCNAMARA S 2023 42 [facility] Pregabalin (Lyrica) Capsule Conventiona l 100 mg Oral TAKE ONE CAPSULE BY MOUTH TWICE DAILY ; THIS REPLACES GABAPENT IN Discont inued 09/23/2023 [id number] 4 HEMAL MCNAMARA S 2023 28 [facility] PREGABALIN (U/D) 75 MG ORAL CAP TAKE ONE CAPSULE BY MOUTH THREE TIMES A DAY ; THIS REPLACES GABAPENT IN Discont inued 09/30/2023 [id number] 4 HEMAL MCNAMARA S 2023 42 [place] [facility] PREGABALIN 100MG CAP,ORAL TAKE ONE CAPSULE BY MOUTH THREE TIMES A DAY FOR PAIN ; THIS REPLACES GABAPENT IN ORAL DISCONT INUED (EDIT) 10/07/2023 [id number] 4 MARILYN MCNAMARA S 2023 [facility] PREGABAL[facility] 100MG CAP,ORAL TAKE ONE CAPSULE BY MOUTH TWICE DAILY ; THIS REPLACES GABAPENT IN ORAL DISCONT INUED (EDIT) 09/23/2023 [id number] 4 MARILYN MCNAMARA S 2023 28 [facility] [place] [facility] PREGABALIN 200 MG ORAL CAP TAKE ONE CAPSULE BY MOUTH TWICE DAILY ; THIS REPLACES GABAPENT IN Discont inued 10/14/2023 [id number] 4 HEMAL MCNAMARA S 2023 28 [facility] [place] [facility] PREGABALIN 200 MG ORAL CAP TAKE ONE CAPSULE BY MOUTH TWICE DAILY ; THIS REPLACES GABAPENT IN 10/14/2023 [id number] 4 HEMAL MCNAMARA S 2023 28 [facility] [place] [facility] PREGABALIN 200MG CAP,ORAL TAKE ONE CAPSULE BY MOUTH TWICE DAILY ; THIS REPLACES GABAPENT IN ORAL DISCONT INUED (EDIT) 10/14/2023 [id number] 4 MARILYN MCNAMARA S 2023 28 [facility] PREGABALIN 225 MG ORAL CAP TAKE ONE CAPSULE BY MOUTH TWICE DAILY FOR PAIN 11/18/2023 [id number] 4 HEMAL MCNAMARA S 2023 60 [place] [facility] PREGABALIN 225 MG ORAL CAP TAKE ONE CAPSULE BY MOUTH TWICE DAILY ; THIS REPLACES GABAPENT IN 11/18/2023 [id number] 4 HEMAL MCNAMARA S 2023 60 [place] [facility] PREGABALIN 225 MG ORAL CAP TAKE ONE CAPSULE BY MOUTH TWICE DAILY ; THIS REPLACES GABAPENT IN Discont inued 10/28/2023 [id number] 4 HEMAL MCNAMARA S 2023 60 [facility] PREGABALIN 225MG CAP,ORAL TAKE ONE CAPSULE BY MOUTH TWICE DAILY FOR PAIN ORAL ACTIVE 11/23/2024 [id number] 4 ANDERS,BE THANY S 2023 60 [facility] PREGABALIN 225MG CAP,ORAL TAKE ONE CAPSULE BY MOUTH TWICE DAILY FOR PAIN ORAL DISCONT INUED 08/10/2024 [id number] 4 ANDERS,BE THANY S 2023 60 [facility] PREGABALIN 225MG CAP,ORAL TAKE ONE CAPSULE BY MOUTH TWICE DAILY FOR PAIN ORAL DISCONT INUED 06/15/2024 [id number] 4 ANDERS,MARILYN THANY S 2023 60 [facility] PREGABALIN 225MG CAP,ORAL TAKE ONE CAPSULE BY MOUTH TWICE DAILY FOR PAIN ORAL DISCONT INUED 01/03/2024 [id number] 4 ANDERS,MARILYN THANY S 2023 60 [facility] PREGABALIN 225MG CAP,ORAL TAKE ONE CAPSULE BY MOUTH TWICE DAILY ; THIS REPLACES GABAPENT IN ORAL DISCONT INUED 10/28/2023 [id number] 4 ANDERS,BE THANY S 2023 60 [facility] PREGABALIN 225MG CAP,ORAL TAKE ONE CAPSULE BY MOUTH TWICE DAILY FOR PAIN ORAL 11/18/2023 [id number] 4 ANDERS,MARILYN THANY S 2023 60 [facility] PREGABALIN 75MG CAP,ORAL TAKE ONE CAPSULE BY MOUTH THREE TIMES A DAY ; THIS REPLACES GABAPENT IN ORAL DISCONT INUED (EDIT) 09/30/2023 [id number] 4 ANDERS,BE THANY S 04/05/ 2024 42 [facility] [place] TADALAFIL 5MG TAB TAKE ONE TABLET BY MOUTH DAILY ORAL ACTIVE JAIROUshaAYE PANCHITO [place] 2014 [facility] IELD Allergies, Adverse Reactions, Alerts Combined list of allergies from Department of Defense and Veterans Affairs facilities. It does not include entries that were removed or entered in error. Substance Category Reaction Severity Reaction type Status Date Reported Comments Source Diphenhydrami ne Drug allergy (disorder) active 5 [place] [facility] DIPHENHYDRAMI NE Propensity to adverse reactions to drug (finding) active 5 [facility] Immunizations Combined list of available immunizations from the Department of Defense and Veterans Affairs facilities. Immunization Series Date Given Administered By Site Reaction Lot Number CVX Code Drug Clinical Documentation Manager Status Comments Source INFLUENZA, HIGH-DOSE, TRIVALENT, PF 2023 ROMAIN RUIZ M LEFT DELTO ID [id number] 135 complet ed [facility] [place] INFLUENZA, HIGH-DOSE, QUADRIVALENT 2022 ALEC POON M LEFT DELTO ID [id number] 197 complet ed [facility] [place] PNEUMOCOCCAL CONJUGATE PCV20, POLYSACCHARID E [id number] CONJUGATE, ADJUVANT, PF 2022 SALVATORE GILMORE LEFT DELTO ID [id number] 216 complet ed [facility] IELD INFLUENZA VACCINE, QUADRIVALENT, ADJUVANTED 2021 205 [...] FREE, QUADRIVALENT 2018 171 complet ed Partner: [facility]. Administe red by: [facility] Clinician (NPI=Not Provided) . Partner 2 Lot#: [id number] Mfr: SEQIRUS [facility] [place] [...] FLU,3 YRS (HISTORICAL) 2014 88 complet ed [facility] [place] [facility] FLU,3 YRS (HISTORICAL) 2014 88 complet ed [facility] [place] [facility] [facility] DTAP, UNSPECIFIED [...] Reference Range Date Interpretation Specimen Comments Source ALCOHOL, ETHYL URINE PANEL ETHANOL [MASS/VOLUM E] [...] Dec 14, 2023 11:59 AM Reporting Lab: [facility] [place] [address] [address] Performing Lab: [facility]ITALRSOU[facility]ENTERTRN [facility]ITALUSETS [address] [address] [facility]N [facility]PITALUSE [facility] ALCOHOL, ETHYL URINE PANEL PH OF URINE [...] Dec 14, 2023 11:59 AM Reporting Lab: [facility] [place] [address] [address] Performing Lab: [facility]ITALRSOU[facility] CENTERTRN [facility]ITALUSE[address] [address] [facility] ALCOHOL, ETHYL URINE PANEL CREATININE [MASS/VOLUM [...] Dec 14, 2023 11:59 AM Reporting Lab: [facility]ITALRSOU[facility] CENTERTRN [facility]CHUSETS [address] [address] Performing Lab: [facility]ITALRS[facility]ENTERTRN [facility]ITALUSE[address] [address] [facility]N [facility]ITALUSE [facility] ALCOHOL, ETHYL URINE PANEL SPECIFIC GRAVITY [...] Dec 14, 2023 11:59 AM Reporting Lab: [facility]PITALRLAWRENCE MEDICAL CENTERN [facility]OSPITALUSETS [address] [address] Performing Lab: [facility]N [facility]ITALUSE[address] [address] [facility] AMPHETAMI GARCIA SCREEN PANEL AMPHETAMINE S [...] Dec 14, 2023 11:59 AM Reporting Lab: [facility]ITALRSOU[facility] CENTERTRN [facility]OSPITALUSETS [address] [address] Performing Lab: [facility]N [facility]ITALUSE[address] [address] [facility]N [facility]OSPITALUSE [facility] AMPHETAMI GARCIA SCREEN PANEL PH OF [...] Dec 14, 2023 11:59 AM Reporting Lab: [facility]N [place] [facility] [address] [address] Performing Lab: [facility]N [facility]ITALUSEKINGSBR[facility] [address] [address] [facility]ITALN MASSUSE TS [facility] AMPHETAMI GARCIA SCREEN PANEL CREATININE [MASS/VOLUM [...] Dec 14, 2023 11:59 AM Reporting Lab: [facility]ITALRSOU[facility] CENTERTRN [place] [facility] [address] [address] Performing Lab: [facility]ITALRSOU[facility] CENTERTRN [address]CHUSE[address] [address] [facility] MASSUSE [facility] AMPHETAMI GARCIA SCREEN PANEL SPECIFIC GRAVITY [...] Dec 14, 2023 11:59 AM Reporting Lab: [facility]ITALRSOU[facility] CENTERTRN [facility]OSPITALUSETS [address] [address] Performing Lab: [facility]ITALN [address] [address] [facility] BENZODIAZ EPINES SCREEN PANEL BENZODIAZEP JOVANY [...] Dec 14, 2023 11:59 AM Reporting Lab: [facility]OSPITALN [address] [address] Performing Lab: [address] [address] [facility] BENZODIAZ EPINES SCREEN PANEL PH OF [...] Dec 14, 2023 11:59 AM Reporting Lab: [facility]ITALN [facility]ITALUSE[address] [address] Performing Lab: [place] [address] [address] [facility] BENZODIAZ EPINES SCREEN PANEL CREATININE [MASS/VOLUM [...] Dec 14, 2023 11:59 AM Reporting Lab: [address] [address] Performing Lab: [address] [address] [facility] BENZODIAZ EPINES SCREEN PANEL SPECIFIC GRAVITY [...] Dec 14, 2023 11:59 AM Reporting Lab: [address] [address] Performing Lab: [address] [address] [facility] BUPRENORP ZULEYMA SCREEN PANEL BUPR[place]PH[place] NE [...] Dec 14, 2023 11:59 AM Reporting Lab: [facility]TRN [facility]OSPITALUSETS [address] [address] Performing Lab: [facility]ITALRSOU[facility] CENTERTRN [address] [address] [facility] MASSUSE [facility] BUPRENORP ZULEYMA SCREEN PANEL PH OF URINE [...] Dec 14, 2023 11:59 AM Reporting Lab: [facility]ENTERTRN [facility]PITALUSETS [address] [address] Performing Lab: [address] [address] [facility] BUPRENORP ZULEYMA SCREEN PANEL CREATININE [MASS/VOLUM E] [...] Dec 14, 2023 11:59 AM Reporting Lab: [facility]OSPITALRLAWRENCE MEDICAL CENTERN [address] [address] Performing Lab: [facility]ITALN [address] [address] [facility]ITALN [facility] BUPRENORP ZULEYMA SCREEN PANEL SPECIFIC GRAVITY [...] Dec 14, 2023 11:59 AM Reporting Lab: [facility]ITALN [address] [address] Performing Lab: [facility]PITALRLAWRENCE MEDICAL CENTERN [address] [address] [facility] CANNABINO IDS SCREEN PANEL CANNABINOID S [PRESENCE] [...] Dec 14, 2023 11:59 AM Reporting Lab: [facility]PITALRLAWRENCE MEDICAL CENTERN [address] [address] Performing Lab: [address] [address] [facility] CANNABINO IDS SCREEN PANEL PH OF URINE [...] Dec 14, 2023 11:59 AM Reporting Lab: [facility] HOSPITALN [employer] [address] Performing Lab: [facility] [employer] [address] [facility] CANNABINO IDS SCREEN PANEL CREATININE [MASS/VOLUM [...] Dec 14, 2023 11:59 AM Reporting Lab: [facility]ITALN Indigo IdentitywareUSE[address] [address] Performing Lab: [facility]ITALN Centre for SightUSE[address] [address] [facility] Centre [facility]ightAR[facility] CANNABINO IDS SCREEN PANEL SPECIFIC GRAVITY [...] Dec 14, 2023 11:59 AM Reporting Lab: [place] [facility] [facility] [address] [address] Performing Lab: [facility]OSPITALRL TRN [facility] HOSPITALUSETS [address] [address] [facility]N [facility] COCAINE SCREEN PANEL COCAINE [PRESENCE] IN [...] Dec 14, 2023 11:59 AM Reporting Lab: [place] [facility] [place] [facility] [address] [address] Performing Lab: [facility]OSPITALRL WSTRN [facility]PITALUSETS [address] [address] [facility]N [facility] HOSPITALUSE [facility] COCAINE SCREEN PANEL PH OF URINE 5.8 [...] Dec 14, 2023 11:59 AM Reporting Lab: [facility]PITALRL WSTRN [facility]ELOPMENT[facility] CENTERCHUSETS [address] [address] Performing Lab: [facility]PITALRSOUTH [facility] CENTERTRN [facility]PITALUSE[address] [address] [facility] COCAINE SCREEN PANEL CREATININE [MASS/VOLUM E] [...] Dec 14, 2023 11:59 AM Reporting Lab: [address] [address] Performing Lab: [address] [address] [facility] COCAINE SCREEN PANEL SPECIFIC GRAVITY OF URINE [...] Dec 14, 2023 11:59 AM Reporting Lab: [address] [address] Performing Lab: [address] [address] [facility] FENTANYL SCREEN PANEL FENTANYL [PRESENCE] IN [...] Dec 14, 2023 11:59 AM Reporting Lab: [address] [address] Performing Lab: [address] [address] [facility] FENTANYL SCREEN PANEL PH OF URINE [...] Dec 14, 2023 11:59 AM Reporting Lab: [facility]N [address] [address] Performing Lab: [address] [address] [facility] FENTANYL SCREEN PANEL CREATININE [MASS/VOLUM E] [...] N NOT SENT BY LAB. Ordering Provider: ANDERS,RACH ANY S Report Released Date/Time: Dec 14, 2023 11:59 AM Reporting Lab: [facility]OSPITALRLAWRENCE MEDICAL CENTERN [facility] [address] [address] Performing Lab: [facility]OSPITALRLAWRENCE MEDICAL CENTERN [facility]PITALUSEKINGSBR[facility] [address] [address] [facility] FENTANYL SCREEN PANEL SPECIFIC GRAVITY OF [...] Dec 14, 2023 11:59 AM Reporting Lab: [facility]PITALRLAWRENCE MEDICAL CENTERN [facility]ITALUSE[address] [address] Performing Lab: [address] [address] [facility] METHADONE SCREEN METHADONE [PRESENCE] IN URINE BY SCREEN METHOD None detect ed(Neg ative) 12/13 L Specimen Type: URINE Comment: DERECK test are qualitative , any L or H flags only indicate a [facility] alert was sent. Ordering Provider: RACH MCNAMARA Report Released Date/Time: Dec 14, 2023 11:59 AM Reporting Lab: [facility]OSPITALRLAWRENCE MEDICAL CENTERN [facility]PITALUSEKINGSBR[facility] [address] [address] Performing Lab: [facility]N [facility] [address] [facility] [address] [facility] OPIATES SCREEN PANEL OPIATES [PRESENCE] IN [...] Dec 14, 2023 11:59 AM Reporting Lab: [facility]ENTERTRN [facility]ITALUSE[address] [address] Performing Lab: [facility]PITALRSOUTH [facility] CENTERTRN [facility]PITALUSE[address] [address] [facility] OPIATES SCREEN PANEL PH OF URINE [...] Dec 14, 2023 11:59 AM Reporting Lab: [facility]N [facility]ITALUSE[address] [address] Performing Lab: [facility]PITALRLAWRENCE MEDICAL CENTERN [facility]PITALUSE[address] [address] [facility] OPIATES SCREEN PANEL CREATININE [MASS/VOLUM E] [...] 14, 2023 11:59 AM Reporting Lab: [facility] [address] [address] Performing Lab: [facility]ITALN [facility]PITALUSE[address] [address] [facility] OPIATES SCREEN PANEL SPECIFIC GRAVITY OF [...] Dec 14, 2023 11:59 AM Reporting Lab: [address] [address] Performing Lab: [address] [address] [facility] OXYCODONE SCREEN PANEL OXYCODONE [PRESENCE] IN [...] Dec 14, 2023 11:59 AM Reporting Lab: [facility]ITALN [facility]ITALUSE[address] [address] Performing Lab: [address] [address] [facility] OXYCODONE SCREEN PANEL PH OF URINE [...] Dec 14, 2023 11:59 AM Reporting Lab: [facility]ENTERTRN [place] [facility] [address] [address] Performing Lab: [facility]PITALN MASSUSE[address] [address] [facility] Centre for SightUSE [facility] OXYCODONE SCREEN PANEL CREATININE [MASS/VOLUM E] IN [...] Dec 14, 2023 11:59 AM Reporting Lab: [facility]ITALN Centre for SightUSE[address] [address] Performing Lab: [facility] Centre for SightUSE[address] [address] [facility] Centre for SightUSE [facility] OXYCODONE SCREEN PANEL SPECIFIC GRAVITY OF URINE [...] Lab: [facility] [place] [facility] [address] [address] Performing Lab: [facility] [place] [facility] [address] [address] [facility] Encounters [...] [facility] AD[place] [id number] MICKY NEFF 02/09 [facility] [id number] Diagnos is: ICD-10- CM Z46.1 Encount er for fitting and adjustm ent of hearing aid<br/ > Cinda GRANADOS 02/13 [facility] Outpatient Encounter [id number] LEV SAMUEL 02/13 [facility] Out[facility]counter [id number] 04/03 [facility] Out[facility]counter [id number] 05/16 [facility] Out[facility]counter [id number] 05/17 [facility] HEARING AID REPAIR/MOD IFYING [id number] Diagnos is: ICD-10- CM Z46.1 Encount er for fitting and adjustm ent of hearing aid<br/ > ERIC BRUCE CHRISTINE JONY 05/24 [facility] Out[facility] Encounter [id number] 05/29 [facility] HEARING AID REPAIR/MOD IFYING [id number] Diagnos is: ICD-10- CM H90.3 Sensori neural hearing loss, bilater al
ERIC BRUCE CHRISTINE JONY 06/07 [facility] CONFORMITY EVALUATION [id number] Diagnos is: ICD-10- CM Z46.1 Encount er for fitting and adjustm ent of hearing aid<br/ > SENIOR,ALBERT OLE L 07/06 [facility] Outpatient Encounter [id number] Diagnos is: ICD-10- CM Z02.89 Encount er for other adminis trative examina tions<b r/> MICAELA ERAZO L 08/14 [facility] En[facility] [id number] 08/16 [facility] [facility] En[facility] [id number] 08/16 [facility] [place] O/P EST HI 40 MIN [id number] Diagnos is: ICD-10- CM E78.5 Hyperli pidemia , unspeci fied
TAYLOR SMALL 08/16 [place] [facility] Out[facility] Encounter [id number] 08/21 [facility] Encounter [id number] 08/22 [facility] MTMS BY PHARM ADDL 15 MIN [id number] Diagnos is: ICD-10- CM M54.50 Low back pain, unspeci fied
RICKY MCNAMARA 08/23 [facility] Encounter [id number] 08/26 [facility] OFFICE O/P EST HI 40 MIN [id number] Diagnos is: ICD-10- CM G89.29 Other chronic pain
KUPFERSCHM ID,HUNG B 08/27 [facility] Out[facility] Encounter [id number] 08/29 [facility] MTMS BY PHARM ADDL 15 MIN [id number] Diagnos is: ICD-10- CM M54.50 Low back pain, unspeci fied
RICKY MCNAMARA 08/30 [facility] HEARING AID FITTING/CH ECKING [id number] Diagnos is: ICD-10- CM Z46.1 Encount er for fitting and adjustm ent of hearing aid<br/ > Cinda GRANADOS 08/30 [facility] Out[facility] Encounter [id number] 09/05 [facility] MTMS BY PHARM ADDL 15 MIN [id number] Diagnos is: ICD-10- CM M54.50 Low back pain, unspeci fied
RICKY MCNAMARA S 09/06 [facility] En[facility] [id number] 09/06 [facility] Out[facility] Encounter [id number] 09/12 [facility] MTMS BY PHARM ADDL 15 MIN [id number] Diagnos is: ICD-10- CM M54.50 Low back pain, unspeci fied
RICKY MCNAMARA S 09/13 [facility] En[facility] [id number] 09/19 [facility] MTMS BY PHARM ADDL 15 MIN [id number] Diagnos is: ICD-10- CM M54.50 Low back pain, unspeci fied
RICKY MCNAMARA S 09/20 [facility] En[facility] [id number] 09/24 [facility] Out[facility] Encounter [id number] 09/26 [facility] MTMS BY PHARM ADDL 15 MIN [id number] Diagnos is: ICD-10- CM M54.50 Low back pain, unspeci fied
RICKY MCNAMARA S 09/27 [facility] Encounter [id number] 09/27 [facility] HEARING AID REPAIR/MOD IFYING [id number] Diagnos is: ICD-10- CM Z46.1 Encount er for fitting and adjustm ent of hearing aid<br/ > SENIOR,ALBERT OLE L 09/30 [facility] [place] OFF[place] O/P EST LOW 20 MIN [id number] Diagnos is: ICD-10- CM L84 Corns and callosi ties
DAWSON LEBRON ES F 10/10 [place] [facility] Out[facility] Encounter [id number] 10/17 [facility] MTMS BY PHARM ADDL 15 MIN [id number] Diagnos is: ICD-10- CM M54.50 Low back pain, unspeci fied
ANDERSRICKY S 10/18 [facility]MGMT [facility]-10 [id number] Diagnos is: ICD-10- CM M54.50 Low back pain, unspeci fied
PRANAV VIRAMONTES 10/18 [place] [facility] Out[facility] Encounter [id number] 11/11 [facility] MTMS BY PHARM ADDL 15 MIN [id number] Diagnos is: ICD-10- CM M54.50 Low back pain, unspeci fied
RICKY MCNAMARA S 11/12 [facility] En[facility] [id number] 11/27 [facility] Out[facility] Encounter [id number] 12/03 [facility] QNHP OL DIG ASSMT&MGMT 5-10 [id number] Diagnos is: ICD-10- CM M54.50 Low back pain, unspeci fied
RICKY MCNAMARA S 12/03 [facility] Out[facility] Encounter [id number] 12/12 [facility] MTMS BY PHARM ADDL 15 MIN [id number] Diagnos is: ICD-10- CM M54.50 Low back pain, unspeci fied
RICKY MCNAMARA S 12/13 [facility] Out[facility] Encounter [id number] 12/13 [facility] Out[facility] Encounter [id number] 12/13 [facility] Out[facility] Encounter [id number]/25 [facility] MTMS BY PHARM ADDL 15 MIN [id number] 1. Diagnos is: ICD-10- CM M54.50 Low back pain, unspeci fied
RICKY MCNAMARA S 12/27 [facility] Out[facility] Encounter [id number] 1.01/09 [facility] MTMS BY PHARM ADDL 15 MIN [id number] 1. Diagnos is: ICD-10- CM M54.50 Low back pain, unspeci fied
RICKY MCNAMARA S 01/10 [facility] HEARING AID REPAIR/MOD IFYING [id number] 1. Diagnos is: ICD-10- CM Z46.1 Encount er for fitting and adjustm ent of hearing aid<br/ > SENIOR,ALBERT GRANT L 01/13 [facility] Out[facility] Encounter [id number] 02/06 [facility] MTMS BY PHARM ADDL 15 MIN [id number] 1. Diagnos is: ICD-10- CM M54.50 Low back pain, unspeci fied
RICKY MCNAMARA S 02/07 [facility] IMMUNIZATI ON ADMIN [id number] Diagnos is: ICD-10- CM Z23 Encount er for immuniz ation<b r/> ASHU RIGGS 02/07 [facility] Out[facility] Encounter [id number] 02/07 [facility] HC PRO PHONE CALL 5-10 MIN [id number] Diagnos is: ICD-10- CM G89.29 Other chronic pain
EMET,GRAHAMEN EEN 02/17 [facility] Out[facility] Encounter [id number] [facility] MTMS BY PHARM ADDL 15 MIN [id number] 1. Diagnos is: ICD-10- CM M54.50 Low back pain, unspeci fied
RICKY MCNAMARA S 02/25 [facility] Out[facility] Encounter [id number] 1.03/20 [facility] MTMS BY PHARM ADDL 15 MIN [id number] 1. Diagnos is: ICD-10- CM M54.50 Low back pain, unspeci fied
ANDERSBET ROBEL S 03/21 [facility] Out[facility] Encounter [id number] [facility] Outpatient [facility]counter [id number] 1.04/21 [facility] MTMS BY PHARM ADDL 15 MIN [id number] 1. Diagnos is: ICD-10- CM M54.50 Low back pain, unspeci fied
ANDERSRICKY ROBEL S 04/22 [facility] Out[facility] Encounter [id number] 04/22 [facility] Outpatient Encounter [id number]/22 [facility] MTMS BY PHARM ADDL 15 MIN [id number] Diagnos is: ICD-10- CM M54.50 Low back pain, unspeci fied
RICKY MCNAMARA ROBEL S 05/23 [facility] Out[facility] Encounter [id number] 05/29 [facility] Out[facility] Encounter [id number] 06/04 [facility] OFFICE O/P EST HI 40 MIN [id number] Diagnos is: ICD-10- CM M54.50 Low back pain, unspeci fied
NATHANIEL CURTIS S 06/05 [facility] HEARING AID FITTING/CH ECKING [id number] Diagnos is: ICD-10- CM Z46.1 Encount er for fitting and adjustm ent of hearing aid<br/ > Cinda GRANADOS 06/05 [facility] Outpatient Encounter [id number] 06/05 [facility] Social History Combined list of available smoking, tobacco, and other social history from Department of Defense and Veterans Affairs facilities. Social History Type Response Date Comment Sourc e Tobacco smoking status FLIS IA-TOBACCO FORMER USER 11/01/2022 [facility] 11/01/2022 [place] History of tobacco use IA-TOBACCO NEVER USED [facility] of tobacco use IA-TOBACCO FORMER USER 10/19/2020 [place] [facility] History of tobacco use QUIT TOBACCO USE > 7 YEARS AGO 08/16/2017 stopped smoking over 25 years ago [facility] History of tobacco use QUIT TOBACCO USE > 7 YEARS AGO 08/15/2016 quit 25 years ago [place] History of tobacco use QUIT TOBACCO USE > 7 YEARS AGO 08/13/2015 smoked cig, ~20/day, quit 20 yrs ago [place] History of tobacco use QUIT TOBACCO USE > 7 YEARS AGO 08/10/2014 quit 20+ yrs ago [place] This section is an empty social history section. [facility] Plan of Care List of future care activities from Department of Veterans Affairs facilities. Additional future care activities may be listed in the Assessment and Plan section. Date/Time Care Activity Care Activity Detail Facili ty 06/27/2024 AMBULATORY - MEDICINE AM[facility]ULATORY [facility] [place] [facility] [place] [facility] 06/30/2024 AMBULATORY - MEDICINE AMBULATORY - [facility]ICI [facility] [place] [facility] 06/30/2024 AMBULATORY - MEDICINE AMBULATORY - MEDICI [place] [facility] [place] [facility] 06/30/2024 AMBULATORY - MEDICINE AMBULATORY - MEDICI [place] [facility] [place] [facility] 08/21/2024 AMBULATORY - MEDICINE AMBULATORY - MEDICI [facility] 09[facility]02/2024 AMBULATORY - REHAB MEDICINE AMBULATORY - REHAB MEDICINE [facility] [place] [facility] 06/05/2024 Consult Order INTERDISCIPLINAR Y PAIN TEAM (OUTPT) Cons [employer] [facility] Advance Directives List of completed, amended, or rescinded Advance Directives on record at [facility] of [facility] facilities. An actual copy of the Directive is not included. Date Advance Directive Provider Source 12/02/2020 ADVANCE DIRECTIVE ZAIRE COMER
== END 2024-06-19 15:12 | disposition home or self-care (01) ==
PROVIDERS: PCP Internal Medicine; Visit Provider Nurse Practitioner Family
DX: M67.442 Ganglion, left hand (principal)

== ENCOUNTER → 2024-06-19 12:51 | Outpatient (BNVA) | payer OTHER, SELFPAY | PROVIDERS: PCP Internal Medicine; Visit Provider Nurse Practitioner Family | DX: M67.442 Ganglion, left hand (principal) | CPT/HCPCS: 99212 ==

== ENCOUNTER 2024-09-17 08:07 | Outpatient (REF) | payer OTHER, SELFPAY ==
--- NOTE | ~2024-09-17 | XR_ITS ---
EXAMINATION: XR KNEE, RIGHT CLINICAL INFORMATION: M25.561 - Pain in right knee COMPARISON: None available. TECHNIQUE: Three views of the right knee. FINDINGS: There has been total right knee arthroplasty. Associated patellar resurfacing. Femoral, and tibial components are intact, well seated, in anatomic alignment. No periprosthetic complication or lucency. No evidence of joint effusion. Soft tissues demonstrate vascular calcifications but are otherwise normal. XR/XR knee RT 3V IMPRESSION: Total right knee arthroplasty without complication evident. Electronically signed by: James Morley MD 09/19/2024 09:55 AM EDT
--- OUTSIDE RECORDS SUMMARY | 2024-09-18 08:17 | XMS_ITS | Clinical Summary ---
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 9) with comorbidity (CMS/[facility] V24, CMS/[facility] V28) 06/15/2005 Overview (04/05/2024): s/p gastric bypass in MAR 2003 Encounters Date Type Department Care Team Description 08/27/2024 Lab Requisition [facility] - Main Lab [address] [facility] [email or web address] [address] Haven Ruiz MD Benign prostatic hyperplasia with lower urinary tract symptoms 06/27/2024 Telephone [facility] - [address] [address] Edwina Stephens, RIDDHI Reschedule from Last 3 Months Immunizations Name Administration Dates Next Due H1N1 Inj Preservative Free 07/19/2009 Hepatitis B (Fblapji-L-Tukcb , Recombivax HB-Adult) 19yo and older 01/05/2016,08/04/2015,07/07/2015 [...] Date Site/Laterality Comments STOMACH SURGERY 03/2003 PROCEDURE: MA UNLISTED PROCEDURE STOMACH; COMMENT: gastric bypass surgery SHOULDER SURGERY 03/2006 PROCEDURE: HISTORICAL SHOULDER SURGERY; COMMENT: left and right WRIST MASS EXCISION PROCEDURE: MA EXCISION GANGLION WRIST DORSAL/VOLAR PRIMARY; COMMENT: right COLONOSCOPY 07/15/2007 PROCEDURE: MA COLONOSCOPY FLX DX W/COLLJ SPEC WHEN PFRMD; COMMENT: Negative OTHER SURGICAL HISTORY 1995 PROCEDURE: MA ARTHROPLASTY ANKLE W/IMPLANT; COMMENT: left MULTIPLE TOOTH EXTRACTIONS PROCEDURE: HISTORICAL DENTAL EXTRACTION; COMMENT: Dr. Gotti KNEE ARTHROSCOPY 07/2012 PROCEDURE: MA ARTHROSCOPY AID TX SPINE&/FX KNEE W/O FIXJ; [...] hemorrhoids, repeat 5 years. ESOPHAGOGASTRODUODENOSCOPY 09/22/2020 PROCEDURE: MA EGD TRANSORAL BIOPSY SINGLE/MULTIPLE; COMMENT: Visually normal [...] Description 10/29/2024 1:10 PM EDT Office Visit [facility] [address] [facility] [address] [place] [phone] Edwina Stephens NP [address] [place] [address] Health Maintenance Due Date Last [...] LAB CHEMISTRY METHOD 08/27/2024 12:00 PM EDT [facility] Blood Venous blood specimen / Unknown 08/27/2024 8:28 AM EDT 08/27/2024 11:24 AM EDT Narrative [facility] - 08/27/2024 12:00 PM EDT The Siemens Advia Centaur Chemiluminescent Immunoassay is used. Results obtained with different assay methods or kits cannot be used interchangeably. Results cannot be interpreted as absolute evidence of the presence or absence of malignant disease. Haven Ruiz MD LAB BLOOD ORDERABLES Fin al Result [facility] [address] [place] [address], * (ABNORMAL) Lipid panel (02/25/2023) Pathologist [facility] LDL/HDL Ratio 3 0 - 4 Triglycerides 94 0 - 150 mg/dL Cholesterol 204(A) 0 - 200 mg/dL HDL 75 >=40 mg/dL LDL Cholesterol 111(A) 0 - 100 mg/dL Blood Venous blood specimen / Unknown [facility] Provider LAB BLOOD ORDERABLES [place] l Result * Abdominal Aortic Aneurysm Screen (07/29/2021) Pathologist [facility] Abdominal Aortic Aneurysm (AAA) Screening ABSTRACTED Anatomical Region Laterality Modality Other Historical Provider HEALTH MAINTENANCE Final Result * Colonoscopy (06/18/2018) Pathologist [facility] Colonoscopy ABSTRACTED Anatomical Region Laterality Modality Other [facility] [place] [employer] [employer] MAINTENANCE Final Result * Hepatitis C Screening (09/21/2012) Pathologist [facility] Hepatitis C Screening ABSTRACTED Historical [place] [employer]OVING HEALTH MAINTENANCE Final Result from Last 3 Months or Most Recently Relevant to Health Maintenance Insurance [facility] Care Teams Wastewater Treatment Plant Operator Relationship Specialty Start Date End Date Gudelia Lynne MD [address] [place] [address] PCP - General Internal Medicine 12/10/19
--- OUTSIDE RECORDS SUMMARY | 2024-09-18 08:18 | XMS_ITS | Continuity of Care Document ---
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 [place] Impingement syndrome of right shoulder region Active [...] [facility] [place] [facility] Tinnitus Active Condition [place] Ulnar neuritis Active Condition [facility] [place] [facility] Diagnosis: ICD-10-CM E66.9 Obesity, unspecified Active Diagnosis [place] Diagnosis: ICD-10-CM L60.0 Ingrowing nail Active Diagnosis [facility] Diagnosis: ICD-10-CM Z46.1 Encounter for fitting [...] ICD-10-CM L84 Corns and callosities Active Diagnosis [place] Diagnosis: ICD-10-CM E78.5 Hyperlipidemia, unspecified Active Diagnosis [place] Diagnosis: ICD-10-CM Z02.89 Encounter for other administrative examinations Active Diagnosis [facility] [place] [facility] Diagnosis: ICD-10-CM H90.3 Sensorineural hearing loss, bilateral Active Diagnosis [facility] [place] [facility] Medications Combined list of outpatient medications from [...] THREE TIMES A DAY NEEDED ORAL ACTIVE JAIRO-GR [place] 2021 [facility] [place] ALFUZOSIN HCL 10MG TAB,SA TAKE ONE TABLET BY MOUTH DAILY ORAL ACTIVE JAIRO-GR STEPHANIA,CYNTH IA 2014 [place] ASPIRIN 81MG TAB,EC TAKE ONE TABLET BY MOUTH ONCE DAILY TO PREVENT STROKE/H EART ATTACK ORAL ACTIVE 08/01/2025 [id number] 5 Erum MAXWELL 2024 120 [place] ASPIRIN 81MG TAB,EC TAKE ONE TABLET BY MOUTH ONCE DAILY TO PREVENT STROKE/H EART ATTACK ORAL DISCONT INUED 08/17/2024 [id number] MARYAM SMALL 2023 120 [place] ASPIRIN EC (U/D) 81 MG ORAL TBEC TAKE ONE TABLET BY MOUTH ONCE DAILY TO PREVENT STROKE/H EART ATTACK 08/17/2024 [id number] 4 LOKESH SMALL 2023 120 [facility] [place] 10[place]/HR PATCH APPLY 1 PATCH TO SKIN EVERY 7 DAYS FOR PAIN (REMOVE PATCH BEFORE APPLYING A NEW PATCH) TRANSD ERMAL DISCONT INUED BY PROVIDE R 02/10/2024 [id number] MARILYN MCNAMARA THANY S 2023 4 [facility] [place] [facility] [place] 150MCG FILM,BUCCAL PLACE ONE FILM BETWEEN CHEEK AND GUM UNTIL DISSOLVE D EVERY 12 HOURS FOR PAIN BUCCAL DISCONT INUED (EDIT) 11/23/2024 [id number] 4 ANDERS,BE THANY S 2023 60 [facility] [place] [facility] [place] 150MCG FILM,BUCCAL PLACE ONE FILM BETWEEN CHEEK AND GUM UNTIL DISSOLVE D EVERY 12 HOURS FOR PAIN BUCCAL DISCONT INUED 09/21/2024 [id number] 4 ANDERS,BE THANY S 2023 60 [facility] [place] [facility] [place] 150MCG FILM,BUCCAL PLACE ONE FILM BETWEEN CHEEK AND GUM UNTIL DISSOLVE D EVERY 12 HOURS FOR PAIN BUCCAL DISCONT INUED 03/27/2024 [id number] 4 ANDERS,BE THANY S 2023 60 [facility] [place] [facility] [facility] [place] 300MCG FILM,BUCCAL PLACE ONE FILM BETWEEN CHEEK AND GUM UNTIL DISSOLVE D EVERY 12 HOURS FOR PAIN BUCCAL ACTIVE 01/25/2025 [id number] 5 ANDERS,BE THANY S 2024 60 [facility] [place] [facility] [place] 300MCG FILM,BUCCAL PLACE ONE FILM BETWEEN CHEEK AND GUM UNTIL DISSOLVE D EVERY 12 HOURS FOR PAIN BUCCAL DISCONT INUED 12/06/2024 [id number] 5 SURAJ CURTIS LLIAM S 2024 60 [facility] [place] [facility] [facility] [place] 5MCG/HR PATCH APPLY 1 PATCH TO SKIN EVERY 7 DAYS FOR PAIN (REMOVE PATCH BEFORE APPLYING A NEW PATCH) TRANSD ERMAL DISCONT INUED (EDIT) 01/13/2024 [id number] 4 ANDERS,BE THANY S 2023 4 [facility] [place] [facility] [facility] [place] 7.5MCG/HR PATCH APPLY 1 PATCH TO SKIN EVERY 7 DAYS FOR PAIN (REMOVE PATCH BEFORE APPLYING A NEW PATCH) TRANSD ERMAL DISCONT INUED (EDIT) 01/27/2024 [id number] 4 ANDERS,BE THANY S 2023 2 [facility] [place] [facility] [place] 75MCG FILM,BUCCAL PLACE ONE FILM BETWEEN CHEEK AND GUM UNTIL DISSOLVE D EVERY 12 HOURS FOR PAIN BUCCAL DISCONT INUED (EDIT) 03/09/2024 [id number] 4 ANDERS,BE THANY S 2023 60 [facility] [place] [facility] DICLOFENAC EPOLAMINE (EQV-FLECTO R) 1.3% PATCH APPLY 1 PATCH TO SKIN TWICE DAILY NEEDED FOR PAIN TRANSD ERMAL ACTIVE 10/19/2024 [id number] 4 ANDERS,MARILYN KING S 2023 60 [facility] [place] [facility] Diclofenac Epolamine (Flector Eq.) Transdermal System 1.3%/Patch Transdermal APPLY 1 PATCH TO SKIN TWICE DAILY NEEDED FOR PAIN Active 10/19/2024 [id number] 4 HEMAL MCNAMARA S 2023 60 [facility] Lidocaine (Madyson-Max Eq.) Cream 4% Topical APPLY A SMALL AMOUNT TOPICALL Y TWICE DAILY FOR PAIN 10/28/2023 [id number] 4 HEMAL MCNAMARA S 2023 90 [facility] LIDOCAINE 4% CREAM,TOP APPLY A SMALL AMOUNT TOPICALL Y TWICE DAILY FOR PAIN TOPICA L 10/28/2023 [id number] 4 ANDERS,BE FERNANDO S 2023 90 [facility] [place] [facility] NALOXONE HCL 4MG/SPRAY SOLN,SPRAY, NASAL INSTILL 1 SPRAY ONE NOSTRIL ONE TIME NEEDED FOR OPIOID OVERDOSE CALL 911 WITH ADMINIST RATION. REPEAT WITH SECOND DEVICE IF SYMPTOMS RETURN NASAL DISCONT INUED 03/27/2024 [id number] 4 ANDERS,BE FERNANDO S 2023 2 [facility] [place] [facility] NALOXONE HCL 4MG/SPRAY SOLN,SPRAY, NASAL INSTILL 1 SPRAY ONE NOSTRIL ONE TIME NEEDED FOR OPIOID OVERDOSE CALL 911 WITH ADMINIST RATION. REPEAT WITH SECOND DEVICE IF SYMPTOMS RETURN NASAL 07/05/2024 [id number] 5 SURAJ CURTISKaren S 2024 2 [facility] [place] [facility] NALOXONE HCL 4MG/SPRAY SOLN,SPRAY, NASAL INSTILL 1 SPRAY ONE NOSTRIL ONE TIME NEEDED FOR OPIOID OVERDOSE CALL 911 WITH ADMINIST RATION. REPEAT WITH SECOND DEVICE IF SYMPTOMS RETURN NASAL 01/13/2024 [id number] 4 ANDERS,BE THANY S 2023 2 [facility] [place] [facility] Pregabalin (Lyrica) Capsule Conventiona l 100 mg Oral TAKE ONE CAPSULE BY MOUTH THREE TIMES A DAY FOR PAIN ; THIS REPLACES GABAPENT IN Discont inued 10/07/2023 [id number] 4 LACEY MCNAMARAY S 2023 42 [facility] Pregabalin (Lyrica) Capsule Conventiona l 100 mg Oral TAKE ONE CAPSULE BY MOUTH TWICE DAILY ; THIS REPLACES GABAPENT IN Discont inued 09/23/2023 [id number] 4 LACEY MCNAMARAY S 2023 28 [facility] PREGABALIN (U/D) 75 MG ORAL CAP TAKE ONE CAPSULE BY MOUTH THREE TIMES A DAY ; THIS REPLACES GABAPENT IN Discont inued 09/30/2023 [id number] 4 LACEY MCNAMARAY S 2023 42 [facility] PREGABALIN 100MG CAP,ORAL TAKE ONE CAPSULE BY MOUTH THREE TIMES A DAY FOR PAIN ; THIS REPLACES GABAPENT IN ORAL DISCONT INUED (EDIT) 10/07/2023 [id number] 4 ANDERS,BE THANY S 2023 42 [facility] [place] [facility] [facility] PREGABALIN 100MG CAP,ORAL TAKE ONE CAPSULE BY MOUTH TWICE DAILY ; THIS REPLACES GABAPENT IN ORAL DISCONT INUED (EDIT) 09/23/2023 [id number] 4 ANDERS,BE THANY S 2023 [address] [facility] [place] [facility] PREGABALIN 200 MG ORAL CAP TAKE ONE CAPSULE BY MOUTH TWICE DAILY ; THIS REPLACES GABAPENT IN Discont inued 10/14/2023 [id number] 4 RICKY MCNAMARAHANY S 2023 28 [facility] PREGABALIN 200 MG ORAL CAP TAKE ONE CAPSULE BY MOUTH TWICE DAILY ; THIS REPLACES GABAPENT IN 10/14/2023 [id number] 4 HEMAL MCNAMARA S 2023 28 [facility] PREGABALIN 200MG CAP,ORAL TAKE ONE CAPSULE BY MOUTH TWICE DAILY ; THIS REPLACES GABAPENT IN ORAL DISCONT INUED (EDIT) 10/14/2023 [id number] 4 MARILYN MCNAMARAY S 2023 28 [facility] [place] [facility] PREGABALIN 225 MG ORAL CAP TAKE ONE CAPSULE BY MOUTH TWICE DAILY FOR PAIN 11/18/2023 [id number] 4 HEMAL MCNAMARA S 2023 60 [facility] PREGABALIN 225 MG ORAL CAP TAKE ONE CAPSULE BY MOUTH TWICE DAILY ; THIS REPLACES GABAPENT IN 11/18/2023 [id number] 4 HEMAL MCNAMARA S 2023 60 [facility] PREGABALIN 225 MG ORAL CAP TAKE ONE CAPSULE BY MOUTH TWICE DAILY ; THIS REPLACES GABAPENT IN Discont inued 10/28/2023 [id number] 4 HEMAL MCNAMARA S 2023 60 [facility] PREGABALIN 225MG CAP,ORAL TAKE ONE CAPSULE BY MOUTH TWICE DAILY FOR PAIN ORAL DISCONT INUED (EDIT) 12/28/2024 [id number] 5 MARILYN MCNAMARAY S 2024 60 [facility] [place] [facility] PREGABALIN 225MG CAP,ORAL TAKE ONE CAPSULE BY MOUTH TWICE DAILY FOR PAIN ORAL DISCONT INUED 11/23/2024 [id number] 5 MARILYN MCNAMARA THANY S 2023 60 [facility] [place] [facility] PREGABALIN 225MG CAP,ORAL TAKE ONE CAPSULE BY MOUTH TWICE DAILY FOR PAIN ORAL DISCONT INUED 08/10/2024 [id number] MARILYN MCNAMARA THANY S 2023 60 [facility] [place] [facility] PREGABALIN 225MG CAP,ORAL TAKE ONE CAPSULE BY MOUTH TWICE DAILY FOR PAIN ORAL DISCONT INUED 06/15/2024 [id number] 4 MAIRLYN MCNAMARA THANY S 2023 60 [facility] [place] [facility] PREGABALIN 225MG CAP,ORAL TAKE ONE CAPSULE BY MOUTH TWICE DAILY FOR PAIN ORAL DISCONT INUED 01/03/2024 [id number] 4 ANDERS,MARILYN THANY S 2023 60 [facility] [place] [facility] PREGABALIN 225MG CAP,ORAL TAKE ONE CAPSULE BY MOUTH TWICE DAILY ; THIS REPLACES GABAPENT IN ORAL DISCONT INUED 10/28/2023 [id number] 4 ANDERS,BE THANY S 2023 60 [facility] [place] [facility] PREGABALIN 225MG CAP,ORAL TAKE ONE CAPSULE BY MOUTH TWICE DAILY FOR PAIN ORAL 11/18/2023 [id number] 4 ANDERS,BE THANY S 2023 60 [facility] [place] [facility] PREGABALIN 300MG CAP,ORAL TAKE ONE CAPSULE BY MOUTH TWICE DAILY FOR PAIN ORAL ACTIVE 03/01/2025 [id number] 5 ANDERS,BE THANY S 2024 60 [facility] [place] [facility] PREGABALIN 75MG CAP,ORAL TAKE ONE CAPSULE BY MOUTH THREE TIMES A DAY ; THIS REPLACES GABAPENT IN ORAL DISCONT INUED (EDIT) 09/30/2023 [id number] 4 ANDERS,BE FERNANDO S 2023 42 [facility] [place] [facility] TADALAFIL 5MG TAB TAKE ONE TABLET BY MOUTH DAILY ORAL ACTIVE PANCHITO ZAMARRIPA 2014 [facility] [place] Allergies, Adverse Reactions, Alerts Combined list of allergies from Department of Defense and Veterans Affairs facilities. It does not include entries that were removed or entered in error. Substance Category Reaction Severity Reaction type Status Date Reported Comments Source Diphenhydrami ne Drug [facility] DIPHENHYDRAMI NE Propensity to adverse reactions to drug (finding) active 5 [facility] Immunizations Combined list of available immunizations from the Department of Defense and Veterans Affairs facilities. Immunization Series Date Given Administered By Site Reaction Lot Number CVX Code Drug Corporate Account Executive Status Comments Source INFLUENZA, HIGH-DOSE, TRIVALENT, PF 2023 JOSE RUIZJ TRINA M LEFT DELTO ID [id number] 135 complet ed [facility] [place] [facility] INFLUENZA, HIGH-DOSE, QUADRIVALENT 2022 ALEC POON M LEFT DELTO ID [id number] A 197 complet ed Completed Series, [facility] [place] [facility] PNEUMOCOCCAL CONJUGATE PCV20, POLYSACCHARID E [id number] CONJUGATE, ADJUVANT, PF 2022 SALVATORE GILMORE LEFT DELTO ID [id number] 216 complet ed ADMINISTE [facility] AT [facility], [facility] [place] INFLUENZA VACCINE, QUADRIVALENT, ADJUVANTED 2021 205 complet ed [facility] [place] [facility] INFLUENZA, UNSPECIFIED [...] INFLUENZA, UNSPECIFIED FORMULATION 2019 88 complet ed [facility] [place] [facility] ZOSTER RECOMBINANT 2 2019 187 complet ed Verified with pharmacis t. Unable to send documenta tion [facility] [place] [facility] ZOSTER RECOMBINANT 1 2019 187 complet ed Verified with pharmacis t. Unable to send documenta tion [facility] [place] [facility] INFLUENZA, INJECTABLE, MDCK, PRESERVATIVE FREE, QUADRIVALENT 2018 171 complet ed 02, Partner: [facility]. Administe red by: [facility] Clinician (NPI=Not Provided) . Partner 2 Lot#: [id number] Mfr: [facility] [place] [...] FLU,3 YRS (HISTORICAL) 2014 88 complet ed [facility] [place] [facility] FLU,3 YRS (HISTORICAL) 2014 88 complet ed [facility] [place] [facility] DTAP, [...] Reference Range Date Interpretation Specimen Comments Source BASIC METABOLIC PANEL (non-fast ing) UREA NITROGEN [MASS/VOLUM E] IN SERUM OR PLASMA 8 mg/dL 7 - 25 08/21 Specimen Type: SERUM No comment entered. Ordering Provider: HIEN MAXWELL A Report Released Date/Time: Aug 19, 2024 09:44 AM Reporting Lab: [facility] [address] [address] Performing Lab: [facility] [address] [address] [facility] BASIC METABOLIC PANEL (non-fast ing) GLUCOSE [MASS/VOLUM E] IN SERUM OR PLASMA 80 mg/dL 65 - 100 08/21 Specimen Type: SERUM No comment entered. Ordering Provider: HIEN MAXWELL A Report Released Date/Time: Aug 19, 2024 09:44 AM Reporting Lab: [facility] [address] [address] Performing Lab: [facility]ETRN [facility] [address] [address] [place] BASIC METABOLIC PANEL (non-fast ing) SODIUM [MOLES/VOLU ME] IN SERUM OR PLASMA 136 mmol/L 135 - 145 08/21 Specimen Type: SERUM No comment entered. Ordering Provider: HIEN MAXWELL A Report Released Date/Time: Aug 19, 2024 09:44 AM Reporting Lab: [facility] [address] [address] Performing Lab: [facility] CENTERUSE[address] [address] [place] BASIC METABOLIC PANEL (non-fast ing) POTASSIUM [MOLES/VOLU ME] IN SERUM OR PLASMA 3.8 mmol/L 3.5 - 5.0 08/21 Specimen Type: SERUM No comment entered. Ordering Provider: HIEN MAXWELL A Report Released Date/Time: Aug 19, 2024 09:44 AM Reporting Lab: [facility]RN [facility] [address] [address] Performing Lab: [facility] TRN [facility] [address] [address] [place] BASIC METABOLIC PANEL (non-fast ing) CHLORIDE [MOLES/VOLU ME] IN SERUM OR PLASMA 107 mmol/L 100 - 110 08/21 Specimen Type: SERUM No comment entered. Ordering Provider: HIEN MAXWELL A Report Released Date/Time: Aug 19, 2024 09:44 AM Reporting Lab: [facility] [address] [address] Performing Lab: [facility]RN [facility] [address] [address] [place] BASIC METABOLIC PANEL (non-fast ing) CARBON DIOXIDE, TOTAL [MOLES/VOLU ME] IN SERUM OR PLASMA 21 meq/L 20 - 30 08/21 Specimen Type: SERUM No comment entered. Ordering Provider: MAXWELL,HIEN ID A Report Released Date/Time: Aug 19, 2024 09:44 AM Reporting Lab: [address] [address] Performing Lab: [address] [address] [place] BASIC METABOLIC PANEL (non-fast ing) CALCIUM [MASS/VOLUM E] IN SERUM OR PLASMA 8.3 mg/dL 8.5 - 10.2 08/21 L Specimen Type: SERUM No comment entered. Ordering Provider: HIEN MAXWELL A Report Released Date/Time: Aug 19, 2024 09:44 AM Reporting Lab: [address] [address] Performing Lab: [address] [address] [place] BASIC METABOLIC PANEL (non-fast ing) CREATININE [MASS/VOLUM E] IN SERUM OR PLASMA 0.77 mg/dL 0.50 - 1.40 08/21 Specimen Type: SERUM No comment entered. Ordering Provider: HIEN MAXWELL A Report Released Date/Time: Aug 19, 2024 09:44 AM Reporting Lab: [address] [address] Performing Lab: [address] [address] [place] BASIC METABOLIC PANEL (non-fast ing) GLOMERULAR FILTRATION RATE/1.73 SQ M.PREDICTED [VOLUME RATE/AREA] IN SERUM, PLASMA OR BLOOD BY CREATININE- BASED FORMULA (CKD-EPI 2020) >90mL/ min 60 08/21 Specimen Type: SERUM No comment entered. Ordering Provider: HIEN MAXWELL A Report Released Date/Time: Aug 19, 2024 09:44 AM Reporting Lab: [facility] [address] [address] Performing Lab: [address] [address] [place] CBC AND DIFF (AUTO) LEUKOCYTES [#/VOLUME] IN BLOOD BY AUTOMATED COUNT 7.57 10*3/u L 4.50 - 11.00 08/21 Specimen Type: BLOOD No comment entered. Ordering Provider: HIEN MAXWELL A Report Released Date/Time: Aug 19, 2024 09:44 AM Reporting Lab: [facility]USKEGEETRN [address] [address] Performing Lab: [facility] [address] [address] [place] CBC AND DIFF (AUTO) ERYTHROCYTE S [#/VOLUME] IN BLOOD BY AUTOMATED COUNT 4.38 10*6/u L 4.23 - 5.66 08/21 Specimen Type: BLOOD No comment entered. Ordering Provider: HIEN MAXWELL A Report Released Date/Time: Aug 19, 2024 09:44 AM Reporting Lab: [facility] [address] [address] Performing Lab: [facility] [address] [address] [place] CBC AND DIFF (AUTO) HEMOGLOBIN [MASS/VOLUM E] IN BLOOD 13.4 g/dL 12.8 - 17 08/21 Specimen Type: BLOOD No comment entered. Ordering Provider: HIEN MAXWELL A Report Released Date/Time: Aug 19, 2024 09:44 AM Reporting Lab: [facility] [address] [address] Performing Lab: [facility]ENTERUSE[address] [address] [place] CBC AND DIFF (AUTO) HEMATOCRIT [VOLUME FRACTION] OF BLOOD BY AUTOMATED COUNT 38.7 39.2 - 50.4 08/21 L Specimen Type: BLOOD No comment entered. Ordering Provider: HIEN MAXWELL A Report Released Date/Time: Aug 19, 2024 09:44 AM Reporting Lab: [facility]ETRN [facility]ENTERUSE[address] [address] Performing Lab: [facility] [address] [address] [place] CBC AND DIFF (AUTO) MCV [ENTITIC VOLUME] BY AUTOMATED COUNT 88.4 fL 82 - 99 08/21 Specimen Type: BLOOD No comment entered. Ordering Provider: HIEN MAXWELL A Report Released Date/Time: Aug 19, 2024 09:44 AM Reporting Lab: [facility]ENTER[facility]ETS [facility] [address] [facility] [address] Performing Lab: [facility] W[facility]N [address] [address] [place] CBC AND DIFF (AUTO) MCHC [MASS/VOLUM E] BY AUTOMATED COUNT 34.6 g/dL 30.8 - 35.1 08/21 Specimen Type: BLOOD No comment entered. Ordering Provider: HIEN MAXWELL A Report Released Date/Time: Aug 19, 2024 09:44 AM Reporting Lab: [facility] [address] [address] Performing Lab: [facility]N [address] [address] [place] CBC AND DIFF (AUTO) PLATELETS [#/VOLUME] IN BLOOD BY AUTOMATED COUNT 176 10*3/u L 140 - 360 08/21 Specimen Type: BLOOD No comment entered. Ordering Provider: HIEN MAXWELL A Report Released Date/Time: Aug 19, 2024 09:44 AM Reporting Lab: [facility] [address] [address] Performing Lab: [facility]ENTER[facility] [address] [place] CBC AND DIFF (AUTO) PLATELET MEAN VOLUME [ENTITIC VOLUME] IN BLOOD BY AUTOMATED COUNT 10.4 fL 9.2 - 12.4 08/21 Specimen Type: BLOOD No comment entered. Ordering Provider: HIEN MAXWELL A Report Released Date/Time: Aug 19, 2024 09:44 AM Reporting Lab: [facility]ENTERUSETS [address] [address] Performing Lab: [facility] [address] [address] [place] CBC AND DIFF (AUTO) ERYTHROCYTE DISTRIBUTIO N WIDTH [RATIO] BY AUTOMATED COUNT 12.5 12.0 - 16.0 08/21 Specimen Type: BLOOD No comment entered. Ordering Provider: HIEN MAXWELL A Report Released Date/Time: Aug 19, 2024 09:44 AM Reporting Lab: [facility] [place] [address] [address] Performing Lab: [facility] [place] [address] [address] [place] CBC AND DIFF (AUTO) MONOCYTES [#/VOLUME] IN BLOOD BY AUTOMATED COUNT 0.63 10*3/u L 0.30 - 1.10 08/21 Specimen Type: BLOOD No comment entered. Ordering Provider: HIEN MAXWELL A Report Released Date/Time: Aug 19, 2024 09:44 AM Reporting Lab: [facility] [address] [address] Performing Lab: [facility]GEETRN [facility]ENTERUSE[address] [address] [place] CBC AND DIFF (AUTO) MCH [ENTITIC MASS] BY AUTOMATED COUNT 30.6 pg 26.2 - 32.6 08/21 Specimen Type: BLOOD No comment entered. Ordering Provider: HIEN MAXWELL A Report Released Date/Time: Aug 19, 2024 09:44 AM Reporting Lab: [facility] TRN [place] [address] Performing Lab: [facility]–TUSKEGEETRN [facility] CENTERUSETS [address] [address] [place] CBC AND DIFF (AUTO) NEUTROPHILS /100 LEUKOCYTES IN BLOOD BY AUTOMATED COUNT 72.7 43.7 - 75.8 08/21 Specimen Type: BLOOD No comment entered. Ordering Provider: HIEN MAXWELL A Report Released Date/Time: Aug 19, 2024 09:44 AM Reporting Lab: [facility] [place] [address] [address] Performing Lab: [facility]N [facility]ENTERUSE[address] [address] [place] CBC AND DIFF (AUTO) LYMPHOCYTES /100 LEUKOCYTES IN BLOOD BY AUTOMATED COUNT 16.1 14.0 - 42.3 08/21 Specimen Type: BLOOD No comment entered. Ordering Provider: HIEN MAXWELL A Report Released Date/Time: Aug 19, 2024 09:44 AM Reporting Lab: [facility] W[facility]N [facility]ENTERUSETS [address] [address] Performing Lab: [facility] [address] [address] [place] CBC AND DIFF (AUTO) MONOCYTES/1 00 LEUKOCYTES IN BLOOD BY AUTOMATED COUNT 8.3 5.1 - 13.7 08/21 Specimen Type: BLOOD No comment entered. Ordering Provider: HIEN MAXWELL A Report Released Date/Time: Aug 19, 2024 09:44 AM Reporting Lab: [facility]USKEGEETRN [address] [address] Performing Lab: [facility] CLA[facility]N [address] [address] [place] CBC AND DIFF (AUTO) EOSINOPHILS /100 LEUKOCYTES IN BLOOD BY AUTOMATED COUNT 2.1 0.4 - 6.8 08/21 Specimen Type: BLOOD No comment entered. Ordering Provider: HIEN MAXWELL A Report Released Date/Time: Aug 19, 2024 09:44 AM Reporting Lab: [facility]–TUSKEGEETRN [facility]USETS [address] [address] Performing Lab: [facility]–TUSKEGEETRN [address] [address] [place] CBC AND DIFF (AUTO) BASOPHILS/1 00 LEUKOCYTES IN BLOOD BY AUTOMATED COUNT 0.4 0.1 - 2.0 08/21 Specimen Type: BLOOD No comment entered. Ordering Provider: HIEN MAXWELL A Report Released Date/Time: Aug 19, 2024 09:44 AM Reporting Lab: [facility]ENTERUSETS [address] [address] Performing Lab: [facility]–TUSKEGEETRN [facility]ENTERUSE[address] [address] [place] CBC AND DIFF (AUTO) NEUTROPHILS [#/VOLUME] IN BLOOD BY AUTOMATED COUNT 5.50 10*3/u L 2.20 - 7.60 08/21 Specimen Type: BLOOD No comment entered. Ordering Provider: HIEN MAXWELL A Report Released Date/Time: Aug 19, 2024 09:44 AM Reporting Lab: [facility] [facility] [address] [address] Performing Lab: [facility] [address] [address] [place] CBC AND DIFF (AUTO) LYMPHOCYTES [#/VOLUME] IN BLOOD BY AUTOMATED COUNT 1.22 10*3/u L 1.00 - 3.20 08/21 Specimen Type: BLOOD No comment entered. Ordering Provider: HIEN MAXWELL A Report Released Date/Time: Aug 19, 2024 09:44 AM Reporting Lab: [facility] [address] [address] Performing Lab: [facility] [address] [address] [place] CBC AND DIFF (AUTO) EOSINOPHILS [#/VOLUME] IN BLOOD BY AUTOMATED COUNT 0.16 10*3/u L 0.03 - 0.44 08/21 Specimen Type: BLOOD No comment entered. Ordering Provider: HIEN MAXWELL A Report Released Date/Time: Aug 19, 2024 09:44 AM Reporting Lab: [facility] [address] [address] Performing Lab: [facility] [address] [place] CBC AND DIFF (AUTO) BASOPHILS [#/VOLUME] IN BLOOD BY AUTOMATED COUNT 0.03 10*3/u L 0.01 - 0.13 08/21 Specimen Type: BLOOD No comment entered. Ordering Provider: HIEN MAXWELL A Report Released Date/Time: Aug 19, 2024 09:44 AM Reporting Lab: [facility] [address] [address] Performing Lab: [facility] [address] [place] CBC AND DIFF (AUTO) IMMATURE GRANULOCYTE S/100 LEUKOCYTES IN BLOOD BY AUTOMATED COUNT 0.4 0.0 - 0.7 08/21 Specimen Type: BLOOD No comment entered. Ordering Provider: HIEN MAXWELL A Report Released Date/Time: Aug 19, 2024 09:44 AM Reporting Lab: [facility] [place] [facility] [address] [facility] [address] Performing Lab: [facility] [address] [address] [place] CBC AND DIFF (AUTO) IMMATURE GRANULOCYTE S [#/VOLUME] IN BLOOD BY AUTOMATED COUNT 0.03 10*3/u L 0.00 - 0.06 08/21 Specimen Type: BLOOD No comment entered. Ordering Provider: HIEN MAXWELL A Report Released Date/Time: Aug 19, 2024 09:44 AM Reporting Lab: [facility] [address] [address] Performing Lab: [facility] [address] [address] [place] CBC AND DIFF (AUTO) NUCLEATED ERYTHROCYTE S/100 LEUKOCYTES [RATIO] IN BLOOD BY AUTOMATED COUNT 0.0 0.0 - 0.0 08/21 Specimen Type: BLOOD No comment entered. Ordering Provider: HIEN MAXWELL A Report Released Date/Time: Aug 19, 2024 09:44 AM Reporting Lab: [facility] [address] [address] Performing Lab: [facility] [address] [address] [place] CBC AND DIFF (AUTO) NUCLEATED ERYTHROCYTE S [#/VOLUME] IN BLOOD BY AUTOMATED COUNT 0.00 10*3/u L 0.00 - 0.00 08/21 Specimen Type: BLOOD No comment entered. Ordering Provider: HIEN MAXWELL A Report Released Date/Time: Aug 19, 2024 09:44 AM Reporting Lab: [facility] [address] [address] Performing Lab: [facility] [address] [address] [place] HEMOGLOBI N A1C PANEL HEMOGLOBIN A1C/HEMOGLO BIN.TOTAL IN BLOOD BY IFCC PROTOCOL 5.6 4.0 - 5.6 08/21 Specimen [...] Aug 19, 2024 09:44 AM Reporting Lab: [facility]Link[address] [address] Performing Lab: [address] [address] [employer] LIPID PANEL, NON FASTING CHOLESTEROL [MASS/VOLUM E] IN SERUM OR PLASMA 173 mg/dL 08/21 Specimen Type: SERUM No comment entered. Ordering Provider: HIEN MAXWELL A Report Released Date/Time: Aug 19, 2024 09:44 AM Reporting Lab: [facility] [employer] [address] Performing Lab: [address] [address] [employer] LIPID PANEL, NON FASTING TRIGLYCERID E [MASS/VOLUM E] IN SERUM OR PLASMA 100 mg/dL 0 - 150 08/21 Specimen Type: SERUM No comment entered. Ordering Provider: HIEN MAXWELL A Report Released Date/Time: Aug 19, 2024 09:44 AM Reporting Lab: [facility] [employer] [address] Performing Lab: [address] [address] [facility] LIPID PANEL, NON FASTING CHOLESTEROL IN LDL [MASS/VOLUM E] IN SERUM OR PLASMA BY CALCULATION 90 mg/dL 0 - 129 08/21 Specimen Type: SERUM No comment entered. Ordering Provider: HIEN MAXWELL A Report Released Date/Time: Aug 19, 2024 09:44 AM Reporting Lab: [facility] [address] [facility] [address] Performing Lab: [facility] [address] [address] [place] LIPID PANEL, NON FASTING CHOLESTEROL .TOTAL/CHOL ESTEROL IN HDL [MASS RATIO] IN SERUM OR PLASMA 2.7 08/21 Specimen Type: SERUM No comment entered. Ordering Provider: HIEN MAXWELL A Report Released Date/Time: Aug 19, 2024 09:44 AM Reporting Lab: [address] [address] Performing Lab: [facility] [address] [address] [place] LIPID PANEL, NON FASTING CHOLESTEROL IN HDL [MASS/VOLUM E] IN SERUM OR PLASMA 63 mg/dL 40 - 60 08/21 H Specimen Type: SERUM No comment entered. Ordering Provider: HIEN MAXWELL A Report Released Date/Time: Aug 19, 2024 09:44 AM Reporting Lab: [facility] [address] [address] Performing Lab: [facility] [address] [place] LIVER FUNCTION PROTEIN [MASS/VOLUM E] IN SERUM OR PLASMA 7.0 g/dL 6.0 - 8.3 08/21 Specimen Type: SERUM No comment entered. Ordering Provider: HIEN MAXWELL A Report Released Date/Time: Aug 19, 2024 09:44 AM Reporting Lab: [facility] [address] [address] Performing Lab: [facility] [address] [place] LIVER FUNCTION ALBUMIN [MASS/VOLUM E] IN SERUM OR PLASMA BY BROMOCRESOL PURPLE (BCP) DYE BINDING METHOD 3.7 g/dL 3.5 - 5.0 08/21 Specimen Type: SERUM No comment entered. Ordering Provider: HIEN MAXWELL A Report Released Date/Time: Aug 19, 2024 09:44 AM Reporting Lab: [facility] [place] [facility] [address] [facility] [address] Performing Lab: [facility] [address] [address] [place] LIVER FUNCTION ALKALINE PHOSPHATASE [ENZYMATIC ACTIVITY/VO LUME] IN SERUM OR PLASMA 73 U/L 40 - 150 08/21 Specimen Type: SERUM No comment entered. Ordering Provider: HIEN MAXWELL A Report Released Date/Time: Aug 19, 2024 09:44 AM Reporting Lab: [facility] [address] Performing Lab: [facility] [place] [address] [address] [place] LIVER FUNCTION ASPARTATE AMINOTRANSF ERASE [ENZYMATIC ACTIVITY/VO LUME] IN SERUM OR PLASMA BY WITH P-5'-P 17 U/L 5 - 34 08/21 Specimen Type: SERUM No comment entered. Ordering Provider: HIEN MAXWELL A Report Released Date/Time: Aug 19, 2024 09:44 AM Reporting Lab: [facility] [place] [address] [address] Performing Lab: [facility] [place] [address] [address] [place] LIVER FUNCTION ALANINE AMINOTRANSF ERASE [ENZYMATIC ACTIVITY/VO LUME] IN SERUM OR PLASMA BY WITH P-5'-P 16 U/L 08/21 Specimen Type: SERUM No comment entered. Ordering Provider: HIEN MAXWELL A Report Released Date/Time: Aug 19, 2024 09:44 AM Reporting Lab: [facility] [place] [address] [address] Performing Lab: [facility] [address] [address] [place] LIVER FUNCTION BILIRUBIN.T OTAL [MASS/VOLUM E] IN SERUM OR PLASMA 0.5 mg/dL 0.2 - 1.2 08/21 Specimen Type: SERUM No comment entered. Ordering Provider: HIEN MAXWELL A Report Released Date/Time: Aug 19, 2024 09:44 AM Reporting Lab: [place] [address] Performing Lab: [address] [address] [place] TSH THYROTROPIN [UNITS/VOLU ME] IN SERUM OR PLASMA BY DETECTION LIMIT <= 0.005 MIU/L 0.55 u[IU]/ mL 0.35 - 5.00 08/21 Specimen Type: SERUM No comment entered. Ordering Provider: HIEN MAXWELL A Report Released Date/Time: Aug 19, 2024 09:44 AM Reporting Lab: [address] [address] Performing Lab: [place] [address] [place] PSA PROSTATE SPECIFIC AG [MASS/VOLUM E] IN SERUM OR PLASMA BY IMMUNOASSAY 0.63 ng/mL 0.00 - 4.00 08/21 Specimen Type: SERUM No comment entered. Ordering Provider: HIEN MAXWELL A Report Released Date/Time: Aug 21, 2024 01:04 PM Reporting Lab: [facility] [address] [address] Performing Lab: [address] [address] [place] ALCOHOL, ETHYL URINE PANEL ETHANOL [MASS/VOLUM E] [...] AM Reporting Lab: [facility] [place] [address] [address] Performing Lab: [facility] [place] [address] [address] [facility] [place] [facility] ALCOHOL, ETHYL URINE PANEL PH [...] Dec 14, 2023 11:59 AM Reporting Lab: [facility] [place] [address] [address] Performing Lab: [facility] [place] [address] [address] [facility] [place] [facility] ALCOHOL, ETHYL URINE PANEL CREATININE [MASS/VOLUM E] [...] Dec 14, 2023 11:59 AM Reporting Lab: [facility] [place] [address] [address] Performing Lab: [facility] [place] [address] [address] [facility] [place] [facility] ALCOHOL, ETHYL URINE PANEL SPECIFIC GRAVITY OF [...] Dec 14, 2023 11:59 AM Reporting Lab: [facility] [place] [facility] [address] [facility] [address] Performing Lab: [facility] [address] [facility] AMPHETAMI GARCIA SCREEN PANEL AMPHETAMINE S [PRESENCE] [...] Dec 14, 2023 11:59 AM Reporting Lab: [facility] [address] Performing Lab: [facility] [address] [facility] AMPHETAMI GARCIA SCREEN PANEL PH OF [...] Dec 14, 2023 11:59 AM Reporting Lab: [facility] [place] [facility] [address] [facility] [address] Performing Lab: [facility] [place] [facility] [address] [facility] [address] [facility] [place] [facility] AMPHETAMI GARCIA SCREEN PANEL CREATININE [...] Dec 14, 2023 11:59 AM Reporting Lab: [facility] [place] [facility] [address] [facility] [address] Performing Lab: [facility] [place] [address] [address] [facility] [place] [facility] AMPHETAMI GARCIA SCREEN PANEL SPECIFIC [...] Dec 14, 2023 11:59 AM Reporting Lab: [facility] [place] [address] [address] Performing Lab: [facility] [place] [address] [address] [facility] [facility] METHADONE SCREEN METHADONE [PRESENCE] IN URINE BY SCREEN METHOD None detect ed(Neg ative) 12/13 L Specimen Type: URINE Comment: DERECK test are qualitative , any L or H flags only indicate a [facility] alert was sent. Ordering Provider: RACH MCNAMARA Report Released Date/Time: Dec 14, 2023 11:59 AM Reporting Lab: [facility] [place] [facility] [address] [facility] [address] Performing Lab: [facility] [place] [facility] [address] [facility] [address] [facility] [place] [facility] Vital Signs Combined list of inpatient and outpatient Vital Signs from Department of Defense and Veterans Affairs, ranging from 12 months to all on record, depending upon the facility. Vital Sign Value Date Comments Source SYSTOLIC BLOOD PRESSURE 114 08/21/2024 13:27:23 [place] DIASTOLIC BLOOD PRESSURE 72 08/21/2024 13:27:23 [place] PULSE OXIMETRY 96 08/21/2024 13:27:23 [place] WEIGHT 285.2 08/21/2024 13:27:23 [place] BMI 39 kg/m2 08/21/2024 13:27:23 [place] TEMPERATURE 97.5 08/21/2024 13:27:23 [place] PULSE 86 08/21/2024 13:27:23 [place] Encounters Combined list of: 1) Encounters from Department of Veterans Affairs facilities going backup to the last 18 months, not all [facility] inpatient encounters are included; 2) Encounters from the Department of Defense facilities going backup to 280 months. Location Location Details Encounter Type Encounter Number Reason For Visit Attending Provider ADM Date DC Date Status Disposition Source [facility] [place] [facility] Outpatient Encounter [id number] 04/03 [facility] [place] [facility] [place] [facility] Outpatient Encounter [id number] 05/16 [facility] [place] [facility] [facility] [place] [facility] Outpatient Encounter [id number] 05/17 [facility] [place] [facility] [place] HEARING AID REPAIR/MOD IFYING [id number] Diagnos is: ICD-10- CM Z46.1 Encount er for fitting and adjustm ent of hearing aid ERIC BRUCE 05/24 [facility] [place] En[facility] [id number] 05/29 [facility] [place] [place] HEARING AID REPAIR/MOD IFYING [id number] Diagnos is: ICD-10- CM H90.3 Sensori neural hearing loss, ERIC Simmons 06/07 [facility] [place] [place] CONFORMITY EVALUATION [id number] Diagnos is: ICD-10- CM Z46.1 Encount er for fitting and adjustm ent of hearing aid SENIOR,ALBERT GRANT L 07/06 [facility] [place] Out[facility] Encounter [id number] Diagnos is: ICD-10- CM Z02.89 Encount er for other adminis trative examina MICAELA Wagoner 08/14 [facility] [place] En[facility] [id number] 08/16 [facility] [place] Encounter [id number] 08/16 [facility] [place] [facility] [facility] OFFICE O/[place] 40 MIN [id number] Diagnos is: ICD-10- CM E78.5 Hyperli pidemia , unspeci fied SMALL,TAYLOR RICHARDSON J 08/16 [place] [facility] Out[facility] Encounter [id number] 08/21 [facility] [place] En[facility] [id number] 08/22 [facility] [place] MTMS BY PHARM ADDL 15 MIN [id number] Diagnos is: ICD-10- CM M54.50 Low back pain, unspeci fied RICKY MCNAMARA 08/23 [facility] [place] En[facility] [id number] 08/26 [facility] [place] [facility] [place] 40 MIN [id number] Diagnos is: ICD-10- CM G89.29 Other chronic pain KUPFERSCHM ID,HUNG B 08/27 [facility] [place] Out[facility] En[facility] [id number] 08/29 [facility] [place] MTMS BY PHARM ADDL 15 MIN [id number] Diagnos is: ICD-10- CM M54.50 Low back pain, unspeci fied RICKY MCNAMARA 08/30 [facility] [place] HEARING AID FITTING/CH ECKING [id number] Diagnos is: ICD-10- CM Z46.1 Encount er for fitting and adjustm ent of hearing aid Cinda GRANADOS 08/30 [facility] [place] Encounter [id number] 09/05 [facility] [place] [facility] [place] MTMS BY PHARM ADDL 15 MIN [id number] Diagnos is: ICD-10- CM M54.50 Low back pain, unspeci fied RICKY MCNAMARA S 09/06 [facility] [place] En[facility] [id number] 09/06 [facility] [place] En[facility] [id number] 09/12 [facility] [place] [facility] MTMS BY PHARM ADDL 15 MIN [id number] Diagnos is: ICD-10- CM M54.50 Low back pain, unspeci fied RICKY MCNAMARA S 09/13 [facility] [place] [facility] En[facility] [id number] 09/19 [facility] [place] MTMS BY PHARM ADDL 15 MIN [id number] Diagnos is: ICD-10- CM M54.50 Low back pain, unspeci fied RICKY MCNAMARA S 09/20 [facility] [place] En[facility] [id number] 09/24 [facility] [place] En[facility] [id number] 09/26 [facility] [place] MTMS BY PHARM ADDL 15 MIN [id number] Diagnos is: ICD-10- CM M54.50 Low back pain, unspeci fied RICKY MCNAMARA S 09/27 [facility] [place] En[facility] [id number] 09[facility]27 [facility] [place] HEARING AID REPAIR/MOD IFYING [id number] Diagnos is: ICD-10- CM Z46.1 Encount er for fitting and adjustm ent of hearing aid SENIOR,ALBERT GRANT L 09/30 [facility] [place] OFFICE O/P EST LOW 20 MIN [id number] Diagnos is: ICD-10- CM L84 Corns and callosi ties OLEG LEBRONAngel ES F 10/10 [place] [facility] En[facility] [id number] 10/17 [facility] [place] MTMS BY PHARM ADDL 15 MIN [id number] Diagnos is: ICD-10- CM M54.50 Low back pain, unspeci fied RICKY MCNAMARA S 10/18 [facility] [place] QNHP OL DIG ASSMT&MGMT 5-10 [id number] Diagnos is: ICD-10- CM M54.50 Low back pain, unspeci fied PRANAV VIRAMONTES 10/18 [place] [facility] Encounter [id number] 11/11 [facility] [place] MTMS BY PHARM ADDL 15 MIN [id number] Diagnos is: ICD-10- CM M54.50 Low back pain, unspeci fied RICKY MCNAMARA ROBEL S 11/12 [facility] [place] En[facility] [id number] 11/27 [facility] [place] En[facility] [id number] 12/03 [facility] [place] QNHP OL DIG ASSMT&MGMT 5-10 [id number] Diagnos is: ICD-10- CM M54.50 Low back pain, unspeci fied RICKY MCNAMARA ROBEL S 12/03 [facility] [place] [facility] En[facility] [id number] 12/12 [facility] [place] [facility] MTMS BY PHARM ADDL 15 MIN [id number] Diagnos is: ICD-10- CM M54.50 Low back pain, unspeci fied RICKY MCNAMARA ROBEL S 12/13 [facility] [place] En[facility] [id number] 12/13 [facility] [place] En[facility] [id number] 12/13 [facility] [place] En[facility] [id number] 12/25 [facility] [place] MTMS BY PHARM ADDL 15 MIN [id number] Diagnos is: ICD-10- CM M54.50 Low back pain, unspeci fied RICKY MCNAMARA S 12/27 [facility] [place] En[facility] [id number]/09 [facility] [place] MTMS BY PHARM ADDL 15 MIN [id number] 1. Diagnos is: ICD-10- CM M54.50 Low back pain, unspeci fied RICKY MCNAMARA S 01/10 [facility] HEARING AID REPAIR/MOD IFYING [id number] 1. Diagnos is: ICD-10- CM Z46.1 Encount er for fitting and adjustm ent of hearing aid SENIORALBERT L 01/13 [facility] En[facility] [id number] 02/06 [facility] [place] MTMS BY PHARM ADDL 15 MIN [id number] Diagnos is: ICD-10- CM M54.50 Low back pain, unspeci fied RICKY MCNAMARA S 02/07 [facility] [place] [id number] Diagnos is: ICD-10- CM Z23 Encount er for immuniz ASHU Diaz 02/07 [facility] [place] En[facility] [id number] 02/07 [facility] [place] HC PRO PHONE CALL 5-10 MIN [id number] Diagnos is: ICD-10- CM G89.29 Other chronic pain URSULA SCOTT 02/17 [facility] Out[facility] Encounter [id number] 02/24 [facility] MTMS BY PHARM ADDL 15 MIN [id number] Diagnos is: ICD-10- CM M54.50 Low back pain, unspeci fied RICKY MCNAMARA S 02/25 [facility] En[facility] [id number] 03/20 [facility] MTMS BY PHARM ADDL 15 MIN [id number] 1. Diagnos is: ICD-10- CM M54.50 Low back pain, unspeci fied RICKY MCNAMARA S 03/21 [facility] Encounter [id number] [facility] Encounter [id number] 04/21 [facility] MTMS BY PHARM ADDL 15 MIN [id number] 1. Diagnos is: ICD-10- CM M54.50 Low back pain, unspeci fied RICKY MCNAMARA S 04/22 [facility] En[facility] [id number] 04/22 [facility]counter [id number] [facility] MTMS BY PHARM ADDL 15 MIN [id number] Diagnos is: ICD-10- CM M54.50 Low back pain, unspeci fied ANDERSRICKY MAHONEY S 05/23 [facility] Encounter [id number] 05/29 [facility] En[facility] [id number] [facility] OFFICE O/P EST HI 40 MIN [id number] Diagnos is: ICD-10- CM M54.50 Low back pain, unspeci fied CUTLERNATHANIEL MELODY S 06/05 [facility] HEARING AID FITTING/CH ECKING [id number] Diagnos is: ICD-10- CM Z46.1 Encount er for fitting and adjustm ent of hearing aid Cinda GRANADOS 06/05 [facility] Out[facility] Encounter [id number] [facility] En[facility] [id number] 06/26 [facility] MTMS BY PHARM ADDL 15 MIN [id number] Diagnos is: ICD-10- CM M54.50 Low back pain, unspeci fied RICKY MCNAMARA S 06/27 [facility] En[facility] [id number] 06/27 [facility] OFF[place] O/P [place] 60 MIN [id number] Diagnos is: ICD-10- CM G89.4 Chronic pain syndrom e ROGELIO LAY THI 06/30 [facility] [facility] PT EVAL MOD COMPLEX 30 MIN [id number] Diagnos is: ICD-10- CM G89.4 Chronic pain syndrom e URSULA SCOTT EEN 06/30 [facility] ASSMT/REAS SESSMENT [id number] Diagnos is: ICD-10- CM G89.4 Chronic pain syndrom e JIMMY PALN IFALEX 06/30 [facility] Outpatient Encounter [id number] 07/24 [facility] MTMS BY PHARM ADDL 15 MIN [id number] Diagnos is: ICD-10- CM M54.50 Low back pain, unspeci fied RICKY MCNAMARA S 07/25 [facility] Outpatient Encounter [id number] 08/21 [facility] [place] Outpatient Encounter [id number] 08/21 [place] [facility] Outpatient Encounter [id number] 08/21 [facility] Out[facility] Encounter [id number] 08/22 [facility] Out[facility] Encounter [id number] 08/28 [facility] MTMS BY PHARM ADDL 15 MIN [id number] Diagnos is: ICD-10- CM M54.50 Low back pain, unspeci fied RICKY MCNAMARA S 08/29 [facility] HEARING AID FITTING/CH ECKING [id number] Diagnos is: ICD-10- CM Z46.1 Encount er for fitting and adjustm ent of hearing aid Cinda GRANADOS 09/02 [facility] [place] OFFICE O/P EST LOW 20 MIN [id number] Diagnos is: ICD-10- CM L60.0 Ingrowi ng DAWSON Moore ES F 09/03 [facility] MT[facility] BY PHARM ADDL 15 MIN [id number] Diagnos is: ICD-10- CM E66.9 Obesity , unspeci fiNIKA Suarez 09/05 [place] [facility] Outpatient Encounter [id number] 09/08 [facility] ST[facility] Social History Combined list of available smoking, tobacco, and other social history from Department of Defense and Veterans Affairs facilities. Social History Type Response Date Comment Source Tobacco smoking status NHIS VA-TOBACCO USE FORMER CIGARETTES [facility] History of tobacco use VA-TOBACCO NEVER USED OTHER TYPE 06/30/2024 [facility] History of tobacco use [place]-TOBACCO QUIT 15 YRS OR MORE 11/01/2022 [place] History of tobacco use UT-TOBACCO NEVER USED 11/03/2021 [place] History of tobacco use UT-TOBACCO FORMER USER 10/19/2020 [place] [facility] [place] History of tobacco use QUIT TOBACCO USE > 7 YEARS AGO 08/16/2017 stopped smoking over 25 years ago [place] History of tobacco use QUIT TOBACCO USE > 7 YEARS AGO 08/15/2016 quit 25 years ago [place] History of tobacco use QUIT TOBACCO USE > 7 YEARS AGO 08/13/2015 smoked cig, ~20/day, quit 20 yrs ago [place] History of tobacco use QUIT TOBACCO USE > 7 YEARS AGO 08/10/2014 quit 20+ yrs ago [place] This section is an empty social history section. [facility] Plan of Care List of future care activities from Department of Veterans Affairs facilities. Additional future care activities may be listed in the Assessment and Plan section. Date/Time Care Activity Care Activity Detail Facili ty 09/26/2024 AMBULATORY - MEDICINE AMBULATORY - MEDICI [facility] Advance Directives List of completed, amended, or rescinded Advance Directives on record at Department of Veterans Affairs facilities. An actual copy of the Directive is not included. Date Advance Directive Provider Source 12/02/2020 ADVANCE DIRECTIVE ZAIRE COMER
--- OUTSIDE RECORDS SUMMARY | 2024-09-18 08:18 | XMS_ITS | Clinical Summary ---
Author Organization [facility] Address [address] [place] [address] Care Team Providers Care Director Business Development Name Role Phone Pcp, No Primary Care [...] complete this topic Insurance [employer] MA[employer]ED MEDICARE [facility] [employer] Care Teams Director Business Development Relationship Specialty Start Date End Date Pcp, No PCP - General General Medicine 10/12/23
--- OUTSIDE RECORDS SUMMARY | 2024-09-18 08:18 | XMS_ITS | Clinical Summary ---
Author Organization [facility] Address [address] [place] [address] Care Team Providers Care Manager College Name Role Phone Gudelia Lynne MD Primary Care Provider [phone] Allergies Active Allergy Reactions Criticality Noted Date [...] age to complete this topic Care Teams Manager College Relationship Specialty Start Date End Date Gudelia Lynne MD PCP - General Internal Medicine 09/09/20
--- OUTSIDE RECORDS SUMMARY | 2024-09-18 08:18 | XMS_ITS | Encounter Summary ---
Author Organization [facility] Address [address] [place] [address] Care Team Providers Care Senior Mobile Solutions Architect Name Role Phone Gudelia Lynne MD Primary Care Provider [phone] Encounter Details Date Type Department Care Team (Late Contact Info) Description 08/27/2024 Lab Requisition [facility] - Main Lab [address] [facility] [place] [address] Haven Ruiz MD [address] [facility] [address] [place] [address] Benign prostatic hyperplasia with lower urinary tract [...] Description 10/29/2024 1:10 PM EDT Office Visit [facility] [address] [facility] [address] [place] [address] Edwina Setphens NP [address] [facility] [address] [place] [address] documented as of this encounter Procedures Procedure Name Priority Date/Time Associated Diagnosis Comments PROSTATE SPECIFIC ANTIGEN DIAGNOSTIC Routine 08/27/2024 8:28 AM EDT Benign prostatic hyperplasia with lower urinary tract symptoms documented in this encounter Results * Prostate specific antigen diagnostic (08/27/2024 8:28 AM EDT) PSA 0.72 0.00 - 4.00 ng/mL LAB CHEMISTRY METHOD 08/27/2024 12:00 PM EDT [facility] Blood Venous blood specimen / Unknown 08/27/2024 8:28 AM EDT 08/27/2024 11:24 AM EDT Narrative [facility] - 08/27/2024 12:00 PM EDT The Siemens Advia BluePoint Security™aur Chemiluminescent Immunoassay is used. Results obtained with different assay methods or kits cannot be used interchangeably. Results cannot be interpreted as absolute evidence of the presence or absence of malignant disease. us Haven Ruiz MD LAB BLOOD ORDERABLES Fin al Result [facility] [address] [place] [address], documented in this encounter Visit Diagnoses Diagnosis Benign prostatic hyperplasia with lower urinary tract symptoms documented in this encounter Care Teams Senior Mobile Solutions Architect Relationship Specialty Start Date End Date Gudelia Lynne MD [address] [place] [address] PCP - General Internal Medicine 12/10/19 documented as of this encounter
== END 2024-09-17 08:08 | disposition home or self-care (01) ==
LOC: HO.HOSX 08:07
PROVIDERS: Visit Provider Orthopaedic Surgery
DX: M25.561 Pain in right knee (principal); Z96.651 Presence of right artificial knee joint
CPT/HCPCS: 73562; 99212

== ENCOUNTER 2024-09-17 13:10 | Outpatient (AMB) | payer OTHER, SELFPAY ==
--- NOTE | 2024-09-17 13:18 | A.OFFVIS_ITS ---
Vital Signs 09/17/24 13:23 Height 6 ft Weight 282 lb BMI 38.2 Intake Visit Reasons: Right knee pain Intake Note: Aris is a 69 year old 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 male who presents with complaints of intermittent pain in his right knee after undergoing right total knee replacement surgery approximately 10 years ago. He denies any fevers or chills. He continues to have chronic low back pain as well. He has tried physical therapy exercises which aggravated his pain. He has also tried Tylenol and anti-inflammatory medicines which gave him only mild relief. Allergies No Known Allergies Allergy (Verified 09/17/24 13:23) Medication List - Last Reconciled 09/17/24 by Victorino De La Cruz MD acetaminophen ER 1,300 mg PO Q8H alfuzosin ER 10 mg PO BEDTIME aspirin 81 mg PO DAILY buprenorphine HCl 75 mcg buccal Q12H vqzqumiimtdk-chlgojghbcq-rcrij 1,000-200 mcg 1 tab PO DAILY cyanocobalamin (vitamin B-12) 1,000 mcg sublingual DAILY diclofenac sodium 1% 1 ea topical BID meloxicam submicronized 10 mg PO QAM omeprazole 20 mg PO QAM oxybutynin chloride ER 20 mg PO QAM tadalafil 5 mg PO QAM tolterodine ER 4 mg PO QAM triamcinolone acetonide 0.025% 1 appl topical BID PFSH Medical History (Updated 08/11/24 @ 13:21 by Alex Askew MD) Digital mucous cyst of left hand Hematoma Pre-diabetes Hearing loss Diverticulosis Lumbar stenosis Syncope Osteoarthritis BPH (benign prostatic hyperplasia) Heart abnormality GERD (gastroesophageal reflux disease) Anemia Surgical History History of evacuation of hematoma History of ankle surgery Hx of excision of mass History of decompression of ulnar nerve History of surgery on wrist Hx of total knee replacement Hx of spinal surgery Hx of gastric bypass Hx of shoulder surgery Hx of neck surgery Hx of cataract surgery Hx of colonoscopy History of esophagogastroduodenoscopy (EGD) Family History Mother Intestinal cancer Sister Substance use disorder Social History Household Members: Spouse 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:: , 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 Are you a primary healthcare interpreter to a significant other at home: No Do you presently have visiting nurse or other home services: No Alcohol intake: current Alcohol intake frequency: a few times a week Patient Tobacco Use Status: Former Tobacco user Years Smoked: 10 e-Cigarette/Vaping Use: Never Used service: Yes Current occupational status: employed 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, 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 Cognitive needs: No Hearing needs: No Vision needs: Yes Physical Exam Vital Signs: BMI result Body Mass Index 38.2 Extrem Other: Right knee examination shows that the surgical incision is well healed, no erythema, full active extension and flexion Results Reviewed Results Reviewed: X-rays of the patient's right knee show a total knee arthroplasty in good position with no signs of loosening, no acute bony abnormalities Assessment & Plan Assessment & Plan (1) Right knee pain: Code(s): M25.561 - Pain in right knee Category: Medical Plan Mr. Hernandez presents with intermittent right knee pain most likely due to scar tissue formation after undergoing right total knee replacement surgery. I will arrange for the patient to have a consultation in our pain management Department here at [facility]. The patient may be a candidate for a nerve stimulation procedure. He will contact me prior to that appointment should his symptoms worsen in any way. Feel free to call me at any time should questions regarding his orthopedic management arise. I spent 22 minutes in reviewing the patient's records and imaging studies, seeing the patient and documenting in the medical record. Orders: Referrals Pain Management Referral M25.561 - Pain in right knee Coding Level of Care Code Est Pt Level 3 (09267) Complex EM visit Add On G2211 Diagnoses Right knee pain M25.561
[2024-09-17 13:23] VITALS: BMI 38.2
--- OUTSIDE RECORDS SUMMARY | 2024-09-17 15:35 | XMS_ITS ---
Author Name [facility] [place] [facility] [place] Address [address] [place] [address] Care Team Providers Care Tax Commissioner Name Role Phone KRISTOPHER MAXWELL Primary Care [...] Name Patient's Relationship to Policy Lee EMILY ANDERSENT ION [id number] 1 May 28, 2017 [id number] [phone] [place] MAK PATIENT MEDICARE (WNR) MEDICARE (M) PART A Mar 28, 2021 PART A [id number] [phone] [place] MAK PATIENT MEDICARE (WNR) MEDICARE (M) PART B Mar 28, 2021 PART B [id number] [place] MAK PATIENT MEDICARE (WNR) MEDICARE (M) PART B Mar 28, 2021 PART B [id number] OBDULIO,[place] ILLIAM PATIENT MEDICARE (WNR) MEDICARE (M) PART A Mar 28, 2021 PART A [id number] OBDULIO,W ILLIAM PATIENT OPTUM RX PRESCRIPT ION RX May 28, 2022 THPRX [id number] [phone] OBDULIO,W ILLIAM PATIENT [facility]UM RX PRESCRIPT ION RX May 28, 2022 THPRX [id number] [phone] OBDULIO,W ILLIAM PATIENT OPTUM RX PRESCRIPT ION RX Sep 11, 2018 THPRX [id number] OBDULIO,W ILLIAM PATIENT [facility], 2017 [id number] OBDULIO,W ILLIAM PATIENT [facility] HEALTH PLAN [facility] May 28, 2017 [facility] [id number] OBDULIO,W ILLIAM PATIENT [facility] HEALTH PLAN(WNR) [facility] TON RAFAEL May 28, 2017 [id number] OBDULIO,W ILLIAM PATIENT [facility] (R) [facility](WN R) May 28, 2017 (R) [id number] [id number] OBDULIO,W ILLIAM PATIENT [facility] Sep 11, 2018 [id number] OBDULIO,W ILLIAM PATIENT Selected Encounter This section includes the information on record at [place] for the Encounter. Date/Time Encounter Type Encounter Description Reason Provider Source October 01, 2023 09:00 AM HEARING AID REPAIR/MODIFYIN G AUDIOLOGY ICD-10-CM Z46.1 Encounter for fitting and adjustment of hearing aid CHRIS ROBERTSON Encounter Template Text not used by [place] Assessments - Encounter Diagnoses This section includes the primary and secondary diagnoses documented for the Encounter. Date/Time Primary/Secondary Diagnosis Diagnosis Name Provider Source October 01, 2023 03:17 PM PRIMARY Encounter for fitting and adjustment of hearing aid LEANDRO CASTELLANO [place] [facility] [place] [facility] October 01, 2023 03:17 PM SECONDARY Sensorineural hearing loss, bilateral LEANDRO CASTELLANO [place] [facility] [place] [facility] Plan of Treatment: Future Appointments (+ 6 months) and Future Tests (+/- 45 days) The Plan of Treatment section includes future care activities for the patient [facility] [place] [facility]. This section includes future appointments and future [...] 19, 2023 08:30 AM AMBULATORY - [place]ICINE [place] [facility] [place] [facility] Nov 13, 2023 01:30 PM AMBULATORY - MEDICINE [place] [facility] [place] [facility] Dec 14, 2023 11:30 AM AMBULATORY - MEDICINE [place] [facility] [place] [facility] Dec 28, 2023 10:00 AM AMBULATORY - MEDICINE [place] [facility] [place] [facility] Jan 11, 2024 09:00 AM AMBULATORY [place]ICINE [place] [facility] [place] [facility] Jan 14, 2024 11:00 AM AMBULATORY - REHAB MEDICIN [place] [facility] [place] [facility] Feb 08, 2024 08:30 AM AMBULATORY - MEDICINE [place] [facility] [place] [facility] Feb 26, 2024 08:30 AM AMBULATORY - MEDICINE [place] [facility] [place] [facility] Mar 21, 2024 08:30 AM AMBULATORY - [place]ICINE [place] [facility] [place] [facility] Advance Directives: All historical and current Section Date Range: From patient's date of to the date document was created. This section includes ALL of a patient's completed or amended [place] Advance and Rescinded Directives. The entries below indicate that a directive exists for the patient, but an actual copy is not included with this document. The data comes from all [place] facilities. Date Advance Directives Provider Source Dec 02, 2020 ADVANCE DIRECTIVE ZAIRE COMER [facility] IELD Encounter Notes: All associated encounter notes This section contains the clinical notes associated to the Encounter. Date/Time Encounter Note(s) Provider Source October 01, 2023 08:50 AM AUDIOLOGY NOTE: LOCAL TITLE: AUDIOLOGY [facility] STANDARD TITLE: AUDIOLOGY NOTE DATE OF NOTE: OCTOBER 01, 2023@08:50 ENTRY DATE: OCTOBER 01, 2023@08:50:26 AUTHOR: JOSÉ CASTELLANO COSIGNER: CHRIS ROBERTSON URGENCY: STATUS: COMPLETED October 01, 2023 History/Background: was seen for a hearing aid follow up, unaccompanied. showed up 45 mins late for his scheduled appointment. was scheduled today for hearing aid maintenance and to flower buncher or picker his back up set of earmolds. brought in his hearing aids as well as a backup pair of earmolds. Hearing aids: [employer] EVOLV AI BTE 13s Serial Numbers: [id number] Date Issued: 07/06/2023 Hearing aid check: Both hearing aids were cleaned and checked. Replaced tubes, tonehooks and [place] covers. And replaced tubes and tonehook on back up set of earmolds, cut tubes to length and attached tonehooks to new set of earmolds. Biologic check was good. database marketing analyst ordered today per Veterans request. Plan: [place] requested routine maintenance be scheduled for 3 months. 60 min HT appointment was scheduled for 01/14/2024 @ 1100. RTC entered. Note: All future appointments should be 60 mins as Parmelee has 6 earmolds he would like tubed. /jac/ JOSÉ CASTELLANO Audiology Health Art Tracer Signed: 10/01/2023 15:26 /ALISA Cotto, [facility]-A STAFF OPTIMIZATION SPECIALIST Cosigned: 10/01/2023 17:02 [facility]
--- OUTSIDE RECORDS SUMMARY | 2024-09-17 15:35 | XMS_ITS | Continuity of Care Document ---
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 [place] Impingement syndrome of right shoulder region Active [...] [facility] [place] [facility] Tinnitus Active Condition [place] Ulnar neuritis Active Condition [facility] [place] Diagnosis: ICD-10-CM E66.9 Obesity, unspecified Active Diagnosis [place] Diagnosis: ICD-10-CM L60.0 Ingrowing nail Active Diagnosis [facility] Diagnosis: ICD-10-CM Z46.1 Encounter for fitting and adjustment of hearing aid Active Diagnosis [facility] Diagnosis: ICD-10-CM M54.50 Low back pain, unspecified Active Diagnosis [facility] Diagnosis: ICD-10-CM G89.4 Chronic pain syndrome Active Diagnosis [facility] Diagnosis: ICD-10-CM G89.29 Other chronic pain Active Diagnosis [facility] Diagnosis: ICD-10-CM Z23 Encounter for immunization Active Diagnosis [facility] Diagnosis: ICD-10-CM L84 Corns and callosities Active Diagnosis [place] Diagnosis: ICD-10-CM E78.5 Hyperlipidemia, unspecified Active Diagnosis [place] Diagnosis: ICD-10-CM Z02.89 Encounter for other administrative examinations Active Diagnosis [facility] Diagnosis: ICD-10-CM H90.3 Sensorineural hearing loss, bilateral Active Diagnosis [facility] [place] [facility] Medications Combined list of outpatient medications from [...] THREE TIMES A DAY NEEDED ORAL ACTIVE JAIOR-GR STE[place]ANCHITO [place] 2021 [facility] IELD ALFUZOSIN HCL 10MG TAB,SA TAKE ONE TABLET BY MOUTH DAILY ORAL ACTIVE JAIRO-GR STEPHANIA,CYNTH [place] 2014 [place] ASPIRIN 81MG TAB,EC TAKE ONE TABLET BY MOUTH ONCE DAILY TO PREVENT STROKE/H EART ATTACK ORAL ACTIVE 08/01/2025 [id number] Erum MAXWELL 2024 120 [place] ASPIRIN 81MG TAB,EC TAKE ONE TABLET BY MOUTH ONCE DAILY TO PREVENT STROKE/H EART ATTACK ORAL DISCONT INUED 08/17/2024 [id number] 4 MARYAM SMALL 2023 120 [place] ASPIRIN EC (U/D) 81 MG ORAL TBEC TAKE ONE TABLET BY MOUTH ONCE DAILY TO PREVENT STROKE/H EART ATTACK 08/17/2024 [id number] 4 LOKESH SMALL 2023 120 [facility] [place] 10[place]/HR PATCH APPLY 1 PATCH TO SKIN EVERY 7 DAYS FOR PAIN (REMOVE PATCH BEFORE APPLYING A NEW PATCH) TRANSD ERMAL DISCONT INUED BY PROVIDE R 02/10/2024 [id number] 4 MARILYN MCNAMARA THANY S 2023 4 [facility] [place] 150MCG FILM,BUCCAL PLACE ONE FILM BETWEEN CHEEK AND GUM UNTIL DISSOLVE D EVERY 12 HOURS FOR PAIN BUCCAL DISCONT INUED (EDIT) 11/23/2024 [id number] 4 ANDERS,BE THANY S 2023 60 [place] [facility] [place] [facility] [facility] [place] 150MCG FILM,BUCCAL PLACE ONE FILM BETWEEN CHEEK AND GUM UNTIL DISSOLVE D EVERY 12 HOURS FOR PAIN BUCCAL DISCONT INUED 09/21/2024 [id number] 4 ANDERS,BE THANY S 2023 60 [facility] [place] [place] 150MCG FILM,BUCCAL PLACE ONE FILM BETWEEN CHEEK AND GUM UNTIL DISSOLVE D EVERY 12 HOURS FOR PAIN BUCCAL DISCONT INUED 03/27/2024 [id number] 4 ANDERS,BE THANY S 2023 60 [facility] [place] [place] 300MCG FILM,BUCCAL PLACE ONE FILM BETWEEN CHEEK AND GUM UNTIL DISSOLVE D EVERY 12 HOURS FOR PAIN BUCCAL ACTIVE 01/25/2025 [id number] 5 ANDERS,BE THANY S 2024 60 [facility] [place] [place] 300MCG FILM,BUCCAL PLACE ONE FILM BETWEEN CHEEK AND GUM UNTIL DISSOLVE D EVERY 12 HOURS FOR PAIN BUCCAL DISCONT INUED 12/06/2024 [id number] 5 SURAJ CURTIS LLIAM S 2024 60 [facility] [place] [place] 5MCG/HR PATCH APPLY 1 PATCH TO SKIN EVERY 7 DAYS FOR PAIN (REMOVE PATCH BEFORE APPLYING A NEW PATCH) TRANSD ERMAL DISCONT INUED (EDIT) 01/13/2024 [id number] 4 ANDERS,BE THANY S 2023 4 [facility] [place] 7.5MCG/HR PATCH APPLY 1 PATCH TO SKIN EVERY 7 DAYS FOR PAIN (REMOVE PATCH BEFORE APPLYING A NEW PATCH) TRANSD ERMAL DISCONT INUED (EDIT) 01/27/2024 [id number] 4 ANDERS,BE THANY S 2023 2 [facility] [place] 75MCG FILM,BUCCAL PLACE ONE FILM BETWEEN CHEEK AND GUM UNTIL DISSOLVE D EVERY 12 HOURS FOR PAIN BUCCAL DISCONT INUED (EDIT) 03/09/2024 [id number] 4 ANDERS,BE THANY S 2023 60 [facility] [place] [facility] DICLOFENAC EPOLAMINE (EQV-FLECTO R) 1.3% PATCH APPLY 1 PATCH TO SKIN TWICE DAILY NEEDED FOR PAIN TRANSD ERMAL ACTIVE 10/19/2024 [id number] 4 ANDERS,MARILYN KING S 2023 60 [facility] [place] [facility] Diclofenac Epolamine (Flector Eq.) Transdermal System 1.3%/Patch Transdermal APPLY 1 PATCH TO SKIN TWICE DAILY NEEDED FOR PAIN Active 10/19/2024 [id number] 4 HEMAL MCNAMARA S 2023 60 [facility] Lidocaine (Madyson-Max Eq.) Cream 4% Topical APPLY A SMALL AMOUNT TOPICALL Y TWICE DAILY FOR PAIN 10/28/2023 [id number] 4 HEMAL MCNAMARA S 2023 90 [facility] LIDOCAINE 4% CREAM,TOP APPLY A SMALL AMOUNT TOPICALL Y TWICE DAILY FOR PAIN TOPICA L 10/28/2023 [id number] 4 ANDERS,BE FERNANDO S 2023 90 [facility] [place] NALOXONE HCL 4MG/SPRAY SOLN,SPRAY, NASAL INSTILL 1 SPRAY ONE NOSTRIL ONE TIME NEEDED FOR OPIOID OVERDOSE CALL 911 WITH ADMINIST RATION. REPEAT WITH SECOND DEVICE IF SYMPTOMS RETURN NASAL DISCONT INUED 03/27/2024 [id number] 4 ANDERS,BE FERNANDO S 2023 2 [facility] [place] NALOXONE HCL 4MG/SPRAY SOLN,SPRAY, NASAL INSTILL 1 SPRAY ONE NOSTRIL ONE TIME NEEDED FOR OPIOID OVERDOSE CALL 911 WITH ADMINIST RATION. REPEAT WITH SECOND DEVICE IF SYMPTOMS RETURN NASAL 07/05/2024 [id number] 5 SURAJ CURTISKaren S 2024 2 [facility] [place] NALOXONE HCL 4MG/SPRAY SOLN,SPRAY, NASAL INSTILL 1 SPRAY ONE NOSTRIL ONE TIME NEEDED FOR OPIOID OVERDOSE CALL 911 WITH ADMINIST RATION. REPEAT WITH SECOND DEVICE IF SYMPTOMS RETURN NASAL 01/13/2024 [id number] 4 ANDERS,BE THANY S 2023 2 [facility] [place] [facility] [facility] Pregabalin (Lyrica) Capsule Conventiona l 100 mg Oral TAKE ONE CAPSULE BY MOUTH THREE TIMES A DAY FOR PAIN ; THIS REPLACES GABAPENT IN Discont inued 10/07/2023 [id number] 4 LACEY MCNAMARAY S 2023 42 [facility] Pregabalin (Lyrica) Capsule Conventiona l 100 mg Oral TAKE ONE CAPSULE BY MOUTH TWICE DAILY ; THIS REPLACES GABAPENT IN Discont inued 09/23/2023 [id number] 4 LACEY MCNAMARAY S 2023 28 [facility] PREGABALIN (U/D) 75 MG ORAL CAP TAKE ONE CAPSULE BY MOUTH THREE TIMES A DAY ; THIS REPLACES GABAPENT IN Discont inued 09/30/2023 [id number] 4 LACEY MCNAMAARY S 2023 42 [facility] PREGABALIN 100MG CAP,ORAL TAKE ONE CAPSULE BY MOUTH THREE TIMES A DAY FOR PAIN ; THIS REPLACES GABAPENT IN ORAL DISCONT INUED (EDIT) 10/07/2023 [id number] 4 ANDERS,BE THANY S 2023 42 [facility] PREGABALIN 100MG CAP,ORAL TAKE ONE CAPSULE BY MOUTH TWICE DAILY ; THIS REPLACES GABAPENT IN ORAL DISCONT INUED (EDIT) 09/23/2023 [id number] 4 ANDERS,BE THANY S 2023 28 [facility] [place] [facility] PREGABALIN 200 MG ORAL CAP TAKE ONE CAPSULE BY MOUTH TWICE DAILY ; THIS REPLACES GABAPENT IN Discont inued 10/14/2023 [id number] 4 RICKY MCNAMARAHANY S 2023 28 [facility] PREGABALIN 200 MG ORAL CAP TAKE ONE CAPSULE BY MOUTH TWICE DAILY ; THIS REPLACES GABAPENT IN 10/14/2023 [id number] 4 HEMAL MCNAMARA S 2023 28 [facility] PREGABALIN 200MG CAP,ORAL TAKE ONE CAPSULE BY MOUTH TWICE DAILY ; THIS REPLACES GABAPENT IN ORAL DISCONT INUED (EDIT) 10/14/2023 [id number] 4 MARILYN MCNAMARAY S 2023 28 [facility] [place] [facility] [facility] PREGABALIN 225 MG ORAL CAP TAKE ONE CAPSULE BY MOUTH TWICE DAILY FOR PAIN 11/18/2023 [id number] 4 HEMAL MCNAMARA S 2023 60 [facility] PREGABALIN 225 MG ORAL CAP TAKE ONE CAPSULE BY MOUTH TWICE DAILY ; THIS REPLACES GABAPENT IN 11/18/2023 [id number] 4 HEMAL MCNAMARA S 2023 60 [facility] PREGABALIN 225 MG ORAL CAP TAKE ONE CAPSULE BY MOUTH TWICE DAILY ; THIS REPLACES GABAPENT IN Discont inued 10/28/2023 [id number] 4 HEMAL MCNAMARA S 2023 60 [facility] PREGABALIN 225MG CAP,ORAL TAKE ONE CAPSULE BY MOUTH TWICE DAILY FOR PAIN ORAL DISCONT INUED (EDIT) 12/28/2024 [id number] 5 MARILYN MCNAMARAY S 2024 60 [facility] [place] [facility] PREGABALIN 225MG CAP,ORAL TAKE ONE CAPSULE BY MOUTH TWICE DAILY FOR PAIN ORAL DISCONT INUED 11/23/2024 [id number] 5 MARILYN MCNAMARA THANY S 2023 60 [facility] [place] [facility] PREGABALIN 225MG CAP,ORAL TAKE ONE CAPSULE BY MOUTH TWICE DAILY FOR PAIN ORAL DISCONT INUED 08/10/2024 [id number] 4 MARILYN MCNAMARA THANY S 2023 60 [place] [facility] [place] [facility] [facility] PREGABALIN 225MG CAP,ORAL TAKE ONE CAPSULE BY MOUTH TWICE DAILY FOR PAIN ORAL DISCONT INUED 06/15/2024 [id number] 4 MARILYN MCNAMRAA THANY S 2023 60 [facility] [place] [facility] [facility] PREGABALIN 225MG CAP,ORAL TAKE ONE CAPSULE BY MOUTH TWICE DAILY FOR PAIN ORAL DISCONT INUED 01/03/2024 [id number] 4 ANDERS,MARILYN THANY S 2023 60 [facility] [place] [facility] [facility] PREGABALIN 225MG CAP,ORAL TAKE ONE CAPSULE BY MOUTH TWICE DAILY ; THIS REPLACES GABAPENT IN ORAL DISCONT INUED 10/28/2023 [id number] 4 ANDERS,BE THANY S 2023 60 [facility] [place] [facility] [facility] PREGABALIN 225MG CAP,ORAL TAKE ONE CAPSULE BY MOUTH TWICE DAILY FOR PAIN ORAL 11/18/2023 [id number] 4 ANDERS,BE THANY S 2023 60 [facility] [place] [facility] [facility] PREGABALIN 300MG CAP,ORAL TAKE ONE CAPSULE BY MOUTH TWICE DAILY FOR PAIN ORAL ACTIVE 03/01/2025 [id number] 5 ANDERS,BE THANY S 2024 60 [facility] [place] [facility] PREGABALIN 75MG CAP,ORAL TAKE ONE CAPSULE BY MOUTH THREE TIMES A DAY ; THIS REPLACES GABAPENT IN ORAL DISCONT INUED (EDIT) 09/30/2023 [id number] 4 ANDERS,BE FERNANDO S 2023 42 [facility] [place] [facility] [facility] TADALAFIL 5MG TAB TAKE ONE TABLET BY MOUTH DAILY ORAL ACTIVE PANCHITO ZAMARRIPA 2014 [facility] IELD Allergies, Adverse Reactions, Alerts Combined list of allergies from Department of Defense and Veterans Affairs facilities. It does not include entries that were removed or entered in error. Substance Category Reaction Severity Reaction type Status Date Reported Comments Source Diphenhydrami ne Drug [facility] (disorder) [facility] DIPHENHYDRAMI NE Propensity to adverse reactions to drug (finding) active 5 [facility] Immunizations Combined list of available immunizations from the Department of Defense and Veterans Affairs facilities. Immunization Series Date Given Administered By Site Reaction Lot Number CVX Code Drug [employer] Counselor Status Comments Source INFLUENZA, HIGH-DOSE, TRIVALENT, PF 2023 JOSE RUIZJ TRINA M LEFT [place] ID [id number] 135 complet ed [facility] [place] [facility] [facility] INFLUENZA, HIGH-DOSE, QUADRIVALENT 2022 ALEC POON M LEFT [place] ID [id number] 197 complet ed Completed Series, [facility] [place] [facility] PNEUMOCOCCAL CONJUGATE PCV20, POLYSACCHARID E [id number] CONJUGATE, ADJUVANT, PF 2022 SALVATORE GILMORE LEFT [place] ID [id number] 216 complet ed ADMINISTE [place], [facility] IELD INFLUENZA VACCINE, QUADRIVALENT, ADJUVANTED 2021 205 complet ed [place] [facility] [place] [facility] [facility] INFLUENZA, UNSPECIFIED FORMULATION 2020 88 complet ed [facility] COVID-19 (PFIZER), MRNA, LNP-S, PF, 30 MCG/0.3 ML DOSE 2 2020 208 complet ed [facility] [place] COVID-19 (PFIZER), MRNA, LNP-S, PF, 30 MCG/0.3 ML DOSE 1 2020 208 complet ed [facility] INFLUENZA, UNSPECIFIED FORMULATION 2019 88 complet ed [facility] [place] [facility] [facility] ZOSTER RECOMBINANT 2 2019 187 complet ed Verified with pharmacis t. Unable to send documenta tion [facility] [place] [facility] [facility] ZOSTER RECOMBINANT 1 2019 187 complet ed Verified with pharmacis t. Unable to send documenta tion [facility] [place] [facility] INFLUENZA, INJECTABLE, MDCK, PRESERVATIVE FREE, QUADRIVALENT 2018 171 complet ed 02, Partner: [facility]. Administe red by: [facility] Clinician (NPI=Not Provided) . Partner 2 Lot#: [id number] Mfr: [facility] [place] [...] FLU,3 YRS (HISTORICAL) 2014 88 complet ed [facility] [place] [facility] [facility] FLU,3 YRS (HISTORICAL) 2014 88 complet ed [facility] [place] [facility] [facility] [...] Reference Range Date Interpretation Specimen Comments Source TSH THYROTROPIN [UNITS/VOLU ME] IN SERUM OR PLASMA BY DETECTION LIMIT <= 0.005 MIU/L 0.55 u[IU]/ mL 0.35 - 5.00 08/21 Specimen Type: SERUM No comment entered. Ordering Provider: HIEN MAXWELL A Report Released Date/Time: Aug 19, 2024 09:44 AM Reporting Lab: [facility] [address] [facility] [address] Performing Lab: [facility] [address] [facility] [address] [facility] BASIC METABOLIC PANEL (non-fast ing) UREA NITROGEN [MASS/VOLUM E] IN SERUM OR PLASMA 8 mg/dL 7 - 25 08/21 Specimen Type: SERUM No comment entered. Ordering Provider: HIEN MAXWELL A Report Released Date/Time: Aug 19, 2024 09:44 AM Reporting Lab: [facility] [address] [facility] [address] Performing Lab: [address] [address] [place] BASIC METABOLIC PANEL (non-fast ing) GLUCOSE [MASS/VOLUM E] IN SERUM OR PLASMA 80 mg/dL 65 - 100 08/21 Specimen Type: SERUM No comment entered. Ordering Provider: HIEN MAXWELL A Report Released Date/Time: Aug 19, 2024 09:44 AM Reporting Lab: [facility] [address] [facility] [address] Performing Lab: [address] [address] [place] BASIC METABOLIC PANEL (non-fast ing) SODIUM [MOLES/VOLU ME] IN SERUM OR PLASMA 136 mmol/L 135 - 145 08/21 Specimen Type: SERUM No comment entered. Ordering Provider: HIEN MAXWELL A Report Released Date/Time: Aug 19, 2024 09:44 AM Reporting Lab: [address] [address] Performing Lab: [address] [address] [place] BASIC METABOLIC PANEL (non-fast ing) POTASSIUM [MOLES/VOLU ME] IN SERUM OR PLASMA 3.8 mmol/L 3.5 - 5.0 08/21 Specimen Type: SERUM No comment entered. Ordering Provider: HIEN MAXWELL A Report Released Date/Time: Aug 19, 2024 09:44 AM Reporting Lab: [address] [address] Performing Lab: [address] [address] [place] BASIC METABOLIC PANEL (non-fast ing) CHLORIDE [MOLES/VOLU ME] IN SERUM OR PLASMA 107 mmol/L 100 - 110 08/21 Specimen Type: SERUM No comment entered. Ordering Provider: HIEN MAXWELL A Report Released Date/Time: Aug 19, 2024 09:44 AM Reporting Lab: [facility] [address] [address] Performing Lab: [facility] [address] [address] [place] BASIC METABOLIC PANEL (non-fast ing) CARBON DIOXIDE, TOTAL [MOLES/VOLU ME] IN SERUM OR PLASMA 21 meq/L 20 - 30 08/21 Specimen Type: SERUM No comment entered. Ordering Provider: HIEN MAXWELL A Report Released Date/Time: Aug 19, 2024 09:44 AM Reporting Lab: [address] [address] Performing Lab: [facility] [address] [address] [place] BASIC METABOLIC PANEL (non-fast ing) CALCIUM [MASS/VOLUM E] IN SERUM OR PLASMA 8.3 mg/dL 8.5 - 10.2 08/21 L Specimen Type: SERUM No comment entered. Ordering Provider: HIEN MAXWELL A Report Released Date/Time: Aug 19, 2024 09:44 AM Reporting Lab: [facility] [address] [address] Performing Lab: [facility] [address] [address] [place] BASIC METABOLIC PANEL (non-fast ing) CREATININE [MASS/VOLUM E] IN SERUM OR PLASMA 0.77 mg/dL 0.50 - 1.40 08/21 Specimen Type: SERUM No comment entered. Ordering Provider: HIEN MAXWELL A Report Released Date/Time: Aug 19, 2024 09:44 AM Reporting Lab: [facility] [address] [address] Performing Lab: [facility] [address] [address] [place] BASIC METABOLIC PANEL (non-fast ing) GLOMERULAR FILTRATION RATE/1.73 SQ M.PREDICTED [VOLUME RATE/AREA] IN SERUM, PLASMA OR BLOOD BY CREATININE- BASED FORMULA (CKD-EPI 2020) >90mL/ min 60 08/21 Specimen Type: SERUM No comment entered. Ordering Provider: HIEN MAXWELL A Report Released Date/Time: Aug 19, 2024 09:44 AM Reporting Lab: [facility] [address] [address] Performing Lab: [facility] [address] [address] [place] LIPID PANEL, NON FASTING CHOLESTEROL [MASS/VOLUM E] IN SERUM OR PLASMA 173 mg/dL 08/21 Specimen Type: SERUM No comment entered. Ordering Provider: HIEN MAXWELL A Report Released Date/Time: Aug 19, 2024 09:44 AM Reporting Lab: [facility] [address] [address] Performing Lab: [address] [address] [place] LIPID PANEL, NON FASTING TRIGLYCERID E [MASS/VOLUM E] IN SERUM OR PLASMA 100 mg/dL 0 - 150 08/21 Specimen Type: SERUM No comment entered. Ordering Provider: HIEN MAXWELL A Report Released Date/Time: Aug 19, 2024 09:44 AM Reporting Lab: [facility] [address] [address] Performing Lab: [facility] [address] [address] [place] LIPID PANEL, NON FASTING CHOLESTEROL IN LDL [MASS/VOLUM E] IN SERUM OR PLASMA BY CALCULATION 90 mg/dL 0 - 129 08/21 Specimen Type: SERUM No comment entered. Ordering Provider: HIEN MAXWELL A Report Released Date/Time: Aug 19, 2024 09:44 AM Reporting Lab: [facility] [address] [address] Performing Lab: [facility] [address] [address] [place] LIPID PANEL, NON FASTING CHOLESTEROL .TOTAL/CHOL ESTEROL IN HDL [MASS RATIO] IN SERUM OR PLASMA 2.7 08/21 Specimen Type: SERUM No comment entered. Ordering Provider: HIEN MAXWELL A Report Released Date/Time: Aug 19, 2024 09:44 AM Reporting Lab: [facility] [address] [facility] [address] Performing Lab: [address] [address] [place] LIPID PANEL, NON FASTING CHOLESTEROL IN HDL [MASS/VOLUM E] IN SERUM OR PLASMA 63 mg/dL 40 - 60 08/21 H Specimen Type: SERUM No comment entered. Ordering Provider: HIEN MAXWELL A Report Released Date/Time: Aug 19, 2024 09:44 AM Reporting Lab: [address] [address] Performing Lab: [address] [address] [place] LIVER FUNCTION PROTEIN [MASS/VOLUM E] IN SERUM OR PLASMA 7.0 g/dL 6.0 - 8.3 08/21 Specimen Type: SERUM No comment entered. Ordering Provider: HIEN MAXWELL A Report Released Date/Time: Aug 19, 2024 09:44 AM Reporting Lab: [address] [address] Performing Lab: [address] [address] [place] LIVER FUNCTION ALBUMIN [MASS/VOLUM E] IN SERUM OR PLASMA BY BROMOCRESOL PURPLE (BCP) DYE BINDING METHOD 3.7 g/dL 3.5 - 5.0 08/21 Specimen Type: SERUM No comment entered. Ordering Provider: HIEN MAXWELL A Report Released Date/Time: Aug 19, 2024 09:44 AM Reporting Lab: [address] [address] Performing Lab: [address] [address] [place] FUNCTION ALKALINE PHOSPHATASE [ENZYMATIC ACTIVITY/VO LUME] IN SERUM OR PLASMA 73 U/L 40 - 150 08/21 Specimen Type: SERUM No comment entered. Ordering Provider: HIEN MAXWELL A Report Released Date/Time: Aug 19, 2024 09:44 AM Reporting Lab: [facility] [place] [address] [address] Performing Lab: [facility] [address] [address] [place] LIVER FUNCTION ASPARTATE AMINOTRANSF ERASE [ENZYMATIC ACTIVITY/VO LUME] IN SERUM OR PLASMA BY WITH P-5'-P 17 U/L 5 - 34 08/21 Specimen Type: SERUM No comment entered. Ordering Provider: HIEN MAXWELL A Report Released Date/Time: Aug 19, 2024 09:44 AM Reporting Lab: [facility] [address] [address] Performing Lab: [facility] [address] [address] [place] LIVER FUNCTION ALANINE AMINOTRANSF ERASE [ENZYMATIC ACTIVITY/VO LUME] IN SERUM OR PLASMA BY WITH P-5'-P 16 U/L 08/21 Specimen Type: SERUM No comment entered. Ordering Provider: HIEN MAXWELL A Report Released Date/Time: Aug 19, 2024 09:44 AM Reporting Lab: [facility] [address] [address] Performing Lab: [facility] [address] [place] LIVER FUNCTION BILIRUBIN.T OTAL [MASS/VOLUM E] IN SERUM OR PLASMA 0.5 mg/dL 0.2 - 1.2 08/21 Specimen Type: SERUM No comment entered. Ordering Provider: HIEN MAXWELL A Report Released Date/Time: Aug 19, 2024 09:44 AM Reporting Lab: [place] [facility] [address] [address] Performing Lab: [facility] [address] [address] [place] HEMOGLOBI N A1C PANEL HEMOGLOBIN A1C/HEMOGLO BIN.TOTAL IN BLOOD BY IF PROTOCOL 5.6 4.0 - 5.6 08/21 Specimen Type: BLOOD Comment: Values obtained from A1C measurement s can vary. For atypical A1C assays, a reported value of 7.0 could actually be between 6.72 and 7.28 if measured by a reference method. A reported value of 9.0 could actually be between 8.73 and 9.27. Ref: http://www. ngsp.org/[place] Pdata.asp Ordering Provider: HIEN MAXWELL A Report Released Date/Time: Aug 19, 2024 09:44 AM Reporting Lab: [address] [address] Performing Lab: [address] [address] [place] CBC AND DIFF (AUTO) LEUKOCYTES [#/VOLUME] IN BLOOD BY AUTOMATED COUNT 7.57 10*3/u L 4.50 - 11.00 08/21 Specimen Type: BLOOD No comment entered. Ordering Provider: HIEN MAXWELL A Report Released Date/Time: Aug 19, 2024 09:44 AM Reporting Lab: [address] [address] Performing Lab: [address] [address] [place] CBC AND DIFF (AUTO) ERYTHROCYTE S [#/VOLUME] IN BLOOD BY AUTOMATED COUNT 4.38 10*6/u L 4.23 - 5.66 08/21 Specimen Type: BLOOD No comment entered. Ordering Provider: HIEN MAXWELL A Report Released Date/Time: Aug 19, 2024 09:44 AM Reporting Lab: [address] [address] Performing Lab: [address] [address] [place] CBC AND DIFF (AUTO) HEMOGLOBIN [MASS/VOLUM E] IN BLOOD 13.4 g/dL 12.8 - 17 08/21 Specimen Type: BLOOD No comment entered. Ordering Provider: HIEN MAXWELL A Report Released Date/Time: Aug 19, 2024 09:44 AM Reporting Lab: [facility] [address] [address] Performing Lab: [facility] [address] [address] [place] CBC AND DIFF (AUTO) HEMATOCRIT [VOLUME FRACTION] OF BLOOD BY AUTOMATED COUNT 38.7 39.2 - 50.4 08/21 L Specimen Type: BLOOD No comment entered. Ordering Provider: HIEN MAXWELL A Report Released Date/Time: Aug 19, 2024 09:44 AM Reporting Lab: [facility]TRN [address] [address] Performing Lab: [facility] [address] [address] [place] CBC AND DIFF (AUTO) MCV [ENTITIC VOLUME] BY AUTOMATED COUNT 88.4 fL 82 - 99 08/21 Specimen Type: BLOOD No comment entered. Ordering Provider: HIEN MAXWELL A Report Released Date/Time: Aug 19, 2024 09:44 AM Reporting Lab: [facility]TR[facility] [address] [address] Performing Lab: [facility]TR[facility] [address] [address] [place] CBC AND DIFF (AUTO) MCHC [MASS/VOLUM E] BY AUTOMATED COUNT 34.6 g/dL 30.8 - 35.1 08/21 Specimen Type: BLOOD No comment entered. Ordering Provider: HIEN MAXWELL A Report Released Date/Time: Aug 19, 2024 09:44 AM Reporting Lab: [facility]TR[facility] [address] [address] Performing Lab: [facility]ITALTRN [facility]USE[address] [address] [place] CBC AND DIFF (AUTO) PLATELETS [#/VOLUME] IN BLOOD BY AUTOMATED COUNT 176 10*3/u L 140 - 360 08/21 Specimen Type: BLOOD No comment entered. Ordering Provider: HIEN MAXWELL A Report Released Date/Time: Aug 19, 2024 09:44 AM Reporting Lab: [facility] [address] [address] Performing Lab: [facility] W[facility]N [address] [address] [place] CBC AND DIFF (AUTO) PLATELET MEAN VOLUME [ENTITIC VOLUME] IN BLOOD BY AUTOMATED COUNT 10.4 fL 9.2 - 12.4 08/21 Specimen Type: BLOOD No comment entered. Ordering Provider: HIEN MAXWELL A Report Released Date/Time: Aug 19, 2024 09:44 AM Reporting Lab: [facility] [address] [address] Performing Lab: [facility] [address] [address] [place] CBC AND DIFF (AUTO) ERYTHROCYTE DISTRIBUTIO N WIDTH [RATIO] BY AUTOMATED COUNT 12.5 12.0 - 16.0 08/21 Specimen Type: BLOOD No comment entered. Ordering Provider: HIEN MAXWELL A Report Released Date/Time: Aug 19, 2024 09:44 AM Reporting Lab: [facility]ITALTRN [address] [address] Performing Lab: [facility]TRN [facility] [address] [address] [place] CBC AND DIFF (AUTO) MONOCYTES [#/VOLUME] IN BLOOD BY AUTOMATED COUNT 0.63 10*3/u L 0.30 - 1.10 08/21 Specimen Type: BLOOD No comment entered. Ordering Provider: HIEN MAXWELL A Report Released Date/Time: Aug 19, 2024 09:44 AM Reporting Lab: [facility]ITALTRN [place] [address] [address] Performing Lab: [facility]USE[address] [address] [place] CBC AND DIFF (AUTO) MCH [ENTITIC MASS] BY AUTOMATED COUNT 30.6 pg 26.2 - 32.6 08/21 Specimen Type: BLOOD No comment entered. Ordering Provider: HIEN MAXWELL A Report Released Date/Time: Aug 19, 2024 09:44 AM Reporting Lab: [place] [facility] [place] [address] [address] Performing Lab: [place] [facility] [place] [address] [address] [place] CBC AND DIFF (AUTO) NEUTROPHILS /100 LEUKOCYTES IN BLOOD BY AUTOMATED COUNT 72.7 43.7 - 75.8 08/21 Specimen Type: BLOOD No comment entered. Ordering Provider: HIEN MAXWELL A Report Released Date/Time: Aug 19, 2024 09:44 AM Reporting Lab: [place] [facility] [place] [address] [address] Performing Lab: [place] [facility] [address] [address] [place] CBC AND DIFF (AUTO) LYMPHOCYTES /100 LEUKOCYTES IN BLOOD BY AUTOMATED COUNT 16.1 14.0 - 42.3 08/21 Specimen Type: BLOOD No comment entered. Ordering Provider: HIEN MAXWELL A Report Released Date/Time: Aug 19, 2024 09:44 AM Reporting Lab: [place] [facility] [place] [address] [address] Performing Lab: [place] [facility] [place] [address] [address] [place] CBC AND DIFF (AUTO) MONOCYTES/1 00 LEUKOCYTES IN BLOOD BY AUTOMATED COUNT 8.3 5.1 - 13.7 08/21 Specimen Type: BLOOD No comment entered. Ordering Provider: HIEN MAXWELL A Report Released Date/Time: Aug 19, 2024 09:44 AM Reporting Lab: [place] [facility] [address] [address] Performing Lab: [place] [facility] [address] [address] [place] CBC AND DIFF (AUTO) EOSINOPHILS /100 LEUKOCYTES IN BLOOD BY AUTOMATED COUNT 2.1 0.4 - 6.8 08/21 Specimen Type: BLOOD No comment entered. Ordering Provider: HIEN MAXWELL A Report Released Date/Time: Aug 19, 2024 09:44 AM Reporting Lab: [place] [facility] [address] [address] Performing Lab: [place] [facility] [address] [place] CBC AND DIFF (AUTO) BASOPHILS/1 00 LEUKOCYTES IN BLOOD BY AUTOMATED COUNT 0.4 0.1 - 2.0 08/21 Specimen Type: BLOOD No comment entered. Ordering Provider: HIEN MAXWELL Report Released Date/Time: Aug 19, 2024 09:44 AM Reporting Lab: [facility] TRN [facility] [address] [address] Performing Lab: [facility] TRN [facility]USE[address] [address] [place] CBC AND DIFF (AUTO) NEUTROPHILS [#/VOLUME] IN BLOOD BY AUTOMATED COUNT 5.50 10*3/u L 2.20 - 7.60 08/21 Specimen Type: BLOOD No comment entered. Ordering Provider: HIEN MAXWELL Report Released Date/Time: Aug 19, 2024 09:44 AM Reporting Lab: [facility] TRN [facility] [address] [address] Performing Lab: [facility] TRN [facility] [address] [address] [place] CBC AND DIFF (AUTO) LYMPHOCYTES [#/VOLUME] IN BLOOD BY AUTOMATED COUNT 1.22 10*3/u L 1.00 - 3.20 08/21 Specimen Type: BLOOD No comment entered. Ordering Provider: HIEN MAXWELL A Report Released Date/Time: Aug 19, 2024 09:44 AM Reporting Lab: [facility] TRN [facility] [address] [address] Performing Lab: [facility]ITALRLA[facility]PITALTRN [facility]USE[address] [address] [place] CBC AND DIFF (AUTO) EOSINOPHILS [#/VOLUME] IN BLOOD BY AUTOMATED COUNT 0.16 10*3/u L 0.03 - 0.44 08/21 Specimen Type: BLOOD No comment entered. Ordering Provider: HIEN MAXWELL A Report Released Date/Time: Aug 19, 2024 09:44 AM Reporting Lab: [place] [facility] [address] [address] Performing Lab: [place] [facility] [address] [address] [place] CBC AND DIFF (AUTO) BASOPHILS [#/VOLUME] IN BLOOD BY AUTOMATED COUNT 0.03 10*3/u L 0.01 - 0.13 08/21 Specimen Type: BLOOD No comment entered. Ordering Provider: HIEN MAXWELL A Report Released Date/Time: Aug 19, 2024 09:44 AM Reporting Lab: [facility] [address] [address] Performing Lab: [facility] WSTRN [address] [address] [place] CBC AND DIFF (AUTO) IMMATURE GRANULOCYTE S/100 LEUKOCYTES IN BLOOD BY AUTOMATED COUNT 0.4 0.0 - 0.7 08/21 Specimen Type: BLOOD No comment entered. Ordering Provider: HIEN MAXWELL A Report Released Date/Time: Aug 19, 2024 09:44 AM Reporting Lab: [facility] TRN [facility] [address] [address] Performing Lab: [place] [facility] [address] [address] [place] CBC AND DIFF (AUTO) IMMATURE GRANULOCYTE S [#/VOLUME] IN BLOOD BY AUTOMATED COUNT 0.03 10*3/u L 0.00 - 0.06 08/21 Specimen Type: BLOOD No comment entered. Ordering Provider: HIEN MAXWELL A Report Released Date/Time: Aug 19, 2024 09:44 AM Reporting Lab: [facility] [address] [address] Performing Lab: [place] [facility] [address] [place] CBC AND DIFF (AUTO) NUCLEATED ERYTHROCYTE S/100 LEUKOCYTES [RATIO] IN BLOOD BY AUTOMATED COUNT 0.0 0.0 - 0.0 08/21 Specimen Type: BLOOD No comment entered. Ordering Provider: HIEN MAXWELL A Report Released Date/Time: Aug 19, 2024 09:44 AM Reporting Lab: [facility]ITALRLA[facility]OSPITALTRN [facility]ITALUSEAR[facility] [address] [facility] [address] Performing Lab: [facility] W[facility]N [facility] [address] [place] CBC AND DIFF (AUTO) NUCLEATED ERYTHROCYTE S [#/VOLUME] IN BLOOD BY AUTOMATED COUNT 0.00 10*3/u L 0.00 - 0.00 08/21 Specimen Type: BLOOD No comment entered. Ordering Provider: HIEN MAXWELL A Report Released Date/Time: Aug 19, 2024 09:44 AM Reporting Lab: [facility]ITALRLA[facility]OSPITALTRN [facility] [address] Performing Lab: [facility]USE[address] [address] [place] PSA PROSTATE SPECIFIC AG [MASS/VOLUM E] IN SERUM OR PLASMA BY IMMUNOASSAY 0.63 ng/mL 0.00 - 4.00 08/21 Specimen Type: SERUM No comment entered. Ordering Provider: HIEN MAXWELL A Report Released Date/Time: Aug 21, 2024 01:04 PM Reporting Lab: [facility]ITALRLA[facility]PITALTRN [facility] [address] Performing Lab: [facility] [address] [place] METHADONE SCREEN METHADONE [PRESENCE] IN URINE BY SCREEN METHOD None detect ed(Neg ative) 12/13 L Specimen Type: URINE Comment: DERECK test are qualitative , any L or H flags only indicate a [facility] alert was sent. Ordering Provider: RACH MCNAMARA Report Released Date/Time: Dec 14, 2023 11:59 AM Reporting Lab: [place] [facility] [place] [facility] [address] [facility] [address] Performing Lab: [place] [facility] [place] [facility] [address] [facility] [address] [place] [facility] [facility] ALCOHOL, ETHYL URINE PANEL ETHANOL [MASS/VOLUM E] [...] 14, 2023 11:59 AM Reporting Lab: [place] [facility] Al[employer] [place] [address] [address] Performing Lab: [facility]ST[facility] [employer] [place] [address] [address] [facility] Open Kernel LabsCEN[facility] ALCOHOL, ETHYL URINE PANEL PH OF [...] Dec 14, 2023 11:59 AM Reporting Lab: [facility] ZygaN [place] TradeUSETS [address] [address] Performing Lab: [facility] TradeUSE[address] [address] [facility] WOMENUSE [facility] ALCOHOL, ETHYL URINE PANEL CREATININE [...] AM Reporting Lab: [facility] [place] [facility] [address] [facility] [address] Performing Lab: [facility] [place] [place] [address] [address] [facility]ERN [facility]ITALUSE [facility] ALCOHOL, ETHYL URINE PANEL SPECIFIC [...] Dec 14, 2023 11:59 AM Reporting Lab: [facility] TRN [place] [address] [address] Performing Lab: [facility]RL TRN [facility]ITALUS[facility] [address] [address] [facility]ITALUSE [facility] AMPHETAMI GARCIA SCREEN PANEL AMPHETAMINE [...] Dec 14, 2023 11:59 AM Reporting Lab: [facility] TRN [place] [address] [address] Performing Lab: [address] [address] [facility] AMPHETAMI GARCIA SCREEN PANEL PH OF [...] Dec 14, 2023 11:59 AM Reporting Lab: [address] [address] Performing Lab: [address] [address] [facility] AMPHETAMI GARCIA SCREEN PANEL CREATININE [MASS/VOLUM [...] Dec 14, 2023 11:59 AM Reporting Lab: [address] [address] Performing Lab: [address] [address] [facility] AMPHETAMI GARCIA SCREEN PANEL SPECIFIC GRAVITY [...] 14, 2023 11:59 AM Reporting Lab: [place] [facility] [facility] [address] [facility] [address] Performing Lab: [place] [facility] [place] [facility] [address] [facility] [address] [place] [facility] [place] [facility] Vital Signs Combined list of inpatient and outpatient Vital Signs from Department of Defense and Veterans Affairs, ranging from 12 months to all on record, depending upon the facility. Vital Sign Value Date Comments Source SYSTOLIC BLOOD PRESSURE 114 08/21/2024 13:27:23 [place] DIASTOLIC BLOOD PRESSURE 72 08/21/2024 13:27:23 [place] PULSE OXIMETRY 96 08/21/2024 13:27:23 [place] WEIGHT 285.2 08/21/2024 13:27:23 [place] BMI 39 kg/m2 08/21/2024 13:27:23 [place] TEMPERATURE 97.5 08/21/2024 13:27:23 [place] PULSE 86 08/21/2024 13:27:23 [place] Encounters Combined list of: 1) Encounters from Department of Veterans Affairs facilities going backup to the last 18 months, not all [place] inpatient encounters are included; 2) Encounters from the Department of Defense facilities going backup to 280 months. Location Location Details Encounter Type Encounter Number Reason For Visit Attending Provider ADM Date DC Date Status Disposition Source [facility] [place] [facility] Outpatient Encounter [id number] 04/03 [facility] [place] [place] [facility] Outpatient Encounter [id number] 05/16 [facility] [place] [facility] [place] [facility] Outpatient Encounter [id number] 05/17 [facility] [place] [place] HEARING AID REPAIR/MOD IFYING [id number] Diagnos is: ICD-10- CM Z46.1 Encount er for fitting and adjustm ent of hearing aid ERIC BRUCE 05/24 [facility] [place] En[facility] [id number] 05/29 [facility] [place] HEARING AID REPAIR/MOD IFYING [id number] Diagnos is: ICD-10- CM H90.3 Sensori neural hearing loss, ERIC Simmons 06/07 [facility] [place] CONFORMITY EVALUATION [id number] Diagnos is: ICD-10- CM Z46.1 Encount er for fitting and adjustm ent of hearing aid SENIOR,ALBERT GRANT L 07/06 [facility] [place] Out[facility] Encounter [id number] Diagnos is: ICD-10- CM Z02.89 Encount er for other adminis trative examina MICAELA Wagoner 08/14 [facility] En[facility] [id number] 08/16 [facility] [place] En[facility] [id number] 08/16 [facility] [place] [facility] OFFICE O/[place] 40 MIN [id number] Diagnos is: ICD-10- CM E78.5 Hyperli pidemia , unspeci fied SMALL,TAYLOR RICHARDSON J 08/16 [place] [facility] En[facility] [id number] 08/21 [facility] [place] En[facility] [id number] 08/22 [facility] [place] MTMS BY PHARM ADDL 15 MIN [id number] Diagnos is: ICD-10- CM M54.50 Low back pain, unspeci fied RICKY MCNAMARA 08/23 [facility] En[facility] [id number] 08/26 [facility] [place] [place] 40 [place] [id number] Diagnos is: ICD-10- CM G89.29 Other chronic pain KUPFERSCHM ID,HUNG B 08/27 [facility] [place] En[facility] [id number] 08/29 [facility] [place] MTMS BY PHARM ADDL 15 MIN [id number] Diagnos is: ICD-10- CM M54.50 Low back pain, unspeci fied RICKY MCNAMARA 08/30 [facility] HEARING AID FITTING/CH ECKING [id number] Diagnos is: ICD-10- CM Z46.1 Encount er for fitting and adjustm ent of hearing aid Cinda GRANADOS 08/30 [facility] [place] En[facility] [id number] 09/05 [facility] [place] MTMS BY PHARM ADDL 15 MIN [id number] Diagnos is: ICD-10- CM M54.50 Low back pain, unspeci fied RICKY MCNAMARA S 09/06 [facility] En[facility] [id number] 09/06 [facility] [place] En[facility] [id number] 09/12 [facility] [place] MTMS BY PHARM ADDL 15 MIN [id number] Diagnos is: ICD-10- CM M54.50 Low back pain, unspeci fied RICKY MCNAMARA S 09/13 [facility] [place] En[facility] [id number] 09/19 [facility] MTMS BY PHARM ADDL 15 MIN [id number] Diagnos is: ICD-10- CM M54.50 Low back pain, unspeci fied RICKY MCNAMARA S 09/20 [facility] [place] En[facility] [id number] 09/24 [facility] [place] En[facility] [id number] 09/26 [facility] MTMS BY PHARM ADDL 15 MIN [id number] Diagnos is: ICD-10- CM M54.50 Low back pain, unspeci fied RICKY MCNAMARA S 09/27 [facility] [place] En[facility] [id number] 09/27 [facility] [place] HEARING AID REPAIR/MOD IFYING [id number] Diagnos is: ICD-10- CM Z46.1 Encount er for fitting and adjustm ent of hearing aid SENIOR,ALBERT GRANT L 09/30 [facility] [place] OFFICE O/P EST LOW 20 MIN [id number] Diagnos is: ICD-10- CM L84 Corns and callosi ties OLEG LEBRONAngel ES F 10/10 [place] [facility] En[facility] [id number] 10/17 [facility] [place] MTMS BY PHARM ADDL 15 MIN [id number] Diagnos is: ICD-10- CM M54.50 Low back pain, unspeci fied RICKY MCNAMARA S 10/18 [facility] [place] QNHP OL DIG ASSMT&MGMT 5-10 [id number] Diagnos is: ICD-10- CM M54.50 Low back pain, unspeci fied PRANAV VIRAMONTES 10/18 [place] [facility] Out[facility] En[facility] [id number] 11/11 [facility] MTMS BY PHARM ADDL 15 MIN [id number] Diagnos is: ICD-10- CM M54.50 Low back pain, unspeci fied RICKY MCNAMARA ROBEL S 11/12 [facility] En[facility] [id number] 11/27 [facility] [place] En[facility] [id number] 12/03 [facility] [place] QNHP OL DIG ASSMT&MGMT 5-10 [id number] Diagnos is: ICD-10- CM M54.50 Low back pain, unspeci fied RICKY MCNAMARA ROBEL S 12/03 [facility] [place] En[facility] [id number] 12/12 [facility] [place] MTMS BY PHARM ADDL 15 MIN [id number] Diagnos is: ICD-10- CM M54.50 Low back pain, unspeci fied RICKY MCNAMARA ROBEL S 12/13 [facility] [place] En[facility] [id number] 12/13 [facility] En[facility] [id number] 12/13 [facility] [place] En[facility] [id number] 12/25 [facility] [place] MTMS BY PHARM ADDL 15 MIN [id number] Diagnos is: ICD-10- CM M54.50 Low back pain, unspeci fied RICKY MCNAMARA S 12/27 [facility] En[facility] [id number]/09 [facility] [place] MTMS BY PHARM ADDL 15 MIN [id number] 1. Diagnos is: ICD-10- CM M54.50 Low back pain, unspeci fied RICKY MCNAMARA S 01/10 [facility] HEARING AID REPAIR/MOD IFYING [id number] 1. Diagnos is: ICD-10- CM Z46.1 Encount er for fitting and adjustm ent of hearing aid SENIORALBERT L 01/13 [facility] En[facility] [id number] 02/06 [facility] MTMS BY PHARM ADDL 15 MIN [id number] Diagnos is: ICD-10- CM M54.50 Low back pain, unspeci fied RICKY MCNAMARA S 02/07 [facility] [place]MIN [id number] Diagnos is: ICD-10- CM Z23 Encount er for immuniz ASHU Diaz 02/07 [facility] En[facility] [id number] 02/07 [facility] HC PRO PHONE CALL 5-10 MIN [id number] Diagnos is: ICD-10- CM G89.29 Other chronic pain URSULA SCOTT 02/17 [facility] En[facility] [id number] 02/24 [facility] MTMS BY PHARM ADDL 15 MIN [id number] Diagnos is: ICD-10- CM M54.50 Low back pain, unspeci fied RICKY MCNAMARA S 02/25 [facility] En[facility] [id number] 03/20 [facility] MTMS BY PHARM ADDL 15 MIN [id number] 1. Diagnos is: ICD-10- CM M54.50 Low back pain, unspeci fied RICKY MCNAMARA S 03/21 [facility] Out[facility] Encounter [id number] [facility] Encounter [id number] 04/21 [facility] MTMS BY PHARM ADDL 15 MIN [id number] 1. Diagnos is: ICD-10- CM M54.50 Low back pain, unspeci fied RICKY MCNAMARA S 04/22 [facility] Out[facility] Encounter [id number] 04/22 [facility] Out[facility] Encounter [id number] [facility] MTMS BY PHARM ADDL 15 MIN [id number] Diagnos is: ICD-10- CM M54.50 Low back pain, unspeci fied ANDERSRICKY MAHONEY S 05/23 [facility] Out[facility] Encounter [id number] 05/29 [facility] Encounter [id number] [facility] OFFICE O/P EST HI 40 MIN [id number] Diagnos is: ICD-10- CM M54.50 Low back pain, unspeci fied CUTLERNATHANIEL MELODY S 06/05 [facility] HEARING AID FITTING/CH ECKING [id number] Diagnos is: ICD-10- CM Z46.1 Encount er for fitting and adjustm ent of hearing aid Cinda GRANADOS 06/05 [facility] Out[facility] Encounter [id number] [facility] Out[facility] Encounter [id number] 06/26 [facility] MTMS BY PHARM ADDL 15 MIN [id number] Diagnos is: ICD-10- CM M54.50 Low back pain, unspeci fied RICKY MCNAMARA S 06/27 [facility] Out[facility] Encounter [id number] 06/27 [facility] OFFICE O/P NEW [place] 60 MIN [id number] Diagnos is: ICD-10- CM G89.4 Chronic pain syndrom e ROGELIO LAY THI 06/30 [facility] PT EVAL MOD COMPLEX 30 MIN [id number] Diagnos is: ICD-10- CM G89.4 Chronic pain syndrom e URSULA SCOTT EEN 06/30 [facility] ASSMT/REAS SESSMENT [id number] Diagnos is: ICD-10- CM G89.4 Chronic pain syndrom e JIMMY PALN IFALEX 06/30 [facility] Out[facility] Encounter [id number] 07/24 [facility] MTMS BY PHARM ADDL 15 MIN [id number] Diagnos is: ICD-10- CM M54.50 Low back pain, unspeci fied RICKY MCNAMARA S 07/25 [facility] Out[facility] Encounter [id number] 08/21 [facility] [place] Outpatient Encounter [id number] 08/21 [place] [facility] Encounter [id number] 08/21 [facility] Outpatient Encounter [id number] 08/22 [facility] Outpatient Encounter [id number] 08/28 [facility] MTMS BY PHARM ADDL 15 MIN [id number] Diagnos is: ICD-10- CM M54.50 Low back pain, unspeci fied RICKY MCNAMARA S 08/29 [facility] HEARING AID FITTING/CH ECKING [id number] Diagnos is: ICD-10- CM Z46.1 Encount er for fitting and adjustm ent of hearing aid Cinda GRANADOS 09/02 [facility] [place] OFFICE O/P EST LOW 20 MIN [id number] Diagnos is: ICD-10- CM L60.0 Ingrowi ng DAWSON Moore ES F 09/03 [facility]ARM ADDL 15 MIN [id number] Diagnos is: ICD-10- CM E66.9 Obesity , unspeci fiNIKA Suarez 09/05 [place] [facility] Outpatient Encounter [id number] 09/08 [facility] Social History Combined list of available smoking, tobacco, and other social history from Department of Defense and Veterans Affairs facilities. Social History Type Response Date Comment Source Tobacco smoking status NHIS [facility]-TOBACCO USE FOR[facility] CIGARETTES [facility] History of tobacco use VA-TOBACCO NEVER USED OTHER TYPE 06/30/2024 [facility] History of tobacco use [place]-TOBACCO QUIT 15 YRS OR MORE 11/01/2022 [facility] History of tobacco use [place]-TOBACCO NEVER USED 11/03/2021 [facility] History of tobacco use [place]-TOBACCO FORMER USER 10/19/2020 [facility] of [facility]2018 [facility] History of tobacco use QUIT TOBACCO USE > 7 YEARS AGO 08/16/2017 stopped smoking over 25 years ago [facility] History of tobacco use QUIT TOBACCO USE > 7 YEARS AGO 08/15/2016 quit 25 years ago [facility] History of tobacco use QUIT TOBACCO USE > 7 YEARS AGO 08/13/2015 smoked cig, ~20/day, quit 20 yrs ago [facility] History of tobacco use QUIT TOBACCO USE > 7 YEARS AGO 08/10/2014 quit 20+ yrs ago [facility] This section is an empty social history section. [facility] Plan of Care List of future care activities from Department of Veterans Affairs facilities. Additional future care activities may be listed in the Assessment and Plan section. Date/Time Care Activity Care Activity Detail Facili ty 09/26/2024 AMBULATORY - MEDICINE AMBULATORY - MEDICI [facility] Advance Directives List of completed, amended, or rescinded Advance Directives on record at Department of Veterans Affairs facilities. An actual copy of the Directive is not included. Date Advance Directive Provider Source 12/02/2020 ADVANCE DIRECTIVE ZAIRE COMER
--- OUTSIDE RECORDS SUMMARY | 2024-09-17 15:35 | XMS_ITS | Encounter Summary ---
Author Name [facility] [facility] [place] Address [address] [place] [id number] Care Team Providers Care Electric Utility Lineworker Name Role Phone KRISTOPHER MAXWELL Primary Care [...] EMILY STEELE [id number] 1 May 28, 2017 [id number] [place] MA[facility] PATIENT MEDICARE (WNR) MEDICARE (M) PART A Mar 28, 2021 PART A [id number] [place] PATIENT MEDICARE (WNR) MEDICARE (M) PART B Mar 28, 2021 PART B [id number] [phone] [place] MAK PATIENT MEDICARE (WNR) MEDICARE (M) PART A Mar 28, 2021 PART A [id number] [phone] OBDULIO,W ILLIAM PATIENT MEDICARE (WNR) MEDICARE (M) PART B Mar 28, 2021 PART B [id number] OBDULIO,W ILLIAM PATIENT OPTUM RX PRESCRIPT ION RX May 28, 2022 [facility] [id number] [phone] OBDULIO,W ILLIAM PATIENT [facility] RX PRESCRIPT ION RX May 28, 2022 [facility] [id number] [phone] OBDULIO,W ILLIAM PATIENT OPT[facility] RX PRESCRIPT ION RX Sep 11, 2018 [facility] [id number] OBDULIO,W ILLIAM PATIENT [facility] May 28, 2017 [id number] OBDULIO,W ILLIAM [facility] May 28, 2017 [facility] [id number] OBDULIO,W ILLIAM [facility]FA[facility] May 28, 2017 [id number] [phone] OBDULIO,W ILLIAM PATIENT [facility] (R) [facility](WN R) May 28, 2017 (WNR) [id number] OBDULIO,W ILLIAM PATIENT [facility] ([facility] Sep 11, 2018 [id number] [phone] OBDULIO,W ILLIAM PATIENT Selected Encounter This section includes the information on record at [place] for the Encounter. Date/Time Encounter Type Encounter Description Reason Provider Source Sep 03, 2024 10:30 AM OFFICE O/P EST LOW 20 MIN PODIATRY ICD-10-CM L60.0 Ingrowing SANTOS Moore eSrgey Encounter Template Text not used by [place] Assessments - Encounter Diagnoses This section includes the primary and secondary diagnoses documented for the Encounter. Date/Time Primary/Secondary Diagnosis Diagnosis Name Provider Source Sep 03, 2024 10:59 AM PRIMARY Ingrowing SANTOS Moore Sep 03, 2024 10:59 AM SECONDARY Corns and callosities SANTOS LEBRON [facility] Sep 03, 2024 10:59 AM SECONDARY Pain in left foot SANTOS LEBRON [facility] Sep 03, 2024 10:59 AM SECONDARY Pain in left toe(s) SANTOS LEBRON [facility] Sep 03, 2024 10:59 AM SECONDARY Pain in right toe(s) SANTOS LEBRON [facility] Plan of Treatment: Future Appointments (+ 6 months) and Future Tests (+/- 45 days) The Plan of Treatment section includes future care activities for the patient [facility] This section includes future appointments and future orders which are active, pending or scheduled. Future Appointments This section includes appointments that were scheduled to occur 6 months from the date of the Encounter, up to a maximum of 20 appointments. The data comes from all [facility]. Appointment Date/Time Appointment Type Appointme nt Facility Name Sep 05, 2024 02:30 PM AMBULATORY [place] MEDICINE [place] [facility] [place] [facility] September 26, 2024 08:30 AM AMBULATORY - MEDICINE [facility] [place] [facility] October 15, 2024 03:00 PM AMBULATORY - NONE [facility] [place] [facility] Oct 27, 2024 11:30 AM AMBULATORY - MEDICINE [facility] [place] [facility] Nov 03, 2024 02:00 PM AMBULATORY - MEDICINE [facility] [place] [facility] Nov 25, 2024 09:00 AM AMBULATORY - REHAB MEDICIN E [facility] [place] [facility] Jan 14, 2025 10:30 AM AMBULATORY - MEDICINE [facility] Active, Pending, and Scheduled Orders This section includes a listing of several types of active, pending, and scheduled orders, including clinic medications orders, diagnostic test orders, procedure orders and consult orders; where the start date of the order is 45 days before the date of the Encounter or 45 days after the date of theEncounter. The data comes from all [facility]. Test Date/Time Test Type Test Details Facility Name Aug 21, 2024 01:34 PM Consult Order TELE-EYE S CREENING CONSULT/SPOPC (OUTPT) Cons Spinning Operator's Choice [facility] Sep 05, 2024 02:57 PM Consult Order L2 CONSULT (LOW ACUITY/INTENSITY TELEHEALTH) Cons Spinning Operator's Choice [facility] Lab Results: +/- 30 days of the encounter This section includes the Chemistry and Hematology Lab Results on record with [place] for the patient. Radiology Reports and Pathology Reports are provided separately, in subsequent sections. Lab Results This section contains the Chemistry/Hematology Results that were resulted 30 days before or 30 daysafter the date of the Encounter. Date/Time Source Result Type Result - Unit Interpretation Reference Range Specimen Type Comment Aug 21, 2024 01:32 PM [facility] TSH SERUM Specimen Type: SERUM No comment entered. Ordering Provider: KRISTOPHER MAXWELL Report Released Date/Time: Aug 19, 2024 09:44 AM Reporting Lab: [address] [address] Performing Lab: [address] [address] TSH 0.55 u[IU]/mL 0.35-5.00 Aug 21, 2024 01:32 PM [facility] BASIC METABOLIC PANEL (non-fasting) SERUM Specimen Type: SERUM No comment entered. Ordering Provider: KRISTOPHER MAXWELL Report Released Date/Time: Aug 19, 2024 09:44 AM Reporting Lab: [address] [address] Performing Lab: [address] [address] UREA NITROGEN 8 mg/dL 7-25 GLUCOSE 80 mg/dL 65-100 SODIUM 136 mmol/L 135-145 POTASSIUM 3.8 mmol/L 3.5-5.0 CHLORIDE 107 mmol/L 100-110 CO2 21 meq/L 20-30 CALCIUM 8.3 mg/dL L 8.5-10.2 CREATININE, Serum 0.77 mg/dL 0.50-1.40 eGFR(CKD-EPI 2020) >90 mL/min >60 Aug 21, 2024 01:32 PM [facility] LIPID PANEL, NON FASTING SERUM Specim en Type: SERUM No comment entered. Ordering Provider: KRISTOPHER MAXWELL Report Released Date/Time: Aug 19, 2024 09:44 AM Reporting Lab: [address] [address] Performing Lab: [facility] [address] [address] CHOLESTEROL 173 mg/dL TRIGLYCERIDE 100 mg/dL 0-150 LDL calculated 90 mg/dL 0-129 CHOL/HDL 2.7 HDL CHOLESTEROL 63 mg/dL H 40-60 Aug 21, 2024 01:32 PM [facility] LIVER FUNCTION SERUM Specimen Type: SERUM No comment entered. Ordering Provider: KRISTOPHER MAXWELL Report Released Date/Time: Aug 19, 2024 09:44 AM Reporting Lab: [address] [address] Performing Lab: [address] [address] PROTEIN,TOTAL 7.0 g/dL 6.0-8.3 ALBUMIN 3.7 g/dL 3.5-5.0 ALKALINE PHOSPHATASE 73 U/L 40-150 AST 17 U/L 5-34 ALT 16 U/L BILIRUBIN, TOTAL 0.5 mg/dL 0.2-1.2 Aug 21, 2024 01:32 PM [facility] HEMOGLOBIN A1C PANEL BLOOD Specimen T ype: [...] Aug 19, 2024 09:44 AM Reporting Lab: [address] [address] Performing Lab: [address] [address] HEMOGLOBIN A1C 5.6 4.0-5.6 Aug 21, 2024 01:32 PM [facility] CBC AND DIFF (AUTO) BLOOD Specimen Ty pe: BLOOD No comment entered. Ordering Provider: KRISTOPHER MAXWELL Report Released Date/Time: Aug 19, 2024 09:44 AM Reporting Lab: [address] [address] Performing Lab: [facility] [address] [facility] [address] WBC 7.57 10*3/uL 4.50-11.00 RBC 4.38 10*6/uL [...] 10*3/uL 0.00-0.00 Aug 21, 2024 01:32 PM [facility] PSA SERUM Sp ecimen Type: SERUM No comment entered. Ordering Provider: KRISTOPHER MAXWELL Report Released Date/Time: Aug 21, 2024 01:04 PM Reporting Lab: [address] [address] Performing Lab: [address] [address] PSA 0.63 ng/mL 0.00-4.00 Social History: Smoking Status (Most current) and Tobacco Use (All prior to encounter date) This section includes the most current, and the historical, smoking and tobacco- related health factors from the [place] facility where the Encounter took place. Current Smoking Status This section includes the most current smoking, or tobacco-related health factor, from the [place] facility where the Encounter took place. Date/Time Current Smoking Status Comment Facil ity Nov 01, 2022 09:00 AM VA-TOBACCO FORMER USER [facility] Tobacco Use History This section includes a history of the smoking, or tobacco-related health factors, that were collected on or before the date of the Encounter. The data comes from the [place] facility where the Encounter took place. Date/Time Smoking Status/Tobacco Use Comment F acility Nov 01, 2022 09:00 AM VA-TOBACCO QUIT 15 YRS OR MORE [facility] Nov 03, 2021 02:00 PM VA-TOBACCO NEVER USED [facility] October 19, 2020 09:00 AM VA-TOBACCO FORMER USER [facility] October 19, 2020 09:00 AM VA-TOBACCO QUIT 15 YRS OR MORE [facility] Aug 16, 2018 12:32 PM VA-TOBACCO NEVER USED [facility] Aug 16, 2017 02:32 PM QUIT TOBACCO USE > 7 YEARS AGO stopped smoking over 25 years ago [facility] Aug 15, 2016 09:59 AM QUIT TOBACCO USE > 7 YEARS AGO quit 25 years ago [facility] Aug 13, 2015 02:47 PM QUIT TOBACCO USE > 7 YEARS AGO smoked cig, ~20/day, quit 20 yrs ago [facility] Aug 10, 2014 01:28 PM QUIT TOBACCO USE > 7 YEARS AGO quit 20+ yrs ago [facility] Advance Directives: All historical and current Section Date Range: From patient's date of to the date document was created. This section includes ALL of a patient's completed or amended [place] Advance and Rescinded Directives. The entries below indicate that a directive exists for the patient, but an actual copy is not included with this document. The data comes from all [facility]. Date Advance Directives Provider Source Dec 02, 2020 ADVANCE DIRECTIVE ZAIRE COMER IE Encounter Notes: All associated encounter notes This section contains the clinical notes associated to the Encounter. Date/Time Encounter Note(s) Provider Source Sep 03, 2024 07:46 AM PODIATRY NOTE: LOCAL TITLE: PODIATRY NOTE STANDARD TITLE: PODIATRY NOTE DATE OF NOTE: SEP 03, 2024@07:46 ENTRY DATE: SEP 03, 2024@07:46:07 AUTHOR: SANTOS LEBRON EXP COSIGNER: URGENCY: STATUS: COMPLETED LAST SEEN FOR TREATMENT: 10/11/2023 NOTE: HAS RECEIVED BOTH COVID VACCINE DOSES AT [facility] S: Pt. is a 69 yo alert [facility] MALE who is seen for CONTINUED podiatric examination AND CARE for treatment of a presenting complaint of A painful GROWTH AND INDICATES A SMALL CIRCULAR LESION PLANTAR 5TH LEFT MET HEAD THAT IS OF RECENT ONSET (SEVERAL MONTHS) AND ACUTELY PAINFUL AT THIS TIME. HE HAS BEEN SEEN BY AN OUTSIDE COMPOUND MIXER(DR. ROJAS [facility]) AND PREFERS ORTHOSES FROM [place] HIS INSURANCE WILL NOT REIMBURSE FOR THEM [...] is the source for the followin. Hyperlipidemia ([facility] [id number]) 2. Impaired Fasting Glucose ([facility] [id number]) 3. Erectile Dysfunction ([facility] [id number]) 4. Tinnitus 5. Hearing loss 6. Exposure to Potentially Hazardous Substance ([facility] [id number]) 7. Syncope and collapse 8. Low back [...] AND LOW BACK ISSUE UNDER TREATMENT [facility] Contributing factors are: shoes and increased activity-BIOMECHANICAL IMBALANCE AND WEIGHT. Previous treatment: HAS CUSTOM ORTHOSES FROM DR. ROJAS Family History: Non-contributory Social History: N/A *NOTE: [...] present physical-medical status. Protective sensation utilizing a [place] lOg monofilament is 10/10 bilateral. BIOMECHANICAL: Exam is deferred at this time BEING NON-CONTRIBUTORY TO THE CC .. A: Clinical Impression is IPK PLANTAR 5TH LEFT MET HEAD & base and medial hallux bilateral &PLANTAR FASCIITIS PT HAS REQUESTED NEW CUSTOM ORTHOSES WHICH WILL BE ORDERED AND SENT TO HIS HOME-SAME PREVIOUS PAIR. P: Treatment consists of PARING-DEBRIDEMENT OF all LESIONS WITH THE RECOMENDATION OF UTILIZING A PUMICE STONE SEVERAL TIMES A WEEK TO MAINTAIN A MINIMAL BUILD-UP OF HYPERKERATOSIS IF POSSIBLE. I DISCUSSED THE FINDINGS & PLAN WITH [...] this VA (local) and dispensed from another [place] or [facility] facility (remote) as well as inpatient orders [...] whether with a VA or non-VA provider. JLV Link Data on this list may not be complete. Please check JLSurIDx. Allergies/ADRs (Tool #5) FACILITY ALLERGY/ADR -------- No Remote Allergy/ADR Data available for this patient [facility] DIPHENHYDRAMINE Med Recon NoGlossary (Tool #1) INCLUDED IN THIS LIST: Alphabetical list of active outpatient prescriptions dispensed from this VA (local) and dispensed from another [place] or [facility] facility (remote) as well as inpatient orders (local pending and active), local clinic medications, locally documented non-VA medications, and local prescriptions that have or been discontinued in the past 90 days. Non-VA Meds Last Documented On: Nov 03, 2021 NOTE The display of VA prescriptions dispensed from another [place] or [facility] facility (remote) is limited to active outpatient prescription entries matched to National Drug File at the originating site and may not include some items such as investigational drugs, compounds, etc. NOT INCLUDED IN THIS LIST: Medications self-entered by the patient into personal health records (i.e. [employer]) are NOT included in this list. Non-VA medications documented outside this [place], remote inpatient orders (regardless of status) and remote clinic medications are NOT included in this list. The patient and provider must always discuss medications the patient is taking, regardless of where the medication was dispensed or obtained. Non-VA ACETAMINOPHEN 325MG TAB TAKE FOUR TABLETS BY MOUTH THREE TIMES A DAY NEEDED Medication prescribed by Non-VA provider. Non-VA ALFUZOSIN HCL 10MG SA TAB TAKE ONE TABLET BY MOUTH DAILY OUTPT ASPIRIN 81MG EC TAB (Status = Discontinued) TAKE ONE TABLET BY MOUTH ONCE DAILY TO PREVENT STROKE/HEART ATTACK Rx# [id number] Last Released: 03/26/24 Qty/Days Supply: 120/90 Rx Expiration Date: 08/17/24 Refills Remainin Indication: CARDIOPROTECTION OUTPT ASPIRIN 81MG EC TAB (Status = Active) TAKE ONE TABLET BY MOUTH ONCE DAILY TO PREVENT STROKE/HEART ATTACK Rx# [id number] Last Released: 08/05/24 Qty/Days Supply: 120/90 Rx Expiration Date: 08/01/25 Refills Remainin Indication: CARDIOPROTECTION OUTPT BUPRENORPHINE 150MCG BUCCAL FILM (Status = Discontinued) PLACE ONE FILM BETWEEN CHEEK AND GUM UNTIL DISSOLVED EVERY 12 HOURS FOR PAIN Rx# [id number] Last Released: 05/23/24 Qty/Days Supply: 60/30 Rx Expiration Date: 11/23/24 Refills Remainin Indication: FOR PAIN OUTPT BUPRENORPHINE 300MCG BUCCAL FILM (Status = Discontinued) PLACE ONE FILM BETWEEN CHEEK AND GUM UNTIL DISSOLVED EVERY 12 HOURS FOR PAIN Rx# [id number] Last Released: 07/01/24 Qty/Days Supply: 60 Rx Expiration Date: 12/06/24 Refills Remainin Indication: FOR PAIN OUTPT BUPRENORPHINE 300MCG BUCCAL FILM (Status = Active) PLACE ONE FILM BETWEEN CHEEK AND GUM UNTIL DISSOLVED EVERY 12 HOURS FOR PAIN Rx# [id number] Last Released: 07/28/24 Qty/Days Supply: Rx Expiration Date: 01/25/25 Refills Remainin Indication: FOR PAIN OUTPT DICLOFENAC (EQV-FLECTOR) 1.3% PATCH (Status = Active) APPLY 1 PATCH TO SKIN TWICE DAILY NEEDED FOR PAIN Rx# [id number] Last Released: 04/23/24 Qty/Days Supply: 60 Rx Expiration Date: 10/19/24 Refills Remainin Indication: FOR PAIN OUTPT NALOXONE HCL 4MG/SPRAY SOLN NASAL SPRAY (Status = ) INSTILL 1 SPRAY ONE NOSTRIL ONE TIME NEEDED FOR OPIOID OVERDOSE CALL 911 WITH ADMINISTRATION. REPEAT WITH SECOND DEVICE IF SYMPTOMS RETURN Rx# [id number] Last Released: 06/12/24 Qty/Days Supply: 06/28 Rx Expiration Date: 07/05/24 Refills Remainin Indication: FOR OPIOID OVERDOSE OUTPT PREGABALIN 225MG ORAL CAP (Status = Discontinued) TAKE ONE CAPSULE BY MOUTH TWICE DAILY FOR PAIN Rx# [id number] Last Released: 06/28/24 Qty/Days Supply: 60 Rx Expiration Date: 11/23/24 Refills Remainin OUTPT PREGABALIN 225MG ORAL CAP (Status = Discontinued) TAKE ONE CAPSULE BY MOUTH TWICE DAILY FOR PAIN Rx# [id number] Last Released: 07/11/24 Qty/Days Supply: 6030 Rx Expiration Date: 12/28/24 Refills Remainin OUTPT PREGABALIN 300MG ORAL CAP (Status = Active) TAKE ONE CAPSULE BY MOUTH TWICE DAILY FOR PAIN Rx# [id number] Last Released: 09/01/24 Qty/Days Supply: 60 Rx Expiration Date: 03/01/25 Refills Remainin Indication: FOR PAIN Non-VA TADALAFIL 5MG TAB TAKE ONE TABLET BY MOUTH DAILY SUPPLIES /jac/ SANTOS LEBRON DPM COMPOUND MIXER Signed: 09/03/2024 11:00 SANTOS LEBRON
--- OUTSIDE RECORDS SUMMARY | 2024-09-17 15:35 | XMS_ITS | Encounter Summary ---
Author Name [facility] [facility] [place] [facility] [place] Address [address] [place] [id number] Care Team Providers Care Staking Technician Name Role Phone KRISTOPHER MAXWELL Primary Care [...] EMILY STEELE [id number] 1 May 28, 2017 [id number] [phone] [place] MAK PATIENT MEDICARE (WNR) MEDICARE (M) PART A Mar 28, 2021 PART A [id number] [place] MAK PATIENT MEDICARE (WNR) MEDICARE (M) PART B Mar 28, 2021 PART B [id number] [phone] [place]on MAK PATIENT MEDICARE (WNR) MEDICARE (M) PART A Mar 28, 2021 PART A [id number] [phone] [place] MAKM PATIENT MEDICARE (WNR) MEDICARE (M) PART B Mar 28, 2021 PART B [id number] OBDULIO,W ILLIAM PATIENT OPTUM RX PRESCRIPT ION RX May 28, 2022 THPRX [id number] [phone] OBDULIO,W ILLIAM PATIENT OPTUM RX PRESCRIPT ION RX May 28, 2022 THPRX [id number] OBDULIO,W ILLIAM PATIENT OPTUM RX PRESCRIPT ION RX Sep 11, 2018 THPRX [id number] OBDULIO,W ILLIAM PATIENT [facility] May 28, 2017 [id number] OBDULIO,W ILLIAM PATIENT [facility] May 28, 2017 [facility] [id number] OBDULIO,W ILLIAM PATIENT [facility] PL[facility](WNR) [facility] RAFAEL May 28, 2017 [id number] [phone] OBDULIO,W ILLIAM PATIENT [facility] (R) [place] (WN R) May 28, 2017 (WNR) [id number] OBDULIO,W ILLIAM PATIENT [facility] Sep 11, 2018 [id number] OBDULIO,W ILLIAM PATIENT Selected Encounter This section includes the information on record at [place] for the Encounter. Date/Time Encounter Type Encounter Description Reason Provider Source October 11, 2023 02:30 PM OFFICE O/P EST LOW 20 MIN PODIATRY ICD-10-CM L84 Corns and callosities SANTOS LEBRON Sergey Encounter Template Text not used by [place] Assessments - Encounter Diagnoses This section includes the primary and secondary diagnoses documented for the Encounter. Date/Time Primary/Secondary Diagnosis Diagnosis Name Provider Source October 11, 2023 03:08 PM PRIMARY Corns and callosities SANTOS LEBRON October 11, 2023 03:08 PM SECONDARY Pain in left foot SANTOS LEBRON [place] October 11, 2023 03:08 PM SECONDARY Plantar fascial fibromatosis SANTOS LEBRON [place] Plan of Treatment: Future Appointments (+ 6 months) and Future Tests (+/- 45 days) The Plan of Treatment section includes future care activities for the patient from all [facility] This section includes future appointments and future [...] 19, 2023 08:30 AM AMBULATORY - MEDICINE [place] [facility] [place] [place] [facility] Nov 13, 2023 01:30 PM AMBULATORY - MEDICINE [place] [facility] [place] [facility] Dec 14, 2023 11:30 AM AMBULATORY - MEDICINE [place] [facility] [place] [facility] Dec 28, 2023 10:00 AM AMBULATORY - MEDICINE [place] [facility] [place] [facility] Jan 11, 2024 09:00 AM AMBULATORY - MEDICINE [place] [facility] [place] [facility] Jan 14, 2024 11:00 AM AMBULATORY - REHAB MEDICIN E [place] [facility] [place] [facility] Feb 08, 2024 08:30 AM AMBULATORY - MEDICINE [place] [facility] [place] [facility] Feb 26, 2024 08:30 AM AMBULATORY - MEDICINE [place] [facility] [place] [facility] Mar 21, 2024 08:30 AM AMBULATORY - MEDICINE [place] [facility] [place] [facility] Social History: Smoking Status (Most current) and Tobacco Use (All prior to encounter date) This section includes the most current, and the historical, smoking and tobacco- related health factors from the [place] facility where the Encounter took place. Current Smoking Status This section includes the most current smoking, or tobacco-related health factor, from the [place] facility where the Encounter took place. Date/Time Current Smoking Status [place] Nov 01, 2022 09:00 AM VA-TOBACCO FORMER USER [place] Tobacco Use History This section includes a history of the smoking, or tobacco-related health factors, that were collected on or before the date of the Encounter. The data comes from the [place] facility where the Encounter took place. Date/Time Smoking Status/Tobacco Use Comment F acility Nov 01, 2022 09:00 AM VA-TOBACCO QUIT 15 YRS OR MORE [place] Nov 03, 2021 02:00 PM VA-TOBACCO NEVER USED [place] October 19, 2020 09:00 AM VA-TOBACCO FORMER USER [place] October 19, 2020 09:00 AM VA-TOBACCO QUIT 15 YRS OR MORE [place] Aug 16, 2018 12:32 PM VA-TOBACCO NEVER USED [place] Aug 16, 2017 02:32 PM QUIT TOBACCO USE > 7 YEARS AGO stopped smoking over 25 years ago [place] Aug 15, 2016 09:59 AM QUIT TOBACCO USE > 7 YEARS AGO quit 25 years ago [place] Aug 13, 2015 02:47 PM QUIT TOBACCO USE > 7 YEARS AGO smoked cig, ~20/day, quit 20 yrs ago [place] Aug 10, 2014 01:28 PM QUIT TOBACCO USE > 7 YEARS AGO quit 20+ yrs ago [place] Advance Directives: All historical and current Section [...] Dec 02, 2020 ADVANCE DIRECTIVE ZAIRE COMER [facility] Encounter Notes: All associated encounter [...] HAS RECEIVED BOTH COVID VACCINE DOSES AT [facility] S: Pt. is a 68 yo alert WDWN CAUC MALE who is seen for CONTINUED podiatric examination AND CARE for treatment of a presenting complaint of A painful GROWTH AND INDICATES A SMALL CIRULAR LESION PLANTAR 5TH LEFT MET HAED THAT IS OF RECENT ONSET (SEVERAL MONTHS) AND ACUTELY PAINFUL AT THIS TIME. HE HAS BEEN SEEN BY AN OUTSIDE X RAY INSPECTOR(DR. ROJAS FOR NAIL CARE WELL) AND PREFERS ORTHOSES FROM PA HIS INSURANCE WILL NOT REIMBURSE FOR THEM [...] is the source for the followin. Hyperlipidemia ([facility] [id number]) 2. Impaired Fasting Glucose ([facility] [id number]) 3. Erectile Dysfunction ([facility] [id number]) 4. Tinnitus 5. Hearing loss 6. Exposure to Potentially Hazardous Substance ([facility] [id number]) 7. Syncope and collapse 8. Low back [...] HAS RECEIVED BOTH COVID VACCINE DOSES AT [facility] *PERFORMED AT CHECK-IN AND REVIEWED BY DR. LEBRON PRIOR TO TREATMENT* HPI: Pt. is a 67 yo alert WDWN CAUC MALE who presents for initial podiatric examination with Dr. Lebron for treatment of a presenting complaint of painful PLANTAR FASCIITIS PER PCP AND BEING IN NEED OF ORTHOSES. Patient has BEEN SEEN BY AN OUTSIDE X RAY INSPECTOR(DR. ROJAS FOR NAIL CARWE WELL) AND PREFERS ORTHOSES FROM PA HIS INSURANCE WILL NOT REIMBURSE FO RTHEM [...] is the source for the followin. Hyperlipidemia ([facility] [id number]) 2. Impaired Fasting Glucose ([facility] [id number]) 3. Erectile Dysfunction ([facility] [id number]) 4. Tinnitus 5. Hearing loss 6. Exposure to Potentially Hazardous Substance ([facility] [id number]) 7. Syncope and collapse 8. Low back [...] CONCERNS- CHANGES SINCE PREVIOUS VISIT *SEE # [id number] ABOVE Family History: Non-contributory Social History: N/A [...] present physical-medical status. Protective sensation utilizing a [place]-Zena lOg monofilament is 10/10 bilateral. BIOMECHANICAL: Exam [...] this [facility] (local) and dispensed from another PA or [facility] facility (remote) as well as inpatient orders [...] or non-VA provider. /jac/ SANTOS LEBRON DPM X RAY INSPECTOR Signed: 09/14/2022 10:37 Family History: Non-contributory Social [...] present physical-medical status. Protective sensation utilizing a [place]-Zena lOg monofilament is 10/10 bilateral. BIOMECHANICAL: Exam [...] of active outpatient prescriptions dispensed from this PA (local) and dispensed from another PA or [facility] facility (remote) as well as inpatient orders [...] or non-VA provider. /jac/ SANTOS LEBRON DPM X RAY INSPECTOR Signed: 09/14/2022 10:37 /jac/ SANTOS LEBRON DPM X RAY INSPECTOR Signed: 10/11/2023 15:09 SANTOS LEBRON
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
--- OUTSIDE RECORDS SUMMARY | 2024-09-17 15:35 | XMS_ITS | Encounter Summary ---
Author Name [facility] [place] Organization [facility] [place] Address [address] [place] [address] Care Team Providers Care Web Offset Press Feeder Name Role Phone KRISTOPHER MAXWELL Primary Care [...] EMILY STEELE [id number] 1 May 28, 2017 [id number] [place] MAK PATIENT MEDICARE (WNR) MEDICARE (M) PART A Mar 28, 2021 PART A [id number] [place] MAK PATIENT MEDICARE (WNR) MEDICARE (M) PART B Mar 28, 2021 PART B [id number] [phone] [place] MAK PATIENT MEDICARE (WNR) MEDICARE (M) PART A Mar 28, 2021 PART A [id number] [place] MAK PATIENT MEDICARE (WNR) MEDICARE (M) PART B Mar 28, 2021 PART B [id number] [phone] [place] MAK PATIENT OPTUM RX PRESCRIPT ION RX May 28, 2022 THPRX [id number] [place] MAK PATIENT OPTUM RX PRESCRIPT ION RX May 28, 2022 THPRX [id number] OBDULIO,W ILLBIJAL PATIENT OPTUM RX PRESCRIPT ION RX Sep 11, 2018 THPRX [id number] OBDULIO,W ILLIAM PATIENT [facility] May 28, 2017 [id number] OBDULIO,W ILLIAM PATIENT [facility] May 28, 2017 [facility] [id number] OBDULIO,W ILLIAM PATIENT [facility] HEALTH PLAN(WNR) [facility] May 28, 2017 [id number] [phone] OBDULIO,W ILLIAM PATIENT [facility] (WNR) [facility](WN R[facility] May 28, 2017 (WNR) [id number] OBDULIOWeston GUY PATIENT [facility]) [facility] ANAYA Sep 11, 2018 [id number] OBDULIOWeston GUY PATIENT Selected Encounter This section includes the information on record at CT for the Encounter. Date/Time Encounter Type Encounter Description Reason Pro vider Source Aug 21, 2024 01:00 PM Outpatient Encounter PRIMARY CARE/MEDICINE IHE Encounter Template Text not used by [...] MEDICINE [facility] [place] [facility] Sep 02, 2024 09:00 AM AMBULATORY - REHAB MEDICIN [facility] [place] [facility] Sep 03, 2024 10:30 AM [facility] [place] Sep 05, 2024 02:30 PM AMBULATORY - MEDICINE [facility] [place] [facility] September 26, 2024 08:30 AM AMBULATORY - MEDICINE [facility] [place] [facility] October 15, 2024 03:00 PM AMBULATORY - NONE [facility] [place] [facility] Oct 27, 2024 11:30 AM AMBULATORY - MEDICINE [facility] [place] [facility] Nov 03, 2024 02:00 PM AMBULATORY - MEDICINE [facility] [place] [facility] Nov 25, 2024 09:00 AM AMBULATORY - REHAB MEDICIN E [facility] [place] [facility] Jan 14, 2025 10:30 AM [facility] Active, Pending, and Scheduled Orders This section includes a listing of several types of active, pending, and scheduled orders, including clinic medications orders, diagnostic test orders, procedure orders and consult orders; where the start date of the order is 45 days before the date of the Encounter or 45 days after the date of theEncounter. The data comes from all [place] treatment facilities. Test Date/Time Test Type Test Details Facility Name Aug 21, 2024 01:34 PM Consult Order TELE-EYE S CREENING CONSULT/SPOPC (OUTPT) Cons [facility] Sep 05, 2024 02:57 PM Consult Order L2 CONSULT (LOW ACUITY/INTENSITY TELEHEALTH) Cons [facility] Lab Results: +/- 30 days of [...] Type Comment Aug 21, 2024 01:32 PM [facility] TSH SERUM Specimen Type: SERUM No comment entered. Ordering Provider: KRISTOPHER MAXWELL Report Released Date/Time: Aug 19, 2024 09:44 AM Reporting Lab: [address] [address] Performing Lab: [address] [address] TSH 0.55 u[IU]/mL 0.35-5.00 Aug 21, 2024 01:32 PM [facility] BASIC METABOLIC PANEL (non-fasting) SERUM Specimen Type: SERUM No comment entered. Ordering Provider: KRISTOPHER MAXWELL Report Released Date/Time: Aug 19, 2024 09:44 AM Reporting Lab: [address] [address] Performing Lab: [address] [address] UREA NITROGEN 8 mg/dL 7-25 GLUCOSE 80 mg/dL 65-100 SODIUM 136 mmol/L 135-145 POTASSIUM 3.8 mmol/L 3.5-5.0 CHLORIDE 107 mmol/L 100-110 CO2 21 meq/L 20-30 CALCIUM 8.3 mg/dL L 8.5-10.2 CREATININE, Serum 0.77 mg/dL 0.50-1.40 eGFR(CKD-EPI 2020) >90 mL/min >60 Aug 21, 2024 01:32 PM [facility] LIPID PANEL, NON FASTING SERUM Specim en Type: SERUM No comment entered. Ordering Provider: KRISTOPHER MAXWELL Report Released Date/Time: Aug 19, 2024 09:44 AM Reporting Lab: [address] [address] Performing Lab: [address] [address] CHOLESTEROL 173 mg/dL TRIGLYCERIDE 100 mg/dL 0-150 LDL calculated 90 mg/dL 0-129 CHOL/HDL 2.7 HDL CHOLESTEROL 63 mg/dL H 40-60 Aug 21, 2024 01:32 PM [facility] LIVER FUNCTION SERUM Specimen Type: SERUM No comment entered. Ordering Provider: KRISTOPHER MAXWELL Report Released Date/Time: Aug 19, 2024 09:44 AM Reporting Lab: [address] [address] Performing Lab: [address] [address] PROTEIN,TOTAL 7.0 g/dL 6.0-8.3 ALBUMIN 3.7 g/dL 3.5-5.0 ALKALINE PHOSPHATASE 73 U/L 40-150 AST 17 U/L 5-34 ALT 16 U/L BILIRUBIN, TOTAL 0.5 mg/dL 0.2-1.2 Aug 21, 2024 01:32 PM [facility] HEMOGLOBIN A1C PANEL BLOOD Specimen T ype: [...] Aug 19, 2024 09:44 AM Reporting Lab: [address] [address] Performing Lab: [address] [address] HEMOGLOBIN A1C 5.6 4.0-5.6 Aug 21, 2024 01:32 PM [facility] CBC AND DIFF (AUTO) BLOOD Specimen Ty pe: BLOOD No comment entered. Ordering Provider: KRISTOPHER MAXWELL Report Released Date/Time: Aug 19, 2024 09:44 AM Reporting Lab: [address] [address] Performing Lab: [address] [address] WBC 7.57 10*3/uL 4.50-11.00 RBC 4.38 10*6/uL [...] 10*3/uL 0.00-0.00 Aug 21, 2024 01:32 PM [facility] PSA SERUM Sp ecimen Type: SERUM No comment entered. Ordering Provider: KRISTOPHER MAXWELL Report Released Date/Time: Aug 21, 2024 01:04 PM Reporting [facility] [address] [address] Performing [facility]: [facility] [address] [address] PSA 0.63 ng/mL 0.00-4.00 Vital Signs: All [...] and tobacco- related health factors from the [place] facility where the Encounter took place. Current Smoking Status This section includes the most current smoking, or tobacco-related health factor, from the [place] facility where the Encounter took place. Date/Time Current Smoking Status Comment Facil ity Nov 01, 2022 09:00 AM VA-TOBACCO QUIT 15 YRS OR MORE [facility] Tobacco Use History This section includes a history of the smoking, or tobacco-related health factors, that were collected on or before the date of the Encounter. The data comes from the [place] facility where the Encounter took place. Date/Time Smoking Status/Tobacco Use Comment F acility Nov 01, 2022 09:00 AM VA-TOBACCO QUIT 15 YRS OR MORE [facility] Nov 03, 2021 02:00 PM VA-TOBACCO NEVER USED [facility] October 19, 2020 09:00 AM VA-TOBACCO FORMER USER [facility] October 19, 2020 09:00 AM VA-TOBACCO QUIT 15 YRS OR MORE [facility] Aug 16, 2018 12:32 PM VA-TOBACCO NEVER USED [facility] Aug 16, 2017 02:32 PM QUIT TOBACCO USE > 7 YEARS AGO stopped smoking over 25 years ago [facility] Aug 15, 2016 09:59 AM QUIT TOBACCO USE > 7 YEARS AGO quit 25 years ago [facility] Aug 13, 2015 02:47 PM QUIT TOBACCO USE > 7 YEARS AGO smoked cig, ~20/day, quit 20 yrs ago [facility] Aug 10, 2014 01:28 PM QUIT TOBACCO USE > 7 YEARS AGO quit 20+ yrs ago [facility] Advance Directives: All historical and current Section Date Range: From patient's date of to the date document was created. This section includes ALL of a patient's completed or amended CT Advance and Rescinded Directives. The entries below indicate that a directive exists for the patient, but an actual copy is not included with this document. The data comes from all [facility]. Date Advance Directives Provider Source Dec 02, 2020 ADVANCE DIRECTIVE ZAIRE COMERLD
--- OUTSIDE RECORDS SUMMARY | 2024-09-17 15:35 | XMS_ITS | Clinical Summary ---
Author Organization [facility] Address [address] [place] [address] Care Team Providers Care Cleaning Supervisor Name Role Phone Pcp, No Primary Care Provider Unavailabl e Allergies No known active allergies Medications oxyCODONE (ROXICODONE) 5 MG immediate release tablet Take 1 tablet (5 mg total) by mouth 3 times daily (every 8 hours) as needed for severe pain. Max Daily Amount: 15 mg 5 tablet 10/13/2023 Active Immunizations Immunization Administration Dates Next Due Tdap 10/12/2023 Social History Tobacco Use Types Packs/Day Years Used Date Smoking Tobacco: Never Assessed Sex and Gender Information Value Date Recorded Sex Assigned at Male 10/12/2023 6:26 PM EDT Legal Sex Male 9:44 AM EST Gender Identity Male 10/12/2023 6:26 PM EDT [...] on patient's age to complete this topic Insurance [employer] [facility] [employer] Care Teams Cleaning Supervisor Relationship Specialty Start Date End Date Pcp, No PCP - General General Medicine 10/12/23
--- OUTSIDE RECORDS SUMMARY | 2024-09-17 15:35 | XMS_ITS | Data Portability ---
Author Organization [place] [facility] Address [address] [facility] [address] [place] [address] Care Team Providers Care Wellness Coordinator Name Role Phone TRA FAJARDO Primary [...] view 023 09/06/19 23 tamara [facility], [address], [address], [place], [address], 3 11:57:26 Medication Orders None record ed. Patient TargetsNo targets recorded. Patient InstructionsNo instructions recorded. Reason for Referral None Reported. Procedures Surgical History Date Name Laterality Status Provider Name and Address Organization Details Recorded Time Total knee arthroplasty completed Ela Ocampo [facility], 09/05/2022 09:24:29 surgical procedure on cervical spine completed Ela Ocampo [facility] 09/05/2022 09:24:41 operation on lumbar spine completed Ela Ocampo [facility] 09/05/2022 09:24:52 Imaging Results None recorded. [...] Updated DateTime 09/05/2022 182.88 cm 33.9 kg/m2 935682.[address] [facility] 09/05/2022 09:24:01 Social History None recorded. [...] Note 4704 MD LV Bolanosbrianda salgado [address] [facility] [address] [place] [address] 09/05/2022 09:07:56 09/05/2022 10:09:21 Pain of right knee joint [id number] M25.561 Health Concerns Section Related Observation LastModified by Organization Detai ls LastModified Time None Recorded Concern Status LastModified by Organization Details LastModified Time None Recorded Advance Directives Directive None Recorded Payers Encounter Date Sequence Insurance Name Policy Number Policy Lee Covered Member ID Lee Member ID Guarantor Name 09/05/2022 1 [facility] (POS) [id number] Aris Hernandez [id number] Aris Heranndez Notes Date Note Type Note Provider Name [...] exercise program. Victorino De La Cruz MD [address] [place] [address], [address], [place] [facility], 09/05/2022 10:03:18
--- OUTSIDE RECORDS SUMMARY | 2024-09-17 15:35 | XMS_ITS ---
Author Name [facility] [facility] [place] [facility] [place] Address [address] [place] [address] Care Team Providers Care Machine Shop Specialist Name Role Phone KRISTOPHER MAXWELL Primary [...] Name Patient's Relationship to Policy Lee EMILY PRESCRIPT ION [id number] 1 May 28, 2017 [id number] [phone] [place] MAK PATIENT MEDICARE (WNR) MEDICARE (M) PART A Mar 28, 2021 PART A [id number] [place] MAK PATIENT MEDICARE (WNR) MEDICARE (M) PART B Mar 28, 2021 PART B [id number] [phone] [place] MAK PATIENT MEDICARE (WNR) MEDICARE (M) PART A Mar 28, 2021 PART A [id number] OBDULIO,W ILLIAM PATIENT MEDICARE (WNR) MEDICARE (M) PART B Mar 28, 2021 PART B [id number] OBDULIO,W ILLIAM PATIENT OPTUM RX PRESCRIPT ION RX May 28, 2022 THPRX [id number] [phone] OBDULIO,W ILLIAM PATIENT OPTUM RX PRESCRIPT ION RX May 28, 2022 THPRX [id number] OBDULIO,W ILLIAM PATIENT OPTUM RX PRESCRIPT ION RX Sep 11, 2018 THPRX [id number] [phone] OBDULIO,W ILLIAM PATIENT [facility] HEALTH PLAN [facility] ANAYA E May 28, 2017 [id number] OBDULIO,W ILLIAM PATIENT [facility] HEALTH PLAN [facility] May 28, 2017 [facility] [id number] OBDULIO,W ILLIAM PATIENT [facility] HEALTH PLAN(WNR) [facility] TON RAFAEL May 28, 2017 [id number] OBDULIO,W ILLIAM PATIENT [facility] (R) [place] (WN R) May 28, 2017 ([facility]) [id number] [phone] OBDULIO,W ILLIAM PATIENT [facility] Sep 11, 2018 [id number] [phone] OBDULIO,W ILLIAM PATIENT Selected Encounter This section includes the information on record at [place] for the Encounter. Date/Time Encounter Type Encounter Description Reason Provider Source Jun 05, 2024 11:00 AM HEARING AID FITTING/CHECKIN G AUDIOLOGY ICD-10-CM Z46.1 Encounter for fitting and adjustment of hearing aid GRETCHEN GRANADOS Encounter Template Text not used by [facility] Assessments - Encounter Diagnoses This section includes the primary and secondary diagnoses documented for the Encounter. Date/Time Primary/Secondary Diagnosis Diagnosis Name Provider Source Jun 05, 2024 11:28 AM PRIMARY Encounter for fitting and adjustment of hearing aid GRETCHEN GRANADOS E [facility] [place] [facility] Jun 05, 2024 11:28 AM SECONDARY Sensorineural hearing loss, bilateral RYANABBI HEARDA E [facility] [place] [facility] Plan of Treatment: Future Appointments (+ 6 months) and Future Tests (+/- 45 days) The Plan of Treatment section includes future care activities for the patient from all [place] treatmentfacilities. This section includes future appointments and future orders which are active, pending or scheduled. Future Appointments This section includes appointments that were scheduled to occur 6 months from the date of the Encounter, up to a maximum of 20 appointments. The data comes from all [place] treatment facilities. Appointment Date/Time Appointment Type Appointme nt Facility Name Jun 27, 2024 08:30 AM AMBULATORY - MEDICINE [facility] [place] [facility] Jun 30, 2024 08:30 AM AMBULATORY [facility] MEDIC[facility] [place] [facility] Jun 30, 2024 09:30 AM AMBULATORY - MEDICINE [facility] [place] [facility] Jun 30, 2024 10:30 AM AMBULATORY - MEDICINE [facility] [place] [facility] Jul 08, 2024 10:00 AM AMBULATORY - MEDICINE [facility] [place] [facility] Jul 25, 2024 08:30 AM AMBULATORY - MEDICINE [facility] [place] [facility] Aug 21, 2024 01:00 PM [facility] Aug 29, 2024 08:30 AM AMBULATORY - MEDICINE [facility] [place] [facility] Sep 02, 2024 09:00 AM AMBULATORY - REHAB MEDICIN E [facility] [place] [facility] Sep 03, 2024 10:30 AM [facility] Sep 05, 2024 02:30 PM AMBULATORY - MEDICINE [facility] [place] [facility] September 26, 2024 08:30 AM AMBULATORY - MEDICINE [facility] [place] [facility] October 15, 2024 03:00 PM AMBULATORY - NONE [facility] [place] [facility] Oct 27, 2024 11:30 AM AMBULATORY - MEDICINE [facility] [place] [facility] Nov 03, 2024 02:00 PM [facility]UL[facility] Nov 25, 2024 09:00 AM AMBULATORY [facility]ICIN E [facility] Advance Directives: All historical and current Section Date Range: From patient's date of to the date document was created. This section includes ALL of a patient's completed or amended [facility] Advance and Rescinded Directives. The entries below indicate that a directive exists for the patient, but an actual copy is not included with this document. The data comes from all [place] facilities. Date Advance Directives Provider Source Dec 02, 2020 ADVANCE DIRECTIVE ZAIRE COMER [facility] IELD Encounter Notes: All associated encounter notes This section contains the clinical notes associated to the Encounter. Date/Time Encounter Note(s) Provider Source Jun 05, 2024 08:58 AM AUDIOLOGY E & M NO TE: [facility] TITLE: AUDIOLOGY CLINIC STANDARD TITLE: AUDIOLOGY E & M NOTE DATE OF NOTE: JUN 05, 2024@08:58 ENTRY DATE: JUN 05, 2024@08:58:37 AUTHOR: GRETCHEN GRANADOS EXP COSIGNER: URGENCY: STATUS: COMPLETED Barton has a history of bilateral sensorineural hearing loss. He was seen on 06-05-24 for hearing aid follow up regarding his [facility] BTEs/right [employer]. Both hearing aids were connected to [employer] and settings were restored. A new feedback test was performed on the right aid with good gain margins noted. Tubing was replaced on the left hearing aid and two spare left earmolds. Bia notes that the remote [place] is not working. It is not charged today- despite being on the blocker and sewer for several minutes it turned off almost immediately after being turned on. Bia reports it has been doing this even after it charges overnight. Sent in for repair, will ship to [facility]. He was advised to use the instructions to pair it to the hearing aids. HA scheduled for 09-02-24 at 10am. /jac/ Eun DA SILVA, [facility]-A STAFF [employer] PL[employer]NER Signed: 06/05/2024 12:00 GRETCHEN GRANADOS [facility]
--- OUTSIDE RECORDS SUMMARY | 2024-09-17 15:35 | XMS_ITS | Encounter Summary ---
Author Name [facility] [facility] [place] [facility] Address [address] [place] [address] Care Team Providers Care Filament Cutter Name Role Phone KRISTOPHER MAXWELL Primary [...] EMILY STEELE [id number] 1 May 28, 2017 [id number] [place] MAK PATIENT MEDICARE (WNR) MEDICARE (M) PART A Mar 28, 2021 PART A [id number] [place] MAK PATIENT MEDICARE (WNR) MEDICARE (M) PART B Mar 28, 2021 PART B [id number] [place] MAK PATIENT MEDICARE (WNR) MEDICARE (M) PART A Mar 28, 2021 PART A [id number] OBDULIO,W ILLIAM PATIENT MEDICARE (WNR) MEDICARE (M) PART B Mar 28, 2021 PART B [id number] OBDULIO,W ILLIAM PATIENT OPTUM RX PRESCRIPT ION RX May 28, 2022 THPRX [id number] [phone] OBDULIO,W ILLIAM PATIENT OPTUM RX PRESCRIPT ION RX May 28, 2022 THPRX [id number] [phone] OBDULIO,W ILLIAM PATIENT OPTUM RX PRESCRIPT ION RX Sep 11, 2018 THPRX [id number] [phone] OBDULIO,W ILLIAM PATIENT [facility] E May 28, 2017 [id number] OBDULIO,W ILLIAM PATIENT [facility] May 28, 2017 [facility] [id number] OBDULIO,W ILLIAM PATIENT [facility](WNR) [facility] May 28, 2017 [id number] OBDULIO,W ILLIAM PATIENT [facility] (R) [place] (WN R) May 28, 2017 (WNR) [id number] [phone] OBDULIO,W ILLIAM PATIENT [facility] Sep 11, 2018 [id number] OBDULIO,W ILLIAM PATIENT Selected Encounter This section includes the information on record at [place] for the Encounter. Date/Time Encounter Type Encounter Description Reason Provider Source Nov 13, 2023 01:30 PM MTMS BY PHARM [facility]ERNEY 15 MIN PAIN CLINIC ICD-10-CM M54.50 Low back pain, unspecified TERI MCNAMARA IHSergey Encounter Template Text not used by [facility] Assessments - Encounter Diagnoses This section includes the primary and secondary diagnoses documented for the Encounter. Date/Time Primary/Secondary Diagnosis Diagnosis Name Provider Source Nov 13, 2023 01:52 PM PRIMARY Low back pain, unspecified TERI MCNAMARA [place] [facility] [place] [facility] Plan of Treatment: Future Appointments (+ 6 months) and Future Tests (+/- 45 days) The Plan of Treatment section includes future care activities for the patient from all [place] [facility] This section includes future appointments [...] - MEDICINE [place] [facility] [place] [facility] Dec 28, 2023 10:00 AM AMBULATORY - [place]ICINE [place] [facility] [place] [facility] Jan 11, 2024 09:00 AM AMBULATORY - MEDICINE [place] [facility] [place] [facility] Jan 14, 2024 11:00 AM AMBULATORY - REHAB MEDICIN E [place] [facility] [place] [facility] Feb 08, 2024 08:30 AM AMBULATORY - MEDICINE [place] [facility] [place] [facility] Feb 26, 2024 08:30 AM AMBULATORY - MEDICINE [place] [facility] [place] [facility] Mar 21, 2024 08:30 AM AMBULATORY - MEDICINE [place] [facility] [place] [facility] Apr 22, 2024 08:30 AM AMBULATORY - MEDICINE [place] [facility] [place] [facility] Advance Directives: All historical and [...] Source Dec 02, 2020 [facility] Encounter Notes: All associated encounter notes This section contains the clinical notes associated to the Encounter. Date/Time Encounter Note(s) Provider Source Nov 13, 2023 11:02 AM ACCOUNTING OF DISC LOSURES NOTE: LOCAL TITLE: STATE PRESCRIPTION DRUG MONITORING PROGRAM STANDARD TITLE: ACCOUNTING OF DISCLOSURES NOTE DATE OF NOTE: NOV 13, 2023@11:02:24 ENTRY DATE: NOV 13, 2023@11:02:24 AUTHOR: TERI MCNAMARA EXP COSIGNER: URGENCY: STATUS: [...] information was shared with the PDMP Appriss Brock. Prescription(s) filled outside the [facility] in the last 90 days are noted. However, they do not raise significant safety concerns and do not influence the treatment plan at this time. Fill Date ID Written Drug Qty Days Prescriber Rx # Pharmacy Refill Daily Dose * Pymt Type PEANUT [employer]ANER 10/25/2023 2 10/25/2023 Tramadol Hcl 50 Mg Tablet 15.00 3 Pe Sha [id number] [facility] ([facility] 0/0 50.00 [facility] [place] 10/24/2023 4 10/19/2023 Pregabalin 225 Mg Capsule 60.00 30 Be Zana [id number] [facility] (4904[facility] [place] 10/13/2023 2 10/13/2023 Oxycodone Hcl (Ir) 5 Mg Tablet 5.00 2 Rm Art [id number] [facility] (1604) 0/0 18.75 [facility] [place] 10/01/2023 4 09/28/2023 Pregabalin 225 Mg Capsule 60.00 30 Be Zana [id number] [facility] ([facility]04[place] 09/14/2023 3 09/14/2023 Pregabalin 200 Mg Capsule 28.00 14 Be Zana [id number] [facility] (4904) [place]/[facility] /[place] 09/07/2023 3 09/07/2023 Pregabalin 100 Mg Capsule 42.00 14 Be Zana [id number] [facility] (4904) [place]/[facility] /[place] 08/31/2023 3 08/31/2023 Pregabalin 75 Mg Capsule 42.00 14 Be Zana [id number] [facility] (4904) [place]/[facility] /[place] 08/24/2023 3 08/24/2023 Pregabalin 100 Mg Capsule 28.00 14 Be Zana [id number] [facility] (4904[place]/[facility] 07/26/2023 2 07/26/2023 Oxycodone-Acetaminophen 5-325 40.00 5 Da Kaylen [id number] [facility] (9935) 0/0 60.00 [facility] [place] 07/13/2023 2 07/13/2023 Oxycodone-Acetaminophen 5-325 40.00 3 Da Kaylen [id number] [facility] (9935) 0/0 100.00 [place] [place] 06/13/2023 2 06/12/2023 Gabapentin 600 Mg Tablet 270.00 90 [place] [id number] [facility] (8260) 0/0 [place] 03/08/2023 1 03/06/2023 Gabapentin 600 Mg Tablet 270.00 90 [place] [id number] [facility] (8260) 0/0 [place] 11/01/2022 1 07/12/2022 Gabapentin 600 Mg Tablet 270.00 90 [place] [id number] [facility] (8272) 1/ [place] 07/25/2022 2 07/12/2022 Gabapentin 600 Mg Tablet 270.00 90 [place] [id number] [facility] (8272) 0/1 [place] 05/04/2022 2 05/01/2022 Gabapentin 600 Mg Tablet 270.00 90 [place] [id number] [facility] (8272) 0/0 [place] 02/06/2022 1 02/02/2022 Gabapentin 600 Mg Tablet 270.00 90 [place] [id number] [facility] (8272) 0/0 [place] // TERI MCNAMARA CLINICAL PHARMACIST PRACTITIONER, PAIN Signed: 11/13/2023 14:23 TERI MCNAMARA [place] [facility] [place] [facility] Nov 13, 2023 10:55 AM [facility] NOTE: LOCAL TITLE: PAIN CLINIC NOTE STANDARD TITLE: PAIN MEDICINE OUTPATIENT NOTE DATE OF NOTE: NOV 13, 2023@10:55 ENTRY DATE: NOV 13, 2023@10:55:53 AUTHOR: TERI MCNAMARA EXP COSIGNER: URGENCY: STATUS: COMPLETED TEODORA Da Silva is 68 year old WHITE MALE with a history of chronic low back pain, who presents to pharmacy pain management clinic today for routine follow-up appointment. Leverett was last seen in clinic on 10/18; no changes made at that appointment. SUBJECTIVE/OBJECTIVE: TEODORA Da Silva presents to clinic today in no apparent distress. He visualized to be wearing immobilizers on b/l wrist/hands following surgical procedure on 10/24 to correct displaced fracture sustained earlier in the month of September at work. At the time of appointment, endorsed surgical areas feeling numb but not painful. He has been provided short-supply of tramadol from Non-VA surgeon which he has been using sparingly. Leverett remains out of work for the next several weeks and is in the process of filing a Worker's Compensation claim as injury occurred on work property. This process has been stressful for Leverett. Adding to the stress, Non-VA Ortho provider is concerned for damage to right shoulder which underwent rotator cuff repair in June. Non-VA Ortho provider plan on obtaining MRI per but is waiting for pins to be removed from recent surgery (anticipated the end of this month). During discussion today, Leverett reiterated his preference to reduce the number [...] PRN - Did not provide benefit per Leverett #3. Pregabalin 225mg BID (last filled: 10/21/23 for 30-days) - reports use helps but it doesn't . [...] yrs ago ALCOHOL USE: Socially when at [employer]; 1-2 beers, 1-2x per week CANNABIS [...] is the source for the followin. Hyperlipidemia ([facility] [id number]) 2. Impaired Fasting Glucose ([facility] [id number]) 3. Erectile Dysfunction ([facility] [id number]) 4. Tinnitus 5. Hearing loss 6. Exposure to Potentially Hazardous Substance ([facility] [id number]) 7. Syncope and collapse 8. Low back [...] ASSESSMENT: Mr. Mak is a 68-year-old male [place]rett with a history of chronic low back pain s/p multiple surgeries to cervical and lumbar spine. also followed by Non-VA providers for chronic pain related interventions. Presentation again today likely mix of acute and chronic pain. will continue to follow with Non-VA providers for management post-op care. Will defer medication changes at this time to allow for better assessment of benefit once acute pain has subsided. Most of today's encounter was spent providing education regarding expectations for pain management. Acknowledged Leverett's desire to minimize medication use but did spend time discussing potential use of buprenorphine (Butrans) for pain management. Education provided on different qualities of pain and as 's report is consistent with both nociceptive and neuropathic features it may require the use of an agent that can better target the nociceptive features. remained open minded to trialing use of Butrans and this will be revisited at follow-up. At the end of encounter, Leverett again voiced interest in neurosurgery assessment, which was previously discussed with prior PCP, Dr. Tolbert. Given this author's scope of practice, informed Leverett that provider would bring his case to [...] PLAN: 1. Continue pregabalin 225mg BID - Leverett will call when renewal is needed 2. Diclofenac Epolamine 1.3% patches remain available for Leverett to use PRN 3. Will review case with Pain Team in regard to Leverett's questions on neurosurgery 4. Education provided on potential use of Butrans for pain management 5. will continue to follow with Non-VA provider for post-op management F/U via F2F in 2 weeks; Pt instructed to contact clinic with any questions or concerns prior to next encounter. - Encounter Time: 30 minutes /jac/ TERI MCNAMARA CLINICAL PHARMACIST PRACTITIONER, PAIN Signed: 11/13/2023 16:05 TERI MCNAMARA [facility] [place] [facility]
--- OUTSIDE RECORDS SUMMARY | 2024-09-17 15:35 | XMS_ITS | Encounter Summary ---
Author Name [facility] [place] Address [address] [place] [address] Care Team Providers Care Supervisor [employer] Name Role Phone KRISTOPHER MAXWELL Primary Care [...] EMILY STEELE [id number] 1 May 28, 2017 [id number] [place] MAK PATIENT MEDICARE (WNR) MEDICARE (M) PART A Mar 28, 2021 PART A [id number] [place] MAK PATIENT MEDICARE (WNR) MEDICARE (M) PART B Mar 28, 2021 PART B [id number] [place] MAK PATIENT MEDICARE (WNR) MEDICARE (M) PART A Mar 28, 2021 PART A [id number] OBDULIO,W ILLIAM PATIENT MEDICARE (WNR) MEDICARE (M) PART B Mar 28, 2021 PART B [id number] [id number] [phone] OBDULIO,W ILLIAM PATIENT OPTUM RX PRESCRIPT ION RX May 28, 2022 THPRX [id number] OBDULIO,W ILLIAM PATIENT OPTUM RX PRESCRIPT ION RX May 28, 2022 THPRX [id number] [phone] OBDULIO,W ILLIAM PATIENT OPTUM RX PRESCRIPT ION RX Sep 11, 2018 THPRX [id number] OBDULIO,W ILLIAM PATIENT [facility] HEALTH PLAN [facility] E May 28, 2017 [id number] OBDULIO,W ILLIAM PATIENT [facility] May 28, 2017 [facility] [id number] OBDULIO,W ILLIAM PATIENT [facility] HEALTH PLAN(WNR) [facility] May 28, 2017 [id number] OBDULIO,W ILLIAM PATIENT [facility] (R) [place] (WN R) May 28, 2017 (WNR) [id number] [phone] OBDULIO,W ILLIAM PATIENT [facility]) [facility] Sep 11, 2018 [id number] OBDULIO,W ILLIAM PATIENT Selected Encounter This section includes the information on record at [place] for the Encounter. Date/Time Encounter Type Encounter Description Reason Provider Source Jun 30, 2024 08:30 AM OFFICE O/P [place] [facility] ICD-10-CM G89.4 Chronic pain syndrome ROGELIO LAY IHSergey Encounter Template Text not used by [facility] Assessments - Encounter Diagnoses This section includes the primary and secondary diagnoses documented for the Encounter. Date/Time Primary/Secondary Diagnosis Diagnosis Name Provider Source Jun 30, 2024 10:53 PM PRIMARY Chronic pain syndrome ROGELIO LAY [place] [facility] Jun 30, 2024 10:53 PM SECONDARY Impingement syndrome of right shoulder ROGELIO LAY [place] [facility] [place] [facility] Jun 30, 2024 10:53 PM SECONDARY Low back pain, unspecified ROGELIO LAY [place] [facility] [place] [facility] Plan of Treatment: Future Appointments (+ 6 months) and Future Tests (+/- 45 days) The Plan of Treatment section includes future care activities for the patient [facility] [place] [facility] This section includes future appointments and [...] C [facility] [place] [facility] Jul 25, 2024 08:30 AM AMBULATORY - MEDICINE [facility] [place] [facility] Aug 21, 2024 01:00 PM AMBULATORY - MEDICINE [facility] Aug 29, 2024 08:30 AM AMBULATORY - MEDICINE [facility] [place] [facility] Sep 02, 2024 09:00 AM AMBULATORY - REHAB MEDICIN E [facility] [place] [facility] Sep 03, 2024 10:30 AM AMBULATORY - MEDICINE [facility] Sep 05, 2024 02:30 PM AMBULATORY - MEDICINE [facility] [place] [facility] September 26, 2024 08:30 AM AMBULATORY - MEDICINE [facility] [place] [facility] October 15, 2024 03:00 PM AMBULATORY - NONE [facility] [place] [facility] Oct 27, 2024 11:30 AM AMBULATORY - MEDICINE [facility] [place] [facility] Nov 03, 2024 02:00 PM AMBULATORY - MEDICINE [facility] [place] [facility] Nov 25, 2024 09:00 AM AMBULATORY - REHAB MEDICIN E [facility] [place] [facility] Social History: Smoking Status (Most current) and Tobacco Use (All prior to encounter date) This section includes the most current, and the historical, smoking and tobacco- related health factors from the [place] facility where the Encounter took place. Current Smoking Status This section includes the most current smoking, or tobacco-related health factor, from the [place] facility where the Encounter took place. Date/Time Current Smoking Status Comment Facil ity Jun 30, 2024 10:30 AM VA-TOBACCO USE FOR HIPOLITO CIGARETTES [facility] Tobacco Use History This section includes a history of the smoking, or tobacco-related health factors, that were collected on or before the date of the Encounter. The data comes from the [place] facility where the Encounter took place. Date/Time Smoking Status/Tobacco Use Comment F acility Jun 30, 2024 10:30 AM VA-TOBACCO USE FOR HIPOLITO CIGARETTES [facility] Advance Directives: All historical and current Section Date Range: From patient's date of to the date document was created. This section includes ALL of a patient's completed or amended [place] Advance and Rescinded Directives. The entries below indicate that a directive exists for the patient, but an actual copy is not included with this document. The data comes from all [place] facilities. Date Advance Directives Provider Source Dec 02, 2020 ADVANCE DIRECTIVE ZAIRE CMOER [facility] Encounter Notes: All associated encounter notes This section contains the clinical notes associated to the Encounter. Date/Time Encounter Note(s) Provider Source Jun 30, 2024 10:16 AM PAIN TEAM NOTE: LOCAL TITLE: INTERDISCIPLINARY PAIN TEAM (IPT) PM&R NOTE STANDARD TITLE: PAIN TEAM NOTE DATE OF NOTE: JUN 30, 2024@10:16 ENTRY DATE: JUN 30, 2024@10:16:24 AUTHOR: ROGELIO LAY EXP COSIGNER: URGENCY: STATUS: COMPLETED TEODORA MAK is a 69 y/o RHD WHITE MALE who was seen in consultation today for chronic pain (neck, low back, shoulders and right knee paresthesia). Onset/Course: Patient has history of two lumbar spinal fusion surgeries by Dr. Patel 7-8 years ago, a cervical spine fusion (?ACDF C2-4) surgery 7-8 years ago between the two lumbar surgeries, and right RTC repair 1 year ago. RTC repair was unsuccessful, as was the post surgical cortisone injection. there are plans of possible total reverse shoulder replacement by Ortho, per patient. History of right total knee replacement with current issues of tingling around the knee - planned for possible RFA. Trauma/inciting events: 20 years history of minor injuries banging his back on hatches and working in awkward positions while in the [employer]. Quality/associated symptoms: nagging, sore, painful , intermittently sharp pain in the areas affected. Aggravating factors: it's there all the time - doesn't increase with prolonged sitting, standing, lifting, ect. Alleviating factors: recliner (best position), sleeping on a wedge pillow Severity: 7-8/10 on average Timing: constant all day Medications/Therapy/Interve ntions history: - Prior back injections prior to surgery. - Recent shoulder injection post surgery. - Planned RFA for right knee. - [facility] PT, last engaged 8-9 years ago. - heat prn - Topical gel - Stretching - TENS - prior use for all the different areas was ineffective - Chiro and acupuncture - previously - Pain medications are in chart and being managed by pain MD and pharmacist. Systemic/Other symptoms: Denies fever, chills, night sweats, weight loss, saddle paresthesia, or bowel/bladder incontinence. Patient was recommended SCS by Dr. Otero, but the trial lead was not covered by private insurance 6-8 years ago. SCS trial was not pursued and he was told by [facility] there was nothing else they could do for him. PMHx as obtained from Chart: Active problems - Computerized Problem List is the source for the followin. Impingement syndrome of right shoulder region 2. Hyperlipidemia ([facility] [id number]) 3. Impaired Fasting Glucose ([facility] [id number]) 4. Erectile Dysfunction ([facility] [id number]) 5. Tinnitus 6. Hearing loss 7. Exposure to Potentially Hazardous Substance ([facility] [id number]) 8. Syncope and collapse 9. Low back pain 10. Tinea 11. Retinitis pigmentosa 12. Ulnar neuritis 13. Hx of abnormal EKG w left axis deviation 03/10/11 14. Deep venous thrombosis of lower extremity 15. 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 History of bypass of stomach 18. arthritis bilateral shoulders 19. multiple surgeries 20. BPH 21. Morbid obesity 22. History of tobacco use PSxHx: two lumbar fusion surgeries, a cervical fusion surgery, a right RTC repair, and right total knee replacement Fam Hx: Maternal grandfather: CVA. Paternal grandmother and mother: cancer (strong family history of cancer on this side of the family.) Uncle just passed from [place]. Very little is known of his paternal side as he when vet was 3-4 due to a rere accident. 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 Quit a long time ago. [+] Alcohol: social [-] Marijuana [-] Illicit drug including IVD MARITAL STATUS - [employer] FROM Jun TO Jun Service Connected Disabilities with % Eligibility: SERVICE CONNECTED 50% to 100% VERIFIED Total S/C %: 80 DIVERTICULITIS, A BOWEL CONDITION 0%S/C LUMBOSACRAL OR CERVICAL STRAIN 20%S/C BACK STRAIN 0%S/C SUPERFICIAL SCARS 10%S/C PARALYSIS OF MEDIAN NERVE 10%S/C NEUROSIS, DYSTHYMIC DISORD 10%S/C NEURALGIA OF SCIATIC NERVE 20%S/C TINNITUS 10%S/C PARALYSIS OF MEDIAN NERVE 10%S/C 2ND DEGREE SCHROEDER 0%S/C PARALYSIS OF SCIATIC NERVE 20%S/C LIMITED MOTION OF ANKLE 10%S/C ALL: DIPHENHYDRAMINE MEDS: Active Outpatient Medications (including Supplies): ASPIRIN 81MG EC TAB TAKE ONE TABLET BY MOUTH ONCE DAILY TO ACTIVE PREVENT STROKE/HEART ATTACK Indication: CARDIOPROTECTION BUPRENORPHINE 300MCG BUCCAL FILM PLACE ONE FILM BETWEEN ACTIVE CHEEK AND GUM UNTIL DISSOLVED EVERY 12 HOURS Indication: FOR PAIN DICLOFENAC EPOLAMINE 1.3% PATCH APPLY 1 PATCH TO SKIN ACTIVE TWICE DAILY NEEDED FOR PAIN Indication: FOR PAIN NALOXONE HCL 4MG/SPRAY SOLN NASAL SPRAY INSTILL 1 SPRAY ACTIVE ONE NOSTRIL ONE TIME NEEDED CALL 911 WITH ADMINISTRATION. REPEAT WITH SECOND DEVICE IF SYMPTOMS RETURN Indication: FOR OPIOID OVERDOSE PREGABALIN 225MG ORAL CAP TAKE ONE CAPSULE BY MOUTH TWICE ACTIVE (S) DAILY FOR PAIN Non-VA ACETAMINOPHEN 325MG TAB 1300MG BY MOUTH THREE TIMES ACTIVE DAILY NEEDED Non-VA ALFUZOSIN HCL 10MG SA TAB 10MG BY MOUTH DAILY ACTIVE Non-VA TADALAFIL 5MG TAB 5MG BY MOUTH DAILY ACTIVE 8 Total Medications ROS: Constitutional - Denies fever or chills, night sweats, or unexplained weight loss. Head/Eyes/Ears/Neck- Denies headaches, dizziness, visual changes. Cardiovascular - Denies chest pain/palpitations, lower extremity swelling. Respiratory - Denies shortness of breath, or cough. GI - Denies nausea, vomiting, or loss of bowel fx/control. - Denies urinary difficulties or loss of bladder function. Musculoskeletal - See HPI. Neuro - See HPI. Skin/integuments - Denies rashes, lesions, or skin breakdown in the extremities. All other systems reviewed and are negative. PHYSICAL EXAMINATION: GEN: WD, WN. Awake, alert, cooperative with exam. In NAD. PSYCH: Good eye contact. Good mood. Appropriately concerned. CVS: Extremities warm/well perfused. No lower extremity edema appreciated. PULM: Breathing unlabored, no accessory muscle use. ABD: Nondistended. Obese. EXTREMITIES: No cyanosis or edema of bilateral upper and lower extremities. SKIN: No rashes, lesions, or skin breakdown over exposed areas. MUSCULOSKELETAL EXAM: Nonideal posture, shoulders protracted, decreased core strength. Stands and seated with slight forward hunch. Cervical/UEs Good cervical ROM in all planes tested with slight restriction in SB b/l and discomfort on left SB. Cervical PSM hypertonicity with TTP right C3-5. Negative Spurling's bilaterally. Negative facet loading bilaterally. Negative axial compression. Upper extremities No erythema, edema or increased warmth of bilateral shoulders. Active and passive left shoulder ROM is WNL in flexion, extension, internal and external rotation, adduction and abduction. Active right shoulder ROM is decreased in flexion and abduction, but can passively stretch to about 160 degrees. Shoulder pain on right empty can and resisted external rotation. Additional tests per Dr. Cespedes's IPT PT note from today. Thoracic/Lumbar Thoracic and lumbar PSM with hypertonicity. TTP of lumbar PSMs and spinous processes as well as interspinous ligaments from L3-S1. Significantly decreased ROM of the lumbar spine in all planes tested, with flexion only to 5-10 degrees, extension barely past neutral, and rotation to 5-10 degress. + pelvic obliquity. + facet loading bilaterally, right>>left, localized to the lower lumbar region. Negative Anastacio's sign, but positive ANNA's bilaterally. Dynamic SLR also elicited pain in the low back, though not localized to SI joint. No tenderness to palpation of the SI joints, PSIS, ASIS, greater trochanter, gluteus musculature, or sciatic notch. Negative femoral stretch test, log roll, Scour b/l Tight hamstrings, and hip flexors. Lower extremities Able to perform a modified squat with pain reported in the right knee. No hip pain with active ROM testing, but motions elicited low back pain. No TTP b/l GT. Weakness of hip flexors but at least antigravity, and significant weakness of hip abductors which are less than antigravity, reportedly due to pain (partially). Otherwise, remainder of major mm. tested in the lower extremities are 5/5 in strength. NEURO: AAO x3. Able to ambulate on heels and toes. No foot drop during ambulation. + trendelenburg. Negative straight leg raise test bilaterally. Negative Chapin's bilaterally. Able to maintain attention to conversation and follow directions on exam Labs: Reviewed in chart. Diagnostic Studies: none available to view ASSESSMENT/PLAN: Patient is a 69 yo male with chronic pain, multifactorial including failed back syndrome, cervical spondylosis and right RTC pathology. There are areas of significant MSK imbalance as per exam above. Refer to Consult Report/Interdisciplinary Pain Team note for our team's comprehensive recommendations. In addition, I explained at length with patient his condition and addressed his questions. Encouraged patient to consider gentle movement based exercises such as Mike Chi or Qi Gong, even yoga if he is interested. If pain management is not satisfactory after the interventions suggested, x-rays will be ordered for further assessment and for consideration of spinal injection. FOLLOW-UP: 4 months Potential risks and side effects of any medication(s) prescribed today was reviewed with . Patient's questions were answered to the best of my ability and to patient's apparent satisfaction. Vet expressed understanding and agreement with above plan. MDM: 90 minutes which includes reviewing records, evaluating patient, documenting in medical record, educating, counseling and coordinating care. Thank you for allowing me to participate in this patient's care. Please call with any questions/concerns. This note is created with the assistance of The [employer] Speech Recognition software and may include typographical or grammatical errors or unintentional word/phrase substitutions. Medication Reconciliation: Outpatient: Has the patient been taking pain medications as documented in the EMLR? YES: [...] with a VA or non-VA provider. /jac/ ROGELIO LAY DO [employer]INGS Signed: 06/30/2024 22:53 ROGELIO LAY [facility]
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
--- OUTSIDE RECORDS SUMMARY | 2024-09-17 15:35 | XMS_ITS | Clinical Summary ---
Author Organization [facility] Address [address] [place] [address] Care Team Providers Care Chip Bin Operator Name Role Phone Gudelia Lynne MD Primary Care Provider [phone] Allergies Active Allergy Reactions Criticality Noted Date [...] age to complete this topic Care Teams Chip Bin Operator Relationship Specialty Start Date End Date Gudelia Lynne MD PCP - General Internal Medicine 09/09/20
--- OUTSIDE RECORDS SUMMARY | 2024-09-17 15:36 | XMS_ITS | Encounter Summary ---
Author Name [facility] [facility] [place] Address [address] [place] [address] Care Team Providers Care Cleaners Name Role Phone KRISTOPHER MAXWELL [facility] Insurance Providers: All historical and current [...] EMILY STEELE [id number] 1 May 28, 2017 [id number] [place] MAK PATIENT MEDICARE (WNR) MEDICARE (M) PART A Mar 28, 2021 PART A [id number] [phone] [place] MAK PATIENT MEDICARE (WNR) MEDICARE (M) PART B Mar 28, 2021 PART B [id number] [place] MAK PATIENT MEDICARE (WNR) MEDICARE (M) PART A Mar 28, 2021 PART A [id number] OBDULIO,W ILLIAM PATIENT MEDICARE (WNR) MEDICARE (M) PART B Mar 28, 2021 PART B [id number] [phone] OBDULIO,W ILLIAM PATIENT OPTUM RX PRESCRIPT ION RX May 28, 2022 THPRX [id number] OBDULIO,W ILLIAM PATIENT OPTUM RX PRESCRIPT ION RX May 28, 2022 THPRX [id number] [phone] OBDULIO,W ILLIAM PATIENT OPTUM RX PRESCRIPT ION RX Sep 11, 2018 THPRX [id number] OBDULIO,W ILLIAM PATIENT [facility] 2017 [id number] [phone] OBDULIO,W ILLIAM PATIENT [facility] May 28, 2017 [facility] [id number] OBDULIO,W ILLIAM PATIENT [facility](WNR) [facility] May 28, 2017 [id number] [phone] OBDULIO,W ILLIAM PATIENT [facility] (R) [place] (WN R) May 28, 2017 (R) [id number] [phone] OBDULIOW ILLIAM PATIENT [facility] Sep 11, 2018 [id number] OBDULIO,W ILLIAM PATIENT Selected Encounter This section includes the information on record at [place] for the Encounter. Date/Time Encounter Type Encounter Description Reason Provider Source Jun 05, 2024 10:00 AM OFFICE O/P EST HI 40 MIN PAIN CLINIC ICD-10-CM M54.50 Low back pain, unspecified ARIS CHU Encounter Template Text not used by [place] Assessments - Encounter Diagnoses This section includes the primary and secondary diagnoses documented for the Encounter. Date/Time Primary/Secondary Diagnosis Diagnosis Name Provider Source Jun 05, 2024 01:27 PM PRIMARY Low back pain, unspecified ARIS CHU [place] [facility] [place] [facility] Jun 05, 2024 01:27 PM SECONDARY Chronic pain syndrome ARIS CHU [place] [facility] [place] [facility] Jun 05, 2024 01:27 PM SECONDARY Impingement syndrome of right shoulder ARIS CHU [place] [facility] [place] [facility] Plan of Treatment: Future Appointments (+ 6 months) and Future Tests (+/- 45 days) The Plan of Treatment section includes future care activities for the patient from all [place] [facility]. This section includes future appointments and future orders which are active, pending or scheduled. Future Appointments This section includes appointments that were scheduled to occur 6 months from the date of the Encounter, up to a maximum of 20 appointments. The data comes from all [place] treatment facilities. Appointment Date/Time Appointment Type Appointme nt Facility Name Jun 27, 2024 08:30 AM AMBULATORY [facility] MEDICINE [facility] [place] [facility] Jun 30, 2024 08:30 AM AMBULATORY [facility] MEDICINE [facility] [place] [facility] Jun 30, 2024 09:30 AM AMBULATORY - MEDICINE [facility] [place] [facility] Jun 30, 2024 10:30 AM AMBULATORY - MEDICINE [facility] [place] [facility] Jul 08, 2024 10:00 AM AMBULATORY - MEDICINE [facility] [place] [facility] Jul 25, 2024 08:30 AM AMBULATORY - MEDICINE [facility] [place] [facility] Aug 21, 2024 01:00 PM [facility]ULATORY - MEDICINE [facility] Aug 29, 2024 08:30 AM AMBULATORY - MEDICINE [facility] [place] [facility] Sep 02, 2024 09:00 AM AMBULATORY - REHAB MEDICIN E [facility] [place] [facility] Sep 03, 2024 10:30 AM AM[facility]ULATORY - MEDICINE [facility] Sep 05, 2024 02:30 PM AMBULATORY - MEDICINE [facility] [place] [facility] September 26, 2024 08:30 AM AMBULATORY - MEDICINE [facility] [place] [facility] October 15, 2024 03:00 PM AMBULATORY - NONE [facility] [place] [facility] Oct 27, 2024 11:30 AM [facility] [place] [facility] Nov 03, 2024 02:00 PM [facility] [place] [facility] Nov 25, 2024 09:00 AM [facility] Advance Directives: All historical and current Section Date Range: From patient's date of to the date document was created. This section includes ALL of a patient's completed or amended VA Advance and Rescinded Directives. The entries below indicate that a directive exists for the patient, but an actual copy is not included with this document. The data comes from all [place] facilities. Date Advance Directives Provider Source Dec 02, 2020 ADVANCE DIRECTIVE ZAIRE COMER DEV IE Encounter Notes: All associated encounter notes This section contains the clinical notes associated to the Encounter. Date/Time Encounter Note(s) Provider Source Jun 12, 2024 09:50 AM ACCOUNTING OF DISCLOSURES NOTE: LOCAL TITLE: STATE PRESCRIPTION DRUG MONITORING PROGRAM STANDARD TITLE: ACCOUNTING OF DISCLOSURES NOTE DATE OF NOTE: JUN 12, 2024@09:50:49 ENTRY DATE: JUN 12, 2024@09:50:49 AUTHOR: ARIS CHU EXP COSIGNER: URGENCY: STATUS: COMPLETED This PDMP query was submitted by Aris Chu MD. The clinical justification for this PDMP query is to review controlled substances prescribed outside of the [facility], and any additional information that may become available, as an important component of standard clinical care, and in accordance with [facility] policy. Patient information was shared with the PDMP Appriss [place]. No prescription(s) for controlled substances outside the [facility] were found in the last 90 days. /jac/ Aris Chu MD STAFF PHYSICIAN Signed: 06/12/2024 09:50 ARIS CHU [place] [facility] [place] [facility] Jun 05, 2024 09:46 AM PAIN MEDICINE OUTPATIENT NOTE: LOCAL TITLE: PAIN CLINIC NOTE STANDARD TITLE: PAIN MEDICINE OUTPATIENT NOTE DATE OF NOTE: JUN 05, 2024@09:46 ENTRY DATE: JUN 05, 2024@09:46:55 AUTHOR: ARIS CHU EXP COSIGNER: URGENCY: STATUS: COMPLETED Patient seen for initial pain clinic evaluation by me; he had previously been seen by pain team pharmacist. 75 minutes time spent for interpersonal patient visit, chart review, documentation, patient education, and care coordination. PMH: Active problems - Computerized Problem List is the source for the followin. Hyperlipidemia ([facility] [id number]) 2. Impaired Fasting Glucose ([facility] [id number]) 3. Erectile Dysfunction ([facility] [id number]) 4. Tinnitus 5. Hearing loss 6. Exposure to Potentially Hazardous Substance ([facility] [id number]) ARSENIO screen 02/13/2023 Asbestos and noise 7. [...] Specialists: Dr. Philip (ortho); Dr. Wolf (GI); Conference Services Director at [facility] PAIN HISTORY: LOCATION(S): both sides of low back sacral area. radiates to groin bilat radiates diffusely into thighs right side of neck and shoulder; he was told he would need a rotator cuff repair (he had a recent shoulder MRI at [facility]) right knee acts up at times, not a signficant bother ONSET AND COURSE: Pain issues started in the [place]. When coming out of a [employer] he would often strike his back and his neck. sometimes had to work in awkward positions. Had some falls. He sought care at times and got treated with ibuprofen. No other treatment. After discharge from [place] he got some [facility] care for low back issues, but he did not follow through with much care. He notes that the VA reputation was not good back then in the 1989's. In 2012 he started to interact with [...] step-father. Has 5 younger half siblings. HISTORY: [employer] 07/07/1974 TO 07/25/1994 E[employer]. 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 Then returned to an [employer] where he has worked for 17 years. [...] my limits. He drank heavily in the [place]. Marijuana: none No illicit drug use. DIET: [...] most significant pain. ASSESSMENT: 69 year old [place] who is 70% service connected for issues of lumbar spine, carpal tunnel and hearing. He drank heavily in the [place] but now has rare moderate amounts of alcohol. He does not use tobacco or marijuana. He works for an [employer] for the past 15 years and has no plans to retire. He is twice and lives in [place] with his 3rd of 24 years and his step- daughter and 2 grandchildren. His has advanced Alzheimers and the family works together to care for her. He started with back pain issues during his 20 years in the [place] related to minor injuries banging his back on hatches and working in awkward positions. After service he sought care outside the [facility] and was treated for arthritic issues of the right knee and left ankle as well as low back and neck pain issues. He had arthroscopic surgery on the left ankle in the s, and had left knee TKR in 2015 [...] can be on a prn basis. /jac/ Aris Chu MD STAFF PHYSICIAN Signed: 06/05/2024 13:27 Receipt Acknowledged By: 06/06/2024 08:09 /jac/ HEMAL MCNAMARA CLINICAL PHARMACIST PRACTITIONER, ARIS CHANDLER [place] [facility]
--- OUTSIDE RECORDS SUMMARY | 2024-09-17 15:36 | XMS_ITS | Encounter Summary ---
Author Name [facility] [place] Address [address] [place] [id number] Care Team Providers Care Assembler 1St Shift Name Role Phone KRISTOPHER MAXWELL Primary Care [...] EMILY STEELE [id number] May 28, 2017 [id number] [place] MAK PATIENT MEDICARE (WNR) MEDICARE (M) PART A Mar 28, 2021 PART A [id number] [place] MAK PATIENT MEDICARE (WNR) MEDICARE (M) PART B Mar 28, 2021 PART B [id number] QV20 [place]on MAK PATIENT MEDICARE (WNR) MEDICARE (M) PART A Mar 28, 2021 PART A [id number] QV20 Weston MAKM PATIENT MEDICARE (WNR) MEDICARE (M) PART B Mar 28, 2021 PART B [id number] QV20 OBDULIO,W ILLTAINAM PATIENT OPTUM RX PRESCRIPT ION RX May 28, 2022 THPRX [id number] [phone] OBDULIO,W ILLIAM PATIENT OPTUM RX PRESCRIPT ION RX May 28, 2022 THPRX [id number] [phone] OBDULIO,W ILLIAM PATIENT OPTUM RX PRESCRIPT ION RX Sep 11, 2018 THPRX [id number] OBDULIO,W ILLIAM PATIENT [facility] May [facility], 2017 [id number] OBDULIO,W ILLIAM PATIENT [facility] May 28, 2017 [facility] [id number] OBDULIO,W ILLIAM PATIENT [facility] PLAN(WNR) [facility] RAFAEL May 28, 2017 [id number] [phone] OBDULIO,W ILLIAM PATIENT [facility] (WNR) [facility](WN R) May 28, 2017 (WNR) [id number] OBDULIO,W ILLIAM PATIENT [facility] Sep 11, 2018 [id number] [phone] OBDULIO,W ILLIAM PATIENT Selected Encounter This section includes the information on record at [place] for the Encounter. Date/Time Encounter Type Encounter Description Reason Provider Source Sep 05, 2024 02:30 PM MTMS BY PHARM ADDL 15 MIN CLINICAL PHARMACY ICD-10-CM E66.9 Obesity, unspecified ADRIANNA,NINA E Encounter Template Text not used by [place] Assessments - Encounter Diagnoses This section includes the primary and secondary diagnoses documented for the Encounter. Date/Time Primary/Secondary Diagnosis Diagnosis Name Provider Source Sep 05, 2024 02:55 PM PRIMARY Obesity, unspecified ADRIANNA,NINA [facility] Plan of Treatment: Future Appointments (+ 6 months) and Future Tests (+/- 45 days) The Plan of Treatment section includes future care activities for the patient from all [place] [facility]. This section includes future appointments and future orders which are active, pending or scheduled. Future Appointments This section includes appointments that were scheduled to occur 6 months from the date of the Encounter, up to a maximum of 20 appointments. The data comes from all [place] treatment facilities. Appointment Date/Time Appointment Type Appointme nt Facility Name September 26, 2024 08:30 AM [facility] [place] [facility] October 15, 2024 03:00 PM [facility]BUL[facility] - NONE [facility] Oct 27, 2024 11:30 AM [facility] [place]ICINE [place] [facility] [place] [facility] Nov 03, 2024 02:00 PM AMBULATORY - MEDICINE [place] [facility] [place] [facility] Nov 25, 2024 09:00 AM AMBULATORY - [facility] Jan 14, 2025 10:30 AM [facility] Active, Pending, and Scheduled Orders This section includes a listing of several types of active, pending, and scheduled orders, including clinic medications orders, diagnostic test orders, procedure orders and consult orders; where the start date of the order is 45 days before the date of the Encounter or 45 days after the date of theEncounter. The data comes from all [place] treatment [facility]. Test Date/Time Test Type Test Details Facility Name Aug 21, 2024 01:34 PM Consult Order TELE-EYE S CREENING CONSULT/SPOPC (OUTPT) Cons [employer] Finance Manager's Choice [facility] Sep 05, 2024 02:57 PM Consult Order L2 CONSULT (LOW ACUITY/INTENSITY TELEHEALTH) Cons Automotive Finance Manager's Choice [facility] Lab Results: +/- 30 days of [...] Type Comment Aug 21, 2024 01:32 PM [facility] TSH SERUM Specimen Type: SERUM No comment entered. Ordering Provider: KRISTOPHER MAXWELL Report Released Date/Time: Aug 19, 2024 09:44 AM Reporting Lab: [address] [address] Performing Lab: [address] [address] TSH 0.55 u[IU]/mL 0.35-5.00 Aug 21, 2024 01:32 PM [facility] BASIC METABOLIC PANEL (non-fasting) SERUM Specimen Type: SERUM No comment entered. Ordering Provider: KRISTOPHER MAXWELL Report Released Date/Time: Aug 19, 2024 09:44 AM Reporting Lab: [address] [address] Performing Lab: [address] [address] UREA NITROGEN 8 mg/dL 7-25 GLUCOSE 80 mg/dL 65-100 SODIUM 136 mmol/L 135-145 POTASSIUM 3.8 mmol/L 3.5-5.0 CHLORIDE 107 mmol/L 100-110 CO2 21 meq/L 20-30 CALCIUM 8.3 mg/dL L 8.5-10.2 CREATININE, Serum 0.77 mg/dL 0.50-1.40 eGFR(CKD-EPI 2020) >90 mL/min >60 Aug 21, 2024 01:32 PM [facility] LIPID PANEL, NON FASTING SERUM Specim en Type: SERUM No comment entered. Ordering Provider: KRISTOPHER MAXWELL Report Released Date/Time: Aug 19, 2024 09:44 AM Reporting Lab: [address] [address] Performing Lab: [address] [address] CHOLESTEROL 173 mg/dL TRIGLYCERIDE 100 mg/dL 0-150 LDL calculated 90 mg/dL 0-129 CHOL/HDL 2.7 HDL CHOLESTEROL 63 mg/dL H 40-60 Aug 21, 2024 01:32 PM [facility] LIVER FUNCTION SERUM Specimen Type: SERUM No comment entered. Ordering Provider: KRISTOPHER MAXWELL Report Released Date/Time: Aug 19, 2024 09:44 AM Reporting Lab: [address] [address] Performing Lab: [address] [address] PROTEIN,TOTAL 7.0 g/dL 6.0-8.3 ALBUMIN 3.7 g/dL 3.5-5.0 ALKALINE PHOSPHATASE 73 U/L 40-150 AST 17 U/L 5-34 ALT 16 U/L BILIRUBIN, TOTAL 0.5 mg/dL 0.2-1.2 Aug 21, 2024 01:32 PM [facility] HEMOGLOBIN A1C PANEL BLOOD Specimen T ype: [...] Aug 19, 2024 09:44 AM Reporting Lab: [address] [address] Performing Lab: [address] [address] HEMOGLOBIN A1C 5.6 4.0-5.6 Aug 21, 2024 01:32 PM [facility] CBC AND DIFF (AUTO) BLOOD Specimen Ty pe: BLOOD No comment entered. Ordering Provider: KRISTOPHER MAXWELL Report Released Date/Time: Aug 19, 2024 09:44 AM Reporting Lab: [address] [address] Performing Lab: [address] [address] WBC 7.57 10*3/uL 4.50-11.00 RBC 4.38 10*6/uL [...] 10*3/uL 0.00-0.00 Aug 21, 2024 01:32 PM [facility] PSA SERUM Sp ecimen Type: SERUM No comment entered. Ordering Provider: KRISTOPHER MAXWELL Report Released Date/Time: Aug 21, 2024 01:04 PM Reporting [facility] [address] [address] Performing Lab: [facility] [address] [address] PSA 0.63 ng/mL 0.00-4.00 Social History: Smoking Status (Most current) and Tobacco Use (All prior to encounter date) This section includes the most current, and the historical, smoking and tobacco- related health factors from the [place] facility where the Encounter took place. Current Smoking Status This section includes the most current smoking, or tobacco-related health factor, from the [place] facility where the Encounter took place. Date/Time Current Smoking Status Comment Facil izaiah Nov 01, 2022 09:00 AM [place]-TOBACCO FORMER USER [facility] Tobacco Use History This section includes a history of the smoking, or tobacco-related health factors, that were collected on or before the date of the Encounter. The data comes from the [place] facility where the Encounter took place. Date/Time Smoking Status/Tobacco Use Comment F acility Nov 01, 2022 09:00 AM VA-TOBACCO QUIT 15 YRS OR MORE [facility] Nov 03, 2021 02:00 PM VA-TOBACCO NEVER USED [facility] October 19, 2020 09:00 AM VA-TOBACCO FORMER USER [facility] October 19, 2020 09:00 AM VA-TOBACCO QUIT 15 YRS OR MORE [facility] Aug 16, 2018 12:32 PM VA-TOBACCO NEVER USED [facility] Aug 16, 2017 02:32 PM QUIT TOBACCO USE > 7 YEARS AGO stopped smoking over 25 years ago [facility] Aug 15, 2016 09:59 AM QUIT TOBACCO USE > 7 YEARS AGO quit 25 years ago [facility] Aug 13, 2015 02:47 PM QUIT TOBACCO USE > 7 YEARS AGO smoked cig, ~20/day, quit 20 yrs ago [facility] Aug 10, 2014 01:28 PM QUIT TOBACCO USE > 7 YEARS AGO quit 20+ yrs ago [facility] Advance Directives: All historical and current Section [...] Dec 02, 2020 ADVANCE DIRECTIVE ZAIRE COMER [facility] IE Encounter Notes: All associated encounter notes This section contains the clinical notes associated to the Encounter. Date/Time Encounter Note(s) Provider Source Sep 05, 2024 02:56 PM ADDENDUM: LOCAL TITLE: Addendum STANDARD TITLE: ADDENDUM DATE OF NOTE: SEP 05, 2024@14:56 ENTRY DATE: SEP 05, 2024@14:56:02 AUTHOR: NINA CHO EXP COSIGNER: URGENCY: STATUS: COMPLETED Will ask MSA to please schedule patient for: [X] SPR VVC PHARM PACT 1 RTC order placed. Appointent Length: 30 minutes. Thank you! /jac/ Nina Cho PharmD Clinical Pharmacy Practitioner Signed: 09/05/2024 14:56 Receipt Acknowledged By: 09/09/2024 13:05 /jac/ LISA MAGANA ADVANCE ZIPPER SETTER CHAINSTITCH == --- Original Document --- 09/05/24 CONSULT REPORT/PHARMACY: TEODORA MAK is a 69 yo MALE referred to pharmacy clinic for weight management. HPI: S: referred to pharmacy clinic for weight management. He notes he is s/p gastric bypass ~2004; lost a lot of weight following that but lost his job, became sedentary and gained weight; has not been able to lose it. Followed by pain management clinic. BP: 114/72 (08/21/2024 13:27) HR: 86 (08/21/2024 13:27) HT: 72 in [182.9 cm] (11/01/2022 09:14) WT: 285.2 lb [129.36 kg] (08/21/2024 13:27) BMI: BMI: 38.8 Diet: B: SEC sandwich or oatmeal L: varies; leftovers or chicken sandwich from [employer] D: varies; dtr cooks or gets take out Snacks: tries to avoid candy/snacks, but hard around Spring; popcorn, chips (handful/small bag) Drinks: diet caffeine free soda, celcius, water Social: Alcohol: social; 1-2 drinks if out Tobacco: denies Exercise: Walks a lot Active problems - Computerized Problem List is the source for the followin. Impingement syndrome of right shoulder region 2. Hyperlipidemia ([facility] [id number]) 3. Impaired Fasting Glucose ([facility] [id number]) 4. Erectile Dysfunction ([facility] [id number]) 5. Tinnitus 6. Hearing loss 7. Exposure to Potentially Hazardous Substance ([facility] [id number]) 8. Syncope and collapse 9. Low back [...] Morbid obesity 22. History of tobacco use Other: Denies personal or fhx thyroid cancer or MENS2 Denies hx pancreatitis Active Outpatient Medications (including Supplies): Active Outpatient Medications Status == 1) ASPIRIN 81MG EC TAB TAKE ONE TABLET BY MOUTH ONCE DAILY TO ACTIVE PREVENT STROKE/HEART ATTACK Indication: CARDIOPROTECTION 2) BUPRENORPHINE 300MCG BUCCAL FILM PLACE ONE FILM BETWEEN ACTIVE CHEEK AND GUM UNTIL DISSOLVED EVERY 12 HOURS Indication: FOR PAIN 3) DICLOFENAC (EQV-FLECTOR) 1.3% PATCH APPLY 1 PATCH TO SKIN ACTIVE TWICE DAILY NEEDED FOR PAIN Indication: FOR PAIN 4) PREGABALIN 300MG ORAL CAP TAKE ONE CAPSULE BY MOUTH TWICE ACTIVE DAILY Indication: FOR PAIN Active Non-VA Medications Status == 1) Non-VA ACETAMINOPHEN 325MG TAB 1300MG BY MOUTH THREE TIMES ACTIVE DAILY NEEDED 2) Non-VA ALFUZOSIN HCL 10MG SA TAB 10MG BY MOUTH DAILY ACTIVE 3) Non-VA TADALAFIL 5MG TAB 5MG BY MOUTH DAILY ACTIVE Pertinent Labs: HEMOGLOBIN A1C TREND Collection DT Spec HGBA1c 08/21/2024 13:32 BLOOD 5.6 11/01/2022 09:45 BLOOD 5.4 LIPID PANEL TREND Collection DT Spec CHOL HDL CHO/HDL LDL-c TRIG 08/21/2024 13:32 SERUM 173 63 H 2.7 90 100 11/01/2022 09:45 SERUM 207 H 70 H 3.0 117 99 08/13/2015 14:04 SERUM 191 60 3.2 111 98 CREATININE-EGFR 08/21/24 13:32 0.77 A/P: LSMs reviewed and encouraged. Pt agrees to MOVE program; prefers L2 self-guided program. Discussed pharmacologic options: Orlistat: limited potential for weight loss; r/o GI ADRs: Qysmia: consider Contrave: avoid d/t buprenorphine GLP-1 agonist: has 3 weight related comorbidities; however, BMI <40 so does not meet [place] Scarce Resource Allocation guidelines at [place] [facility] Will f/u in 8 weeks review MOVE program and discuss medication options. Follow-up: 8 weeks Time Spent: 30 minutes Suicide Screen: C-SSRS Screening [place]-Suicide Severity Rating Scale (C-SSRS Screener) 1. Over [...] required due to responses to other questions. PBM PharmD Pharmacotherapy Rem V12: PHARMACIST INTERVENTIONS: OBESITY/WEIGHT MANAGEMENT Medication monitoring, no dosage change required, continue to monitor and assess Medication reconciliation (changes to active VA and non-VA medication lists to reconcile differences) No changes to medication lists made (medication review completed, no discrepancies identified) /jac/ Nina Cho PharmD Clinical Pharmacy Practitioner Signed: 09/05/2024 14:55 09/09/2024 ADDENDUM STATUS: COMPLETED THIS BENEFITS ANALYST WAS UNABLE TO REACH LMOM 09/05/24 LMOM 09/08/24 TROUBLE REACHING VET 09/08/24 /jac/ LISA MAGANA ADVANCE ZIPPER SETTER CHAINSTITCH Signed: 09/09/2024 13:03 NINA CHO Sep 05, 2024 02:15 PM PHARMACY CONSULT: LOCAL TITLE: CONSULT REPORT/PHARMACY STANDARD TITLE: PHARMACY CONSULT DATE OF NOTE: SEP 05, 2024@14:15 ENTRY DATE: SEP 05, 2024@14:15:36 AUTHOR: NINA CHO EXP COSIGNER: URGENCY: STATUS: COMPLETED CONSULT REPORT/PHARMACY Has ADDENDA OBDULIOTEODORA SNOW is a 69 yo MALE referred to pharmacy clinic for weight management. HPI: S: referred to pharmacy clinic for weight management. He notes he is s/p gastric bypass ~2004; lost a lot of weight following that but lost his job, became sedentary and gained weight; has not been able to lose it. Followed by pain management clinic. BP: 114/72 (08/21/2024 13:27) HR: 86 (08/21/2024 13:27) HT: 72 in [182.9 cm] (11/01/2022 09:14) WT: 285.2 lb [129.36 kg] (08/21/2024 13:27) BMI: BMI: 38.8 Diet: B: SEC sandwich or oatmeal L: varies; leftovers or chicken sandwich from [employer] D: varies; dtr cooks or gets take out Snacks: tries to avoid candy/snacks, but hard around Spring; popcorn, chips (handful/small bag) Drinks: diet caffeine free soda, celcius, water Social: Alcohol: social; 1-2 drinks if out Tobacco: denies Exercise: Walks a lot Active problems - Computerized Problem List is the source for the followin. Impingement syndrome of right shoulder region 2. Hyperlipidemia ([facility] [id number]) 3. Impaired Fasting Glucose ([facility] 630780792) 4. Erectile Dysfunction ([facility] 915264137) 5. Tinnitus 6. Hearing loss 7. Exposure to Potentially Hazardous Substance ([facility] [id number]) 8. Syncope and collapse 9. Low back [...] Morbid obesity 22. History of tobacco use Other: Denies personal or fhx thyroid cancer or MENS2 Denies hx pancreatitis Active Outpatient Medications (including Supplies): Active Outpatient Medications Status == 1) ASPIRIN 81MG EC TAB TAKE ONE TABLET BY MOUTH ONCE DAILY TO ACTIVE PREVENT STROKE/HEART ATTACK Indication: CARDIOPROTECTION 2) BUPRENORPHINE 300MCG BUCCAL FILM PLACE ONE FILM BETWEEN ACTIVE CHEEK AND GUM UNTIL DISSOLVED EVERY 12 HOURS Indication: FOR PAIN 3) DICLOFENAC (EQV-FLECTOR) 1.3% PATCH APPLY 1 PATCH TO SKIN ACTIVE TWICE DAILY NEEDED FOR PAIN Indication: FOR PAIN 4) PREGABALIN 300MG ORAL CAP TAKE ONE CAPSULE BY MOUTH TWICE ACTIVE DAILY Indication: FOR PAIN Active Non-VA Medications Status == 1) Non-VA ACETAMINOPHEN 325MG TAB 1300MG BY MOUTH THREE TIMES ACTIVE DAILY NEEDED 2) Non-VA ALFUZOSIN HCL 10MG SA TAB 10MG BY MOUTH DAILY ACTIVE 3) Non-VA TADALAFIL 5MG TAB 5MG BY MOUTH DAILY ACTIVE Pertinent Labs: HEMOGLOBIN A1C TREND Collection DT Spec HGBA1c 08/21/2024 13:32 BLOOD 5.6 11/01/2022 09:45 BLOOD 5.4 LIPID PANEL TREND Collection DT Spec CHOL HDL CHO/HDL LDL-c TRIG 08/21/2024 13:32 SERUM 173 63 H 2.7 90 100 11/01/2022 09:45 SERUM 207 H 70 H 3.0 117 99 08/13/2015 14:04 SERUM 191 60 3.2 111 98 CREATININE-EGFR 08/21/24 13:32 0.77 A/P: LSMs reviewed and encouraged. Pt agrees to MOVE program; prefers L2 self-guided program. Discussed pharmacologic options: Orlistat: limited potential for weight loss; r/o GI ADRs: Qysmia: consider Contrave: avoid d/t buprenorphine GLP-1 agonist: has 3 weight related comorbidities; however, BMI <40 so does not meet [place] Scar[place] Resource [place] guidelines [place] [facility] Will f/u in 8 weeks review MOVE program and discuss medication options. Follow-up: 8 weeks Time Spent: 30 minutes Suicide Screen: C-SSRS Screening [place]-Suicide Severity Rating Scale (C-SSRS Screener) 1. Over [...] required due to responses to other questions. PBM PharmD Pharmacotherapy Rem V12: PHARMACIST INTERVENTIONS: OBESITY/WEIGHT MANAGEMENT Medication monitoring, no dosage change required, continue to monitor and assess Medication reconciliation (changes to active VA and non-VA medication lists to reconcile differences) No changes to medication lists made (medication review completed, no discrepancies identified) /jac/ Nina Cho PharmD Clinical Pharmacy Practitioner Signed: 09/05/2024 14:55 09/05/2024 ADDENDUM STATUS: COMPLETED Will ask MSA to please schedule patient for: [X] SPR VVC PHARM PACT 1 RTC order placed. Appointent Length: 30 minutes. Thank you! /jac/ Nina Cho PharmD Clinical Pharmacy Practitioner Signed: 09/05/2024 14:56 Receipt Acknowledged By: 09/09/2024 13:05 /jac/ LISA MAGANA ADVANCE ZIPPER SETTER CHAINSTITCH 09/09/2024 ADDENDUM STATUS: COMPLETED THIS BENEFITS ANALYST WAS UNABLE TO REACH LMOM 09/05/24 LMOM 09/08/24 TROUBLE REACHING VET 09/08/24 /tisha MAGANA ADVANCE ZIPPER SETTER CHAINSTITCH Signed: 09/09/2024 13:03 NINA CHO
--- OUTSIDE RECORDS SUMMARY | 2024-09-17 15:36 | XMS_ITS ---
Author Name [facility] [place] Organization [place] Address [address] [place] [address] Care Team Providers Care Bleach Range Operator Name Role Phone KRISTOPHER MAXWELL Primary [...] ANDERSENT ION [id number] 1 May 28, 2017 [id number] [phone] [place] MAK PATIENT MEDICARE (WNR) MEDICARE (M) PART A Mar 28, 2021 PART A [id number] [id number] [place] MAK PATIENT MEDICARE (WNR) MEDICARE (M) PART B Mar 28, 2021 PART B [id number] QV20 [place] MAK PATIENT MEDICARE (WNR) MEDICARE (M) PART A Mar 28, 2021 PART A [id number] QV20 OBDULIO,W ILLIAM PATIENT MEDICARE (WNR) MEDICARE (M) PART B Mar 28, 2021 PART B [id number] [id number] OBDULIO,W ILLIAM PATIENT OPTUM RX PRESCRIPT ION RX May 28, 2022 THPRX [id number] OBDULIO,W ILLIAM PATIENT OPTUM RX PRESCRIPT ION RX May 28, 2022 THPRX [id number] [phone] OBDULIO,W ILLIAM PATIENT OPTUM RX PRESCRIPT ION RX Sep 11, 2018 THPRX [id number] OBDULIO,W ILLIAM PATIENT [facility] May [facility], 2017 [id number] [phone] OBDULIO,W ILLIAM PATIENT [facility]ALTH [facility] May 28, 2017 [facility] [id number] OBDULIO,W ILLIAM PATIENT [facility](WNR) [facility] TON RAFAEL May 28, 2017 [id number] OBDULIO,W ILLIAM PATIENT [facility] (R[facility] May 28, 2017 (R) [id number] OBDULIO,W ILLIAM PATIENT [facility] Sep 11, 2018 [id number] OBDULIO,W ILLIAM PATIENT Selected Encounter This section includes the information on record at [place] for the Encounter. Date/Time Encounter Type Encounter Description Reason Provider Source Jan 14, 2024 11:00 AM HEARING AID REPAIR/MODIFYIN G AUDIOLOGY ICD-10-CM Z46.1 Encounter for fitting and adjustment of hearing aid CHRIS ROBERTSON Encounter Template Text not used by [facility] Assessments - Encounter Diagnoses This section includes the primary and secondary diagnoses documented for the Encounter. Date/Time Primary/Secondary Diagnosis Diagnosis Name Provider Source Jan 14, 2024 11:41 AM PRIMARY Encounter for fitting and adjustment of hearing aid LEANDRO CASTELLANO [facility] [place] [facility] Jan 14, 2024 11:41 AM SECONDARY Sensorineural hearing loss, bilateral LEANDRO CASTELLANO [facility] [place] [facility] Plan of Treatment: Future Appointments (+ 6 months) and Future Tests (+/- 45 days) The Plan of Treatment section includes future care activities for the patient from all [place] [facility] This section includes future appointments and future [...] - MEDICINE [facility] [place] [facility] Feb 26, 2024 08:30 AM AMBULATORY - MEDICINE [facility] [place] [facility] Mar 21, 2024 08:30 AM AMBULATORY - MEDICINE [facility] [place] [facility] Apr 22, 2024 08:30 AM AMBULATORY - MEDICINE [facility] [place] [facility] May 23, 2024 08:30 AM AMBULATORY - MEDICINE [facility] [place] [facility] Jun 05, 2024 10:00 AM AMBULATORY - MEDICINE [facility] [place] [facility] Jun 05, 2024 11:00 AM AMBULATORY - REHAB MEDICIN E [facility] [place] [facility] Jun 27, 2024 08:30 AM AMBULATORY - MEDICINE [facility] [place] [facility] Jun 30, 2024 08:30 AM AMBULATORY - MEDICINE [facility] [place] [facility] Jun 30, 2024 09:30 AM AMBULATORY - MEDICINE [facility] [place] [facility] Jun 30, 2024 10:30 AM AMBULATORY - MEDICINE [facility] [place] [facility] Jul 08, 2024 10:00 AM AMBULATORY - MEDICINE [facility] [place] [facility] Advance Directives: All historical and current Section Date Range: From patient's date of to the date document was created. This section includes ALL of a patient's completed or amended [place] Advance and Rescinded Directives. The entries below [...] AM AUDIOLOGY NOTE: LOCAL TITLE: AUDIOLOGY HEALTH YOUTH PROGRAM DIRECTOR STANDARD TITLE: AUDIOLOGY NOTE DATE OF NOTE: JAN 14, 2024@07:55 ENTRY DATE: JAN 14, 2024@07:55:19 AUTHOR: JOSÉ CASTELLANO COSIGNER: CHRIS ROBERTSON URGENCY: STATUS: COMPLETED January 14, 2024 History/Background: was seen for a hearing aid follow up, unaccompanied. was scheduled today for maintenance on his hearing aids. Hearing aids: [employer] [facility] Serial Numbers: [id number] Battery Size: 13 Date Issued: 07/06/2023 Hearing aid check: Both hearing aids were cleaned and checked. Replaced tubes and tonehooks on ALL 6 earmolds, and madison covers. Biologic check was good. Plan: will call to schedule. Note: All future appointments should be 60 mins as has 6 earmolds he would like tubed. /jac/ JOSÉ CASTELLANO [facility] Drywall Hanger Framer Signed: 01/14/2024 11:42 /ALISA Cotto, [facility]-A STAFF DIRECTOR GEOPHYSICAL LABORATORY Cosigned: 01/14/2024 12:47 JOSÉ CASTELLANO [facility]
--- OUTSIDE RECORDS SUMMARY | 2024-09-17 15:36 | XMS_ITS | Encounter Summary ---
Author Name [facility] [place] [facility] [place] [facility] [facility] [place] Address [address] [place] [address] Care Team Providers Care Hospital Supervisor Name Role Phone KRISTOPHER MAXWELL Primary [...] EMILY STEELE [id number] 1 May 28, 2017 [id number] [phone] [place] MAK PATIENT MEDICARE (WNR) MEDICARE (M) PART A Mar 28, 2021 PART A [id number] [place] MAK PATIENT MEDICARE (WNR) MEDICARE (M) PART B Mar 28, 2021 PART B [id number] [place] MAK PATIENT MEDICARE (WNR) MEDICARE (M) PART A Mar 28, 2021 PART A [id number] OBDULIO,W ILLIAM PATIENT MEDICARE (WNR) MEDICARE (M) PART B Mar 28, 2021 PART B [id number] [id number] OBDULIO,W ILLIAM PATIENT OPTUM RX PRESCRIPT ION RX May 28, 2022 THPRX [id number] [phone] OBDULIO,W ILLIAM PATIENT OPTUM RX PRESCRIPT ION RX May 28, 2022 THPRX [id number] OBDULIO,W ILLIAM PATIENT OPTUM RX PRESCRIPT ION RX Sep 11, 2018 THPRX [id number] [phone] OBDULIO,W ILLIAM PATIENT [facility] HEALTH PLAN [facility] E May 28, 2017 [id number] OBDULIO,W ILLIAM PATIENT [facility] HEALTH PLAN [facility] May 28, 2017 [facility] [id number] OBDULIO,W ILLIAM PATIENT [facility] HEALTH PLAN(WNR) [facility] May 28, 2017 [id number] OBDULIO,W ILLIAM PATIENT [facility] (R) [place] (WN R) May 28, 2017 (WNR) [id number] OBDULIO,W ILLIAM PATIENT [facility] Sep 11, 2018 [id number] OBDULIO,W ILLIAM PATIENT Selected Encounter This section includes the information on record at [place] for the Encounter. Date/Time Encounter Type Encounter Description Reason Provider Source Dec 14, 2023 11:30 AM MTMS BY PHARM TIERNEY 15 MIN PAIN CLINIC ICD-10-CM M54.50 Low back pain, unspecified HEMAL MCNAMARA IHSergey Encounter Template Text not used by [facility] Assessments - Encounter Diagnoses This section includes the primary and secondary diagnoses documented for the Encounter. Date/Time Primary/Secondary Diagnosis Diagnosis Name Provider Source Dec 14, 2023 01:33 PM PRIMARY Low back pain, unspecified HEMAL MCNAMARA [place] [facility] [place] [facility] Plan of Treatment: Future Appointments (+ 6 months) and Future Tests (+/- 45 days) The Plan of Treatment section includes future care activities for the patient from all [facility]. This section includes future appointments and [...] - MEDICINE PA C [facility] [place] [facility] Jan 11, 2024 09:00 AM AMBULATORY - MEDICINE PA C [facility] [place] [facility] Jan 14, 2024 11:00 AM AMBULATORY - REHAB MEDICIN E PA [facility] [place] [facility] Feb 08, 2024 08:30 AM AMBULATORY - MEDICINE PA C [facility] [place] [facility] Feb 26, 2024 08:30 AM AMBULATORY - MEDICINE PA C [facility] [place] Mar 21, 2024 08:30 AM AMBULATORY - MEDICINE PA C [facility] [place] [facility] Apr 22, 2024 08:30 AM AMBULATORY - MEDICINE PA C [facility] [place] [facility] May 23, 2024 08:30 AM AMBULATORY - MEDICINE PA C [facility] [place] [facility] Jun 05, 2024 10:00 AM AMBULATORY - MEDICINE PA C [facility] Jun 05, 2024 11:00 AM AMBULATORY - REHAB MEDICIN E PA [facility] [place] [facility] Lab Results: +/- 30 days of the encounter This section includes the Chemistry and Hematology Lab Results on record with PA for the patient. Radiology Reports and Pathology Reports are provided separately, in subsequent sections. Lab Results This section contains the Chemistry/Hematology Results that were resulted 30 days before or 30 daysafter the date of the Encounter. Date/Time Source Result Type Result - Unit Interpretation Reference Range Specimen Type Comment Dec 14, 2023 12:27 PM [facility] METHADONE SCREEN URINE Specimen Type: URINE Comment: DERECK test are qualitative, any L or H flags only indicate a PA alert was sent. Ordering Provider: HEMAL MCNAMARA Report Released Date/Time: Dec 14, 2023 11:59 AM Reporting Lab: [address] [address] Performing Lab: [facility] [address] [facility] [address] METHADONE SCREEN None detected(Negative) L Negative Dec 14, 2023 12:27 PM [facility] ALCOHOL, ETHYL URINE PANEL URINE Specimen Typ e: URINE Comment: Urine with Cr <5 is [...] 11 may have been adulterated. Ordering Provider: HEMAL MCNAMARA Report Released Date/Time: Dec 14, 2023 11:59 AM Reporting Lab: [address] [address] Performing Lab: [address] [address] ALCOHOL, ETHYL URINE NONE-DETECTED mg/dL NONE-DETECTED, cutoff = 10 mg/dL PH, DERECK 5.8 [pH] 4-10 CREATININE, DERECK 84.74 mg/dL >20 SP.GRAVITY, DERECK 1.011 1.003-1.020 Dec 14, 2023 12:27 PM [facility] AMPHETAMINES SCREEN PANEL URINE Specimen Type : URINE Comment: Urine with Cr <5 is [...] 11 may have been adulterated. Ordering Provider: HEMAL MCNAMARA Report Released Date/Time: Dec 14, 2023 11:59 AM Reporting Lab: [address] [address] Performing Lab: [address] [address] AMPHETAMINES SCREEN NONE-DETECTED None-D etected, Cutoff = 1000 ng/mL PH, DERECK 5.8 [pH] 4-10 CREATININE, DERECK 84.74 mg/dL >20 SP.GRAVITY, DERECK 1.011 1.003-1.020 Dec 14, 2023 12:27 PM [facility] FENTANYL SCREEN PANEL URINE Specimen Type: UR INE Comment: Urine with Cr <5 is diluted [...] CONFIRMATION NOT SENT BY LAB. Ordering Provider: HEMAL MCNAMARA Report Released Date/Time: Dec 14, 2023 11:59 AM Reporting Lab: [address] [address] Performing Lab: [address] [address] FENTANYL SCREEN NONE-DETECTED ng/mL Nega tive: Cutoff = 1.00 ng/mL PH, DERECK 5.8 [pH] 4-10 CREATININE, DERECK 85.39 mg/dL >20 SP.GRAVITY, DERECK 1.011 1.003-1.020 Dec 14, 2023 12:27 PM [facility] BENZODIAZEPINES SCREEN PANEL URINE Specimen T ype: URINE Comment: Urine with Cr <5 is [...] 11 may have been adulterated. Ordering Provider: HEMAL MCNAMARA Report Released Date/Time: Dec 14, 2023 11:59 AM Reporting Lab: [address] [address] Performing Lab: [address] [address] BENZODIAZEPINES SCREEN NONE-DETECTED Non e-Detected, Cutoff = 200 ng/mL PH, DERECK 5.8 [pH] 4-10 CREATININE, DERECK 84.74 mg/dL >20 SP.GRAVITY, DERECK 1.011 1.003-1.020 Dec 14, 2023 12:27 PM [facility] BUPRENORPHINE SCREEN PANEL URINE Specimen Typ e: URINE Comment: Urine with Cr <5 is [...] 11 may have been adulterated. Ordering Provider: HEMAL MCNAMARA Report Released Date/Time: Dec 14, 2023 11:59 AM Reporting Lab: [address] [address] Performing Lab: [address] [address] BUPRENORPHINE (URINE) NONE-DETECTED None Detected, Cutoff = 10.0 ng/mL PH, DERECK 5.8 [pH] 4-10 CREATININE, DERECK 84.74 mg/dL >20 SP.GRAVITY, DERECK 1.011 1.003-1.020 Dec 14, 2023 12:27 PM [facility] CANNABINOIDS SCREEN PANEL URINE Specimen Type : URINE Comment: Urine with Cr <5 is [...] 11 may have been adulterated. Ordering Provider: HEMAL MCNAMARA Report Released Date/Time: Dec 14, 2023 11:59 AM Reporting Lab: [address] [address] Performing Lab: [address] [address] CANNABINOIDS SCREEN NONE-DETECTED None-D etected,Cutoff = 50 ng/mL PH, DERECK 5.8 [pH] 4-10 CREATININE, DERECK 84.74 mg/dL >20 SP.GRAVITY, DERECK 1.011 1.003-1.020 Dec 14, 2023 12:27 PM [facility] COCAINE SCREEN PANEL URINE Specimen Type: URI NE Comment: Urine with Cr <5 is diluted [...] 11 may have been adulterated. Ordering Provider: HEMAL MCNAMARA Report Released Date/Time: Dec 14, 2023 11:59 AM Reporting Lab: [address] [address] Performing Lab: [address] [address] COCAINE SCREEN NONE-DETECTED None-Detect ed,Cutoff = 300 ng/mL PH, DERECK 5.8 [pH] 4-10 CREATININE, DERECK 84.74 mg/dL >20 SP.GRAVITY, DERECK 1.011 1.003-1.020 Dec 14, 2023 12:27 PM [facility] OXYCODONE SCREEN PANEL URINE Specimen Type: U RINE Comment: Urine with Cr <5 is diluted [...] 11 may have been adulterated. Ordering Provider: HEMAL MCNAMARA Report Released Date/Time: Dec 14, 2023 11:59 AM Reporting Lab: [address] [address] Performing Lab: [address] [address] OXYCODONE SCREEN NONE-DETECTED None-Dete cted, Cutoff = 100 ng/mL PH, DERECK 5.8 [pH] 4-10 CREATININE, DERECK 84.74 mg/dL >20 SP.GRAVITY, DERECK 1.011 1.003-1.020 Dec 14, 2023 12:27 PM [facility] OPIATES SCREEN PANEL URINE Specimen Type: URI NE Comment: Urine with Cr <5 is diluted [...] 11 may have been adulterated. Ordering Provider: HEMAL MCNAMARA Report Released Date/Time: Dec 14, 2023 11:59 AM Reporting Lab: [address] [address] Performing Lab: [address] [address] OPIATES SCREEN NONE-DETECTED None-Detect ed, Cutoff = 300 ng/mL PH, DERECK 5.8 [pH] 4-10 CREATININE, DERECK 84.74 mg/dL >20 SP.GRAVITY, DERECK 1.011 1.003-1.020 Advance Directives: All historical and current Section [...] Dec 02, 2020 ADVANCE DIRECTIVE ZAIRE COMER [facility] Encounter Notes: All associated [...] Risk of Opioid therapy was assessed using: [employer] database Chart Review Risk Assessment: - Using [...] of controlled substances prescribed outside of the [facility], and any additional information that may become available, as an important component of standard clinical care and in accordance with [facility] policy. 08/21/23 15:12 Ihsan Moses MD PDMP Appriss Mcgrann 08/24/23 11:51 Hemal Mcnamara PDMP [place] 08/31/23 09:10 Hemal Mcnamara PDMP [place] 09/07/23 10:08 Hemal Mcnamara PDMP [place] 09/14/23 10:16 Hemal Mcnamara PDMP [place] 09/28/23 09:12 Hemal Mcnamara PDMP [place] 10/19/23 08:55 Hemal Mcnamara PDMP [place] 11/13/23 11:01 Hemal Mcnamara PDMP [place] 12/04/23 14:47 Hemal Mcnamara PDMP [place] 12/14/23 10:48 Hemal Mcnamara PDMP [place] Urine Drug Screen: A urine drug screen [...] Naloxone prescription was found. - Completed today /jac/ HEMAL MCNAMARA CLINICAL PHARMACIST PRACTITIONER, PAIN Signed: 12/14/2023 13:38 HEMAL MCNAMARA PA [facility] [place] [facility] Dec 14, 2023 12:09 PM MEDICATION MGT [...] An order was placed for naloxone. /jac/ HEMAL MCNAMARA CLINICAL PHARMACIST PRACTITIONER, PAIN Signed: 12/14/2023 13:38 HEMAL MCNAMARA PA [facility] [facility] Dec 14, 2023 10:50 AM ACCOUNTING OF [...] standard clinical care, and in accordance with [facility] policy. Patient information was shared with the PDMP Appriss Mcgrann. Prescription(s) filled outside the [facility] in the last 90 days are noted. However, they do not raise significant safety concerns and do not influence the treatment plan at this time. Fill Date ID Written Drug Qty Days Prescriber Rx # Pharmacy Refill Daily Dose * Pymt Type ON AIR ANNOUNCER 12/04/2023 4 12/04/2023 Pregabalin 225 Mg Capsule 60.00 30 Be [facility] [id number] Md (4904) 0/0 /[facility] [place] 10/25/2023 2 10/25/2023 Tramadol Hcl 50 Mg Tablet 15.00 3 Pe Sha [id number] [facility] (1604) 0/0 50.00 [facility] [place] 10/24/2023 4 10/19/2023 Pregabalin 225 Mg Capsule 60.00 30 Be [facility] [id number] Md (4904) 0/0 /[facility] [place] 10/13/2023 2 10/13/2023 Oxycodone Hcl (Ir) 5 Mg Tablet 5.00 2 Rm Art [id number] [facility] (1604) 0/0 18.75 [facility] Comm Ins [place] 10/01/2023 4 09/28/2023 Pregabalin 225 Mg Capsule 60.00 30 Be [facility] [id number] Md (4904) 0/0 /[facility] [place] 09/14/2023 3 09/14/2023 Pregabalin 200 Mg Capsule 28.00 14 Be Zana [id number] Md (4904) 0/0 /[facility] [place] 09/07/2023 3 09/07/2023 Pregabalin 100 Mg Capsule 42.00 14 Be Zana [id number] Va (4904) 0/0 /[facility] [place] 08/31/2023 3 08/31/2023 Pregabalin 75 Mg Capsule 42.00 14 Be Zana [id number] [facility] (4904) 0/0 /[facility] [place] 08/24/2023 3 08/24/2023 Pregabalin 100 Mg Capsule 28.00 14 Be Zana [id number] Md (4904) 0/0 /[place] 07/26/2023 2 07/26/2023 Oxycodone-Acetaminophen 5-325 40.00 5 Da Kaylen [id number] [facility] (9935) 0/0 60.00 [facility] [place] 07/13/2023 2 07/13/2023 Oxycodone-Acetaminophen 5-325 40.00 3 Da Kaylen [id number] [facility] (9935) 0/0 100.00 [facility] [place] 06/13/2023 2 06/12/2023 Gabapentin 600 Mg Tablet 270.00 90 [place] [id number] Bishnu (8260) 0/0 [facility] [place] 03/08/2023 1 03/06/2023 Gabapentin 600 Mg Tablet 270.00 90 [place] [id number] B[facility]nu (8260) 0/0 [facility] [place] 11/01/2022 1 07/12/2022 Gabapentin 600 Mg Tablet 270.00 90 [facility] [id number] Bishnu (8272) 1/ [place] 07/25/2022 2 07/12/2022 Gabapentin 600 Mg Tablet 270.00 90 [facility] [id number] Bishnu (8272) 0/ [place] 05/04/2022 2 05/01/2022 Gabapentin 600 Mg Tablet 270.00 90 [place] [id number] Bishnu (8272) 0/0 [place] 02/06/2022 1 02/02/2022 Gabapentin 600 Mg Tablet 270.00 90 [place] [id number] Bishnu (8272) 0/0 [place] // HEMAL MCNAMARA CLINICAL PHARMACIST PRACTITIONER, PAIN Signed: 12/14/2023 13:38 HEMAL MCNAMARA PA [facility] [place] [facility] Dec 14, 2023 10:47 AM PAIN MEDICINE OUTP ATIENT NOTE: LOCAL TITLE: PAIN CLINIC NOTE STANDARD TITLE: PAIN MEDICINE OUTPATIENT NOTE DATE OF NOTE: DEC 14, 2023@10:47 ENTRY DATE: DEC 14, 2023@10:47:41 AUTHOR: HEMAL MCNAMARA COSIGNER: URGENCY: STATUS: COMPLETED TEODORA Da Silva is 68 year old WHITE MALE with a history of chronic low back pain, who presents to pharmacy pain management clinic today for routine follow-up appointment. 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 In regard to Pain, Berta reports pregabalin works for a while . He notes pain is worsened in the afternoon and he notices he becomes more bent in guarding from the pain. He was able complete the [employer] November [employer] Par[address] route through with his fellow [employer] members. -- PAIN SCREENING: PEG PAIN SCREENING [...] BID (last filled: 12/04/23 for 30-days) - [place] confirms taking as prescribed #3. Non-VA Tramadol 50mg (filled 10/25/23 for #15 tabs) - Previous prescription after hand fracture; no longer using EVALUATION OF SOCIAL HISTORY: ---- TOBACCO USE: Denied. Quit ~30 yrs ago ALCOHOL USE: Socially when at [employer]; 1-2 beers, 1-2x per week CANNABIS [...] is the source for the followin. Hyperlipidemia ([facility] [id number]) 2. Impaired Fasting Glucose ([facility] [id number]) 3. Erectile Dysfunction ([facility] [id number]) 4. Tinnitus 5. Hearing loss 6. Exposure to Potentially Hazardous Substance ([facility] [id number]) 7. Syncope and collapse 8. Low back [...] multiple surgeries to cervical and lumbar spine. [place] also followed by Non-VA providers for chronic pain related interventions. A significant portion of today's appointment was spent reviewing previous discussion on buprenorphine (see 11/13/23 Pain Clinic note). reports he had time to think about buprenorphine and would like to trial use to potential help with some of the nociceptive pain components. Counseling providing on the proper application, rotation, and disposal of Butrans patches. As [place] is currently opioid naive will start at Butrans 5mcg/hr Q7days. The long-term consent for opioid therapy was reviewed and completed with [place] today. Discussed potential risks vs. benefits of therapy and expectations for monitoring. [place] agreed to complete UDS today which returned salgado negative as expected. Provided education on naloxone and s/sx of OIRD and efficacy of naloxone in reversal of buprenorphine only overdose. While [place] initially declined prescribing he later asked for [...] the development of this plan, involving the [place] and clinician caregivers present. The was provided [...] PRACTITIONER, PAIN Signed: 12/14/2023 14:37 HEMAL MCNAMARA [facility] [place] [facility]
--- OUTSIDE RECORDS SUMMARY | 2024-09-17 15:36 | XMS_ITS ---
Author Name [facility] [place] [facility] [place] [facility] [place] Address 0 [place] [address] Care Team Providers Care Pediatric Audiologist Name Role Phone KRISTOPHER MAXWELL Primary Care [...] PRESCRIPT ION [id number] 1 May 28, 2017 [id number] [place] MAK PATIENT MEDICARE (WNR) MEDICARE (M) PART A Mar 28, 2021 PART A [id number] [phone] [place] MAK PATIENT MEDICARE (WNR) MEDICARE (M) PART B Mar 28, 2021 PART B [id number] [place] MAK PATIENT MEDICARE (WNR) MEDICARE (M) PART A Mar 28, 2021 PART A [id number] OBDULIO,W ILLIAM PATIENT MEDICARE (WNR) MEDICARE (M) PART B Mar 28, 2021 PART B [id number] [id number] [phone] OBDULIO,W ILLIAM PATIENT OPTUM RX PRESCRIPT ION RX May 28, 2022 THPRX [id number] OBDULIO,W ILLIAM PATIENT [facility]UM RX PRESCRIPT ION RX May 28, 2022 THPRX [id number] [phone] OBDULIO,W ILLIAM PATIENT [facility] RX PRESCRIPT ION RX Sep 11, 2018 THPRX [id number] OBDULIO,W ILLIAM PATIENT [facility] May 28, 2017 [id number] OBDULIO,W ILLIAM PATIENT [facility] May 28, 2017 [facility] [id number] OBDULIO,W ILLIAM PATIENT [facility](WNR) [facility] TON RAFAEL May 28, 2017 [id number] OBDULIO,W ILLIAM PATIENT [facility] (R) [facility](WN R) May 28, 2017 (R) [id number] OBDULIO,W ILLIAM [facility]IENT [facility] Sep 11, 2018 [id number] OBDULIO,W ILLIAM PATIENT Selected Encounter This section includes the information on record at [place] for the Encounter. Date/Time Encounter Type Encounter Description Reason Provider Source Sep 02, 2024 09:00 AM HEARING AID FITTING/CHECKIN G AUDIOLOGY ICD-10-CM Z46.1 Encounter for fitting and adjustment of hearing aid GRETCHEN GRANADOS Encounter Template Text not used by [facility] Assessments - Encounter Diagnoses This section includes the primary and secondary diagnoses documented for the Encounter. Date/Time Primary/Secondary Diagnosis Diagnosis Name Provider Source Sep 02, 2024 09:40 AM PRIMARY Encounter for fitting and adjustment of hearing aid GRETCHEN GRANADOS [place] [facility] [place] [facility] Sep 02, 2024 09:40 AM SECONDARY Sensorineural hearing loss, bilateral GRETCHEN GRANADOS E [facility] [place] [facility] Plan of Treatment: Future Appointments (+ 6 months) and Future Tests (+/- 45 days) The Plan of Treatment section includes future care activities for the patient from all [place] [facility]. This section includes future appointments and future orders which are active, pending or scheduled. Future Appointments This section includes appointments that were scheduled to occur 6 months from the date of the Encounter, up to a maximum of 20 appointments. The data comes from all [place] treatment facilities. Appointment Date/Time Appointment Type Appointme nt Facility Name Sep 03, 2024 10:30 AM [facility] Sep 05, 2024 02:30 PM AMBULATORY - MEDICINE [place] [facility] [place] [facility] September 26, 2024 08:30 AM AMBULATORY - MEDICINE [place] [facility] [place] [facility] October 15, 2024 03:00 PM AMBULATORY - NONE [facility] [place] [facility] Oct 27, 2024 11:30 AM AMBULATORY - MEDICINE [place] [facility] [place] [facility] Nov 03, 2024 02:00 PM AMBULATORY - MEDICINE [place] [facility] [place] [facility] Nov 25, 2024 09:00 AM AMBULATORY - REHAB MEDICIN [place] [facility] [place] [facility] Jan 14, 2025 10:30 AM AMBULATORY - MEDICINE [facility] Active, Pending, and Scheduled Orders This section includes a listing of several types of active, pending, and scheduled orders, including clinic medications orders, diagnostic test orders, procedure orders and consult orders; where the start date of the order is 45 days before the date of the Encounter or 45 days after the date of theEncounter. The data comes from all [place] treatment facilities. Test Date/Time Test Type Test Details Facility Name Aug 21, 2024 01:34 PM Consult Order TELE-EYE S CREENING CONSULT/SPOPC (OUTPT) Cons [facility] Sep 05, 2024 02:57 PM Consult Order L2 CONSULT (LOW ACUITY/INTENSITY TELEHEALTH) Cons [facility] Lab Results: +/- 30 days of the encounter This section includes the Chemistry and Hematology Lab Results on record with [place] for the patient. Radiology Reports and Pathology Reports are provided separately, in subsequent sections. Lab Results This section contains the Chemistry/Hematology Results that were resulted 30 days before or 30 daysafter the date of the Encounter. Date/Time Source Result Type Result - Unit Interpretation Reference Range Specimen Type Comment Aug 21, 2024 01:32 PM [facility] TSH SERUM Specimen Type: SERUM No comment entered. Ordering Provider: KRISTOPHER MAXWELL Report Released Date/Time: Aug 19, 2024 09:44 AM Reporting Lab: [address] [address] Performing Lab: [address] [address] TSH 0.55 u[IU]/mL 0.35-5.00 Aug 21, 2024 01:32 PM [facility] BASIC METABOLIC PANEL (non-fasting) SERUM Specimen Type: SERUM No comment entered. Ordering Provider: KRISTOPHER MAXWELL Report Released Date/Time: Aug 19, 2024 09:44 AM Reporting Lab: [address] [address] Performing Lab: [address] [address] UREA NITROGEN 8 mg/dL 7-25 GLUCOSE 80 mg/dL 65-100 SODIUM 136 mmol/L 135-145 POTASSIUM 3.8 mmol/L 3.5-5.0 CHLORIDE 107 mmol/L 100-110 CO2 21 meq/L 20-30 CALCIUM 8.3 mg/dL L 8.5-10.2 CREATININE, Serum 0.77 mg/dL 0.50-1.40 eGFR(CKD-EPI 2020) >90 mL/min >60 Aug 21, 2024 01:32 PM [facility] LIPID PANEL, NON FASTING SERUM Specim en Type: SERUM No comment entered. Ordering Provider: KRISTOPHER MAXWELL Report Released Date/Time: Aug 19, 2024 09:44 AM Reporting Lab: [address] [address] Performing Lab: [place] [address] [address] CHOLESTEROL 173 mg/dL TRIGLYCERIDE 100 mg/dL 0-150 LDL calculated 90 mg/dL 0-129 CHOL/HDL 2.7 HDL CHOLESTEROL 63 mg/dL H 40-60 Aug 21, 2024 01:32 PM [facility] LIVER FUNCTION SERUM Specimen Type: SERUM No comment entered. Ordering Provider: KRISTOPHER MAXWELL Report Released Date/Time: Aug 19, 2024 09:44 AM Reporting Lab: [address] [address] Performing Lab: [address] [address] PROTEIN,TOTAL 7.0 g/dL 6.0-8.3 ALBUMIN 3.7 g/dL 3.5-5.0 ALKALINE PHOSPHATASE 73 U/L 40-150 AST 17 U/L 5-34 ALT 16 U/L BILIRUBIN, TOTAL 0.5 mg/dL 0.2-1.2 Aug 21, 2024 01:32 PM [facility] HEMOGLOBIN A1C PANEL BLOOD Specimen T ype: [...] Aug 19, 2024 09:44 AM Reporting Lab: [address] [address] Performing Lab: [address] [address] HEMOGLOBIN A1C 5.6 4.0-5.6 Aug 21, 2024 01:32 PM [facility] CBC AND DIFF (AUTO) BLOOD Specimen Ty pe: BLOOD No comment entered. Ordering Provider: KRISTOPHER MAXWELL Report Released Date/Time: Aug 19, 2024 09:44 AM Reporting Lab: [address] [address] Performing Lab: [place] [address] [facility] [address] WBC 7.57 10*3/uL 4.50-11.00 RBC 4.38 10*6/uL [...] 10*3/uL 0.00-0.00 Aug 21, 2024 01:32 PM [facility] PSA SERUM Sp ecimen Type: SERUM No comment entered. Ordering Provider: KRISTOPHER MAXWELL Report Released Date/Time: Aug 21, 2024 01:04 PM Reporting Lab: [facility] [address] [facility] [address] Performing Lab: [address] [address] PSA 0.63 ng/mL 0.00-4.00 Social History: Smoking Status (Most current) and Tobacco Use (All prior to encounter date) This section includes the most current, and the historical, smoking and tobacco- related health factors from the [place] facility where the Encounter took place. Current Smoking Status This section includes the most current smoking, or tobacco-related health factor, from the [place] facility where the Encounter took place. Date/Time Current Smoking Status Comment Kaycee ity Jun 30, 2024 10:30 AM VA-TOBACCO USE FOR HIPOLITO CIGARETTES [facility] Tobacco Use History This section includes a history of the smoking, or tobacco-related health factors, that were collected on or before the date of the Encounter. The data comes from the [place] facility where the Encounter took place. Date/Time Smoking Status/Tobacco Use Comment F acility Jun 30, 2024 10:30 AM VA-TOBACCO USE FOR HIPOLITO CIGARETTES [facility] Advance Directives: All historical and current Section [...] Source Dec 02, 2020 ADVANCE DIRECTIVE COMERZAIRE RENUKA [facility] Encounter Notes: All associated encounter notes This section contains the clinical notes associated to the Encounter. Date/Time Encounter Note(s) Provider Source Sep 02, 2024 07:59 AM AUDIOLOGY E & M NO TE: [facility] TITLE: AUDIOLOGY CLINIC STANDARD TITLE: AUDIOLOGY E & M NOTE DATE OF NOTE: SEP 02, 2024@07:59 ENTRY DATE: SEP 02, 2024@07:59:45 AUTHOR: GRETCHEN GRANADOS EXP COSIGNER: URGENCY: STATUS: COMPLETED has a history of bilateral sensorineural hearing loss. He was seen on 09-02-24 for hearing aid follow up regarding his Melanie BTJac. He reports the remote madison needs to be re-paired. Deleted the pairing in the settings and re-paired the remote madison. Replaced tubes on both aids, sound check was positive. Assisted with connectivity and gave the tech support number. Provided him with spare tubes and hooks. RTC for HAC in three months entered. /jac/ Eun DA SILVA, [facility]-A STAFF PRODUCT LEAD Signed: 09/02/2024 09:42 GRETCHEN GRANADOSANGELES [facility]
--- OUTSIDE RECORDS SUMMARY | 2024-09-17 15:36 | XMS_ITS | Encounter Summary ---
Author Organization [facility] Address [address] [place] [address] Care Team Providers Care Corrosion Control Specialist Name Role Phone Gudelia Lynne MD Primary Care Provider [phone] Encounter Details Date Type Department Care Team (Late Contact Info) Description 08/27/2024 Lab Requisition [facility] - Main Lab [address] [facility] [place] [address] Haven Ruiz MD [address] [facility] [address] [place] [address] Benign prostatic hyperplasia with lower urinary tract symptoms Social History Tobacco Use Types Packs/Day Years [...] on file Sexual Orientation Not on file documented as of this encounter Plan of Treatment Upcoming Encounters Date Type Department Care Team (Late Contact Info) Description 10/29/2024 1:10 PM EDT Office Visit [facility] [address] [facility] [address] [place] [address] Edwina Stephens NP [address] [facility] [address] [place] [address] documented as of this encounter Procedures Procedure Name Priority Date/Time Associated Diagnosis Comments PROSTATE SPECIFIC ANTIGEN DIAGNOSTIC Routine 08/27/2024 8:28 AM EDT Benign prostatic hyperplasia with lower urinary tract symptoms documented in this encounter Results * Prostate specific antigen diagnostic (08/27/2024 8:28 AM EDT) PSA 0.72 0.00 - 4.00 ng/mL LAB CHEMISTRY METHOD 08/27/2024 12:00 PM EDT [facility] Blood Venous blood specimen / Unknown 08/27/2024 8:28 AM EDT 08/27/2024 11:24 AM EDT Narrative [facility] - 08/27/2024 12:00 PM EDT The Siemens Advia Betyahaur Chemiluminescent Immunoassay is used. Results obtained with different assay methods or kits cannot be used interchangeably. Results cannot be interpreted as absolute evidence of the presence or absence of malignant disease. us Haven Ruiz MD LAB BLOOD ORDERABLES Fin al Result [facility] [address] [place] [address], documented in this encounter Visit Diagnoses Diagnosis Benign prostatic hyperplasia with lower urinary tract symptoms documented in this encounter Care Teams Corrosion Control Specialist Relationship Specialty Start Date End Date Gudelia Lynne MD [address] [place] [address] PCP - General Internal Medicine 12/10/19 documented as of this encounter
== END 2024-09-17 13:50 | disposition home or self-care (01) ==
LOC: HO.HOS 13:11
PROVIDERS: PCP Internal Medicine; Visit Provider Orthopaedic Surgery
DX: M25.561 Pain in right knee (principal); Z96.651 Presence of right artificial knee joint
CPT/HCPCS: 99213

== ENCOUNTER → 2024-09-17 13:30 | Outpatient (BNV) | payer OTHER, SELFPAY | PROVIDERS: Visit Provider Radiology Diagnostic Radiology | DX: M25.561 Pain in right knee (principal); Z96.651 Presence of right artificial knee joint | CPT/HCPCS: 73562 ==

== ENCOUNTER 2024-11-24 08:44 | Outpatient (AMB) | payer OTHER, SELFPAY ==
[2024-11-24 09:00] VITALS: BP 156/72; PULSE 80; RESP 16; O2SAT 96; BMI 39.2
--- NOTE | 2024-11-24 09:00 | MHC.OFFVIS ---
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: No Allergies No Known Allergies Allergy (Verified 11/24/24 09:01) Medication List - Last Reconciled 11/24/24 by Mary Riley LPN acetaminophen ER 1,300 mg PO Q8H alfuzosin ER 10 mg PO BEDTIME aspirin 81 mg PO DAILY buprenorphine HCl 75 mcg buccal Q12H jzbisszpzwpt-trogybirtsd-cqmhj 1,000-200 mcg 1 tab PO DAILY cyanocobalamin (vitamin B-12) 1,000 mcg sublingual DAILY diclofenac sodium 1% 1 ea topical BID meloxicam submicronized 10 mg PO QAM omeprazole 20 mg PO QAM oxybutynin chloride ER 20 mg PO QAM tadalafil 5 mg PO QAM tolterodine ER 4 mg PO QAM triamcinolone acetonide 0.025% 1 appl topical BID HPI HPI Pain in right knee: Details: History of Present Illness The patient is a 69-year-old male presenting with chronic knee pain and lower back problems. The patient has a history of right total knee replacement performed around 1994, which was initially successful. However, he now experiences intermittent knee pain likely due to scar formation, which has been persistent despite attempts at physical therapy that aggravated the pain. The patient also reports severe lower back problems, attributed to degenerative disc disease, which have been exacerbated by his previous service in the [employer]. He has undergone multiple interventions, including physical therapy and medication management with pregabalin, but continues to experience significant pain. He has also had back surgeries in the past with potentially repeat surgery planned in the near future for degenerative disc disease. Per his report it seems like was previously offered a spinal cord stimulator but this was denied by his insurance for unclear reasons. Pain Description - Onset: Chronic pain following total knee replacement - Quality: Intermittent knee pain, severe lower back pain - Location: Right knee, lower back - Exacerbating factors: Physical therapy aggravated knee pain - Relieving factors: None effectively identified - Interference: Pain impacts daily activities and quality of life Physical Exam - Musculoskeletal: Well-healed incision across the left knee from prior knee replacement, tenderness to palpation around the knee joint in the medial and lateral aspects of the patella Pain Management - Affect: Pain significantly impacts quality of life - Analgesia: Currently using pregabalin, pain rated as 5/10 on average - Adverse Effects: No specific adverse effects discussed - Activities of Daily Living: Pain interferes with daily activities - Aberrant Drug Related Behaviors: None reported [facility] Medical History (Updated 08/11/24 @ 13:21 by Alex Askew MD) Digital mucous cyst of left hand Hematoma Pre-diabetes Hearing loss Diverticulosis Lumbar stenosis Syncope Osteoarthritis BPH (benign prostatic hyperplasia) Heart abnormality GERD (gastroesophageal reflux disease) Anemia Surgical History History of evacuation of hematoma History of ankle surgery Hx of excision of mass History of decompression of ulnar nerve History of surgery on wrist Hx of total knee replacement Hx of spinal surgery Hx of gastric bypass Hx of shoulder surgery Hx of neck surgery Hx of cataract surgery Hx of colonoscopy History of esophagogastroduodenoscopy (EGD) Family History Mother Intestinal cancer Sister Substance use disorder Social History Household Members: Spouse 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:: , 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 Are you a primary healthcare management consultant to a significant other at home: No Do you presently have visiting nurse or other home services: No Alcohol intake: current Alcohol intake frequency: a few times a week Patient Tobacco Use Status: Former Tobacco user Years Smoked: 10 e-Cigarette/Vaping Use: Never Used service: Yes Current occupational status: employed 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, 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 Cognitive needs: No Hearing needs: No Vision needs: Yes Physical Exam Vital Signs: Last Vital Signs Pulse 80 11/24/24 09:00 Resp 16 11/24/24 09:00 BP 156/72 H 11/24/24 09:00 Pulse Ox 96 11/24/24 09:00 Oxygen Delivery Method Room Air 11/24/24 09:00 BMI result Body Mass Index 39.2 Assessment & Plan Assessment & Plan (1) Right knee pain: Code(s): M25.561 - Pain in right knee Category: Medical (2) Lumbar stenosis: Comment: s/p 2 surgeries, 2017, Dr. Patel, f/u PA pain management on Buprenorphine patch Code(s): M48.061 - Spinal stenosis, lumbar region without neurogenic claudication Category: Medical Plan Plan - Request insurance authorization for a temporary right saphenous nerve stimulator for chronic right knee pain following total knee arthroplasty that has not responded to oral medications, physical therapy and surgical correction. - Plan to schedule the procedure upon approval. - Continue current medication regimen with pregabalin for lower back pain management. Patient was informed and verbally consented to the use of an ambient scribe for clinic note documentation during this visit. Discussion Notes I discussed with the patient the option of using a temporary right saphenous nerve stimulator for managing chronic knee pain. We reviewed the procedure, including its potential benefits and the process for obtaining insurance authorization. The patient was informed that the procedure would be scheduled once approval is obtained. We also discussed continuing the current medication regimen for lower back pain management. Patient Instructions - Await insurance authorization for the nerve stimulator procedure. - Continue taking pregabalin as prescribed for lower back pain. - Follow up with the clinic once insurance approval is received. Coding Level of Care Code New Pt Level 4 (26119) Diagnoses Right knee pain M25.561 Lumbar stenosis M48.061
== END 2024-11-24 09:58 | disposition home or self-care (01) ==
LOC: HO.PMC 08:44
PROVIDERS: PCP Internal Medicine; Referring Provider Orthopaedic Surgery; Visit Provider Internal Medicine
DX: M25.561 Pain in right knee (principal); M48.061 Spinal stenosis, lumbar region without neurogenic claudication
CPT/HCPCS: 99204

== ENCOUNTER → 2024-11-24 08:44 | Outpatient (BNVA) | payer OTHER, SELFPAY | PROVIDERS: PCP Internal Medicine; Referring Provider Orthopaedic Surgery; Visit Provider Internal Medicine | DX: M25.561 Pain in right knee (principal); M48.061 Spinal stenosis, lumbar region without neurogenic claudication | CPT/HCPCS: 99202 ==

== ENCOUNTER 2025-01-20 10:21 | Outpatient (AMB) | payer OTHER, SELFPAY ==
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
--- OUTSIDE RECORDS SUMMARY | 2024-11-03 10:00 | XMS_ITS | Encounter Summary ---
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 Name Role Phone FRANKY CHIN Primary Care [...] EMILY STEELE [id number] 1 May 28, 2017 [id number] [phone] [place] MAK PATIENT MEDICARE (WNR) MEDICARE (M) PART A Mar 28, 2021 PART A [id number] [place] MAK PATIENT MEDICARE (WNR) MEDICARE (M) PART B Mar 28, 2021 PART B [id number] [phone] [place] MAK PATIENT MEDICARE (WNR) MEDICARE (M) PART A Mar 28, 2021 PART A [id number] [place] MAK ILLBIJAL PATIENT MEDICARE (WNR) MEDICARE (M) PART B Mar 28, 2021 PART B [id number] OBDULIO,W ILLTAINAM PATIENT OPTUM RX PRESCRIPT ION RX May 28, 2022 THPRX [id number] OBDULIO,W ILLIAM PATIENT OPTUM RX PRESCRIPT ION RX May 28, 2022 THPRX [id number] OBDULIO,W ILLIAM PATIENT OPTUM RX PRESCRIPT ION RX Sep 11, 2018 THPRX [id number] OBDULIO,W ILLIAM PATIENT [facility] [id number] [phone] OBDULIO,W ILLIAM PATIENT [facility] May 28, 2017 [facility] [id number] OBDULIOW ILLIAM PATIENT [facility]WNR[facility] T[facility] RAFAEL May 28, 2017 [id number] OBDULIO,W ILLIAM PATIENT [facility] (R) [place] (WN R) May 28, 2017 (WNR) [id number] OBDULIO,W ILLBIJAL PATIENT [facility] Sep 11, 2018 [id number] O[place] GUYIAM PATIENT Selected Encounter This section includes the information on record at [place] for the Encounter. Date/Time Encounter Type Encounter Description Reason Provider Source Nov 03, 2024 02:00 PM MTMS BY PHARM [place] 15 MIN CLINICAL PHARMACY ICD-10-CM E66.01 Morbid (severe) obesity due to excess calories NINA CHO IHSergey Encounter Template Text not used by [place] Assessments - Encounter Diagnoses This section includes the primary and secondary diagnoses documented for the Encounter. Date/Time Primary/Secondary Diagnosis Diagnosis Name Provider Source Nov 03, 2024 02:14 PM PRIMARY Morbid (severe) obesity due to excess calories NINA CHO Plan of Treatment: Future Appointments (+ 6 months) and Future Tests (+/- 45 days) The Plan of Treatment section includes future care activities for the patient from all [place] [facility] This section includes future appointments and future orders which are active, pending or scheduled. Future Appointments This section includes appointments that were scheduled to occur 6 months from the date of the Encounter, up to a maximum of 20 appointments. The data comes from all [place] treatment facilities. Appointment Date/Time Appointment Type Appointme nt Facility Name Nov 25, 2024 09:00 AM AMBULATORY [facility] Nov 25, 2024 11:30 AM [facility] [facility] [place] [facility] Jan 05, 2025 10:30 AM [place] [facility] [place] [facility] Jan 13, 2025 08:30 AM [place] [facility] [place] [facility] Jan 13, 2025 12:00 PM [place] [facility] [place] [facility] Jan 14, 2025 10:30 AM [facility] Jan 14, 2025 11:00 AM [facility] Jan 23, 2025 08:30 AM [place] [facility] [place] [facility] Feb 06, 2025 02:00 PM [place] [facility] [place] [facility] Mar 02, 2025 11:30 AM [place] [facility] [place] [facility] Social History: Smoking Status (Most current) and Tobacco Use (All prior to encounter date) This section includes the most current, and the historical, smoking and tobacco- related health factors from the [place] facility where the Encounter took place. Current Smoking Status This section includes the most current smoking, or tobacco-related health factor, from the [place] facility where the Encounter took place. Date/Time Current Smoking Status Comment Facil ity Nov 01, 2022 09:00 AM VA-TOBACCO FORMER USER [place] Tobacco Use History This section includes a history of the smoking, or tobacco-related health factors, that were collected on or before the date of the Encounter. The data comes from the [place] facility where the Encounter took place. Date/Time Smoking Status/Tobacco Use Comment F acjeramie Nov 01, 2022 09:00 AM VA-TOBACCO QUIT 15 YRS OR MORE [facility] [place] Nov 03, 2021 02:00 PM VA-TOBACCO NEVER USED [place] October 19, 2020 09:00 AM VA-TOBACCO FORMER USER [facility] [place] October 19, 2020 09:00 AM VA-TOBACCO QUIT 15 YRS OR MORE [place] Aug 16, 2018 12:32 PM VA-TOBACCO NEVER USED [place] Aug 16, 2017 02:32 PM QUIT TOBACCO USE > 7 YEARS AGO stopped smoking over 25 years ago [place] Aug 15, 2016 09:59 AM QUIT TOBACCO USE > 7 YEARS AGO quit 25 years ago [place] Aug 13, 2015 02:47 PM QUIT TOBACCO USE > 7 YEARS AGO smoked cig, ~20/day, quit 20 yrs ago [place] Aug 10, 2014 01:28 PM QUIT TOBACCO USE > 7 YEARS AGO quit 20+ yrs ago [place] Advance Directives: All historical and current Section Date Range: From patient's date of to the date document was created. This section includes ALL of a patient's completed or amended VA Advance and Rescinded Directives. The entries below indicate that a directive exists for the patient, but an actual copy is not included with this document. The data comes from all [place] facilities. Date Advance Directives Provider Source Dec 02, 2020 ADVANCE DIRECTIVE ZAIRE COMER [facility] [place] Encounter Notes: All associated encounter notes This section contains the clinical notes associated to the Encounter. Date/Time Encounter Note(s) Provider Source Nov 03, 2024 02:14 PM ADDENDUM: LOCAL TITLE: Addendum STANDARD TITLE: ADDENDUM DATE OF NOTE: NOV 03, 2024@14:14:39 ENTRY DATE: NOV 03, 2024@14:14:40 AUTHOR: NINA CHO EXP COSIGNER: URGENCY: STATUS: COMPLETED Will ask MSA to please schedule patient for: [X] SPR [facility] PHARM PACT 1 RTC order placed. Appointent Length: 30 minutes. Thank you! /jac/ Nina Cho PharmD Clinical Pharmacy Practitioner Signed: 11/03/2024 14:15 Receipt Acknowledged By: 11/05/2024 09:02 /jac/ LISA MAGANA ADVANCE BARREL DRUM CUTTER == --- Original Document --- 11/03/24 PHARMACY CLINIC NOTE: TEODORA MAK is a 69 yo MALE referred to pharmacy clinic for weight management. HPI: S: referred to pharmacy clinic for weight management. He notes he is s/p gastric bypass ~2004; lost a lot of weight following that but lost his job, became sedentary and gained weight; has not been able to lose it. Followed by pain management clinic. At time of last visit, referred to MOVE program; however consult was d/c'd due to not being able to reach pt. He notes that he did not receive attempts to schedule. BP: 114/72 (08/21/2024 13:27) HR: 86 (08/21/2024 13:27) HT: 72 in [182.9 cm] (11/01/2022 09:14) WT: 285.2 lb [129.36 kg] (08/21/2024 13:27) BMI: BMI: 38.8 Weight: 285.2 lb [129.36 kg] (08/21/2024 13:27) BMI: 38.8 Diet: B: SEC sandwich or [...] syndrome of right shoulder region 2. Hyperlipidemia ([facility] [id number]) 3. Impaired Fasting Glucose ([facility] [id number]) 4. Erectile Dysfunction ([facility] [id number]) 5. Tinnitus 6. Hearing loss 7. Exposure to Potentially Hazardous Substance ([facility] [id number]) 8. Syncope and collapse 9. Low back [...] EVERY 12 HOURS Indication: FOR PAIN 3) PREGABALIN 300MG ORAL CAP TAKE ONE CAPSULE BY MOUTH TWICE ACTIVE DAILY Indication: FOR PAIN Active Non-VA Medications Status == 1) Non-VA ACETAMINOPHEN 325MG TAB 1300MG BY MOUTH THREE TIMES ACTIVE DAILY NEEDED 2) Non-VA ALFUZOSIN HCL 10MG SA TAB 10MG BY MOUTH DAILY ACTIVE 3) Non-VA TADALAFIL 5MG TAB 5MG BY MOUTH DAILY ACTIVE HEMOGLOBIN A1C TREND Collection DT Spec HGBA1c [...] to MOVE program; prefers L2 self-guided program. Will resubmit consult. Discussed pharmacologic options: Orlistat: limited potential for weight loss; r/o GI ADRs: Qysmia: consider Contrave: avoid d/t buprenorphine GLP-1 agonist: has 3 weight related comorbidities; however, BMI <40 so does not meet [place] Scar[place] Resource [place] guidelines at [place] [facility] Will f/u in 8 weeks review MOVE program and discuss medication options. Follow-up: 8 weeks Time Spent: 15 minutes PBM PharmD Pharmacotherapy Rem V12: PHARMACIST INTERVENTIONS: OBESITY/WEIGHT MANAGEMENT Medication monitoring, no dosage change required, continue to monitor and assess Medication reconciliation (changes to active VA and non-VA medication lists to reconcile differences) No changes to medication lists made (medication review completed, no discrepancies identified) /jac/ Nina Cho PharmD Clinical Pharmacy Practitioner Signed: 11/03/2024 14:14 11/03/2024 ADDENDUM STATUS: COMPLETED THIS INJECTION MOLDING ENGINEER WAS UNABLE TO REACH TO SCHEDULE VVC FOLLOW UP /tisha MAGANA ADVANCE BARREL DRUM CUTTER Signed: 11/03/2024 14:22 11/05/2024 ADDENDUM STATUS: COMPLETED THIS INJECTION MOLDING ENGINEER SPOKE w/ AND IS BOOKE FOR VVC ON 01/05/25 LINK and LETTER SENT /tisha MAGANA ADVANCE BARREL DRUM CUTTER Signed: 11/05/2024 09:01 NINA CHO Nov 03, 2024 01:53 PM PHARMACY OUTPATIEN T NOTE: LOCAL TITLE: PHARMACY CLINIC NOTE STANDARD TITLE: PHARMACY OUTPATIENT NOTE DATE OF NOTE: NOV 03, 2024@13:53 ENTRY DATE: NOV 03, 2024@13:53:04 AUTHOR: NINA CHO EXP COSIGNER: URGENCY: STATUS: COMPLETED PHARMACY CLINIC NOTE Has ADDENDA OBDULIOTEODORA AVILA is a 69 yo MALE referred to pharmacy clinic for weight management. HPI: S: [place] referred to pharmacy clinic for weight management. He notes he is s/p gastric bypass ~2004; lost a lot of weight following that but lost his job, became sedentary and gained weight; has not been able to lose it. Followed by pain management clinic. At time of last visit, referred to MOVE program; however consult was d/c'd due to not being able to reach pt. He notes that he did not receive attempts to schedule. BP: 114/72 (08/21/2024 13:27) HR: 86 (08/21/2024 13:27) HT: 72 in [182.9 cm] (11/01/2022 09:14) WT: 285.2 lb [129.36 kg] (08/21/2024 13:27) BMI: BMI: 38.8 Weight: 285.2 lb [129.36 kg] (08/21/2024 13:27) BMI: 38.8 Diet: B: SEC sandwich or [...] syndrome of right shoulder region 2. Hyperlipidemia ([facility] [id number]) 3. Impaired Fasting Glucose ([facility] [id number]) 4. Erectile Dysfunction ([facility] [id number]) 5. Tinnitus 6. Hearing loss 7. Exposure to Potentially Hazardous Substance ([facility] [id number]) 8. Syncope and collapse 9. Low back [...] EVERY 12 HOURS Indication: FOR PAIN 3) PREGABALIN 300MG ORAL CAP TAKE ONE CAPSULE BY MOUTH TWICE ACTIVE DAILY Indication: FOR PAIN Active Non-VA Medications Status == 1) Non-VA ACETAMINOPHEN 325MG TAB 1300MG BY MOUTH THREE TIMES ACTIVE DAILY NEEDED 2) Non-VA ALFUZOSIN HCL 10MG SA TAB 10MG BY MOUTH DAILY ACTIVE 3) Non-VA TADALAFIL 5MG TAB 5MG BY MOUTH DAILY ACTIVE HEMOGLOBIN A1C TREND Collection DT Spec HGBA1c [...] to MOVE program; prefers L2 self-guided program. Will resubmit consult. Discussed pharmacologic options: Orlistat: limited potential for weight loss; r/o GI ADRs: Qysmia: consider Contrave: avoid d/t buprenorphine GLP-1 agonist: has 3 weight related comorbidities; however, BMI <40 so does not meet [place] Scarce Resource Allocation guidelines at [facility] Will f/u in 8 weeks review MOVE program and discuss medication options. Follow-up: 8 weeks Time Spent: 15 minutes PBM PharmD Pharmacotherapy Rem V12: PHARMACIST INTERVENTIONS: OBESITY/WEIGHT MANAGEMENT Medication monitoring, no dosage change required, continue to monitor and assess Medication reconciliation (changes to active VA and non-VA medication lists to reconcile differences) No changes to medication lists made (medication review completed, no discrepancies identified) /jac/ Nina Cho PharmD Clinical Pharmacy Practitioner Signed: 11/03/2024 14:14 11/03/2024 ADDENDUM STATUS: COMPLETED Will ask MSA to please schedule patient for: [X] SPR VVC PHARM PACT 1 RTC order placed. Appointent Length: 30 minutes. Thank you! /tisha Cho PharmD Clinical Pharmacy Practitioner Signed: 11/03/2024 14:15 Receipt Acknowledged By: 11/05/2024 09:02 /jac/ LISA MAGANA ADVANCE BARREL DRUM CUTTER 11/03/2024 ADDENDUM STATUS: COMPLETED THIS INJECTION MOLDING ENGINEER WAS UNABLE TO REACH TO SCHEDULE VVC FOLLOW UP /tisha MAGANA ADVANCE BARREL DRUM CUTTER Signed: 11/03/2024 14:22 11/05/2024 ADDENDUM STATUS: COMPLETED THIS INJECTION MOLDING ENGINEER SPOKE w/ AND IS BOOKE FOR VVC ON 01/05/25 LINK and LETTER SENT /tisha MAGANA ADVANCE BARREL DRUM CUTTER Signed: 11/05/2024 09:01 NINA CHO
--- OUTSIDE RECORDS SUMMARY | 2024-11-25 05:00 | XMS_ITS ---
Author Name [place] Address [address] [place] [address] Care Team Providers Care Stick Roller Name Role Phone FRANKY CHIN Primary Care [...] ANDERSENT ION [id number] 1 May 28, 2017 [id number] [phone] Weston MAK PATIENT MEDICARE (WNR) MEDICARE (M) PART A Mar 28, 2021 PART A [id number] [id number] [phone] Weston MAK PATIENT MEDICARE (WNR) MEDICARE (M) PART B Mar 28, 2021 PART B [id number] [id number] Weston MAK PATIENT MEDICARE (WNR) MEDICARE (M) PART A Mar 28, 2021 PART A [id number] [id number] OBDULIO,W ILLIAM PATIENT MEDICARE (WNR) MEDICARE (M) PART B Mar 28, 2021 PART B [id number] [id number] OBDULIO,W ILLIAM PATIENT OPTUM RX PRESCRIPT ION RX May 28, 2022 THPRX [id number] [phone] OBDULIO,W ILLIAM PATIENT OPTUM RX PRESCRIPT ION RX May 28, 2022 THPRX [id number] [phone] OBDULIO,W ILLIAM PATIENT OPTUM RX PRESCRIPT ION RX Sep 11, 2018 THPRX [id number] OBDULIO,W ILLIAM PATIENT [facility] [id number] [phone] OBDULIO,W ILLIAM PATIENT [facility] May 28, 2017 [facility] [id number] [phone] OBDULIO,W ILLIAM PATIENT [facility](WNR) [facility] TON RAFAEL May 28, 2017 [id number] OBDULIO,W ILLIAM PATIENT [facility] (R) [facility]WN [facility] May 28, 2017 (R) [id number] OBDULIO,W ILLIAM PATIENT [facility]) [facility] [place] A[facility] Sep 11, 2018 [id number] OBDULIO,W ILLIAM PATIENT Selected Encounter This section includes the information on record at [place] for the Encounter. Date/Time Encounter Type Encounter Description Reason Provider Source Nov 25, 2024 09:00 AM HEARING AID REPAIR/MODIFYIN G AUDIOLOGY ICD-10-CM Z46.1 Encounter for fitting and adjustment of hearing aid GRETCHEN GRANADOS Encounter Template Text not used by VA Assessments - Encounter Diagnoses This section includes the primary and secondary diagnoses documented for the Encounter. Date/Time Primary/Secondary Diagnosis Diagnosis Name Provider Source Nov 25, 2024 11:52 AM PRIMARY Encounter for fitting and adjustment of hearing aid GRETCHEN [facility]RA[facility]DOS [facility] Nov 25, 2024 11:52 AM SECONDARY Sensorineural hearing loss, bilateral GRETCHEN GRANADOS [facility] Plan of Treatment: Future Appointments (+ 6 months) and Future Tests (+/- 45 days) The Plan of Treatment section includes future care activities for the patient from all [place] [facility] This section includes future appointments and future orders which are active, pending or scheduled. Future Appointments This section includes appointments that were scheduled to occur 6 months from the date of the Encounter, up to a maximum of 20 appointments. The data comes from all [place] treatment facilities. Appointment Date/Time Appointment Type Appointme nt Facility Name Jan 05, 2025 10:30 AM [facility] Jan 13, 2025 08:30 AM AMBULATORY - MEDICINE [place] [facility] Jan 13, 2025 12:00 PM AMBULATORY - MEDICINE [place] [facility] Jan 14, 2025 10:30 AM AMBULATORY - MEDICINE [facility] Jan 14, 2025 11:00 AM AMBULATORY - MEDICINE [facility] Jan 23, 2025 08:30 AM AMBULATORY - MEDICINE [place] [facility] Feb 06, 2025 02:00 PM AMBULATORY - MEDICINE [place] [facility] Mar 02, 2025 11:30 AM AMBULATORY - [facility] Social History: Smoking Status (Most current) and Tobacco Use (All prior to encounter date) This section includes the most current, and the historical, smoking and tobacco- related health factors from the [place] facility where the Encounter took place. Current Smoking Status This section includes the most current smoking, or tobacco-related health factor, from the [place] facility where the Encounter took place. Date/Time Current Smoking Status Comment Kaycee bliss Jun 30, 2024 10:30 AM VA-TOBACCO USE FOR HIPOLITO CIGARETTES [facility] Tobacco Use History This section includes a history of the smoking, or tobacco-related health factors, that were collected on or before the date of the Encounter. The data comes from the [place] facility where the Encounter took place. Date/Time Smoking Status/Tobacco Use Comment F acility Jun 30, 2024 10:30 AM VA-TOBACCO USE FOR HIPOLITO CIGARETTES [facility] Advance Directives: All historical and current Section Date Range: From patient's date of to the date document was created. This section includes ALL of a patient's completed or amended [place] Advance and Rescinded Directives. The entries below indicate that a directive exists for the patient, but an actual copy is not included with this document. The data comes from all [place] facilities. Date Advance Directives Provider Source Dec 02, 2020 ADVANCE DIRECTIVE ZAIRE COMER [facility] IELD Encounter Notes: All associated encounter notes This section contains the clinical notes associated to the Encounter. Date/Time Encounter Note(s) Provider Source Nov 25, 2024 08:55 AM AUDIOLOGY E & M NO TE: [facility] TITLE: AUDIOLOGY CLINIC STANDARD TITLE: AUDIOLOGY E & M NOTE DATE OF NOTE: NOV 25, 2024@08:55 ENTRY DATE: NOV 25, 2024@08:55:33 AUTHOR: GRETCHEN GRANADOS EXP COSIGNER: URGENCY: STATUS: COMPLETED has a history of bilateral sensorineural hearing loss. He was seen on 11-25-24 for hearing aid follow up regarding his Melanie BTEs after a late check in. He states he is not sure if the right aid is working and would like 6 earmolds re-tubed (4 left and 2 right) All six were retubed and cut to the appropriate length. Sound check was positive for the left aid. The right [place] cover and hook were replaced, however the aid remained weak. It was sent in, will ship to via [facility]. [place] will contact the clinic as needed. /jac/ Eun DA SILVA, [facility]-A STAFF JACKET CHANGER Signed: 11/25/2024 11:54 GRETCHEN GRANADOS [facility]
--- OUTSIDE RECORDS SUMMARY | 2024-11-25 07:30 | XMS_ITS | Encounter Summary ---
Author Name [facility] [place] Address [address] [place] [address] Care Team Providers Care Awning Hanger Name Role Phone FRANKY CHIN Primary Care Provider Unavailroberth lamar Insurance Providers: [...] EMILY STEELE [id number] 1 May 28, 2017 [id number] [place] MAK PATIENT MEDICARE (WNR) MEDICARE (M) PART A Mar 28, 2021 PART A [id number] QV20 [phone] Weston MAK PATIENT MEDICARE (WNR) MEDICARE (M) PART B Mar 28, 2021 PART B [id number] [id number] [place] MAK PATIENT MEDICARE (WNR) MEDICARE (M) PART A Mar 28, 2021 PART A [id number] [id number] OBDULIO,W ILLIAM PATIENT MEDICARE (WNR) MEDICARE (M) PART B Mar 28, 2021 PART B [id number] QV20 OBDULIO,W ILLIAM PATIENT OPTUM RX PRESCRIPT ION RX May 28, 2022 THPRX [id number] OBDULIO,W ILLIAM PATIENT OPTUM RX PRESCRIPT ION RX May 28, 2022 THPRX [id number] OBDULIO,W ILLIAM PATIENT OPTUM RX PRESCRIPT ION RX Sep 11, 2018 THPRX [id number] [phone] OBDULIO,W ILLIAM PATIENT [facility] [id number] OBDULIO,W ILLIAM PATIENT [facility] May [facility], 2017 [email or web address] [id number] OBDULIO,W ILLIAM PATIENT [facility](WNR) [email or web address] - [facility]ON RAFAEL May 28, 2017 [id number] [phone] OBDULIO,W ILLIAM PATIENT [facility] (R) [place] (WN R) May 28, 2017 (WNR) [id number] [phone] OBDULIO,W ILLIAM PATIENT [facility] Sep 11, 2018 [id number] [phone] OBDULIO,W ILLIAM PATIENT Selected Encounter This section includes the information on record at [place] for the Encounter. Date/Time Encounter Type Encounter Description Reason Provider Source Nov 25, 2024 11:30 AM MTMS BY PHARM TIERNEY 15 MIN PAIN CLINIC ICD-10-CM M54.50 Low back pain, unspecified TERI MCNAMARA IHSergey Encounter Template Text not used by VA Assessments - Encounter Diagnoses This section includes the primary and secondary diagnoses documented for the Encounter. Date/Time Primary/Secondary Diagnosis Diagnosis Name Provider Source Nov 25, 2024 03:46 PM PRIMARY Low back pain, unspecified TERI MCNAMARA [place] [facility] [facility] Plan of Treatment: Future Appointments (+ 6 months) and Future Tests (+/- 45 days) The Plan of Treatment section includes future care activities for the patient from all [place] [facility]. This section includes future appointments and future [...] 05, 2025 10:30 AM AMBULATORY - MEDICINE [place] [facility] [place] [facility] Jan 13, 2025 08:30 AM AMBULATORY - MEDICINE [place] [facility] [place] [facility] Jan 13, 2025 12:00 PM AMBULATORY - MEDICINE [place] [facility] [place] [facility] Jan 14, 2025 10:30 AM AMBULATORY - MEDICINE [facility] Jan 14, 2025 11:00 AM AMBULATORY - MEDICINE [facility] Jan 23, 2025 08:30 AM AMBULATORY - MEDICINE [place] [facility] [place] [facility] Feb 06, 2025 02:00 PM AMBULATORY - MEDICINE [place] [facility] [place] [facility] Mar 02, 2025 11:30 AM AMBULATORY - MEDICINE [place] [place] [facility] Social History: Smoking Status (Most current) and Tobacco Use (All prior to encounter date) This section includes the most current, and the historical, smoking and tobacco- related health factors from the [place] facility where the Encounter took place. Current Smoking Status This section includes the most current smoking, or tobacco-related health factor, from the [place] facility where the Encounter took place. Date/Time Current Smoking Status Comment Facil ity Jun 30, 2024 10:30 AM VA-TOBACCO USE FOR HIPOLITO CIGARETTES [place] [facility] Tobacco Use History This section includes a history of the smoking, or tobacco-related health factors, that were collected on or before the date of the Encounter. The data comes from the [place] facility where the Encounter took place. Date/Time Smoking Status/Tobacco Use Comment F acility Jun 30, 2024 10:30 AM VA-TOBACCO USE FOR HIPOLITO CIGARETTES [facility] Advance Directives: All historical and current Section Date Range: From patient's date of to the date document was created. This section includes ALL of a patient's completed or amended [place] Advance and Rescinded Directives. The entries below indicate that a directive exists for the patient, but an actual copy is not included with this document. The data comes from all [place] facilities. Date Advance Directives Provider Source Dec 02, 2020 ADVANCE DIRECTIVE ZAIRE COMER [facility] IE Encounter Notes: All associated encounter notes This section contains the clinical notes associated to the Encounter. Date/Time Encounter Note(s) Provider Source Nov 25, 2024 03:54 PM ACCOUNTING OF DISCLOSURES NOTE: LOCAL TITLE: STATE PRESCRIPTION DRUG MONITORING PROGRAM STANDARD TITLE: ACCOUNTING OF DISCLOSURES NOTE DATE OF NOTE: NOV 25, 2024@15:54:52 ENTRY DATE: NOV 25, 2024@15:54:52 AUTHOR: TERI MCNAMARA EXP COSIGNER: URGENCY: STATUS: COMPLETED This PDMP query was submitted by Teri Mcnamara. The clinical justification for this PDMP query is to review controlled substances prescribed outside of the [place], and any additional information that may become available, as an important component of standard clinical care, and in accordance with [facility] policy. Patient information was shared with the PDMP [place]. No prescription(s) for controlled substances outside the [place] were found in the last 90 days. /jac/ TERI MCNAMARA CLINICAL PHARMACIST PRACTITIONER, PAIN Signed: 11/25/2024 15:55 TERI MCNAMARA [facility] Nov 25, 2024 10:29 AM PAIN MEDICINE OUTPATIENT NOTE: LOCAL TITLE: PAIN CLINIC NOTE STANDARD TITLE: PAIN MEDICINE OUTPATIENT NOTE DATE OF NOTE: NOV 25, 2024@10:29 ENTRY DATE: NOV 25, 2024@10:29:40 AUTHOR: TERI MCNAMARA EXP COSIGNER: URGENCY: STATUS: COMPLETED TEODORA Da Silva is 69 year old WHITE MALE with a history of chronic low back pain, who presents to pharmacy pain management clinic today for routine follow- up appointment. was last seen in clinic on 09/26/24; no changes made at that encounter. SUBJECTIVE/OBJECTIVE: TEODORA Da Silva presents to clinic in no apparent distress. [place] reports no change in pain location or quality since last encounter. Pain in back is the most bothersome. Pain severity increases throughout the day, results in [place] leaning forward. [place] reports he is giving more consideration to procedural intervention for back pain as medications have only been marginally helpful. He has also recently seen a Non-VA Ortho provider (private insurance) for his right knee pain. EVALUATION OF PAIN RELATED MEDICATIONS: ---- A focused pain related medication reconciliation was performed. 1. Belbuca 300mcg BID - reports taking BID - No changes to sedation, fatigue, or constipation since last encounter. No reports of oral irritation 2. Diclofenac Epolamine 1.3% patch BID PRN 3. Pregabalin 300mg BID - confirms taking BID 4. Non-VA Acetaminophen 325mg TID PRN EVALUATION OF NON-PHARM MOADLITIES: --------- PAIN INTERVENTIONS/INJECTIONS: PM&R follow-up with Dr. Champion on 01/05/25 PHYSICAL THERAPY: Referred to [facility] PT by IPT OTHER: Seen by IPT 06/30/24 EVALUATION OF SOCIAL HISTORY: -- TOBACCO USE: Denied. Quit ~30 yrs ago ALCOHOL USE: Socially when at [employer]; 1-2 beers, 1-2x per week CANNABIS USE: topical CBD oil for back pain OTHER ILLICIT SUBSTANCES: Denied. RISK MITIGATION: LONG-TERM CONSENT: Reviewed and completed 12/14/23 NALOXONE: Education and dispensing completed 06/05/24. asks to have second kit to keep [place] hand [place] camp [place] ( splits time between home/camp). UDS MONITORING: Completed 12/14/23; results salgado negative PDMP: Completed 11/07/24 C-SSRS: Completed on 08/24/23 at initial consult; [place] screened negative DIPHENHYDRAMINE Active and Recently Outpatient [...] Indication: FOR PAIN Active Non-VA Medications Status 1) Non-VA ACETAMINOPHEN 325MG TAB 1300MG BY MOUTH THREE TIMES ACTIVE DAILY NEEDED 2) Non-VA ALFUZOSIN HCL 10MG SA TAB 10MG BY MOUTH DAILY ACTIVE 3) Non-VA TADALAFIL 5MG TAB 5MG BY MOUTH DAILY ACTIVE 6 Total Medications Active problems - Computerized Problem List is the source for the followin. Impingement syndrome of right shoulder region 2. Hyperlipidemia ([facility] [id number]) 3. Impaired Fasting Glucose ([facility] [id number]) 4. Erectile Dysfunction ([facility] [id number]) 5. Tinnitus 6. Hearing loss 7. Exposure to Potentially Hazardous Substance ([facility] [id number]) 8. Syncope and collapse 9. Low back [...] Morbid obesity 22. History of tobacco use ASSESSMENT: Mr. Mak is a 69-year-old male with a history of chronic low back pain s/p multiple surgeries to cervical and lumbar spine. also followed by Non-VA providers for chronic pain related interventions. [place]'s pain presentation appears stable with last encounter. No change to pain presentation since last encounter. Thus far, adjustments to medication regimen have only provided minimal relief. Still ability to titration Belbuca films. This has been previously offered to [place] and reviewed today. [place] was agreeable to increase 450mcg BID and monitor for any improvements in pain condition. If no improvement at follow-up with decrease back to Belbuca 300mcg and consider alternative options. [place] will be seen by Dr. Champion in PM&R clinic on 01/05/25 which may offer additional recommendations. A shared decision-making approach was used in the development of this plan, involving the [place] and clinician present. The was provided the opportunity express questions or concerns, and the plan was adjusted as needed to address these concerns. verbalized understanding of the plan, including possible known risks and benefits, and had no additional questions. PLAN: 1. Start Belbuca 450mcg BID 2. Continue Pregabalin 300mg BID 3. F/u with PM&R on 01/05/25 F/U via telephone in 6 weeks; Pt instructed to contact clinic with any questions or concerns prior to next encounter. Risk mitigation tools: 1. Long-Term Consent for Opioid Therapy completed 12/14/23 2. Naloxone kit prescribing and education on its use and s/sx of OIRD completed 06/05/24 3. UDS monitoring completed 12/14/23 4. PDMP and a State Prescription Drug Monitoring Note completed today Encounter Time: 30 minutes /jac/ TERI MCNAMARA CLINICAL PHARMACIST PRACTITIONER, PAIN Signed: 11/25/2024 16:03 TERI MCNAMARA [place] [facility]
--- OUTSIDE RECORDS SUMMARY | 2025-01-05 06:30 | XMS_ITS | Encounter Summary ---
Author Name [facility] [place] [facility] [place] [facility] [place] [facility] [place] Address [address] [place] [id number] Care Team Providers Care Certified Medical Asst Name Role Phone FRANKY CHIN Primary Care [...] EMILY STEELE [id number] 1 May 28, 2017 [id number] [phone] Weston MAK PATIENT MEDICARE (WNR) MEDICARE (M) PART A Mar 28, 2021 PART A [id number] Weston MAK PATIENT MEDICARE (WNR) MEDICARE (M) PART B Mar 28, 2021 PART B [id number] [phone] Weston MAK PATIENT MEDICARE (WNR) MEDICARE (M) PART A Mar 28, 2021 PART A [id number] [phone] Weston MAK ILLBIJAL PATIENT MEDICARE (WNR) MEDICARE (M) PART B Mar 28, 2021 PART B [id number] [place] GUYM PATIENT OPTUM RX PRESCRIPT ION RX May 28, 2022 THPRX [id number] OBDULIO,W ILLIAM PATIENT OPTUM RX PRESCRIPT ION RX May 28, 2022 THPRX [id number] [phone] OBDULIO,W ILLIAM PATIENT OPTUM RX PRESCRIPT ION RX Sep 11, 2018 THPRX [id number] OBDULIO,W ILLIAM PATIENT [facility] PLAN [facility] E 2019 [id number] [phone] OBDULIO,W ILLIAM PATIENT [facility] HEALTH PLAN [facility] May 28, 2017 [facility] [id number] OBDULIO,W ILLIAM PATIENT [facility] PLAN(WNR) [facility] T[facility] RAFAEL May 28, 2017 [id number] [phone] OBDULIO,W ILLIAKaren PATIENT [facility] (R[facility] May 28, 2017 (WNR) [id number] O[place]ULI[place] GUY PATIENT [facility] Sep 11, 2018 [id number] OBDULI[place] GUYM PATIENT Selected Encounter This section includes the information on record at [place] for the Encounter. Date/Time Encounter Type Encounter Description Reason Provider Source Jan 05, 2025 10:30 AM MTMS BY PHARM [facility]ERNEY 15 MIN CLINICAL PHARMACY ICD-10-CM E66.01 Morbid (severe) obesity due to excess calories NINA CHO IHSergey Encounter Template Text not used by [place] Assessments - Encounter Diagnoses This section includes the primary and secondary diagnoses documented for the Encounter. Date/Time Primary/Secondary Diagnosis Diagnosis Name Provider Source Jan 05, 2025 11:01 AM PRIMARY Morbid (severe) obesity due to excess calories NINA CHO Plan of Treatment: Future Appointments (+ 6 months) and Future Tests (+/- 45 days) The Plan of Treatment section includes future care activities for the patient [facility] [place] [facility] This section includes future appointments and future orders which are active, pending or scheduled. Future Appointments This section includes appointments that were scheduled to occur 6 months from the date of the Encounter, up to a maximum of 20 appointments. The data comes from all [place] treatment facilities. Appointment Date/Time Appointment Type Appointme nt Facility Name Jan 13, 2025 08:30 AM AMBULATORY - MEDICINE [place] [facility] Jan 13, 2025 12:00 PM AMBULATORY MEDICINE [facility] Jan 14, 2025 10:30 AM AMBULATORY - MEDICINE [facility] Jan 14, 2025 11:00 AM AMBULATORY - MEDICINE [facility] Jan 23, 2025 08:30 AM AMBULATORY MEDICINE [facility] Feb 06, 2025 02:00 PM AMBULATORY - MEDICINE [facility] Mar 02, 2025 11:30 AM AMBULATORY - MEDICINE [facility] Lab Results: +/- 30 days of the encounter This section includes the Chemistry and Hematology Lab Results on record with [place] for the patient. Radiology Reports and Pathology Reports are provided separately, in subsequent sections. Lab Results This section contains the Chemistry/Hematology Results that were resulted 30 days before or 30 daysafter the date of the Encounter. Date/Time Source Result Type Result - Unit Interpretation Reference Range Specimen Type Comment Jan 14, 2025 11:30 AM [place] [facility] ALCOHOL, ETHYL URINE PANEL URINE Specimen Typ [...] Ordering Provider: HEMAL MCNAMARA Report Released Date/Time: Jan 13, 2025 08:58 AM Reporting Lab: [address] [address] Performing Lab: [address] [address] ALCOHOL, ETHYL URINE NONE-DETECTED None- Detected, cutoff = 10 mg/dL PH, DERECK 5.1 [pH] 5.0-8.0 CREATININE, DERECK 74.72 mg/dL 63-166 SP.GRAVITY, DERECK 1.008 1.005-1.030 Jan 14, 2025 11:30 AM [facility] AMPHETAMINES SCREEN PANEL URINE Specimen Type [...] Ordering Provider: HEMAL MCNAMARA Report Released Date/Time: Jan 13, 2025 08:58 AM Reporting Lab: [address] [address] Performing Lab: [address] [address] AMPHETAMINES SCREEN NONE-DETECTED None-D etected, Cutoff = 1000 ng/mL PH, DERECK 5.1 [pH] 5.0-8.0 CREATININE, DERECK 74.72 mg/dL 63-166 SP.GRAVITY, DERECK 1.008 1.005-1.030 Jan 14, 2025 11:30 AM [facility] BENZODIAZEPINES SCREEN PANEL URINE Specimen T [...] Ordering Provider: HEMAL MCNAMARA Report Released Date/Time: Jan 13, 2025 08:58 AM Reporting Lab: [address] [address] Performing Lab: [address] [address] BENZODIAZEPINES SCREEN NONE-DETECTED Non e-Detected, Cutoff = 200 ng/mL PH, DERECK 5.1 [pH] 5.0-8.0 CREATININE, DERECK 74.72 mg/dL 63-166 SP.GRAVITY, DERECK 1.008 1.005-1.030 Jan 14, 2025 11:30 AM [facility] FENTANYL SCREEN PANEL URINE Specimen Type: [...] 10 and 11 may have been adulterated. Fentanyl confirmation not sent by lab. Ordering Provider: HEMAL MCNAMARA Report Released Date/Time: Jan 13, 2025 08:58 AM Reporting Lab: [address] [address] Performing Lab: [address] [address] FENTANYL SCREEN NONE-DETECTED None-Detec bryon, Cutoff = 1.00 ng/mL PH, DERECK 5.1 [pH] 5.0-8.0 CREATININE, DERECK 74.95 mg/dL 63-166 SP.GRAVITY, DERECK 1.008 1.005-1.030 Jan 14, 2025 11:30 AM [facility] BUPRENORPHINE SCREEN PANEL URINE Specimen Typ [...] Ordering Provider: HEMAL MCNAMARA Report Released Date/Time: Jan 13, 2025 08:58 AM Reporting Lab: [address] [address] Performing Lab: [address] [address] BUPRENORPHINE SCREEN NONE-DETECTED None Detected, Cutoff = 5 ng/mL PH, DERECK 5.1 [pH] 5.0-8.0 CREATININE, DERECK 74.72 mg/dL 63-166 SP.GRAVITY, DERECK 1.008 1.005-1.030 Jan 14, 2025 11:30 AM [facility] COCAINE SCREEN PANEL URINE Specimen Type: [...] Ordering Provider: HEMAL MCNAMARA Report Released Date/Time: Jan 13, 2025 08:58 AM Reporting Lab: [address] [address] Performing Lab: [address] [address] COCAINE SCREEN NONE-DETECTED None-Detect ed,Cutoff = 300 ng/mL PH, DERECK 5.1 [pH] 5.0-8.0 CREATININE, DERECK 74.72 mg/dL 63-166 SP.GRAVITY, DERECK 1.008 1.005-1.030 Jan 14, 2025 11:30 AM [facility] METHADONE SCREEN PANEL URINE Specimen Type: U RINE [...] Ordering Provider: HEMAL MCNAMARA Report Released Date/Time: Jan 13, 2025 08:58 AM Reporting Lab: [address] [address] Performing Lab: [address] [address] PH, DERECK 5.1 [pH] 5.0-8.0 CREATININE, DERECK 74.72 mg/dL 63-166 SP.GRAVITY, DERECK 1.008 1.005-1.030 METHADONE SCREEN NONE-DETECTED None-Dete cted,Cutoff = 300 ng/mL Jan 14, 2025 11:30 AM [facility] CANNABINOIDS SCREEN PANEL URINE Specimen Type [...] Ordering Provider: HEMAL MCNAMARA Report Released Date/Time: Jan 13, 2025 08:58 AM Reporting Lab: [address] [address] Performing Lab: [address] [address] CANNABINOIDS SCREEN NONE-DETECTED None-D etected,Cutoff = 50 ng/mL PH, DERECK 5.1 [pH] 5.0-8.0 CREATININE, DERECK 74.72 mg/dL 63-166 SP.GRAVITY, DERECK 1.008 1.005-1.030 Jan 14, 2025 11:30 AM [facility] OPIATES SCREEN PANEL URINE Specimen Type: [...] Ordering Provider: HEMAL MCNAMARA Report Released Date/Time: Jan 13, 2025 08:58 AM Reporting Lab: [address] [address] Performing Lab: [address] [address] OPIATES SCREEN NONE-DETECTED None-Detect ed, Cutoff = 300 ng/mL PH, DERECK 5.1 [pH] 5.0-8.0 CREATININE, DERECK 74.72 mg/dL 63-166 SP.GRAVITY, DEREKC 1.008 1.005-1.030 Jan 14, 2025 11:30 AM [facility] OXYCODONE SCREEN PANEL URINE Specimen Type: [...] Ordering Provider: HEMAL MCNAMARA Report Released Date/Time: Jan 13, 2025 08:58 AM Reporting Lab: [address] [address] Performing Lab: [address] [address] OXYCODONE SCREEN NONE-DETECTED None-Dete cted, Cutoff = 100 ng/mL PH, DERECK 5.1 [pH] 5.0-8.0 CREATININE, DERECK 74.72 mg/dL 63-166 SP.GRAVITY, DERECK 1.008 1.005-1.030 Social History: Smoking Status (Most current) and Tobacco Use (All prior to encounter date) This section includes the most current, and the historical, smoking and tobacco- related health factors from the [place] facility where the Encounter took place. Current Smoking Status This section includes the most current smoking, or tobacco-related health factor, from the [place] facility where the Encounter took place. Date/Time Current Smoking Status Comment Kaycee ity Nov 01, 2022 09:00 AM VA-TOBACCO QUIT 15 YRS OR MORE [facility] Tobacco Use History This section includes a history of the smoking, or tobacco-related health factors, that were collected on or before the date of the Encounter. The data comes from the [place] facility where the Encounter took place. Date/Time Smoking Status/Tobacco Use Comment F acility Nov 01, 2022 09:00 AM VA-TOBACCO QUIT 15 YRS OR MORE [facility] Nov 03, 2021 02:00 PM VA-TOBACCO NEVER USED [facility] October 19, 2020 09:00 AM VA-TOBACCO FORMER USER [facility] October 19, 2020 09:00 AM VA-TOBACCO QUIT 15 YRS OR MORE [facility] Aug 16, 2018 12:32 PM VA-TOBACCO NEVER USED [facility] Aug 16, 2017 02:32 PM QUIT TOBACCO USE > 7 YEARS AGO stopped smoking over 25 years ago [facility] Aug 15, 2016 09:59 AM QUIT TOBACCO USE > 7 YEARS AGO quit 25 years ago [facility] Aug 13, 2015 02:47 PM QUIT TOBACCO USE > 7 YEARS AGO smoked cig, ~20/day, quit 20 yrs ago [facility] Aug 10, 2014 01:28 PM QUIT TOBACCO USE > 7 YEARS AGO quit 20+ yrs ago [facility] Advance Directives: All historical and current Section Date Range: From patient's date of to the date document was created. This section includes ALL of a patient's completed or amended [place] Advance and Rescinded Directives. The entries below indicate that a directive exists for the patient, but an actual copy is not included with this document. The data comes from all [facility]. Date Advance Directives Provider Source Dec 02, 2020 ADVANCE DIRECTIVE SOULEYMANEZAIRE RENUKA [facility] [place] Encounter Notes: All associated encounter notes This section contains the clinical notes associated to the Encounter. Date/Time Encounter Note(s) Provider Source Jan 05, 2025 10:34 AM PHARMACY OUTPATIEN T NOTE: LOCAL TITLE: PHARMACY CLINIC NOTE STANDARD TITLE: PHARMACY OUTPATIENT NOTE DATE OF NOTE: JAN 05, 2025@10:34 ENTRY DATE: JAN 05, 2025@10:34:08 AUTHOR: NINA CHO COSIGNER: URGENCY: STATUS: COMPLETED TEODORA MAK is a 69 yo MALE referred to pharmacy clinic for weight management. HPI: S: [place] referred to pharmacy clinic for weight management. He notes he is s/p gastric bypass ~2004; lost a lot of weight following that but lost his job, became sedentary and gained weight; has not been able to lose it. Followed by pain management clinic. At time of last visit, referred back to MOVE program and has been doing well. Notes ~5lb weight loss but frustrated with slow pace of this. Reports waist circumference >40. BP: 114/72 (08/21/2024 13:27) HR: 86 (08/21/2024 13:27) HT: 72 in [182.9 cm] (11/01/2022 09:14) WT: 285.2 lb [129.36 kg] (08/21/2024 13:27) BMI: BMI: 38.8 Weight: 285.2 lb [129.36 kg] (08/21/2024 13:27) BMI: 38.8 278lb (01/05/25) Diet: B: fruit, WW bread (1) or bagel (1/2) + butter or PB L: varies; salad D: varies; grills protein, salad Snacks: popcorn, fruit Drinks: diet caffeine free soda, celcius, water Social: Alcohol: social; 1-2 drinks if out Tobacco: denies Exercise: Walks a lot Active problems - Computerized Problem List is the source for the followin. Impingement syndrome of right shoulder region 2. Hyperlipidemia ([facility] [id number]) 3. Impaired Fasting Glucose ([facility] [id number]) 4. Erectile Dysfunction ([facility] [id number]) 5. Tinnitus 6. Hearing loss 7. Exposure to Potentially Hazardous Substance ([facility] [id number]) 8. Syncope and collapse 9. Low back [...] PREVENT STROKE/HEART ATTACK Indication: CARDIOPROTECTION 2) BUPRENORPHINE 450MCG BUCCAL FILM PLACE ONE FILM BETWEEN ACTIVE [...] 111 98 CREATININE-EGFR 08/21/24 13:32 0.77 A/P: CPRS problem list includes hx hyperlipidemia, impaired FBG, arthritis/note chronic pain as well followed by pain management; and notes waist circumference >40. Participating in MOVE program. S/p bariatric surgery but has since gained weight. Would like to pursue GLP-1 agonist. Reports followed closely by ; jocelin SI. Discussed pharmacologic options: Orlistat: limited potential for weight loss; r/o GI ADRs Qysmia: h/o MH concerns; followed regularly but does not want to exacerbate. Denies SI. Contrave: avoid d/t buprenorphine GLP-1 agonist: will place NFR Follow-up: 1 week (telephone f/u to discuss NFR outcome) If approved, prefers FTF teaching. Time Spent: 20 minutes PBM PharmD Pharmacotherapy Rem V12: PHARMACIST INTERVENTIONS: OBESITY/WEIGHT MANAGEMENT Medication monitoring, no dosage change required, continue to monitor and assess Medication reconciliation (changes to active VA and non-VA medication lists to reconcile differences) No changes to medication lists made (medication review completed, no discrepancies identified) /jac/ Nina Cho PharmD Clinical Pharmacy Practitioner Signed: 01/05/2025 11:01 NINA CHO
--- OUTSIDE RECORDS SUMMARY | 2025-01-14 06:30 | XMS_ITS | Encounter Summary ---
Author Name [facility] [place] Organization [facility] [place] Address [address] [place] [id number] Care Team Providers Care Ultrasound Technician Name Role Phone FRANKY CHIN Primary Care [...] EMILY STEELE [id number] 1 May 28, 2017 [id number] [place] MAK PATIENT MEDICARE (WNR) MEDICARE (M) PART A Mar 28, 2021 PART A [id number] [place] MAK PATIENT MEDICARE (WNR) MEDICARE (M) PART B Mar 28, 2021 PART B [id number] [id number] [place] MAK PATIENT MEDICARE (WNR) MEDICARE (M) PART A Mar 28, 2021 PART A [id number] [place] MAK ILLIAM PATIENT MEDICARE (WNR) MEDICARE (M) PART B Mar 28, 2021 PART B [id number] [id number] OBDULIO,W ILLIAM PATIENT OPTUM RX PRESCRIPT ION RX May 28, 2022 THPRX [id number] [phone] OBDULIO,W ILLIAM PATIENT OPTUM RX PRESCRIPT ION RX May 28, 2022 THPRX [id number] [phone] OBDULIO,W ILLIAM PATIENT OPTUM RX PRESCRIPT ION RX Sep 11, 2018 THPRX [id number] [phone] OBDULIO,W ILLIAM PATIENT [facility] 2019 [id number] OBDULIO,W ILLIAM PATIENT [facility] HE[facility] May 28, 2017 [facility] [id number] OBDULIO,W ILLIAM PATIENT [facility] PLAN(WNR) [facility] RAFAEL May 28, 2017 [id number] OBDULIO,W ILLIAM PATIENT [facility] (R) [place] (WN R) May 28, 2017 (WNR) [id number] OBDULIO,W ILLIAM PATIENT [facility] ([facility]) [facility] Sep 11, 2018 [id number] OBDULIO,W ILLIAM PATIENT Selected Encounter This section includes the information on record at [place] for the Encounter. Date/Time Encounter Type Encounter Description Reason Provider Source Jan 14, 2025 10:30 AM OFFICE O/P EST LOW 20 MIN PODIATRY ICD-10-CM L60.0 Ingrowing SANTOS Moore Sergey Encounter Template Text not used by [place] Assessments - Encounter Diagnoses This section includes the primary and secondary diagnoses documented for the Encounter. Date/Time Primary/Secondary Diagnosis Diagnosis Name Provider Source Jan 14, 2025 11:07 AM PRIMARY Ingrowing SANTOS Moore Jan 14, 2025 11:07 AM SECONDARY Corns and callosities SANTOS LEBRON [place] Jan 14, 2025 11:07 AM SECONDARY Pain in left toe(s) SANTOS LEBRON [place] Jan 14, 2025 11:07 AM SECONDARY Pain in right toe(s) SANTOS LEBRON [place] Jan 14, 2025 11:07 AM SECONDARY Peripheral vascular disease, unspecified SANTOS LEBRON [place] Plan of Treatment: Future Appointments (+ 6 [...] Appointment Type Appointme nt Facility Name Jan 23, 2025 08:30 AM AMBULATORY - MEDICINE [facility] [place] [facility] Feb 06, 2025 02:00 PM AMBULATORY MEDICINE [facility] [place] [facility] Mar 02, 2025 11:30 AM AMBULATORY - MEDICINE [facility] [place] [facility] Jul 16, 2025 01:30 PM AMBULATORY - MEDICINE [facility] Lab Results: +/- 30 days [...] Type Comment Jan 14, 2025 11:30 AM [facility] [place] [facility] AMPHETAMINES SCREEN PANEL URINE Specimen Type [...] Jan 13, 2025 08:58 AM Reporting Lab: [address] [address] Performing Lab: [address] [address] AMPHETAMINES SCREEN NONE-DETECTED None-D etected, Cutoff = 1000 ng/mL PH, DERECK 5.1 [pH] 5.0-8.0 CREATININE, DERECK 74.72 mg/dL 63-166 SP.GRAVITY, DERECK 1.008 1.005-1.030 Jan 14, 2025 11:30 AM [facility] ALCOHOL, ETHYL URINE PANEL URINE Specimen [...] Jan 13, 2025 08:58 AM Reporting Lab: [address] [address] Performing Lab: [address] [address] ALCOHOL, ETHYL URINE NONE-DETECTED None- Detected, cutoff = 10 mg/dL PH, DERECK 5.1 [pH] 5.0-8.0 CREATININE, DERECK 74.72 mg/dL 63-166 SP.GRAVITY, DERECK 1.008 1.005-1.030 Jan 14, 2025 11:30 AM [facility] FENTANYL SCREEN PANEL URINE Specimen Type: U RINE [...] Jan 13, 2025 08:58 AM Reporting Lab: [address] [address] Performing Lab: [address] [address] FENTANYL SCREEN NONE-DETECTED None-Detec bryon, Cutoff = 1.00 ng/mL PH, DERECK 5.1 [pH] 5.0-8.0 CREATININE, DERECK 74.95 mg/dL 63-166 SP.GRAVITY, DERECK 1.008 1.005-1.030 Jan 14, 2025 11:30 AM [facility] BENZODIAZEPINES SCREEN PANEL URINE Specimen T [...] Jan 13, 2025 08:58 AM Reporting Lab: [address] [address] Performing Lab: [address] [address] BENZODIAZEPINES SCREEN NONE-DETECTED Non e-Detected, Cutoff = 200 ng/mL PH, DERECK 5.1 [pH] 5.0-8.0 CREATININE, DERECK 74.72 mg/dL 63-166 SP.GRAVITY, DERECK 1.008 1.005-1.030 Jan 14, 2025 11:30 AM [facility] CANNABINOIDS SCREEN PANEL URINE Specimen Type [...] Jan 13, 2025 08:58 AM Reporting Lab: [address] [address] Performing Lab: [address] [address] CANNABINOIDS SCREEN NONE-DETECTED None-D etected,Cutoff = 50 ng/mL PH, DERECK 5.1 [pH] 5.0-8.0 CREATININE, DERECK 74.72 mg/dL 63-166 SP.GRAVITY, DERECK 1.008 1.005-1.030 Jan 14, 2025 11:30 AM [facility] METHADONE SCREEN PANEL URINE Specimen Type: [...] Jan 13, 2025 08:58 AM Reporting Lab: [address] [address] Performing Lab: [address] [address] PH, DERECK 5.1 [pH] 5.0-8.0 CREATININE, DERECK 74.72 mg/dL 63-166 SP.GRAVITY, DERECK 1.008 1.005-1.030 METHADONE SCREEN NONE-DETECTED None-Dete cted,Cutoff = 300 ng/mL Jan 14, 2025 11:30 AM [facility] BUPRENORPHINE SCREEN PANEL URINE Specimen Typ [...] Jan 13, 2025 08:58 AM Reporting Lab: [address] [address] Performing Lab: [address] [address] BUPRENORPHINE SCREEN NONE-DETECTED None Detected, Cutoff = 5 ng/mL PH, DERECK 5.1 [pH] 5.0-8.0 CREATININE, DERECK 74.72 mg/dL 63-166 SP.GRAVITY, DERECK 1.008 1.005-1.030 Jan 14, 2025 11:30 AM [facility] COCAINE SCREEN PANEL URINE Specimen Type: [...] Jan 13, 2025 08:58 AM Reporting Lab: [address] [address] Performing Lab: [address] [address] COCAINE SCREEN NONE-DETECTED None-Detect ed,Cutoff = 300 ng/mL PH, DERECK 5.1 [pH] 5.0-8.0 CREATININE, DERECK 74.72 mg/dL 63-166 SP.GRAVITY, DERECK 1.008 1.005-1.030 Jan 14, 2025 11:30 AM [facility] OPIATES SCREEN PANEL URINE Specimen Type: [...] Jan 13, 2025 08:58 AM Reporting Lab: [address] [address] Performing Lab: [address] [address] OPIATES SCREEN NONE-DETECTED None-Detect ed, Cutoff = 300 ng/mL PH, DERECK 5.1 [pH] 5.0-8.0 CREATININE, DERECK 74.72 mg/dL 63-166 SP.GRAVITY, DERECK 1.008 1.005-1.030 Jan 14, 2025 11:30 AM [facility] OXYCODONE SCREEN PANEL URINE Specimen Type: [...] Jan 13, 2025 08:58 AM Reporting Lab: [address] [address] Performing Lab: [address] [address] OXYCODONE SCREEN NONE-DETECTED None-Dete cted, Cutoff = [...] 01, 2022 09:00 AM VA-TOBACCO FORMER USER [place] Tobacco Use History This section includes a history of the smoking, or tobacco-related health factors, that were collected on or before the date of the Encounter. The data comes from the [place] facility where the Encounter took place. Date/Time Smoking Status/Tobacco Use Comment F acility Nov 01, 2022 09:00 AM VA-TOBACCO QUIT 15 YRS OR MORE [place] Nov 03, 2021 02:00 PM VA-TOBACCO NEVER USED [place] October 19, 2020 09:00 AM VA-TOBACCO FORMER USER [place] October 19, 2020 09:00 AM VA-TOBACCO QUIT 15 YRS OR MORE [place] Aug 16, 2018 12:32 PM VA-TOBACCO NEVER USED [place] Aug 16, 2017 02:32 PM QUIT TOBACCO USE > 7 YEARS AGO stopped smoking over 25 years ago [place] Aug 15, 2016 09:59 AM QUIT TOBACCO USE > 7 YEARS AGO quit 25 years ago [place] Aug 13, 2015 02:47 PM QUIT TOBACCO USE > 7 YEARS AGO smoked cig, ~20/day, quit 20 yrs ago [place] Aug 10, 2014 01:28 PM QUIT TOBACCO USE > 7 YEARS AGO quit 20+ yrs ago [place] Advance Directives: All historical and current Section Date Range: From patient's date of to the date document was created. This section includes ALL of a patient's completed or amended [place] Advance and Rescinded Directives. The entries below indicate that a directive exists for the patient, but an actual copy is not included with this document. The data comes from all [facility]. Date Advance Directives Provider Source Dec 02, 2020 ADVANCE DIRECTIVE SOULEYMANEZAIRE RENUKA [facility] IE Encounter Notes: All associated encounter notes This section contains the clinical notes associated to the Encounter. Date/Time Encounter Note(s) Provider Source Jan 14, 2025 07:41 AM PODIATRY NOTE: LOCAL TITLE: PODIATRY NOTE STANDARD TITLE: PODIATRY NOTE DATE OF NOTE: JAN 14, 2025@07:41 ENTRY DATE: JAN 14, 2025@07:42 AUTHOR: SANTOS LEBRON COSIGNER: URGENCY: STATUS: COMPLETED LAST SEEN FOR TREATMENT: 09/03/2024 NOTE: HAS RECEIVED BOTH COVID VACCINE DOSES AT [facility] S: Pt. is a 69 yo alert [facility] MALE who is seen for CONTINUED podiatric examination AND CARE for treatment of a presenting complaint of A painful GROWTH AND INDICATES A SMALL CIRCULAR LESION PLANTAR 5TH LEFT MET HEAD THAT IS OF RECENT ONSET (SEVERAL MONTHS) AND ACUTELY PAINFUL AT THIS TIME. HE HAS BEEN SEEN BY AN OUTSIDE TREE FELLER OPERATOR(DR. ROJAS [facility]) AND PREFERS ORTHOSES FROM AL HIS INSURANCE WILL NOT REIMBURSE FOR THEM [...] of right shoulder region 2. Hyperlipidemia (SCT [id number]) 3. Impaired Fasting Glucose ([facility] [id number]) 4. Erectile Dysfunction ([facility] [id number]) 5. Tinnitus 6. Hearing loss 7. Exposure to Potentially Hazardous Substance ([facility] [id number]) 8. Syncope and collapse 9. Low back [...] Morbid obesity 22. History of tobacco use *NOTE: REVIEWED ABOVE, NOTING NON-CONTRIBUTORY TO THE CC OTHER THAN THE PRESENCE OF MORBID OBESITY AND LOW BACK ISSUE UNDER TREATMENT WELL *NOTE: REVIEWED ABOVE NOTING NEW CONCERN- CHANGES SINCE PREVIOUS VISIT SEE # 1 ABOVE Contributing factors are: shoes and increased activity-BIOMECHANICAL [...] present physical-medical status. Protective sensation utilizing a [place] lOg monofilament is 10/10 bilateral. BIOMECHANICAL: Exam is deferred at this time BEING NON-CONTRIBUTORY TO THE CC .. A: Clinical Impression is IPK PLANTAR 5TH LEFT MET HEAD & base and medial hallux bilateral IN THE PRESENCE OF PVD AND PAIN & PLANTAR FASCIITIS PT HAS REQUESTED NEW CUSTOM ORTHOSES WHICH WERE ORDERED AND SENT TO HIS HOME-SAME PREVIOUS PAIR. P: Treatment consists of PARING-DEBRIDEMENT OF all LESIONS WITH THE RECOMENDATION OF UTILIZING A PUMICE STONE SEVERAL TIMES A WEEK TO MAINTAIN A MINIMAL BUILD-UP OF HYPERKERATOSIS IF POSSIBLE. ADDED A THIN FOAM PLANTAR RT ORTHOTIC IN AN ATTEMPT TO IMPROVE CUSHIONING AND PROVIDED EXTRA MATERIAL SHOULD HE NEED TO ADD MORE AND IF SUCCESSFUL WILL SEND ORTHOSES BACK TO LAB FOR A MORE PERMANENT ACCOMMODATION. I DISCUSSED THE FINDINGS & PLAN WITH PATIENT (UNCHANGED SINCE PREVIOUS VISIT) & PATIENT AGREES AND UNDERSTANDS PLAN. RTC: (06/03 @ [facility]) Medication Reconciliation: PERFORMED TODAY - SEE BELOW. [...] list may not be complete. Please check JLV. Allergies/ADRs (Tool #5) FACILITY ALLERGY/ADR -------- No Remote Allergy/ADR Data available for this patient [facility] [place] [facility] DIPHENHYDRAMINE Med Recon [...] display of VA prescriptions dispensed from another [place] or [facility] facility (remote) is limited to active outpatient prescription entries matched to National Drug File at the originating site and may not include some items such as investigational drugs, compounds, etc. NOT INCLUDED IN THIS LIST: Medications self-entered by the patient into personal health records (i.e. [facility]) are NOT included in this list. Non-VA medications documented outside this [place], remote inpatient orders (regardless of status) and [...] ONCE DAILY TO PREVENT STROKE/HEART ATTACK Rx# [id number] Last Released: 11/10/24 Qty/Days Supply: 120/90 Rx Expiration Date: 08/01/25 Refills Remainin Indication: CARDIOPROTECTION OUTPT BUPRENORPHINE 300MCG BUCCAL FILM (Status = Discontinued) PLACE ONE FILM BETWEEN CHEEK AND GUM UNTIL DISSOLVED EVERY 12 HOURS FOR PAIN Rx# [id number] Last Released: 09/30/24 Qty/Days Supply: 60/30 Rx Expiration Date: 01/25/25 Refills Remainin Indication: FOR PAIN OUTPT BUPRENORPHINE 450MCG BUCCAL FILM (Status = Active) PLACE ONE FILM BETWEEN CHEEK AND GUM UNTIL DISSOLVED EVERY 12 HOURS Rx# [id number] Last Released: 11/27/24 Qty/Days Supply: Rx Expiration Date: 05/28/25 Refills Remainin Indication: FOR PAIN OUTPT DICLOFENAC (EQV-FLECTOR) 1.3% PATCH (Status = ) APPLY 1 PATCH TO SKIN TWICE DAILY NEEDED FOR PAIN Rx# [id number] Last Released: 04/23/24 Qty/Days Supply: Rx Expiration Date: 10/19/24 Refills Remainin Indication: FOR PAIN OUTPT PREGABALIN 300MG ORAL CAP (Status = Discontinued) TAKE ONE CAPSULE BY MOUTH TWICE DAILY FOR PAIN Rx# [id number] Last Released: 09/29/24 Qty/Days Supply: Rx Expiration Date: 03/01/25 Refills Remainin Indication: FOR PAIN OUTPT PREGABALIN 300MG ORAL CAP (Status = Discontinued) TAKE ONE CAPSULE BY MOUTH TWICE DAILY FOR PAIN Rx# [id number] Last Released: 12/17/24 Qty/Days Supply: Rx Expiration Date: 05/10/25 Refills Remainin Indication: FOR PAIN OUTPT PREGABALIN 300MG ORAL CAP (Status = Active) TAKE ONE CAPSULE BY MOUTH TWICE DAILY FOR PAIN Rx# [id number] Last Released: Qt Supply: Rx Expiration Date: 07/16/25 Refills Remainin Indication: FOR PAIN OUTPT SEMAGLUTIDE WL 0.25MG/0.5ML PEN 0.5ML (Status = Active) INJECT 0.25MG SUBCUTANEOUSLY ONCE A WEEK FOR WEIGHT LOSS Rx# [id number] Last Released: 01/13/25 Qty/Days Supply: 09/22 Rx Expiration Date: 02/12/25 Refills Remainin Indication: FOR WEIGHT LOSS Non-VA TADALAFIL 5MG TAB TAKE ONE TABLET BY MOUTH DAILY SUPPLIES /jac/ SANTOS LEBRON DPM TREE FELLER OPERATOR Signed: 01/14/2025 11:09 SANTOS LEBRONFIELD
--- OUTSIDE RECORDS SUMMARY | 2025-01-14 07:00 | XMS_ITS | Encounter Summary ---
Author Name [facility] [place] Address [address] [place] [id number] Care Team Providers Care Profile Trimmer Name Role Phone FRANKY CHIN Primary Care [...] EMILY STEELE [id number] 1 May 28, 2017 [id number] [phone] Weston MAK PATIENT MEDICARE (WNR) MEDICARE (M) PART A Mar 28, 2021 PART A [id number] QV20 Weston MAK PATIENT MEDICARE (WNR) MEDICARE (M) PART B Mar 28, 2021 PART B [id number] QV20 Weston MAK PATIENT MEDICARE (WNR) MEDICARE (M) PART A Mar 28, 2021 PART A [id number] QV20 Weston MAK ILLBIJAL PATIENT MEDICARE (WNR) MEDICARE (M) PART B Mar 28, 2021 PART B [id number] QV20 OBDULIO,W ILLTAINAM PATIENT OPTUM RX PRESCRIPT ION RX May 28, 2022 THPRX [id number] [phone] OBDULIO,W ILLIAM PATIENT OPTUM RX PRESCRIPT ION RX May 28, 2022 THPRX [id number] OBDULIO,W ILLIAM PATIENT OPTUM RX PRESCRIPT ION RX Sep 11, 2018 THPRX [id number] [phone] OBDULIO,W ILLIAM PATIENT [facility] [id number] OBDULIO,W ILLIAM PATIENT [facility] May 28, 2017 [facility] [id number] OBDULIO,W ILLIAM PATIENT [facility](WNR) [facility] T[facility] RAFAEL May 28, 2017 [id number] OBDULIO,W ILLIAKaren PATIENT [facility] (R[facility] May 28, 2017 (WNR) [id number] OBDULIO,W ILLBIJAL PATIENT [facility] Sep 11, 2018 [id number] [phone] OBDULIOWeston GUYM PATIENT Selected Encounter This section includes the information on record at [place] for the Encounter. Date/Time Encounter Type Encounter Description Reason Provider Source Jan 14, 2025 11:00 AM MTMS BY PHARM TIERNEY 15 MIN CLINICAL PHARMACY ICD-10-CM E66.01 Morbid (severe) obesity due to excess calories NINA CHO IHSergey Encounter Template Text not used by [place] Assessments - Encounter Diagnoses This section includes the primary and secondary diagnoses documented for the Encounter. Date/Time Primary/Secondary Diagnosis Diagnosis Name Provider Source Jan 14, 2025 11:22 AM PRIMARY Morbid (severe) obesity due to excess calories NINA CHO Plan of Treatment: Future Appointments (+ 6 months) and Future Tests (+/- 45 days) The Plan of Treatment section includes future care activities for the patient from all [place] [facility] hospital. This section includes future appointments and [...] 23, 2025 08:30 AM AMBULATORY - MEDICINE [facility] Feb 06, 2025 02:00 PM AMBULATORY - MEDICINE [facility] NTR [facility]N [facility] Mar 02, 2025 11:30 AM [facility] Jul 16, 2025 01:30 PM AMBULATORY - MEDICINE [facility] Lab Results: +/- 30 days of the encounter This section includes the Chemistry and Hematology Lab Results on record with [place] for the patient. Radiology Reports and Pathology Reports are provided separately, in subsequent sections. Lab Results This section contains the Chemistry/Hematology Results that were resulted 30 days before or 30 daysafter the date of the Encounter. Date/Time Source Result Type Result - Unit Interpretation Reference Range Specimen Type Comment Jan 14, 2025 11:30 AM [facility] AMPHETAMINES SCREEN PANEL URINE Specimen Type [...] Jan 13, 2025 08:58 AM Reporting Lab: [address] [address] Performing Lab: [address] [address] AMPHETAMINES SCREEN NONE-DETECTED None-D etected, Cutoff = 1000 ng/mL PH, DERECK 5.1 [pH] 5.0-8.0 CREATININE, DERECK 74.72 mg/dL 63-166 SP.GRAVITY, DERECK 1.008 1.005-1.030 Jan 14, 2025 11:30 AM [facility] ALCOHOL, ETHYL URINE PANEL URINE Specimen [...] Jan 13, 2025 08:58 AM Reporting Lab: [address] [address] Performing Lab: [address] [address] ALCOHOL, ETHYL URINE NONE-DETECTED None- Detected, cutoff = 10 mg/dL PH, DERECK 5.1 [pH] 5.0-8.0 CREATININE, DERECK 74.72 mg/dL 63-166 SP.GRAVITY, DERECK 1.008 1.005-1.030 Jan 14, 2025 11:30 AM [facility] FENTANYL SCREEN PANEL URINE Specimen Type: [...] Jan 13, 2025 08:58 AM Reporting Lab: [address] [address] Performing Lab: [address] [address] FENTANYL SCREEN NONE-DETECTED None-Detec bryon, Cutoff = 1.00 ng/mL PH, DERECK 5.1 [pH] 5.0-8.0 CREATININE, DERECK 74.95 mg/dL 63-166 SP.GRAVITY, DERECK 1.008 1.005-1.030 Jan 14, 2025 11:30 AM [facility] BENZODIAZEPINES SCREEN PANEL URINE Specimen T [...] Jan 13, 2025 08:58 AM Reporting Lab: [address] [address] Performing Lab: [address] [address] BENZODIAZEPINES SCREEN NONE-DETECTED Non e-Detected, Cutoff = 200 ng/mL PH, DERECK 5.1 [pH] 5.0-8.0 CREATININE, DERECK 74.72 mg/dL 63-166 SP.GRAVITY, DERECK 1.008 1.005-1.030 Jan 14, 2025 11:30 AM [facility] CANNABINOIDS SCREEN PANEL URINE Specimen Type [...] Jan 13, 2025 08:58 AM Reporting Lab: [address] [address] Performing Lab: [address] [address] CANNABINOIDS SCREEN NONE-DETECTED None-D etected,Cutoff = 50 ng/mL PH, DERECK 5.1 [pH] 5.0-8.0 CREATININE, DERECK 74.72 mg/dL 63-166 SP.GRAVITY, DERECK 1.008 1.005-1.030 Jan 14, 2025 11:30 AM [facility] METHADONE SCREEN PANEL URINE Specimen Type: [...] Jan 13, 2025 08:58 AM Reporting Lab: [address] [address] Performing Lab: [address] [address] PH, DERECK 5.1 [pH] 5.0-8.0 CREATININE, DERECK 74.72 mg/dL 63-166 SP.GRAVITY, DERECK 1.008 1.005-1.030 METHADONE SCREEN NONE-DETECTED None-Dete cted,Cutoff = 300 ng/mL Jan 14, 2025 11:30 AM [facility] BUPRENORPHINE SCREEN PANEL URINE Specimen Typ [...] Jan 13, 2025 08:58 AM Reporting Lab: [address] [address] Performing Lab: [address] [address] BUPRENORPHINE SCREEN NONE-DETECTED None Detected, Cutoff = 5 ng/mL PH, DERECK 5.1 [pH] 5.0-8.0 CREATININE, DERECK 74.72 mg/dL 63-166 SP.GRAVITY, DERECK 1.008 1.005-1.030 Jan 14, 2025 11:30 AM [facility] COCAINE SCREEN PANEL URINE Specimen Type: [...] Jan 13, 2025 08:58 AM Reporting Lab: [address] [address] Performing Lab: [address] [address] COCAINE SCREEN NONE-DETECTED None-Detect ed,Cutoff = 300 ng/mL PH, DERECK 5.1 [pH] 5.0-8.0 CREATININE, DERECK 74.72 mg/dL 63-166 SP.GRAVITY, DERECK 1.008 1.005-1.030 Jan 14, 2025 11:30 AM [facility] OPIATES SCREEN PANEL URINE Specimen Type: [...] Jan 13, 2025 08:58 AM Reporting Lab: [address] [address] Performing Lab: [address] [address] OPIATES SCREEN NONE-DETECTED None-Detect ed, Cutoff = 300 ng/mL PH, DERECK 5.1 [pH] 5.0-8.0 CREATININE, DERECK 74.72 mg/dL 63-166 SP.GRAVITY, DERECK 1.008 1.005-1.030 Jan 14, 2025 11:30 AM [facility] OXYCODONE SCREEN PANEL URINE Specimen Type: [...] Jan 13, 2025 08:58 AM Reporting Lab: [address] [address] Performing Lab: [address] [address] OXYCODONE SCREEN NONE-DETECTED None-Dete cted, Cutoff = [...] place. Date/Time Current Smoking Status Comment Facil [place] Nov 01, 2022 09:00 AM [place]-TOBAC[place] FORMER USER [facility] Tobacco Use History This section includes a history of the smoking, or tobacco-related health factors, that were collected on or before the date of the Encounter. The data comes from the [place] facility where the Encounter took place. Date/Time Smoking Status/Tobacco Use Comment F acility Nov 01, 2022 09:00 AM [place]-TOBACCO QUIT 15 YRS OR MORE [facility] Nov 03, 2021 02:00 PM VA-TOBACCO NEVER USED [facility] October 19, 2020 09:00 AM VA-TOBACCO FORMER USER [facility] October 19, 2020 09:00 AM VA-TOBACCO QUIT 15 YRS OR MORE [facility] Aug 16, 2018 12:32 PM VA-TOBACCO NEVER USED [facility] Aug 16, 2017 02:32 PM QUIT TOBACCO USE > 7 YEARS AGO stopped smoking over 25 years ago [facility] Aug 15, 2016 09:59 AM QUIT TOBACCO USE > 7 YEARS AGO quit 25 years ago [facility] Aug 13, 2015 02:47 PM QUIT TOBACCO USE > 7 YEARS AGO smoked cig, ~20/day, quit 20 yrs ago [facility] Aug 10, 2014 01:28 PM QUIT TOBACCO USE > 7 YEARS AGO quit 20+ yrs ago [facility] Advance Directives: All historical and current Section Date Range: From patient's date of to the date document was created. This section includes ALL of a patient's completed or amended [place] Advance and Rescinded Directives. The entries below indicate that a directive exists for the patient, but an actual copy is not included with this document. The data comes from all [facility]. Date Advance Directives Provider Source Dec 02, 2020 ADVANCE DIRECTIVE ZAIRE COMER [facility] Encounter Notes: All associated encounter notes This section contains the clinical notes associated to the Encounter. Date/Time Encounter Note(s) Provider Source Jan 14, 2025 10:40 AM PHARMACY OUTPATIEN T NOTE: LOCAL TITLE: PHARMACY CLINIC NOTE STANDARD TITLE: PHARMACY OUTPATIENT NOTE DATE OF NOTE: JAN 14, 2025@10:40 ENTRY DATE: JAN 14, 2025@10:40:14 AUTHOR: NINA CHO COSIGNER: URGENCY: STATUS: COMPLETED TEODORA MAK is a 69 yo MALE referred to pharmacy clinic for weight management. HPI: S: [place] referred to pharmacy clinic for weight management. He notes he is s/p gastric bypass ~2004; lost a lot of weight following that but lost his job, became sedentary and gained weight; has not been able to lose it. Followed by pain management clinic. Continues with MOVE program. Notes ~5lb weight loss but frustrated with slow pace of this. Reports waist circumference >40. Presents today for semaglutide (Benja) teaching. BP: 114/72 (08/21/2024 13:27) HR: 86 (08/21/2024 13:27) HT: 72 in [182.9 cm] (11/01/2022 09:14) Weight: 285.2 lb [129.36 kg] (08/21/2024 13:27) BMI: 38.8 278lb (01/05/25) 276lb (01/14/25) Diet: B: fruit, WW bread (1) or bagel (1/2) + butter or PB L: varies; salad or chicken sandwich D: varies; grills protein, salad Snacks: popcorn, fruit, nuts/trailmix Drinks: diet caffeine free soda, celcius, water Social: Alcohol: social; 1-2 drinks if out Tobacco: denies Exercise: Walks a lot Active problems - Computerized Problem List is the source for the followin. Impingement syndrome of right shoulder region 2. Hyperlipidemia ([facility] [id number]) 3. Impaired Fasting Glucose ([facility] [id number]) 4. Erectile Dysfunction ([facility] [id number]) 5. Tinnitus 6. Hearing loss 7. Exposure to Potentially Hazardous Substance ([facility] [id number]) 8. Syncope and collapse 9. Low back [...] MOUTH TWICE ACTIVE DAILY Indication: FOR PAIN Pending Outpatient Medications Status == 1) PREGABALIN 300MG ORAL CAP TAKE ONE CAPSULE BY MOUTH TWICE PENDING DAILY Indication: FOR PAIN Active Non-VA Medications [...] bariatric surgery but has since gained weight. Reports followed closely by ; denies SI. Other pharmacologic options: Orlistat: limited potential for weight loss; r/o GI ADRs Qysmia: h/o MH concerns; followed regularly but does not want to exacerbate. Denies SI. Contrave: avoid d/t buprenorphine ---- MOA, potential ADRs, dosing, administration of semaglutide (Wegovy) reviewed. [place] verbalizes request to proceed with therapy. Will INITIATE semaglutide (Wegovy): Week 1 through week 4 : 0.25 mg once weekly. Week 5 through week 8: 0.5 mg once weekly. Week 9 through week 12: 1 mg once weekly. Week 13 through week 16: 1.7 mg once weekly. Week 17 and thereafter (maintenance dosage): 2.4 mg once weekly (preferred regimen); if not tolerated, may use an alternative maintenance dosage of 1.7 mg once weekly. LSMs encouraged. Continue with MOVE. Follow-up: 3 weeks (telephone) Time Spent: 20 minutes PBM PharmD Pharmacotherapy Rem V12: PHARMACIST INTERVENTIONS: OBESITY/WEIGHT MANAGEMENT Medication Intervention(s) Initiate new medication Medication reconciliation (changes to active VA and non-VA medication lists to reconcile differences) Changes to medication lists made Add or renew medication /es/ Nina Cho PharmD Clinical Pharmacy Practitioner Signed: 01/14/2025 11:22 NINA CHO [facility]
--- OUTSIDE RECORDS SUMMARY | 2025-01-16 04:52 | XMS_ITS ---
Author Name [facility] [place] Address [address] [place] [address] Care Team Providers Care Heavy Mobile Equipment Operator Name Role Phone FRANKY CHIN Primary Care [...] EMILY STEELE [id number] 1 May 28, 2017 [id number] Weston MAK PATIENT MEDICARE (WNR) MEDICARE (M) PART A Mar 28, 2021 PART A [id number] [id number] Weston MAK PATIENT MEDICARE (WNR) MEDICARE (M) PART B Mar 28, 2021 PART B [id number] [id number] [phone] Weston MAK PATIENT MEDICARE (WNR) MEDICARE (M) PART A Mar 28, 2021 PART A [id number] QV20 OBDULIO,W ILLIAM PATIENT MEDICARE (WNR) MEDICARE (M) PART B Mar 28, 2021 PART B [id number] QV20 [phone] OBDULIO,W ILLIAM PATIENT OPTUM RX PRESCRIPT ION RX May 28, 2022 THPRX [id number] OBDULIO,W ILLIAM PATIENT OPTUM RX PRESCRIPT ION RX May 28, 2022 THPRX [id number] [phone] OBDULIO,W ILLIAM PATIENT OPTUM RX PRESCRIPT ION RX Sep 11, 2018 THPRX [id number] OBDULIO,W ILLIAM PATIENT [facility] [id number] OBDULIO,W ILLIAM PATIENT [facility] May 28, 2017 [facility] [id number] OBDULIO,W ILLIAM PATIENT [facility] PLAN(WNR) [facility] RAFAEL May 28, 2017 [id number] [phone] OBDULIO,W ILLIAM PATIENT [facility] (R) [facility](WN R) May 28, 2017 (R) [id number] [phone] OBDULIO,W ILLIAM PATIENT [facility] Sep 11, 2018 [id number] [phone] OBDULIO,W ILLIAM PATIENT Selected Encounter This section includes the information on record at [place] for the Encounter. Date/Time Encounter Type Encounter Description Reason Provider Source Jan 16, 2025 08:52 AM Outpatient Encounter HT NON-VIDEO MONITORING ICD-10-CM E66.811 Obesity, class 1 CINDY SAGE IHSergey Encounter Template Text not used by [place] Assessments - Encounter Diagnoses This section includes the primary and secondary diagnoses documented for the Encounter. Date/Time Primary/Secondary Diagnosis Diagnosis Name Provider Source Jan 16, 2025 08:58 AM PRIMARY Obesity, class 1 JABARI FRITZ [facility] Jan 16, 2025 08:58 AM SECONDARY Body mass index [BMI] 38.0-38.9, adult JABARI FRITZ [facility] Plan of Treatment: Future Appointments (+ 6 [...] 23, 2025 08:30 AM AMBULATORY - MEDICINE [facility] Feb 06, 2025 02:00 PM AMBULATORY - MEDICINE [facility] Mar 02, 2025 11:30 AM AMBULATORY - MEDICINE [facility] Jul 16, 2025 01:30 PM AMBULATORY - MEDICINE [facility] Lab Results: +/- 30 days of the encounter This section includes the Chemistry and Hematology Lab Results on record with [place] for the patient. Radiology Reports and Pathology Reports are provided separately, in subsequent sections. Lab Results This section contains the Chemistry/Hematology Results that were resulted 30 days before or 30 daysafter the date of the Encounter. Date/Time Source Result Type Result - Unit Interpretation Reference Range Specimen Type Comment Jan 14, 2025 11:30 AM [facility] BENZODIAZEPINES SCREEN PANEL URINE Specimen T ype: [...] Jan 13, 2025 08:58 AM Reporting Lab: [facility] [address] [address] Performing Lab: [address] [address] BENZODIAZEPINES SCREEN NONE-DETECTED Non e-Detected, Cutoff = 200 ng/mL PH, DERECK 5.1 [pH] 5.0-8.0 CREATININE, DERECK 74.72 mg/dL 63-166 SP.GRAVITY, DERECK 1.008 1.005-1.030 Jan 14, 2025 11:30 AM [facility] ALCOHOL, ETHYL URINE PANEL URINE Specimen Typ [...] Jan 13, 2025 08:58 AM Reporting Lab: [address] [address] Performing Lab: [address] [address] ALCOHOL, ETHYL URINE NONE-DETECTED None- Detected, cutoff = 10 mg/dL PH, DERECK 5.1 [pH] 5.0-8.0 CREATININE, DERECK 74.72 mg/dL 63-166 SP.GRAVITY, DERECK 1.008 1.005-1.030 Jan 14, 2025 11:30 AM [facility] AMPHETAMINES SCREEN PANEL URINE Specimen Type : [...] Jan 13, 2025 08:58 AM Reporting Lab: [address] [address] Performing Lab: [address] [address] AMPHETAMINES SCREEN NONE-DETECTED None-D etected, Cutoff = 1000 ng/mL PH, DERECK 5.1 [pH] 5.0-8.0 CREATININE, DERECK 74.72 mg/dL 63-166 SP.GRAVITY, DERECK 1.008 1.005-1.030 Jan 14, 2025 11:30 AM [facility] FENTANYL SCREEN PANEL URINE Specimen Type: UR [...] Jan 13, 2025 08:58 AM Reporting Lab: [address] [address] Performing Lab: [address] [address] FENTANYL SCREEN NONE-DETECTED None-Detec bryon, Cutoff = 1.00 ng/mL PH, DERECK 5.1 [pH] 5.0-8.0 CREATININE, DERECK 74.95 mg/dL 63-166 SP.GRAVITY, DERECK 1.008 1.005-1.030 Jan 14, 2025 11:30 AM [facility] CANNABINOIDS SCREEN PANEL URINE Specimen Type : [...] Jan 13, 2025 08:58 AM Reporting Lab: [address] [address] Performing Lab: [address] [address] CANNABINOIDS SCREEN NONE-DETECTED None-D etected,Cutoff = 50 ng/mL PH, DERECK 5.1 [pH] 5.0-8.0 CREATININE, DERECK 74.72 mg/dL 63-166 SP.GRAVITY, DERECK 1.008 1.005-1.030 Jan 14, 2025 11:30 AM [facility] COCAINE SCREEN PANEL URINE Specimen Type: URI [...] Jan 13, 2025 08:58 AM Reporting Lab: [address] [address] Performing Lab: [address] [address] COCAINE SCREEN NONE-DETECTED None-Detect ed,Cutoff = 300 ng/mL PH, DERECK 5.1 [pH] 5.0-8.0 CREATININE, DERECK 74.72 mg/dL 63-166 SP.GRAVITY, DERECK 1.008 1.005-1.030 Jan 14, 2025 11:30 AM [facility] BUPRENORPHINE SCREEN PANEL URINE Specimen Typ e: [...] Jan 13, 2025 08:58 AM Reporting Lab: [address] [address] Performing Lab: [address] [address] BUPRENORPHINE SCREEN NONE-DETECTED None Detected, Cutoff = 5 ng/mL PH, DERECK 5.1 [pH] 5.0-8.0 CREATININE, DERECK 74.72 mg/dL 63-166 SP.GRAVITY, DERECK 1.008 1.005-1.030 Jan 14, 2025 11:30 AM [facility] METHADONE SCREEN PANEL URINE Specimen Type: U [...] Jan 13, 2025 08:58 AM Reporting Lab: [address] [address] Performing Lab: [address] [address] PH, DERECK 5.1 [pH] 5.0-8.0 CREATININE, DERECK 74.72 mg/dL 63-166 SP.GRAVITY, DERECK 1.008 1.005-1.030 METHADONE SCREEN NONE-DETECTED None-Dete cted,Cutoff = 300 ng/mL Jan 14, 2025 11:30 AM [facility] OPIATES SCREEN PANEL URINE Specimen Type: URI [...] Jan 13, 2025 08:58 AM Reporting Lab: [address] [address] Performing Lab: [address] [address] OPIATES SCREEN NONE-DETECTED None-Detect ed, Cutoff = 300 ng/mL PH, DERECK 5.1 [pH] 5.0-8.0 CREATININE, DERECK 74.72 mg/dL 63-166 SP.GRAVITY, DERECK 1.008 1.005-1.030 Jan 14, 2025 11:30 AM [facility] OXYCODONE SCREEN PANEL URINE Specimen Type: U [...] Jan 13, 2025 08:58 AM Reporting Lab: [address] [address] Performing Lab: [address] [address] OXYCODONE SCREEN NONE-DETECTED None-Dete cted, Cutoff = 100 ng/mL PH, DERECK 5.1 [pH] 5.0-8.0 CREATININE, DERECK 74.72 mg/dL 63-166 SP.GRAVITY, DERECK 1.008 1.005-1.030 Social History: Smoking Status (Most current) and Tobacco Use (All prior to encounter date) This section includes the most current, and the historical, smoking and tobacco- related health factors from the [place] facility where the Encounter took place. Current Smoking Status This section includes the most current smoking, or tobacco-related health factor, from the [place] facility where the Encounter took place. Date/Time Current Smoking Status Comment Kaycee ity Jun 30, 2024 10:30 AM [place]-TOBACCO NEVER U SED OTHER TYPE [facility] Tobacco Use History This section includes a history of the smoking, or tobacco-related health factors, that were collected on or before the date of the Encounter. The data comes from the [place] facility where the Encounter took place. Date/Time Smoking Status/Tobacco Use Comment F acility Jun 30, 2024 10:30 AM [place]-TOBAC[place] USE FOR HIPOLITO CIGARETTES [facility] Advance Directives: All historical and current Section Date Range: From patient's date of to the date document was created. This section includes ALL of a patient's completed or amended [place] Advance and Rescinded Directives. The entries below indicate that a directive exists for the patient, but an actual copy is not included with this document. The data comes from all [place] facilities. Date Advance Directives Provider Source Dec 02, [address] ZAIRE COMER [facility] Encounter Notes: All associated encounter notes This section contains the clinical notes associated to the Encounter. Date/Time Encounter Note(s) Provider Source Jan 16, 2025 08:54 AM CARE COORDINATION HOME TELEHEALTH SUMMARIZATION NOTE: LOCAL TITLE: L2 MONTHLY MONITOR NOTE STANDARD TITLE: CARE COORDINATION HOME TELEHEALTH SUMMARIZATION DATE OF NOTE: JAN 16, 2025@08:54 ENTRY DATE: JAN 16, 2025@08:54:57 AUTHOR: CINDY SAGE EXP COSIGNER: URGENCY: STATUS: COMPLETED SUMMARY OF EPISODE (NON-VIDEO MONTHLY MONITORING): is actively enrolled in the L2 Telehealth Program and has been monitored for the past month. Data is sent from the 's home to the program [facility] and is reviewed for [id number] responses. Month monitored:DECEMBER 2024 Diagnosis (if required locally):E66.811 obesity class I /es/ CINDY SAGE RD,LDN STAFF DIETITIAN Signed: 01/16/2025 09:02 CINDY SAGE [facility]
[2025-01-20 10:44] VITALS: BP 118/70; PULSE 76; RESP 16; TEMP 36.8; O2SAT 95; BMI 39.1
--- NOTE | 2025-01-20 10:44 | A.OFFPC_ITS ---
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 Accompanied by: Self / Same As Patient Allergies No Known Allergies Allergy (Verified 01/20/25 10:45) Medication List - Last Reconciled 01/20/25 by Sandy Lemos MD acetaminophen ER 1,300 mg PO Q8H alfuzosin ER 10 mg PO BEDTIME aspirin 81 mg PO DAILY buprenorphine HCl 75 mcg buccal Q12H cooduknwejkf-wbgiwojertz-npohq 1,000-200 mcg 1 tab PO DAILY cyanocobalamin (vitamin B-12) 1,000 mcg sublingual DAILY diclofenac sodium 1% 1 ea topical BID meloxicam submicronized 10 mg PO QAM omeprazole 20 mg PO QAM oxybutynin chloride ER 20 mg PO QAM semaglutide (weight loss) (Wegovy) 0.25 mg subcut QWEEK tadalafil 5 mg PO QAM tolterodine ER 4 mg PO QAM triamcinolone acetonide 0.025% 1 appl topical BID Tobacco use date assessed: 01/20/25 Fall risk assessment: No Falls in past year Last assessed Fall Risk: 01/20/25 Dental Screening Dental Screen Date: 01/20/25 Did you have a dental visit in the last 12 months?: Yes Did you have a dental problem in the last 6 months where you did not have access to dental care?: No Was dental information given to patient?: Patient has dentist HPI PE HPI Details Patient presents for physical. He follows up with [facility] management for chronic lumbar spine stenosis, [facility] [place] urology for BPH; patient was started on Wegovy by [facility] for weight loss [facility] Medical History Right knee pain Impingement of right shoulder Digital mucous cyst of left hand Hematoma Pre-diabetes Hearing loss Diverticulosis Lumbar stenosis Syncope Osteoarthritis BPH (benign prostatic hyperplasia) Heart abnormality GERD (gastroesophageal reflux disease) Anemia Surgical History History of evacuation of hematoma History of ankle surgery Hx of excision of mass History of decompression of ulnar nerve History of surgery on wrist Hx of total knee replacement Hx of spinal surgery Hx of gastric bypass Hx of shoulder surgery Hx of neck surgery Hx of cataract surgery Hx of colonoscopy History of esophagogastroduodenoscopy (EGD) Family History Mother Intestinal cancer Sister Substance use disorder Social History Household Members: Spouse 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:: , 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 1. Little interest or pleasure in doing things: not at all 2. Feeling down, depressed, or hopeless: not at all 3. Trouble falling or staying asleep, or sleeping too much: not at all 4. Feeling tired or having little energy: not at all 5. Poor appetite or overeating: not at all 6. Feeling bad about yourself - or that you are a failure or have let yourself or your family down: not at all 7. Trouble concentrating on things, such as reading the newspaper or watching television: not at all 8. Moving or speaking so slowly that other people could have noticed. Or the opposite - being so fidgety or restless that you have been moving around a lot more than usual: not at all 9. Thoughts that you would be better off or of hurting yourself in some way: not at all Total score: 0 Depression Screening Interpretation: Negative Depression Screening Done: Yes 06168 - PHQ-9 Billing: Yes Source: Developed by Drs. Andrea Doherty, Opal Jaimes, Edgardo Szymanski and colleagues, with an educational savannah from [employer]. Thrive Questionnaire Date Thrive assessed: 01/17/25 I am a: Patient What is your living situation today?: I have a steady place to live Within the past 12 months, did the food you bought not last and you didn't have the money to get more?: Never true Within the past 12 months, did you worry whether your food would run out before you got money to buy more?: Never true Do you have trouble paying for medicines?: No Do you have trouble getting transportation to medical appointments?: No Do you have trouble paying your heating and electricity bill?: No Do you have trouble taking care of your child, family member or friend?: No Do you have trouble with day-to-day activities such as bathing, preparing meals, shopping, managing finances, etc.?: No Are you currently unemployed and looking for a job?: No Are you interested in more education?: Yes Please select the resources that you would like help with: None Currently or been in a relationship where the following occur: No concerns reported THRIVE Score: 0 AUDIT C Alcohol Use Questionnaire (AUDIT-C) 1. How often do you have a drink containing alcohol?: 2-4 times a month 2. How many drinks containing alcohol do you have on a typical day when you are drinking?: 1 or 2 3. How often do you have six or more drinks on one occasion?: Less than monthly Total Score: 3 AMINAH-7 AMB Questionnaire AMINAH-7 Date AMINAH - 7 assessed: 01/20/25 Feeling nervous, anxious, or on edge: 0 = Not at all Not being able to stop or control worryin = Not at all Worrying too much about different things: 0 = Not at all Trouble relaxin = Not at all Being so restless that it is hard to sit still: 0 = Not at all Becoming easily annoyed or irritable: 0 = Not at all Feeling afraid as if something awful might happen: 0 = Not at all Total AMINAH-7 score (0-4 normal; 5-9 mild; 10-14 moderate; 15-21 severe): 0 Source: Developed by Drs. Andrea Doherty, Opal Jaimes, Edgardo Szymanski and colleagues, with an educational savannah from [employer]. AMINAH-7 Assessment Billing AMINAH-7 Assessment Tool: AMINAH-7 Assessment 41090 Review of Systems Const All systems reviewed & are unremarkable except as noted in HPI and below Eyes Reports no additional complaints ENT Reports no additional complaints Card Reports no additional complaints Resp Reports no additional complaints GI Reports no additional complaints Physical exam (Primary Care) Vital Signs: Last Vital Signs Temp 98.3 F 01/20/25 10:44 Pulse 76 01/20/25 10:44 Resp 16 01/20/25 10:44 BP 118/70 01/20/25 10:44 Pulse Ox 95 01/20/25 10:44 Oxygen Delivery Method Room Air 01/20/25 10:44 BMI result Body Mass Index 39.1 Tobacco/Smoking Status: Tobacco use Status Tobacco use date assessed 01/20/25 01/20/25 10:49 Patient Tobacco Use Status Former Tobacco user 01/20/25 10:49 e-Cigarette/Vaping Use Never Used 01/20/25 10:49 PHQ-9: PHQ-9 Score PHQ-9: Total score 0 01/20/25 13:10 Depression Screening Interpretation: Negative Thrive Assessment: Date of Thrive Assessment Date Thrive assessed 01/17/25 01/20/25 10:49 Currently or been in a relationship where the following occur: No concerns reported Const General: no acute distress HENMT Head: Yes normal to inspection Mouth: Normal oral and palatal mucosa present Eyes General: appearance normal, both eyes and all related structures Neck Neck: Yes no lymphadenopathy and Yes supple Resp Effort & Inspection: normal respiratory effort Auscultation: clear to auscultation bilaterally Cardio Rhythm: regular rhythm Heart sounds: S1 normal heart sound present and S2 normal heart sound present GI Inspection: Yes normal to inspection Palpation (GI): Soft to palpation Percussion: Yes normal to percussion Auscultation: normal bowel sounds Coding Level of Care Code Est Pt Prev Care >65y(13284) Diagnoses Heart murmur R01.1 Anemia D64.9 Annual physical exam Z00.00 Additional Codes AMINAH-7 Assessment Billing - AMINAH-7 Assessment Tool: AMINAH-7 Assessment 03193 ([id number]) PHQ-9 - 86181 - PHQ-9 Billing: Yes ([id number]) Assessment & Plan Assessment & Plan (1) Heart murmur: Comment: Used to see [facility] [place] Cardiology Code(s): R01.1 - Cardiac murmur, unspecified Category: Medical Plan: Obtain echocardiogram (2) Anemia: Comment: Iron deficiency anemia due to gastric bypass and borderline low vitamin B12 Code(s): D64.9 - Anemia, unspecified Category: Medical Plan: Follow-up with Hematology (3) Annual physical exam: Code(s): Z00.00 - Encounter for general adult medical examination without abnormal findings Category: Medical Plan: Well-balanced diet regular physical activity discussed with the patient he has a fasting blood work today. [facility] for B[facility] Orders: Orders CA echo transthoracic complete Today R01.1 - Cardiac murmur, unspecified Comprehensive [facility]. Panel Fast Today D64.9 - Anemia, unspecified, R01.1 - Cardiac murmur, unspecified, R73.9 - Hyperglycemia, unspecified, Z00.00 - Encounter for general adult medical examination without abnormal findings, Z98.84 - Bariatric surgery status Complete Blood Count Auto Diff Today D64.9 - Anemia, unspecified, R01.1 - Cardiac murmur, unspecified, R73.9 - Hyperglycemia, unspecified, Z00.00 - Encounter for general adult medical examination without abnormal findings, Z98.84 - Bariatric surgery status Hemoglobin A1c Today D64.9 - Anemia, unspecified, R01.1 - Cardiac murmur, unspecified, R73.9 - Hyperglycemia, unspecified, Z00.00 - Encounter for general adult medical examination without abnormal findings, Z98.84 - Bariatric surgery status Microalbumin, Random (w Creat) Today D64.9 - Anemia, unspecified, R01.1 - Cardiac murmur, unspecified, R73.9 - Hyperglycemia, unspecified, Z00.00 - Encounter for general adult medical examination without abnormal findings, Z98.84 - Bariatric surgery status Lipid Panel Today D64.9 - Anemia, unspecified, R01.1 - Cardiac murmur, unspecified, R73.9 - Hyperglycemia, unspecified, Z00.00 - Encounter for general adult medical examination without abnormal findings, Z98.84 - Bariatric surgery status UA w Microscopic Today D64.9 - Anemia, unspecified, R01.1 - Cardiac murmur, unspecified, R73.9 - Hyperglycemia, unspecified, Z00.00 - Encounter for general adult medical examination without abnormal findings, Z98.84 - Bariatric surgery status
--- OUTSIDE RECORDS SUMMARY | 2025-01-20 11:03 | XMS_ITS | Continuity of Care Document ---
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 Condition [place] Impingement syndrome of right shoulder region Active [...] [facility] [place] [facility] Tinnitus Active Condition [place] Ulnar neuritis Active Condition [facility] [place] [facility] Diagnosis: ICD-10-CM E66.811 Obesity, class 1 Active Diagnosis [facility] [place] [facility] Diagnosis: ICD-10-CM E66.01 Morbid (severe) obesity due to excess calories Active Diagnosis [place] Diagnosis: ICD-10-CM L60.0 Ingrowing nail Active Diagnosis [place] Diagnosis: ICD-10-CM M54.50 Low back pain, unspecified Active Diagnosis [facility] [place] [facility] Diagnosis: ICD-10-CM Z46.1 Encounter for fitting and adjustment of hearing aid Active Diagnosis [facility] [place] [facility] Diagnosis: ICD-10-CM Z13.5 Encounter for screening for eye and ear disorders Active Diagnosis [facility] Diagnosis: ICD-10-CM E66.9 Obesity, unspecified Active Diagnosis [place] Diagnosis: ICD-10-CM G89.4 Chronic pain syndrome Active Diagnosis [facility] [place] [facility] Diagnosis: ICD-10-CM G89.29 Other chronic pain Active Diagnosis [facility] [place] [facility] Diagnosis: ICD-10-CM Z23 Encounter for immunization Active Diagnosis [facility] [place] [facility] Diagnosis: ICD-10-CM L84 Corns and callosities Active Diagnosis [place] Diagnosis: ICD-10-CM E78.5 Hyperlipidemia, unspecified Active Diagnosis [place] Diagnosis: ICD-10-CM Z02.89 Encounter for other administrative examinations Active Diagnosis [facility] Medications Combined list of outpatient [...] THREE TIMES A DAY NEEDED ORAL ACTIVE [place]YN[place] 2021 [facility] [place] ALFUZOSIN HCL 10MG TAB,SA TAKE ONE TABLET BY MOUTH DAILY ORAL ACTIVE JAIRO-AYE GREGORIOY,CYNTH [place] 2014 [facility] [place] ASPIRIN 81MG TAB,EC TAKE ONE TABLET BY MOUTH ONCE DAILY TO PREVENT STROKE/H EART ATTACK ORAL ACTIVE 08/01/2025 [id number] 5 Erum MAXWELL 2024 120 [place] ASPIRIN 81MG TAB,EC TAKE ONE TABLET BY MOUTH ONCE DAILY TO PREVENT STROKE/H EART ATTACK ORAL DISCONT INUED 08/17/2024 [id number] 4 MARYAM SMALL 2023 120 [facility] [place] ASPIRIN EC (U/D) 81 MG ORAL TBEC TAKE ONE TABLET BY MOUTH ONCE DAILY TO PREVENT STROKE/H EART ATTACK 08/17/2024 [id number] 4 LOKESH SMALL 2023 120 [facility] [place] 10MCG/HR PATCH APPLY 1 PATCH TO SKIN EVERY 7 DAYS FOR PAIN (REMOVE PATCH BEFORE APPLYING A NEW PATCH) TRANSD ERMAL DISCONT INUED BY CHRIS Murrell 02/10/2024 [id number] 4 MARILYN MCNAMARA 2023 4 [facility] [place] [facility] [place] 150MCG FILM,BUCCAL PLACE ONE FILM BETWEEN CHEEK AND GUM UNTIL DISSOLVE D EVERY 12 HOURS FOR PAIN BUCCAL DISCONT INUED (EDIT) 11/23/2024 [id number] 4 ANDERS,BE THANY S 2023 60 [facility] [place] [facility] [facility] [place] 150MCG FILM,BUCCAL PLACE ONE FILM BETWEEN CHEEK AND GUM UNTIL DISSOLVE D EVERY 12 HOURS FOR PAIN BUCCAL DISCONT INUED 09/21/2024 [id number] 4 ANDERS,BE THANY S 2023 60 [facility] [place] [facility] [facility] [place] 150MCG FILM,BUCCAL PLACE ONE FILM BETWEEN CHEEK AND GUM UNTIL DISSOLVE D EVERY 12 HOURS FOR PAIN BUCCAL DISCONT INUED 03/27/2024 [id number] 4 ANDERS,BE THANY S 2023 60 [facility] [place] [facility] [facility] [place] 300MCG FILM,BUCCAL PLACE ONE FILM BETWEEN CHEEK AND GUM UNTIL DISSOLVE D EVERY 12 HOURS FOR PAIN BUCCAL DISCONT INUED (EDIT) 01/25/2025 [id number] 5 ANDERS,BE THANY S 2024 60 [facility] [place] [facility] [facility] [place] 300MCG FILM,BUCCAL PLACE ONE FILM BETWEEN CHEEK AND GUM UNTIL DISSOLVE D EVERY 12 HOURS FOR PAIN BUCCAL DISCONT INUED 12/06/2024 [id number] 5 SURAJ CURTISIAM S 2024 60 [facility] [place] [facility] [facility] [place] 450MCG FILM,BUCCAL PLACE ONE FILM BETWEEN CHEEK AND GUM UNTIL DISSOLVE D EVERY 12 HOURS BUCCAL ACTIVE 05/28/2025 [id number] 5 ANDERS,BE THANY S 2024 60 [facility] [place] [facility] [place] 5MCG/HR PATCH APPLY 1 PATCH TO SKIN EVERY 7 DAYS FOR PAIN (REMOVE PATCH BEFORE APPLYING A NEW PATCH) TRANSD ERMAL DISCONT INUED (EDIT) 01/13/2024 [id number] 4 ANDERS,BE THANY S 2023 4 [facility] [place] [facility] [facility] [place] 7.5MCG/HR PATCH APPLY 1 PATCH TO SKIN EVERY 7 DAYS FOR PAIN (REMOVE PATCH BEFORE APPLYING A NEW PATCH) TRANSD ERMAL DISCONT INUED (EDIT) 01/27/2024 [id number] 4 ANDERS,MARILYN THANY S 2023 2 [facility] [place] [facility] [facility] [place] 75MCG FILM,BUCCAL PLACE ONE FILM BETWEEN CHEEK AND GUM UNTIL DISSOLVE D EVERY 12 HOURS FOR PAIN BUCCAL DISCONT INUED (EDIT) 03/09/2024 [id number] 4 ANDERS,BE THANY S 2023 60 [facility] [place] [facility] [facility] DICLOFENAC EPOLAMINE (EQV-FLECTO R) 1.3% PATCH APPLY 1 PATCH TO SKIN TWICE DAILY NEEDED FOR PAIN TRANSD ERMAL 10/19/2024 [id number] 4 ANDERS,BE THANY S 2023 60 [facility] [place] [facility] [facility] NALOXONE HCL 4MG/SPRAY SOLN,SPRAY, NASAL INSTILL 1 SPRAY ONE NOSTRIL ONE TIME NEEDED FOR OPIOID OVERDOSE CALL 911 WITH ADMINIST RATION. REPEAT WITH SECOND DEVICE IF SYMPTOMS RETURN NASAL DISCONT INUED 03/27/2024 [id number] 4 ANDERS,MARILYN THANY S 2023 2 [facility] [place] [facility] NALOXONE HCL 4MG/SPRAY SOLN,SPRAY, NASAL INSTILL 1 SPRAY ONE NOSTRIL ONE TIME NEEDED FOR OPIOID OVERDOSE CALL 911 WITH ADMINIST RATION. REPEAT WITH SECOND DEVICE IF SYMPTOMS RETURN NASAL 07/05/2024 [id number] SURAJ CURTISM S 2024 2 [facility] [place] [facility] [facility] NALOXONE HCL 4MG/SPRAY SOLN,SPRAY, NASAL INSTILL 1 SPRAY ONE NOSTRIL ONE TIME NEEDED FOR OPIOID OVERDOSE CALL 911 WITH ADMINIST RATION. REPEAT WITH SECOND DEVICE IF SYMPTOMS RETURN NASAL 01/13/2024 [id number] 4 ANDERS,MARILYN THANY S 2023 2 [facility] [place] [facility] [facility] PREGABALIN 225MG CAP,ORAL TAKE ONE CAPSULE BY MOUTH TWICE DAILY FOR PAIN ORAL DISCONT INUED (EDIT) 12/28/2024 [id number] 5 ANDERS,BE THANY S 2024 60 [facility] [place] [facility] PREGABALIN 225MG CAP,ORAL TAKE ONE CAPSULE BY MOUTH TWICE DAILY FOR PAIN ORAL DISCONT INUED 11/23/2024 [id number] 5 ANDERS,BE THANY S 2023 60 [facility] [place] [facility] PREGABALIN 225MG CAP,ORAL TAKE ONE CAPSULE BY MOUTH TWICE DAILY FOR PAIN ORAL DISCONT INUED 08/10/2024 [id number] 4 ANDERS,BE THANY S 2023 60 [facility] [place] [facility] PREGABALIN 225MG CAP,ORAL TAKE ONE CAPSULE BY MOUTH TWICE DAILY FOR PAIN ORAL DISCONT INUED 06/15/2024 [id number] 4 ANDERS,BE THANY S 2023 60 [facility] PREGABALIN 225MG CAP,ORAL TAKE ONE CAPSULE BY MOUTH TWICE DAILY FOR PAIN ORAL DISCONT INUED 01/03/2024 [id number] 4 ANDERS,BE THANY S 2023 60 [facility] [place] [facility] [facility] PREGABALIN 225MG CAP,ORAL TAKE ONE CAPSULE BY MOUTH TWICE DAILY FOR PAIN ORAL 11/18/2023 [id number] 4 ANDERS,BE THANY S 2023 60 [facility] [place] [facility] PREGABALIN 300MG CAP,ORAL TAKE ONE CAPSULE BY MOUTH TWICE DAILY FOR PAIN ORAL ACTIVE 07/16/2025 [id number] 5 ANDERS,BE THANY S 2024 60 [facility] [place] [facility] PREGABALIN 300MG CAP,ORAL TAKE ONE CAPSULE BY MOUTH TWICE DAILY FOR PAIN ORAL DISCONT INUED 05/10/2025 [id number] 5 ANDERS,BE THANY S 2024 60 [facility] [place] [facility] [facility] PREGABALIN 300MG CAP,ORAL TAKE ONE CAPSULE BY MOUTH TWICE DAILY FOR PAIN ORAL DISCONT INUED 03/01/2025 [id number] MARILYN MCNAMARA S 2024 60 [facility] SEMAGLUTIDE (WT LOSS) 0.25MG/0.5M L INJ,SOLN,PE N,0.5ML INJECT 0.25MG SUBCUTAN EOUSLY ONCE A WEEK FOR WEIGHT LOSS SUBCUT ANEOUS ACTIVE 02/12/2025 [id number] LACEY RODAS 2024 4 [facility] [place] TADALAFIL 5MG TAB TAKE ONE TABLET BY MOUTH DAILY ORAL ACTIVE PANCHITO ZAMARRIPA 2014 [facility] [place] Allergies, Adverse Reactions, Alerts Combined list of allergies from Department of Defense and Veterans Affairs facilities. It does not include entries that were removed or entered in error. Substance Category Reaction Severity Reaction type Status Date Reported Comments Source Diphenhydrami ne Drug allergy (disorder) active 5 [facility] DIPHENHYDRAMI NE Propensity to adverse reactions to drug (finding) active 5 [facility] Immunizations Combined list of available immunizations from the Department of Defense and Veterans Affairs facilities. Immunization Series Date Given Administered By Site Reaction Lot Number CVX Code Drug Photo Mask Cleaner Status Comments Source INFLUENZA, HIGH-DOSE, TRIVALENT, PF 2023 ROMAIN RUIZ M LEFT DELTO ID [id number] 135 complet ed [facility] INFLUENZA, HIGH-DOSE, QUADRIVALENT 2022 ALEC POON M LEFT DELTO ID [id number] 197 complet ed Completed Series, [facility] PNEUMOCOCCAL CONJUGATE PCV20, POLYSACCHARID E [id number] CONJUGATE, ADJUVANT, PF 2022 SALVATORE GILMORE LEFT DELTO ID [id number] 216 complet ed [facility] INFLUENZA VACCINE, QUADRIVALENT, ADJUVANTED 2021 [...] QUADRIVALENT 2018 171 complet ed 02, [facility] Administe red by: [facility] Clinician (NPI=Not Provided) . Partner 2 Lot#: [id number] Mfr: [facility]IRUS [facility] [place] [...] FLU,3 YRS (HISTORICAL) 2014 88 complet ed [facility] [place] [facility] FLU,3 YRS (HISTORICAL) 2014 88 complet ed [facility] [place] DTAP, UNSPECIFIED FORMULATION 2006 107 complet ed [facility] [place] DTAP, UNSPECIFIED FORMULATION 2004 107 [facility] ed [facility] [place] PNEUMOCOCCAL POLYSACCHARID E [id number] 2000 33 complet ed n/a [facility] [place] [facility] Results Combined list of recent chemistry, hematology and other laboratory results from Department of Defense and Veterans Affairs, ranging from 15 months to all on record, depending upon the facility. Order Name Results Value Reference Range Date Interpretation Specimen Comments Source ALCOHOL, ETHYL URINE PANEL ETHANOL [MASS/VOLUM E] IN URINE NONE-D ETECTE D - 10 01/14 Specimen Type: URINE Comment: Urine with Cr [...] Provider: RACH MCNAMARA S Report Released Date/Time: Jan 13, 2025 08:58 AM Reporting Lab: [facility] [place] [facility] [address] [facility] [address] Performing Lab: [facility] [place] [facility] [address] [facility] [address] [facility] [place] [facility] ALCOHOL, ETHYL URINE PANEL PH OF URINE 5.1 [pH] 5.0 - 8.0 01/14 Specimen Type: URINE Comment: Urine with Cr [...] Provider: RACH MCNAMARA S Report Released Date/Time: Jan 13, 2025 08:58 AM Reporting Lab: [facility] [address] [facility] [address] Performing Lab: [facility] Re[address] [address] [facility] ALCOHOL, ETHYL URINE PANEL CREATININE [MASS/VOLUM E] IN URINE 74.72 mg/dL 63 - 166 01/14 Specimen Type: URINE Comment: Urine with Cr [...] Provider: RACH MCNAMARA S Report Released Date/Time: Jan 13, 2025 08:58 AM Reporting Lab: [address] [address] Performing Lab: [address] ALCOHOL, ETHYL URINE PANEL SPECIFIC GRAVITY OF URINE 1.008 1.005 - 1.030 01/14 Specimen Type: URINE Comment: Urine with Cr [...] Ordering Provider: RACH MCNAMARA Report Released Date/Time: Jan 13, 2025 08:58 AM Reporting Lab: [address] [address] Performing Lab: [address] [address] [facility] FENTANYL SCREEN PANEL FENTANYL [PRESENCE] IN URINE BY SCREEN METHOD NONE-D ETECTE D - 1.00 01/14 Specimen Type: URINE Comment: Urine with Cr [...] and 11 may have been adulterated . Fentanyl confirmatio n not sent by lab. Ordering Provider: RACH MCNAMARA Report Released Date/Time: Jan 13, 2025 08:58 AM Reporting Lab: [address] [address] Performing Lab: [address] [address] [facility] FENTANYL SCREEN PANEL PH OF URINE 5.1 [pH] 5.0 - 8.0 01/14 Specimen Type: URINE Comment: Urine with Cr [...] and 11 may have been adulterated . Fentanyl confirmatio n not sent by lab. Ordering Provider: RACH MCNAMARA Report Released Date/Time: Jan 13, 2025 08:58 AM Reporting Lab: [address] [address] Performing Lab: [address] [address] [facility] FENTANYL SCREEN PANEL CREATININE [MASS/VOLUM E] IN URINE 74.95 mg/dL 63 - 166 01/14 Specimen Type: URINE Comment: Urine with Cr [...] and 11 may have been adulterated . Fentanyl confirmatio n not sent by lab. Ordering Provider: RACH MCNAMARA Report Released Date/Time: Jan 13, 2025 08:58 AM Reporting Lab: [facility] [place] [facility] [address] [facility] [address] Performing Lab: [facility] [address] [facility] [address] [facility] FENTANYL SCREEN PANEL SPECIFIC GRAVITY OF URINE 1.008 1.005 - 1.030 01/14 Specimen Type: URINE Comment: Urine with Cr [...] and 11 may have been adulterated . Fentanyl confirmatio n not sent by lab. Ordering Provider: RACH MCNAMARA Report Released Date/Time: Jan 13, 2025 08:58 AM Reporting Lab: [facility] [place] [address] [address] Performing Lab: [facility]N [facility] [address] [address] [facility]N [facility] AMPHETAMI GARCIA SCREEN PANEL AMPHETAMINE +METHAMPHET AMINE [PRESENCE] IN URINE BY SCREEN METHOD NONE-D ETECTE D - 1000 01/14 Specimen Type: URINE Comment: Urine with Cr [...] Ordering Provider: RACH MCNAMARA Report Released Date/Time: Jan 13, 2025 08:58 AM Reporting Lab: [facility]TR[facility] [address] [address] Performing Lab: [facility]ITALN [facility]ITAL[facility]ETS [address] [address] [facility]ADIROND[facility] AMPHETAMI GARCIA SCREEN PANEL PH OF URINE 5.1 [pH] 5.0 - 8.0 01/14 Specimen Type: URINE Comment: Urine with Cr [...] Provider: RACH MCNAMARA S Report Released Date/Time: Jan 13, 2025 08:58 AM Reporting Lab: [facility] [address] [address] Performing Lab: [address] [address] [facility] AMPHETAMI GARCIA SCREEN PANEL CREATININE [MASS/VOLUM E] IN URINE 74.72 mg/dL 63 - 166 01/14 Specimen Type: URINE Comment: Urine with Cr [...] Ordering Provider: RACH MCNAMARA Report Released Date/Time: Jan 13, 2025 08:58 AM Reporting Lab: [facility] Re[address]ult[address] [address] Performing Lab: [address] [address] [facility] AMPHETAMI GARCIA SCREEN PANEL SPECIFIC GRAVITY OF URINE 1.008 1.005 - 1.030 01/14 Specimen Type: URINE Comment: Urine with Cr [...] Ordering Provider: RACH MCNAMARA Report Released Date/Time: Jan 13, 2025 08:58 AM Reporting Lab: [address] [address] Performing Lab: [address] [address] [facility] BENZODIAZ EPINES SCREEN PANEL BENZODIAZEP JOVANY [PRESENCE] IN URINE BY SCREEN METHOD NONE-D ETECTE D - 200 01/14 Specimen Type: URINE Comment: Urine with Cr [...] Ordering Provider: RACH MCNAMARA Report Released Date/Time: Jan 13, 2025 08:58 AM Reporting Lab: [address] [address] Performing Lab: [address] [address] [facility] BENZODIAZ EPINES SCREEN PANEL PH OF URINE 5.1 [pH] 5.0 - 8.0 01/14 Specimen Type: URINE Comment: Urine with Cr [...] Provider: RACH MCNAMARA S Report Released Date/Time: Jan 13, 2025 08:58 AM Reporting Lab: [facility] [place] [address] [address] Performing Lab: [facility]N [facility]USE[address] [address] [facility] BENZODIAZ EPINES SCREEN PANEL CREATININE [MASS/VOLUM E] IN URINE 74.72 mg/dL 63 - 166 01/14 Specimen Type: URINE Comment: Urine with Cr [...] Ordering Provider: RACH MCNAMARA Report Released Date/Time: Jan 13, 2025 08:58 AM Reporting Lab: [facility] [address] [address] Performing Lab: [address] [address] [facility] BENZODIAZ EPINES SCREEN PANEL SPECIFIC GRAVITY OF URINE 1.008 1.005 - 1.030 01/14 Specimen Type: URINE Comment: Urine with Cr [...] Ordering Provider: RACH MCNAMARA Report Released Date/Time: Jan 13, 2025 08:58 AM Reporting Lab: [facility]USE[address] [address] Performing Lab: [address] [address] [facility] CANNABINO IDS SCREEN PANEL CANNABINOID S [PRESENCE] IN URINE BY SCREEN METHOD NONE-D ETECTE D - 50 01/14 Specimen Type: URINE Comment: Urine with Cr [...] Ordering Provider: RACH MCNAMARA Report Released Date/Time: Jan 13, 2025 08:58 AM Reporting Lab: [facility] [employer] [address] [address] Performing Lab: [facility] Re[address] [address] [facility] CANNABINO IDS SCREEN PANEL PH OF URINE 5.1 [pH] 5.0 - 8.0 01/14 Specimen Type: URINE Comment: Urine with Cr [...] Ordering Provider: RACH MCNAMARA Report Released Date/Time: Jan 13, 2025 08:58 AM Reporting Lab: [facility] [employer]USE[address] [address] Performing Lab: [facility] [employer]USE[address] [address] [facility] Re5ultADIRONDACK MEDICAL CENTER CANNABINO IDS SCREEN PANEL CREATININE [MASS/VOLUM E] IN URINE 74.72 mg/dL 63 - 166 01/14 Specimen Type: URINE Comment: Urine with Cr [...] Provider: RACH MCNAMARA S Report Released Date/Time: Jan 13, 2025 08:58 AM Reporting Lab: [facility] [place] [facility] [address] [facility] [address] Performing Lab: [facility]RSPRINGHILL MEDICAL CENTERTRN [facility]PITALUSETS [address] [address] [facility]RDECATUR [facility]ITALN [facility] CANNABINO IDS SCREEN PANEL SPECIFIC GRAVITY OF URINE 1.008 1.005 - 1.030 01/14 Specimen Type: URINE Comment: Urine with Cr [...] Provider: RACH MCNAMARA S Report Released Date/Time: Jan 13, 2025 08:58 AM Reporting Lab: [facility]RSPR[facility] CENTERTRN [facility]ITALUSETS [address] [address] Performing Lab: [facility]TRN [facility]ITALUSE[address] [address] [facility]OS[facility]ITALUSE [facility] BUPRENORP ZULEYMA SCREEN PANEL BUPRENORPHI NE [PRESENCE] IN URINE BY SCREEN METHOD NONE-D ETECTE D 01/14 Specimen Type: URINE Comment: Urine with Cr [...] Provider: RACH MCNAMARA S Report Released Date/Time: Jan 13, 2025 08:58 AM Reporting Lab: [facility]RS[facility] CENTERTRN [facility]ITALUSETS [address] [address] Performing Lab: [address] [address] [facility] BUPRENORP ZULEYMA SCREEN PANEL PH OF URINE 5.1 [pH] 5.0 - 8.0 01/14 Specimen Type: URINE Comment: Urine with Cr [...] Ordering Provider: RACH MCNAMARA Report Released Date/Time: Jan 13, 2025 08:58 AM Reporting Lab: [address] [address] Performing Lab: [address] [address] [facility] BUPRENORP ZULEYMA SCREEN PANEL CREATININE [MASS/VOLUM E] IN URINE 74.72 mg/dL 63 - 166 01/14 Specimen Type: URINE Comment: Urine with Cr [...] Ordering Provider: RACH MCNAMARA Report Released Date/Time: Jan 13, 2025 08:58 AM Reporting Lab: [address] [address] Performing Lab: [address] [address] [facility] BUPRENORP ZULEYMA SCREEN PANEL SPECIFIC GRAVITY OF URINE 1.008 1.005 - 1.030 01/14 Specimen Type: URINE Comment: Urine with Cr [...] Ordering Provider: RACH MCNAMARA Report Released Date/Time: Jan 13, 2025 08:58 AM Reporting Lab: [address] [address] Performing Lab: [address] [address] [facility] COCAINE SCREEN PANEL BENZOYLECGO NINE [PRESENCE] IN URINE BY SCREEN METHOD >150 NG/ML NONE-D ETECTE D - 300 01/14 Specimen Type: URINE Comment: Urine with Cr [...] Ordering Provider: RACH MCNAMARA Report Released Date/Time: Jan 13, 2025 08:58 AM Reporting Lab: [address] [address] Performing Lab: [address] [address] [facility] COCAINE SCREEN PANEL PH OF URINE 5.1 [pH] 5.0 - 8.0 01/14 Specimen Type: URINE Comment: Urine with Cr [...] Provider: RACH MCNAMARA S Report Released Date/Time: Jan 13, 2025 08:58 AM Reporting Lab: [facility] [place] [facility] [address] [facility] [address] Performing Lab: [facility] [address] [facility] [address] [facility] COCAINE SCREEN PANEL CREATININE [MASS/VOLUM E] IN URINE 74.72 mg/dL 63 - 166 01/14 Specimen Type: URINE Comment: Urine with Cr [...] Ordering Provider: RACH MCNAMARA Report Released Date/Time: Jan 13, 2025 08:58 AM Reporting Lab: [facility] [place] [facility] [address] [facility] [address] Performing Lab: [facility]N [facility]ITAL[facility] [address] [address] [facility] COCAINE SCREEN PANEL SPECIFIC GRAVITY OF URINE 1.008 1.005 - 1.030 01/14 Specimen Type: URINE Comment: Urine with Cr [...] Ordering Provider: RACH MCNAMARA Report Released Date/Time: Jan 13, 2025 08:58 AM Reporting Lab: [facility] [place] [facility] [address] [facility] [address] Performing Lab: [facility]USE[address] [address] [facility] [place] SCREEN PANEL PH OF URINE 5.1 [pH] 5.0 - 8.0 01/14 Specimen Type: URINE Comment: Urine with Cr [...] Ordering Provider: RACH MCNAMARA Report Released Date/Time: Jan 13, 2025 08:58 AM Reporting Lab: [address] [address] Performing Lab: [address] [address] [facility] [place] SCREEN PANEL CREATININE [MASS/VOLUM E] IN URINE 74.72 mg/dL 63 - 166 01/14 Specimen Type: URINE Comment: Urine with Cr [...] Ordering Provider: RACH MCNAMARA Report Released Date/Time: Jan 13, 2025 08:58 AM Reporting Lab: [address] [address] Performing Lab: [address] [address] [facility] [place] SCREEN PANEL SPECIFIC GRAVITY OF URINE 1.008 1.005 - 1.030 01/14 Specimen Type: URINE Comment: Urine with Cr [...] Provider: RACH MCNAMARA S Report Released Date/Time: Jan 13, 2025 08:58 AM Reporting Lab: [facility] [address] [facility] [address] Performing Lab: [facility] [address] [facility] [place] SCREEN PANEL METHADONE [PRESENCE] IN URINE BY SCREEN METHOD NONE-D ETECTE D - 300 01/14 Specimen Type: URINE Comment: Urine with Cr [...] Provider: RACH MCNAMARA S Report Released Date/Time: Jan 13, 2025 08:58 AM Reporting Lab: [facility] [address] Performing Lab: [facility] [address] [facility] OPIATES SCREEN PANEL OPIATES [PRESENCE] IN URINE BY SCREEN METHOD >300 NG/ML NONE-D ETECTE D - 300 01/14 Specimen Type: URINE Comment: Urine with Cr [...] Provider: RACH MCNAMARA S Report Released Date/Time: Jan 13, 2025 08:58 AM Reporting Lab: [facility]ITALUSETS [address] [address] Performing Lab: [address] [address] [facility] OPIATES SCREEN PANEL PH OF URINE 5.1 [pH] 5.0 - 8.0 01/14 Specimen Type: URINE Comment: Urine with Cr [...] Ordering Provider: RACH MCNAMARA Report Released Date/Time: Jan 13, 2025 08:58 AM Reporting Lab: [address] [address] Performing Lab: [address] [address] [facility] OPIATES SCREEN PANEL CREATININE [MASS/VOLUM E] IN URINE 74.72 mg/dL 63 - 166 01/14 Specimen Type: URINE Comment: Urine with Cr [...] Ordering Provider: RACH MCNAMARA Report Released Date/Time: Jan 13, 2025 08:58 AM Reporting Lab: [address] [address] Performing Lab: [address] [address] [facility] OPIATES SCREEN PANEL SPECIFIC GRAVITY OF URINE 1.008 1.005 - 1.030 01/14 Specimen Type: URINE Comment: Urine with Cr [...] Ordering Provider: RACH MCNAMARA Report Released Date/Time: Jan 13, 2025 08:58 AM Reporting Lab: [facility] [address] Performing Lab: [address] [address] [facility] OXYCODONE SCREEN PANEL OXYCODONE [PRESENCE] IN URINE BY SCREEN METHOD NONE-D ETECTE D - 100 01/14 Specimen Type: URINE Comment: Urine with Cr [...] Ordering Provider: RACH MCNAMARA Report Released Date/Time: Jan 13, 2025 08:58 AM Reporting Lab: [address] [address] Performing Lab: [address] [address] [facility] OXYCODONE SCREEN PANEL PH OF URINE 5.1 [pH] 5.0 - 8.0 01/14 Specimen Type: URINE Comment: Urine with Cr [...] Ordering Provider: RACH MCNAMARA Report Released Date/Time: Jan 13, 2025 08:58 AM Reporting Lab: [facility] [place] [facility] [address] [facility] [address] Performing Lab: [facility] [place] [facility] [address] [facility] [address] [facility] OXYCODONE SCREEN PANEL CREATININE [MASS/VOLUM E] IN URINE 74.72 mg/dL 63 - 166 01/14 Specimen Type: URINE Comment: Urine with Cr [...] Ordering Provider: RACH MCNAMARA Report Released Date/Time: Jan 13, 2025 08:58 AM Reporting Lab: [facility] [place] [facility] [address] [facility] [address] Performing Lab: [facility] [place] [address] [address] [facility] OXYCODONE SCREEN PANEL SPECIFIC GRAVITY OF URINE 1.008 1.005 - 1.030 01/14 Specimen Type: URINE Comment: Urine with Cr [...] Provider: RACH MCNAMARA S Report Released Date/Time: Jan 13, 2025 08:58 AM Reporting Lab: [facility] [place] [facility] [address] [facility] [address] Performing Lab: [facility] [place] [address] [address] [facility] [facility] Vital Signs Combined list of inpatient and outpatient Vital Signs from Department of [facility] and [facility], ranging from 12 months to all on record, depending upon the facility. Vital Sign Value Date Comments Source WEIGHT 274 01/20/2025 09:09:14 [facility] [place] [place] [facility] BMI 37 kg/m2 01/20/2025 09:09:14 [facility] [place] [facility] SYSTOLIC BLOOD PRESSURE 114 08/22/19 13:27:23 [place] DIASTOLIC BLOOD PRESSURE 72 025 13:27:23 [place] PULSE OXIMETRY 96 08/21/2024 13:27:23 [place] WEIGHT 285.2 08/21/2024 13:27:23 [place] BMI 39 kg/m2 08/21/2024 13:27:23 [place] TEMPERATURE 97.5 08/21/2024 13:27:23 [place] PULSE 86 08/21/2024 13:27:23 [place] Encounters Combined list of: 1) Encounters [facility] going backup to the last 18 months, not all [place] inpatient encounters are included; 2) Encounters from the Department of [facility] facilities going backup to 280 months. Location Location Details Encounter Type Encounter Number Reason For Visit Attending Provider ADM Date DC Date Status Disposition Source [facility] Outpatient Encounter [id number] Diagnos is: ICD-10- CM Z02.89 Encount er for other adminis trative examina MICAELA Wagoner 08/14 [place] [facility] [place] [facility] [place] [facility] Outpatient Encounter [id number] 08/16 [place] [facility] [place] [facility] [place] [facility] Outpatient Encounter [id number] 08/16 [place] [facility] [place] [facility] OFFICE O/[place] 40 MIN [id number] Diagnos is: ICD-10- CM E78.5 Hyperli pidemia , unspeci fied TAYLOR SMALL 08/16 [facility] [place] [facility] En[facility] [id number] 08/21 [facility] [place] En[facility] [id number] 08/22 [facility] [place] MTMS BY PHARM ADDL 15 MIN [id number] Diagnos is: ICD-10- CM M54.50 Low back pain, unspeci fied RICKY MCNAMARA S 08/23 [facility] En[facility] [id number] 08/26 [facility] [place] OFF[place] 40 MIN [id number] Diagnos is: ICD-10- CM G89.29 Other chronic pain KUPFERSCHM ID,HUNG B 08/27 [facility] Encounter [id number] 08/29 [facility] [place] MTMS BY PHARM ADDL 15 MIN [id number] Diagnos is: ICD-10- CM M54.50 Low back pain, unspeci lexied RICKY MCNAMARA S 08/30 [facility] HEARING AID FITTING/CH ECKING [id number] Diagnos is: ICD-10- CM Z46.1 Encount er for fitting and adjustm ent of hearing aid Cinda GRANADOS 08/30 [facility] Out[facility] Encounter [id number] 09/05 [facility] [place] MTMS BY PHARM ADDL 15 MIN [id number] Diagnos is: ICD-10- CM M54.50 Low back pain, unspeci fied ANDERS,BET ROBEL S 09/06 [facility] [place] Encounter [id number] 09/06 [facility] [place] Out[facility] Encounter [id number] 09/12 [facility] [place] MTMS BY PHARM ADDL 15 MIN [id number] Diagnos is: ICD-10- CM M54.50 Low back pain, unspeci fied ANDERS,BET ROBEL S 09/13 [facility] Out[facility] Encounter [id number] 09/19 [facility] [place] MTMS BY PHARM ADDL 15 MIN [id number] Diagnos is: ICD-10- CM M54.50 Low back pain, unspeci fied ANDERS,BET ROBEL S 09/20 [facility] Out[facility] Encounter [id number] 09/24 [facility] [place] Encounter [id number] 09/26 [facility] [place] MTMS BY PHARM ADDL 15 MIN [id number] Diagnos is: ICD-10- CM M54.50 Low back pain, unspeci fied RICKY MCNAMARA ROBEL S 09/27 [facility] Out[facility] Encounter [id number] 09/27 [facility] [place] HEARING AID REPAIR/MOD IFYING [id number] Diagnos is: ICD-10- CM Z46.1 Encount er for fitting and adjustm ent of hearing aid SENIORALBERT 09/30 [facility] [place] [facility] [place] OFFICE O/P EST LOW 20 MIN [id number] Diagnos is: ICD-10- CM L84 Corns and callosi ties [place] [facility] Encounter [id number] 10/17 [facility] [place] MTMS BY PHARM ADDL 15 MIN [id number] Diagnos is: ICD-10- CM M54.50 Low back pain, unspeci fied RICKY MCNAMARA S 10/18 [facility] [place] [facility] [place] QNHP OL DIG ASSMT&MGMT 5-10 [id number] Diagnos is: ICD-10- CM M54.50 Low back pain, unspeci fied PRANAV VIRAMONTES 10/18 [place] [facility] Out[facility] Encounter [id number] 11/11 [facility] [place] MTMS BY PHARM ADDL 15 MIN [id number] Diagnos is: ICD-10- CM M54.50 Low back pain, unspeci fied ANDERSRICKY Altman 11/12 [facility] [place] En[facility] [id number] 11/27 [facility] [place] Out[facility] Encounter [id number] 12/03 [facility] [place] QNHP OL DIG ASSMT&MGMT 5-10 [id number] Diagnos is: ICD-10- CM M54.50 Low back pain, unspeci fied RICKY MCNAMARA 12/03 [facility] [place] Encounter [id number] 12/12 [facility] [place] MTMS BY PHARM ADDL 15 MIN [id number] Diagnos is: ICD-10- CM M54.50 Low back pain, unspeci fied RICKY MCNAMARA S 12/13 [facility] En[facility] [id number] 12/13 [facility] [place] Encounter [id number] 12/13 [facility] [place] En[facility] [id number] 12/25 [facility] MTMS BY PHARM ADDL 15 MIN [id number] Diagnos is: ICD-10- CM M54.50 Low back pain, unspeci RICKY Gastelum S 12/27 [facility] En[facility] [id number]/09 [facility] [place] MTMS BY PHARM ADDL 15 MIN [id number] 1. Diagnos is: ICD-10- CM M54.50 Low back pain, unspeci RICKY Gastelum S 01/10 [facility] HEARING AID REPAIR/MOD IFYING [id number] 1. Diagnos is: ICD-10- CM Z46.1 Encount er for fitting and adjustm ent of hearing aid SENIOR,ALBERT OLE L 01/13 [facility] En[facility] [id number] 02/06 [facility] [place] MTMS BY PHARM ADDL 15 MIN [id number] Diagnos is: ICD-10- CM M54.50 Low back pain, unspeci RICKY Gastelum S 02/07 [facility] [place] [place]UN[place] ADMIN [id number] Diagnos is: ICD-10- CM Z23 Encount er for immuniz atralf ONEILASHU 02/07 [facility] Out[facility] En[facility] [id number] 02/07 [facility] HC PRO PHONE CALL 5-10 MIN [id number] Diagnos is: ICD-10- CM G89.29 Other chronic pain URSULA SCOTT 02/17 [facility] Out[facility] En[facility] [id number] 02/24 [facility] [place] MTMS BY PHARM ADDL 15 MIN [id number] Diagnos is: ICD-10- CM M54.50 Low back pain, unspeci fied RICKY MCNAMARA S 02/25 [facility] En[facility] [id number] 03/20 [facility] [place] MTMS BY PHARM ADDL 15 MIN [id number] 1. Diagnos is: ICD-10- CM M54.50 Low back pain, unspeci fied RICKY MCNAMARA S 03/21 [facility] En[facility] [id number] [facility] Out[facility] Encounter [id number] 04/21 [facility] MTMS BY PHARM ADDL 15 MIN [id number] 1. Diagnos is: ICD-10- CM M54.50 Low back pain, unspeci fied RICKY MCNAMARA S 04/22 [facility] En[facility] [id number] 04/22 [facility] Out[facility] Encounter [id number]/22 [facility] MTMS BY PHARM ADDL 15 MIN [id number] Diagnos is: ICD-10- CM M54.50 Low back pain, unspeci fied RICKY MCNAMARA S 05/23 [facility] En[facility] [id number] 05/29 [facility] En[facility] [id number]/04 [facility] OFF[place] HI 40 MIN [id number] Diagnos is: ICD-10- CM M54.50 Low back pain, unspeci fied CUTLERNATHANIEL MELODY S 06/05 [facility] HEARING AID FITTING/CH ECKING [id number] Diagnos is: ICD-10- CM Z46.1 Encount er for fitting and adjustm ent of hearing aid Cinda GRANADOS 06/05 [facility] En[facility] [id number] 06/05 [facility] Out[facility] Encounter [id number] 06/26 [facility] MTMS BY PHARM ADDL 15 MIN [id number] Diagnos is: ICD-10- CM M54.50 Low back pain, unspeci fied RICKY MCNAMARA S 06/27 [facility] En[facility] [id number] 06/27 [facility] OFF[place] 60 MIN [id number] Diagnos is: ICD-10- CM G89.4 Chronic pain syndrom e ROGELIO LAY THI 06/30 [facility] PT EVAL MOD COMPLEX 30 MIN [id number] Diagnos is: ICD-10- CM G89.4 Chronic pain syndrom e NAVAURSULA COUGHLIN EEN 06/30 [facility] [place] BHV ASSMT/REAS SESSMENT [id number] Diagnos is: ICD-10- CM G89.4 Chronic pain syndrom e JIMMY PALNika DE PAZ 06/30 [facility] Out[facility] Encounter [id number] 07/24 [facility] MTMS BY PHARM ADDL 15 MIN [id number] Diagnos is: ICD-10- CM M54.50 Low back pain, unspeci RICKY Gastelum S 07/25 [facility] En[facility] [id number] 08/21 [facility] [place] OFFICE O/P EST MOD 30 MIN [id number] Diagnos is: ICD-10- CM E66.01 Morbid (severe ) obesity due to excess calorie s JOHN PAUL MAXWELL A 08/21 [place] [facility] Encounter [id number] 08/21 [facility] En[facility] [id number] 08/22 [facility] Encounter [id number] 08/28 [facility] MTMS BY PHARM ADDL 15 MIN [id number] Diagnos is: ICD-10- CM M54.50 Low back pain, unspeci fied RICKY MCNAMARA S 08/29 [facility] [place] HEARING AID FITTING/CH ECKING [id number] 1. Diagnos is: ICD-10- CM Z46.1 Encount er for fitting and adjustm ent of hearing aid Cinda GRANADOS 09/02 [facility] [place] [facility] EST LOW 20 MIN [id number] 1BY. 87 Diagnos is: ICD-10- CM L60.0 Ingrowi DAWSON Reeder F 09[place]03 [place] [facility] ADDL 15 MIN [id number] Diagnos is: ICD-10- CM E66.9 Obesity , unspeci fiNIKA Suarez IE 09/05 [place] [facility] En[facility] [id number] 09/08 [facility] Encounter [id number] 09/25 [facility] MTMS BY PHARM ADDL 15 MIN [id number] Diagnos is: ICD-10- CM M54.50 Low back pain, unspeci fied RICKY MCNAMARA S 09/26 [facility] [place] [place] [facility] IMG RTA DETCJ/MNTR DS STAFF [id number] Diagnos is: ICD-10- CM Z13.5 Encount er for screeni ng for eye and ear disorde rs SERGO JACK 10/15 [facility] [place] [facility] Outpatient Encounter [id number] 1QA. 45 Diagnos is: ICD-10- CM Z13.5 Encount er for screeni ng for eye and ear disorde rs SLOAN BECKER 10/16 [facility] [place] [place] [facility] Outpatient Encounter [id number] 10/22 [facility] [place] [place] [facility] MTMS BY PHARM ADDL 15 MIN [id number] Diagnos is: ICD-10- CM E66.01 Morbid (severe ) obesity due to excess calorie s NIKA RODAS 11[place]03 [place] [facility] Out[facility] Encounter [id number] 11/07 [facility] En[facility] [id number] 11/17 [facility] Encounter [id number] 11/18 [facility] Encounter [id number] 11/18 [facility] En[facility] [id number] 11/24 [facility] HEARING AID REPAIR/MOD IFYING [id number] Diagnos is: ICD-10- CM Z46.1 Encount er for fitting and adjustm ent of hearing aid Cinda GRANADOS 11/25 [facility] MTMS BY PHARM ADDL 15 MIN [id number] Diagnos is: ICD-10- CM M54.50 Low back pain, unspeci fied RICKY MCNAMARA S 11/25 [facility] En[facility] [id number] 11/25 [facility] Encounter [id number] 12/04 [facility] En[facility] [id number] Diagnos is: ICD-10- CM E66.811 Obesity , class 1 MANEKAS,DI NA L 12/18 [facility] [place] MTMS BY PHARM ADDL 15 MIN [id number] Diagnos is: ICD-10- CM E66.01 Morbid (severe ) obesity due to excess calorie s NIKA RODAS IE 01/05 [place] [facility] NQHP OL DIG ASSMT&MGMT 5-10 [id number] Diagnos is: ICD-10- CM E66.01 Morbid (severe ) obesity due to excess calorie s CRISTIANE FRANCO J 01/07 [facility] [place] [facility] Outpatient Encounter [id number] 01/12 [place] [facility] [place] [facility] Outpatient Encounter [id number] 01/13 [facility] [place] [place] [facility] [place] MTMS BY PHARM PAID SEARCH ANALYST 15 MIN [id number] Diagnos is: ICD-10- CM E66.01 Morbid (severe ) obesity due to excess calorie s NIKA RODAS IE 01/13 [facility] [place] OFFICE O/P EST LOW 20 MIN [id number] Diagnos is: ICD-10- CM L60.0 Ingrowi ng DAWSON Moore ES F 01/14 [facility] IE [place] MTMS BY PHARM ADDL 15 MIN [id number] Diagnos is: ICD-10- CM E66.01 Morbid (severe ) obesity due to excess calorie s NIKA RODAS IE 01/14 [place] [facility] [place] [facility] Outpatient Encounter [id number] Diagnos is: ICD-10- CM E66.811 Obesity , class 1 MANEKAS,DI NA L 01/16 [place] [facility] [place] [facility] Social History Combined list of available smoking, tobacco, and other social history from Department of Defense and Veterans Affairs facilities. Social History Type Response Date Comment Source Tobacco smoking status [facility]-TOBAC[facility] USE FORMER CIGARETTES 06/30/2024 [facility] [place] [facility] History of tobacco use [facility] NEVER USED OTHER TYPE 06/30/2024 [facility] [place] [facility] History of tobacco use PA-TOBACCO FORMER USER 11/01/2022 [place] [facility] [place] History of tobacco use PA-TOBACCO FORMER USER 10/19/2020 [place] History of tobacco use PA-TOBACCO NEVER USED 08/16/2018 [place] History of tobacco use QUIT TOBACCO USE > 7 YEARS AGO 08/16/2017 stopped smoking over 25 years ago [place] History of tobacco use QUIT TOBACCO USE > 7 YEARS AGO 08/15/2016 quit 25 years ago [place] History of tobacco use QUIT TOBACCO USE > 7 YEARS AGO 08/13/2015 smoked cig, ~20/day, quit 20 yrs ago [place] History of tobacco use QUIT TOBACCO USE > 7 YEARS AGO 08/10/2014 quit 20+ yrs ago [place] This section is an empty social history section. [facility] Plan of Care List of future care activities from Department of Veterans Affairs facilities. Additional future care activities may be listed in the Assessment and Plan section. Date/Time Care Activity Care Activity Detail Facili ty 01/23/2025 AMBULATORY - MEDICINE AMBULATORY - MEDICI [facility]MERLY [facility] [place] [facility] Advance Directives List of completed, amended, or rescinded Advance Directives on record at Department of Veterans Affairs facilities. An actual copy of the Directive is not included. Date Advance Directive Provider Source 12/02/2020 ADVANCE DIRECTIVE ZAIRE COMER
--- OUTSIDE RECORDS SUMMARY | 2025-01-20 11:04 | XMS_ITS | Clinical Summary ---
Author Organization [facility] Address [address] [place] [address] Care Team Providers Care Crewman Armoured Personnel Carrier M113 Name Role Phone Pcp, No Primary Care [...] 62 10/12/2023 11:36 PM EDT Temperature 36.2 C (97.1 F) 10/12/2023 11:36 PM EDT Respiratory Rate 18 10/12/2023 11:36 PM EDT Oxygen Saturation 93% 10/12/2023 11:36 PM EDT Inhaled Oxygen Concentration - - Weight - - Height - - Body Mass Index - - Plan of Treatment Health Maintenance Due Date Last Done Comments Hepatitis C Virus Screening 1955 Colonoscopy 2001 Pneumococcal Vaccines 50+ (1 of 1 - PCV) 2006 Zoster (Shingles) Vaccine (1 of 2) 2006 COVID-19 Vaccine (4 - 2024-25 season) 2024 03/15/2021, 07/30/2020, 07/09/2020 Influenza Vaccine 12/26/2024 03/08/2023, , 02/10/2022, Additional history exists RSV Vaccine 60 years and older and Patients (1 - 1-dose 75+ series) 2031 DTaP/Tdap/Td Vaccines (2 - Td or Tdap) 10/11/2033 10/12/2023 Hepatitis B Vaccines Aged Out No long er eligible based on patient's age to complete this topic Insurance [employer] MEDICARE [facility] [employer] Care Teams Crewman Armoured Personnel Carrier M113 Relationship Specialty Start Date End Date Pcp, No PCP - General General Medicine 10/12/23
--- OUTSIDE RECORDS SUMMARY | 2025-01-20 11:04 | XMS_ITS | Clinical Summary ---
Author Organization [address] [place] [address] [place] [phone] Phone Care Team Providers Care Manager Mba Name Role Phone Sandy Lemos MD Primary Care Provider [phone] Medications alfuzosin (UROXATRAL) 10 mg 24 hr [...] Vitamin D deficiency 02/19/2023 Aortic root dilatation (CMS/[facility] V24) 08/01/2022 Overview (04/05/2024): Echo 06/2022. Last [...] episodes of bradycardia. GERD (gastroesophageal reflux disease) 1 Lumbar stenosis 05/30/2020 Overview (04/05/2024): Dr. Patel [...] Severe obesity (BMI 35.0-39. 9) with comorbidity (CMS/HCC V24, [facility] V28) 06/15/2005 Overview (04/05/2024): s/p gastric bypass in MAR 2003 Encounters Date Type Department Care Team Description 10/31/2024 Telephone [facility] - [facility] [address] [facility] [address] [place] [address] Edwina Stephens NP from Last 3 Months Immunizations Name Administration Dates Next Due H1N1 Inj Preservative Free 07/19/2009 Hepatitis B (Doafanw-T-Ongyn , Recombivax HB-Adult) 19yo and older 01/05/2016,08/04/2015,07/07/2015 [...] Date Site/Laterality Comments STOMACH SURGERY 03/2003 PROCEDURE: [place] UNLISTED PROCEDURE STOMACH; COMMENT: gastric bypass surgery SHOULDER SURGERY 03/2006 PROCEDURE: HISTORICAL SHOULDER SURGERY; COMMENT: left and right WRIST MASS EXCISION PROCEDURE: CA EXCISION GANGLION WRIST DORSAL/VOLAR PRIMARY; COMMENT: right COLONOSCOPY 07/15/2007 PROCEDURE: CA COLONOSCOPY FLX DX W/COLLJ SPEC WHEN PFRMD; COMMENT: Negative OTHER SURGICAL HISTORY 1995 PROCEDURE: CA ARTHROPLASTY ANKLE W/IMPLANT; COMMENT: left MULTIPLE TOOTH EXTRACTIONS PROCEDURE: HISTORICAL DENTAL EXTRACTION; COMMENT: Dr. Gotti KNEE ARTHROSCOPY 07/2012 PROCEDURE: CA ARTHROSCOPY AID TX SPINE&/FX KNEE W/O FIXJ; [...] hemorrhoids, repeat 5 years. ESOPHAGOGASTRODUODENOSCOPY 09/22/2020 PROCEDURE: CA EGD TRANSORAL BIOPSY SINGLE/MULTIPLE; COMMENT: Visually normal [...] 11/28/2023 10:13 AM EDT Plan of Treatment Health Maintenance Due Date Last Done Comments Falls Risk Assessment 05/05/2022 Social Influencers of Health Screening 05/05/2022 Colorectal Cancer Screening: Colonoscopy 06/18/2023 06/18/2018 COVID-19 Vaccine ( season) 2024 03/15/2021, 07/30/2020, 07/09/2020 Depression Screening 05/28/2024 Hypertension/CHF/CAD Annual BMP Blood Test 10/15/2024 07/04/2023 Influenza Vaccine (#1) 2025 , 03/11/2022, 02/10/2022, Additional history exists Cholesterol Screening [...] Procedure Name Priority Date/Time Associated Diagnosis Comments ANNUAL BMP BLOOD TEST Routine 07/04/2023 LIPID PANEL Routine 02/25/2023 ABDOMINAL AORTIC ANEURYSM SCRREN Routine 07/29/2021 COLONOSCOPY Routine 06/18/2018 HEPATITIS C SCREENING Routine 09/21/2012 from Last 3 Months or Most Recently Relevant to Health Maintenance Results * Annual BMP Blood Test (07/04/2023) Pathologist [facility] Annual BMP Blood Test ABSTRACTED Historical Provider HEALTH MAINTENANCE Final Result * (ABNORMAL) Lipid panel (02/25/2023) [facility] LDL/HDL Ratio 3 0 - 4 Triglycerides 94 0 - 150 mg/dL Cholesterol 204(A) 0 - 200 mg/dL HDL 75 >=40 mg/dL LDL Cholesterol 111(A) 0 - 100 mg/dL Blood Venous blood specimen / Unknown Historical Provider LAB BLOOD ORDERABLES [facility] l Result * Abdominal Aortic Aneurysm Screen (07/29/2021) Pathologist [facility] Abdominal Aortic Aneurysm (AAA) Screening ABSTRACTED Anatomical Region Laterality Modality Other Historical Provider HEALTH MAINTENANCE Final Result * Colonoscopy (06/18/2018) Colonoscopy ABSTRACTED Anatomical Region Laterality Modality Other Historical Provider HEALTH MAINTENANCE Final Result * Hepatitis C Screening (09/21/2012) Hepatitis C Screening ABSTRACTED Historical Provider HEALTH MAINTENANCE Final Result from Last 3 Months or Most Recently Relevant to Health Maintenance Insurance [employer] Care Teams Manager Mba Relationship Specialty Start Date End Date Sandy Lemos MD PCP - General Internal Medicine 10/15/24
--- OUTSIDE RECORDS SUMMARY | 2025-01-20 11:04 | XMS_ITS | Clinical Summary ---
Author Organization [facility] Address [address] [place] [address] Care Team Providers Care Substation Superintendent Name Role Phone Gudelia Lynne MD Primary Care Provider [phone] Allergies Active Allergy Reactions Criticality Noted Date [...] 01/27/2024 03/15/2021, 07/30/2020, 07/09/2020 Influenza Vaccine (#1) 2025 , 06/15/2019, 07/11/2018, Additional history exists DTap [...] age to complete this topic Care Teams Substation Superintendent Relationship Specialty Start Date End Date Gudelia Lynne MD PCP - General Internal Medicine 09/09/20
--- OUTSIDE RECORDS SUMMARY | 2025-01-20 11:04 | XMS_ITS ---
Author Name [facility] Organization Unknown History of Medication Use Medication Directions Dispensed Refills Start Date End Date Stat traMADol HCl 50 MG Oral Tablet traMADol [...] of wrist (disorder) active 2023-10-15 ProblemAct [facility] Encounters Encounter Type Encounter Reason Primary Diagnosis Location Date Ambulatory Disp fx of middle phalanx of left little finger, init Disp fx of middle phalanx of left little finger, init [facility] 10/10/2024 Ambulatory Disp fx of middle phalanx of left little finger, init Disp fx of middle phalanx of left little finger, init [facility] 03/31/2024 Ambulatory Disp fx of proximal phalanx of left little finger, init Disp fx of proximal phalanx of left little finger, init [facility] 02/20/2024 Ambulatory Disp fx of proximal phalanx of left little finger, init Disp fx of proximal phalanx of left little finger, init [facility] 01/22/2024 Ambulatory Disp fx of proximal phalanx of left little finger, init Disp fx of proximal phalanx of left little finger, init [facility] 12/31/2023 Ambulatory Disp fx of proximal phalanx of left little finger, init Disp fx of proximal phalanx of left little finger, init [facility] 12/10/2023 Ambulatory Disp fx of proximal phalanx of left little finger, init Disp fx of proximal phalanx of left little finger, init [facility] 11/23/2023 Ambulatory Disp fx of proximal phalanx of left little finger, init Disp fx of proximal phalanx of left little finger, init [facility] 11/08/2023 Ambulatory Disp fx of proximal phalanx of left little finger, init Disp fx of proximal phalanx of left little finger, init [facility] 11/06/2023 Ambulatory Disp fx of proximal phalanx of left little finger, init Disp fx of proximal phalanx of left little finger, init [facility] 10/25/2023 Ambulatory [facility] 4 Ambulatory [facility] 4 Ambulatory [facility] 4 Emergency Unspecified fracture of unspecified wrist and hand, initial encounter for closed fracture Unspecified fracture of unspecified wrist and hand, initial encounter for closed fracture [facility] 10/12/2023 Emergency Dizziness and giddiness [facility] 05/08/2022 Care Team Organization Name Specialty Phone Email Start Date End Da te [facility] MELISSA BHATTI Primary Care 0 10/15/2023 01/13/2025 [employer] NO PCP Primary Care 10/13/2023 [employer] 05/08/2022 08/13/2024 [employer] Gudelia Lynne Primary Care 05/08/2022 05/08/2022
--- OUTSIDE RECORDS SUMMARY | 2025-01-20 11:05 | XMS_ITS | Encounter Summary ---
Author Organization [facility] Address [address] [place] [address] Care Team Providers Care Coding And Reimbursement Specialist Name Role Phone Sandy Lemos MD Primary Care Provider [phone] Encounter Details Date Type Department Care Team (Late st Contact Info) Description 08/27/2024 Lab Requisition [facility] - Main Lab [address] [facility] [place] [phone] Haven Ruiz MD [address] [place], [place] [id number] Benign prostatic hyperplasia with lower urinary tract [...] as of this encounter Plan of Treatment Not on file documented as of this encounter Procedures Procedure [...] al Result [facility] [address] [place] [address], documented in this encounter Visit Diagnoses Diagnosis Benign prostatic hyperplasia with lower urinary tract symptoms documented in this encounter Care Teams Coding And Reimbursement Specialist Relationship Specialty Start Date End Date Sandy Lemos MD PCP - General Internal Medicine 10/15/24 documented as of this encounter
== END 2025-01-20 14:43 | disposition home or self-care (01) ==
LOC: HO.HMCC 10:22
PROVIDERS: PCP Internal Medicine; Visit Provider Internal Medicine
DX: R01.1 Cardiac murmur, unspecified (principal); D64.9 Anemia, unspecified; Z00.00 Encounter for general adult medical examination without abnormal findings

== ENCOUNTER → 2025-01-20 10:21 | Outpatient (BNVA) | payer OTHER, SELFPAY | PROVIDERS: PCP Internal Medicine; Visit Provider Internal Medicine | DX: Z00.00 Encounter for general adult medical examination without abnormal findings (principal); R01.1 Cardiac murmur, unspecified; D64.9 Anemia, unspecified; R73.9 Hyperglycemia, unspecified | CPT/HCPCS: 96127 ==

== ENCOUNTER 2025-01-31 09:57 | Outpatient (REF) | payer OTHER, SELFPAY ==
--- OUTSIDE RECORDS SUMMARY | 2025-01-31 10:02 | XMS_ITS | Clinical Summary ---
Author Organization [address] [place] [address] [place] [phone] Phone Care Team Providers Care Director Enterprise Sales Name Role Phone Sandy Lemos MD Primary Care Provider [phone] Medications alfuzosin (UROXATRAL) 10 mg 24 hr [...] Vitamin D deficiency 02/19/2023 Aortic root dilatation (CMS/[facility] V24) 08/01/2022 Overview (04/05/2024): Echo [...] (BMI 35.0-39. 9) with comorbidity (CMS/HCC V24, [facility] V28) 06/15/2005 Overview (04/05/2024): s/p gastric bypass in MAR 2003 Encounters Date Type Department Care Team Description 10/31/2024 Telephone [facility] - [facility] [phone] [facility] [address] [place] [address] Edwina Stephens NP from Last 3 Months Immunizations Name Administration Dates Next Due H1N1 Inj Preservative Free 07/19/2009 Hepatitis B (Bccblnc-U-Jhzbk , Recombivax HB-Adult) 19yo and older 01/05/2016,08/04/2015,07/07/2015 [...] Date Site/Laterality Comments STOMACH SURGERY 03/2003 PROCEDURE: [place] UNLISTED PROCEDURE STOMACH; COMMENT: gastric bypass surgery SHOULDER SURGERY 03/2006 PROCEDURE: HISTORICAL SHOULDER SURGERY; COMMENT: left and right WRIST MASS EXCISION PROCEDURE: DC EXCISION GANGLION WRIST DORSAL/VOLAR PRIMARY; COMMENT: right COLONOSCOPY 07/15/2007 PROCEDURE: DC COLONOSCOPY FLX DX W/COLLJ SPEC WHEN PFRMD; COMMENT: Negative OTHER SURGICAL HISTORY 1995 PROCEDURE: DC ARTHROPLASTY ANKLE W/IMPLANT; COMMENT: left MULTIPLE TOOTH EXTRACTIONS PROCEDURE: HISTORICAL DENTAL EXTRACTION; COMMENT: Dr. Gotti KNEE ARTHROSCOPY 07/2012 PROCEDURE: DC ARTHROSCOPY AID TX SPINE&/FX KNEE W/O FIXJ; [...] hemorrhoids, repeat 5 years. ESOPHAGOGASTRODUODENOSCOPY 09/22/2020 PROCEDURE: DC EGD TRANSORAL BIOPSY SINGLE/MULTIPLE; COMMENT: Visually normal [...] 05/05/2022 Colorectal Cancer Screening: Colonoscopy 06/18/2023 06/18/2018 Depression Screening 05/28/2024 Hypertension/CHF/CAD Annual BMP Blood Test 10/15/2024 07/04/2023 COVID-19 Vaccine ( season) 2025 03/15/2021, 07/30/2020, 07/09/2020 Influenza Vaccine (#1) 2025 , 03/11/2022, 02/10/2022, [...] * Annual BMP Blood Test (07/04/2023) Pathologist [facility] Annual BMP Blood Test ABSTRACTED Historical Provider HEALTH MAINTENANCE Final Result * (ABNORMAL) Lipid panel (02/25/2023) [facility] LDL/HDL Ratio 3 0 - 4 Triglycerides [...] Maintenance Insurance [employer] Care Teams Director Enterprise Sales Relationship Specialty Start Date End Date Sandy Lemos MD PCP - General Internal Medicine 10/15/24
--- OUTSIDE RECORDS SUMMARY | 2025-01-31 10:02 | XMS_ITS | Clinical Summary ---
Author Organization [facility] Address [address] [place] [address] Care Team Providers Care Flight Line Service Attendant Name Role Phone Gudelia Lynne MD Primary Care Provider [phone] Allergies Active Allergy Reactions Criticality Noted Date [...] age to complete this topic Care Teams Flight Line Service Attendant Relationship Specialty Start Date End Date Gudelia Lynne MD PCP - General Internal Medicine 09/09/20
--- OUTSIDE RECORDS SUMMARY | 2025-01-31 10:02 | XMS_ITS | Clinical Summary ---
Author Organization [facility] Address [address] [place] [address] Care Team Providers Care Supervisor Maintenance And Custodians Name Role Phone Pcp, No Primary Care [...] Health Maintenance Due Date Last Done Comments Advance Care Planning 1955 Hepatitis C Virus Screening 1955 Colonoscopy 2001 Pneumococcal Vaccines 50+ (1 of 1 - PCV) 2006 Zoster (Shingles) Vaccine (1 of 2) 2006 COVID-19 Vaccine ( season) 2024 03/15/2021, 07/30/2020, 07/09/2020 Influenza Vaccine 12/26/2024 03/08/2023, , 02/10/2022, Additional history exists RSV Vaccine 60 years and older and Patients (1 - 1-dose 75+ series) 2031 DTaP/Tdap/Td Vaccines (2 - Td or Tdap) 10/11/2033 10/12/2023 Hepatitis B Vaccines Aged Out No long er eligible based on patient's age to complete this topic Insurance [employer] MEDICARE [facility] [place] [employer] Care Teams Supervisor Maintenance And Custodians Relationship Specialty Start Date End Date Pcp, No PCP - General General Medicine 10/12/23
--- OUTSIDE RECORDS SUMMARY | 2025-01-31 10:02 | XMS_ITS | Encounter Summary ---
Author Organization [facility] Address [address] [place] [address] Care Team Providers Care Steam Presser Name Role Phone Sandy Lemos MD Primary Care Provider [phone] Encounter Details Date Type Department Care Team (Late st Contact Info) Description 08/27/2024 Lab Requisition [facility] - Main Lab [address] [facility] [place] [phone] Haven Ruiz MD [address] [place], [place] [phone] Benign prostatic hyperplasia with lower urinary tract [...] al Result [facility] [address] [place] [address], documented in this encounter Visit Diagnoses Diagnosis Benign prostatic hyperplasia with lower urinary tract symptoms documented in this encounter Care Teams Steam Presser Relationship Specialty Start Date End Date Sandy Lemos MD PCP - General Internal Medicine 10/15/24 documented as of this encounter
[2025-01-31 11:11] LABS: MANUAL DIFF FLAG NO
[2025-01-31 11:29] LABS: Hematocrit 39.2 % (42.0-52.0); Hemoglobin 13.7 g/dl (14.0-18.0); Imm Gran Abs Auto 0.03 X10*3/uL (0.00-0.03); Imm Gran Pct Auto 0.5 % (0.0-0.4); Lymphocytes Absolute Auto 1.3 X10*3/uL (1.2-4.9); Mean Corpuscular HGB Conc 34.9 g/dl (31.0-36.0); Mean Corpuscular Hemoglobin 30.7 pg (27.0-33.0); Mean Corpuscular Volume 87.9 fL (80.0-98.0); NRBC Abs Auto 0.000 X10*3/uL (0.0-0.012); NRBC Pct Auto 0.0 /100WBC (0.0-0.2); Platelet Count 171 X10*3/uL (160-400); Red Blood Count 4.46 X10*6/uL (4.60-5.80); White Blood Count 6.5 X10*3/uL (4.8-10.8)
[2025-01-31 11:33] LABS: Hemoglobin A1C 139.1083 umol/L; Total Hemoglobin (HGBA1C) 3517.9755 umol/L
[2025-01-31 11:46] LABS: Alanine Aminotransferase 18 U/L (0-40); Albumin Level 4.2 g/dL (3.5-5.0); Alkaline Phosphatase 73 U/L (39-117); Anion Gap 9 (12-20); Aspartate Amino Transferase 23 U/L (5-37); Blood Urea Nitrogen 9 mg/dL (9-16); Calcium 8.9 mg/dL (8.4-10.2); Carbon Dioxide 26 mmol/L (22-29); Chloride 106 mmol/L (96-108); Cholesterol 166 mg/dL (<200); Estimated Glomerular Filt Rate > 60; HDL Cholesterol 56 mg/dL (>40); Potassium 4.3 mmol/L (3.3-5.1); Sodium 137 mmol/L (135-145); Total Protein 6.8 g/dL (6.5-8.0); Triglycerides 70 mg/dL (<150)
[2025-01-31 13:33] LABS: Appearance Urine Clear; Glucose Urine UA Negative (Negative); PH 6.5 (5.0-9.0); Specific Gravity - Urine 1.010 (1.005-1.025)
== END 2025-01-31 09:58 | disposition home or self-care (01) ==
LOC: HO.HMGCLDS 09:57
PROVIDERS: PCP Internal Medicine; Visit Provider Internal Medicine
DX: Z00.00 Encounter for general adult medical examination without abnormal findings (principal); R73.9 Hyperglycemia, unspecified; R01.1 Cardiac murmur, unspecified; D64.9 Anemia, unspecified; Z98.84 Bariatric surgery status; Z13.6 Encounter for screening for cardiovascular disorders
CPT/HCPCS: 36415; 80053; 80061; 81001; 82043; 82570; 83036; 85025

== ENCOUNTER → 2025-02-23 14:46 | Outpatient (REF) | payer OTHER, SELFPAY ==
--- NOTE | 2025-02-23 14:50 | CA_ITS ---
Transthoracic Echocardiogram Patient (Last, First, Middle): Aris Hernandez, Gender: M Date of : 1955 Age: 69 Procedure Date: 02/23/2025 Procedure Type: Transthoracic Echocardiogram Location: OP Height: 182.88 cm Weight: 121.11 kg BSA: 2.41 m2 Heart Rate: bpm BP: 128 / 70 mmHg Recruiter: /RC Referring MD: Sandy Lemos MD Symptoms: R01.1 - Cardiac murmur, unspecified Study Quality: Technically Difficult ECG Rhythm: Siinus with PACs Conclusions: - The left ventricular systolic function is low normal. The visually estimated ejection fraction is between 50-55%. - There is moderate calcification of the aortic valve. - Moderate plaque is seen in the sino tubular ridge. Findings Left Ventricle Normal left ventricular cavity size. There is moderately increased left ventricular wall thickness. The left ventricular systolic function is low normal. The visually estimated ejection fraction is between 50-55%. Regional wall motion abnormalities can not be excluded due to suboptimal endocardial definition. Diastolic function is normal for age. Right Ventricle Mildly increased right ventricular cavity size. There is normal right ventricular systolic function. Atria The left atrium is mildly dilated. The right atrium is normal in size. Aortic Valve There is moderate calcification of the aortic valve. There is no aortic valve stenosis. There is no aortic valve regurgitation. Mitral Valve The mitral valve appears normal. There is no mitral valve regurgitation. There is no mitral valve stenosis. Pulmonic Valve The pulmonic valve is likely normal. Tricuspid Valve There is mild tricuspid valve regurgitation. There is no evidence of pulmonary hypertension. Great Vessels The asc aorta is normal in size. Moderate plaque is seen in the sino tubular ridge. Venous The inferior vena cava is normal in size and collapses greater than 50% with inspiration. Pericardium/Pleural There is no evidence of pericardial effusion. Prior Study Comparison No prior study available for comparison. Measurements 2D Linear Measurements IVSd: 1.35 0.6-0.9/0.6-1.0 cm LVIDd: 4.79 3.9-5.3/4.2-5.9 cm LVIDd Index: 1.99 2.4-3.2/2.2-3.1 cm/m2 LVIDs: 3.18 2.0-3.6 cm LVPWd: 1.37 0.7-1.1 cm Ao Root: 4.30 2.1-3.5 cm LA Diam: 3.50 2.7-3.8/3.0-4.0 cm LAIDs Index: 1.45 1.5-2.3 cm/m2 LV Mass: 326.21 67-162/88-224 g LV Mass Index: 135.36 43-95/49-115 g/m2 LVOT Diam: 2.00 3.0+(-)1.3 cm 2D Systolic Function EF 4C: 53.90 >55% EF 2C: 53.90 >55% EF BiP: 54.70 >55% Mitral Valve MV Pk E: 0.72 MV PK A: 0.59 MV Decel Time: 168.00 E/A: 1.20 E'Lateral: 10.60 E'Medial: 15.90 E/E' Med: 4.50 E/E' Lat: 6.80 PHT: 49.00 MVA PHT: 4.49 Decel Hart: 4.26 Aortic Valve AoV Pk Christiano: 1.34 AoV Mn Christiano: 0.93 AoV VTI: 0.33 AoV Pk Grad: 7.00 Aov Mn Grad: 4.00 SAADIA Cont.VTI: 1.50 LVOT LVOT Pk Chirstiano: 0.68 LVOT Mn Christiano: 0.44 LVOT VTI: 0.16 LVOT Pk Grad: 2.00 LVOT Mn Grad: 1.00 LVOT Diam: 2.00 LVOT Area: 3.14 Diastolic Function MV Pk E: 0.72 MV Pk A: 0.59 E/A: 1.20 E'Medial: 15.90 E/E' Med: 4.50 E' Laterial: 10.60 E/E' Lat: 6.80 Right Ventricle TAPSE (mm): 24.00 Tricuspid Valve TR Pk Christiano: 2.50 TR Pk Grad: 25.00 RA Press: 3.00 RVSP: 28.00 Great Vessels Aorta Ao Root-2D: 4.30 2.0-3.7 cm Ao Asc: 3.40 2.1-3.4 cm Pulmonary Valve PV Pk Christiano: 0.80 Peak PV Grad: 3.00 Updated in Other Vendor System with Status of Final Tristian Ludwig MD electronically signed on 02/24/2025 11:18:01 AM with status of Final
--- OUTSIDE RECORDS SUMMARY | 2025-02-23 16:40 | XMS_ITS | Clinical Summary ---
Author Organization [email or web address] Address [address] [place] [address] Care Team Providers Care Neurology Nurse Name Role Phone Gudelia Lynne MD Primary Care Provider [phone] Allergies Active Allergy Reactions Criticality Noted Date [...] Fall Risk Assessment 2021 COVID-19 Vaccine () 01/26/2025 03/15/2021, 07/30/2020, 07/09/2020 Influenza Vaccine (#1) 2025 [...] age to complete this topic Care Teams Neurology Nurse Relationship Specialty Start Date End Date Gudelia Lynne MD PCP - General Internal Medicine 09/09/20
--- OUTSIDE RECORDS SUMMARY | 2025-02-23 16:40 | XMS_ITS | Clinical Summary ---
Author Organization [facility] Address [address] [place] [address] Care Team Providers Care Ferryboat Deckhand Name Role Phone Pcp, No Primary Care [...] Vaccine (1 of 2) 2006 Influenza Vaccine 12/26/2024 03/08/2023, , 02/10/2022, Additional history exists COVID-19 Vaccine ( season) 2025 03/15/2021, 07/30/2020, 07/09/2020 RSV Vaccine 60 years and older and Patients (1 - 1-dose 75+ series) 2031 DTaP/Tdap/Td Vaccines (2 - Td or Tdap) 10/11/2033 10/12/2023 Hepatitis B Vaccines Aged Out No long er eligible based on patient's age to complete this topic Insurance [employer] MA[employer] MEDICARE [facility] [place] [employer] Care Teams Ferryboat Deckhand Relationship Specialty Start Date End Date Pcp, No PCP - General General Medicine 10/12/23
--- OUTSIDE RECORDS SUMMARY | 2025-02-23 16:40 | XMS_ITS | Clinical Summary ---
Author Organization [address] [place] [address] [place] [phone] Phone Care Team Providers Care Electrical And Instrument Engineer Name Role Phone Sandy Lemos MD Primary Care Provider [phone] Medications alfuzosin (UROXATRAL) 10 mg 24 hr [...] Vitamin D deficiency 02/19/2023 Aortic root dilatation (CMS[facility]) 08/01/2022 Overview (04/05/2024): Echo [...] Severe obesity (BMI 35.0-39. 9) with comorbidity ([facility], [facility] V28) 06/15/2005 Overview (04/05/2024): s/p gastric bypass in MAR 2003 Immunizations Immunization Administration Dates Next Due H1N1 Inj Preservative Free 07/19/2009 Hepatitis B (Tdqoyru-J-Mrusw , Recombivax HB-Adult) 19yo and older 01/05/2016,08/04/2015,07/07/2015 [...] Date Site/Laterality Comments STOMACH SURGERY 03/2003 PROCEDURE: [place] UNLISTED PROCEDURE STOMACH; COMMENT: gastric bypass surgery SHOULDER SURGERY 03/2006 PROCEDURE: HISTORICAL SHOULDER SURGERY; COMMENT: left and right WRIST MASS EXCISION PROCEDURE: HI EXCISION GANGLION WRIST DORSAL/VOLAR PRIMARY; COMMENT: right COLONOSCOPY 07/15/2007 PROCEDURE: HI COLONOSCOPY FLX DX W/COLLJ SPEC WHEN PFRMD; COMMENT: Negative OTHER SURGICAL HISTORY 1995 PROCEDURE: HI ARTHROPLASTY ANKLE W/IMPLANT; COMMENT: left MULTIPLE TOOTH EXTRACTIONS PROCEDURE: HISTORICAL DENTAL EXTRACTION; COMMENT: Dr. Gotti KNEE ARTHROSCOPY 07/2012 PROCEDURE: HI ARTHROSCOPY AID TX SPINE&/FX KNEE W/O FIXJ; [...] hemorrhoids, repeat 5 years. ESOPHAGOGASTRODUODENOSCOPY 09/22/2020 PROCEDURE: HI EGD TRANSORAL BIOPSY SINGLE/MULTIPLE; COMMENT: Visually normal [...] * Annual BMP Blood Test (07/04/2023) Pathologist [facility] Annual BMP Blood Test ABSTRACTED Historical Provider HEALTH MAINTENANCE Final Result * (ABNORMAL) Lipid panel (02/25/2023) [facility] LDL/HDL Ratio 3 0 - 4 Triglycerides 94 0 - 150 mg/dL Cholesterol 204(A) 0 - 200 mg/dL HDL 75 >=40 mg/dL LDL Cholesterol 111(A) 0 - 100 mg/dL Blood Venous blood specimen / Unknown Historical Provider LAB BLOOD ORDERABLES [facility] Result * Abdominal Aortic Aneurysm Screen (07/29/2021) Pathologist [facility] Abdominal Aortic Aneurysm (AAA) Screening ABSTRACTED Anatomical Region Laterality Modality Other Historical Provider HEALTH MAINTENANCE Final Result * Colonoscopy (06/18/2018) Pathologist [facility] Colonoscopy ABSTRACTED Anatomical Region Laterality Modality Other us Historical Provider HEALTH MAINTENANCE Final Result * Hepatitis C Screening (09/21/2012) Hepatitis C Screening ABSTRACTED Historical Provider HEALTH MAINTENANCE Final Result from Last 3 Months or Most Recently Relevant to Health Maintenance Insurance [employer] Care Teams Electrical And Instrument Engineer Relationship Specialty Start Date End Date Sandy Lemos MD PCP - General Internal Medicine 10/15/24
--- OUTSIDE RECORDS SUMMARY | 2025-02-23 16:40 | XMS_ITS | Encounter Summary ---
Author Organization [facility] Address [address] [place] [address] Care Team Providers Care Forensic Photographer Name Role Phone Sandy Lemos MD Primary Care Provider [phone] Encounter Details Date Type Department Care Team (Late st Contact Info) Description 08/27/2024 Lab Requisition [facility] - Main Lab [address] [facility] [place] [id number] Haven Ruiz MD [address], [place] [id number] Benign prostatic hyperplasia with lower urinary tract [...] LAB CHEMISTRY METHOD 08/27/2024 12:00 PM EDT [facility] Blood Venous blood specimen / Unknown 08/27/2024 8:28 AM EDT 08/27/2024 11:24 AM EDT Narrative [facility] - 08/27/2024 12:00 PM EDT The Siemens Advia Centaur Chemiluminescent Immunoassay is used. Results obtained with different assay methods or kits cannot be used interchangeably. Results cannot be interpreted as absolute evidence of the presence or absence of malignant disease. us Haven Ruiz MD LAB BLOOD ORDERABLES Fin al Result [facility] [address] [place] [address], documented in this encounter Visit Diagnoses Diagnosis Benign prostatic hyperplasia with lower urinary tract symptoms documented in this encounter Care Teams Forensic Photographer Relationship Specialty Start Date End Date Sandy Lemos MD PCP - General Internal Medicine 10/15/24 documented as of this encounter
== END ==
LOC: HO.CARD 14:46
PROVIDERS: PCP Internal Medicine; Visit Provider Internal Medicine
DX: R01.1 Cardiac murmur, unspecified (principal)
CPT/HCPCS: 93306

== ENCOUNTER → 2025-02-23 14:50 | Outpatient (BNV) | payer OTHER, SELFPAY | PROVIDERS: PCP Internal Medicine; Visit Provider Internal Medicine | DX: I35.8 Other nonrheumatic aortic valve disorders (principal); I70.0 Atherosclerosis of aorta | CPT/HCPCS: 93306 ==